=== PATIENT | male | born 1945 | race Caucasian/White ===

== ENCOUNTER 2022-06-06 10:15 | Emergency (ER) | payer OTHER, MEDICARE, SELFPAY ==
[2022-06-06 10:19] VITALS: BP 139/71; PULSE 43; TEMP 35.9; O2SAT 99; BMI 31.2
--- NOTE | 2022-06-06 10:38 | CRLHL7_ITS ---
For Patients: As a result of the Century Cures Act, medical imaging exams and procedure reports are released immediately into your electronic medical record. You may view this report before your referring provider. If you have questions, please contact your health care provider. Indication: Pain on lateral side of ankle Comparison: None available. Technique: AP, Lateral, and Oblique views right ankle were obtained Findings: There is no displaced fracture or dislocation. The ankle mortise is symmetrical. The talar dome is smooth and intact. Degenerative changes of the tibiotalar joint is appreciated with marginal osteophyte formation. There is moderate malleolar soft tissue swelling. Impression: Moderate malleolar soft tissue swelling and degenerative changes of the tibiotalar joint with acute osseous abnormality. Dictated by Parrish Flaherty MD @ 06/06/2022 11:40:16 AM (Electronically Signed)
[2022-06-06 11:16] VITALS: PULSE 64; O2SAT 97
--- NOTE | 2022-06-06 11:40 | ED_ITS ---
HPI - Extremity Injury (Lower) General Chief Complaint: Extremity Pain/Injury, Lower Stated Complaint: Right leg pain Time Seen by Provider: 06/06/22 10:31 History of Present Illness HPI Narrative: 76-year-old man presenting to the emergency department with complaint of right ankle pain. This began yesterday evening has continued through the morning. He has not tried any particular treatments. Does have a history of left knee pain and is anticipating replacement of his left knee soon as well as his right hip. His right hip is also acting up causing more discomfort. Describes it radiating pain down the upper leg a little bit and gestures to the groin area. Does use a cane in the right hand. Has not noticed any joint redness or swelling. Does not recall prior injury to his right ankle. Does have a history of DVT. Looks like is anticoagulated with apixaban. Does also have diclofenac gel but has not used it with regard to this pain. Rather distressing or degree of throbbing discomfort overnight in the inside of his right ankle. Later feels like he is going to need some better pain management to get him to his follow-up appointments at the [place]. he has evaluations pending for what he describes as skipped beats but also has been noted as bradycardia. He is asymptomatic with this. I see diagnoses of atrial bigeminy as well as bradycardia and record. Related Data Home Medications Medication Instructions Recorded Confirmed apixaban 5 mg tablet (Eliquis) 5 mg PO BID 01/03/22 01/03/22 hydrochlorothiazide 25 mg tablet 25 mg PO QAM 01/03/22 01/03/22 lisinopril 40 mg tablet 40 mg PO QDAY 01/03/22 01/03/22 Allergies Allergy/AdvReac Type Severity Reaction Status Date / Time No Known Allergies Allergy Verified 01/03/22 08:18 Review of Systems Status of ROS: Reports: 6 or more systems reviewed and unremarkable except as noted in History and below [facility] Medical History Atrial bigeminy Bradycardia Deep vein thrombosis (DVT) of right lower extremity History of DVT (deep vein thrombosis) Hypertension Infection due to severe acute respiratory syndrome coronavirus 2 (SARS-CoV-2) Pulmonary air embolism Short of breath on exertion Social History Smoking Status: Former smoker How often do you have a drink containing alcohol: never How often do you have six or more drinks on one occasion: Never AUDIT-C Alcohol total score: 0 Non-prescribed substance use: denies use Exam Narrative: Exam Narrative: Pleasant. A little hard of hearing. NAD. Well-perfused extremities are warm. Strong and equal dorsalis pedis pulses. Good strength. Flexion and extension o f the ankle on the right causes only a little discomfort inferior to the medial malleolus as he reports. Negative Homans. No swelling. Maybe mild erythema and some more prominent venous varicosities no medial aspect of the right ankle relative to the left. He is sore to palpation just inferior and slightly anterior to the medial malleolus. No bone percussive tenderness. No plantar tenderness. No laxity to anterior posterior or mediolateral stressors about the heel or ankle. Heart rate is little low around bradycardic and palpates same. Const: Vital Signs, click to edit/add: Vital Signs - 24 hr 06/06/22 10:19 06/06/22 11:16 Temperature 96.6 F L Pulse Rate [Pulse Oximeter] 43 L 64 Blood Pressure [Ri ght Upper Arm] 139/71 Pulse Oximetry 99 97 Oxygen Delivery Me thod Room Air Room Air Documenting provider has reviewed patient's vital signs: yes Course Vital Signs Vital signs: Initial Vital Signs Temperature 96.6 F L 06/06/22 10:19 Temperature Source Temporal Artery Scan 06/06/22 10:19 Pulse Rate 43 L 06/06/22 10:19 Blood Pressure 139/71 06/06/22 10:19 Blood Pressure Mean 93 06/06/22 10:19 Blood Pressure Position Sitting 06/06/22 10:19 Pulse Oximetry 99 06/06/22 10:19 Oxygen Delivery Method 06/06/22 10:19 Vital Signs Temperature 96.6 F L 06/06/22 10:19 Pulse Rate 43 L 06/06/22 10:19 Blood Pressure 139/71 06/06/22 10:19 Pulse Oximetry 99 06/06/22 10:19 Oxygen Delivery Method 06/06/22 10:19 Temperature 96.6 F L 06/06/22 10:19 Pulse Rate 64 06/06/22 11:16 Blood Pressure 139/71 06/06/22 10:19 Pulse Oximetry 97 06/06/22 11:16 Oxygen Delivery Method 06/06/22 11:16 MDM - Extremity Injury (Lower) MDM Narrative Medical decision making narrative: Will do an x-ray. There has been no fever and I do not see marked inflammatory changes nor I think further laboratory workup is warranted at this point. Furthermore this is brief duration. X-rays two view of the right ankle reviewed by me shows osteoarthritic changes. I do not see acute abnormality. Joint space looks to be fairly well maintained. Radiology over-read also noting soft tissue swelling. Did place some of his diclofenac gel over the medial malleolar aspect of the ankle. Medical Records Attestation: I reviewed the patient's medical records. Discharge Plan Discharge Clinical Impression: Ankle pain Patient Disposition: Home, Self-Care Condition: Stable Additional Instructions: I think it is still unclear as to what is causing your ankle pain. I do think that it might have been brought on by how you might be compensating for left knee pain. You do have some arthritis in the ankle. There are also varicose veins that might be a little inflamed. Since you are taking anticoagulation, regular dosing of ibuprofen or naproxen would not be a good idea. Here and there you could probably take up to 800 mg of ibuprofen 3 times a day or up to 500 mg of naproxen 2 times daily. Otherwise a longer-term and safer course of action would be to take up to 1000 mg of acetaminophen up to every 6 hours. If that is not helping, and especially for the the middle of the night throbbing pain, some Vida from [facility] might be helpful. Remember that there was 325 mg of acetaminophen in each tablet of this Vida. I would also encourage you to try your diclofenac gel first or maybe those Lidoderm patches cut down to fit as discussed. See how this goes over the next week and then re-evaluate. Has not been going on very long yet. I would in particular consider icing your ankle 2-3 times daily over the next few days. I like those screw top icing bags, fill with ice and then some water. Prescriptions: No Action hydrochlorothiazide 25 mg tablet 25 mg PO QAM Eliquis 5 mg tablet 5 mg PO BID lisinopril 40 mg tablet 40 mg PO QDAY Follow Up/Referrals: Provider,Not a Local [Primary Care Provider] - Stand Alone Forms: [facility] Info Instructions
== END 2022-06-06 11:57 | disposition home or self-care (01) ==
PROVIDERS: Emergency Provider Family Medicine
DX: M25.571 Pain in right ankle and joints of right foot (principal)
CPT/HCPCS: 73600; 99283

== ENCOUNTER 2023-09-28 10:01 | Emergency (ER) | payer OTHER, SELFPAY ==
--- NOTE | 2023-09-28 10:14 | ED.GENADULT ---
HPI - General Adult General Date Seen: 09/28/23 Chief complaint: Extremity Pain/Injury, Lower Stated complaint: L foot pain Time Seen by Provider: 09/28/23 10:13 History of Present Illness HPI narrative: 78 yo M with h/o DVT (on long-term anticoagulation with apixaban, recently consistent with taking his medication), HTN, CAD, carotid stenosis status post carotid endarterectomy, but no history of cancer, diabetes, or immunosuppression. He presents to the ER today with swelling, discomfort and erythema affecting his left foot. He does not have any recent injury or any known problems. It started about 3 or 4 days ago and has been getting gradually worse. He has noted that it now has also developed redness and swelling. He is a bit fatigued today and perhaps a bit achy but is not having any fever or chills. No swelling in his calf. No chest pain. He has no history of peripheral artery disease or diabetes or peripheral neuropathy. Related Data Home Medications Medication Instructions Recorded Confirmed apixaban 5 mg tablet (Eliquis) 5 mg PO BID 01/03/22 01/03/22 hydrochlorothiazide 25 mg tablet 25 mg PO QAM 01/03/22 01/03/22 lisinopril 40 mg tablet 40 mg PO QDAY 01/03/22 01/03/22 Previous Rx's Medication Instructions Recorded terbinafine HCl 1 % topical cream 1 applic topical BID #30 grams 09/28/23 Allergies Allergy/AdvReac Type Severity Reaction Status Date / Time No Known Allergies Allergy Verified 01/03/22 08:18 [facility] Medical History Atrial bigeminy Bradycardia Deep vein thrombosis (DVT) of right lower extremity History of DVT (deep vein thrombosis) Hypertension Infection due to severe acute respiratory syndrome coronavirus 2 (SARS-CoV-2) Pulmonary air embolism Short of breath on exertion Social History Smoking Status: Former smoker How often do you have a drink containing alcohol: never How often do you have six or more drinks on one occasion: Never AUDIT-C Alcohol total score: 0 Non-prescribed substance use: denies use Exam Narrative: Exam Narrative: Constitutional: Appears well-developed and well-nourished. Alert. Conversant. Non toxic. HENT: Head: Atraumatic. Nose: Nose normal. Mouth/Throat: Oral mucosa is clear and moist. no trismus. Eyes: Conjunctivae normal. EOM normal. Pupils equal, round, and reactive to light. No scleral icterus. Neck: Normal range of motion. Neck supple. No tracheal deviation present. Cardiovascular: Normal rate, regular rhythm. No gallop. No friction rub. No murmur heard. Symmetric PT artery pulses Pulmonary/Chest: Effort normal. No stridor. No respiratory distress. No wheezes. No rales. No rhonchi . No tenderness. Abdominal: Soft. No distension. No mass. No tenderness. No rebound. No guarding. Musculoskeletal: RUE: Normal range of motion. No tenderness. No deformity LUE: Normal range of motion. No tenderness. No deformity RLE: Normal range of motion. No edema. No tenderness. No deformity LLE: Normal range of motion in hip. Somewhat stiff in his knee and he has actually anticipating having a knee replacement in about 1 month by a surgeon at [place]. No calf edema. No palpable cord. There is erythema and subtle swelling affecting the forefoot, in particular adjacent to the 2nd-5th toes. There erythema spreads up the forefoot more on the lateral side medially about skilled nursing up the midfoot. There is very faint erythema extending proximally from there with a small faint tender all of ascending lymphangitis that extends to just proximal to the medial ankle.. No ankle or calf edema. There is maceration of the skin between the 3rd and 4th toes and the 4th and 5th toes which I think may either be from moisture or possibly a mild case of athlete's foot. Suspect this is the nidus for cellulitis. No palpable fluctuance. No crepitus or gas in the soft tissue. No deformity Neurological: Alert and oriented to person, place, and time. Normal strength. CN II-VII intact. No sensory deficit. GCS eye subscore is 4. GCS verbal subscore is 5. GCS motor subscore is 6. Normal coordination Skin: Skin is warm and dry. No rash noted. No pallor. Normal capillary refill. Psychiatric: Normal mood. Normal affect. Const: Vital Signs, click to edit/add: Vital Signs - 24 hr 09/28/23 10:21 Temperature 97.8 F Pulse Rate [Right Pulse Oximeter] 62 Respiratory Rate 18 Blood Pressure [Ri ght Upper Arm] 125/76 Pulse Oximetry 98 Oxygen Delivery Me thod Room Air Course Vital Signs Vital signs: Initial Vital Signs Temperature 97.8 F 09/28/23 10:21 Temperature Source Temporal Artery Scan 09/28/23 10:21 Pulse Rate 62 09/28/23 10:21 Respiratory Rate 18 09/28/23 10:21 Blood Pressure 125/76 09/28/23 10:21 Blood Pressure Mean 92 09/28/23 10:21 Blood Pressure Position Sitting 09/28/23 10:21 Pulse Oximetry 98 09/28/23 10:21 Oxygen Delivery Method Room Air 09/28/23 10:21 Vital Signs Temperature 97.8 F 09/28/23 10:21 Pulse Rate 62 09/28/23 10:21 Respiratory Rate 18 09/28/23 10:21 Blood Pressure 125/76 09/28/23 10:21 Pulse Oximetry 98 09/28/23 10:21 Oxygen Delivery Method Room Air 09/28/23 10:21 Temperature 97.8 F 09/28/23 10:21 Pulse Rate 62 09/28/23 10:21 Respiratory Rate 18 09/28/23 10:21 Blood Pressure 125/76 09/28/23 10:21 Pulse Oximetry 98 09/28/23 10:21 Oxygen Delivery Method Room Air 09/28/23 10:21 Medical Decision Making MDM Narrative Medical decision making narrative: This patient presents for evaluation of skin redness, swelling, discomfort affecting his left forefoot and extending onto his left mid foot with a small tender over ascending lymphangitis just up to the ankle. The history, physical exam is consistent with cellulitis. There do not appear at this time to be any complication of cellulitis including abscess, necrotizing fascitis, lymphangitis, lymphadenitis, osteomyelitis, sepsis, or shock. The patient is not immunosuppressed or diabetic. He has a history of DVT affecting his right leg, years ago but has been on apixaban. He does not have any swelling or edema of the ankle or calf or other parts of his legs to suggest DVT today. No history of trauma to raise concern for possible toe fracture or forefoot fracture. He does have signs of athlete's foot which probably created maceration between the toes and was the nidus for this infection. Supportive outpatient management is indicated with antibiotics. Will put him on Bactrim and Keflex. Also topical treatment for athlete's foot. He requested [facility] prescriptions. The patient is instructed to follow-up with primary care physician to ensure no progression and rapid resolution and given precautions to return if high fever, spread greater than 2cm outside of the marked area, worsening pain, vomiting or any other worsening. Questions answered and return precautions reviewed. Discharge Plan Discharge Clinical Impression: Cellulitis of foot Patient Disposition: Home, Self-Care Condition: Stable Instructions: Cellulitis (ED) Additional Instructions: As we discussed, please take the antibiotics and use the antifungal cream for her foot to treat athlete's foot. Monitor the infection carefully and if you are getting worse-such as spreading redness, worsening pain, increasing swelling, fever chills, worsening weakness, please come back to the ER or see her doctor right away to be rechecked. Prescriptions: New terbinafine HCl 1 % cream 1 applic topical BID Qty: 30 0RF No Action hydrochlorothiazide 25 mg tablet 25 mg PO QAM Eliquis 5 mg tablet 5 mg PO BID lisinopril 40 mg tablet 40 mg PO QDAY Follow Up/Referrals: Provider,Not a Local [Primary Care Provider] - Stand Alone Forms: [employer] Info Instructions
[2023-09-28 10:21] VITALS: BP 125/76; PULSE 62; RESP 18; TEMP 36.6; O2SAT 98
--- OUTSIDE RECORDS SUMMARY | 2023-09-28 10:50 | XMS_ITS | Continuity of Care Document ---
Author Name [facility] Organization [facility] Care Team Providers Care Primary Care Nurse Name Role Phone [facility] Unavailable Unavailable Problems Combined list of problems from Department of Defense and [facility] Affairs facilities. It does not include entries that were removed or entered in error. 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 [facility] Cataract nos Active Condition [facility] Constipation Active Condition [facility] Environmental Allergies (ICD-9-CM 477.9) Active Condition [facility] External thrombosed hemorrhoids (ICD-9-CM 455.4) Active Condition [facility] Gastroesophageal Reflux Disorder * (ICD-9-CM 530.81) Active Condition [facility] Gout * (ICD-9-CM 274.9) Active Condition [facility] Hiatal hernia * (ICD-9-CM 553.3) Active Condition [facility] History of carotid endarterectomy Active Condition Mar 13, 2023 Entered By: DESTINI JJ Comment: Rt CEA and bovine patch repair, 08/2022 [facility] Hyperlipidemia Active Condition [facility] Hypertension, Nos Active [facility] Knee pain Active Condition [facility] Long-term current use of anticoagulant Active Condition [facility] Obesity * (ICD-9-CM 278.00) Active Condition [facility] Obstructive Sleep Apnea (Adult) (Pediatric) (ICD-9-CM 327.23) Active Condition [facility] Obstructive sleep apnea syndrome Active Condition [facility] Osteoarthritis Active Condition Aug 072012 Entered By: VALERY BRITO Comment: S/P left total hip in 2005. 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 clerk [facility] Ventricular premature complex Active Condition [facility] Diagnosis: ICD-10-CM Z79.01 snf (current) use of anticoagulants Active Diagnosis ISAIAH Tam [facility] Diagnosis: ICD-10-CM M79.673 Pain in unspecified foot Active Diagnosis KATIA BAILEY [facility] Diagnosis: ICD-10-CM H90.3 Sensorineural hearing loss, bilateral Active Diagnosis [facility] Diagnosis: ICD-10-CM M25.569 Pain in unspecified knee Active Diagnosis KATAI BAILEY [facility] Diagnosis: ICD-10-CM H90.5 Unspecified sensorineural hearing loss Active Diagnosis [facility] Diagnosis: ICD-10-CM Z46.1 Encounter for fitting and adjustment of hearing aid Active Diagnosis [facility] Diagnosis: ICD-10-CM Z71.9 Counseling, unspecified Active Diagnosis [facility] Diagnosis: ICD-10-CM Z23 Encounter for immunization Active Diagnosis [facility] Diagnosis: ICD-10-CM Z98.890 Other specified postprocedural states Active Diagnosis [facility] Diagnosis: ICD-10-CM 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 [facility] Yonatan [facility] Diagnosis: ICD-10-CM Z13.6 Encounter for screening for cardiovascular disorders Active Diagnosis [facility] Diagnosis: ICD-10-CM R31.9 Hematuria, unspecified Active Diagnosis [facility] Diagnosis: ICD-10-CM I65.21 Occlusion and stenosis of right carotid artery Active Diagnosis [facility] Diagnosis: ICD-10-CM H93.13 Tinnitus, bilateral Active Diagnosis [facility] Diagnosis: ICD-10-CM R33.9 Retention of urine, unspecified Active Diagnosis NICOLÁS CARCAMO [facility] Diagnosis: ICD-10-CM Z71.89 Other specified counseling Active Diagnosis [facility] Diagnosis: ICD-10-CM R26.89 Other abnormalities of gait and mobility Active Diagnosis [facility] SEQUE[facility] Diagnosis: ICD-10-CM I10 Essential (primary) hypertension Active Diagnosis [facility] Diagnosis: ICD-10-CM Z48.89 Encounter for other specified surgical aftercare Active Diagnosis [facility] CAR[facility] Diagnosis: ICD-10-CM I65.29 Occlusion and stenosis of unspecified carotid artery Active Diagnosis [facility] oYnatan [facility] Admit Reason: R CAROTID ARTERY STENOSIS Active Diagnosis [facility] Diagnosis: ICD-10-CM H53.9 Unspecified visual disturbance Active Diagnosis [facility] Diagnosis: ICD-10-CM E86.0 Dehydration Active Diagnosis [facility] Diagnosis: ICD-10-CM 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 Medication Details Route Status Patient Instructions Prescription Expires Prescription Number Last Dispense Date Ordering Provider Order Date Order Qty Source ACETAMINOPH EN 500MG TAB TAKE TWO TABLETS BY MOUTH THREE TIMES A DAY NEEDED FOR PAIN FOR PAIN ORALLY 09/27/2022 [id number] PATRIC MAURICE 2022 100 [facility] APIXABAN 5MG TAB TAKE ONE TABLET BY MOUTH EVERY 12 HOURS TO TREAT AND/OR PREVENT BLOOD CLOTS ORALLY SUSPEND ED 05/25/2024 [id number] NO AZEVEDO 2023 180 [facility] APIXABAN 5MG TAB TAKE ONE TABLET BY MOUTH EVERY 12 HOURS TO TREAT AND/OR PREVENT BLOOD CLOTS ORALLY DISCONT INUED 09/03/2023 [id number] NO AZEVEDO 2022 180 [facility] APIXABAN 5MG TAB TAKE ONE TABLET BY MOUTH EVERY 12 HOURS TO PREVENT BLOOD CLOTS ORALLY DISCONT INUED 09/28/2022 [id number] ANITRA LU 2022 60 [facility] APIXABAN 5MG TAB TAKE ONE TABLET BY MOUTH EVERY 12 HOURS TO PREVENT BLOOD CLOTS ORALLY DISCONT INUED 02/21/2023 [id number] NITHYA CAIN 2021 180 [facility] ASPIRIN 81MG TAB,EC TAKE ONE TABLET BY MOUTH EVERY DAY TO PREVENT BLOOD CLOTS DO NOT CHEW ORALLY 08/29/2023 [id number] PATRIC MAURICE 2022 120 [facility] ATORVASTATI N CA 40MG TAB TAKE ONE TABLET BY MOUTH AT BEDTIME FOR CHOLESTE ROL ORALLY SUSPEND ED 06/04/2024 [id number] 4 APOLLO JJ 2023 90 [place] [facility] ATORVASTATI N CA 40MG TAB TAKE ONE TABLET BY MOUTH AT BEDTIME FOR CHOLESTE ROL ORALLY DISCONT INUED 08/21/2023 [id number] 3 JJ,ND NA 2022 90 [place] [facility] DICLOFENAC NA 1% GEL,TOP APPLY 4 GRAMS TOPICALL Y TWICE A DAY TO AFFECTED AREA FOR PAIN. *USE DOSE CARD IN BOX TO MEASURE DOSE. MAX 32 GRAMS PER DAY. TOPICA LLY ACTIVE 10/24/2023 [id number] CHETANER,BIGG REL 2022 200 [place] [facility] DOCUSATE NA 50MG/SENNOS IDES 8.6MG TAB TAKE 1 TABLET BY MOUTH TWICE A DAY NEEDED FOR CONSTIPA TION ORALLY SUSPEND ED 03/13/2024 [id number] [place] 2022 100 [place] [facility] DOCUSATE NA 50MG/SENNOS IDES 8.6MG TAB TAKE 1 TABLET BY MOUTH TWICE A DAY NEEDED FOR CONSTIPA TION ORALLY DISCONT INUED 12/31/2022 [id number] 3 [place] NA 2022 100 [place] [facility] DOCUSATE NA 50MG/SENNOS IDES 8.6MG TAB TAKE 1 TABLET BY MOUTH TWICE A DAY NEEDED FOR CONSTIPA TION ORALLY 01/30/2023 [id number] 3 [place] NA 2022 100 [place] [facility] DOCUSATE NA 50MG/SENNOS IDES 8.6MG TAB TAKE 1 TABLET BY MOUTH TWICE A DAY NEEDED FOR CONSTIPA TION ORALLY 10/18/2022 [id number] ANITRA LU 2022 100 [place] [facility] [facility] FINASTERIDE 5MG TAB TAKE ONE TABLET BY MOUTH EVERY DAY FOR PROSTATE ORALLY ACTIVE 12/05/2023 [id number] ALCIRA CROFT 2023 30 [place] [facility] FINASTERIDE 5MG TAB TAKE ONE TABLET BY MOUTH EVERY DAY FOR PROSTATE ORALLY DISCONT INUED 12/05/2023 [id number] ALCIRA CROFT 2022 30 [place] [facility] [facility] HYDROCHLORO THIAZIDE 12.5MG TAB TAKE ONE TABLET BY MOUTH EVERY DAY FOR BLOOD PRESSURE ORALLY SUSPEND ED 05/18/2024 [id number] 4 APOLLO JJ NA 2023 90 [place] [facility] HYDROCHLORO THIAZIDE 12.5MG TAB TAKE ONE TABLET BY MOUTH EVERY DAY FOR BLOOD PRESSURE ORALLY DISCONT INUED 08/14/2023 [id number] PARVIZ,APOLLO NA 2022 90 [place] [facility] LIDOCAINE 5% PATCH APPLY ONE PATCH FOR EACH KNEE TOPICALL Y EVERY DAY NEEDED FOR UP TO 12 HOURS FOR PAIN TOPICA LLY ACTIVE 07/17/2024 [id number] APOLLO JJ NA 2023 180 [place] [facility] LIDOCAINE 5% PATCH APPLY 1 PATCH TOPICALL Y EVERY DAY NEEDED FOR UP TO 12 HOURS FOR PAIN TOPICA LLY DISCONT INUED (EDIT) 07/15/2024 [id number] APOLLO JJ NA 2023 60 [place] [facility] LIDOCAINE 5% PATCH APPLY 1 PATCH TOPICALL Y EVERY DAY NEEDED FOR UP TO 12 HOURS FOR PAIN TOPICA LLY DISCONT INUED (EDIT) 08/05/2023 [id number] APOLLO JJ NA 2023 30 [place] [facility] LIDOCAINE 5% PATCH APPLY 1 PATCH TOPICALL Y EVERY DAY NEEDED FOR UP TO 12 HOURS FOR PAIN TOPICA LLY DISCONT INUED 07/09/2023 [id number] APOLLO JJ NA 2023 30 [place] [facility] LIDOCAINE 5% PATCH APPLY 1 PATCH TOPICALL Y EVERY DAY NEEDED FOR PAIN TOPICA LLY DISCONT INUED 06/03/2023 [id number] 3 APOLLO JJ NA 2022 30 [place] [facility] LIDOCAINE 5% PATCH APPLY 1 PATCH TOPICALL Y EVERY DAY NEEDED FOR PAIN TOPICA LLY DISCONT INUED 04/26/2023 [id number] 3 PARVIZ,APOLLO NA 2022 30 [place] [facility] LIDOCAINE 5% PATCH APPLY 1 PATCH TOPICALL Y EVERY DAY NEEDED FOR PAIN TOPICA LLY DISCONT INUED 03/05/2023 [id number] PARVIZ,APOLLO NA 2022 30 [place] [facility] LIDOCAINE 5% PATCH APPLY 1 PATCH TOPICALL Y EVERY DAY NEEDED FOR PAIN TOPICA LLY DISCONT INUED 01/29/2023 [id number] PARVIZ,HI NA 2022 30 [place] [facility] LIDOCAINE 5% PATCH APPLY 1 PATCH TOPICALL Y EVERY DAY NEEDED FOR PAIN TOPICA LLY DISCONT INUED 01/10/2023 [id number] 3 PARVIZ,APOLLO NA 2022 30 [place] [facility] LIDOCAINE 5% PATCH APPLY 1 PATCH TOPICALL Y EVERY DAY NEEDED FOR PAIN TOPICA LLY DISCONT INUED 12/04/2022 [id number] PARVIZ,APOLLO NA 2022 30 [place] [facility] LIDOCAINE 5% PATCH APPLY 1 PATCH TOPICALL Y EVERY DAY NEEDED FOR PAIN TOPICA LLY DISCONT INUED 10/30/2022 [id number] PARVIZ,APOLLO NA 2022 30 [place] [facility] LIDOCAINE 5% PATCH APPLY 1 PATCH TOPICALL Y EVERY DAY NEEDED FOR PAIN TOPICA LLY 09/27/2022 [id number] SYRIACPATRIC A 2022 30 [place] [facility] LISINOPRIL 40MG TAB TAKE ONE TABLET BY MOUTH EVERY DAY FOR HEART AND BLOOD PRESSURE ORALLY ACTIVE 12/12/2023 [id number] BIGG IRENE REL 2022 90 [place] [facility] LISINOPRIL 40MG TAB TAKE ONE TABLET BY MOUTH EVERY DAY FOR HEART AND BLOOD PRESSURE ORALLY DISCONT INUED 10/18/2022 [id number] BIGG IRENE 2021 90 [place] [facility] METOPROLOL SUCCINATE 50MG TAB,SA TAKE ONE-HALF TABLET BY MOUTH EVERY DAY ORALLY SUSPEND ED 12/11/2023 [id number] TASH DIA 2022 45 [place] [facility] METOPROLOL SUCCINATE 50MG TAB,SA TAKE ONE-HALF TABLET BY MOUTH EVERY DAY ORALLY DISCONT INUED 01/28/2023 [id number] TASH DIA 2021 45 [place] [facility] PSYLLIUM PWDR,ORAL TAKE 1 TABLESPO ONFUL BY MOUTH EVERY DAY FOR REGULAR BOWEL MOVEMENT S ORALLY ACTIVE 03/13/2024 [id number] APOLLO JJ 2022 1170 [place] [facility] [facility] TAMSULOSIN HCL 0.4MG CAP TAKE ONE CAPSULE BY MOUTH EVERY EVENING FOR PROSTATE ORALLY SUSPEND ED 04/27/2024 [id number] 4 APOLLO JJ 2022 90 [place] [facility] TAMSULOSIN HCL 0.4MG CAP TAKE ONE CAPSULE BY MOUTH EVERY EVENING FOR PROSTATE ORALLY DISCONT INUED 05/10/2023 [id number] 3 APOLLO JJ 2022 30 [place] [facility] TAMSULOSIN HCL 0.4MG CAP TAKE ONE CAPSULE BY MOUTH EVERY EVENING FOR PROSTATE ORALLY DISCONT INUED 04/09/2023 [id number] 3 APOLLO JJ 2022 30 [place] [facility] TAMSULOSIN HCL 0.4MG CAP TAKE ONE CAPSULE BY MOUTH EVERY EVENING FOR PROSTATE ORALLY DISCONT INUED 03/04/2023 [id number] 3 APOLLO JJ 2022 30 [place] [facility] TAMSULOSIN HCL 0.4MG CAP TAKE ONE CAPSULE BY MOUTH EVERY EVENING FOR PROSTATE ORALLY DISCONT INUED 02/25/2023 [id number] 3 APOLLO JJ 2022 30 [place] [facility] TAMSULOSIN HCL 0.4MG CAP TAKE ONE CAPSULE BY MOUTH EVERY EVENING FOR PROSTATE ORALLY DISCONT INUED 02/21/2023 [id number] 3 JJ,HI NA 2022 30 [facility] TAMSULOSIN HCL 0.4MG CAP TAKE ONE CAPSULE BY MOUTH EVERY EVENING FOR PROSTATE ORALLY DISCONT INUED 01/10/2023 [id number] 3 JJ,HI NA 2022 30 [facility] TAMSULOSIN HCL 0.4MG CAP TAKE ONE CAPSULE BY MOUTH EVERY EVENING FOR PROSTATE ORALLY DISCONT INUED 12/11/2022 [id number] 3 JJ,ND NA 2022 30 [facility] TAMSULOSIN HCL 0.4MG CAP TAKE ONE CAPSULE BY MOUTH EVERY EVENING FOR PROSTATE ORALLY DISCONT INUED 12/04/2022 [id number] 3 JJ,ND NA 2022 30 [facility] TAMSULOSIN HCL 0.4MG CAP TAKE ONE CAPSULE BY MOUTH EVERY EVENING FOR PROSTATE ORALLY DISCONT INUED 10/30/2022 [id number] 3 JJ,ND NA 2022 30 [facility] TAMSULOSIN HCL 0.4MG CAP TAKE ONE CAPSULE BY MOUTH EVERY EVENING FOR PROSTATE ORALLY 09/27/2022 [id number] 3 SYRIACPATRIC A 2022 30 [facility] VANICREAM APPLY THIN LAYER TOPICALL Y TWICE A DAY FOR DRY SKIN TOPICA LLY ACTIVE 03/13/2024 [id number] 3 JJ,HI NA 2022 454 [facility] Immunizations Combined list of available immunizations from the Department of Defense and Veterans Affairs facilities. Immunization Series Date Given Administered By Site Reaction Lot Number CVX Code Drug Customer Success Director Status Comments Source COVID-19 ([employer]), MRNA, LNP-S, PF, PAULINA-SUCROSE, 30 MCG/0.3 ML (AGES 12+ YEARS) 1 2022 MISTI SOLIMAN LEFT DELTO ID [id number] 309 complet ed [facility] INFLUENZA, HIGH-DOSE, QUADRIVALENT 2022 LEWIS CATES LEFT DELTO ID [id number] 197 complet ed [facility] COVID-19 ([facility]), MRNA, LNP-S, BIVALENT BOOSTER, PF, 30 MCG/0.3 ML DOSE 1 2022 IAN HIGGINS LEFT DELTO ID [id number] 300 complet ed [facility] INFLUENZA VACCINE, QUADRIVALENT, ADJUVANTED 2021 205 complet ed [facility] PNEUMOCOCCAL CONJUGATE PCV20, POLYSACCHARID E [id number] CONJUGATE, ADJUVANT, PF 2021 216 complet ed [facility] COVID-19 ([facility]), MRNA, LNP-S, PF, 30 MCG/0.3 ML DOSE 3 2020 208 complet ed PFR; [id number]; 1 [facility] INFLUENZA, INJECTABLE, QUADRIVALENT, PRESERVATIVE FREE 2020 150 complet ed [facility] COVID-19 ([employer]), MRNA, LNP-S, PF, 30 MCG/0.3 ML DOSE 2 2020 208 complet ed PFR; [id number]; 1 [facility] COVID-19 ([employer]), MRNA, LNP-S, PF, 30 MCG/0.3 ML DOSE 1 2020 208 complet ed PFR; [id number]; 1 [facility] TD (ADULT), 5 LF TETANUS TOXOID, PRESERVATIVE FREE, ADSORBED 2019 113 complet ed [facility] INFLUENZA, INJECTABLE, QUADRIVALENT, PRESERVATIVE FREE 2019 150 complet ed [facility] ZOSTER RECOMBINANT 2 2019 187 complet ed [facility] ZOSTER RECOMBINANT 1 2019 187 complet ed [facility] INFLUENZA, SEASONAL, INJECTABLE, PRESERVATIVE FREE 2018 140 complet ed [facility] INFLUENZA, SEASONAL, INJECTABLE, PRESERVATIVE FREE 2017 140 complet ed [facility] INFLUENZA, HIGH DOSE SEASONAL 2016 135 complet ed [facility] PNEUMOCOCCAL CONJUGATE PCV 13 2015 133 complet ed [employer] lot [id number] exp 06/25 [facility] INFLUENZA, HIGH DOSE SEASONAL 2015 135 complet ed [facility] INFLUENZA, HIGH DOSE SEASONAL 2014 135 complet ed [facility] PNEUMOCOCCAL POLYSACCHARID E [id number] 2014 33 complet ed [employer]; [id number]; 6 [facility] INFLUENZA, UNSPECIFIED FORMULATION 2013 88 complet ed [facility] INFLUENZA, UNSPECIFIED FORMULATION 2012 88 complet ed [facility] TDAP 2012 115 complet ed [id number] A [facility] INFLUENZA, UNSPECIFIED FORMULATION 2011 88 complet ed [facility] ZOSTER LIVE 2011 121 complet ed [employer] Lot#[id number] A Exp.Date- -06-28-12 [facility] INFLUENZA, UNSPECIFIED FORMULATION 2010 88 complet ed [facility] INFLUENZA, UNSPECIFIED FORMULATION 2009 88 complet ed [facility] INFLUENZA, UNSPECIFIED FORMULATION 2008 88 complet ed [facility] INFLUENZA, UNSPECIFIED FORMULATION 2008 88 complet ed [facility] PNEUMOCOCCAL, UNSPECIFIED FORMULATION 2007 109 complet ed [facility] INFLUENZA, UNSPECIFIED FORMULATION 2006 88 complet ed [facility] TD (ADULT), 2 LF TETANUS TOXOID, PRESERVATIVE FREE, ADSORBED 2005 09 complet ed [facility] INFLUENZA, UNSPECIFIED FORMULATION 2005 88 complet ed [facility] INFLUENZA, UNSPECIFIED FORMULATION 2004 88 complet ed [facility] TETANUS TOXOID, UNSPECIFIED FORMULATION 2004 NONE 112 complet ed [facility] TD(ADULT) UNSPECIFIED FORMULATION 2002 MARCO MORA 139 complet ed [facility] Results Combined list of recent chemistry, hematology and other laboratory results from Department of Defense and Veterans Affairs, ranging from 15 months to all on record, depending upon the facility. Order Name Results Value Reference Range Date Interpretation Specimen Comments Source BASIC METABOLI C PANEL+MG CREATININE [MASS/VOLU ME] IN SERUM OR PLASMA 1.2 0.7 - 1.2 07/10 Specimen Type: PLASMA No comment entered. Ordering Provider: DESTINI JJ Report Released Date/Time: Jun 13, 2022 01:54 PM Reporting Lab: [facility] [phone] Performing Lab: [facility] [phone] [place] [facility] BASIC METABOLI C PANEL+MG UREA NITROGEN [MASS/VOLU ME] IN SERUM OR PLASMA 23 8 - 26 07/10 Specimen Type: PLASMA No comment entered. Ordering Provider: DESTINI JJ Report Released Date/Time: Jun 13, 2022 01:54 PM Reporting Lab: [facility] [address] Performing Lab: [facility] [address] [place] [facility] BASIC METABOLI C PANEL+MG GLUCOSE [MASS/VOLU ME] IN SERUM OR PLASMA 106 70 - 100 07/10 H Specimen Type: PLASMA No comment entered. Ordering Provider: DESTINI JJ Report Released Date/Time: Jun 13, 2022 01:54 PM Reporting Lab: [facility] [address] Performing Lab: [facility] [address] [place] [facility] BASIC METABOLI C PANEL+MG SODIUM [MOLES/VOL UME] IN SERUM OR PLASMA 140 136 - 145 07/10 Specimen Type: PLASMA No comment entered. Ordering Provider: DESTINI JJ Report Released Date/Time: Jun 13, 2022 01:54 PM Reporting Lab: [facility] [address] Performing Lab: [facility] [address] [place] [facility] BASIC METABOLI C PANEL+MG POTASSIUM [MOLES/VOL UME] IN SERUM OR PLASMA 4.2 3.5 - 5.1 07/10 Specimen Type: PLASMA No comment entered. Ordering Provider: DESTINI JJ Report Released Date/Time: Jun 13, 2022 01:54 PM Reporting Lab: [facility] [address] Performing Lab: [facility] [address] [place] [facility] BASIC METABOLI C PANEL+MG CHLORIDE [MOLES/VOL UME] IN SERUM OR PLASMA 109 98 - 107 07/10 H Specimen Type: PLASMA No comment entered. Ordering Provider: DESTINI JJ Report Released Date/Time: Jun 13, 2022 01:54 PM Reporting Lab: [facility] [address] Performing Lab: [facility] [address] [place] [facility] BASIC METABOLI C PANEL+MG CARBON DIOXIDE, TOTAL [MOLES/VOL UME] IN SERUM OR PLASMA 23 22 - 29 07/10 Specimen Type: PLASMA No comment entered. Ordering Provider: DESTINI JJ Report Released Date/Time: Jun 13, 2022 01:54 PM Reporting Lab: [facility] [address] Performing Lab: [facility] [address] [place] [facility] BASIC METABOLI C PANEL+MG CALCIUM [MASS/VOLU ME] IN SERUM OR PLASMA 9.2 8.4 - 10.2 07/10 Specimen Type: PLASMA No comment entered. Ordering Provider: DESTINI JJ Report Released Date/Time: Jun 13, 2022 01:54 PM Reporting Lab: [facility] [address] Performing Lab: [facility] [address] [place] [facility] BASIC METABOLI C PANEL+MG MAGNESIUM [MASS/VOLU ME] IN SERUM OR PLASMA 2.1 1.6 - 2.6 07/10 Specimen Type: PLASMA No comment entered. Ordering Provider: DESTINI JJ Report Released Date/Time: Jun 13, 2022 01:54 PM Reporting Lab: [facility] [address] Performing Lab: [facility] [address] [place] [facility] BASIC METABOLI C PANEL+MG ANION GAP IN SERUM OR PLASMA 8 5 - 15 07/10 Specimen Type: PLASMA No comment entered. Ordering Provider: DESTINI JJ Report Released Date/Time: Jun 13, 2022 01:54 PM Reporting Lab: [facility] [address] Performing Lab: [facility] [address] [place] [facility] BASIC METABOLI C PANEL+MG GLOMERULAR FILTRATION RATE/1.73 SQ M.PREDICTE D [VOLUME RATE/AREA] IN SERUM, PLASMA OR BLOOD BY CREATININE -BASED FORMULA (CKD-EPI 2020) 62 60 07/10 Specimen Type: PLASMA No comment entered. Ordering Provider: DESTINI JJ Report Released Date/Time: Jun 13, 2022 01:54 PM Reporting Lab: [facility] [address] Performing Lab: [facility] [address] [place] [facility] AST/SGOT ASPARTATE AMINOTRANS FERASE [ENZYMATIC ACTIVITY/V OLUME] IN SERUM OR PLASMA 16 <34 - 34 04/22 Specimen Type: PLASMA No comment entered. Ordering Provider: KATHERYN AZEVEDO Report Released Date/Time: Mar 31, 2023 09:22 AM Reporting Lab: [facility] [address] Performing Lab: [facility] [address] [place] [facility] CREATINI NE(INCLU JOEY EGFR) CREATININE [MASS/VOLU ME] IN SERUM OR PLASMA 1.2 0.7 - 1.2 04/22 Specimen Type: PLASMA No comment entered. Ordering Provider: KATHERYN AZEVEDO Report Released Date/Time: Mar 31, 2023 09:22 AM Reporting Lab: [facility] [address] Performing Lab: [facility] [address] [place] [facility] CREATINI NE(INCLU JOEY EGFR) GLOMERULAR FILTRATION RATE/1.73 SQ M.PREDICTE D [VOLUME RATE/AREA] IN SERUM, PLASMA OR BLOOD BY CREATININE -BASED FORMULA (CKD-EPI 2020) 62 60 04/22 Specimen Type: PLASMA No comment entered. Ordering Provider: KATHERYN AZEVEDO Report Released Date/Time: Mar 31, 2023 09:22 AM Reporting Lab: [facility] [address] Performing Lab: [facility] [address] [place] [facility] ALT/SGPT ALANINE AMINOTRANS FERASE [ENZYMATIC ACTIVITY/V OLUME] IN SERUM OR PLASMA 20 <55 - 55 04/22 Specimen Type: PLASMA No comment entered. Ordering Provider: KATHERYN AZEVEDO Report Released Date/Time: Mar 31, 2023 09:22 AM Reporting Lab: [facility] [address] Performing Lab: [facility] [address] [place] [facility] CBC LEUKOCYTES [#/VOLUME] IN BLOOD BY AUTOMATED COUNT 6.53 4.0 - 11.0 04/22 Specimen Type: BLOOD No comment entered. Ordering Provider: KATHERYN AZEVEDO Report Released Date/Time: Mar 31, 2023 09:22 AM Reporting Lab: [facility] [id number] Performing Lab: [facility] [id number] [place] [facility] ERYTHROCYT ES [#/VOLUME] IN BLOOD BY AUTOMATED COUNT 4.84 4.6 - 6.2 04/22 Specimen Type: BLOOD No comment entered. Ordering Provider: KATHERYN AZEVEDO Report Released Date/Time: Mar 31, 2023 09:22 AM Reporting Lab: [facility] [id number] Performing Lab: [facility] [id number] [place] [facility] CBC HEMOGLOBIN [MASS/VOLU ME] IN BLOOD 15.3 13.5 - 17.9 04/22 Specimen Type: BLOOD No comment entered. Ordering Provider: KATHERYN AZEVEDO Report Released Date/Time: Mar 31, 2023 09:22 AM Reporting Lab: [facility] [id number] Performing Lab: [facility] [id number] [place] [facility] CBC HEMATOCRIT [VOLUME FRACTION] OF BLOOD BY AUTOMATED COUNT 46.0 41 - 54 04/22 Specimen Type: BLOOD No comment entered. Ordering Provider: KATHERYN AZEVEDO Report Released Date/Time: Mar 31, 2023 09:22 AM Reporting Lab: [facility] [address] Performing Lab: [facility] [address] [place] [facility] CBC MCV [ENTITIC VOLUME] BY AUTOMATED COUNT 95.0 80 - 100 04/22 Specimen Type: BLOOD No comment entered. Ordering Provider: KATHERYN AZEVEDO Report Released Date/Time: Mar 31, 2023 09:22 AM Reporting Lab: [facility] [address] Performing Lab: [facility] [address] [place] [facility] CBC MCH [ENTITIC MASS] BY AUTOMATED COUNT 31.6 27 - 33 04/22 Specimen Type: BLOOD No comment entered. Ordering Provider: KATHERYN AZEVEDO Report Released Date/Time: Mar 31, 2023 09:22 AM Reporting Lab: [facility] [address] Performing Lab: [facility] [address] [place] [facility] CBC MCHC [MASS/VOLU ME] BY AUTOMATED COUNT 33.3 32.0 - 37.5 04/22 Specimen Type: BLOOD No comment entered. Ordering Provider: KATHERYN AZEVEDO Report Released Date/Time: Mar 31, 2023 09:22 AM Reporting Lab: [facility] [address] Performing Lab: [facility] [address] [facility] CBC PLATELETS [#/VOLUME] IN BLOOD BY AUTOMATED COUNT 166 150 - 400 04/22 Specimen Type: BLOOD No comment entered. Ordering Provider: KATHERYN AZEVEDO Report Released Date/Time: Mar 31, 2023 09:22 AM Reporting Lab: [facility] [address] Performing Lab: [facility] [address] [place] [facility] CBC PLATELET MEAN VOLUME [ENTITIC VOLUME] IN BLOOD BY AUTOMATED COUNT 10.0 7.4 - 10.4 04/22 Specimen Type: BLOOD No comment entered. Ordering Provider: KATHERYN AZEVEDO Report Released Date/Time: Mar 31, 2023 09:22 AM Reporting Lab: [facility] [address] Performing Lab: [facility] [address] [place] [facility] CBC ERYTHROCYT E DISTRIBUTI ON WIDTH [RATIO] BY AUTOMATED COUNT 13.1 11.5 - 14.5 04/22 Specimen Type: BLOOD No comment entered. Ordering Provider: KATHERYN AZEVEDO Report Released Date/Time: Mar 31, 2023 09:22 AM Reporting Lab: [facility] [address] Performing Lab: [facility] [address] [facility] CBC PLATELETS RETICULATE D/100 PLATELETS IN BLOOD BY AUTOMATED COUNT 2.2 0 - 10 04/22 Specimen Type: BLOOD No comment entered. Ordering Provider: KATHERYN AZEVEDO Report Released Date/Time: Mar 31, 2023 09:22 AM Reporting Lab: [facility] [address] Performing Lab: [facility] [address] [facility] .OCCULT BLOOD(FI T) HEMOGLOBIN .GASTROINT ESTINAL.LO WER [PRESENCE] IN STOOL BY IMMUNOASSA Y Negative 01/26 Specimen Type: FECES No comment entered. Ordering Provider: LISA MARADIAGA Report Released Date/Time: Jan 26, 2023 08:24 AM Reporting Lab: [facility] [address] Performing Lab: [facility] [address] [facility] [address] [facility] CBC LEUKOCYTES [#/VOLUME] IN BLOOD BY AUTOMATED COUNT 5.91 4.0 - 11.0 09/05 Specimen Type: BLOOD No comment entered. Ordering Provider: KATHERYN AZEVEDO Report Released Date/Time: Sep 02, 2022 08:25 AM Reporting Lab: [facility] [address] Performing Lab: [facility] [address] [facility] CBC ERYTHROCYT ES [#/VOLUME] IN BLOOD BY AUTOMATED COUNT 4.55 4.6 - 6.2 09/05 L Specimen Type: BLOOD No comment entered. Ordering Provider: KATHERYN AZEVEDO Report Released Date/Time: Sep 02, 2022 08:25 AM Reporting Lab: [facility] [address] Performing Lab: [facility] [address] [facility] CBC HEMOGLOBIN [MASS/VOLU ME] IN BLOOD 13.9 13.5 - 17.9 09/05 Specimen Type: BLOOD No comment entered. Ordering Provider: KATHERYN AZEVEDO Report Released Date/Time: Sep 02, 2022 08:25 AM Reporting Lab: [facility] [address] Performing Lab: [facility] [address] [place] [facility] CBC HEMATOCRIT [VOLUME FRACTION] OF BLOOD BY AUTOMATED COUNT 42.1 41 - 54 09/05 Specimen Type: BLOOD No comment entered. Ordering Provider: KATHERYN AZEVEDO Report Released Date/Time: Sep 02, 2022 08:25 AM Reporting Lab: [facility] [address] Performing Lab: [facility] [address] [place] [facility] CBC MCV [ENTITIC VOLUME] BY AUTOMATED COUNT 92.5 80 - 100 09/05 Specimen Type: BLOOD No comment entered. Ordering Provider: KATHERYN AZEVEDO Report Released Date/Time: Sep 02, 2022 08:25 AM Reporting Lab: [facility] [address] Performing Lab: [facility] [address] [place] [facility] CBC MCH [ENTITIC MASS] BY AUTOMATED COUNT 30.5 27 - 33 09/05 Specimen Type: BLOOD No comment entered. Ordering Provider: KATHERYN AZEVEDO Report Released Date/Time: Sep 02, 2022 08:25 AM Reporting Lab: [facility] [address] Performing Lab: [facility] [address] [place] [facility] CBC MCHC [MASS/VOLU ME] BY AUTOMATED COUNT 33.0 32.0 - 37.5 09/05 Specimen Type: BLOOD No comment entered. Ordering Provider: KATHERYN AZEVEDO Report Released Date/Time: Sep 02, 2022 08:25 AM Reporting Lab: [facility] [address] Performing Lab: [facility] [address] [place] [facility] CBC PLATELETS [#/VOLUME] IN BLOOD BY AUTOMATED COUNT 256 150 - 400 09/05 Specimen Type: BLOOD No comment entered. Ordering Provider: KATHERYN AZEVEDO Report Released Date/Time: Sep 02, 2022 08:25 AM Reporting Lab: [facility] [address] Performing Lab: [facility] [address] [place] [facility] CBC PLATELET MEAN VOLUME [ENTITIC VOLUME] IN BLOOD BY AUTOMATED COUNT 9.2 7.4 - 10.4 09/05 Specimen Type: BLOOD No comment entered. Ordering Provider: KATHERYN AZEVEDO Report Released Date/Time: Sep 02, 2022 08:25 AM Reporting Lab: [facility] [address] Performing Lab: [facility] [address] [place] [facility] CBC ERYTHROCYT E DISTRIBUTI ON WIDTH [RATIO] BY AUTOMATED COUNT 13.2 11.5 - 14.5 09/05 Specimen Type: BLOOD No comment entered. Ordering Provider: KATHERYN AZEVEDO Report Released Date/Time: Sep 02, 2022 08:25 AM Reporting Lab: [facility] [address] Performing Lab: [facility] [address] [place] [facility] BASIC METABOLI C PANEL+MG CREATININE [MASS/VOLU ME] IN SERUM OR PLASMA 1.2 0.7 - 1.2 08/28 Specimen Type: PLASMA No comment entered. Ordering Provider: ANITRA MCCLAIN Report Released Date/Time: Aug 28, 2022 12:41 PM Reporting Lab: [facility] [address] Performing Lab: [facility] [address] [place] [facility] BASIC METABOLI C PANEL+MG UREA NITROGEN [MASS/VOLU ME] IN SERUM OR PLASMA 18 8 - 26 08/28 Specimen Type: PLASMA No comment entered. Ordering Provider: ANITRA MCCLAIN Report Released Date/Time: Aug 28, 2022 12:41 PM Reporting Lab: [facility] [address] Performing Lab: [facility] [address] [place] [facility] BASIC METABOLI C PANEL+MG GLUCOSE [MASS/VOLU ME] IN SERUM OR PLASMA 150 70 - 100 08/28 H Specimen Type: PLASMA No comment entered. Ordering Provider: ANITRA MCCLAIN Report Released Date/Time: Aug 28, 2022 12:41 PM Reporting Lab: [facility] [address] Performing Lab: [facility] [address] [place] [facility] BASIC METABOLI C PANEL+MG SODIUM [MOLES/VOL UME] IN SERUM OR PLASMA 137 136 - 145 08/28 Specimen Type: PLASMA No comment entered. Ordering Provider: ANITRA MCCLAIN Report Released Date/Time: Aug 28, 2022 12:41 PM Reporting Lab: [facility] [address] Performing Lab: [facility] [address] [place] [facility] BASIC METABOLI C PANEL+MG POTASSIUM [MOLES/VOL UME] IN SERUM OR PLASMA 4.2 3.5 - 5.1 08/28 Specimen Type: PLASMA No comment entered. Ordering Provider: ANITRA MCCLAIN Report Released Date/Time: Aug 28, 2022 12:41 PM Reporting Lab: [facility] [address] Performing Lab: [facility] [address] [place] [facility] BASIC METABOLI C PANEL+MG CHLORIDE [MOLES/VOL UME] IN SERUM OR PLASMA 107 98 - 107 08/28 Specimen Type: PLASMA No comment entered. Ordering Provider: ANITRA MCCLAIN Report Released Date/Time: Aug 28, 2022 12:41 PM Reporting Lab: [facility] [address] Performing Lab: [facility] [address] [place] [facility] BASIC METABOLI C PANEL+MG CARBON DIOXIDE, TOTAL [MOLES/VOL UME] IN SERUM OR PLASMA 22 - 29 08/28 Specimen Type: PLASMA No comment entered. Ordering Provider: ANITRA MCCLAIN Report Released Date/Time: Aug 28, 2022 12:41 PM Reporting Lab: [facility] [address] Performing Lab: [facility] [address] [place] [facility] BASIC METABOLI C PANEL+MG CALCIUM [MASS/VOLU ME] IN SERUM OR PLASMA 8.9 8.4 - 10.2 08/28 Specimen Type: PLASMA No comment entered. Ordering Provider: ANITRA MCCLAIN Report Released Date/Time: Aug 28, 2022 12:41 PM Reporting Lab: [facility] [address] Performing Lab: [facility] [address] [place] [facility] BASIC METABOLI C PANEL+MG MAGNESIUM [MASS/VOLU ME] IN SERUM OR PLASMA 1.9 1.6 - 2.6 08/28 Specimen Type: PLASMA No comment entered. Ordering Provider: ANITRA MCCLAIN Report Released Date/Time: Aug 28, 2022 12:41 PM Reporting Lab: [facility] [address] Performing Lab: [facility] [address] [place] [facility] BASIC METABOLI C PANEL+MG ANION GAP IN SERUM OR PLASMA 8 5 - 15 08/28 Specimen Type: PLASMA No comment entered. Ordering Provider: ANITRA MCCLAIN Report Released Date/Time: Aug 28, 2022 12:41 PM Reporting Lab: [facility] [address] Performing Lab: [facility] [address] [place] [facility] BASIC METABOLI C PANEL+MG GLOMERULAR FILTRATION RATE/1.73 SQ M.PREDICTE D [VOLUME RATE/AREA] IN SERUM, PLASMA OR BLOOD BY CREATININE -BASED FORMULA (CKD-EPI) 62 60 08/28 Specimen Type: PLASMA No comment entered. Ordering Provider: ANITRA MCCLAIN Report Released Date/Time: Aug 28, 2022 12:41 PM Reporting Lab: [facility] [address] Performing Lab: [facility] [address] [place] [facility] CBC & DIFF LEUKOCYTES [#/VOLUME] IN BLOOD BY AUTOMATED COUNT 5.92 4.0 - 11.0 08/28 Specimen Type: BLOOD Comment: Automated Differentia l Performed Ordering Provider: ANITRA MCCLAIN Report Released Date/Time: Aug 28, 2022 12:41 PM Reporting Lab: [facility] [address] Performing Lab: [facility] [address] [place] [facility] CBC & DIFF ERYTHROCYT ES [#/VOLUME] IN BLOOD BY AUTOMATED COUNT 4.14 4.6 - 6.2 08/28 L Specimen Type: BLOOD Comment: Automated Differentia l Performed Ordering Provider: ANITRA MCCLAIN Report Released Date/Time: Aug 28, 2022 12:41 PM Reporting Lab: [facility] [address] Performing Lab: [facility] [address] [place] [facility] CBC & DIFF HEMOGLOBIN [MASS/VOLU ME] IN BLOOD 12.6 13.5 - 17.9 08/28 L Specimen Type: BLOOD Comment: Automated Differentia l Performed Ordering Provider: ANITRA MCCLAIN Report Released Date/Time: Aug 28, 2022 12:41 PM Reporting Lab: [facility] [address] Performing Lab: [facility] [address] [place] [facility] CBC & DIFF HEMATOCRIT [VOLUME FRACTION] OF BLOOD BY AUTOMATED COUNT 38.5 41 - 54 08/28 L Specimen Type: BLOOD Comment: Automated Differentia l Performed Ordering Provider: ANITRA MCCLAIN Report Released Date/Time: Aug 28, 2022 12:41 PM Reporting Lab: [facility] [address] Performing Lab: [facility] [address] [place] [facility] CBC & DIFF MCV [ENTITIC VOLUME] BY AUTOMATED COUNT 93.0 80 - 100 08/28 Specimen Type: BLOOD Comment: Automated Differentia l Performed Ordering Provider: ANITRA MCCLAIN Report Released Date/Time: Aug 28, 2022 12:41 PM Reporting Lab: [facility] [address] Performing Lab: [facility] [address] [place] [facility] CBC & DIFF MCH [ENTITIC MASS] BY AUTOMATED COUNT 30.4 27 - 33 08/28 Specimen Type: BLOOD Comment: Automated Differentia l Performed Ordering Provider: ANITRA MCCLAIN Report Released Date/Time: Aug 28, 2022 12:41 PM Reporting Lab: [facility] [address] Performing Lab: [facility] [address] [place] [facility] CBC & DIFF MCHC [MASS/VOLU ME] BY AUTOMATED COUNT 32.7 32.0 - 37.5 08/28 Specimen Type: BLOOD Comment: Automated Differentia l Performed Ordering Provider: ANITRA MCCLAIN Report Released Date/Time: Aug 28, 2022 12:41 PM Reporting Lab: [facility] [address] Performing Lab: [facility] [address] [place] [facility] CBC & DIFF PLATELETS [#/VOLUME] IN BLOOD BY AUTOMATED COUNT 168 150 - 400 08/28 Specimen Type: BLOOD Comment: Automated Differentia l Performed Ordering Provider: AINTRA MCCLAIN Report Released Date/Time: Aug 28, 2022 12:41 PM Reporting Lab: [facility] [address] Performing Lab: [facility] [address] [place] [facility] CBC & DIFF PLATELET MEAN VOLUME [ENTITIC VOLUME] IN BLOOD BY AUTOMATED COUNT 9.6 7.4 - 10.4 08/28 Specimen Type: BLOOD Comment: Automated Differentia l Performed Ordering Provider: ANITRA MCCLAIN Report Released Date/Time: Aug 28, 2022 12:41 PM Reporting Lab: [facility] [address] Performing Lab: [facility] [address] [place] [facility] CBC & DIFF NEUTROPHIL S/100 LEUKOCYTES IN BLOOD BY MANUAL COUNT 66.2 08/28 Specimen Type: BLOOD Comment: Automated Differentia l Performed Ordering Provider: ANITRA MCCLAIN Report Released Date/Time: Aug 28, 2022 12:41 PM Reporting Lab: [facility] [address] Performing Lab: [facility] [address] [place] [facility] CBC & DIFF LYMPHOCYTE S/100 LEUKOCYTES IN BLOOD BY MANUAL COUNT 19.3 08/28 Specimen Type: BLOOD Comment: Automated Differentia l Performed Ordering Provider: ANITRA MCCLAIN Report Released Date/Time: Aug 28, 2022 12:41 PM Reporting Lab: [facility] [address] Performing Lab: [facility] [address] [place] [facility] CBC & DIFF MONOCYTES/ 100 LEUKOCYTES IN BLOOD BY AUTOMATED COUNT 9.6 08/28 Specimen Type: BLOOD Comment: Automated Differentia l Performed Ordering Provider: ANITRA MCCLAIN Report Released Date/Time: Aug 28, 2022 12:41 PM Reporting Lab: [facility] [address] Performing Lab: [facility] [address] [place] [facility] CBC & DIFF EOSINOPHIL S/100 LEUKOCYTES IN BLOOD BY AUTOMATED COUNT 3.4 08/28 Specimen Type: BLOOD Comment: Automated Differentia l Performed Ordering Provider: ANITRA MCCLAIN Report Released Date/Time: Aug 28, 2022 12:41 PM Reporting Lab: [facility] [address] Performing Lab: [facility] [address] [place] [facility] CBC & DIFF BASOPHILS/ 100 LEUKOCYTES IN BLOOD BY MANUAL COUNT 1.2 08/28 Specimen Type: BLOOD Comment: Automated Differentia l Performed Ordering Provider: ANITRA MCCLAIN Report Released Date/Time: Aug 28, 2022 12:41 PM Reporting Lab: [facility] [address] Performing Lab: [facility] [address] [place] [facility] CBC & DIFF ERYTHROCYT E DISTRIBUTI ON WIDTH [RATIO] BY AUTOMATED COUNT 13.0 11.5 - 14.5 08/28 Specimen Type: BLOOD Comment: Automated Differentia l Performed Ordering Provider: ANITRA MCCLAIN Report Released Date/Time: Aug 28, 2022 12:41 PM Reporting Lab: [facility] [address] Performing Lab: [facility] [address] [place] [facility] CBC & DIFF LYMPHOCYTE S [#/VOLUME] IN BLOOD BY AUTOMATED COUNT 1.14 1.0 - 4.0 08/28 Specimen Type: BLOOD Comment: Automated Differentia l Performed Ordering Provider: ANITRA MCCLAIN Report Released Date/Time: Aug 28, 2022 12:41 PM Reporting Lab: [facility] [address] Performing Lab: [facility] [address] [place] [facility] CBC & DIFF MONOCYTES [#/VOLUME] IN BLOOD BY AUTOMATED COUNT 0.57 0.1 - 1.0 08/28 Specimen Type: BLOOD Comment: Automated Differentia l Performed Ordering Provider: ANITRA MCCLAIN Report Released Date/Time: Aug 28, 2022 12:41 PM Reporting Lab: [facility] [address] Performing Lab: [facility] [address] [place] [facility] CBC & DIFF NEUTROPHIL S [#/VOLUME] IN BLOOD BY AUTOMATED COUNT 3.92 2.0 - 7.7 08/28 Specimen Type: BLOOD Comment: Automated Differentia l Performed Ordering Provider: ANITRA MCCLAIN Report Released Date/Time: Aug 28, 2022 12:41 PM Reporting Lab: [facility] [address] Performing Lab: [facility] [address] [place] [facility] CBC & DIFF EOSINOPHIL S [#/VOLUME] IN BLOOD BY AUTOMATED COUNT 0.20 0 - 0.5 08/28 Specimen Type: BLOOD Comment: Automated Differentia l Performed Ordering Provider: ANITRA MCCLAIN Report Released Date/Time: Aug 28, 2022 12:41 PM Reporting Lab: [facility] [address] Performing Lab: [facility] [address] [place] [facility] CBC & DIFF BASOPHILS [#/VOLUME] IN BLOOD BY AUTOMATED COUNT 0.07 0 - 0.2 08/28 Specimen Type: BLOOD Comment: Automated Differentia l Performed Ordering Provider: ANITRA MCCLAIN Report Released Date/Time: Aug 28, 2022 12:41 PM Reporting Lab: [facility] [address] Performing Lab: [facility] [address] [place] [facility] CBC & DIFF IG(META,MY LUISA,PRO) 0.3 08/28 Specimen Type: BLOOD Comment: Automated Differentia l Performed Ordering Provider: ANITRA MCCLAIN Report Released Date/Time: Aug 28, 2022 12:41 PM Reporting Lab: [facility] [address] Performing Lab: [facility] [address] [place] [facility] CBC & DIFF IMMATURE GRANULOCYT ES [PRESENCE] IN BLOOD BY AUTOMATED COUNT 0.02 0 - 0.1 08/28 Specimen Type: BLOOD Comment: Automated Differentia l Performed Ordering Provider: ANITRA MCCLAIN Report Released Date/Time: Aug 28, 2022 12:41 PM Reporting Lab: [facility] [address] Performing Lab: [facility] [address] [place] [facility] URINALYS IS COLOR OF URINE COLORLES S 08/28 Specimen Type: URINE No comment entered. Ordering Provider: ANITRA MCCLAIN Report Released Date/Time: Aug 28, 2022 12:41 PM Reporting Lab: [facility] [address] Performing Lab: [facility] [address] [place] [facility] URINALYS IS SPECIFIC GRAVITY OF URINE 1.004 1.003 - 1.035 08/28 Specimen Type: URINE No comment entered. Ordering Provider: ANITRA MCCLAIN Report Released Date/Time: Aug 28, 2022 12:41 PM Reporting Lab: [facility] [address] Performing Lab: [facility] [address] [facility] URINALYS IS BILIRUBIN. TOTAL [PRESENCE] IN URINE BY TEST STRIP NEGATIVE 08/28 Specimen Type: URINE No comment entered. Ordering Provider: ANITRA MCCLAIN Report Released Date/Time: Aug 28, 2022 12:41 PM Reporting Lab: [facility] [address] Performing Lab: [facility] [address] [place] [facility] URINALYS IS KETONES [MASS/VOLU ME] IN URINE BY TEST STRIP NEGATIVE 08/28 Specimen Type: URINE No comment entered. Ordering Provider: ANITRA MCCLAIN Report Released Date/Time: Aug 28, 2022 12:41 PM Reporting Lab: [facility] [address] Performing Lab: [facility] [address] [place] [facility] URINALYS IS GLUCOSE [MASS/VOLU ME] IN URINE BY TEST STRIP NEGATIVE <30 - 30 08/28 Specimen Type: URINE No comment entered. Ordering Provider: ANITRA MCCLAIN Report Released Date/Time: Aug 28, 2022 12:41 PM Reporting Lab: [facility] [address] Performing Lab: [facility] [address] [place] [facility] URINALYS IS PROTEIN [MASS/VOLU ME] IN URINE BY TEST STRIP 50 <20 - 20 08/28 Specimen Type: URINE No comment entered. Ordering Provider: ANITRA MCCLAIN Report Released Date/Time: Aug 28, 2022 12:41 PM Reporting Lab: [facility] [address] Performing Lab: [facility] [address] [place] [facility] URINALYS IS PH OF URINE BY TEST STRIP 6.0 5.0 - 8.0 08/28 Specimen Type: URINE No comment entered. Ordering Provider: ANITRA MCCLAIN Report Released Date/Time: Aug 28, 2022 12:41 PM Reporting Lab: [facility] [address] Performing Lab: [facility] [address] [place] [facility] URINALYS IS LEUKOCYTES [#/AREA] IN URINE SEDIMENT BY MICROSCOPY HIGH POWER FIELD 7 0 - 7 08/28 Specimen Type: URINE No comment entered. Ordering Provider: ANITRA MCCLAIN Report Released Date/Time: Aug 28, 2022 12:41 PM Reporting Lab: [facility] [address] Performing Lab: [facility] [address] [place] [facility] URINALYS IS BACTERIA [PRESENCE] IN URINE SEDIMENT BY LIGHT MICROSCOPY FEW 08/28 Specimen Type: URINE No comment entered. Ordering Provider: ANITRA MCCLAIN Report Released Date/Time: Aug 28, 2022 12:41 PM Reporting Lab: [facility] [address] Performing Lab: [facility] [address] [place] [facility] URINALYS IS ERYTHROCYT ES [#/AREA] IN URINE SEDIMENT BY MICROSCOPY HIGH POWER FIELD 10 0 - 3 08/28 H Specimen Type: URINE No comment entered. Ordering Provider: ANITRA MCCLAIN Report Released Date/Time: Aug 28, 2022 12:41 PM Reporting Lab: [facility] [address] Performing Lab: [facility] [address] [place] [facility] URINALYS IS APPEARANCE OF URINE TURBID 08/28 Specimen Type: URINE No comment entered. Ordering Provider: ANITRA MCCLAIN Report Released Date/Time: Aug 28, 2022 12:41 PM Reporting Lab: [facility] [address] Performing Lab: [facility] [address] [place] [facility] URINALYS IS EPITHELIAL CELLS.SQUA MOUS [#/AREA] IN URINE SEDIMENT BY MICROSCOPY HIGH POWER FIELD <1 08/28 Specimen Type: URINE No comment entered. Ordering Provider: ANITRA MCCLAIN Report Released Date/Time: Aug 28, 2022 12:41 PM Reporting Lab: [facility] [id number] Performing Lab: [facility] [id number] [place] [facility] URINALYS IS HEMOGLOBIN [PRESENCE] IN URINE BY TEST STRIP 3+ 08/28 Specimen Type: URINE No comment entered. Ordering Provider: ANITRA MCCLAIN Report Released Date/Time: Aug 28, 2022 12:41 PM Reporting Lab: [facility] [id number] Performing Lab: [facility] [id number] [place] [facility] URINALYS IS NITRITE [PRESENCE] IN URINE BY TEST STRIP NEGATIVE 08/28 Specimen Type: URINE No comment entered. Ordering Provider: ANITRA MCCLAIN Report Released Date/Time: Aug 28, 2022 12:41 PM Reporting Lab: [facility] [id number] Performing Lab: [facility] [phone] [place] [facility] URINALYS IS LEUKOCYTE ESTERASE [PRESENCE] IN URINE BY TEST STRIP 75 08/28 Specimen Type: URINE No comment entered. Ordering Provider: ANITRA MCCLAIN Report Released Date/Time: Aug 28, 2022 12:41 PM Reporting Lab: [facility] [id number] Performing Lab: [facility] [id number] [place] [facility] Vital Signs Combined list of inpatient and outpatient Vital Signs from Department of Defense and Veterans [facility], ranging from 12 months to all on record, depending upon the facility. Vital Sign Value Date Comments Source Encounters Combined list of: 1) Encounters from Department of Veterans Affairs facilities going back up to thelast 18 months. 2) Encounters from the Department of Defense facilities going back up to 280 months. Location Location Details Encounter Type Encounter Number Reason For Visit Attending Provider ADM Date DC Date Status Disposition Source [facility] Outpatient Encounter [id number] 03/31 [facility] [place] [facility] Outpatient Encounter [id number] 04/07 [facility] [place] [facility] Outpatient Encounter [id number] 04/09 [facility] [place] [facility] Outpatient Encounter [id number] Diagnos is: ICD-10- CM 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
Patricio DIA 04/11 [facility] [place] [facility] Outpatient Encounter [id number] 04/11 [facility] [place] [facility] Outpatient Encounter [id number] 04/29 [facility] [place] [facility] Outpatient Encounter [id number] 05/22 [facility] [place] [facility] Outpatient Encounter [id number] SA RA Belen HIGGINS 06/10 [facility] [place] [facility] Outpatient Encounter [id number] 06/13 [facility] ADM SARSCV2 BVL 30MCG/.3ML B [id number] [id number] Diagnos is: ICD-10- CM Z23 Encount er for immuniz ation<b r/> NO HIGGINS 06/13 [facility] OFFICE O/P EST HI 40-54 MIN [id number] [id number] Diagnos is: ICD-10- CM 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
JENNIFER MCKEON 06/13 [facility] Outpatient Encounter [id number] 06/18 [facility] Outpatient Encounter [id number] Diagnos is: ICD-10- CM 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
Patricio DIA 06/19 [facility] Outpatient Encounter [id number] Diagnos is: ICD-10- CM E86.0 Dehydra tion
JJ,HIN A 07/01 [facility] Outpatient Encounter [id number] 07/17 [facility] Outpatient Encounter [id number] 07/17 [facility] REMOVE IMPACTED EAR WAX UNI [id number] Diagnos is: ICD-10- CM H90.3 Sensori neural hearing loss, bilater al
NO GALVIN A 07/21 [facility] [place] [facility] Outpatient Encounter [id number] Diagnos is: ICD-10- CM H53.9 Unspeci fied visual disturb ance
MAL JJ A 08/05 [facility] [place] [facility] Outpatient Encounter [id number] 08/07 [place] [facility] [place] [facility] Outpatient Encounter [id number] VERONICA PACKERI 08/12 [facility] [place] [facility] Outpatient Encounter [id number] 08/12 [facility] [place] [facility] Outpatient Encounter [id number] 08/18 [facility] [place] [facility] Outpatient Encounter [id number] SYSTEM,CIS -ARK 08/19 [facility] [place] [facility] Outpatient Encounter [id number] SYSTEM,[facility] -ARK 08/20 [facility] [place] [facility] OFF/OP CONSLTJ NEW/EST HI 55 [id number] [id number] Diagnos is: ICD-10- CM I65.21 Occlusi on and stenosi s of right carotid artery< br/> ANITRA MCCLAIN 08/20 [facility] [place] [facility] Inpatient Encounter [id number] Admit Reason: R CAROTID ARTERY STENOSI S
Paty MONTANO 08/20 [facility] RECHANNELI NG OF ARTERY [id number] Admit Reason: R CAROTID ARTERY STENOSI S
PILI MAURICE 08/20 [facility] [place] [facility] Inpatient Encounter [id number] 08/20 [place] [place] [facility] Inpatient Encounter [id number] OANH DAVIES [facility] 08/20 [place] [facility] [place] [facility] Inpatient Encounter [id number] VAUGHN JOYA 08/20 [place] [facility] [place] [facility] Inpatient Encounter [id number] [facility] DAV[facility] 08/20 [place] [facility] [place] [facility] Inpatient Encounter [id number] Flores ISLAS 08/20 [place] [facility] [place] [facility] Inpatient Encounter [id number] [facility] 08/21 [place] [facility] [place] [facility] Inpatient Encounter [id number] NOEMI SALCEDO 08/21 [place] [facility] [place] [facility] Inpatient Encounter [id number] [facility] 08/21 [place] [facility] [place] [facility] Inpatient Encounter [id number] Paty MONTANO 08/21 [place] [facility] [place] [facility] Inpatient Encounter [id number] NOEMI SALCEDO 08/21 [place] [facility] [place] [facility] Inpatient Encounter [id number] 08/22 [place] [facility] [place] [facility] Inpatient Encounter [id number] [facility] 08/22 [place] [facility] [place] [facility] Inpatient Encounter [id number] TERRI DENNEY 08/22 [place] [facility] OFF[facility] O/P EST MOD 30-39 MIN [id number] Diagnos is: ICD-10- CM I65.29 Occlusi on and stenosi s of 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 carotid artery< br/> TRILLOS,LI DA JANETH 08/22 [place] [facility] [place] [facility] INSERTION CATHETER ARTERY [id number] [id number] Diagnos is: ICD-10- CM I65.21 Occlusi on and stenosi s of right carotid artery< br/> TRILLOS,LI DA JANETH 08/22 [place] [facility] [place] [facility] Inpatient Encounter [id number] Diagnos is: ICD-10- CM I65.21 Occlusi on and stenosi s of right carotid artery< br/> ORECCHIA,P AUL KHALIF 08/22 [place] [facility] [place] [facility] Inpatient Encounter [id number] AMERICA AWAD 08/22 [place] [facility] [place] [facility] Inpatient Encounter [id number] [id number] MEGAN GRIGSBY 08/22 [place] [facility] [place] [facility] Inpatient Encounter [id number] [id number] SYSTEM,CIS -ARK 08/22 [facility] [place] [facility] Inpatient Encounter [id number] SYSTEM,[facility] -ARK 08/22 [place] [facility] [place] [facility] Inpatient Encounter [id number] JOSTIN DWYER 08/22 [place] [facility] [place] [facility] Inpatient Encounter [id number] YANELI CARABALLO RAMONA A 08/22 [place] [place] [facility] Inpatient Encounter [id number] SYSTEM[facility] -[facility] 08/23 [place] [place] [facility] Inpatient Encounter [id number] TERRI DENNEY 08/23 [place] [facility] [place] [facility] POSTOP FOLLOW-UP VISIT [id number] Diagnos is: ICD-10- CM Z48.89 Encount er for other specifi ed surgica l afterca re
Dana EVANS II 08/23 [place] [facility] [place] [facility] Inpatient Encounter [id number] JORDI SANCHEZ 08/23 [facility] [place] [facility] Inpatient Encounter [id number] Alessandro MONTANO A 08/23 [facility] [place] [facility] Inpatient Encounter [id number] SYSTEM,CIS -ARK 08/24 [facility] [place] [facility] Inpatient Encounter [id number] BANDAR JURADO 08/24 [place] [facility] [place] [facility] Inpatient Encounter [id number] JORDI SANCHEZ 08/24 [facility] [place] [facility] Inpatient Encounter [id number] Alessandro MONTANO A 08/24 [facility] [place] [facility] Inpatient Encounter [id number] SYSTEM,CIS -ARK 08/25 [place] [facility] [place] [facility] Inpatient Encounter [id number] [id number] JHONATANBANDAR HELLER M 08/25 [place] [facility] [place] [facility] Inpatient Encounter [id number] [id number] JOSEPATRICIA Curry W 08/25 [place] [place] [facility] Inpatient Encounter [id number] LINO CHAVIRA KIMBERLY M 08/25 [place] [facility] [place] [facility] Inpatient Encounter [id number] 08/25 [place] [facility] [place] [facility] Inpatient Encounter [id number] 08/26 [place] [facility] [place] [facility] Inpatient Encounter [id number] SYSTEM,CIS -ARK 08/26 [place] [facility] [place] [facility] Inpatient Encounter [id number] SURINDER MOISE I 08/26 [place] [facility] [place] [facility] Inpatient Encounter [id number] KAYLIN DORADO 08/26 [place] [facility] [place] [facility] Inpatient Encounter [id number] MICHELLE BRENNER 08/26 [place] [facility] [place] [facility] Inpatient Encounter [id number] [id number] SYSTEM,CIS -ARK 08/27 [place] [facility] [place] [facility] Inpatient Encounter [id number] CURTIS MOREIRA 08/27 [place] [facility] [place] [facility] Inpatient Encounter [id number] KAYLIN DORADO L 08/27 [place] [facility] [place] [facility] Inpatient Encounter [id number] Diagnos is: ICD-10- CM I10 Essenti al (primar y) hyperte nsion<b r/> MAL JJ A 08/27 [facility] [place] [facility] Inpatient Encounter [id number] SYSTEM,CIS -ARK 08/28 [facility] [place] [facility] Inpatient Encounter [id number] VERENICE HU Y 08/28 [facility] [place] [facility] Inpatient Encounter [id number] 08/28 [facility] [place] [facility] Inpatient Encounter [id number] 08/28 [facility] [place] [facility] Inpatient Encounter [id number] 08/29 [place] [facility] [place] [facility] Inpatient Encounter [id number] SYSTEM,CIS -ARK 08/29 [facility] [place] [facility] Inpatient Encounter [id number] 08/29 [place] [facility] [place] [facility] Inpatient Encounter [id number] 08/29 [facility] [place] [facility] PT EVAL LOW COMPLEX 20 MIN [id number] [id number] Diagnos is: ICD-10- CM R26.89 Other abnorma lities of gait and mobilit y
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
PERLA AZEVEDO 09/02 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
TAWNY PARR 09/02 [facility] Outpatient Encounter [id number] 09/05 [facility] US URINE CAPACITY MEASURE [id number] [id number] Diagnos is: ICD-10- CM R33.9 Retenti on of urine, 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
JERAD SINGH 09/05 [facility] OFF/OP EST MAY X REQ PHY/QHP [id number] [id number] JERAD SINGH 09/05 [facility] Outpatient Encounter [id number] 09/22 [place] [facility] HEARING AID CHECK BOTH EARS [id number] [id number] Diagnos is: ICD-10- CM H93.13 Tinnitu s, bilater al
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
ABDIAS,TRAC Y L 10/09 [facility] [place] [facility] Outpatient Encounter [id number] Diagnos is: ICD-10- CM I65.21 Occlusi on and stenosi s of right carotid artery< br/> Paty MONTANO 11/04 [facility] Outpatient Encounter [id number] 11/06 [facility] [place] [facility] Outpatient Encounter [id number] [id number] 11/07 [facility] [place] [facility] Outpatient Encounter [id number] [id number] ALEXANDRAELEN NDA J 11/07 [facility] [place] [facility] Outpatient Encounter [id number] 12/02 [facility] OFFICE O/P EST MOD 30-39 MIN [id number] [id number] Diagnos is: ICD-10- CM R31.9 Hematur ia, 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
AAMIR HUYNH 12/04 [facility] [place] [facility] Outpatient Encounter [id number] [id number] 12/04 [facility] [place] [facility] Outpatient Encounter [id number] 12/04 [place] [facility] [place] [facility] Outpatient Encounter [id number] [id number] ELEN MORRIS 12/05 [facility] Outpatient Encounter [id number] KAREN BROWN 12/05 [facility] HEARING AID CHECK BOTH EARS [id number] [id number] Diagnos is: ICD-10- CM Z46.1 Encount er for fitting and adjustm ent of hearing aid<br/ > NO GALVIN 12/17 [facility] Outpatient Encounter [id number] KARLA HALE 12/23 [facility] Outpatient Encounter [id number] 12/23 [facility] ELECTROCAR DIOGRAM COMPLETE [id number] [id number] Diagnos is: ICD-10- CM Z13.6 Encount er for screeni ng for cardiov ascular disorde rs
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
Kaye VILLEGAS 01/01 [facility] OFFICE O/P EST MOD 30-39 MIN [id number] [id number] Diagnos is: ICD-10- CM 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
ENDY HERZOG 01/20 [facility] Out[facility] Encounter [id number] [id number] 01/26 [facility] [place] [facility] Outpatient Encounter [id number] [id number] 02/04 [facility] [place] [facility] Outpatient Encounter [id number] [id number] 03/13 [facility] OFFICE O/P EST MOD 30-39 MIN [id number] [id number] Diagnos is: ICD-10- CM Z98.890 Other specifi ed postpro cedural states< br/> MAL JJ 03/13 [facility] IMMUNIZATI ON ADMIN 33722-4.61 [id number] Diagnos is: ICD-10- CM Z23 Encount er for immuniz ation<b r/> JORDANA SOLIMAN 03/13 [facility] Outpatient Encounter [id number] [id number] 03/17 [facility] PRO PHONE CALL 5-10 MIN [id number] [id number] Diagnos is: ICD-10- CM 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
ENDY HERZOG R L 03/17 [facility] Outpatient Encounter [id number] [id number] 03/27 [facility] HEARING AID FITTING/CH ECKING [id number] [id number] Diagnos is: ICD-10- CM Z46.1 Encount er for fitting and adjustm ent of hearing aid<br/ > CAMILLE BACON 03/27 [facility] Outpatient Encounter [id number] [id number] 03/30 [facility] Outpatient Encounter [id number] [id number] 04/01 [facility] [place] [facility] Outpatient Encounter [id number] 04/09 [place] [facility] [place] [facility] Outpatient Encounter [id number] 05/06 [place] [facility] [place] [facility] HEARING AID REPAIR/MOD IFYING [id number] Diagnos is: ICD-10- CM H90.5 Unspeci fied sensori neural hearing loss
EMILEE SHEFFIELD 05/19 [facility] [place] [facility] Outpatient Encounter [id number] 05/29 [facility] [place] [facility] Outpatient Encounter [id number] 07/08 [facility] [place] [facility] OFFICE O/P EST MOD 30 MIN [id number] Diagnos is: ICD-10- CM M25.569 Pain in 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 knee
MAL JJ 07/10 [facility] [place] [facility] Outpatient Encounter [id number] [id number] ALEXANDRA,ELEN NDA J 07/15 [facility] [place] [facility] Outpatient Encounter [id number] 07/17 [facility] [place] [facility] Outpatient Encounter [id number] ALEXANDRAELEN NDA J 07/22 [facility] [place] [facility] Outpatient Encounter [id number] 07/24 [facility] [place] [facility] Outpatient [facility]counter [id number] 08/04 [facility] [place] [facility] OFF/OP EST MAY X REQ PHY/QHP [id number] [id number] Diagnos is: ICD-10- CM H90.3 Sensori neural hearing loss, bilater al
REBECCA RICK M 08/20 [facility] ORTHC/PROS TC MGMT SBSQ ENC [id number] Diagnos is: ICD-10- CM M79.673 Pain in 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 foot
MARGI DARLING 08/20 [facility] Outpatient Encounter [id number] 09/06 [facility] Outpatient Encounter [id number] 09/06 [facility] Outpatient Encounter [id number] 09/07 [facility] Outpatient Encounter [id number] 09/09 [facility] Outpatient Encounter [id number] ALEXANDRA,ELEN NDA J 09/13 [facility] Outpatient Encounter [id number] 09/15 [facility] MTMS BY PHARM EST 15 MIN [id number] Diagnos is: ICD-10- CM 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
KEVEN DANIELLE M 09/16 [facility] Outpatient Encounter [id number] 09/23 [facility] Procedures Combined list of: 1) Procedures from [facility] Veterans Affairs facilities going back up to thelast 18 months, not all [place] non-surgical procedures are included; 2) All procedures from the Department of Defense facilities. Procedure Procedure Type Code Date Perfomer Comments Sourc e Right CEA RECHANNELING OF ARTERY 96802 3 OSIEL MONTANO RT-RIGHT SIDE [facility] Social History Combined list of available smoking, tobacco, and other social history from Department of Defense and Veterans Affairs facilities. Social History Type Response Date Comment Sourc e Tobacco smoking status NHIS VA-TOBACCO FORMER USER 07/10/2023 KASSANDRA CHINCHILLA [facility] History of tobacco use VA-TOBACCO QUIT 1 5 YRS OR MORE 07/10/2023 [facility] History of tobacco use VA-TOBACCO QUIT 1 5 YRS OR MORE 06/13/2022 [facility] History of tobacco use VA-TOBACCO FORMER USER 04/29/2021 [facility] History of tobacco use VA-TOBACCO NEVER USED 05/23/2019 [facility] History of tobacco use VA-TOBACCO FORMER USER 04/01/2018 [facility] History of tobacco use FORMER TOBACCO US ER 7Y OR GREATER 06/16/2017 [facility] History of tobacco use FORMER TOBACCO US ER 7Y OR GREATER 05/12/2016 [facility] History of tobacco use FORMER TOBACCO US ER 7Y OR GREATER 05/24/2015 [facility] History of tobacco use 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 Additional future care activities may be listed in the Assessment and Plan section. Date/Time Care Activity Care Activity Detail Facili ty 12/04/2023 AMBULATORY - NONE AMBULATORY - NONE [facility]/22/2023 AMBULATORY - SURGERY AMBULATORY - SURGERY [facility] 01/21/2024 AMBULATORY - MEDICINE AMBULATORY - MEDICI NE [facility] 01/21/2024 AMBULATORY - MEDICINE AMBULATORY - MEDICI NE [facility] 01/21/2024 AMBULATORY - MEDICINE AMBULATORY - MEDICI NE [facility] 09/09/2023 Laboratory - Chemistry Order BAS IC METABOLIC PANEL+MG PLASMA [facility] 09/09/2023 Laboratory - Chemistry Order HEMOGLOBIN A 1C BLOOD [facility] 09/09/2023 Laboratory - Chemistry Order LIP ID PANEL,NON-FASTING PLASMA [facility] 09/11/2023 Consult Order COMMUNITY CARE-OPHTHALMOLOGY Cons Photoengraver Apprentice's Choice [facility] Advance Directives List of completed, amended, or rescinded Advance Directives on record at Department of [facility] Affairs facilities. An actual copy of the Directive is not included. Date Advance Directive Provider Source 04/29/2016 CLINICAL WARNING SANGEETA ALVARES [facility] 2014 CLINICAL WARNING ISAAC DARBY [facility] 04/01/2005 ADVANCE DIRECTIVE VALERIE MILLAN [facility]
--- OUTSIDE RECORDS SUMMARY | 2023-09-28 10:50 | XMS_ITS | Encounter Summary ---
Author Name Department of Vetera Affairs Organization Department of Vetera ns Affairs Address [address] [place] [address] Support Name Relationship Address Phone TONY CULLEN Next of Kin [address] [place] [address] TONY CULLEN Emergency Contact [address] [facility] [address] ELIZABETH CULLEN Next of Kin [place]SE [facility] [address] [place] Insurance Providers: All historical and current Section Date Range: From patient's date of to the date document was created. This section includes the names of all active insurance providers for the patient. Insurance Provider Type of Coverage Plan Name Start of Policy Coverage End of Policy Coverage Group Number Member ID Insurance Provider's Telephone Number Policy Hernández's Name Patient's Relationship to Policy Hernández [facility] (WNR) MEDICARE ADVANTAGE MCR ([facility]) Jun 08, 2019 [id number] [phone] SUBHASH,BE RNARD PATIENT [facility] (WNR) MEDICARE ADVANTAGE MCR ([facility]) Aug 06, 2013 RIVAAB [id number] SUBHASH,BE RNARD PATIENT Selected Encounter This section includes the information on record at ID for the Encounter. Date/Time Encounter Type Encounter Description Reason Pro vider Source IHE Encounter Template Text not used by [facility] Advance Directives: All historical and current Section Date Range: From patient's date of to the date document was created. This section includes ALL of a patient's completed or amended VA Advance and Rescinded Directives. The entries below indicate that a directive exists for the patient, but an actual copy is not included with this document. The data comes from all ID facilities. Date Advance Directives Provider Source Apr 29, 2016 CLINICAL WARNING SANGEETA ALVARES [facility] 2014 CLINICAL WARNING ISAAC DARBY [facility] Apr 01, 2005 ADVANCE DIRECTIVE VALERIE MILLAN [facility]
--- OUTSIDE RECORDS SUMMARY | 2023-09-28 10:50 | XMS_ITS | Encounter Summary ---
Author Name Department of Vetera Affairs Organization Department of Vetera Affairs Address [address] [place] [address] Support Name Relationship Address Phone TONY CULLEN Next of Kin [address] [place] [address] DEMIAN CULLENIN Emergency Contact [address] [place] [address] BLANK CULLENAN Next of Kin JOSE [facility] [address] [place] Insurance Providers: All historical and current Section [...] Patient's Relationship to Policy Hernández [facility] ([facility]) MEDICARE ADVANTAGE MCR ([facility]) Jun 08, 2019 [id number] [phone] SUBHASH,BE RNARD PATIENT [facility] ([facility]) MEDICARE ADVANTAGE MCR ([facility]) Aug 06, 2013 RIVAAB [id number] [phone] SUBHASH,BE RNARD PATIENT Selected Encounter This section includes the information on record at [place] for the Encounter. Date/Time Encounter Type Encounter Description Reason Provider Source Sep 27, 2022 03:30 PM HEARING AID CHECK BOTH EARS AUDIOLOGY ICD-10-CM H93.13 Tinnitus, bilateral SUZANNE MURO Encounter Template Text not used by [place] Assessments - Encounter Diagnoses This section includes the primary and secondary diagnoses documented for the Encounter. Date/Time Primary/Secondary Diagnosis Diagnosis Name Provider Source Sep 27, 2022 05:38 PM PRIMARY Tinnitus, bilateral SUZANNE MURO [facility] Sep 27, 2022 05:38 PM SECONDARY Encounter for fitting and adjustment of hearing aid SUZANNE MURO [facility] Sep 27, 2022 05:38 PM SECONDARY Sensorineural hearing loss, bilateral SUZANNE MURO [facility] Plan of Treatment: Future Appointments (+ 6 months) and Future Tests (+/- 45 days) The Plan of Treatment section includes future care activities for the patient from all [facility]. This section includes future appointments and future orders which are active, pending or scheduled. Future Appointments This section includes appointments that were scheduled to occur 6 months from the date of the Encounter, up to a maximum of 20 appointments. The data comes from all [facility]. Appointment Date/Time Appointment Type Appointme nt Facility Name Sep 29, 2022 09:10 AM [facility] Oct 01, 2022 11:00 AM AM[facility]UL[facility]ORY - NONE [facility] November 04, 2022 10:30 AM AMBULATORY - SURG[place] [facility] Dec 04, 2022 09:20 AM AMBULATORY - [place] [facility] Dec 04, 2022 12:00 PM AMBULATORY - SURGERY [place] [facility] Dec 17, 2022 12:30 PM AMBULATORY - [place] [facility] Jan 01, 2023 12:15 PM [facility] Jan 01, 2023 12:30 PM [facility] Jan 01, 2023 02:00 PM AMBULATORY - [place]IC[place] [facility] Jan 21, 2023 10:16 AM AMBULATORY - NONE [place] [facility] Mar 11, 2023 01:05 PM AMBULATORY - NONE [place] [facility] Mar 13, 2023 01:45 PM AM[facility]UL[facility]ORY - [facility]IC[place] [facility] [place] [place] [facility] Mar 27, 2023 03:00 PM AMBULATORY - SURGERY [facility] Active, Pending, and Scheduled Orders This section includes a listing of several types of active, pending, and scheduled orders, including clinic medications orders, diagnostic test orders, procedure orders and consult orders; where the start date of the order is 45 days before the date of the Encounter or 45 days after the date of theEncounter. The data comes from all [facility] treatment facilities. Test Date/Time Test Type Test Details Facility Name Aug 20, 2022 03:42 PM Laboratory - Chemistry Order COVID-19 AND FLU/RSV DIAG PANEL(CEPHEID) NASOPHARYNGEAL SWAB ONCE [facility] Aug 20, 2022 03:42 PM Laboratory - Blood Bank Order TYPE & SCREEN - LAB BLOOD [facility] Aug 22, 2022 05:00 AM Laboratory - Blood Bank Order TYPE & SCREEN - LAB BLOOD [facility] Lab Results: +/- 30 days of the encounter This section includes the Chemistry and Hematology Lab Results on record with [place] for the patient. Radiology Reports and Pathology Reports are provided separately, in subsequent sections. Lab Results This section contains the Chemistry/Hematology Results that were resulted 30 days before or 30 daysafter the date of the Encounter. Date/Time Source Result Type Result - Unit Interpretation Reference Range Comment Sep 05, 2022 09:15 AM [facility] CBC Specimen Type: BLOOD No comment entered. Ordering Provider: ANALY AZEVEDO Report Released Date/Time: Sep 02, 2022 08:25 AM Reporting Lab: [facility] [id number] Performing Lab: [facility] [id number] WBC 5.91 4.0-11.0 RBC 4.55 L 4.6-6.2 HGB 13.9 13.5-17.9 HCT 42.1 41-54 MCV 92.5 80-100 MCH 30.5 27-33 MCHC 33.0 32.0-37.5 PLT 256 150-400 MPV 9.2 7.4-10.4 RDW 13.2 11.5-14.5 Social History: Smoking Status (Most current) and Tobacco Use (All prior to encounter date) This section includes the most current, and the historical, smoking and tobacco- related health factors from the [place] facility where the Encounter took place. Current Smoking Status This section includes the most current smoking, or tobacco-related health factor, from the [place] facility where the Encounter took place. Date/Time Current Smoking Status Comment Deandre nowak Jun 13, 2022 01:15 PM VA-TOBACCO FORMER USER [facility] Tobacco Use History This section includes a history of the smoking, or tobacco-related health factors, that were collected on or before the date of the Encounter. The data comes from the [place] facility where the Encounter took place. Date/Time Smoking Status/Tobacco Use Comment F acility Jun 13, 2022 01:15 PM VA-TOBACCO QUIT 15 YRS OR MORE [facility] Apr 29, 2021 12:45 PM VA-TOBACCO FORMER USER [facility] Apr 29, 2021 12:45 PM VA-TOBACCO QUIT 15 YRS OR MORE [facility] May 23, 2019 01:02 PM VA-TOBACCO NEVER USED [facility] Apr 01, 2018 12:53 PM VA-TOBACCO FORMER USER [facility] Apr 01, 2018 12:53 PM VA-TOBACCO QUIT 15 YRS OR MORE [facility] Jun 16, 2017 08:20 AM FORMER TOBACCO USER 7Y OR GREATE R [facility] May 12, 2016 11:04 AM FORMER TOBACCO USER 7Y OR GREATE R [facility] May 24, 2015 01:56 PM FORMER TOBACCO USER 7Y OR GREATE R [facility] Aug 09, 2014 09:40 AM LIFETIME NON-TOBACCO USER [facility] October 25, 2013 09:46 AM FORMER TOBACCO USER 7Y OR GREATE R [facility] Mar 17, 2007 02:35 PM FORMER TOBACCO USER 7Y OR GREATE R [facility] Mar 04, 2006 11:27 AM FORMER TOBACCO USE >1Y [facility] Advance Directives: All historical and current Section Date Range: From patient's date of to the date document was created. This section includes ALL of a patient's completed or amended [place] Advance and Rescinded Directives. The entries below indicate that a directive exists for the patient, but an actual copy is not included with this document. The data comes from all [facility]. Date Advance Directives Provider Source Apr 29, 2016 CLINICAL WARNING SANGEETA ALVARES [facility] 2014 CLINICAL WARNING ISAAC DARBY [facility] Apr 01, 2005 ADVANCE DIRECTIVE VALERIE MILLAN [facility] Radiology Reports: +/- 30 days of the encounter Radiology Reports For cases when an order for radiology services may have been completed prior to the date of the Encounter, the report list includes the Radiology Reports that were completed up to 30 days before dateof the Encounter. For cases when an order for radiology services may have been completed after the date of the Encounter, the report list also includes the Radiology Reports that were completed up to30 days after date of the Encounter. The data comes from all [place] treatment facilities. Date/Time Radiology Report Provider Source Oct 01, 2022 10:33 AM US CAROTID (BILATE RAL) (P): SABRINA CULLEN [id number] -[id number] M Exm Date: OCT 01, 2022@10:33 Req Phys: DANIEL MAURICE Vanesa Loc: [facility] nCino PHONE (Req'g Img Loc: Ultrasound Imaging Service: Unknown (Case [id number] COMPLETE) US CAROTID BILATERAL (US Detailed) CPT:00046 Reason for Study: s/p R CEA Clinical History: Please note that this study requires a 45min apt. time. Henderson IS NOT under investigation for COVID-19 or is COVID-19 negative S/P R CEA Responsible provider name and phone number to notify for critical findings if other than user placing the order and pager listed below: User placing orders pager: [phone] [facility]ATININE 1.2 (08/28/22) Report Status: Verified Date Reported: OCT 01, 2022 Date Verified: OCT 01, 2022 Garnishment Specialist E-Sig:/ES/NEWTON MAYNARD MD Report: Bilateral Carotid Artery Duplex Ultrasound History: Reason for Study: s/p R CEA Comparison Study: 08/18/2022, angiogram dated 08/21/2022. Findings: Right side: Plaque: Mild plaque is present at the carotid bifurcation. The lumen of the internal carotid artery was adequately visualized. Proximal CCA: 105 / 22 cm/sec Distal CCA: 132 / 25 cm/sec Carotid bifurcation: 112 / 28 cm/sec External CA: 116 / 18 cm/sec Proximal ICA: 127 / 22 cm/sec Mid ICA: 100 / 25 cm/sec Distal ICA: 103 / 27 cm/sec Vertebral Artery: antegrade Innominate artery: 90 cm/sec Subclavian artery: 140 cm/sec ICA/CCA ratio: 0.96 Left side: Plaque: Mild plaque is present at the carotid bifurcation. The lumen of the internal carotid artery was adequately visualized. Proximal CCA: 98 / 20 cm/sec Distal CCA: 100 / 21 cm/sec Carotid bifurcation: 142 / 36 cm/sec External CA: 185 / 26 cm/sec Proximal ICA: 137 / 36 cm/sec Mid ICA: 92 / 27 cm/sec Distal ICA: 102 / 33 cm/sec Vertebral Artery: antegrade Subclavian artery: 110 cm/sec ICA/CCA ratio: 1.37 Impression: 1. Right: Doppler velocity criteria correlate with a less than 50% stenosis of the internal carotid artery. The endarterectomy site is patent. 2. Left: Doppler velocity criteria correlate with a less than 50% stenosis of the internal carotid artery. 3. Note is made of a diffusely irregular heart rate. THE REPORT OF THE PATIENT'S FINDINGS ENDS HERE. Please note that as March 28, [address] [facility] Non-invasive V[facility] Lab has adopted the carotid artery stenosis Duplex criteria endorsed by Intersocietal Accreditation Commission(IAC). The changes in criteria may explain differences in the degree of stenosis when compared with prior exams. Primary Interpreting Staff: NEWTON MAYNARD MD, RADIOLOGIST (Garnishment Specialist) /NEWTON GONZALEZ [facility] Pathology Reports: +/- 30 days of the encounter Pathology Reports For cases when an order for pathology services may have been completed prior to the date of the Encounter, the report list includes the Pathology Reports that were completed up to 30 days before dateof the Encounter. For cases when an order for pathology services may have been completed after the date of the Encounter, the report list also includes the Pathology Reports that were completed up to30 days after date of the Encounter. The data comes from all [place] treatment facilities. Date/Time Pathology Report Provider Source Aug 28, 2022 01:20 PM LR MICROBIOLOGY RE PORT: Reporting Lab: [facility] [CLIA# [id number]] [place] [address] Accession [UID]: [id number] [[id number]] Received: Aug 28, 2022@13:36 Collection sample: URINE Collection date: Aug 28, 2022 13:20 Provider: ANITRA MCCLAIN Comment on specimen: RECEIVED IN URINE PRESERVATIVE TUBE Test(s) ordered: CULTURE & SUSCEPTIBILITY...... completed: Aug 29, 2022 * BACTERIOLOGY FINAL REPORT => Aug 29, 2022 11:05 TECH CODE: [id number] CULTURE RESULTS: NO GROWTH 24 HOURS Bacteriology Remark(s): THIS REPORT IS FINAL =--=--=--=--=--=--=--=--=--=--=--=- -=--=--=--=--=--=--=--=--=--=--=--= --=--=-- Performing Laboratory: Bacteriology Report Performed By: [facility] [CLIA# [id number]] [place] [address] [facility] Encounter Notes: All associated encounter notes This section contains the clinical notes associated to the Encounter. Date/Time Encounter Note(s) Provider Source Sep 27, 2022 04:05 PM AUDIOLOGY NOTE: LOCAL TITLE: AUDIOLOGY CLINIC NOTE STANDARD TITLE: AUDIOLOGY NOTE DATE OF NOTE: SEP 27, 2022@16:05 ENTRY DATE: SEP 27, 2022@16:05:33 AUTHOR: SUZANNE MURO COSIGNER: URGENCY: STATUS: COMPLETED DIAGNOSIS: Encounter for Fitting and Adjustment of Hearing Aid, Sensorineural loss, Tinnitus REASON FOR VISIT: Therapeutic - hearing aid fitting, conformity evaluation (real-ear measuress), orientation and counseling using a standard curriculum. Appointment Length: 60 minute appointment OTOSCOPY: Free of excessive cerumen, normal anatomy bilaterally HISTORY: is an experienced hearing aid user. Recommended keep his old hearing aids as a backup/spare as needed. Hearing aids right/left; Fit: Sep Make: Phonak Model: L90-RL Kristin Ser#: [id number] Radiopharmacist: 2P cShells Short Push = VC Paired to iPhone Added a 2nd program for speech in loud noise, vetera was encouraged to only use the automatic program and VC. back-Up Aids: Phonak [id number] Kristin Wu In [facility] CONFORMITY EVALUATION (VERIFICATION OF HEARING AID FUNCTION): Real Ear Aided Response (REAR) was measured using the Aurical system. According to the NAL-NL2 fitting method, the patient's hearing aid(s) is meeting target for soft, average, and loud speech. Loudness intolerance was measured using a 90 dB MPO tone sweep and the patient was able to tolerate the output of the hearing device(s). The fit was found to be satisfactory. ACTION: Hearing aid(s) are a good physical fit. Hearing aid(s) were programmed to prescriptive targets, which were derived from the Veterans hearing loss. Veterans subjective impressions were considered while adjusting the hearing aid(s). The frequency response is set at 100% of target gain. Feedback test was completed and feedback manager of operations was activated. Volume control enabled Synchronized Veterans cell phone was paired to the hearing aid(s). A practice phone call was completed to verify functionality. Education and counseling was completed regarding streaming capabilities. was counseled on the following: -Full-time hearing aid use and acclimating to amplification -Realistic expectations for hearing aid use -Appropriate communication strategies -Battery insertion and removal -Location and operation of all controls -Proper care and maintenance -Protecting hearing in high noise levels -[employer] [facility] and Call Center contact information and services, including the trial period and Quick Clinic hours reported good sound quality and equal balance between ears after adjustments were made. Henderson reported a comfortable fit. Henderson demonstrated understanding of the new aid(s) and was able to insert the hearing aid(s) appropriately, as well as manipulate the volume control and battery door. Prognosis for success is good given the Henderson's response to the hearing aid(s). Hearing aid(s) were issued and batteries and supplies were mailed. CAN INSTALL THE SEDLineAK JENS ON HIS OWN, IF HE WISHES TO USE IT. PLAN: will return to clinic FOR A 1 HOUR FITTING AND CHECK UP OF THE EXTRA EMILEE THAT HAND WASHER WILL ORDER. Tech Note: Hold Emilee on alphabet shelf for next appt. /luis eduardo/ Suzanne Muro Staff Sustainability Engineer Signed: 09/27/2022 17:39 SUZANNE MURO [facility]
--- OUTSIDE RECORDS SUMMARY | 2023-09-28 10:51 | XMS_ITS | Encounter Summary ---
Author Name [employer] [facility] [employer] Organization [facility] Address [address] [place] [address] Support Name Relationship Address Phone TONY CULLEN Next of Kin [address] [place] [address] DEMIAN CULLENIN Emergency Contact [address] [place] [address] BLANK CULLENAN Next of Kin JOSE [facility] [address] [place] Insurance Providers: All historical and current Section [...] Patient's Relationship to Policy Hernández [facility] ([facility]) MEDICARE ADVANTAGE MCR ([facility]) Jun 08, 2019 [id number] SUBHASH,BE RNARD PATIENT [facility] ([facility]) MEDICARE ADVANTAGE MCR ([facility]) Aug 06, 2013 [id number] SUBHASH,BE RNARD PATIENT Selected Encounter This section includes the information on record at [place] for the Encounter. Date/Time Encounter Type Encounter Description Reason Provider Source Mar 27, 2023 03:00 PM HEARING AID FITTING/CHECKIN G AUDIOLOGY ICD-10-CM Z46.1 Encounter for fitting and adjustment of hearing aid KEMAR BACON K [facility] Encounter Template Text not used by [facility] Assessments - Encounter Diagnoses This section includes the primary and secondary diagnoses documented for the Encounter. Date/Time Primary/Secondary Diagnosis Diagnosis Name Provider Source Mar 27, 2023 03:57 PM PRIMARY Encounter for fitting and adjustment of hearing aid ELLEN IRVIN [facility] Mar 27, 2023 03:57 PM SECONDARY Impacted cerumen, bilateral RUHR,ODALIS A [facility] Mar 27, 2023 03:57 PM SECONDARY Sensorineural hearing loss, bilateral ELLEN IRVIN [facility] Mar 27, 2023 03:57 PM SECONDARY Tinnitus, bilateral ELLEN IRVIN [facility] Plan of Treatment: Future Appointments (+ 6 months) and Future Tests (+/- 45 days) The Plan of Treatment section includes future care activities for the patient from all [facility]. This section includes future appointments and future orders which are active, pending or scheduled. Future Appointments This section includes appointments that were scheduled to occur 6 months from the date of the Encounter, up to a maximum of 20 appointments. The data comes from all [place] treatment facilities. Appointment Date/Time Appointment Type Appointme nt Facility Name Apr 22, 2023 01:00 PM [facility] May 19, 2023 10:15 AM AMBULATORY - SURGERY [facility] May 29, 2023 09:45 [facility] Jul 10, 2023 12:45 PM AMBULATORY - NONE [facility] Jul 10, 2023 01:45 PM AMBULATORY - MEDICINE [facility] Aug 10, 2023 12:45 PM AMBULATORY - NONE [facility] Aug 21, 2023 12:30 PM AMBULATORY - SURGERY [facility] Aug 21, 2023 02:30 PM AMBULATORY - NONE [facility] Lab Results: +/- 30 days of the encounter This section includes the Chemistry and Hematology Lab Results on record with [place] for the patient. Radiology Reports and Pathology Reports are provided separately, in subsequent sections. Lab Results This section contains the Chemistry/Hematology Results that were resulted 30 days before or 30 daysafter the date of the Encounter. Date/Time Source Result Type Result - Unit Interpretation Reference Range Comment Apr 22, 2023 12:27 PM [facility] AST/SGOT Specimen Type: PLASMA No comment entered. Ordering Provider: GABI AZEVEDO Report Released Date/Time: Mar 31, 2023 09:22 AM Reporting Lab: [facility] [id number] Performing Lab: [facility] [id number] AST/SGOT 16 <34 Apr 22, 2023 12:27 PM [facility] CREATININE(INCLUDES EGFR) Specimen Type: PLASMA No comment entered. Ordering Provider: GABI AZEVEDO Report Released Date/Time: Mar 31, 2023 09:22 AM Reporting Lab: [facility] [id number] Performing Lab: [facility] [id number] CREATININE 1.2 0.7-1.2 .CREAT EGFR(CKD-EPI ) 62 >60 Apr 22, 2023 12:27 PM [facility] ALT/SGPT Specimen Type: PLASMA No comment entered. Ordering Provider: GABI AZEVEDO Report Released Date/Time: Mar 31, 2023 09:22 AM Reporting Lab: [facility] [id number] Performing Lab: [facility] [id number] ALT/SGPT 20 <55 Apr 22, 2023 12:27 PM [facility] CBC Specimen Type: BLOOD No comment entered. Ordering Provider: GABI AZEVEDO Report Released Date/Time: Mar 31, 2023 09:22 AM Reporting Lab: [facility] [id number] Performing Lab: [facility] [id number] WBC 6.53 4.0-11.0 RBC 4.84 4.6-6.2 HGB 15.3 13.5-17.9 HCT 46.0 41-54 MCV 95.0 80-100 MCH 31.6 27-33 MCHC 33.3 32.0-37.5 PLT 166 150-400 MPV 10.0 7.4-10.4 RDW 13.1 11.5-14.5 IPF 2.2 0-10 Social History: Smoking Status (Most current) and Tobacco Use (All prior to encounter date) This section includes the most current, and the historical, smoking and tobacco- related health factors from the [facility] where the Encounter took place. Current Smoking Status This section includes the most current smoking, or tobacco-related health factor, from the [place] facility where the Encounter took place. Date/Time Current Smoking Status Comment Deandre itsergio Jun 13, 2022 01:15 PM VA-TOBACCO FORMER USER [facility] Tobacco Use History This section includes a history of the smoking, or tobacco-related health factors, that were collected on or before the date of the Encounter. The data comes from the [place] facility where the Encounter took place. Date/Time Smoking Status/Tobacco Use Comment F acility Jun 13, 2022 01:15 PM VA-TOBACCO QUIT 15 YRS OR MORE [facility] Apr 29, 2021 12:45 PM VA-TOBACCO FORMER USER [facility] Apr 29, 2021 12:45 PM VA-TOBACCO QUIT 15 YRS OR MORE [facility] May 23, 2019 01:02 PM VA-TOBACCO NEVER USED [facility] Apr 01, 2018 12:53 PM VA-TOBACCO FORMER USER [facility] Apr 01, 2018 12:53 PM VA-TOBACCO QUIT 15 YRS OR MORE [facility] Jun 16, 2017 08:20 AM FORMER TOBACCO USER 7Y OR GREATE R [facility] May 12, 2016 11:04 AM FORMER TOBACCO USER 7Y OR GREATE R [facility] May 24, 2015 01:56 PM FORMER TOBACCO USER 7Y OR GREATE R [facility] Aug 09, 2014 09:40 AM LIFETIME NON-TOBACCO USER [facility] October 25, 2013 09:46 AM FORMER TOBACCO USER 7Y OR GREATE R [facility] Mar 17, 2007 02:35 PM FORMER TOBACCO USER 7Y OR GREATE R [facility] Mar 04, 2006 11:27 AM FORMER TOBACCO USE >1Y [facility] Advance Directives: All historical and current Section Date Range: From patient's date of to the date document was created. This section includes ALL of a patient's completed or amended [place] Advance and Rescinded Directives. The entries below indicate that a directive exists for the patient, but an actual copy is not included with this document. The data comes from all [facility]. Date Advance Directives Provider Source Apr 29, 2016 CLINICAL WARNING SANGEETA ALVARES [facility] 2014 CLINICAL WARNING ISAAC DARBY [facility] Apr 01, 2005 ADVANCE DIRECTIVE VALERIE MILLAN [facility] Encounter Notes: All associated encounter notes This section contains the clinical notes associated to the Encounter. Date/Time Encounter Note(s) Provider Source Mar 27, 2023 05:25 PM AUDIOLOGY NOTE: LOCAL TITLE: AUDIOLOGY CLINIC NOTE STANDARD TITLE: AUDIOLOGY NOTE DATE OF NOTE: MAR 27, 2023@17:25 ENTRY DATE: MAR 27, 2023@17:25:45 AUTHOR: CHUCKY IRVIN EXP COSIGNER: URGENCY: STATUS: COMPLETED AUDIOLOGY CLINIC NOTE Has ADDENDA DIAGNOSIS: Sensorineural Hearing Loss, Tinnitus Reason for visit: Encounter for fitting adjustment Otoscopy: Free of excessive cerumen, normal anatomy bilaterally. History: Patient seen for a hearing aid service/hearing aid check. Hearing Aids (right/left): SONOVA PHONAK AUDEO L90-RL KATHYA L [id number] SONOVA PHONAK AUDEO L90-RL KATHYA R [id number] The following hearing aid problem/s were presented: RIGHT HEARING AID - clean & check, Phonak ayse LEFT HEARING AID - clean & check, Phonak ayse Action: Hearing aids were cleaned and checked. Listening check revealed good sound quality Both aids functioning properly post clean & check The following parts were replaced: wax guards Clean and checked the hearing aids, both aids functioning properly Reviewed features and benefits of phonak ayse and how to utilize Supplies provided to patient today: ordered wax guards was counseled on the cleaning, care and use of hearing aids. Plan: Patient will schedule an appointment to return to clinic as needed. Patient is in agreement with this plan. /luis eduardo/ CHUCKY IRVIN [facility] [employer]WYER Signed: 03/27/2023 17:32 03/30/2023 ADDENDUM STATUS: COMPLETED I have reviewed the audiological note and concur with the findings, procedures, and recommendations for the . The health aviation maintenance technician provided services to the during the time of the entire appointment. /es/ CAMILLE BACON PHOTO PRINT SPECIALIST Signed: 03/30/2023 10:27 CHUCKY IRVIN [facility] Mar 27, 2023 02:34 PM AUDIOLOGY NOTE: LOCAL TITLE: AUDIOLOGY CLINIC NURSING NOTE STANDARD TITLE: AUDIOLOGY NOTE DATE OF NOTE: MAR 27, 2023@14:34 ENTRY DATE: MAR 27, 2023@14:34:17 AUTHOR: ODALIS ARMENTA EXP COSIGNER: URGENCY: STATUS: COMPLETED Reason for visit: WILSON check Effusion (drainage) in ear canals: No Recent Otalgia (pain) in ear canals? No Puritis in ear canals: No History of Ear Surgery: No Currently wears hearing aids: Yes Cerumen Removed: Yes AU soft amounts Patient tolerated procedure. Nurse Patient Education: Participant(s) can repeat instructions to Continue with current ear hygiene Refrain from using cotton swabs in ears Use Mineral oil therapy, Patient continues to use monthly PLAN: Follow up in: PRN (as needed) /luis eduardo/ ODALIS ARMENTA LPN LICENSED PRACTICAL NURSE Signed: 03/27/2023 15:56 ODALIS ARMENTA [facility]
--- OUTSIDE RECORDS SUMMARY | 2023-09-28 10:51 | XMS_ITS | Encounter Summary ---
Author Name [facility] of [facility]a Affairs Organization [facility] Address [address] [place] [address] Support Name Relationship Address Phone TONY CULLEN Next of Kin [address] [place] [address] SUBHASH, TONY Emergency Contact [address] [facility] [address] [place], [place] [phone] SUBHASH, ELIZABETH Next of Kin JOSE [facility] [address] [place] Insurance Providers: All historical and current Section [...] Patient's Relationship to Policy Hernández U-CARE OF [facility] ([facility]) MEDICARE ADVANTAGE [facility] ([facility]) Jun 08, 2019 [id number] [phone] SUBHASH,BE RNARD PATIENT U-CARE OF [facility] ([facility]) MEDICARE ADVANTAGE [facility] ([facility]) Aug 06, 2013 [id number] SUBHASH,BE RNARD PATIENT Selected Encounter This section includes the information on record at [place] for the Encounter. Date/Time Encounter Type Encounter Description Reason Provider Source Mar 13, 2023 01:45 PM OFFICE O/P EST MOD 30-39 MIN PRIMARY CARE/MEDICINE ICD-10-CM Z98.890 Other specified postprocedural states DESTINI JJ Encounter Template Text not used by [place] Assessments - Encounter Diagnoses This section includes the primary and secondary diagnoses documented for the Encounter. Date/Time Primary/Secondary Diagnosis Diagnosis Name Provider Source Mar 13, 2023 02:36 PM PRIMARY Other specified postprocedural states DESTINI JJ [facility] Mar 13, 2023 02:36 PM SECONDARY Encounter for immunization LEWIS SARMIENTO [facility] Mar 13, 2023 02:36 PM SECONDARY Other constipation JJ,DESTINI [facility] Mar 13, 2023 02:36 PM SECONDARY Retinal hemorrhage, unspecified eye JJ,[facility] Mar 13, 2023 02:36 PM SECONDARY Ventricular premature depolarization [facility] Plan of Treatment: Future Appointments (+ 6 months) and Future Tests (+/- 45 days) The Plan of Treatment section includes future care activities for the [facility] This section includes future appointments and future orders which are active, pending or scheduled. Future Appointments This section includes appointments that were scheduled to occur 6 months from the date of the Encounter, up to a maximum of 20 appointments. The data comes from all [place] treatment facilities. Appointment Date/Time Appointment Type Appointme nt Facility Name Mar 27, 2023 03:00 PM AMBULATORY - SURGERY [facility] Apr 22, 2023 01:00 PM AMBULATORY - NONE [facility] May 19, 2023 10:15 AM AMBULATORY - SURGERY [facility] May 29, 2023 09:45 AM AMBULATORY - NONE [facility] Jul 10, 2023 12:45 PM [facility] Jul 10, 2023 01:45 PM AMBULATORY - MEDICINE [place] [place] [facility] Aug 10, 2023 12:45 PM AMBULATORY - NONE [facility] Aug 21, 2023 12:30 PM AMBULATORY - SURGERY [facility] Aug 21, 2023 02:30 PM [facility] Vital Signs: All taken on the encounter date This section contains inpatient and outpatient Vital Signs collected on the date of the Encounter. Date/Time Temperature Pulse Blood Pressure Respiratory Rate SP02 Pain Height Weight Body Mass Index Source Mar 13, 2023 12:55 PM 97.2 F 55 /min 126/69 mm[Hg] 16 /min 96 % 5 72 in 235 lb 32 [facility] Immunizations: All administered on the encounter date This section contains immunizations associated to the Encounter. Immunization Series Date Issued Reaction Comments INFLUENZA, HIGH-DOSE, QUADRIVALENT Mar 13, 2023 Social History: Smoking Status (Most current) and Tobacco Use (All prior to encounter date) This section includes the most current, and the historical, smoking and tobacco- related health factors from the [place] facility where the Encounter took place. Current Smoking Status This section includes the most current smoking, or tobacco-related health factor, from the [place] facility where the Encounter took place. Date/Time Current Smoking Status Comment Facil ity Jun 13, 2022 01:15 PM VA-TOBACCO FORMER USER [facility] Tobacco Use History This section includes a history of the smoking, or tobacco-related health factors, that were collected on or before the date of the Encounter. The data comes from the [place] facility where the Encounter took place. Date/Time Smoking Status/Tobacco Use Comment F acility Jun 13, 2022 01:15 PM VA-TOBACCO QUIT 15 YRS OR MORE [facility] Apr 29, 2021 12:45 PM VA-TOBACCO FORMER USER [facility] Apr 29, 2021 12:45 PM VA-TOBACCO QUIT 15 YRS OR MORE [facility] May 23, 2019 01:02 PM VA-TOBACCO NEVER USED [facility] Apr 01, 2018 12:53 PM VA-TOBACCO FORMER USER [facility] Apr 01, 2018 12:53 PM VA-TOBACCO QUIT 15 YRS OR MORE [facility] Jun 16, 2017 08:20 AM FORMER TOBACCO USER 7Y OR GREATE R [facility] May 12, 2016 11:04 AM FORMER TOBACCO USER 7Y OR GREATE R [facility] May 24, 2015 01:56 PM FORMER TOBACCO USER 7Y OR GREATE R [facility] Aug 09, 2014 09:40 AM LIFETIME NON-TOBACCO USER [facility] October 25, 2013 09:46 AM FORMER TOBACCO USER 7Y OR GREATE R [facility] Mar 17, 2007 02:35 PM FORMER TOBACCO USER 7Y OR GREATE R [facility] Mar 04, 2006 11:27 AM FORMER TOBACCO USE >1Y [facility] Advance Directives: All historical and current Section Date Range: From patient's date of to the date document was created. This section includes ALL of a patient's completed or amended [place] Advance and Rescinded Directives. The entries below indicate that a directive exists for the patient, but an actual copy is not included with this document. The data comes from all [place] facilities. Date Advance Directives Provider Source Apr 29, 2016 CLINICAL WARNING SANGEETA ALVARES [facility] 2014 CLINICAL WARNING MEHNAZISAAC Yonatan MONTALVO LYNN [facility] Apr 01, 2005 ADVANCE DIRECTIVE VALERIE MILLAN [facility] Encounter Notes: All associated encounter notes This section contains the clinical notes associated to the Encounter. Date/Time Encounter Note(s) Provider Source Mar 16, 2023 11:31 PM ADDENDUM: LOCAL TITLE: Addendum STANDARD TITLE: ADDENDUM DATE OF NOTE: MAR 16, 2023@23:31:10 ENTRY DATE: MAR 16, 2023@23:31:11 AUTHOR: DESTINI JJ EXP COSIGNER: URGENCY: STATUS: COMPLETED plz call vet and ask him to resume baby aspirin daily as recommended by vascular surgery. thanks! /luis eduardo/ Destini Jj MD Physician Signed: 03/16/2023 23:31 Receipt Acknowledged By: 03/17/2023 14:58 /es/ GAIL HERZOG RN RN PACT Branch Examiner --- Original Document --- 03/13/23 MEDICINE CLINIC NOTE: Nurse's notes reviewed from today. 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 # constipaiton: give metamucil and cont prn colace/ senna. # BPH: planning to get HoLep soon. # recent Rt CEA treatment. he stopped aSA but is taking statin. will discuss this with vascular. # left knee OA: he is planning to get replacement done in spring. cc referral done [facility] in jun 2023 # Lt big toe has perhaps beginnings of ingrown toe nail but is not really symptomatic at this time. he will get back if it does become painful. # h/o Rt CEA / bovine patch repair in 08/2022. will check if vascular wants to continue ASA. # HTN: stable. 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 has been following with EP. # CKD: Cr wnl. # Obstructive sleep apnea-continue CPAP HM: - CRC screen: does annual FIT testing. we can stop now. - etoh: once a month - tobacco: quit 50 yrs ago. - lives alone RTC in 6m with labs. HPI/ROS: - concerns about painful left big toe nail. feels it is ingrown. - has stopped taking ASA himself, doesn't feel that he needs it. - wants [facility] cc renewal done for jun 2023, he wants to discuss Left knee replacement - wants laxative. - concern for left big toe nail, has a 'feeling' there. no pain. asking if toe nail problem. Active problems - Computerized Problem List is the source for the followin. Hypertension, Nos 2. Osteoarthritis - S/P left total hip in 2005. 3. Hiatal hernia * 4. Obesity * 5. Gastroesophageal Reflux Disorder * 6. External thrombosed hemorrhoids 7. BPH w/Urin Obs & LUTS 8. Obstructive Sleep Apnea (Adult) (Pediatric) 9. Environmental Allergies 10. Hyperlipidemia 11. Gout * 12. Cataract nos 13. Constipation 14. Knee pain 15. 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 Retinal hemorrhage - right eye, jun 2022, sees local commercial green building architect Allergies: Patient has answered NKA EXAM: Last Vital Signs: BP: 126/69 (03/13/2023 12:55) Heart Rate: 55 (03/13/2023 12:55) Respirations: 16 (03/13/2023 12:55)/min Temperature: 97.2 F [36.2 C] (03/13/2023 12:55) Pain: 5 (03/13/2023 12:55) BMI: 31.9 O2 Sat: 96% (03/13/2023 12:55) General Appearance: NAD Mental Status:alert Neck:supple Chest/T Spine: Cardiac:[id number] JVP: Lungs:clear b/l Abdomen:soft NT Extremities: toes look good, mild erythema over the medial edge of left big toe nail, not tender, not clearly ingrown. Edema (*)None ()1+ ()2+ ()3+ ()4+ Pulses ()DYNAMICS AX CONSULTANT ()1+ ()2+ ()3+ ()4+ Gait: in WC Data/Labs: ( * )Patient was informed of available lab, imaging, and other study results associated with today's visit. Medication Reconciliation: Education Evaluations *Was medication education provided for NEW medications or CHANGES to medications? (including medication name, dose, route, reason for use, and potential side effects). Yes. Education on what medications? New medication(s) Comment: metamucil, vanicream Education provided to the following: Patient Type of education provided: Written materials Assessment of patient understanding of education content. Demonstrates TERATOGENIC MED & CONTRACEPTION REVIEW (Optional)... MEDICATION RECONCILIATION Active and Recently Outpatient Medications (including Supplies): Issue Date Status Last Fill Active Outpatient Medications Refills Expiration 1) APIXABAN 5MG TAB Qty: 180 for 90 days ACTIVE Issu:09-02-22 Sig: TAKE ONE TABLET BY MOUTH EVERY 12 Refills: 1 Last:03-09-23 HOURS TO TREAT AND/OR PREVENT BLOOD Expr:09-03-23 CLOTS 2) ASPIRIN 81MG EC TAB Qty: 120 for 90 ACTIVE Issu:08-28-22 days Sig: TAKE ONE TABLET BY MOUTH Refills: 1 Last:02-15-23 EVERY DAY TO PREVENT BLOOD CLOTS DO Expr:08-29-23 NOT CHEW 3) ATORVASTATIN CALCIUM 40MG TAB Qty: 90 ACTIVE (S) Issu:08-20-22 for 90 days Sig: TAKE ONE TABLET BY Refills: 0 Last:05-16-23 MOUTH AT BEDTIME FOR CHOLESTEROL Expr:08-21-23 4) DEPEND UNDERWEAR,MAXIMUM,MEN LARGE Qty: ACTIVE Issu:12-04-22 68 for 30 days Sig: USE 1 BRIEF Refills: 11 Last:12-04-22 DIRECTED Expr:12-05-23 5) DICLOFENAC NA 1% TOP GEL Qty: 200 for ACTIVE Issu:10-23-22 25 days Sig: APPLY 4 GRAMS TOPICALLY Refills: 3 Last:10-27-22 TWICE A DAY TO AFFECTED AREA FOR PAIN. Expr:10-24-23 *USE DOSE CARD IN BOX TO MEASURE DOSE. MAX 32 GRAMS PER DAY. 6) FINASTERIDE 5MG TAB Qty: 30 for 30 days ACTIVE Issu:12-04-22 Sig: TAKE ONE TABLET BY MOUTH EVERY Refills: 7 Last:03-24-23 DAY FOR PROSTATE Expr:12-05-23 7) HYDROCHLOROTHIAZIDE 12.5MG TAB Qty: 90 ACTIVE Issu:08-13-22 for 90 days Sig: TAKE ONE TABLET BY Refills: 1 Last:03-09-23 MOUTH EVERY DAY FOR BLOOD PRESSURE Expr:08-14-23 8) LISINOPRIL 40MG TAB Qty: 90 for 90 days ACTIVE Issu:12-11-22 Sig: TAKE ONE TABLET BY MOUTH EVERY Refills: 2 Last:03-17-23 DAY FOR HEART AND BLOOD PRESSURE Expr:12-12-23 9) METOPROLOL SUCCINATE 50MG SA TAB Qty: ACTIVE (S) Issu:12-10-22 45 for 90 days Sig: TAKE ONE-HALF Refills: 2 Last:05-17-23 TABLET BY MOUTH EVERY DAY Expr:12-11-23 10) TAMSULOSIN HCL 0.4MG CAP Qty: 30 for 30 ACTIVE Issu:03-10-23 days Sig: TAKE ONE CAPSULE BY MOUTH Refills: 0 Last:03-23-23 EVERY EVENING FOR PROSTATE Expr:04-09-23 Issue Date Status Last Fill Pending Outpatient Medications Refills Expiration 1) DOCUSATE NA 50MG/SENNOSIDES 8.6MG TAB PENDING Qty: 100 Sig: TAKE 1 TABLET BY MOUTH Refills: 0 TWICE A DAY NEEDED 2) PSYLLIUM ORAL PWD Qty: 390 Sig: TAKE 1 PENDING TABLESPOONFUL BY MOUTH EVERY DAY Refills: 0 3) VANICREAM TOP CREAM Qty: 454 Sig: PENDING APPLY THIN LAYER TOPICALLY TWICE A DAY Refills: 0 Issue Date Status Last Fill Inactive Outpatient Medications Refills Expiration 1) APIXABAN 5MG TAB Qty: 180 for 90 days DISCONTINUED Issu:02-20-22 Sig: TAKE ONE TABLET BY MOUTH EVERY 12 Refills: 1 Last:08-29-22 HOURS TO PREVENT BLOOD CLOTS Expr:02-21-23 2) CARBOXYMETHYLCELLULOSE NA 0.5% OPH SOLN Issu:06-17-22 Qty: 15 for 30 days Sig: INSTILL 1 Refills: 1 Last:05-24-22 DROP IN BOTH EYES TWICE A DAY FOR DRY Expr:11-23-22 EYES 3) DICLOFENAC NA 1% TOP GEL Qty: 200 for DISCONTINUED Issu:03-31-22 25 days Sig: APPLY 4 GRAMS TOPICALLY Refills: 0 Last:06-06-22 TWICE A DAY TO AFFECTED AREA FOR PAIN. Expr:04-01-23 *USE DOSE CARD IN BOX TO MEASURE DOSE. MAX 32 GRAMS PER DAY. 4) DOCUSATE NA 50MG/SENNOSIDES 8.6MG TAB Issu:12-11-22 Qty: 100 for 50 days Sig: TAKE 1 Refills: 0 Last:12-22-22 TABLET BY MOUTH TWICE A DAY NEEDED Expr:01-30-23 FOR CONSTIPATION 5) DOCUSATE NA 50MG/SENNOSIDES 8.6MG TAB DISCONTINUED Issu:11-11-22 Qty: 100 for 50 days Sig: TAKE 1 Refills: 0 Last:11-12-22 TABLET BY MOUTH TWICE A DAY NEEDED Expr:12-31-22 FOR CONSTIPATION 6) HYDROCHLOROTHIAZIDE 25MG TAB Qty: 45 DISCONTINUED Issu:01-27-22 for 90 days Sig: TAKE ONE-HALF TABLET Refills: 2 Last:04-19-22 BY MOUTH EVERY DAY FOR BLOOD PRESSURE Expr:01-28-23 7) LIDOCAINE 5% PATCH Qty: 30 for 30 days Issu:02-03-23 Sig: APPLY 1 PATCH TOPICALLY EVERY DAY Refills: 0 Last:02-04-23 NEEDED FOR PAIN Expr:03-05-23 8) LIDOCAINE 5% PATCH Qty: 30 for 30 days DISCONTINUED Issu:12-30-22 Sig: APPLY 1 PATCH TOPICALLY EVERY DAY Refills: 0 Last:12-31-22 NEEDED FOR PAIN Expr:01-29-23 9) MAGNESIUM OXIDE 400MG TAB Qty: 120 for Issu:11-20-21 90 days Sig: TAKE ONE TABLET BY MOUTH Refills: 3 Last:11-21-21 EVERY MORNING Expr:11-21-22 10) METOPROLOL SUCCINATE 50MG SA TAB Qty: DISCONTINUED Issu:01-27-22 45 for 90 days Sig: TAKE ONE-HALF Refills: 0 Last:12-08-22 TABLET BY MOUTH EVERY DAY Expr:01-28-23 11) TAMSULOSIN HCL 0.4MG CAP Qty: 30 for 30 DISCONTINUED Issu:02-02-23 days Sig: TAKE ONE CAPSULE BY MOUTH Refills: 0 Last:03-03-23 EVERY EVENING FOR PROSTATE Expr:03-04-23 24 Total Medications Colonoscopy GAP Reminder: Recommendations are needed in the clinical reminder system following the patient's most recent colorectal cancer screening/surveillance test (Colonoscopy, Sigmoidoscopy or CT Colonography) Colorectal cancer screening/surveillance will be stopped. Reason: age > 75 COVID-19 Immunization: - co-sign vascular as vet opted to stop taking ASA himself and asking if it still needed? considering h/o CEA patch repair earlier this year. he takes apixiban chronically for h/o DVT. /luis eduardo/ Destini Jj MD Physician Signed: 03/13/2023 14:36 Receipt Acknowledged By: 03/14/2023 11:30 /luis eduardo/ OSIEL MONTANO MD STAFF VASCULAR SURGEON 03/14/2023 ADDENDUM STATUS: COMPLETED If the patient is not having any side effects or does not have any specific contraindications we generally continue aspirin, 81 mg enteric-coated daily. If there are contraindications then it can be discontinued. It is not uncommon for us(vascular) to continue enteric-coated baby aspirin along with apixaban as long as there are no problems associated with it. If there are problems or concerns can be discontinued. /luis eduardo/ OSIEL MONTANO MD STAFF VASCULAR SURGEON Signed: 03/14/2023 11:38 Receipt Acknowledged By: 03/16/2023 23:30 /luis eduardo/ Destini Jj MD Physician 03/17/2023 ADDENDUM STATUS: COMPLETED Shuttle Driver called and left detailed message on ID VM and asked Pt to resume his baby asprin daily per vascular and to call the CC with any questions. Shuttle Driver gave Pt the phone number to the call center. /luis eduardo/ GAIL HERZOG RN RN PACT Branch Examiner Signed: 03/17/2023 15:02 DESTINI JJ [facility] Mar 14, 2023 11:35 AM ADDENDUM: LOCAL TITLE: Addendum STANDARD TITLE: ADDENDUM DATE OF NOTE: MAR 14, 2023@11:35:58 ENTRY DATE: MAR 14, 2023@11:35:59 AUTHOR: OSIEL MONTANO EXP COSIGNER: URGENCY: STATUS: COMPLETED SUBJECT: Continuation of aspirin issue. If the patient is not having any side effects or does not have any specific contraindications we generally continue aspirin, 81 mg enteric-coated daily. If there are contraindications then it can be discontinued. It is not uncommon for us(vascular) to continue enteric-coated baby aspirin along with apixaban as long as there are no problems associated with it. If there are problems or concerns can be discontinued. /luis eduardo/ OSIEL MONTANO MD STAFF VASCULAR SURGEON Signed: 03/14/2023 11:38 Receipt Acknowledged By: 03/16/2023 23:30 /luis eduardo/ Destini Jj MD Physician --- Original Document --- 03/13/23 MEDICINE CLINIC NOTE: Nurse's notes reviewed from today. 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 # constipaiton: give metamucil and cont prn colace/ senna. # BPH: planning to get HoLep soon. # recent Rt CEA treatment. he stopped aSA but is taking statin. will discuss this with vascular. # left knee OA: he is planning to get replacement done in spring. cc referral done [facility] in jun 2023 # Lt big toe has perhaps beginnings of ingrown toe nail but is not really symptomatic at this time. he will get back if it does become painful. # h/o Rt CEA / bovine patch repair in 08/2022. will check if vascular wants to continue ASA. # HTN: stable. 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 has been following with EP. # CKD: Cr wnl. # Obstructive sleep apnea-continue CPAP HM: - CRC screen: does annual FIT testing. we can stop now. - etoh: once a month - tobacco: quit 50 yrs ago. - lives alone RTC in 6m with labs. HPI/ROS: - concerns about painful left big toe nail. feels it is ingrown. - has stopped taking ASA himself, doesn't feel that he needs it. - wants [facility] cc renewal done for jun 2023, he wants to discuss Left knee replacement - wants laxative. - concern for left big toe nail, has a 'feeling' there. no pain. asking if toe nail problem. Active problems - Computerized Problem List is the source for the followin. Hypertension, Nos 2. Osteoarthritis - S/P left total hip in 2005. 3. Hiatal hernia * 4. Obesity * 5. Gastroesophageal Reflux Disorder * 6. External thrombosed hemorrhoids 7. BPH w/Urin Obs & LUTS 8. Obstructive Sleep Apnea (Adult) (Pediatric) 9. Environmental Allergies 10. Hyperlipidemia 11. Gout * 12. Cataract nos 13. Constipation 14. Knee pain 15. 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 Retinal hemorrhage - right eye, jun 2022, sees local commercial green building architect Allergies: Patient has answered NKA EXAM: Last Vital Signs: BP: 126/69 (03/13/2023 12:55) Heart Rate: 55 (03/13/2023 12:55) Respirations: 16 (03/13/2023 12:55)/min Temperature: 97.2 F [36.2 C] (03/13/2023 12:55) Pain: 5 (03/13/2023 12:55) BMI: 31.9 O2 Sat: 96% (03/13/2023 12:55) General Appearance: NAD Mental Status:alert Neck:supple Chest/T Spine: Cardiac:[id number] JVP: Lungs:clear b/l Abdomen:soft NT Extremities: toes look good, mild erythema over the medial edge of left big toe nail, not tender, not clearly ingrown. Edema (*)None ()1+ ()2+ ()3+ ()4+ Pulses ()DYNAMICS AX CONSULTANT ()1+ ()2+ ()3+ ()4+ Gait: in WC Data/Labs: ( * )Patient was informed of available lab, imaging, and other study results associated with today's visit. Medication Reconciliation: Education Evaluations *Was medication education provided for NEW medications or CHANGES to medications? (including medication name, dose, route, reason for use, and potential side effects). Yes. Education on what medications? New medication(s) Comment: metamucil, vanicream Education provided to the following: Patient Type of education provided: Written materials Assessment of patient understanding of education content. Demonstrates TERATOGENIC MED & CONTRACEPTION REVIEW (Optional)... MEDICATION RECONCILIATION Active and Recently Outpatient Medications (including Supplies): Issue Date Status Last Fill Active Outpatient Medications Refills Expiration 1) APIXABAN 5MG TAB Qty: 180 for 90 days ACTIVE Issu:09-02-22 Sig: TAKE ONE TABLET BY MOUTH EVERY 12 Refills: 1 Last:03-09-23 HOURS TO TREAT AND/OR PREVENT BLOOD Expr:09-03-23 CLOTS 2) ASPIRIN 81MG EC TAB Qty: 120 for 90 ACTIVE Issu:08-28-22 days Sig: TAKE ONE TABLET BY MOUTH Refills: 1 Last:02-15-23 EVERY DAY TO PREVENT BLOOD CLOTS DO Expr:08-29-23 NOT CHEW 3) ATORVASTATIN CALCIUM 40MG TAB Qty: 90 ACTIVE (S) Issu:08-20-22 for 90 days Sig: TAKE ONE TABLET BY Refills: 0 Last:05-16-23 MOUTH AT BEDTIME FOR CHOLESTEROL Expr:08-21-23 4) DEPEND UNDERWEAR,MAXIMUM,MEN LARGE Qty: ACTIVE Issu:12-04-22 68 for 30 days Sig: USE 1 BRIEF Refills: 11 Last:12-04-22 DIRECTED Expr:12-05-23 5) DICLOFENAC NA 1% TOP GEL Qty: 200 for ACTIVE Issu:10-23-22 25 days Sig: APPLY 4 GRAMS TOPICALLY Refills: 3 Last:10-27-22 TWICE A DAY TO AFFECTED AREA FOR PAIN. Expr:10-24-23 *USE DOSE CARD IN BOX TO MEASURE DOSE. MAX 32 GRAMS PER DAY. 6) FINASTERIDE 5MG TAB Qty: 30 for 30 days ACTIVE Issu:12-04-22 Sig: TAKE ONE TABLET BY MOUTH EVERY Refills: 7 Last:03-24-23 DAY FOR PROSTATE Expr:12-05-23 7) HYDROCHLOROTHIAZIDE 12.5MG TAB Qty: 90 ACTIVE Issu:08-13-22 for 90 days Sig: TAKE ONE TABLET BY Refills: 1 Last:03-09-23 MOUTH EVERY DAY FOR BLOOD PRESSURE Expr:08-14-23 8) LISINOPRIL 40MG TAB Qty: 90 for 90 days ACTIVE Issu:12-11-22 Sig: TAKE ONE TABLET BY MOUTH EVERY Refills: 2 Last:03-17-23 DAY FOR HEART AND BLOOD PRESSURE Expr:12-12-23 9) METOPROLOL SUCCINATE 50MG SA TAB Qty: ACTIVE (S) Issu:12-10-22 45 for 90 days Sig: TAKE ONE-HALF Refills: 2 Last:05-17-23 TABLET BY MOUTH EVERY DAY Expr:12-11-23 10) TAMSULOSIN HCL 0.4MG CAP Qty: 30 for 30 ACTIVE Issu:03-10-23 days Sig: TAKE ONE CAPSULE BY MOUTH Refills: 0 Last:03-23-23 EVERY EVENING FOR PROSTATE Expr:04-09-23 Issue Date Status Last Fill Pending Outpatient Medications Refills Expiration 1) DOCUSATE NA 50MG/SENNOSIDES 8.6MG TAB PENDING Qty: 100 Sig: TAKE 1 TABLET BY MOUTH Refills: 0 TWICE A DAY NEEDED 2) PSYLLIUM ORAL PWD Qty: 390 Sig: TAKE 1 PENDING TABLESPOONFUL BY MOUTH EVERY DAY Refills: 0 3) VANICREAM TOP CREAM Qty: 454 Sig: PENDING APPLY THIN LAYER TOPICALLY TWICE A DAY Refills: 0 Issue Date Status Last Fill Inactive Outpatient Medications Refills Expiration 1) APIXABAN 5MG TAB Qty: 180 for 90 days DISCONTINUED Issu:02-20-22 Sig: TAKE ONE TABLET BY MOUTH EVERY 12 Refills: 1 Last:08-29-22 HOURS TO PREVENT BLOOD CLOTS Expr:02-21-23 2) CARBOXYMETHYLCELLULOSE NA 0.5% OPH SOLN Issu:11-22-21 Qty: 15 for 30 days Sig: INSTILL 1 Refills: 1 Last:05-24-22 DROP IN BOTH EYES TWICE A DAY FOR DRY Expr:11-23-22 EYES 3) DICLOFENAC NA 1% TOP GEL Qty: 200 for DISCONTINUED Issu:03-31-22 25 days Sig: APPLY 4 GRAMS TOPICALLY Refills: 0 Last:06-06-22 TWICE A DAY TO AFFECTED AREA FOR PAIN. Expr:04-01-23 *USE DOSE CARD IN BOX TO MEASURE DOSE. MAX 32 GRAMS PER DAY. 4) DOCUSATE NA 50MG/SENNOSIDES 8.6MG TAB Issu:12-11-22 Qty: 100 for 50 days Sig: TAKE 1 Refills: 0 Last:12-22-22 TABLET BY MOUTH TWICE A DAY NEEDED Expr:01-30-23 FOR CONSTIPATION 5) DOCUSATE NA 50MG/SENNOSIDES 8.6MG TAB DISCONTINUED Issu:11-11-22 Qty: 100 for 50 days Sig: TAKE 1 Refills: 0 Last:11-12-22 TABLET BY MOUTH TWICE A DAY NEEDED Expr:12-31-22 FOR CONSTIPATION 6) HYDROCHLOROTHIAZIDE 25MG TAB Qty: 45 DISCONTINUED Issu:01-27-22 for 90 days Sig: TAKE ONE-HALF TABLET Refills: 2 Last:04-19-22 BY MOUTH EVERY DAY FOR BLOOD PRESSURE Expr:01-28-23 7) LIDOCAINE 5% PATCH Qty: 30 for 30 days Issu:02-03-23 Sig: APPLY 1 PATCH TOPICALLY EVERY DAY Refills: 0 Last:02-04-23 NEEDED FOR PAIN Expr:03-05-23 8) LIDOCAINE 5% PATCH Qty: 30 for 30 days DISCONTINUED Issu:12-30-22 Sig: APPLY 1 PATCH TOPICALLY EVERY DAY Refills: 0 Last:12-31-22 NEEDED FOR PAIN Expr:01-29-23 9) MAGNESIUM OXIDE 400MG TAB Qty: 120 for Issu:11-20-21 90 days Sig: TAKE ONE TABLET BY MOUTH Refills: 3 Last:11-21-21 EVERY MORNING Expr:11-21-22 10) METOPROLOL SUCCINATE 50MG SA TAB Qty: DISCONTINUED Issu:01-27-22 45 for 90 days Sig: TAKE ONE-HALF Refills: 0 Last:12-08-22 TABLET BY MOUTH EVERY DAY Expr:01-28-23 11) TAMSULOSIN HCL 0.4MG CAP Qty: 30 for 30 DISCONTINUED Issu:02-02-23 days Sig: TAKE ONE CAPSULE BY MOUTH Refills: 0 Last:03-03-23 EVERY EVENING FOR PROSTATE Expr:03-04-23 24 Total Medications Colonoscopy GAP Reminder: Recommendations are needed in the clinical reminder system following the patient's most recent colorectal cancer screening/surveillance test (Colonoscopy, Sigmoidoscopy or CT Colonography) Colorectal cancer screening/surveillance will be stopped. Reason: age > 75 COVID-19 Immunization: - co-sign vascular as vet opted to stop taking ASA himself and asking if it still needed? considering h/o CEA patch repair earlier this year. he takes apixiban chronically for h/o DVT. /luis eduardo/ Destini Jj MD Physician Signed: 03/13/2023 14:36 Receipt Acknowledged By: 03/14/2023 11:30 /luis eduardo/ OSIEL MONTANO MD STAFF VASCULAR SURGEON OSIEL MONTANO [facility] Mar 13, 2023 01:01 PM INTERNAL MEDICINE OUTPATIENT NOTE: LOCAL TITLE: MEDICINE CLINIC NURSING NOTE STANDARD TITLE: INTERNAL MEDICINE OUTPATIENT NOTE DATE OF NOTE: MAR 13, 2023@13:01 ENTRY DATE: MAR 13, 2023@13:01:37 AUTHOR: LEWIS SARMIENTO EXP COSIGNER: URGENCY: STATUS: COMPLETED TYPE OF VISIT: Appointment Check In Type of appointment: In-person appointment REASON FOR VISIT: f/up ALLERGIES: Patient has answered NKA VITAL SIGNS: Blood Pressure: 126/69 (03/13/2023 12:55) Pulse: 55 (03/13/2023 12:55) Respiration: 16 (03/13/2023 12:55) Temperature: 97.2 F [36.2 C] (03/13/2023 12:55) Weight: 235 lb [106.59 kg] (03/13/2023 12:55) Height: 72 in [182.9 cm] (03/13/2023 12:55) BMI: 31.9 O2 Sat: 96% (03/13/2023 12:55) Pain: 5 (03/13/2023 12:55) PAIN SCREEN: Patient is having significant pain that they would like to talk to their provider about today. Old (Chronic) (began more than 6 months ago) Patient states their average pain this past week is 5 Patient states the average number on how the chronic pain affects their enjoyment of life the past week is 2 Patient states during the past week the average number on how the pain has interfered with their general activity is 2 MEDICATION Over the Counter/Herbal Medications: The patient denies taking any outside medications or herbals. Influenza Immunization: The patient was given the influenza VIS which lists the benefits and side effects of the vaccine and which reviews the risks of not receiving the flu vaccine. The VIS was reviewed with the patient and they were given an opportunity to ask questions. The patient was provided education on how to decrease the risk of influenza infection including social distancing and use of good hand hygiene. The patient denied any prior severe reaction to the flu vaccine or its components. The patient gave verbal consent to receive the vaccine. Influenza, High Dose, Quadrivalent (Fluzone - syringe) Administered: INFLUENZA, HIGH-DOSE, QUADRIVALENT Date Administered: Mar 13, 2023 13:02 Magistrate Judge: [employer] Lot: [id number] Exp Date: Dec 06, [address] [facility]: [phone] Admin Route/Site: INTRAMUSCULAR/LEFT DELTOID Dosage: 0.7mL Vaccine Information Statement(s): INFLUENZA(FLU) VACC(INACTIVATED OR RECOMBINANT)VIS Jan 11, 2021 (UZBEK) Order By: Policy Administered By: Lewis Sarmiento /luis eduardo/ LEWIS SARMIENTO LPN Signed: 03/13/2023 13:02 LEWIS SARMIENTO [facility] Mar 13, 2023 12:45 PM ADVANCE DIRECTIVE: LOCAL TITLE: AD NOTIFICATION AND SCREENING STANDARD TITLE: ADVANCE DIRECTIVE DATE OF NOTE: MAR 13, 2023@12:45 ENTRY DATE: MAR 13, 2023@12:45:06 AUTHOR: VERONICA KARIMI EXP COSIGNER: URGENCY: STATUS: COMPLETED ADVANCE DIRECTIVE NOTIFICATION: I was unable to give the patient written notification of the following rights because: Comment: declined ADVANCE DIRECTIVE SCREENING NOT PERFORMED: It was not possible to perform the advance directive screening because: not interested /luis eduardo/ VERONICA KARIMI AMSA Signed: 03/13/2023 12:45 VERONICA KARIMI [facility] Mar 13, 2023 08:57 AM INTERNAL MEDICINE NOTE: LOCAL TITLE: MEDICINE CLINIC NOTE STANDARD TITLE: INTERNAL MEDICINE NOTE DATE OF NOTE: MAR 13, 2023@08:57 ENTRY DATE: MAR 13, 2023@08:57:33 AUTHOR: DESTINI JJ EXP COSIGNER: URGENCY: STATUS: COMPLETED MEDICINE CLINIC NOTE Has ADDENDA Nurse's notes reviewed from today. 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 # constipaiton: give metamucil and cont prn colace/ senna. # BPH: planning to get HoLep soon. # recent Rt CEA treatment. he stopped aSA but is taking statin. will discuss this with vascular. # left knee OA: he is planning to get replacement done in spring. cc referral done [facility] in jun 2023 # Lt big toe has perhaps beginnings of ingrown toe nail but is not really symptomatic at this time. he will get back if it does become painful. # h/o Rt CEA / bovine patch repair in 08/2022. will check if vascular wants to continue ASA. # HTN: stable. 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 has been following with EP. # CKD: Cr wnl. # Obstructive sleep apnea-continue CPAP HM: - CRC screen: does annual FIT testing. we can stop now. - etoh: once a month - tobacco: quit 50 yrs ago. - lives alone RTC in 6m with labs. HPI/ROS: - concerns about painful left big toe nail. feels it is ingrown. - has stopped taking ASA himself, doesn't feel that he needs it. - wants [facility] cc renewal done for jun 2023, he wants to discuss Left knee replacement - wants laxative. - concern for left big toe nail, has a 'feeling' there. no pain. asking if toe nail problem. Active problems - Computerized Problem List is the source for the followin. Hypertension, Nos 2. Osteoarthritis - S/P left total hip in 2005. 3. Hiatal hernia * 4. Obesity * 5. Gastroesophageal Reflux Disorder * 6. External thrombosed hemorrhoids 7. BPH w/Urin Obs & LUTS 8. Obstructive Sleep Apnea (Adult) (Pediatric) 9. Environmental Allergies 10. Hyperlipidemia 11. Gout * 12. Cataract nos 13. Constipation 14. Knee pain 15. 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 Retinal hemorrhage - right eye, jun 2022, sees local commercial green building architect Allergies: Patient has answered NKA EXAM: Last Vital Signs: BP: 126/69 (03/13/2023 12:55) Heart Rate: 55 (03/13/2023 12:55) Respirations: 16 (03/13/2023 12:55)/min Temperature: 97.2 F [36.2 C] (03/13/2023 12:55) Pain: 5 (03/13/2023 12:55) BMI: 31.9 O2 Sat: 96% (03/13/2023 12:55) General Appearance: NAD Mental Status:alert Neck:supple Chest/T Spine: Cardiac:[id number] JVP: Lungs:clear b/l Abdomen:soft NT Extremities: toes look good, mild erythema over the medial edge of left big toe nail, not tender, not clearly ingrown. Edema (*)None ()1+ ()2+ ()3+ ()4+ Pulses ()DYNAMICS AX CONSULTANT ()1+ ()2+ ()3+ ()4+ Gait: in WC Data/Labs: ( * )Patient was informed of available lab, imaging, and other study results associated with today's visit. Medication Reconciliation: Education Evaluations *Was medication education provided for NEW medications or CHANGES to medications? (including medication name, dose, route, reason for use, and potential side effects). Yes. Education on what medications? New medication(s) Comment: metamucil, vanicream Education provided to the following: Patient Type of education provided: Written materials Assessment of patient understanding of education content. Demonstrates TERATOGENIC MED & CONTRACEPTION REVIEW (Optional)... MEDICATION RECONCILIATION Active and Recently Outpatient Medications (including Supplies): Issue Date Status Last Fill Active Outpatient Medications Refills Expiration 1) APIXABAN 5MG TAB Qty: 180 for 90 days ACTIVE Issu:09-02-22 Sig: TAKE ONE TABLET BY MOUTH EVERY 12 Refills: 1 Last:03-09-23 HOURS TO TREAT AND/OR PREVENT BLOOD Expr:09-03-23 CLOTS 2) ASPIRIN 81MG EC TAB Qty: 120 for 90 ACTIVE Issu:08-28-22 days Sig: TAKE ONE TABLET BY MOUTH Refills: 1 Last:02-15-23 EVERY DAY TO PREVENT BLOOD CLOTS DO Expr:08-29-23 NOT CHEW 3) ATORVASTATIN CALCIUM 40MG TAB Qty: 90 ACTIVE (S) Issu:08-20-22 for 90 days Sig: TAKE ONE TABLET BY Refills: 0 Last:05-16-23 MOUTH AT BEDTIME FOR CHOLESTEROL Expr:08-21-23 4) DEPEND UNDERWEAR,MAXIMUM,MEN LARGE Qty: ACTIVE Issu:12-04-22 68 for 30 days Sig: USE 1 BRIEF Refills: 11 Last:12-04-22 DIRECTED Expr:12-05-23 5) DICLOFENAC NA 1% TOP GEL Qty: 200 for ACTIVE Issu:10-23-22 25 days Sig: APPLY 4 GRAMS TOPICALLY Refills: 3 Last:10-27-22 TWICE A DAY TO AFFECTED AREA FOR PAIN. Expr:10-24-23 *USE DOSE CARD IN BOX TO MEASURE DOSE. MAX 32 GRAMS PER DAY. 6) FINASTERIDE 5MG TAB Qty: 30 for 30 days ACTIVE Issu:12-04-22 Sig: TAKE ONE TABLET BY MOUTH EVERY Refills: 7 Last:03-24-23 DAY FOR PROSTATE Expr:12-05-23 7) HYDROCHLOROTHIAZIDE 12.5MG TAB Qty: 90 ACTIVE Issu:08-13-22 for 90 days Sig: TAKE ONE TABLET BY Refills: 1 Last:03-09-23 MOUTH EVERY DAY FOR BLOOD PRESSURE Expr:08-14-23 8) LISINOPRIL 40MG TAB Qty: 90 for 90 days ACTIVE Issu:12-11-22 Sig: TAKE ONE TABLET BY MOUTH EVERY Refills: 2 Last:03-17-23 DAY FOR HEART AND BLOOD PRESSURE Expr:12-12-23 9) METOPROLOL SUCCINATE 50MG SA TAB Qty: ACTIVE (S) Issu:12-10-22 45 for 90 days Sig: TAKE ONE-HALF Refills: 2 Last:05-17-23 TABLET BY MOUTH EVERY DAY Expr:12-11-23 10) TAMSULOSIN HCL 0.4MG CAP Qty: 30 for 30 ACTIVE Issu:03-10-23 days Sig: TAKE ONE CAPSULE BY MOUTH Refills: 0 Last:03-23-23 EVERY EVENING FOR PROSTATE Expr:04-09-23 Issue Date Status Last Fill Pending Outpatient Medications Refills Expiration 1) DOCUSATE NA 50MG/SENNOSIDES 8.6MG TAB PENDING Qty: 100 Sig: TAKE 1 TABLET BY MOUTH Refills: 0 TWICE A DAY NEEDED 2) PSYLLIUM ORAL PWD Qty: 390 Sig: TAKE 1 PENDING TABLESPOONFUL BY MOUTH EVERY DAY Refills: 0 3) VANICREAM TOP CREAM Qty: 454 Sig: PENDING APPLY THIN LAYER TOPICALLY TWICE A DAY Refills: 0 Issue Date Status Last Fill Inactive Outpatient Medications Refills Expiration 1) APIXABAN 5MG TAB Qty: 180 for 90 days DISCONTINUED Issu:02-20-22 Sig: TAKE ONE TABLET BY MOUTH EVERY 12 Refills: 1 Last:08-29-22 HOURS TO PREVENT BLOOD CLOTS Expr:02-21-23 2) CARBOXYMETHYLCELLULOSE NA 0.5% OPH SOLN Issu:11-22-21 Qty: 15 for 30 days Sig: INSTILL 1 Refills: 1 Last:05-24-22 DROP IN BOTH EYES TWICE A DAY FOR DRY Expr:11-23-22 EYES 3) DICLOFENAC NA 1% TOP GEL Qty: 200 for DISCONTINUED Issu:03-31-22 25 days Sig: APPLY 4 GRAMS TOPICALLY Refills: 0 Last:06-06-22 TWICE A DAY TO AFFECTED AREA FOR PAIN. Expr:04-01-23 *USE DOSE CARD IN BOX TO MEASURE DOSE. MAX 32 GRAMS PER DAY. 4) DOCUSATE NA 50MG/SENNOSIDES 8.6MG TAB Issu:12-11-22 Qty: 100 for 50 days Sig: TAKE 1 Refills: 0 Last:12-22-22 TABLET BY MOUTH TWICE A DAY NEEDED Expr:01-30-23 FOR CONSTIPATION 5) DOCUSATE NA 50MG/SENNOSIDES 8.6MG TAB DISCONTINUED Issu:11-11-22 Qty: 100 for 50 days Sig: TAKE 1 Refills: 0 Last:11-12-22 TABLET BY MOUTH TWICE A DAY NEEDED Expr:12-31-22 FOR CONSTIPATION 6) HYDROCHLOROTHIAZIDE 25MG TAB Qty: 45 DISCONTINUED Issu:01-27-22 for 90 days Sig: TAKE ONE-HALF TABLET Refills: 2 Last:04-19-22 BY MOUTH EVERY DAY FOR BLOOD PRESSURE Expr:01-28-23 7) LIDOCAINE 5% PATCH Qty: 30 for 30 days Issu:02-03-23 Sig: APPLY 1 PATCH TOPICALLY EVERY DAY Refills: 0 Last:02-04-23 NEEDED FOR PAIN Expr:03-05-23 8) LIDOCAINE 5% PATCH Qty: 30 for 30 days DISCONTINUED Issu:12-30-22 Sig: APPLY 1 PATCH TOPICALLY EVERY DAY Refills: 0 Last:12-31-22 NEEDED FOR PAIN Expr:01-29-23 9) MAGNESIUM OXIDE 400MG TAB Qty: 120 for Issu:11-20-21 90 days Sig: TAKE ONE TABLET BY MOUTH Refills: 3 Last:11-21-21 EVERY MORNING Expr:11-21-22 10) METOPROLOL SUCCINATE 50MG SA TAB Qty: DISCONTINUED Issu:01-27-22 45 for 90 days Sig: TAKE ONE-HALF Refills: 0 Last:12-08-22 TABLET BY MOUTH EVERY DAY Expr:01-28-23 11) TAMSULOSIN HCL 0.4MG CAP Qty: 30 for 30 DISCONTINUED Issu:02-02-23 days Sig: TAKE ONE CAPSULE BY MOUTH Refills: 0 Last:03-03-23 EVERY EVENING FOR PROSTATE Expr:03-04-23 24 Total Medications Colonoscopy GAP Reminder: Recommendations are needed in the clinical reminder system following the patient's most recent colorectal cancer screening/surveillance test (Colonoscopy, Sigmoidoscopy or CT Colonography) Colorectal cancer screening/surveillance will be stopped. Reason: age > 75 COVID-19 Immunization: - co-sign vascular as vet opted to stop taking ASA himself and asking if it still needed? considering h/o CEA patch repair earlier this year. he takes apixiban chronically for h/o DVT. /luis eduardo/ Destini Jj MD Physician Signed: 03/13/2023 14:36 Receipt Acknowledged By: 03/14/2023 11:30 /luis eduardo/ OSIEL MONTANO MD STAFF VASCULAR SURGEON 03/14/2023 ADDENDUM STATUS: COMPLETED If the patient is not having any side effects or does not have any specific contraindications we generally continue aspirin, 81 mg enteric-coated daily. If there are contraindications then it can be discontinued. It is not uncommon for us(vascular) to continue enteric-coated baby aspirin along with apixaban as long as there are no problems associated with it. If there are problems or concerns can be discontinued. /luis eduardo/ OSIEL MONTANO MD STAFF VASCULAR SURGEON Signed: 03/14/2023 11:38 Receipt Acknowledged By: 03/16/2023 23:30 /luis eduardo/ Destini Jj MD Physician 03/16/2023 ADDENDUM STATUS: COMPLETED plz call vet and ask him to resume baby aspirin daily as recommended by vascular surgery. thanks! /tia Jj MD Physician Signed: 03/16/2023 23:31 Receipt Acknowledged By: 03/17/2023 14:58 /luis eduardo/ GAIL HERZOG RN RN PACT Branch Examiner 03/17/2023 ADDENDUM STATUS: COMPLETED Shuttle Driver called and left detailed message on ID VM and asked Pt to resume his baby asprin daily per vascular and to call the CC with any questions. Shuttle Driver gave Pt the phone number to the call center. /luis eduardo/ GAIL HERZOG RN RN PACT Branch Examiner Signed: 03/17/2023 15:02 DESTINI JJ [facility]
--- OUTSIDE RECORDS SUMMARY | 2023-09-28 10:51 | XMS_ITS | Encounter Summary ---
Author Name [facility] Organization [facility] of [facility] Address [address] [place] [address] Support Name Relationship Address Phone TONY CULLEN Next of Kin [address] [place] [address] DEMIAN CULLENIN Emergency Contact [address] [place] [address] BLANK CULLENAN Next of Kin JOSE [facility] [address] [place], [place] Insurance Providers: All historical and current Section [...] Patient's Relationship to Policy Hernández [facility] ([facility]) MEDICARE ADVANTAGE MCR ([facility]) Jun 08, 2019 [id number] SUBHASH,BE RNARD PATIENT [facility] ([facility]) MEDICARE ADVANTAGE MCR ([facility]) Aug 06, 2013 [id number] [phone] SUBHASH,BE RNARD PATIENT Selected Encounter This section includes the information on record at [place] for the Encounter. Date/Time Encounter Type Encounter Description Reason Provider Source Dec 17, 2022 12:30 PM HEARING AID CHECK BOTH EARS AUDIOLOGY ICD-10-CM Z46.1 Encounter for fitting and adjustment of hearing aid YIFAN GALVIN [facility] Encounter Template Text not used by [place] Assessments - Encounter Diagnoses This section includes the primary and secondary diagnoses documented for the Encounter. Date/Time Primary/Secondary Diagnosis Diagnosis Name Provider Source Dec 17, 2022 01:19 PM PRIMARY Encounter for fitting and adjustment of hearing aid IAN GALVIN [facility] Dec 17, 2022 01:19 PM SECONDARY Sensorineural hearing loss, bilateral IAN GALVIN [facility] Dec 17, 2022 01:19 PM SECONDARY Tinnitus, bilateral IAN GALVIN [facility] Plan of Treatment: Future Appointments (+ 6 months) and Future Tests (+/- 45 days) The Plan of Treatment section includes future care activities for the patient from all [place] [facility] This section includes future appointments and future orders which are active, pending or scheduled. Future Appointments This section includes appointments that were scheduled to occur 6 months from the date of the Encounter, up to a maximum of 20 appointments. The data comes from all [facility]. Appointment Date/Time Appointment Type Appointme nt Facility Name Jan 01, 2023 12:15 PM AMBULATORY - MEDICINE [facility] Jan 01, 2023 12:30 PM AMBULATORY - MEDICINE [facility] Jan 01, 2023 02:00 PM AMBULATORY - MEDICINE [facility] Jan 21, 2023 10:16 AM AMBULATORY - NONE [facility] Mar 11, 2023 01:05 PM AMBULATORY - NONE [facility] Mar 13, 2023 01:45 PM AMBULATORY - MEDICINE [facility] Mar 27, 2023 03:00 PM AMBULATORY - SURGERY [facility] Apr 22, 2023 01:00 PM AMBULATORY - NONE [facility] May 19, 2023 10:15 AM AMBULATORY - SURGERY [facility] May 29, 2023 09:45 AM AMBULATORY - NONE [facility] Active, Pending, and Scheduled Orders This section includes a listing of several types of active, pending, and scheduled orders, including clinic medications orders, diagnostic test orders, procedure orders and consult orders; where the start date of the order is 45 days before the date of the Encounter or 45 days after the date of theEncounter. The data comes from all [facility]. Test Date/Time Test Type Test Details Facility Name Dec 04, 2022 08:13 AM Laboratory - Chemi stry Order .CYTO PRINT CHART COPY-LABEL SPECIMEN OTHER WC ONCE [facility] Social History: Smoking Status (Most current) and Tobacco Use (All prior to encounter date) This section includes the most current, and the historical, smoking and tobacco- related health factors from the [place] facility where the Encounter took place. Current Smoking Status This section includes the most current smoking, or tobacco-related health factor, from the [facility] where the Encounter took place. Date/Time Current Smoking Status Comment Facil ity Jun 13, 2022 01:15 PM VA-TOBACCO QUIT 15 YRS OR MORE [facility] Tobacco Use History This section includes a history of the smoking, or tobacco-related health factors, that were collected on or before the date of the Encounter. The data comes from the [place] facility where the Encounter took place. Date/Time Smoking Status/Tobacco Use Comment F acility Jun 13, 2022 01:15 PM VA-TOBACCO QUIT 15 YRS OR MORE [facility] Apr 29, 2021 12:45 PM VA-TOBACCO FORMER USER [facility] Apr 29, 2021 12:45 PM VA-TOBACCO QUIT 15 YRS OR MORE [facility] May 23, 2019 01:02 PM VA-TOBACCO NEVER USED [facility] Apr 01, 2018 12:53 PM VA-TOBACCO FORMER USER [facility] Apr 01, 2018 12:53 PM VA-TOBACCO QUIT 15 YRS OR MORE [facility] Jun 16, 2017 08:20 AM FORMER TOBACCO USER 7Y OR GREATE R [facility] May 12, 2016 11:04 AM FORMER TOBACCO USER 7Y OR GREATE R [facility] May 24, 2015 01:56 PM FORMER TOBACCO USER 7Y OR GREATE R [facility] Aug 09, 2014 09:40 AM LIFETIME NON-TOBACCO USER [facility] October 25, 2013 09:46 AM FORMER TOBACCO USER 7Y OR GREATE R [facility] Mar 17, 2007 02:35 PM FORMER TOBACCO USER 7Y OR GREATE R [facility] Mar 04, 2006 11:27 AM FORMER TOBACCO USE >1Y [facility] Advance Directives: All historical and current Section Date Range: From patient's date of to the date document was created. This section includes ALL of a patient's completed or amended [place] Advance and Rescinded Directives. The entries below indicate that a directive exists for the patient, but an actual copy is not included with this document. The data comes from all [place] facilities. Date Advance Directives Provider Source Apr 29, 2016 CLINICAL WARNING SANGEETA ALVARES [facility] 2014 CLINICAL WARNING ISAAC DARBY Yonatan BAILEY [facility] Apr 01, 2005 ADVANCE DIRECTIVE VALERIE MILLAN [facility] Pathology Reports: +/- 30 days of [...] the Encounter. The data comes from all [place] treatment facilities. Date/Time Pathology Report Provider Source Dec 05, 2022 12:04 PM LR CYTOPATHOLOGY R EPORT: LOCAL TITLE: LR CYTOPATHOLOGY REPORT STANDARD TITLE: PATHOLOGY REPORT DATE OF NOTE: DEC 05, 2022@12:04:54 ENTRY DATE: DEC 05, 2022@12:04:54 AUTHOR: KAREN BROWN EXP COSIGNER: URGENCY: STATUS: COMPLETED $APHDR Reporting Lab: [facility] [CLIA# [id number]] [place] [address] - - - - - - - - - - - - - - - - - - - - - - - - - - - - - - - - - - - - - - - - MEDICAL RECORD CYTOPATHOLOGY - - - - - - - - - - - - - - - - - - - - - - - - - - - - - - - - - - - - - - - - PATHOLOGY REPORT Accession No. [id number] [id number] - - - - - - - - - - - - - - - - - - - - - - - - - - - - - - - - - - - - - - - - $TEXT Submitted by: SHANI VENEGAS Date obtained: Dec 04, 2022 14:39 - - - - - - - - - - - - - - - - - - - - - - - - - - - - - - - - - - - - - - - - Specimen (Received Dec 04, 2022 14:39): URINE-CYTOLOGY - - - - - - - - - - - - - - - - - - - - - - - - - - - - - - - - - - - - - - - - BRIEF CLINICAL HISTORY: BCA - - - - - - - - - - - - - - - - - - - - - - - - - - - - - - - - - - - - - - - - PREOPERATIVE DIAGNOSIS: - - - - - - - - - - - - - - - - - - - - - - - - - - - - - - - - - - - - - - - - OPERATIVE FINDINGS: - - - - - - - - - - - - - - - - - - - - - - - - - - - - - - - - - - - - - - - - POSTOPERATIVE DIAGNOSIS: Surgeon/physician: SHANI VENEGAS MD =-=-=-=-=-=-=-=-=-=-=-=-=-= -=-=-=-=-=-=-=-=-=-=-=-=-=- =-=-=-=-=-=-=-=-=-=-=-=-= - - - - - - - - - - - - - - - - - - - - - - - - - - - - - - - - - - - - - - - - PATHOLOGY REPORT Accession No. CY-[place] [id number] - - - - - - - - - - - - - - - - - - - - - - - - - - - - - - - - - - - - - - - - Screened by: NITHYA Childers [facility] Description: Voided urine; 80 mL cloudy yellow fluid received. One ThinPrep slide prepared. Microscopic: Microscopic examination performed. BB Diagnosis: Urine, cytology -- NEGATIVE FOR HIGH-GRADE UROTHELIAL CARCINOMA Acute inflammation /es/ KAREN BROWN MD STAFF PATHOLOGIST Signed Dec 05, 2022@12:04 Performing Laboratory: Cytology Report Performed By: [facility] [CLIA# [id number]] [place] [place] [address] $FTR - - - - - - - - - - - - - - - - - - - - - - - - - - - - - - - - - - - - - - - - (End of report) KAREN BROWN MD bcb Date Dec 05, 2022 - - - - - - - - - - - - - - - - - - - - - - - - - - - - - - - - - - - - - - - - SABRINA CULLEN STANDARD FORM 515 ID:[id number] SEX:M :[id number] AGE: 77 LOC:[id number] PCP: Lorenza Cameron /luis eduardo/ KAREN BROWN MD STAFF PATHOLOGIST Signed: 12/05/2022 12:04 KAREN BROWN [facility] Encounter Notes: All associated encounter notes This section contains the clinical notes associated to the Encounter. Date/Time Encounter Note(s) Provider Source Dec 17, 2022 07:33 AM AUDIOLOGY NOTE: LOCAL TITLE: AUDIOLOGY CLINIC NOTE STANDARD TITLE: AUDIOLOGY NOTE DATE OF NOTE: DEC 17, 2022@07:33 ENTRY DATE: DEC 17, 2022@07:34 AUTHOR: DORITA GALVIN COSIGNER: URGENCY: STATUS: COMPLETED AUDIOLOGY CLINIC NOTE Has ADDENDA DIAGNOSIS: Sensorineural Hearing Loss - bilateral Tinnitus - bilateral LOCATION OF VISIT (ROOM NUMBER): [phone] Reason for visit: Hearing aid service was unaccompanied. Personal Protective Equipment (PPE): PPE is no longer required by [place] protocol. Masks were not worn as neither provider nor had concerning symptoms, were high risk or requested that masks be worn. HISTORY: Patient seen for a hearing aid service/hearing aid check. He reports he's pleased with the hearing aids - they are set well, never too loud and he does well with the volume control. The hearing aids are otherwise comfortable and secure in the ears. Pt denies problems with the battery life. 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 [place] also would like a TV Streamer as his friend reports that works great for him. He would also like to have his aids connected to the Personal Style Finder ayse so he can more easily change the volume. 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 Normal anatomy bilaterally. HEARING AID CHECK: Hearing aids were cleaned and checked. Replaced: waxguards. The microphone screens and battery contacts were clear. The listening check was then good for both aids. Pt was pleased with the sound quality post cleaning. REPROGRAMMING: reports the aids are paired with his Android cell for phone calls which is working great. Successfully paired the hearing aids with pt's ayse. Reviewed the use of the ayse and indicated understanding. Discussed the use of the Speech in Loud Noise program (i.e. for the board meetings). Discussed the limitations inherent in bluetooth technology. Answered questions. The Bryce On In accessory was successfully paired to the hearing aids. [place] was educated and counseled on use and features of the device(s) as well as how to connect them. Demonstrated the Bryce extensively in the office to ensure both device functionality and understanding. Reviewed how can utilize the Bryce; reviewed how 's family can utilize the Bryce. Discussed several challenging listening environments (i.e. groups, restaurant, car, tv) and how can utilize the Bryce to maximize hearing aid performance. Suggested he also use this device during board meetings in the pointing mode. Discussed that he can also use the Bryce for TV streaming, and does not need a separate device for this. Answered questions. Pt was provided with the cotton picking machine operator support phone number should he have problems with the bluetooth connectivity, ayse and/or Bryce in the future. He also put this phone number into his cell. [facility] and procedures with the patient. Ordered more supplies in ROES for patient. Provided with a spare wine cellar stock clerk from our stock in the office. was counseled on the cleaning, care and use of hearing aids. Answered all questions. Plan: 1) Follow up as medically indicated or if a change in hearing is noted. 2) RTC for servicing of amplification as needed. DIANA IS IN AGREEMENT WITH THIS PLAN /luis eduardo/ Hunter DRISCOLL, [facility] RUBBER AND POUNDER Signed: 12/17/2022 13:19 03/24/2023 ADDENDUM STATUS: COMPLETED Spoke with on the phone to see if we could troubleshoot his hearing aid problems over the phone/via [facility] instead of his in-person appt scheduled for Thursday. stated he would like to be seen in-person, as he thinks his ears need to be cleaned, his aids need to be cleaned, and he would like his aids paired to his phone, if possible, for changing volume control. /es/ JOVI COOK Print Shop Chief Clerk Signed: 03/24/2023 11:25 DORITA GALVIN [facility]
--- OUTSIDE RECORDS SUMMARY | 2023-09-28 10:51 | XMS_ITS ---
Author Name [employer] [facility] [employer] [employer] Organization [facility] Address [address] [place] [address] Support Name Relationship Address Phone TONY CULLEN Next of Kin [address] [place] [address] SUBHASH, TONY Emergency Contact [address] [facility] [place], [place] [phone] SUBHASH, ELIZABETH Next of Kin JOSE [facility] [address] [place] Insurance Providers: All historical and current Section [...] Patient's Relationship to Policy Hernández [facility] ([facility] MEDICARE ADVANTAGE M[facility] ([facility] Jun 08, 2019 [id number] SUBHASH,BE RNARD PATIENT [facility] ([facility]) MEDICARE ADVANTAGE [facility] ([facility] Aug 06, 2013 [id number] SUBHASH,BE RNARD PATIENT Selected Encounter This section includes the information on record at [place] for the Encounter. Date/Time Encounter Type Encounter Description Reason Provider Source Jan 01, 2023 02:00 PM OFFICE O/P EST MOD 30-39 MIN CARDIOLOGY ICD-10-CM I49.3 Ventricular premature depolarization TASH DIA [place] Encounter Template Text not used by [place] Assessments - Encounter Diagnoses This section includes the primary and secondary diagnoses documented for the Encounter. Date/Time Primary/Secondary Diagnosis Diagnosis Name Provider Source Jan 01, 2023 10:21 PM PRIMARY Ventricular premature depolarization TASH DIA [facility] Plan of Treatment: Future Appointments (+ 6 months) and Future Tests (+/- 45 days) The Plan of Treatment section includes future care activities for the patient from [facility] [facility]. This section includes future appointments and future orders which are active, pending or scheduled. Future Appointments This section includes appointments that were scheduled to occur 6 months from the date of the Encounter, up to a maximum of 20 appointments. The data comes from all [facility]. Appointment Date/Time Appointment Type Appointme nt Facility Name Jan 21, 2023 10:16 AM AMBULATORY - NONE [facility] Mar 11, 2023 01:05 PM AMBULATORY - NONE [facility] Mar 13, 2023 01:45 PM AMBULATORY - MEDICINE [facility] Mar 27, 2023 03:00 PM AMBULATORY - SURGERY [facility] Apr 22, 2023 01:00 PM AMBULATORY - NONE [facility] May 19, 2023 10:15 AM AMBULATORY - SURGERY [facility] May 29, 2023 09:45 AM AMBULATORY - NONE [facility] Active, Pending, and Scheduled Orders This section includes a listing of several types of active, pending, and scheduled orders, including clinic medications orders, diagnostic test orders, procedure orders and consult orders; where the start date of the order is 45 days before the date of the Encounter or 45 days after the date of theEncounter. The data comes from all [facility]. Test Date/Time Test Type Test Details Facility Name Dec 04, 2022 08:13 AM Laboratory - Chemi stry Order .CYTO PRINT CHART COPY-LABEL SPECIMEN OTHER WC ONCE [facility] Lab Results: +/- 30 days of the encounter This section includes the Chemistry and Hematology Lab Results on record with [place] for the patient. Radiology Reports and Pathology Reports are provided separately, in subsequent sections. Lab Results This section contains the Chemistry/Hematology Results that were resulted 30 days before or 30 daysafter the date of the Encounter. Date/Time Source Result Type Result - Unit Interpretation Reference Range Comment Jan 26, 2023 08:24 AM [facility] .OCCULT BLOOD(FIT) Specimen Type: FECES No comment entered. Ordering Provider: IESHA MARADIAGA Report Released Date/Time: Jan 26, 2023 08:24 AM Reporting Lab: [facility] [address] [facility] [id number] Performing Lab: [facility] [address] [facility] [id number] .OCCULT BLOOD(FIT ) Negative Vital Signs: All taken on the encounter date This section contains inpatient and outpatient Vital Signs collected on the date of the Encounter. Date/Time Temperature Pulse Blood Pressure Respiratory Rate SP02 Pain Height Weight Body Mass Index Source Jan 01, 2023 01:29 PM 97.8 F 58 /min 116/66 mm[Hg] 16 /min 98 % 0 225.8 lb 31 [facility] Social History: Smoking Status (Most current) and Tobacco Use (All prior to encounter date) This section includes the most current, and the historical, smoking and tobacco- related health factors from the [place] facility where the Encounter took place. Current Smoking Status This section includes the most current smoking, or tobacco-related health factor, from the [place] facility where the Encounter took place. Date/Time Current Smoking Status Comment Deandre ity Jun 13, 2022 01:15 PM VA-TOBACCO FORMER USER [facility] Tobacco Use History This section includes a history of the smoking, or tobacco-related health factors, that were collected on or before the date of the Encounter. The data comes from the [place] facility where the Encounter took place. Date/Time Smoking Status/Tobacco Use Comment F [email or web address] Jun 13, 2022 01:15 PM VA-TOBACCO QUIT 15 YRS OR MORE [facility] Apr 29, 2021 12:45 PM VA-TOBACCO FORMER USER [facility] Apr 29, 2021 12:45 PM VA-TOBACCO QUIT 15 YRS OR MORE [facility] May 23, 2019 01:02 PM VA-TOBACCO NEVER USED [facility] Apr 01, 2018 12:53 PM VA-TOBACCO FORMER USER [facility] Apr 01, 2018 12:53 PM VA-TOBACCO QUIT 15 YRS OR MORE [facility] Jun 16, 2017 08:20 AM FORMER TOBACCO USER 7Y OR GREATE R [facility] May 12, 2016 11:04 AM FORMER TOBACCO USER 7Y OR GREATE R [facility] May 24, 2015 01:56 PM FORMER TOBACCO USER 7Y OR GREATE R [facility] Aug 09, 2014 09:40 AM LIFETIME NON-TOBACCO USER [facility] October 25, 2013 09:46 AM FORMER TOBACCO USER 7Y OR GREATE R [facility] Mar 17, 2007 02:35 PM FORMER TOBACCO USER 7Y OR GREATE R [facility] Mar 04, 2006 11:27 AM FORMER TOBACCO USE >1Y [facility] Advance Directives: All historical and current Section Date Range: From patient's date of to the date document was created. This section includes ALL of a patient's completed or amended [place] Advance and Rescinded Directives. The entries below indicate that a directive exists for the patient, but an actual copy is not included with this document. The data comes from all [place] facilities. Date Advance Directives Provider Source Apr 29, 2016 CLINICAL WARNING SANGEETA ALVARES [facility] 2014 CLINICAL WARNING ISAAC DARBY [facility] Apr 01, 2005 ADVANCE DIRECTIVE VALERIE MILLAN [facility] Pathology Reports: +/- 30 days of [...] the Encounter. The data comes from all [place] treatment facilities. Date/Time Pathology Report Provider Source Dec 05, 2022 12:04 PM LR CYTOPATHOLOGY R EPORT: LOCAL TITLE: LR CYTOPATHOLOGY REPORT STANDARD TITLE: PATHOLOGY REPORT DATE OF NOTE: DEC 05, 2022@12:04:54 ENTRY DATE: DEC 05, 2022@12:04:54 AUTHOR: KAREN BROWN EXP COSIGNER: URGENCY: STATUS: COMPLETED $APHDR Reporting Lab: [facility] [CLIA# [id number]] [place] [place] [address] - - - - - - - [...] - - - - Screened by: NITHYA SINGER Description: Voided urine; 80 mL cloudy yellow fluid received. One ThinPrep slide prepared. Microscopic: Microscopic examination performed. BB Diagnosis: Urine, cytology -- NEGATIVE FOR HIGH-GRADE UROTHELIAL CARCINOMA Acute inflammation /luis eduardo/ KAREN BROWN MD STAFF PATHOLOGIST Signed Dec 05, 2022@12:04 Performing Laboratory: Cytology Report Performed By: [facility] [CLIA# [id number]] [place] [address] $FTR - - - - - - [...] - - SABRINA CULLEN STANDARD FORM 515 ID:[id number] SEX:M :1945 AGE: 77 LOC:[id number] PCP: Lorenza Cameron /luis eduardo/ KAREN BROWN MD STAFF PATHOLOGIST Signed: 12/05/2022 12:04 KAREN BROWN [facility] Encounter Notes: All associated encounter notes This section contains the clinical notes associated to the Encounter. 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 Saw pt in consult clinic in December 2021 d/t bradycardia and bigeminal PVCs. He had COVID in September 2021 and had been having fatigue and shortness of breath but had been improving over the prior month. TTE at OSH EF was 60-65%, TTE the day of consult EF was 50-55%. A Zio monitor was placed to determine his PVC burden and revealed a 16% burden), he was started on metoprolol. He reported both typical and atypical chest pain so a stress test was ordered which was negative for ischemia, no WMA and an EF of 47%. Plan is for yearly f/u with TTE to ensure that he doesn't develop PVC induced CM. He was scheduled into [facility] clinic for yearly PVC f/u. He has multiple upcoming procedures, he is going to get his left knee replaced in September 2023 at [facility]. He had a Rt CEA in August 2022, he is awaiting having prostate appt with urology in 01/2023. He states that when he has been checking his BP, he is having less low HR on his monitor so he thinks he's having less PVCs. He's also lost 10-15 lbs. His BP is a little lower as well. He denies chest pain, pressure, heaviness, heart fluttering, racing, shortness of breath, HARPER, PND, orthopnea. He felt palpitations once when he sleeping, he thinks it was b/c his AC was too cold, he checked his pulse and it was regular. Occasionally lightheaded and dizzy if he gets up too quickly. The hot and humid weather really gets to him. His mom is 99 and will be 100 on 05/04. ROS: 12 point review of systems negative for acute issues except as noted in HPI. PMHx: PVCs - 16% avg burden w/range 7.7-24.6% (Zio 12/2021) HTN HLD GERD DONALD - compliant w/ CPAP Obesity gout Rt leg DVT/PE (2018 or 2019) - on apixaban Hiatal hernia BPH - w/LUTS Constipation External thrombosed hemorrhoids OA - s/p Lt BERT (2005) - knee pain Cataract PSHx: *Tobacco - former, quit 1973, 5 years, approx 1/2 ppd *ETOH - hardly at all, 1 ghada and water or glass of wine/ 3 times/month *Illicits - none *no unusual OTC supplements FHx: Mother - alive @ 99 yo, relatively healthy Father - @ 86 yo, Parkinsons 1 sister - 3 years younger, alive and healthy 1 brother - 8 years younger, alive and healthy No children PRIOR CARDIAC TESTING - 14 day TermSynco Event monitor (12/2021): INDICATION: PVCs HEART RATE (bpm) while in sinus rhythm Minimum: 49 Average: 67 Maximum: 107 PVC burden(%): 16% PAC burden(%): <1% INTERPRETATION: 1. Patient had a min HR of 49 bpm, max HR of 187 bpm, and avg HR of 68 bpm. Predominant underlying rhythm was sinus rhythm. Bundle Branch Block/IVCD was present. 2. 8 Ventricular tachycardia runs occurred - the run with the fastest interval lasting 4 beats with a max rate of 143 bpm, the longest lasting 15.8 secs with an avg rate of 104 bpm. 3. 22 SVT runs occurred - the run with the fastest interval lasting 15 beats with a max rate of 187 bpm, the longest lasting 13 beats with an avg rate of 110 bpm. 4. PVCs as described above, 16% avg burden w/range 7.7-24.6%. 5. 19 triggered events and 14 diary events - correlated with sinus rhythm, ventricular bigeminy and trigeminy. - TTE (01/01/23): Interpretation Summary A complete two-dimensional transthoracic echocardiogram (31471) was performed without contrast. 1. Technically reasonable study. 2. The left ventricular systolic function is low normal. The visually estimated LVEF is 50-55%. 3. The right ventricle is normal size. and systolic function is normal. 4. The left atrium is severely dilated. 5. There is trivial MR, mild TR and no AR. 6. Estimated RVSP is 28 + RAP mmHg (normal). 7. The inferior vena cava is normal in size, and collapses normally with respiration. 8. Compared to previous study from 12/12/2021, the LVEF is unchanged. - TTE (12/12/21): Interpretation Summary A complete two-dimensional transthoracic echocardiogram (53487) was performed without contrast. The visually estimated ejection fraction is 50-55%. There is mild aortic sclerosis without stenosis. The right ventricular systolic function is normal. Normal pulmonary artery systolic pressure. The inferior vena cava is normal in size, and collapses normally with respiration. There is no prior TTE for comparison. - TTE (11/14/21) @ OSH: Final impressions: 1. Normal LV size, not well visualized wall thickness, normal global systolic function with an estimated EF of 60-65%. 2. RV cavity size is normal, global systolic RV function is normal. - TTE (09/01/14): Summary: 1. Normal left ventricular size and systolic function with an estimated ejection fraction between 55-65% and no regional wall motion abnormalities. 2. Mild concentric left ventricular hypertrophy. 3. Normal right ventricular size and systolic function. 4. No significant valvular abnormalities. - MPI (06/13/22): Report: Regadenoson myocardial perfusion study History: Assess for ischemia, patient with PVCs and occasional chest pain. Dose: 0.4 mg of Regadenoson IV followed by 16.4 mCi Tc-99 m Sestamibi. 5.7 mCi Tc-99 m Sestamibi IV for the resting study. No adverse effects. No diagnostic EKG changes. SPECT images demonstrate no diagnostic abnormality. Impression: 1. No ischemia demonstrated. 2. Left ventricular ejection fraction is 47%. No focal wall motion abnormality. - EKGs (01/01/23): Sinus rhythm w/occ PVCs, incomplete RBBB @ 62 bpm (12/12/21): Sinus rhythm with occ PVCs and PACs, incomplete RBBB @ 71 bpm (11/20/21): Sinus rhythm with occ PVCs @ 73 bpm (04/05/19): Sinus bradycardia @ 56 bpm (05/24/18): Normal sinus rhythm @ 61 bpm Allergies: Patient has answered NKA Medications: Outpatient Medications Status 1) APIXABAN 5MG TAB TAKE ONE TABLET BY MOUTH EVERY 12 ACTIVE HOURS TO TREAT AND/OR PREVENT BLOOD CLOTS 2) ASPIRIN 81MG EC TAB TAKE ONE TABLET BY MOUTH EVERY ACTIVE (S) DAY TO PREVENT BLOOD CLOTS DO NOT CHEW 3) ATORVASTATIN CALCIUM 40MG TAB TAKE ONE TABLET BY ACTIVE (S) MOUTH AT BEDTIME FOR CHOLESTEROL 4) DICLOFENAC NA 1% TOP GEL APPLY 4 GRAMS TOPICALLY ACTIVE TWICE A DAY TO AFFECTED AREA FOR PAIN. *USE DOSE CARD IN BOX TO MEASURE DOSE. MAX 32 GRAMS PER DAY. 5) DOCUSATE NA 50MG/SENNOSIDES 8.6MG TAB TAKE 1 TABLET ACTIVE BY MOUTH TWICE A DAY NEEDED FOR CONSTIPATION 6) FINASTERIDE 5MG TAB TAKE ONE TABLET BY MOUTH EVERY ACTIVE DAY FOR PROSTATE 7) HYDROCHLOROTHIAZIDE 12.5MG TAB TAKE ONE TABLET BY ACTIVE MOUTH EVERY DAY FOR BLOOD PRESSURE 8) LIDOCAINE 5% PATCH APPLY 1 PATCH TOPICALLY EVERY DAY ACTIVE NEEDED FOR PAIN 9) LISINOPRIL 40MG TAB TAKE ONE TABLET BY MOUTH EVERY ACTIVE DAY FOR HEART AND BLOOD PRESSURE 10) METOPROLOL SUCCINATE 50MG SA TAB TAKE ONE-HALF TABLET ACTIVE (S) BY MOUTH EVERY DAY 11) TAMSULOSIN HCL 0.4MG CAP TAKE ONE CAPSULE BY MOUTH ACTIVE EVERY EVENING FOR PROSTATE Vitals: Temperature: 97.8 F [36.6 C] (01/01/2023 13:29) Blood Pressure: 116/66 (01/01/2023 13:29) Pulse: 58 (01/01/2023 13:29) Respiration: 16 (01/01/2023 13:29) Pain: 0 (01/01/2023 13:29) Pulse Oximetry: 98% (01/01/2023 13:29) Weight: 225.8 lb [102.42 kg] (01/01/2023 13:29) PE: GA: pleasant, well-appearing, anxious, older, male in NAD HEENT: NC/AT; PERRL; EOMI Neck: supple; NT; no JVD Pulm: CTAB CV: RRR; no m/r/g; Ext: no edema bilaterally Assessment/Plan: * PVCs/bradycardia - pt was referred to EP d/t bradycardia and bigeminal PVCs after COVID infection. He was symptomatic with fatigue and shortness of breath. Zio w/ a 16% avg burden w/range 7.7-24.6% on Zio 12/2021. - TTE at OSH EF was 60-65%, EF was 50-55% in December 2021, poss d/t inter-reader variabililty but also poss d/t PVCs. MPI 06/2022 was negative for ischemia, EF 47% and no WMA. - he was started on metoprolol succinate 25 mg QD and feels better on this - he thinks he is having less PVCs b/c his HR has been higher when he checks his BP. Offered to place another Zio to assess burden but he declined. EKG today SR w/occ PVCs @ 62 bpm. - will plan on yearly f/u w/TTE to ensure he doesn't develop PVC induced CM - we discussed ways to prevent PVCs including continued good BP control, avoiding stimulants and excessive ETOH use, continued compliance with CPAP. * f/u - yearly in [facility] clinic with EKG and echo prior /es/ TASH DIA, STANLEY, INSTALLMENT LOAN COLLECTOR Electrophysiology Nurse Practitioner Signed: 01/01/2023 22:21 TASH DIA [facility] Jan 01, 2023 01:30 PM INTERNAL MEDICINE OUTPATIENT NOTE: LOCAL TITLE: MEDICINE CLINIC NURSING NOTE STANDARD TITLE: INTERNAL MEDICINE OUTPATIENT NOTE DATE OF NOTE: JAN 01, 2023@13:30 ENTRY DATE: JAN 01, 2023@13:31:02 AUTHOR: JUAN TRUJILLO EXP COSIGNER: URGENCY: STATUS: COMPLETED TYPE OF VISIT: Appointment Check In Type of appointment: In-person appointment REASON FOR VISIT: scheduled visit ALLERGIES: Patient has answered NKA VITAL SIGNS: Blood Pressure: 116/66 (01/01/2023 13:29) Pulse: 58 (01/01/2023 13:29) Respiration: 16 (01/01/2023 13:29) Temperature: 97.8 F [36.6 C] (01/01/2023 13:29) Weight: 225.8 lb [102.42 kg] (01/01/2023 13:29) Height: Unavailable (06/13/2022 12:46) BMI: BMI not available without height O2 Sat: 98% (01/01/2023 13:29) Pain: 0 (01/01/2023 13:29) PAIN SCREEN: Patient is not having significant pain that they wish to discuss with their provider today. MEDICATION Active Outpatient Medications (including Supplies): APIXABAN 5MG TAB TAKE ONE TABLET BY MOUTH EVERY 12 HOURS ACTIVE TO TREAT AND/OR PREVENT BLOOD CLOTS ASPIRIN 81MG EC TAB TAKE ONE TABLET BY MOUTH EVERY DAY TO ACTIVE (S) PREVENT BLOOD CLOTS DO NOT CHEW ATORVASTATIN CALCIUM 40MG TAB TAKE ONE TABLET BY MOUTH AT ACTIVE (S) BEDTIME FOR CHOLESTEROL DEPEND UNDERWEAR,MAXIMUM,MEN LARGE USE 1 BRIEF ACTIVE DIRECTED DICLOFENAC NA 1% TOP GEL APPLY 4 GRAMS TOPICALLY TWICE A ACTIVE DAY TO AFFECTED AREA FOR PAIN. *USE DOSE CARD IN BOX TO MEASURE DOSE. MAX 32 GRAMS PER DAY. DOCUSATE NA 50MG/SENNOSIDES 8.6MG TAB TAKE 1 TABLET BY ACTIVE MOUTH TWICE A DAY NEEDED FOR CONSTIPATION FINASTERIDE 5MG TAB TAKE ONE TABLET BY MOUTH EVERY DAY FOR ACTIVE PROSTATE HYDROCHLOROTHIAZIDE 12.5MG TAB TAKE ONE TABLET BY MOUTH ACTIVE EVERY DAY FOR BLOOD PRESSURE LIDOCAINE 5% PATCH APPLY 1 PATCH TOPICALLY EVERY DAY ACTIVE NEEDED FOR PAIN LISINOPRIL 40MG TAB TAKE ONE TABLET BY MOUTH EVERY DAY FOR ACTIVE HEART AND BLOOD PRESSURE METOPROLOL SUCCINATE 50MG SA TAB TAKE ONE-HALF TABLET BY ACTIVE (S) MOUTH EVERY DAY TAMSULOSIN HCL 0.4MG CAP TAKE ONE CAPSULE BY MOUTH EVERY ACTIVE EVENING FOR PROSTATE /es/ JUAN Pinto. COLIN TRUJILLO LPN Signed: 01/01/2023 13:31 JUAN TRUJILLO [facility]
--- OUTSIDE RECORDS SUMMARY | 2023-09-28 10:51 | XMS_ITS | Encounter Summary ---
Author Name [facility] Organization [facility] Address [address] [place] [address] Support Name Relationship Address Phone SUBHASHTONY RICHARDSON Next of Kin [address] [place] [address] SUBHASH TONY Emergency Contact [address] [facility] [place], [place] [phone] ELIZABETH CULLEN Next of Kin JOSE [facility] [address] [place] Insurance Providers: All historical [...] Patient's Relationship to Policy Hernández [facility] ([facility]) MEDICARE ADVANTAGE [facility] ([facility]) Jun 08, 2019 [id number] [phone] SUBHASH,BE RNARD PATIENT [facility] (WNR) MEDICARE ADVANTAGE [facility] ([facility]) Aug 06, 2013 RIVAAB [id number] [phone] SUBHASH,BE RNARD PATIENT Selected Encounter This section includes the information on record at [place] for the Encounter. Date/Time Encounter Type Encounter Description Reason Provider Source Dec 04, 2022 12:00 PM OFFICE O/P EST MOD 30-39 MIN PATIENT CARE IN OR ICD-10-CM R31.9 Hematuria, unspecified AAMIR HUYNH Encounter Template Text not used by [place] Assessments - Encounter Diagnoses This section includes the primary and secondary diagnoses documented for the Encounter. Date/Time Primary/Secondary Diagnosis Diagnosis Name Provider Source Dec 05, 2022 07:44 AM PRIMARY Hematuria, unspecified AAMIR HUYNH [facility] Plan of Treatment: Future Appointments (+ 6 months) and Future Tests (+/- 45 days) The Plan of Treatment section includes future care activities for the patient from all [place] [facility] This section includes future appointments and future orders which are active, pending or scheduled. Future Appointments This section includes appointments that were scheduled to occur 6 months from the date of the Encounter, up to a maximum of 20 appointments. The data comes from all [facility]. Appointment Date/Time Appointment Type Appointme nt Facility Name Dec 17, 2022 12:30 PM AMBULATORY - SURGERY [facility] Jan 01, 2023 12:15 PM [facility] Jan 01, 2023 12:30 PM [facility] Jan 01, 2023 02:00 PM [facility] Jan 21, 2023 10:16 AM [facility] Mar 11, 2023 01:05 PM [facility] Mar 13, 2023 01:45 PM [facility] Mar 27, 2023 03:00 PM AMBULATORY - SURGERY [facility] Apr 22, 2023 01:00 PM [facility] May 19, 2023 10:15 AM AMBULATORY - SURGERY [facility] May 29, 2023 09:45 AM AMBULATORY - NONE [facility] Active, Pending, and Scheduled Orders This section includes a listing of several types of active, pending, and scheduled orders, including clinic medications orders, diagnostic test orders, procedure orders and consult orders; where the start date of the order is 45 days before the date of the Encounter or 45 days after the date of theEncounter. The data comes from all [facility]. Test Date/Time Test Type Test Details Facility Name Dec 04, 2022 08:13 AM Laboratory - Chemi stry Order .CYTO PRINT CHART COPY-LABEL SPECIMEN OTHER WC ONCE [facility] Vital Signs: All taken on the encounter date This section contains inpatient and outpatient Vital Signs collected on the date of the Encounter. Date/Time Temperature Pulse Blood Pressure Respiratory Rate SP02 Pain Height Weight Body Mass Index Source Dec 04, 2022 12:26 PM 96.1 F 63 /min 171/79 mm[Hg] 16 /min 99 % 0 [place] [facility] Social History: Smoking Status (Most current) and Tobacco Use (All prior to encounter date) This section includes the most current, and the historical, smoking and tobacco- related health factors from the [place] facility where the Encounter took place. Current Smoking Status This section includes the most current smoking, or tobacco-related health factor, from the [place] facility where the Encounter took place. Date/Time Current Smoking Status Comment Facil ity Jun 13, 2022 01:15 PM VA-TOBACCO FORMER USER [facility] Tobacco Use History This section includes a history of the smoking, or tobacco-related health factors, that were collected on or before the date of the Encounter. The data comes from the [place] facility where the Encounter took place. Date/Time Smoking Status/Tobacco Use Comment F acility Jun 13, 2022 01:15 PM VA-TOBACCO QUIT 15 YRS OR MORE [facility] Apr 29, 2021 12:45 PM VA-TOBACCO FORMER USER [facility] Apr 29, 2021 12:45 PM VA-TOBACCO QUIT 15 YRS OR MORE [facility] May 23, 2019 01:02 PM VA-TOBACCO NEVER USED [facility] Apr 01, 2018 12:53 PM VA-TOBACCO FORMER USER [facility] Apr 01, 2018 12:53 PM VA-TOBACCO QUIT 15 YRS OR MORE [facility] Jun 16, 2017 08:20 AM FORMER TOBACCO USER 7Y OR GREATE R [facility] May 12, 2016 11:04 AM FORMER TOBACCO USER 7Y OR GREATE R [facility] May 24, 2015 01:56 PM FORMER TOBACCO USER 7Y OR GREATE R [facility] Aug 09, 2014 09:40 AM LIFETIME NON-TOBACCO USER [facility] October 25, 2013 09:46 AM FORMER TOBACCO USER 7Y OR GREATE R [facility] Mar 17, 2007 02:35 PM FORMER TOBACCO USER 7Y OR GREATE R [facility] Mar 04, 2006 11:27 AM FORMER TOBACCO USE >1Y [facility] Advance Directives: All historical and current Section Date Range: From patient's date of to the date document was created. This section includes ALL of a patient's completed or amended [place] Advance and Rescinded Directives. The entries below indicate that a directive exists for the patient, but an actual copy is not included with this document. The data comes from all [place] facilities. Date Advance Directives Provider Source Apr 29, 2016 CLINICAL WARNING SANGEETA ALVARES [facility] 2014 CLINICAL WARNING MEHNAZISAAC Yonatan MONTALVO [facility] Apr 01, 2005 ADVANCE DIRECTIVE YANAVALERIE ISAIAH Tam [facility] Pathology Reports: +/- 30 days of the [...] the Encounter. The data comes from all [place] treatment facilities. Date/Time Pathology Report Provider Source Dec 05, 2022 12:04 PM LR CYTOPATHOLOGY R EPORT: LOCAL TITLE: LR CYTOPATHOLOGY REPORT STANDARD TITLE: PATHOLOGY REPORT DATE OF NOTE: DEC 05, 2022@12:04:54 ENTRY DATE: DEC 05, 2022@12:04:54 AUTHOR: KAREN BROWN EXP COSIGNER: URGENCY: STATUS: COMPLETED $APHDR Reporting Lab: [facility] [CLIA# [id number]] [place] [address] - - - - - - - [...] - - - - [facility] Description: Voided urine; 80 mL cloudy yellow fluid received. One ThinPrep slide prepared. Microscopic: Microscopic examination performed. BB Diagnosis: Urine, cytology -- NEGATIVE FOR HIGH-GRADE UROTHELIAL CARCINOMA Acute inflammation /es/ KAREN BROWN MD STAFF PATHOLOGIST Signed Dec 05, 2022@12:04 Performing Laboratory: Cytology Report Performed By: [facility] [CLIA# [id number]] [place] [address] $FTR - - - - - - - - - - - - - - - - - - - - - - - - - - - - - - - - - - - - - - - - (End of report) KAREN BROWN MD [facility] Date Dec 05, 2022 - - - - - - - - - - - - - - - - - - - - - - - - - - - - - - - - - - - - - - - - SABRINA CULLEN STANDARD FORM 515 ID:[id number] SEX:M :[id number] AGE: 77 LOC:[id number] PCP: Lorenza Cameron /luis eduardo/ KAREN BROWN MD STAFF PATHOLOGIST Signed: 12/05/2022 12:04 KAREN BROWN [facility] Encounter Notes: All associated encounter notes This section contains the clinical notes associated to the Encounter. Date/Time Encounter Note(s) Provider Source Dec 04, 2022 02:31 PM UROLOGY PROCEDURE NOTE: LOCAL TITLE: UROLOGY PROCEDURE STANDARD TITLE: UROLOGY PROCEDURE NOTE DATE OF NOTE: DEC 04, 2022@14:31 ENTRY DATE: DEC 03, 2022@14:20:39 AUTHOR: SHANI VENEGAS COSIGNER: URGENCY: STATUS: COMPLETED UROLOGY PROCEDURE Has ADDENDA PROCEDURE: Diagnostic Cystoscopy PRE-OP Dx: GH POST-OP Dx: Same + neg cysto (massive prostate) CLINICAL HX/INDICATIONS: 77 yo male w/ PMH of elevated PSA s/p negative TRUSP, htn, bibiana, bph who had episode of clot retention s/p R CEA in early August. Has since had successful TOV and presents today for cysto to complete hematuria workup. Reporting significant frequency, nocturia. No prev cytology. CTU Denies UTI sxs AC: Apixaban IMAGING: CTU 08/2022 Impression: 1. No suspicious filling defects identified within the opacified portions of the urinary tract. 2. Severe prostatomegaly, Lemus catheter and balloon seen within the urinary bladder. 3. Consider further evaluation of the bladder with cystoscopy if clinically indicated. ALLERGIES: Patient has answered NKA MEDS: Active Outpatient Medications (including Supplies): Active Outpatient Medications Status 1) APIXABAN 5MG TAB [...] TWICE A DAY NEEDED FOR CONSTIPATION 6) HYDROCHLOROTHIAZIDE 12.5MG TAB TAKE ONE TABLET BY ACTIVE (S) MOUTH EVERY DAY FOR BLOOD PRESSURE 7) LIDOCAINE 5% PATCH APPLY 1 PATCH TOPICALLY EVERY DAY ACTIVE NEEDED FOR PAIN 8) METOPROLOL SUCCINATE 50MG SA TAB TAKE ONE-HALF TABLET ACTIVE BY MOUTH EVERY DAY 9) TAMSULOSIN HCL 0.4MG CAP TAKE ONE CAPSULE BY MOUTH ACTIVE EVERY EVENING FOR PROSTATE Active problems - reviewed in CPRS Active problems - Computerized Problem List is [...] - right eye, jun 2022, 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 Procedure(s) to be performed was(were) discussed with patient and verified to be correct. Patient and/or family provided with appropriate education and patient and/or family acknowledged understanding. Written informed consent obtained from the patient, using the [place] approved form. Informed consent progress note containing risks, benefits and alternatives documented. Surgical Staff: MD Kylah Staff Participation: Present for entire case Anesthesia: Intra-urethral 2% lidocaine gel, 10cc Procedure Description: Patient Position: Supine Patient prepped and draped in usual sterile fashion. Instruments 16 Fr Flexible Cystoscope with 0 Degree Lens Cystoscopy Findings: Urethra: Within normal limits Prostate: Prostate with massive trilobar hypertrophy, at least 5cm long. Bladder: Within normal limits. Mild trabeculation. No tumors, stones, or diverticuli identified. Bilateral ureteral orifices orthotopic. Prominent intravesical lobe. Complications: No immediate complications. Post-op Plan: -negative cystoscopy for tumors or stones. he does have large prostate (~200g) and obstructive voiding symptoms. Discussed surgical intervention and will start on finasteride in meantime but do not feel confident this will signficantly help his symptoms. Likely needs holep vs robotic simple. Will place [facility] care to see if he can get holep closer to home. /luis eduardo/ SHANI VENEGAS MD RESIDENT Signed: 12/04/2022 14:39 Receipt Acknowledged By: 12/05/2022 07:44 /luis eduardo/ AAMIR HUYNH MD STAFF SURGEON 12/07/2022 ADDENDUM STATUS: COMPLETED Diagnosis: Urine, cytology -- NEGATIVE FOR HIGH-GRADE UROTHELIAL CARCINOMA Acute inflammation /luis eduardo/ SHANI VENEGAS MD RESIDENT Signed: 12/07/2022 07:43 SHANI VENEGAS [facility] Dec 04, 2022 01:46 PM SURGERY NURSING NOTE: LOCAL TITLE: SURGERY CENTER NURSING NOTE STANDARD TITLE: SURGERY NURSING NOTE DATE OF NOTE: DEC 04, 2022@13:46 ENTRY DATE: DEC 04, 2022@13:46:46 AUTHOR: MANOJ BOYKIN COSIGNER: URGENCY: STATUS: COMPLETED Surgery Center Nursing Note Non-Anesthesia Procedure (i.e. cystoscopy, TRUSP, local) Post Procedure: Vitals: Time returned to unit: 1315 Second set of Vitals: Vitals: Blood Pressure: 163/77 Heart Rate: 86 Respirations: 16 Temperature: 96.1 Pulse Oximetry: 99 Dressing: n/a Pain: denies Urology/Cysto: PVR (Post-Void Residual) completed: Amount: Not applicable Discharge Plan: Written instructions given: Post-procedure instructions given Procedure specific;doctors orders.No Understanding verbalized/demonstrated: Patient Yes Discharge criteria met: Yes Time of discharge:1335 Departure mode: Wheelchair /luis eduardo/ MANOJ BOYKIN RN RN Signed: 12/04/2022 13:47 MANOJ BOYKIN [facility] Dec 04, 2022 01:24 PM SURGERY NURSING NOTE: LOCAL TITLE: SURGERY CENTER NURSING NOTE STANDARD TITLE: SURGERY NURSING NOTE DATE OF NOTE: DEC 04, 2022@13:24 ENTRY DATE: DEC 04, 2022@13:24:09 AUTHOR: MANOJ BOYKIN EXP COSIGNER: URGENCY: STATUS: COMPLETED Surgery Center Nursing Note Non-Anesthesia Procedure (i.e. cystoscopy, TRUSP, local) Pre-Procedure: Date/time in: 1226 Patient Identification: verbal, ID band on, Allergies verified Participant(s) statement of procedure: cystoscopy The patient was asked if in the last 14 days they have had new onset of any COVID-19 symptoms. They report the following: No symptoms Within the past 14 days, the patient reports no exposure to someone with a febrile/respiratory illness or someone with a known or suspected case of COVID-19 (within 6 feet for > 15 minutes). Result: Screen is negative. Accompanied by self Arrival Mode: Wheelchair Gender Age:MALE Age: 77 Allergies: Patient has answered NKA VITAL SIGNS Blood Pressure: 171/79 (12/04/2022 12:26) Heart Rate: 63 (12/04/2022 12:26) Respiratory Rate: 16 (12/04/2022 12:26) Temperature: 96.1 F [35.6 C] (12/04/2022 12:26) O2 Sat:99% (12/04/2022 12:26) Pain: 0 (12/04/2022 12:26) Fingerstick Glucose: Height: Unavailable (06/13/2022 12:46) Weight: 232.7 lb [105.55 kg] (08/28/2022 06:58) Location of Personal Belongings: Valuables: Left in Room Preprocedure Checklist: Instructed Omega on plan of care and verbalizes understanding: Yes Consent signed within 60 days: Yes Correct surgical site or wrist band marked: Yes /luis eduardo/ MANOJ BOYKIN RN RN Signed: 12/04/2022 13:26 MANOJ BOYKIN [facility] Dec 04, 2022 01:10 PM SURGERY OUTPATIENT PROCEDURE NOTE: LOCAL TITLE: OUTPATIENT SURGERY MINOR PROCEDURE NOTE STANDARD TITLE: SURGERY OUTPATIENT PROCEDURE NOTE DATE OF NOTE: DEC 04, 2022@13:10 ENTRY DATE: DEC 04, 2022@13:11:53 AUTHOR: AUSTIN GANDARA EXP COSIGNER: URGENCY: STATUS: COMPLETED Outpatient Surgery Minor Procedure Nursing Note Procedure: cysto Allergies: Patient has answered NKA Time out taken (check those that apply): Yes Confirm patient identity: Yes Procedure to be performed: Yes Site of procedure: Yes Confirm patient position: Yes Marked site confirmed: Yes Patient ID band labeled with the procedure name by operating provider Checklist confirmed by: Austin Gandara RN NPO: No Flexible endoscope used intraoperatively: Yes Model: [id number] Scope 13 Serial number: [id number] Appliance Fixer: Riya Procedure begin time: 1316 Procedure end time: 1320 Pain Scale: 0 Transport back to Outpatient Surgery via wheelchair Baseline Vitals: Blood Pressure: 128/73 (08/29/2022 08:39) Pulse: 54 (08/29/2022 08:39) Respirations: 18 (08/29/2022 08:39) Temperature: 97.6 F [36.4 C] (08/29/2022 08:39) Pulse Oximetry: 95% (08/29/2022 08:39) /tia Gandara RN REGISTERED NURSE Signed: 12/04/2022 13:20 AUSTIN GANDARA [facility]
--- OUTSIDE RECORDS SUMMARY | 2023-09-28 10:52 | XMS_ITS | Encounter Summary ---
Author Name [facility] Organization [facility] Address [address] [place] [address] Support Name Relationship Address Phone TONY CULLEN Next of Kin [address] [place] [address] SUBHASH, TONY Emergency Contact [address] [facility] [place] [address] SUBHASH ELIZABETH Next of Kin [facility] [address] [place] Insurance Providers: All historical [...] Policy Hernández's Name Patient's Relationship to Policy Hernánedz [facility] (WN) MEDICARE ADVANTAGE MCR ([facility]) Jun 08, 2019 [id number] SUBHASH,BE RNARD PATIENT [facility] (WNR) MEDICARE ADVANTAGE MCR ([facility]) Aug 06, 2013 RIVAAB [id number] SUBHASH,BE RNARD PATIENT Selected Encounter This section includes the information on record at [place] for the Encounter. Date/Time Encounter Type Encounter Description Reason Pro vider Source Jul 08, 2023 04:06 PM Outpatient Encounter EVENT (HISTORICAL) IHE Encounter Template Text not used by [place] Plan of Treatment: Future Appointments (+ 6 months) and Future Tests (+/- 45 days) The Plan of Treatment section includes future care activities for the patient from all [facility] treatmentfacilities. This section includes future appointments and future orders which are active, pending or scheduled. Future Appointments This section includes appointments that were scheduled to occur 6 months from the date of the Encounter, up to a maximum of 20 appointments. The data comes from all [facility]. Appointment Date/Time Appointment Type Appointme nt Facility Name Jul 10, 2023 12:45 PM AMBULATORY - NONE [facility] Jul 10, 2023 01:45 PM AMBULATORY - MEDICINE [facility] Aug 10, 2023 12:45 PM AMBULATORY - NONE [facility] Aug 21, 2023 12:30 PM AMBULATORY - SURGERY [facility] Aug 21, 2023 02:30 PM AMBULATORY - NONE [facility] Dec 04, 2023 01:30 PM AMBULATORY - NONE [facility] Dec 22, 2023 12:30 PM AMBULATORY - SURGERY [facility] Active, Pending, and Scheduled Orders This section includes a listing of several types of active, pending, and scheduled orders, including clinic medications orders, diagnostic test orders, procedure orders and consult orders; where the start date of the order is 45 days before the date of the Encounter or 45 days after the date of theEncounter. The data comes from all [facility]. Test Date/Time Test Type Test Details Facility Name Aug 09, 2023 12:00 AM Imaging - General Radiology Order KNEE BILATERAL, 4V STANDING (P) [facility] Lab Results: +/- 30 days of the encounter This section includes the Chemistry and Hematology Lab Results on record with [place] for the patient. Radiology Reports and Pathology Reports are provided separately, in subsequent sections. Lab Results This section contains the Chemistry/Hematology Results that were resulted 30 days before or 30 daysafter the date of the Encounter. Date/Time Source Result Type Result - Unit Interpretation Reference Range Comment Jul 10, 2023 11:50 AM [facility] BASIC METABOLIC PANEL+MG Specimen Type: PLASMA No comment entered. Ordering Provider: DESTINI JJ Report Released Date/Time: Jun 13, 2022 01:54 PM Reporting Lab: [facility] [id number] Performing Lab: [facility] [id number] CREATININE 1.2 0.7-1.2 UREA NITROGEN 23 8-26 GLUCOSE 106 H 70-100 SODIUM 140 136-145 POTASSIUM 4.2 3.5-5.1 CHLORIDE 109 H 98-107 CO2 23 22-29 CALCIUM 9.2 8.4-10.2 MAGNESIUM 2.1 1.6-2.6 ANION GAP 8 5-15 .CREAT EGFR(CKD-EPI ) 62 >60 Social History: Smoking Status (Most current) and Tobacco Use (All prior to encounter date) This section includes the most current, and the historical, smoking and tobacco- related health factors from the [place] facility where the Encounter took place. Current Smoking Status This section includes the most current smoking, or tobacco-related health factor, from the [place] facility where the Encounter took place. Date/Time Current Smoking Status Comment Facil ity Jun 13, 2022 01:15 PM VA-TOBACCO FORMER USER [facility] Tobacco Use History This section includes a history of the smoking, or tobacco-related health factors, that were collected on or before the date of the Encounter. The data comes from the [place] facility where the Encounter took place. Date/Time Smoking Status/Tobacco Use Comment F acility Jun 13, 2022 01:15 PM VA-TOBACCO QUIT 15 YRS OR MORE [facility] Apr 29, 2021 12:45 PM VA-TOBACCO FORMER USER [facility] Apr 29, 2021 12:45 PM VA-TOBACCO QUIT 15 YRS OR MORE [facility] May 23, 2019 01:02 PM VA-TOBACCO NEVER USED [facility] Apr 01, 2018 12:53 PM VA-TOBACCO FORMER USER [facility] Apr 01, 2018 12:53 PM VA-TOBACCO QUIT 15 YRS OR MORE [facility] Jun 16, 2017 08:20 AM FORMER TOBACCO USER 7Y OR GREATE R [facility] May 12, 2016 11:04 AM FORMER TOBACCO USER 7Y OR GREATE R [facility] May 24, 2015 01:56 PM FORMER TOBACCO USER 7Y OR GREATE R [facility] Aug 09, 2014 09:40 AM LIFETIME NON-TOBACCO USER [facility] October 25, 2013 09:46 AM FORMER TOBACCO USER 7Y OR GREATE R [facility] Mar 17, 2007 02:35 PM FORMER TOBACCO USER 7Y OR GREATE R [facility] Mar 04, 2006 11:27 AM FORMER TOBACCO USE >1Y [facility] Advance Directives: All historical and current Section Date Range: From patient's date of to the date document was created. This section includes ALL of a patient's completed or amended [place] Advance and Rescinded Directives. The entries below indicate that a directive exists for the patient, but an actual copy is not included with this document. The data comes from all [place] facilities. Date Advance Directives Provider Source Apr 29, 2016 CLINICAL WARNING SANGEETA ALVARES [facility] 2014 CLINICAL WARNING ISAAC DARBY [facility] Apr 01, 2005 ADVANCE DIRECTIVE VALERIE MILLAN [facility]
--- OUTSIDE RECORDS SUMMARY | 2023-09-28 10:52 | XMS_ITS | Encounter Summary ---
Author Name [facility] Organization [facility] Address [address] [place] [address] Support Name Relationship Address Phone TONY CULLEN Next of Kin [address] [place] [address] SUBHASH, TONY Emergency Contact [address] [facility] [place], [place] [phone] ELIZABETH CULLEN Next of Kin [facility]SOE [facility] [address] [place] Insurance Providers: All historical and current Section [...] Relationship to Policy Hernández [facility] ([facility]) MEDICARE ADVANTAGE MCR ([facility]) Jun 08, 2019 [id number] SUBHASH,BE RNARD PATIENT [facility] ([facility]) MEDICARE ADVANTAGE MCR ([facility]) Aug 06, 2013 [id number] SUBHASH,BE RNARD PATIENT Selected Encounter This section includes the information on record at [place] for the Encounter. Date/Time Encounter Type Encounter Description Reason Provider Source Jul 10, 2023 01:45 PM OFFICE O/P EST MOD 30 MIN PRIMARY CARE/MEDICINE ICD-10-CM M25.569 Pain in unspecified knee DESTINI JJ Encounter Template Text not used by [place] Assessments - Encounter Diagnoses This section includes the primary and secondary diagnoses documented for the Encounter. Date/Time Primary/Secondary Diagnosis Diagnosis Name Provider Source Jul 10, 2023 02:23 PM PRIMARY Pain in unspecified knee JJ,[facility] Jul 10, 2023 02:23 PM SECONDARY Benign prostatic hyperplasia with lower urinary tract [facility] Jul 10, 2023 02:23 PM SECONDARY Retinal hemorrhage, unspecified eye JJ,[facility] Jul 10, 2023 02:23 PM SECONDARY Ventricular premature depolarization JJ,[facility] Plan of Treatment: Future Appointments (+ 6 months) and Future Tests (+/- 45 days) The Plan of Treatment section includes future care activities for the patient from [facility]. This section includes future appointments and future orders which are active, pending or scheduled. Future Appointments This section includes appointments that were scheduled to occur 6 months from the date of the Encounter, up to a maximum of 20 appointments. The data comes from all [facility]. Appointment Date/Time Appointment Type Appointme nt Facility Name Aug 10, 2023 12:45 PM AMBULATORY - NONE [facility] Aug 21, 2023 12:30 PM AMBULATORY - SURGERY [facility] Aug 21, 2023 02:30 PM AMBULATORY - NONE [facility] Dec 04, 2023 01:30 PM AMBULATORY NONE [facility] Dec 22, 2023 12:30 PM AMBULATORY - SURGERY [facility] Active, Pending, and Scheduled Orders This section includes a listing of several types of active, pending, and scheduled orders, including clinic medications orders, diagnostic test orders, procedure orders and consult orders; where the start date of the order is 45 days before the date of the Encounter or 45 days after the date of theEncounter. The data comes from all [facility]. Test Date/Time Test Type Test Details Facility Name Aug 09, 2023 12:00 AM Imaging - General Radiology Order KNEE BILATERAL, 4V STANDING (P) [facility] Lab Results: +/- 30 days of the encounter This section includes the Chemistry and Hematology Lab Results on record with [facility] for the patient. Radiology Reports and Pathology Reports are provided separately, in subsequent sections. Lab Results This section contains the Chemistry/Hematology Results that were resulted 30 days before or 30 daysafter the date of the Encounter. Date/Time Source Result Type Result - Unit Interpretation Reference Range Comment Jul 10, 2023 11:50 AM [facility] BASIC METABOLIC PANEL+MG Specimen Type: PLASMA No comment entered. Ordering Provider: DESTINI JJ Report Released Date/Time: Jun 13, 2022 01:54 PM Reporting Lab: [facility] [address] [facility] [id number] Performing Lab: [facility] [id number] CREATININE 1.2 0.7-1.2 UREA NITROGEN 23 8-26 GLUCOSE 106 H 70-100 SODIUM 140 136-145 POTASSIUM 4.2 3.5-5.1 CHLORIDE 109 H 98-107 CO2 23 22-29 CALCIUM 9.2 8.4-10.2 MAGNESIUM 2.1 1.6-2.6 ANION GAP 8 5-15 .CREAT EGFR(CKD-EPI ) 62 >60 Vital Signs: All taken on the encounter date This section contains inpatient and outpatient Vital Signs collected on the date of the Encounter. Date/Time Temperature Pulse Blood Pressure Respiratory Rate SP02 Pain Height Weight Body Mass Index Source Jul 10, 2023 12:45 PM 60 /min 123/71 mm[Hg] 14 /min 98 % 6 238 lb 32 [facility] Social History: Smoking Status (Most current) and Tobacco Use (All prior to encounter date) This section includes the most current, and the historical, smoking and tobacco- related health factors from the [place] facility where the Encounter took place. Current Smoking Status This section includes the most current smoking, or tobacco-related health factor, from the [place] facility where the Encounter took place. Date/Time Current Smoking Status Comment Deandre nowak Jul 10, 2023 01:45 PM VA-TOBACCO FORMER USER [facility] Tobacco Use History This section includes a history of the smoking, or tobacco-related health factors, that were collected on or before the date of the Encounter. The data comes from the [place] facility where the Encounter took place. Date/Time Smoking Status/Tobacco Use Comment F acility Jul 10, 2023 01:45 PM VA-TOBACCO QUIT 15 YRS OR MORE [facility] Jun 13, 2022 01:15 PM VA-TOBACCO FORMER USER [facility] Jun 13, 2022 01:15 PM VA-TOBACCO QUIT [...] ALL of a patient's completed or amended [place] Advance and Rescinded Directives. The entries below indicate that a directive exists for the patient, but an actual copy is not included with this document. The data comes from all [place] facilities. Date Advance Directives Provider Source Apr 29, 2016 CLINICAL WARNING [facility] 2014 CLINICAL WARNING [facility] Apr 01, 2005 ADVANCE DIRECTIVE VALERIE MILLAN [facility] Encounter Notes: All associated encounter notes This section contains the clinical notes associated to the Encounter. Date/Time Encounter Note(s) Provider Source Jul 11, 2023 11:38 PM LETTERS: LOCAL TITLE: FOLLOW UP RESULTS LETTER STANDARD TITLE: LETTERS DATE OF NOTE: JUL 11, 2023@23:38 ENTRY DATE: JUL 11, 2023@23:38:37 AUTHOR: DESTINI JJ EXP COSIGNER: URGENCY: STATUS: COMPLETED [facility] [address] [place] [address] Jul SABRINA ASH [address] [address] Dear : I am writing to inform you of the results of the tests you had done at the [facility]. The tests below were performed and are satisfactory unless otherwise noted. - Electrolytes including sodium and potassium SODIUM 140 (07/10/23) (normal is 137-144) POTASSIUM 4.2 (07/10/23) (normal is 3.5-5.0) CHLORIDE 109 H (07/10/23) (normal is 98-107) CO2 23 (07/10/23) (normal is 22-29) UREA NITROGEN 23 (07/10/23) (normal Male is 8-26) (normal Female is 8-20) CREATININE 1.2 (07/10/23) (normal Male is 0.7-1.2) (normal Female is 0.5-1.0) GLUCOSE 106 H (07/10/23) (normal is 70-100) CALCIUM 9.2 (07/10/23) (normal is 8.4-10.2) MAGNESIUM 2.1 (07/10/23) (normal is 1.6-2.6) EGFR (01/09) 01/14/21 @ 1442 54 L CREATININE EGFR (CKD-EPI) 07/10/23 @ 1150 62 (normal is >/=60) Comments: If you have any further questions or problems, please contact our nursing staff or me at the following number: [phone] ([facility]) Sincerely, Destini Jj MD Physician DESTINI JJ [facility] Jul 10, 2023 01:51 PM INTERNAL MEDICINE NOTE: LOCAL TITLE: MEDICINE CLINIC NOTE STANDARD TITLE: INTERNAL MEDICINE NOTE DATE OF NOTE: JUL 10, 2023@13:51 ENTRY DATE: JUL 10, 2023@13:51:57 AUTHOR: DESTINI JJ EXP COSIGNER: URGENCY: STATUS: COMPLETED Nurse's notes reviewed from today. 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 # left knee OA: waiting for knee replacement. cc ortho referral done again as requested by vet. # BPH: f/u cc urology referral done again. # h/o constipaiton: takes daily metamucil and prn colace/ senna. # h/o Rt CEA / bovine patch repair in 08/2022. cont ASA, statin. # HTN: stable. 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 has been following with EP. # CKD: Cr wnl. # Obstructive sleep apnea-continue CPAP HM: - etoh: once a month - tobacco: quit 50 yrs ago. - lives alone. brother lives nearby. HPI/ROS: - his 100 yr old mom last week. - wants to renew CC referral to ortho and urology as he was not able to f/u with them. - wants compression socks and new shoes. no other concerns. Active problems - Computerized Problem List is [...] - right eye, jun 2022, sees local skip loader 18. History of carotid endarterectomy - Rt CEA and bovine patch repair, 08/2022 Allergies: Patient has answered NKA EXAM: Last Vital Signs: BP: 123/71 (07/10/2023 12:45) Heart Rate: 60 (07/10/2023 12:45) Respirations: 14 (07/10/2023 12:45)/min Temperature: 97.2 F [36.2 C] (03/13/2023 12:55) Pain: 6 (07/10/2023 12:45) BMI: BMI not available without height O2 Sat: 98% (07/10/2023 12:45) General Appearance: NAD Mental Status:alert Neck: Chest/T Spine: Cardiac:s1s2 rrr JVP: Lungs:clear b/l Abdomen: soft NT Extremities: Edema ()None ()1+ ()2+ ()3+ ()4+ Pulses ()MOLDED CANDLES WICKER ()1+ ()2+ ()3+ ()4+ Gait: NL Data/Labs: GLUCOSE: 106 H UREA NITROGEN: 23 CREATININE: 1.2 SODIUM: 140 POTASSIUM: 4.2 CHLORIDE: 109 H CO2: 23 CALCIUM: 9.2 MAGNESIUM: 2.1 ANION GAP: 8 CREATININE EGFR (CKD-EPI): 62 ( * )Patient was informed of available lab, imaging, and other study results associated with today's visit. Medication Reconciliation: Education Evaluations *Was medication education provided for NEW medications or CHANGES to medications? (including medication name, dose, route, reason for use, and potential side effects). No new medications or medication changes during this encounter. TERATOGENIC MED & CONTRACEPTION REVIEW (Optional)... = MEDICATION RECONCILIATION = Active and Recently Outpatient Medications (including Supplies): Issue Date Status Last Fill Active Outpatient Medications Refills Expiration 1) APIXABAN 5MG TAB Qty: 180 for 90 days ACTIVE (S) Issu:05-25-23 Sig: TAKE ONE TABLET BY MOUTH EVERY 12 Refills: 3 Last:08-18-23 HOURS TO TREAT AND/OR PREVENT BLOOD Expr:05-25-24 CLOTS 2) ASPIRIN 81MG EC TAB Qty: 120 for 90 ACTIVE Issu:08-28-22 days Sig: TAKE ONE TABLET BY MOUTH Refills: 0 Last:06-24-23 EVERY DAY TO PREVENT BLOOD CLOTS DO Expr:08-29-23 NOT CHEW 3) ATORVASTATIN CALCIUM 40MG TAB Qty: 90 ACTIVE (S) Issu:06-04-23 for 90 days Sig: TAKE ONE TABLET BY Refills: 3 Last:08-14-23 MOUTH AT BEDTIME FOR CHOLESTEROL Expr:06-04-24 4) DEPEND UNDERWEAR,MAXIMUM,MEN LARGE Qty: ACTIVE Issu:12-04-22 [...] DOSE. MAX 32 GRAMS PER DAY. 6) DOCUSATE NA 50MG/SENNOSIDES 8.6MG TAB ACTIVE Issu:03-13-23 Qty: 100 for 90 days Sig: TAKE 1 Refills: 3 Last:03-17-23 TABLET BY MOUTH TWICE A DAY NEEDED Expr:03-13-24 FOR CONSTIPATION 7) FINASTERIDE 5MG TAB Qty: 30 for 30 days ACTIVE (S) Issu:12-04-22 Sig: TAKE ONE TABLET BY MOUTH EVERY Refills: 3 Last:07-23-23 DAY FOR PROSTATE Expr:12-05-23 8) HYDROCHLOROTHIAZIDE 12.5MG TAB Qty: 90 ACTIVE (S) Issu:05-18-23 for 90 days Sig: TAKE ONE TABLET BY Refills: 3 Last:08-16-23 MOUTH EVERY DAY FOR BLOOD PRESSURE Expr:05-18-24 9) LIDOCAINE 5% PATCH Qty: 30 for 30 days ACTIVE Issu:07-06-23 Sig: APPLY 1 PATCH TOPICALLY EVERY DAY Refills: 0 Last:07-07-23 NEEDED FOR UP TO 12 HOURS FOR PAIN Expr:08-05-23 10) LISINOPRIL 40MG TAB Qty: 90 for 90 days ACTIVE Issu:12-11-22 Sig: TAKE ONE TABLET BY MOUTH EVERY Refills: 1 Last:06-15-23 DAY FOR HEART AND BLOOD PRESSURE Expr:12-12-23 11) METOPROLOL SUCCINATE 50MG SA TAB Qty: ACTIVE (S) Issu:12-10-22 45 for 90 days Sig: TAKE ONE-HALF Refills: 1 Last:08-15-23 TABLET BY MOUTH EVERY DAY Expr:12-11-23 12) PSYLLIUM ORAL PWD Qty: 1170 for 90 days ACTIVE Issu:03-13-23 Sig: TAKE 1 TABLESPOONFUL BY MOUTH Refills: 3 Last:03-17-23 EVERY DAY FOR REGULAR BOWEL MOVEMENTS Expr:03-13-24 13) TAMSULOSIN HCL 0.4MG CAP Qty: 90 for 90 ACTIVE Issu:04-27-23 days Sig: TAKE ONE CAPSULE BY MOUTH Refills: 2 Last:07-22-23 EVERY EVENING FOR PROSTATE Expr:04-27-24 14) VANICREAM TOP CREAM Qty: 454 for 90 ACTIVE Issu:03-13-23 days Sig: APPLY THIN LAYER TOPICALLY Refills: 3 Last:03-17-23 TWICE A DAY FOR DRY SKIN Expr:03-13-24 Issue Date Status Last Fill Inactive Outpatient Medications Refills Expiration 1) APIXABAN 5MG TAB Qty: 180 for 90 days DISCONTINUED Issu:09-02-22 Sig: TAKE ONE TABLET BY MOUTH EVERY 12 Refills: 0 Last:05-28-23 HOURS TO TREAT AND/OR PREVENT BLOOD Expr:09-03-23 CLOTS 2) ATORVASTATIN CALCIUM 40MG TAB Qty: 90 DISCONTINUED Issu:08-20-22 for 90 days Sig: TAKE ONE TABLET BY Refills: 0 Last:05-16-23 MOUTH AT BEDTIME FOR CHOLESTEROL Expr:08-21-23 3) DICLOFENAC NA 1% TOP GEL Qty: 200 for DISCONTINUED Issu:03-31-22 25 days Sig: APPLY 4 GRAMS TOPICALLY Refills: 0 Last:06-06-22 TWICE A DAY TO AFFECTED AREA FOR PAIN. Expr:04-01-23 *USE DOSE CARD IN BOX TO MEASURE DOSE. MAX 32 GRAMS PER DAY. 4) FINASTERIDE 5MG TAB Qty: 30 for 30 days DISCONTINUED Issu:12-04-22 Sig: TAKE ONE TABLET BY MOUTH EVERY Refills: 4 Last:06-04-23 DAY FOR PROSTATE Expr:12-05-23 5) HYDROCHLOROTHIAZIDE 12.5MG TAB Qty: 90 DISCONTINUED Issu:08-13-22 for 90 days Sig: TAKE ONE TABLET BY Refills: 0 Last:05-28-23 MOUTH EVERY DAY FOR BLOOD PRESSURE Expr:08-14-23 6) LIDOCAINE 5% PATCH Qty: 30 for 30 days DISCONTINUED Issu:06-09-23 Sig: APPLY 1 PATCH TOPICALLY EVERY DAY Refills: 0 Last:06-10-23 NEEDED FOR UP TO 12 HOURS FOR PAIN Expr:07-09-23 7) LIDOCAINE 5% PATCH Qty: 30 for 30 days DISCONTINUED Issu:05-04-23 Sig: APPLY 1 PATCH TOPICALLY EVERY DAY Refills: 0 Last:05-05-23 NEEDED FOR PAIN Expr:06-03-23 8) TAMSULOSIN HCL 0.4MG CAP Qty: 30 for 30 DISCONTINUED Issu:04-10-23 days Sig: TAKE ONE CAPSULE BY MOUTH Refills: 0 Last:04-13-23 EVERY EVENING FOR PROSTATE Expr:05-10-23 22 Total Medications /es/ Destini Jj MD Physician Signed: 07/10/2023 14:23 DESTINI JJ [facility] Jul 10, 2023 12:47 PM INTERNAL MEDICINE OUTPATIENT NOTE: LOCAL TITLE: MEDICINE CLINIC NURSING NOTE STANDARD TITLE: INTERNAL MEDICINE OUTPATIENT NOTE DATE OF NOTE: JUL 10, 2023@12:47 ENTRY DATE: JUL 10, 2023@12:47:56 AUTHOR: FIDEL MOGNE COSIGNER: URGENCY: STATUS: COMPLETED TYPE OF VISIT: Appointment Check In Type of appointment: In-person appointment REASON FOR VISIT: Annual check up. ALLERGIES: Patient has answered NKA VITAL SIGNS: Blood Pressure: 123/71 (07/10/2023 12:45) Pulse: 60 (07/10/2023 12:45) Respiration: 14 (07/10/2023 12:45) Temperature: 97.2 F [36.2 C] (03/13/2023 12:55) Weight: 238 lb [107.95 kg] (07/10/2023 12:45) Height: Unavailable (07/10/2023 12:45) BMI: BMI not available without height O2 Sat: 98% (07/10/2023 12:45) Pain: 6 (07/10/2023 12:45) PAIN SCREEN: Patient is not having significant pain that they wish to discuss with their provider today. MEDICATION Over the Counter/Herbal Medications: The patient states that they take some outside medications and/or herbals. Depression Screening: Perform PHQ-2 A PHQ-2 screen was performed. The score was 0 which is a negative screen for depression. Over the past two weeks, how often have you been bothered by the following problems? 1. Little interest or pleasure in doing things Not at all 2. Feeling down, depressed, or hopeless Not at all Tobacco Use Screening: The patient is a former tobacco user. The patient quit fifteen or more years ago. Nursing Annual Screening: Fall History Screen During the past 12 months, have you had any falls? Patient does not report any falls in the past 12 months. MEDICATIONS: Patient is on one of the following medication classes: Antihypertensives, Antidepressants, Antipsychotics, Diuretics, or Controlled substance medication used for pain. Script Talk Screen Are you able to read your prescription bottles with your glasses, magnifiers or other aids? Yes or patient not taking any prescriptions. Skin Screen Patient reports any current pressure ulcers, a history of pressure ulcers, or a wound from a medical assistant ob gyn or Patient is bed-confined or a wheelchair-user or Patient requires assistance to transfer/change position No, Skin Screen is Negative Home Abuse/Violence Screen Is your home free of abuse and violence? Yes MOVE! Program Screen Body Mass Index (BMI)= BMI not available without height [place]: Collection DT Specimen Test Name Result Units Ref Range 01/23/2022 14:24 BLOOD HEMOGLOBIN A1C 5.3 % 4.0 - 6.0 [place] Hgb A1C: No data available [place] Hgb A1C: No data available Point of Care Hgb A1C: POC HGB A1C____ Outpatient Nutrition Screen Body Mass Index (BMI)= BMI not available without height [place]: Collection DT Specimen Test Name Result Units Ref Range 01/23/2022 14:24 BLOOD HEMOGLOBIN A1C 5.3 % 4.0 - 6.0 [place] Hgb A1C: No data available [place] Hgb A1C: No data available Point of Care Hgb A1C: POC HGB A1C____ Is patient's BMI less than 18.5? No Does patient have swallowing, coughing, or chewing problems affecting oral intake? No Has patient experienced unplanned weight loss or gain greater than 10 pounds over the last 2 months? No Is patient's Hgb A1C (Glycosylated Hemoglobin) greater than 9.5? No Is patient receiving Total Parenteral Nutrition (TPN) or Tube Feedings? No Patient Health Education Screen BARRIERS/SPECIAL NEEDS: Physical limitations Hearing limitations PREFERRED STYLE OF LEARNING: No preference stated Client Assistive Service (ALFREDITO) Screen Does the patient require assistance with outpatient visit? No Homelessness/Food Insecurity Screen: In the past 2 months, have you been living in stable housing that you own, rent, or stay in as part of a household? Yes - Living in stable housing. Are you worried or concerned that in the next 2 months you may NOT have stable housing that you own, rent, or stay in as part of a household? No - Not worried about housing near future [facility] [place] reports the following: Within the past 12 months, you worried whether your food would run out before you got money to buy more. Never true Within the past 12 months, the food you bought just didn't last and you didn't have money to get more. Never true Food Insecurity Resources /es/ FIDEL MONGE LPN STAFF SOD STRIPPER Signed: 07/10/2023 12:51 FIDEL MONGE [facility] Jul 10, 2023 08:09 AM INTERNAL MEDICINE NOTE: LOCAL TITLE: MEDICINE CLINIC NOTE STANDARD TITLE: INTERNAL MEDICINE NOTE DATE OF NOTE: JUL 10, 2023@08:09 ENTRY DATE: JUL 10, 2023@08:09:29 AUTHOR: DESTINI JJ EXP COSIGNER: URGENCY: STATUS: COMPLETED Nurse's notes reviewed from today. 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 # left knee OA: cc re-referral done for him to get left TKR. # h/o bph/ LUTS: CC urology re-consulted as he missed the previous scheduling window for both Uro and Ortho. # foot discomfort, wants a new pair of shoes and navy compression socks. prosthetics consulted. # constipaiton: cont daily metamucil and prn colace/ senna. # h/o Rt CEA / bovine patch repair in 08/2022. cont ASA, statin as per vascular. # HTN: stable. 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 has been following with EP. # CKD: Cr wnl. # Obstructive sleep apnea-continue CPAP HM: - etoh: once a month - tobacco: quit 50 yrs ago. - lives alone HPI/ROS: - he has his usual b/l knee pain, Lt >> Rt. - He was supposed to be scheduled with CC ortho for Lt knee replacement and with urology for BPH / LUTs but missed the window to schedule and he would like to get another cc consult for both. - wants new shoes as current ones are worn out. - also wants navy compression socks. Active problems - Computerized Problem List is [...] - right eye, jun 2022, sees local skip loader 18. History of carotid endarterectomy - Rt CEA and bovine patch repair, 08/2022 Allergies: Patient has answered NKA EXAM: Last Vital Signs: BP: 123/71 (07/10/2023 12:45) Heart Rate: 60 (07/10/2023 12:45) Respirations: 14 (07/10/2023 12:45)/min Temperature: 97.2 F [36.2 C] (03/13/2023 12:55) Pain: 6 (07/10/2023 12:45) BMI: BMI not available without height O2 Sat: 98% (07/10/2023 12:45) General Appearance: NAD Mental Status:alert Neck: Chest/T Spine: Cardiac:s1s2 rrr JVP: Lungs:clear b/l Abdomen:soft NT Extremities: Edema (*)None ()1+ ()2+ ()3+ ()4+ Pulses ()MOLDED CANDLES WICKER ()1+ ()2+ ()3+ ()4+ Gait: using a cane Data/Labs: pending Medication Reconciliation: Education Evaluations *Was medication education provided for NEW medications or CHANGES to medications? (including medication name, dose, route, reason for use, and potential side effects). No new medications or medication changes during this encounter. TERATOGENIC MED & CONTRACEPTION REVIEW (Optional)... = MEDICATION RECONCILIATION = Active and Recently Outpatient Medications (including Supplies): Issue Date Status Last Fill Active Outpatient Medications Refills Expiration 1) APIXABAN 5MG TAB Qty: 180 for 90 days ACTIVE (S) Issu:05-25-23 Sig: TAKE ONE TABLET BY MOUTH EVERY 12 Refills: 3 Last:08-18-23 HOURS TO TREAT AND/OR PREVENT BLOOD Expr:05-25-24 CLOTS 2) ASPIRIN 81MG EC TAB Qty: 120 for 90 ACTIVE Issu:08-28-22 days Sig: TAKE ONE TABLET BY MOUTH Refills: 0 Last:06-24-23 EVERY DAY TO PREVENT BLOOD CLOTS DO Expr:08-29-23 NOT CHEW 3) ATORVASTATIN CALCIUM 40MG TAB Qty: 90 ACTIVE (S) Issu:06-04-23 for 90 days Sig: TAKE ONE TABLET BY Refills: 3 Last:08-14-23 MOUTH AT BEDTIME FOR CHOLESTEROL Expr:06-04-24 4) DEPEND UNDERWEAR,MAXIMUM,MEN LARGE Qty: ACTIVE Issu:12-04-22 [...] DOSE. MAX 32 GRAMS PER DAY. 6) DOCUSATE NA 50MG/SENNOSIDES 8.6MG TAB ACTIVE Issu:03-13-23 Qty: 100 for 90 days Sig: TAKE 1 Refills: 3 Last:03-17-23 TABLET BY MOUTH TWICE A DAY NEEDED Expr:03-13-24 FOR CONSTIPATION 7) FINASTERIDE 5MG TAB Qty: 30 for 30 days ACTIVE Issu:12-04-22 Sig: TAKE ONE TABLET BY MOUTH EVERY Refills: 3 Last:07-23-23 DAY FOR PROSTATE Expr:12-05-23 8) HYDROCHLOROTHIAZIDE 12.5MG TAB Qty: 90 ACTIVE (S) Issu:05-18-23 for 90 days Sig: TAKE ONE TABLET BY Refills: 3 Last:08-16-23 MOUTH EVERY DAY FOR BLOOD PRESSURE Expr:05-18-24 9) LIDOCAINE 5% PATCH Qty: 30 for 30 days ACTIVE Issu:07-06-23 Sig: APPLY 1 PATCH TOPICALLY EVERY DAY Refills: 0 Last:07-07-23 NEEDED FOR UP TO 12 HOURS FOR PAIN Expr:08-05-23 10) LISINOPRIL 40MG TAB Qty: 90 for 90 days ACTIVE Issu:12-11-22 Sig: TAKE ONE TABLET BY MOUTH EVERY Refills: 1 Last:06-15-23 DAY FOR HEART AND BLOOD PRESSURE Expr:12-12-23 11) METOPROLOL SUCCINATE 50MG SA TAB Qty: ACTIVE (S) Issu:12-10-22 45 for 90 days Sig: TAKE ONE-HALF Refills: 1 Last:08-15-23 TABLET BY MOUTH EVERY DAY Expr:12-11-23 12) PSYLLIUM ORAL PWD Qty: 1170 for 90 days ACTIVE Issu:03-13-23 Sig: TAKE 1 TABLESPOONFUL BY MOUTH Refills: 3 Last:03-17-23 EVERY DAY FOR REGULAR BOWEL MOVEMENTS Expr:03-13-24 13) TAMSULOSIN HCL 0.4MG CAP Qty: 90 for 90 ACTIVE Issu:04-27-23 days Sig: TAKE ONE CAPSULE BY MOUTH Refills: 2 Last:07-22-23 EVERY EVENING FOR PROSTATE Expr:04-27-24 14) VANICREAM TOP CREAM Qty: 454 for 90 ACTIVE Issu:03-13-23 days Sig: APPLY THIN LAYER TOPICALLY Refills: 3 Last:03-17-23 TWICE A DAY FOR DRY SKIN Expr:03-13-24 Issue Date Status Last Fill Inactive Outpatient Medications Refills Expiration 1) APIXABAN 5MG TAB Qty: 180 for 90 days DISCONTINUED Issu:09-02-22 Sig: TAKE ONE TABLET BY MOUTH EVERY 12 Refills: 0 Last:05-28-23 HOURS TO TREAT AND/OR PREVENT BLOOD Expr:09-03-23 CLOTS 2) ATORVASTATIN CALCIUM 40MG TAB Qty: 90 DISCONTINUED Issu:08-20-22 for 90 days Sig: TAKE ONE TABLET BY Refills: 0 Last:05-16-23 MOUTH AT BEDTIME FOR CHOLESTEROL Expr:08-21-23 3) DICLOFENAC NA 1% TOP GEL Qty: 200 for DISCONTINUED Issu:03-31-22 25 days Sig: APPLY 4 GRAMS TOPICALLY Refills: 0 Last:06-06-22 TWICE A DAY TO AFFECTED AREA FOR PAIN. Expr:04-01-23 *USE DOSE CARD IN BOX TO MEASURE DOSE. MAX 32 GRAMS PER DAY. 4) FINASTERIDE 5MG TAB Qty: 30 for 30 days DISCONTINUED Issu:12-04-22 Sig: TAKE ONE TABLET BY MOUTH EVERY Refills: 4 Last:06-04-23 DAY FOR PROSTATE Expr:12-05-23 5) HYDROCHLOROTHIAZIDE 12.5MG TAB Qty: 90 DISCONTINUED Issu:08-13-22 for 90 days Sig: TAKE ONE TABLET BY Refills: 0 Last:05-28-23 MOUTH EVERY DAY FOR BLOOD PRESSURE Expr:08-14-23 6) LIDOCAINE 5% PATCH Qty: 30 for 30 days DISCONTINUED Issu:06-09-23 Sig: APPLY 1 PATCH TOPICALLY EVERY DAY Refills: 0 Last:06-10-23 NEEDED FOR UP TO 12 HOURS FOR PAIN Expr:07-09-23 7) LIDOCAINE 5% PATCH Qty: 30 for 30 days DISCONTINUED Issu:05-04-23 Sig: APPLY 1 PATCH TOPICALLY EVERY DAY Refills: 0 Last:05-05-23 NEEDED FOR PAIN Expr:06-03-23 8) TAMSULOSIN HCL 0.4MG CAP Qty: 30 for 30 DISCONTINUED Issu:04-10-23 days Sig: TAKE ONE CAPSULE BY MOUTH Refills: 0 Last:04-13-23 EVERY EVENING FOR PROSTATE Expr:05-10-23 22 Total Medications /es/ Destini Jj MD Physician Signed: 07/11/2023 23:38 DESTINI JJ [facility]
--- OUTSIDE RECORDS SUMMARY | 2023-09-28 10:53 | XMS_ITS | Encounter Summary ---
Author Name [facility] Organization [facility] Address [address] [place] [address] Support Name Relationship Address Phone TONY CULLEN Next of Kin [address] [place] [address] SUBHASH, TONY Emergency Contact [address] [facility] [place] [address] SUBHASH ELIZABETH Next of Kin JOSE [facility] [address] [place] Insurance Providers: All historical and current Section [...] Patient's Relationship to Policy Hernández [facility] ([facility] MEDICARE ADVANTAGE MCR ([facility] Jun 08, 2019 [id number] SUBHASH,BE RNARD PATIENT [facility] (WN) MEDICARE ADVANTAGE MCR ([facility] Aug 06, 2013 RIVAAB [id number] SUBHASH,BE RNARD PATIENT Selected Encounter This section includes the information on record at [place] for the Encounter. Date/Time Encounter Type Encounter Description Reason Provider Source Jul 15, 2023 09:14 AM Outpatient Encounter COMMUNITY CARE CONSULT KRISTEN MORRIS Encounter Template Text not used by VA Plan of Treatment: Future Appointments (+ 6 [...] 10, 2023 12:45 PM AMBULATORY - NONE [facility] Aug 21, 2023 12:30 PM AMBULATORY - SURGERY [facility] Aug 21, 2023 02:30 PM AMBULATORY - NONE [facility] Dec 04, 2023 01:30 PM AMBULATORY - NONE [facility] Dec 22, 2023 12:30 PM AMBULATORY - SURGERY [facility] Active, Pending, and Scheduled Orders This [...] Radiology Order KNEE BILATERAL, 4V STANDING (P) [facility] Lab Results: +/- 30 days of the encounter This section includes the Chemistry and Hematology Lab Results on record with [place] for the patient. Radiology Reports and Pathology Reports are provided separately, in subsequent sections. Lab Results This section contains the Chemistry/Hematology Results that were resulted 30 days before or 30 daysafter the date of the Encounter. Date/Time Source Result Type Result - Unit Interpretation Reference Range Comment Jul 10, 2023 11:[address] [facility] BASIC METABOLIC PANEL+MG Specimen Type: PLASMA No comment entered. Ordering Provider: DESTINI JJ Report Released Date/Time: Jun 13, 2022 01:54 PM Reporting Lab: [facility] [id number] Performing Lab: [facility] [id number] CREATININE 1.2 0.7-1.2 UREA NITROGEN 23 8-26 [...] and tobacco- related health factors from the [place] facility where the Encounter took place. Current Smoking Status This section includes the most current smoking, or tobacco-related health factor, from the [place] facility where the Encounter took place. Date/Time Current Smoking Status Comment Facil ity Jul 10, 2023 01:45 PM VA-TOBACCO FORMER USER [facility] Tobacco Use History This section includes a history of the smoking, or tobacco-related health factors, that were collected on or before the date of the Encounter. The data comes from the [place] facility where the Encounter took place. Date/Time Smoking Status/Tobacco Use Comment F acility Jul 10, 2023 01:45 PM VA-TOBACCO QUIT [address] [facility] Jun 13, 2022 01:15 PM VA-TOBACCO FORMER USER [facility] Jun 13, 2022 01:15 PM VA-TOBACCO QUIT [address] [facility] Apr 29, 2021 12:45 PM VA-TOBACCO FORMER USER [facility] Apr 29, 2021 12:45 PM VA-TOBACCO QUIT [address] [facility] May 23, 2019 01:02 PM VA-TOBACCO NEVER USED [facility] Apr 01, 2018 12:53 PM VA-TOBACCO FORMER USER [facility] Apr 01, 2018 12:53 PM VA-TOBACCO QUIT [address] [facility] Jun 16, 2017 08:20 AM FORMER TOBACCO USER 7Y OR GREATE R [facility] May 12, 2016 11:04 AM FORMER TOBACCO USER 7Y OR GREATE R [facility] May 24, 2015 01:56 PM FORMER TOBACCO USER 7Y OR GREATE R [facility] Aug 09, 2014 09:40 AM LIFETIME NON-TOBACCO USER [facility] October 25, 2013 09:46 AM FORMER TOBACCO USER 7Y OR GREATE R [facility] Mar 17, 2007 02:35 PM FORMER TOBACCO USER 7Y OR GREATE R [facility] Mar 04, 2006 11:27 AM FORMER TOBACCO USE >1Y [facility] Advance Directives: All historical and current Section Date Range: From patient's date of to the date document was created. This section includes ALL of a patient's completed or amended [place] Advance and Rescinded Directives. The entries below indicate that a directive exists for the patient, but an actual copy is not included with this document. The data comes from all [place] facilities. Date Advance Directives Provider Source Apr 29, 2016 CLIN[address] WARNING SANGEETA ALVARES [facility] 2014 CLINICAL WARNING ISAAC DARBY [facility] Apr 01, 2005 ADVANCE DIRECTIVE VALERIE MILLAN [facility] Encounter Notes: All associated encounter notes This section contains the clinical notes associated to the Encounter. Date/Time Encounter Note(s) Provider Source Jul 15, 2023 09:14 AM NONVA NOTE: LOCAL TITLE: COMMUNITY CARE-CARE COORDINATION PLAN NOTE STANDARD TITLE: NONVA NOTE DATE OF NOTE: JUL 15, 2023@09:14 ENTRY DATE: JUL 15, 2023@09:14:22 AUTHOR: KRISTEN MORRIS EXP COSIGNER: URGENCY: STATUS: COMPLETED Community Care Consult: UROLOGY Consult No: [id number] Chief Complaint: BPH follow up at [facility] Patient Admitted? No Level of Care Coordination Moderate Care Coordination was determined from: Chart Review Facility Community Care Office Contact Care Coordination Point of Contact: Kristen Morris RN Services: Basic Care Coordination Services Monitoring and coordination of Rehab/PT Services Direct communication to referring provider Care management, if appropriate Plan: to schedule and attend appt. Records will be reviewed by clinical staff and future needs/updated plan of care determined at that time. /luis eduardo/ RACHAEL Dietrich, RN RN Liquor Tester Signed: 07/15/2023 09:[address] [facility]
--- OUTSIDE RECORDS SUMMARY | 2023-09-28 10:54 | XMS_ITS | Encounter Summary ---
Author Name [facility] Organization [facility] Address [address] [place] [address] Support Name Relationship Address Phone TONY CULLEN Next of Kin [address] [place] [address] SUBHASH, TONY Emergency Contact [address] [place] [address] SUBHASH ELIZABETH Next of Kin JOSE [facility] [address] [place] Insurance Providers: All historical and current Section [...] Patient's Relationship to Policy Hernández [facility]ARE OF [facility] (WN) MEDICARE ADVANTAGE MCR ([facility]) Jun 08, 2019 [id number] [phone] SUBHASH,BE RNARD PATIENT [facility] OF [facility] (WN) MEDICARE ADVANTAGE MCR ([facility]) Aug 06, 2013 RIVAAB [id number] SUBHASH,BE RNARD PATIENT Selected Encounter This section includes the information on record at [place] for the Encounter. Date/Time Encounter Type Encounter Description Reason Pro vider Source Jul 24, 2023 04:26 PM Outpatient Encounter COMMUNITY CARE CONSULT IHE Encounter Template Text not used by [...] comes from all [facility]. Appointment Date/Time Appointment Type Appointme nt Facility Name Aug 10, 2023 12:45 PM [facility] Aug 21, 2023 12:30 PM AMBULATORY - SURGERY [facility] Aug 21, 2023 02:30 PM AMBUL[facility]ORY - NONE [facility] Dec 04, 2023 01:30 PM [facility]ONE [facility] Dec 22, 2023 12:30 PM AMBULATORY - SURGERY [facility] Jan 21, 2024 11:00 AM AMBULATORY - MEDICINE [facility] Jan 21, 2024 12:45 PM AMBULATORY - MEDICINE [facility] Jan 21, 2024 01:00 PM AMBULATORY - MEDICINE [facility] Active, Pending, and Scheduled Orders This section includes a listing of several types of active, pending, and scheduled orders, including clinic medications orders, diagnostic test orders, procedure orders and consult orders; where the start date of the order is 45 days before the date of the Encounter or 45 days after the date of theEncounter. The data comes from all [facility]. Test Date/Time Test Type Test Details Facility Name Aug 09, 2023 12:00 AM Imaging - General Radiology Order KNEE BILATERAL, 4V STANDING (P) [facility] Lab Results: +/- 30 days of the encounter This section includes the Chemistry and Hematology Lab Results on record with [place] for the patient. Radiology Reports and Pathology Reports are provided separately, in subsequent sections. Lab Results This section contains the Chemistry/Hematology Results that were resulted 30 days before or 30 daysafter the date of the Encounter. Date/Time Source Result Type Result - Unit Interpretation Reference Range Comment Jul 10, 2023 11:50 AM [facility] BASIC METABOLIC PANEL+MG Specimen Type: PLASMA No comment entered. Ordering Provider: DESTINI JJ Report Released Date/Time: Jun 13, 2022 01:54 PM Reporting Lab: [facility] [id number] Performing Lab: [facility] [id number] CREATININE 1.2 0.7-1.2 UREA NITROGEN 23 8-26 [...] and tobacco- related health factors from the [place] facility where the Encounter took place. Current Smoking Status This section includes the most current smoking, or tobacco-related health factor, from the [place] facility where the Encounter took place. Date/Time Current Smoking Status Comment Facil ity Jul 10, 2023 01:45 PM VA-TOBACCO FORMER USER [facility] Tobacco Use History This section includes a history of the smoking, or tobacco-related health factors, that were collected on or before the date of the Encounter. The data comes from the [place] facility where the Encounter took place. Date/Time Smoking Status/Tobacco Use Comment F acility Jul 10, 2023 01:45 PM VA-TOBACCO QUIT 15 YRS OR MORE [facility] Jun 13, 2022 01:15 PM VA-TOBACCO FORMER USER [facility] Jun 13, 2022 01:15 PM VA-TOBACCO QUIT 15 YRS OR MORE [facility] Apr 29, 2021 12:45 PM VA-TOBACCO FORMER USER [facility] Apr 29, 2021 12:45 PM VA-TOBACCO QUIT 15 YRS OR MORE [facility] May 23, 2019 01:02 PM VA-TOBACCO NEVER USED [facility] Apr 01, 2018 12:53 PM VA-TOBACCO FORMER USER [facility] Apr 01, 2018 12:53 PM VA-TOBACCO QUIT 15 YRS OR MORE [facility] Jun 16, 2017 08:20 AM FORMER TOBACCO USER 7Y OR GREATE R [facility] May 12, 2016 11:04 AM FORMER TOBACCO USER 7Y OR GREATE R [facility] May 24, 2015 01:56 PM FORMER TOBACCO USER 7Y OR GREATE R [facility] Aug 09, 2014 09:40 AM LIFETIME NON-TOBACCO USER [facility] October 25, 2013 09:46 AM FORMER TOBACCO USER 7Y OR GREATE R [facility] Mar 17, 2007 02:35 PM FORMER TOBACCO USER 7Y OR GREATE R [facility] Mar 04, 2006 11:27 AM FORMER TOBACCO USE >1Y [facility] Advance Directives: All historical and current Section Date Range: From patient's date of to the date document was created. This section includes ALL of a patient's completed or amended [place] Advance and Rescinded Directives. The entries below indicate that a directive exists for the patient, but an actual copy is not included with this document. The data comes from all [place] facilities. Date Advance Directives Provider Source Apr 29, 2016 CLINICAL WARNING SANGEETA ALVARES [facility] 2014 CLINICAL WARNING ISAAC DARBY [facility] Apr 01, 2005 ADVANCE DIRECTIVE VALERIE MILLAN [facility] Encounter Notes: All associated encounter notes This section contains the clinical notes associated to the Encounter. Date/Time Encounter Note(s) Provider Source Jul 24, 2023 04:26 PM NONVA NOTE: LOCAL TITLE: COMMUNITY CARE PRE-AUTH LETTER (AUTOPRINT) STANDARD TITLE: NONVA NOTE DATE OF NOTE: JUL 24, 2023@16:26 ENTRY DATE: JUL 24, 2023@16:27 AUTHOR: SHYAM OSWALD COSIGNER: URGENCY: STATUS: COMPLETED Jul SABRINA CULLEN [address] [place] [address] Dear SABRINA CULLEN, Your VA provider has referred you to a provider within the community for care. Your medical care for ORTHOPEDIC has been authorized with the community care provider listed below. DO NOT REPORT TO THE [place] MEDICAL VIRGILINA Provider info: Care has been approved for the following vendor: Office name, address, and phone number: [facility] [address] [place] [address] Please contact the identified provider to schedule your community appointment. If you need assistance with this appointment, please call your facility community care office [facility] Office of Community Care at [phone] during the hours of 8:30AM - 3:00PM. Please follow up with your local [facility] community care office once this is scheduled. This step is needed to ensure your referral duration is maximized and the [place] has accurate referral information for billing purposes. Authorization Number: [id number] Referral Issue Date: Jul Expiration Date: Jan (subject to change based on first appointment) If you are unable to schedule this appointment or the appointment is no longer needed, please contact the community provider above for notification/rescheduling and then call the [facility] Office of Community Care at [phone] during the hours of 8:30AM - 3:00PM. If you need additional care/services not mentioned above or your authorization has and additional care is needed, please contact your primary care provider for a new referral. To review all care/service(s) approved under your referral, please go to the following link: [employer] [email or web address]) Co-Payments: If you are required to pay a VA co-payment, you will be billed by the VA for each authorized visit that you attend. However, you are NOT REQUIRED to make co-payments to a community provider. Thank you for the opportunity to serve you. Sincerely, [place] Community Care (DEVON) /luis eduardo/ SHYAM OSWALD Advanced MSA Signed: 07/24/2023 16:30 SHYAM OSWALD [facility]
--- OUTSIDE RECORDS SUMMARY | 2023-09-28 10:54 | XMS_ITS | Encounter Summary ---
Author Name [facility] Organization Department of [facility] Address [address] [place] [address] Support Name Relationship Address Phone SUBHASHTONY RICHARDSON Next of Kin [address] [place] [address] SUBHASH, TONY Emergency Contact [address] [facility] [place] [address] SUBHASH ELIZABETH Next of Kin JOSE [facility] [address] Insurance Providers: All historical and current Section [...] Patient's Relationship to Policy Hernández [facility] (WN) MEDICARE ADVANTAGE MCR ([facility]) Jun 08, 2019 [id number] SUBHASH,BE RNARD PATIENT [facility] (WN) MEDICARE ADVANTAGE MCR ([facility]) Aug 06, 2013 RIVAAB [id number] SUBHASH,BE RNARD PATIENT Selected Encounter This section includes the information on record at [place] for the Encounter. Date/Time Encounter Type Encounter Description Reason Pro vider Source Jul 17, 2023 09:46 AM Outpatient Encounter COMMUNITY CARE CONSULT IHE Encounter [...] 20 appointments. The data comes from all [facility]. Appointment Date/Time Appointment Type Appointme nt Facility Name Aug 10, 2023 12:45 PM AMBULATORY - NONE [facility] Aug 21, 2023 12:30 PM AMBULATORY - SURGERY [facility] Aug 21, 2023 02:30 PM AMBULATORY - NONE [facility] Dec 04, 2023 01:30 PM AMBULATORY - NONE [facility] Dec 22, 2023 12:30 PM AMBULATORY - SURGERY [facility] Active, Pending, and Scheduled Orders This section includes a listing of several types of active, pending, and scheduled orders, including clinic medications orders, diagnostic test orders, procedure orders and consult orders; where the start date of the order is 45 days before the date of the Encounter or 45 days after the date of theEncounter. The data comes from all [facility]. Test Date/Time Test Type Test Details Facility Name Aug 09, 2023 12:00 AM Imaging - General Radiology Order KNEE BILATERAL, 4V STANDING (P) [facility] Lab Results: +/- 30 days of the encounter This section includes the Chemistry and Hematology Lab Results on record with [place] for the patient. Radiology Reports and Pathology Reports are provided separately, in subsequent sections. Lab Results This section contains the Chemistry/Hematology Results that were resulted 30 days before or 30 daysafter the date of the Encounter. Date/Time Source Result Type Result - Unit Interpretation Reference Range Comment Jul 10, 2023 11:50 AM [facility] BASIC METABOLIC PANEL+MG Specimen Type: PLASMA No comment entered. Ordering Provider: DESTINI JJ Report Released Date/Time: Jun 13, 2022 01:54 PM Reporting Lab: [facility] [id number] Performing Lab: [facility] [id number] CREATININE 1.2 0.7-1.2 UREA NITROGEN 23 8-26 [...] and tobacco- related health factors from the [place] facility where the Encounter took place. Current Smoking Status This section includes the most current smoking, or tobacco-related health factor, from the [place] facility where the Encounter took place. Date/Time Current Smoking Status Comment Facil ity Jul 10, 2023 01:45 PM VA-TOBACCO FORMER USER [facility] Tobacco Use History This section includes a history of the smoking, or tobacco-related health factors, that were collected on or before the date of the Encounter. The data comes from the [place] facility where the Encounter took place. Date/Time Smoking Status/Tobacco Use Comment F acility Jul 10, 2023 01:45 PM VA-TOBACCO QUIT 15 YRS OR MORE [facility] Jun 13, 2022 01:15 PM VA-TOBACCO FORMER USER [facility] Jun 13, 2022 01:15 PM VA-TOBACCO QUIT 15 YRS OR MORE [facility] Apr 29, 2021 12:45 PM VA-TOBACCO FORMER USER [facility] Apr 29, 2021 12:45 PM VA-TOBACCO QUIT 15 YRS OR MORE [facility] May 23, 2019 01:02 PM VA-TOBACCO NEVER USED [facility] Apr 01, 2018 12:53 PM VA-TOBACCO FORMER USER [facility] Apr 01, 2018 12:53 PM VA-TOBACCO QUIT 15 YRS OR MORE [facility] Jun 16, 2017 08:20 AM FORMER TOBACCO USER 7Y OR GREATE R [facility] May 12, 2016 11:04 AM FORMER TOBACCO USER 7Y OR GREATE R [facility] May 24, 2015 01:56 PM FORMER TOBACCO USER 7Y OR GREATE R [facility] Aug 09, 2014 09:40 AM LIFETIME NON-TOBACCO USER [facility] October 25, 2013 09:46 AM FORMER TOBACCO USER 7Y OR GREATE R [facility] Mar 17, 2007 02:35 PM FORMER TOBACCO USER 7Y OR GREATE R [facility] Mar 04, 2006 11:27 AM FORMER TOBACCO USE >1Y [facility] Advance Directives: All historical and current Section Date Range: From patient's date of to the date document was created. This section includes ALL of a patient's completed or amended [place] Advance and Rescinded Directives. The entries below indicate that a directive exists for the patient, but an actual copy is not included with this document. The data comes from all [place] facilities. Date Advance Directives Provider Source Apr 29, 2016 CLINICAL WARNING GIORGIOSANGEETA EAANIKARENÉE [facility] 2014 CLINICAL WARNING ISAAC DARBY [facility] Apr 01, 2005 ADVANCE DIRECTIVE VALERIE MILLANShannon Tam [facility] Encounter Notes: All associated encounter notes This section contains the clinical notes associated to the Encounter. Date/Time Encounter Note(s) Provider Source Jul 17, 2023 09:46 AM NONVA NOTE: LOCAL TITLE: COMMUNITY CARE PRE-AUTH LETTER (AUTOPRINT) STANDARD TITLE: NONVA NOTE DATE OF NOTE: JUL 17, 2023@09:46 ENTRY DATE: JUL 17, 2023@09:46:34 AUTHOR: VERA LOJA COSIGNER: URGENCY: STATUS: COMPLETED Jul SABRINA CULLEN [id number] [place] [address] Dear SABRINA CULLEN, Your VA provider has referred you to a provider within the community for care. Your medical care for UROLOGY has been authorized with the community care provider listed below. DO NOT REPORT TO THE [facility] Provider info: Care has been approved for the following vendor: Office name, address, and phone number: [facility] [address] [place] [address] PH: [phone] Please contact the identified provider to schedule your community appointment. If you need assistance with this appointment, please call your facility community care office [facility] Office of Community Care at [phone] during the hours of 8:30AM - 3:00PM. Please follow up with your local [facility] community care office once this is scheduled. This step is needed to ensure your referral duration is maximized and the [place] has accurate referral information for billing purposes. Authorization Number: [id number] Referral Issue Date: Jul Expiration Date: Jan (subject to change based on first appointment) If you are unable to schedule this appointment or the appointment is no longer needed, please contact the community provider above for notification/rescheduling and then call the [facility] Office of Community Care at [phone] during the hours of 8:30AM - 3:00PM. If you need additional care/services not mentioned above or your authorization has and additional care is needed, please contact your primary care provider for a new referral. To review all care/service(s) approved under your referral, please go to the following link: [employer]) Co-Payments: If you are required to pay a VA co-payment, you will be billed by the [place] for each authorized visit that you attend. However, you are NOT REQUIRED to make co-payments to a community provider. Thank you for the opportunity to serve you. Sincerely, [place] Community Care (VACC) /luis eduardo/ VERA ARCEO Signed: 07/17/2023 09:47 VERA LOJA [facility]
--- OUTSIDE RECORDS SUMMARY | 2023-09-28 10:54 | XMS_ITS | Encounter Summary ---
Author Name [facility] Organization [facility] Address [address] [place] [address] Support Name Relationship Address Phone TONY CULLEN Next of Kin [address] [place] [address] SUBHASH, TONY Emergency Contact [address] [facility] [place] [address] SUBHASH ELIZABETH Next of Kin JOSE [facility] [address] [place] Insurance Providers: [...] to Policy Hernández [facility] ([facility]) MEDICARE ADVANTAGE MCR ([facility]) Jun 08, 2019 [id number] [phone] SUBHASH,BE RNARD PATIENT [facility] ([facility]) MEDICARE ADVANTAGE MCR ([facility]) Aug 06, 2013 RIVAAB [id number] SUBHASH,BE RNARD PATIENT Selected Encounter This section includes the information on record at MD for the Encounter. Date/Time Encounter Type Encounter Description Reason Provider Source Jul 22, 2023 08:08 AM Outpatient Encounter COMMUNITY CARE CONSULT KRISTEN [...] 20 appointments. The data comes from all [facility]. Appointment Date/Time Appointment Type Appointme nt Facility Name Aug 10, 2023 12:45 PM AMBULATORY - NONE [facility] Aug 21, 2023 12:30 PM AMBULATORY - SURGERY [facility] Aug 21, 2023 02:30 PM AMBULATORY - NONE [facility] Dec 04, 2023 01:30 PM AMBULATORY - NONE [facility] Dec 22, 2023 12:30 PM AMBULATORY - SURGERY [facility] Active, Pending, and Scheduled Orders This section includes a listing of several types of active, pending, and scheduled orders, including clinic medications orders, diagnostic test orders, procedure orders and consult orders; where the start date of the order is 45 days before the date of the Encounter or 45 days after the date of theEncounter. The data comes from all [facility]. Test Date/Time Test Type Test Details Facility Name Aug 09, 2023 12:00 AM Imaging - General Radiology Order KNEE BILATERAL, 4V STANDING (P) [facility] Lab Results: +/- 30 days of the encounter This section includes the Chemistry and Hematology Lab Results on record with MD for the patient. Radiology Reports and Pathology Reports are provided separately, in subsequent sections. Lab Results This section contains the Chemistry/Hematology Results that were resulted 30 days before or 30 daysafter the date of the Encounter. Date/Time Source Result Type Result - Unit Interpretation Reference Range Comment Jul 10, 2023 11:50 AM [facility] BASIC METABOLIC PANEL+MG Specimen Type: PLASMA No comment entered. Ordering Provider: DESTINI JJ Report Released Date/Time: Jun 13, 2022 01:54 PM Reporting Lab: [facility] [id number] Performing Lab: [facility] [id number] CREATININE 1.2 0.7-1.2 UREA NITROGEN 23 8-26 [...] and tobacco- related health factors from the MD facility where the Encounter took place. Current Smoking Status This section includes the most current smoking, or tobacco-related health factor, from the MD facility where the Encounter took place. Date/Time Current Smoking Status Comment Facil ity Jul 10, 2023 01:45 PM VA-TOBACCO FORMER USER [facility] Tobacco Use History This section includes a history of the smoking, or tobacco-related health factors, that were collected on or before the date of the Encounter. The data comes from the MD facility where the Encounter took place. Date/Time Smoking Status/Tobacco Use Comment F acility Jul 10, 2023 01:45 PM VA-TOBACCO QUIT 15 YRS OR MORE [facility] Jun 13, 2022 01:15 PM VA-TOBACCO FORMER USER [facility] Jun 13, 2022 01:15 PM VA-TOBACCO QUIT 15 YRS OR MORE [facility] Apr 29, 2021 12:45 PM VA-TOBACCO FORMER USER [facility] Apr 29, 2021 12:45 PM VA-TOBACCO QUIT 15 YRS OR MORE [facility] May 23, 2019 01:02 PM VA-TOBACCO NEVER USED [facility] Apr 01, 2018 12:53 PM VA-TOBACCO FORMER USER [facility] Apr 01, 2018 12:53 PM VA-TOBACCO QUIT 15 YRS OR MORE [facility] Jun 16, 2017 08:20 AM FORMER TOBACCO USER 7Y OR GREATE R [facility] May 12, 2016 11:04 AM FORMER TOBACCO USER 7Y OR GREATE R [facility] May 24, 2015 01:56 PM FORMER TOBACCO USER 7Y OR GREATE R [facility] Aug 09, 2014 09:40 AM LIFETIME NON-TOBACCO USER [facility] October 25, 2013 09:46 AM FORMER TOBACCO USER 7Y OR GREATE R [facility] Mar 17, 2007 02:35 PM FORMER TOBACCO USER 7Y OR GREATE R [facility] Mar 04, 2006 11:27 AM FORMER TOBACCO USE >1Y [facility] Advance Directives: All historical and current Section Date Range: From patient's date of to the date document was created. This section includes ALL of a patient's completed or amended MD Advance and Rescinded Directives. The entries below indicate that a directive exists for the patient, but an actual copy is not included with this document. The data comes from all MD facilities. Date Advance Directives Provider Source Apr 29, 2016 CLINICAL WARNING SANGEETA ALVARES [facility] 2014 CLINICAL WARNING ISAAC DARBY [facility] Apr 01, 2005 ADVANCE DIRECTIVE VALERIE MILLAN [facility] Encounter Notes: All associated encounter notes This section contains the clinical notes associated to the Encounter. Date/Time Encounter Note(s) Provider Source Jul 22, 2023 08:08 AM NONVA NOTE: LOCAL TITLE: COMMUNITY CARE-CARE COORDINATION PLAN NOTE STANDARD TITLE: NONVA NOTE DATE OF NOTE: JUL 22, 2023@08:08 ENTRY DATE: JUL 22, 2023@08:08:33 AUTHOR: KRISTEN MORRIS EXP COSIGNER: URGENCY: STATUS: COMPLETED Community Care Consult: ORTHO SURG Consult No: [id number] Chief Complaint: Pain in left Knee Patient Admitted? No Level of Care Coordination [...] time. /luis eduardo/ RACHAEL Dietrich, RN RN Building Carpenter Signed: 07/22/2023 08:10 KRISTEN MORRIS [facility]
--- OUTSIDE RECORDS SUMMARY | 2023-09-28 10:55 | XMS_ITS | Encounter Summary ---
Author Name [facility] Address [address] [place] [address] Support Name Relationship Address Phone TONY CULLEN Next of Kin [address] [place], [place] [address] SUBHASH TONY Emergency Contact [address] [place], [place] [id number] ELIZABETH CULLEN Next of Kin [facility] [address] [place] Insurance Providers: All historical and current Section [...] Patient's Relationship to Policy Hernández [facility] ([facility]) MEDICARE ADVANTAGE MCR ([facility]) Jun 08, 2019 [id number] SUBHASH,BE RNARD PATIENT [facility] ([facility]) MEDICARE ADVANTAGE MCR ([facility]) Aug 06, 2013 RIVAAB [id number] SUBHASH,BE RNARD PATIENT Selected Encounter This section includes the information on record at [place] for the Encounter. Date/Time Encounter Type Encounter Description Reason Provider Source Aug 21, 2023 12:30 PM OFF/OP EST OCTOBER X REQ PHY/QHP AUDIOLOGY ICD-10-CM H90.3 Sensorineural hearing loss, bilateral [facility] RICK IHE Encounter Template Text not used by [facility] Assessments - Encounter Diagnoses This section includes the primary and secondary diagnoses documented for the Encounter. Date/Time Primary/Secondary Diagnosis Diagnosis Name Provider Source Aug 21, 2023 01:07 PM PRIMARY Sensorineural hearing loss, bilateral ODALIS ARMENTA [facility] Aug 21, 2023 01:07 PM SECONDARY Encntr for exam of ears and hearing w oth abnormal findings ODALIS ARMENTA [facility] Aug 21, 2023 01:07 PM SECONDARY Encounter for fitting and adjustment of hearing aid ODALIS ARMENTA [facility] Aug 21, 2023 01:07 PM SECONDARY Impacted cerumen, right ear LUCIEN ARMENTAI [place] [facility] Aug 21, 2023 01:07 PM SECONDARY Tinnitus, bilateral [facility] Destini [facility] Plan of Treatment: Future Appointments (+ 6 months) and Future Tests (+/- 45 days) The Plan of Treatment section includes future care activities for the patient from all [place] [facility]. This section includes future appointments and future orders which are active, pending or scheduled. Future Appointments This section includes appointments that were scheduled to occur 6 months from the date of the Encounter, up to a maximum of 20 appointments. The data comes from all [facility]. Appointment Date/Time Appointment Type Appointme nt Facility Name Dec 04, 2023 01:30 PM [facility] Dec 22, 2023 12:30 PM AMBULATORY - SURGERY [facility] Jan 21, 2024 11:00 AM AMBULATORY - MEDICINE [facility] Jan 21, 2024 12:45 PM AMBULATORY - MEDICINE [facility] Jan 21, 2024 01:00 PM AMBULATORY - MEDICINE [facility] Active, Pending, and Scheduled Orders This section includes a listing of several types of active, pending, and scheduled orders, including clinic medications orders, diagnostic test orders, procedure orders and consult orders; where the start date of the order is 45 days before the date of the Encounter or 45 days after the date of theEncounter. The data comes from all [facility]. Test Date/Time Test Type Test Details Facility Name Aug 09, 2023 12:00 AM Imaging - General Radiology Order KNEE BILATERAL, 4V STANDING (P) [facility] Sep 09, 2023 12:00 AM Laboratory - Chemi stry Order HEMOGLOBIN A1C BLOOD SP [facility] Sep 09, 2023 12:00 AM Laboratory - Chemi stry Order BASIC METABOLIC PANEL+MG PLASMA [facility] Sep 09, 2023 12:00 AM Laboratory - Chemi stry Order LIPID PANEL,NON-FASTING PLASMA [facility] Sep 11, 2023 10:36 AM Consult Order COMMUNITY CARE-OPHTHALMOLOGY Cons Variety Saw Operator's Choice [facility] Social History: Smoking Status (Most current) and Tobacco Use (All prior to encounter date) This section includes the most current, and the historical, smoking and tobacco- related health factors from the [facility] where the Encounter took place. Current Smoking Status This section includes the most current smoking, or tobacco-related health factor, from the [place] facility where the Encounter took place. Date/Time Current Smoking Status Comment Facil ity Jul 10, 2023 01:45 PM VA-TOBACCO FORMER USER [facility] Tobacco Use History This section includes a history of the smoking, or tobacco-related health factors, that were collected on or before the date of the Encounter. The data comes from the [place] facility where the Encounter took place. Date/Time Smoking Status/Tobacco Use Comment F acility Jul 10, 2023 01:45 PM VA-TOBACCO QUIT 15 YRS OR MORE [facility] Jun 13, 2022 01:15 PM VA-TOBACCO FORMER USER [facility] Jun 13, 2022 01:15 PM VA-TOBACCO QUIT 15 YRS OR MORE [facility] Apr 29, 2021 12:45 PM VA-TOBACCO FORMER USER [facility] Apr 29, 2021 12:45 PM VA-TOBACCO QUIT 15 YRS OR MORE [facility] May 23, 2019 01:02 PM VA-TOBACCO NEVER USED [facility] Apr 01, 2018 12:53 PM VA-TOBACCO FORMER USER [facility] Apr 01, 2018 12:53 PM VA-TOBACCO QUIT 15 YRS OR MORE [facility] Jun 16, 2017 08:20 AM FORMER TOBACCO USER 7Y OR GREATE R [facility] May 12, 2016 11:04 AM FORMER TOBACCO USER 7Y OR GREATE R [facility] May 24, 2015 01:56 PM FORMER TOBACCO USER 7Y OR GREATE R [facility] Aug 09, 2014 09:40 AM LIFETIME NON-TOBACCO USER [facility] October 25, 2013 09:46 AM FORMER TOBACCO USER 7Y OR GREATE R [facility] Mar 17, 2007 02:35 PM FORMER TOBACCO USER 7Y OR GREATE R [facility] Mar 04, 2006 11:27 AM FORMER TOBACCO USE >1Y [facility] Advance Directives: All historical and current Section Date Range: From patient's date of to the date document was created. This section includes ALL of a patient's completed or amended [place] Advance and Rescinded Directives. The entries below indicate that a directive exists for the patient, but an actual copy is not included with this document. The data comes from all [place] facilities. Date Advance Directives Provider Source Apr 29, 2016 CLINICAL WARNING SANGEETA ALVARES [facility] 2014 CLINICAL WARNING ISAAC DARBY KATIA BAILEY [facility] Apr 01, 2005 ADVANCE DIRECTIVE YANAVALERIE BOOKERCRISTHIAN Yonatan [facility] Encounter Notes: All associated encounter notes This section contains the clinical notes associated to the Encounter. Date/Time Encounter Note(s) Provider Source Aug 21, 2023 12:40 PM AUDIOLOGY NOTE: LOCAL TITLE: AUDIOLOGY CLINIC NOTE STANDARD TITLE: AUDIOLOGY NOTE DATE OF NOTE: AUG 21, 2023@12:40 ENTRY DATE: AUG 21, 2023@12:40:40 AUTHOR: CIARA RICK EXP COSIGNER: URGENCY: STATUS: COMPLETED DIAGNOSIS: Encounter for fitting and adjustment of hearing aids Sensorineural loss, bilateral Tinnitus, bilateral The is Service Connected for Hearing Loss / Tinnitus. REASON FOR VISIT: HEARING EVALUATION AND HEARING AID SERVICE DURATION OF VISIT: 60 MINUTES LOCATION OF APPOINTMENT: 2S, [place] [address] [place] was unaccompanied. HISTORY: The was last seen in this clinic on 05/19/2023. The is an experienced hearing aid user. [place] was seen in the clinic today for a comprehensive audiologic evaluation AND hearing aid service. arrived with complaint that he got a new phone and has not been able to get it connected to his hearing aids. PATIENT DENIED: -Vertigo/Dizziness/Imbalan ce -Otorrhea -Otalgia -Aural Fullness -Otosurgery -Recent significant changes to medical history since his last hearing exam: Head Trauma, Stroke, Heart Attack, Chemotherapy PROCEDURES: OTOSCOPY: Right Ear: Cerumen impaction Left Ear: Clear of excessive cerumen -- Cerumen Removed by Nurse. Normal anatomy post-removal. TYMPANOMETRY: RIGHT EAR: Type A Volume: Normal LEFT EAR: Type A Volume: Normal AUDIOMETRICS: Pure tone thresholds (air & bone conduction) and speech testing were completed bilaterally. Transducer: Insert phones Reliability: Good -- See Audiogram under TOOLS --> SPECIALTY CARE PSL --> AUDIOLOGY --> AUDIOGRAM DISPLAY or see TRI Database WORD RECOGNITION: Recorded, word list RIGHT EAR: 88% Level: *90 dB HL LEFT EAR: 84% Level: *90 dB HL SUMMARY: Today's audiogram showed hearing has slightly declined compared to the last evaluation. HEARING AIDS: 12/17/22 [place] [id number] N/A [address] 09/27/22 SON[place] PHONAK AUDEO L90-RL KATHYA [id number] R [address] 09/27/22 [place] PHONAK AUDEO L90-RL KATHYA [id number] L [address] *Backups: 12/25/21 [place] SELECT [id number] N/A [address] 09/03/21 [place] X [id number] L [address] Pending [place] [id number] N/A [address] 01/05/21 SONOVA PHONAK PILOTONE II [id number] N/A [address] 09/07/19 SON[place] PHONAK COMPILOT II [id number] N/A [address] 08/25/19 [place] PHONAK AUDEO [id number] KATHYA [id number] R [address] 08/25/19 S[place] PHONAK AUDEO [id number] KATHYA [id number] L [address] 11/22/15 PHONAK AUDEO V90-312 KATHYA [id number] R [address] 11/22/15 [place] [id number] N/A [address] 11/22/15 PHONAK AUDEO V90-312 KATHYA [id number] L [address] HEARING AID SERVICE: - Hearing aids cleaned/checked. - Changed wax guards and removed debris from microphone ports. - Hearing aids programmed to today's audiogram. Updated firmware, datalog showed average use was 15 hours/day. - Listening check revealed good sound quality. - Paired to 's phone PLAN: 1. [place] will follow up in audiology as needed. PATIENT IS IN AGREEMENT WITH THIS PLAN. /luis eduardo/ Godwin Badillo Chief, Audiology Signed: 08/21/2023 13:49 CIARA RICK [facility] Aug 21, 2023 12:30 PM AUDIOLOGY NOTE: LOCAL TITLE: AUDIOLOGY CLINIC NURSING NOTE STANDARD TITLE: AUDIOLOGY NOTE DATE OF NOTE: AUG 21, 2023@12:30 ENTRY DATE: AUG 21, 2023@13:22:18 AUTHOR: ODALIS ARMENTA EXP COSIGNER: URGENCY: STATUS: COMPLETED Reason for visit: Examination of hearing. Cerumen removal. Effusion (drainage) in ear canals: No Recent Otalgia (pain) in ear canals: No Pruritus (itching) in ear canals: No History of Ear Surgery: No History/Currently wears hearing aids: Yes WILSON's Right/Left Cerumen Removed: Yes AD soft impaction removed Patient tolerated procedure. Nurse Patient Education: Participant(s) can repeat instructions to Continue with current ear hygiene Refrain from using cotton swabs in ears Ear Care handout provided. PLAN: Follow up in: PRN (as needed) /tia ARMENTA LPN LICENSED PRACTICAL NURSE Signed: 08/21/2023 13:24 ODALIS ARMENTA [facility]
--- OUTSIDE RECORDS SUMMARY | 2023-09-28 10:55 | XMS_ITS | Encounter Summary ---
Author Name [facility] Organization Department of Vetera Affairs Address [address] [place] [address] Support Name Relationship Address Phone SUBHASHTONY RICHARDSON Next of Kin [address] [place] [address] SUBHASH TONY Emergency Contact [address] [facility] [facility] [place], [place] [phone] ELIZABETH CULLEN Next of Kin JOSE [facility] [address] [place] Insurance Providers: All historical and current Section [...] Patient's Relationship to Policy Hernández [facility] ([facility]) MEDICARE ADVANTAGE MCR ([facility]) Jun 08, 2019 [id number] SUBHASH,BE RNARD PATIENT [facility] (WNR) MEDICARE ADVANTAGE [facility] (WNR) Aug 06, 2013 RIVAAB [id number] SUBHASH,BE RNARD PATIENT Selected Encounter This section includes the information on record at [place] for the Encounter. Date/Time Encounter Type Encounter Description Reason Pro vider Source Aug 04, 2023 12:00 PM Outpatient Encounter ADMIN PAT ACTIVTIES (MASNONCT) IHE Encounter Template Text not used by [place] Plan of Treatment: Future Appointments (+ 6 months) and Future Tests (+/- 45 days) The Plan of Treatment section includes future care activities for the patient from all [place] [facility]. This section includes future appointments and future orders which are active, pending or scheduled. Future Appointments This section includes appointments that were scheduled to occur 6 months from the date of the Encounter, up to a maximum of 20 appointments. The data comes from all [facility]. Appointment Date/Time Appointment Type Appointme nt Facility Name Aug 10, 2023 12:45 PM AMBULATORY - NONE [facility] Aug 21, 2023 12:30 PM AMBULATORY - SURGERY [facility] Aug 21, 2023 02:30 PM AMBULATORY - NONE [facility] Dec 04, 2023 01:30 PM AMBULATORY - NONE [facility] Dec 22, 2023 12:30 PM AMBULATORY - SURGERY [facility] Jan 21, 2024 11:00 AM AMBULATORY - MEDICINE [facility] Jan 21, 2024 12:45 PM AMBULATORY - MEDICINE [facility] Jan 21, 2024 01:[address] [facility] Active, Pending, and Scheduled Orders This section includes a listing of several types of active, pending, and scheduled orders, including clinic medications orders, diagnostic test orders, procedure orders and consult orders; where the start date of the order is 45 days before the date of the Encounter or 45 days after the date of theEncounter. The data comes from all [facility]. Test Date/Time Test Type Test Details Facility Name Aug 09, 2023 12:00 AM Imaging - General Radiology Order KNEE BILATERAL, 4V STANDING (P) [facility] Sep 09, 2023 12:00 AM Laboratory - Chemi stry Order BASIC METABOLIC PANEL+MG PLASMA [facility] Sep 09, 2023 12:00 AM Laboratory - Chemi stry Order HEMOGLOBIN A1C BLOOD [facility] Sep 09, 2023 12:00 AM Laboratory - Chemi stry Order LIPID PANEL,NON-FASTING PLASMA [facility] Sep 11, 2023 10:36 AM Consult Order COMMUNITY CARE-OPHTHALMOLOGY Cons Is Support Analyst's Choice [facility] Lab Results: +/- 30 days of the encounter This section includes the Chemistry and Hematology Lab Results on record with [place] for the patient. Radiology Reports and Pathology Reports are provided separately, in subsequent sections. Lab Results This section contains the Chemistry/Hematology Results that were resulted 30 days before or 30 daysafter the date of the Encounter. Date/Time Source Result Type Result - Unit Interpretation Reference Range Comment Jul 10, 2023 11:50 AM [facility] BASIC METABOLIC PANEL+MG Specimen Type: PLASMA No comment entered. Ordering Provider: DESTINI JJ Report Released Date/Time: Jun 13, 2022 01:54 PM Reporting Lab: [facility] [id number] Performing Lab: [facility] [id number] CREATININE 1.2 0.7-1.2 UREA NITROGEN 23 8-26 [...] and tobacco- related health factors from the [place] facility where the Encounter took place. Current Smoking Status This section includes the most current smoking, or tobacco-related health factor, from the [place] facility where the Encounter took place. Date/Time Current Smoking Status Comment Deandre nowak Jul 10, 2023 01:45 PM VA-TOBACCO FORMER USER [facility] Tobacco Use History This section includes a history of the smoking, or tobacco-related health factors, that were collected on or before the date of the Encounter. The data comes from the [place] facility where the Encounter took place. Date/Time Smoking Status/Tobacco Use Comment F acility Jul 10, 2023 01:45 PM VA-TOBACCO QUIT 15 YRS OR MORE [facility] Jun 13, 2022 01:15 PM VA-TOBACCO FORMER USER [facility] Jun 13, 2022 01:15 PM VA-TOBACCO QUIT 15 YRS OR MORE [facility] Apr 29, 2021 12:45 PM VA-TOBACCO FORMER USER [facility] Apr 29, 2021 12:45 PM VA-TOBACCO QUIT 15 YRS OR MORE [facility] May 23, 2019 01:02 PM VA-TOBACCO NEVER USED [facility] Apr 01, 2018 12:53 PM VA-TOBACCO FORMER USER [facility] Apr 01, 2018 12:53 PM VA-TOBACCO QUIT 15 YRS OR MORE [facility] Jun 16, 2017 08:20 AM FORMER TOBACCO USER 7Y OR GREATE R [facility] May 12, 2016 11:04 AM FORMER TOBACCO USER 7Y OR GREATE R [facility] May 24, 2015 01:56 PM FORMER TOBACCO USER 7Y OR GREATE R [facility] Aug 09, 2014 09:40 AM LIFETIME NON-TOBACCO USER [facility] October 25, 2013 09:46 AM FORMER TOBACCO USER 7Y OR GREATE R [facility] Mar 17, 2007 02:35 PM FORMER TOBACCO USER 7Y OR GREATE R [facility] Mar 04, 2006 11:27 AM FORMER TOBACCO USE >1Y [facility] Advance Directives: All historical and current Section [...] Apr 29, 2016 CLINICAL WARNING SANGEETA ALVARES [facility] 2014 CLINICAL WARNING ISAAC DARBY [facility] Apr 01, 2005 ADVANCE DIRECTIVE VALERIE MILLAN [facility] Encounter Notes: All associated encounter notes This section contains the clinical notes associated to the Encounter. Date/Time Encounter Note(s) Provider Source Aug 04, 2023 12:00 PM NONVA CONSULT: LOCAL TITLE: COMMUNITY CARE CONSULT OPHTH DISEASE MANAGEMENT STANDARD TITLE: NONVA CONSULT DATE OF NOTE: AUG 04, 2023@12:00 ENTRY DATE: AUG 07, 2023@10:25:07 AUTHOR: MARCK GALLEGOS EXP COSIGNER: URGENCY: STATUS: COMPLETED VistA Imaging - Scanned Document SCANNED DOCUMENT SIGNATURE NOT REQUIRED Electronically Filed: 08/07/2023 by: MARCK GALLEGOS [employer] MARCK BURT [facility]
--- OUTSIDE RECORDS SUMMARY | 2023-09-28 10:56 | XMS_ITS | Encounter Summary ---
Author Name Department of Vetera Affairs Organization Department of Vetera ns Affairs Address [address] [place] [address] Support Name Relationship Address Phone TONY CULLEN Next of Kin [address] [place] [address] SUBHASH TONY Emergency Contact [address] [place], [place] [phone] SUBHASH, ELIZABETH Next of Kin [facility] [address] [place] Insurance Providers: All historical and current Section [...] Hernández [facility] ([facility]) MEDICARE ADVANTAGE MCR ([facility]) Jun 08, 2019 [id number] SUBHASH,BE RNARD PATIENT [facility] ([facility] MEDICARE ADVANTAGE MCR ([facility] Aug 06, 2013 RIVAAB [id number] [phone] SUBHASH,BE RNARD PATIENT Selected Encounter This section includes the information on record at [place] for the Encounter. Date/Time Encounter Type Encounter Description Reason Provider Source Aug 21, 2023 02:30 PM ORTHC/PROSTC MGMT SBSQ ENC PROSTHETICS/ORTHO TICS ICD-10-CM M79.673 Pain in unspecified foot PHONG,DEEJAY LES LA IHE Encounter Template Text not used by [place] Assessments - Encounter Diagnoses This section includes the primary and secondary diagnoses documented for the Encounter. Date/Time Primary/Secondary Diagnosis Diagnosis Name Provider Source Aug 21, 2023 03:13 PM PRIMARY Pain in unspecified foot DEEJAY DARLING [facility] Plan of Treatment: Future Appointments (+ 6 months) and Future Tests (+/- 45 days) The Plan of Treatment section includes future care activities for the patient from all [place] [facility]. This section includes future appointments and future orders which are active, pending or scheduled. Future Appointments This section includes appointments that were scheduled to occur 6 months from the date of the Encounter, up to a maximum of 20 appointments. The data comes from all [facility]. Appointment Date/Time Appointment Type Appointme nt Facility Name Dec 04, 2023 01:30 PM [facility] Dec 22, 2023 12:30 PM AMBULATORY - SURGERY [facility] Jan 21, 2024 11:00 AM AMBULATORY - [...] of theEncounter. The data comes from all [facility]. Test Date/Time Test Type Test Details Facility Name Aug 09, 2023 12:00 AM Imaging - General Radiology Order KNEE BILATERAL, 4V STANDING (P) [facility] Sep 09, 2023 12:00 AM Laboratory - Chemi stry Order BASIC METABOLIC PANEL+MG PLASMA [facility] Sep 09, 2023 12:00 AM Laboratory - Chemi stry Order HEMOGLOBIN A1C BLOOD [facility] Sep 09, 2023 12:00 AM Laboratory - Chemi stry Order LIPID PANEL,NON-FASTING PLASMA [facility] Sep 11, 2023 10:36 AM Consult Order COMMUNITY CARE-OPHTHALMOLOGY Cons Resident Engineer's Choice [facility] Social History: Smoking Status (Most current) and Tobacco Use (All prior to encounter date) This section includes the most current, and the historical, smoking and tobacco- related health factors from the [place] facility where the Encounter took place. Current Smoking Status This section includes the most current smoking, or tobacco-related health factor, from the [place] facility where the Encounter took place. Date/Time Current Smoking Status Comment Facil ity Jul 10, 2023 01:45 PM VA-TOBACCO FORMER USER [facility] Tobacco Use History This section includes a history of the smoking, or tobacco-related health factors, that were collected on or before the date of the Encounter. The data comes from the [place] facility where the Encounter took place. Date/Time Smoking Status/Tobacco Use Comment F acility Jul 10, 2023 01:45 PM VA-TOBACCO QUIT 15 YRS OR MORE [facility] Jun 13, 2022 01:15 PM VA-TOBACCO FORMER USER [facility] Jun 13, 2022 01:15 PM VA-TOBACCO QUIT 15 YRS OR MORE [facility] Apr 29, 2021 12:45 PM VA-TOBACCO FORMER USER [facility] Apr 29, 2021 12:45 PM VA-TOBACCO QUIT 15 YRS OR MORE [facility] May 23, 2019 01:02 PM VA-TOBACCO NEVER USED [facility] Apr 01, 2018 12:53 PM VA-TOBACCO FORMER USER [facility] Apr 01, 2018 12:53 PM VA-TOBACCO QUIT 15 YRS OR MORE [facility] Jun 16, 2017 08:20 AM FORMER TOBACCO USER 7Y OR GREATE R [facility] May 12, 2016 11:04 AM FORMER TOBACCO USER 7Y OR GREATE R [facility] May 24, 2015 01:56 PM FORMER TOBACCO USER 7Y OR GREATE R [facility] Aug 09, 2014 09:40 AM LIFETIME NON-TOBACCO USER [facility] October 25, 2013 09:46 AM FORMER TOBACCO USER 7Y OR GREATE R [facility] Mar 17, 2007 02:35 PM FORMER TOBACCO USER 7Y OR GREATE R [facility] Mar 04, 2006 11:27 AM FORMER TOBACCO USE >1Y [facility] Advance Directives: All historical and current Section Date Range: From patient's date of to the date document was created. This section includes ALL of a patient's completed or amended [place] Advance and Rescinded Directives. The entries below indicate that a directive exists for the patient, but an actual copy is not included with this document. The data comes from all [facility]. Date Advance Directives Provider Source Apr 29, 2016 CLINICAL WARNING SANGEETA ALVARES [facility] 2014 CLINICAL WARNING ISAAC DARBY [facility] Apr 01, 2005 ADVANCE DIRECTIVE VALERIE MILLAN [facility] Encounter Notes: All associated encounter notes This section contains the clinical notes associated to the Encounter. Date/Time Encounter Note(s) Provider Source Sep 21, 2023 11:51 AM ORTHOTICS PROSTHET ICS CONSULT: LOCAL TITLE: PROSTHETICS CONSULT STANDARD TITLE: ORTHOTICS PROSTHETICS CONSULT DATE OF NOTE: SEP 21, 2023@11:51 ENTRY DATE: SEP 21, 2023@11:52:06 AUTHOR: MARGI DARLING EXP COSIGNER: URGENCY: STATUS: COMPLETED Provisional Diagnosis: Pain in unspecified Foot(ICD-10-CM M79.673) Depth inlay shoe A extra depth shoe with a removable insert to accommodate foot orthotics. Available in low quarter or boot height with lace or velcro closure inserts to provide uniform plantar surface contact within appropriate footwear. Items MAILED TO PATIENT EDUCATION: Education was provided to patient during this encounter. Patient indicated readiness to learn about educational information re: the following topics: donning/doffing, wash/care instructions, how to report a concern. Additional education training is not indicated. Patient indicates readiness to learn, verbalizes understanding, agreement and satisfaction with the treatment plan. Patient denies further questions. Patient will be followed as needed. /luis eduardo/ MARGI DARLING HEALTH FACULTY RESEARCH ASSISTANT Signed: 09/21/2023 11:52 MARGI DARLING [facility] Aug 21, 2023 03:04 PM ORTHOTICS PROSTHET ICS CONSULT: LOCAL TITLE: PROSTHETICS CONSULT STANDARD TITLE: ORTHOTICS PROSTHETICS CONSULT DATE OF NOTE: AUG 21, 2023@15:04 ENTRY DATE: AUG 21, 2023@15:05:02 AUTHOR: MARGI DARLING EXP COSIGNER: URGENCY: STATUS: COMPLETED Provisional Diagnosis: Pain in unspecified Foot(ICD-10-CM M79.673) Custom functional foot orthotics: Supportive materials molded over a model of the patient's foot. The insert is modified to provide uniform plantar surface contact and support of the foot within appropriate footwear. Patient was seen in the prosthetics department for evaluation for custom functional foot orthotics. Patient has worn custom inserts in the past that have helped with foot pain. Pt. 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 Pt. was re-measured and felt even in a 1/2 in shoe lift on the LEFT heel. Patient's feet were evaluated. Patient's ROM is within normal limits and can be corrected to neutral alignment. Patient would benefit from custom functional foot orthotics in order to prevent traumatic collapse of the medial longitudinal arch and encourage plantigrade positioning of the foot. MAIL TO PATIENT Patient indicates readiness to learn, verbalizes understanding, agreement and satisfaction with the treatment plan. Patient denies further questions. Patient will be scheduled for fitting when fabrication is completed. Please create PO and send to Dr. Pham: [id number] X [address] Pham '[place]' SKU: [id number] X 4 2 Pair of prefab foot orthotics [facility] (in house [facility]) item #[id number] men's size 12.5 /es/ MARGI DARLING HEALTH FACULTY RESEARCH ASSISTANT Signed: 08/21/2023 15:13 MARGI DARLING [facility]
--- OUTSIDE RECORDS SUMMARY | 2023-09-28 10:57 | XMS_ITS | Encounter Summary ---
Author Name [facility] Organization [facility] Address [address] [place] [address] Support Name Relationship Address Phone TONY CULLEN Next of Kin [address] [place] [address] SUBHASH, TONY Emergency Contact [address] [facility] [place] [place] [address] SUBHASH ELIZABETH Next of Kin [facility] [address] [place] Insurance Providers: All historical and current Section [...] Patient's Relationship to Policy Hernández [facility] ([facility]) MEDICARE ADVANTAGE MCR ([facility]) Jun 08, 2019 [id number] SUBHASH,BE RNARD PATIENT U-[facility] OF [facility] (WNR) MEDICARE ADVANTAGE MCR ([facility]) Aug 06, 2013 RIVAAB [id number] SUBHASH,BE RNARD PATIENT Selected Encounter This section includes the information on record at [place] for the Encounter. Date/Time Encounter Type Encounter Description Reason Pro vider Source Sep 07, 2023 12:28 PM Outpatient Encounter EVENT (HISTORICAL) IHE Encounter Template Text not used by [place] Plan of Treatment: Future Appointments (+ 6 [...] 04, 2023 01:30 PM AMBULATORY - NONE [facility] Dec 22, 2023 12:30 PM AMBULATORY - SURGERY [facility]LA [facility] Jan 21, 2024 11:00 AM AMBULATORY - MEDICINE [facility] Jan 21, 2024 12:45 PM AMBULATORY - MEDICINE [facility] Jan 21, 2024 01:00 PM AMBULATORY MEDICINE [facility] Active, Pending, [...] [facility] [address]. Test Date/Time Test Type Test Details Facility Name Aug 09, 2023 12:00 AM Imaging - General Radiology Order KNEE BILATERAL, 4V STANDING (P) [facility] Sep 09, 2023 12:00 AM Laboratory - Chemi stry Order HEMOGLOBIN A1C BLOOD [facility] Sep 09, 2023 12:00 AM Laboratory - Chemi stry Order LIPID PANEL,NON-FASTING PLASMA [facility] Sep 09, 2023 12:00 AM Laboratory - Chemi stry Order BASIC METABOLIC PANEL+MG PLASMA [facility] Sep 11, 2023 10:36 AM Consult Order COMMUNITY CARE-OPHTHALMOLOGY Cons Industrial Commercial Groundskeeper's Choice [facility] Social History: Smoking Status (Most current) and Tobacco Use (All prior to encounter date) This section includes the most current, and the historical, smoking and tobacco- related health factors from the [place] facility where the Encounter took place. Current Smoking Status This section includes the most current smoking, or tobacco-related health factor, from the [place] facility where the Encounter took place. Date/Time Current Smoking Status Comment Facil ity Jul 10, 2023 01:45 PM VA-TOBACCO FORMER USER [facility] Tobacco Use History This section includes a history of the smoking, or tobacco-related health factors, that were collected on or before the date of the Encounter. The data comes from the [place] facility where the Encounter took place. Date/Time Smoking Status/Tobacco Use Comment F acility Jul 10, 2023 01:45 PM VA-TOBACCO QUIT 15 YRS OR MORE [facility] Jun 13, 2022 01:15 PM VA-TOBACCO FORMER USER [facility] Jun 13, 2022 01:15 PM VA-TOBACCO QUIT 15 YRS OR MORE [facility] Apr 29, 2021 12:45 PM VA-TOBACCO FORMER USER [facility] Apr 29, 2021 12:45 PM VA-TOBACCO QUIT 15 YRS OR MORE [facility] May 23, 2019 01:02 PM VA-TOBACCO NEVER USED [facility] Apr 01, 2018 12:53 PM VA-TOBACCO FORMER USER [facility] Apr 01, 2018 12:53 PM VA-TOBACCO QUIT 15 YRS OR MORE [facility] Jun 16, 2017 08:20 AM FORMER TOBACCO USER 7Y OR GREATE R [facility] May 12, 2016 11:04 AM FORMER TOBACCO USER 7Y OR GREATE R [facility] May 24, 2015 01:56 PM FORMER TOBACCO USER 7Y OR GREATE R [facility] Aug 09, 2014 09:40 AM LIFETIME NON-TOBACCO USER [facility] October 25, 2013 09:46 AM FORMER TOBACCO USER 7Y OR GREATE R [facility] Mar 17, 2007 02:35 PM FORMER TOBACCO USER 7Y OR GREATE R [facility] Mar 04, 2006 11:27 AM FORMER TOBACCO USE >1Y [facility] Advance Directives: All historical and current Section Date Range: From patient's date of to the date document was created. This section includes ALL of a patient's completed or amended [place] Advance and Rescinded Directives. The entries below indicate that a directive exists for the patient, but an actual copy is not included with this document. The data comes from all [facility]. Date Advance Directives Provider Source Apr 29, 2016 CLINICAL WARNING SANGEETA ALVARES [facility] 2014 CLINICAL WARNING ISAAC DARBY [facility] Apr 01, 2005 ADVANCE DIRECTIVE VALERIE MILLAN [facility]
--- OUTSIDE RECORDS SUMMARY | 2023-09-28 10:57 | XMS_ITS | Encounter Summary ---
Author Name [facility] Organization [facility] Address [address] [place] [address] Support Name Relationship Address Phone TONY CULLEN Next of Kin [address] [place] [address] SUBHASH, TONY Emergency Contact [address] [facility] [place] [address] SUBHASH ELIZABETH Next [facility] [address] [place] Insurance Providers: All historical [...] Relationship to Policy Hernández [facility] (WN) MEDICARE ADVANTAGE MCR ([facility]) Jun 08, 2019 [id number] SUBHASH,BE RNARD PATIENT [facility] (WNR) MEDICARE ADVANTAGE MCR ([facility]) Aug 06, 2013 RIVAAB [id number] [phone] SUBHASH,BE RNARD PATIENT Selected Encounter This section includes the information on record at [place] for the Encounter. Date/Time Encounter Type Encounter Description Reason Pro vider Source Sep 07, 2023 12:31 PM Outpatient Encounter EVENT (HISTORICAL) IHE Encounter Template Text not used by [place] Plan of Treatment: Future Appointments (+ 6 [...] 01:30 PM AMBULATORY - NONE [facility] Dec 22, 2023 12:30 PM AMBULATORY - SURGERY [facility] Jan 21, 2024 11:00 AM AMBULATORY - MEDICINE [facility] Jan 21, 2024 12:45 PM AMBULATORY - MEDICINE [facility] Jan 21, 2024 01:00 PM AMBULATORY MEDICINE [facility] Active, Pending, and Scheduled Orders [...] Radiology Order KNEE BILATERAL, 4V STANDING (P) [facility] Sep 09, 2023 12:00 AM Laboratory - Chemi stry Order HEMOGLOBIN A1C BLOOD [facility] Sep 09, 2023 12:00 AM Laboratory - Chemi stry Order BASIC METABOLIC PANEL+MG PLASMA [facility] Sep 09, 2023 12:00 AM Laboratory - Chemi stry Order LIPID PANEL,NON-FASTING PLASMA [facility] Sep 11, 2023 10:36 AM Consult Order COMMUNITY CARE-OPHTHALMOLOGY Cons Executive Sales Assistant's Choice [facility] Social History: Smoking Status (Most current) and Tobacco Use (All prior to encounter date) This section includes the most current, and the historical, smoking and tobacco- related health factors from the [place] facility where the Encounter took place. Current Smoking Status This section includes the most current smoking, or tobacco-related health factor, from the [place] facility where the Encounter took place. Date/Time Current Smoking Status Comment Facil ity Jul 10, 2023 01:45 PM VA-TOBACCO FORMER USER [facility] Tobacco Use History This section includes a history of the smoking, or tobacco-related health factors, that were collected on or before the date of the Encounter. The data comes from the [place] facility where the Encounter took place. Date/Time Smoking Status/Tobacco Use Comment F acility Jul 10, 2023 01:45 PM VA-TOBACCO QUIT 15 YRS OR MORE [facility] Jun 13, 2022 01:15 PM VA-TOBACCO FORMER USER [facility] Jun 13, 2022 01:15 PM VA-TOBACCO QUIT 15 YRS OR MORE [facility] Apr 29, 2021 12:45 PM VA-TOBACCO FORMER USER [facility] Apr 29, 2021 12:45 PM VA-TOBACCO QUIT 15 YRS OR MORE [facility] May 23, 2019 01:02 PM VA-TOBACCO NEVER USED [facility] Apr 01, 2018 12:53 PM VA-TOBACCO FORMER USER [facility] Apr 01, 2018 12:53 PM VA-TOBACCO QUIT 15 YRS OR MORE [facility] Jun 16, 2017 08:20 AM FORMER TOBACCO USER 7Y OR GREATE R [facility] May 12, 2016 11:04 AM FORMER TOBACCO USER 7Y OR GREATE R [facility] May 24, 2015 01:56 PM FORMER TOBACCO USER 7Y OR GREATE R [facility] Aug 09, 2014 09:40 AM LIFETIME NON-TOBACCO USER [facility] October 25, 2013 09:46 AM FORMER TOBACCO USER 7Y OR GREATE R [facility] Mar 17, 2007 02:35 PM FORMER TOBACCO USER 7Y OR GREATE R [facility] Mar 04, 2006 11:27 AM FORMER TOBACCO USE >1Y [facility] Advance Directives: All historical and current Section Date Range: From patient's date of to the date document was created. This section includes ALL of a patient's completed or amended [place] Advance and Rescinded Directives. The entries below indicate that a directive exists for the patient, but an actual copy is not included with this document. The data comes from all [facility]. Date Advance Directives Provider Source Apr 29, 2016 CLINICAL WARNING SANGEETA ALVARES [facility] 2014 CLINICAL WARNING ISAAC DARBY [facility] Apr 01, 2005 ADVANCE DIRECTIVE VALERIE MILLAN [facility]
--- OUTSIDE RECORDS SUMMARY | 2023-09-28 10:57 | XMS_ITS | Encounter Summary ---
Author Name [facility] Organization [facility] of [facility] Address [address] [place] [address] Support Name Relationship Address Phone TONY CULLEN Next of Kin [address] [place] [address] DEMIAN CULLENIN Emergency Contact [address] [address] SUBHASHBLANKAN Next of Kin JOSE [place] [facility] [address] [place] Insurance Providers: All historical and current Section [...] Patient's Relationship to Policy Hernández [facility] (WN) MEDICARE ADVANTAGE MCR ([facility]) Jun 08, 2019 [id number] SUBHASH,BE RNARD PATIENT [facility] (WNR) MEDICARE ADVANTAGE MCR ([facility]) Aug 06, 2013 RIVAAB [id number] [phone] SUBHASH,BE RNARD PATIENT Selected Encounter This section includes the information on record at [place] for the Encounter. Date/Time Encounter Type Encounter Description Reason Pro vider Source Sep 08, 2023 03:14 PM Outpatient Encounter TELEPHONE TRIAGE IHE Encounter Template Text not used by [place] Plan of Treatment: Future Appointments (+ 6 months) and Future Tests (+/- 45 days) The Plan of Treatment section includes future care activities for the patient from all [place] treatmentfacilities. This section includes future appointments and future orders which are active, pending or scheduled. Future Appointments This section includes appointments that were scheduled to occur 6 months from the date of the Encounter, up to a maximum of 20 appointments. The data comes from all [facility]. Appointment Date/Time Appointment Type Appointme nt Facility Name Dec 04, 2023 01:30 PM AMBULATORY - NONE [facility] Dec 22, 2023 12:30 PM AMBULATORY - SURGERY [facility] Jan 21, 2024 11:00 AM AMBULATORY - MEDICINE [facility] Jan 21, 2024 12:45 PM AMBULATORY - MEDICINE [facility] Jan 21, 2024 01:00 PM AMBULATORY MEDICINE [facility] Active, Pending, and Scheduled Orders This section includes a listing of several types of active, pending, and scheduled orders, including clinic medications orders, diagnostic test orders, procedure orders and consult orders; where the start date of the order is 45 days before the date of the Encounter or 45 days after the date of theEncounter. The data comes from all [facility]. Test Date/Time Test Type Test Details Facility Name Aug 09, 2023 12:00 AM Imaging - General Radiology Order KNEE BILATERAL, 4V STANDING (P) [facility] Sep 09, 2023 12:00 AM Laboratory - Chemi stry Order BASIC METABOLIC PANEL+MG PLASMA [facility] Sep 09, 2023 12:00 AM Laboratory - Chemi stry Order HEMOGLOBIN A1C BLOOD [facility] Sep 09, 2023 12:00 AM Laboratory - Chemi stry Order LIPID PANEL,NON-FASTING PLASMA [facility] Sep 11, 2023 10:36 AM Consult Order COMMUNITY CARE-OPHTHALMOLOGY Cons Senior Web Services Developer's Choice [facility] Social History: Smoking Status (Most current) and Tobacco Use (All prior to encounter date) This section includes the most current, and the historical, smoking and tobacco- related health factors from the [place] facility where the Encounter took place. Current Smoking Status This section includes the most current smoking, or tobacco-related health factor, from the [place] facility where the Encounter took place. Date/Time Current Smoking Status Comment Deandre nowak Jul 10, 2023 01:45 PM VA-TOBACCO FORMER USER [facility] Tobacco Use History This section includes a history of the smoking, or tobacco-related health factors, that were collected on or before the date of the Encounter. The data comes from the [place] facility where the Encounter took place. Date/Time Smoking Status/Tobacco Use Comment F acility Jul 10, 2023 01:45 PM VA-TOBACCO QUIT 15 YRS OR MORE [facility] Jun 13, 2022 01:15 PM VA-TOBACCO FORMER USER [facility] Jun 13, 2022 01:15 PM VA-TOBACCO QUIT 15 YRS OR MORE [facility] Apr 29, 2021 12:45 PM VA-TOBACCO FORMER USER [facility] Apr 29, 2021 12:45 PM VA-TOBACCO QUIT 15 YRS OR MORE [facility] May 23, 2019 01:02 PM VA-TOBACCO NEVER USED [facility] Apr 01, 2018 12:53 PM VA-TOBACCO FORMER USER [facility] Apr 01, 2018 12:53 PM VA-TOBACCO QUIT 15 YRS OR MORE [facility] Jun 16, 2017 08:20 AM FORMER TOBACCO USER 7Y OR GREATE R [facility] May 12, 2016 11:04 AM FORMER TOBACCO USER 7Y OR GREATE R [facility] May 24, 2015 01:56 PM FORMER TOBACCO USER 7Y OR GREATE R [facility] Aug 09, 2014 09:40 AM LIFETIME NON-TOBACCO USER [facility] October 25, 2013 09:46 AM FORMER TOBACCO USER 7Y OR GREATE R [facility] Mar 17, 2007 02:35 PM FORMER TOBACCO USER 7Y OR GREATE R [facility] Mar 04, 2006 11:27 AM FORMER TOBACCO USE >1Y [facility] Advance Directives: All historical and current Section Date Range: From patient's date of to the date document was created. This section includes ALL of a patient's completed or amended [place] Advance and Rescinded Directives. The entries below indicate that a directive exists for the patient, but an actual copy is not included with this document. The data comes from all [place] facilities. Date Advance Directives Provider Source Apr 29, 2016 CLINICAL WARNING SANGEETA ALVARES [facility] 2014 CLINICAL WARNING ISAAC DARBY [facility] Apr 01, 2005 ADVANCE DIRECTIVE VALERIE MILLAN [facility] Encounter Notes: All associated encounter notes This section contains the clinical notes associated to the Encounter. Date/Time Encounter Note(s) Provider Source Sep 08, 2023 09:31 PM ADDENDUM: LOCAL TITLE: Addendum STANDARD TITLE: ADDENDUM DATE OF NOTE: SEP 08, 2023@21:31:14 ENTRY DATE: SEP 08, 2023@21:31:15 AUTHOR: ARMOND GONZALES COSIGNER: URGENCY: STATUS: COMPLETED pt appeasrs to be an active patient in our eye clinic, though has not been seen for this issue, presumably. Defer to our eye clinic to eval, triage and cic as indicated. /luis eduardo/ Omkar Gonzales MD STAFF PHYSICIAN Signed: 09/08/2023 21:32 Receipt Acknowledged By: 09/09/2023 10:33 /es/ KALIE WAGNER VSN23 [facility] 09/09/2023 09:24 /luis eduardo/ GAMAL RICK REGISTERED NURSE 09/11/2023 10:36 /es/ Jennifer Kimball MD Ophthalmologist --- Original Document --- 09/08/23 CCC: SCHEDULING ADMINISTRATION: Primary Care Call Center Primary Care Provider Call. Other: [place] calls requesting consult for community care Ophthalmology at [facility]. He states they want to continue to follow his eye infection and want a complete work up of his eyes. Declined coat agent for eye infection. This note was created by a V23 [facility] Call Center [facility]. Please do not alert this telegraphic typewriter operator by adding as a signer for future communications. Alerts are not monitored by this user, please reach out to [facility] Leadership instead if indicated. Phone number verified as correct. /es/ KALIE WAGNER VSN23 [facility] Signed: 09/08/2023 15:22 Receipt Acknowledged By: 09/08/2023 15:24 /tia RICK REGISTERED NURSE for GAIL HERZOG 09/08/2023 ADDENDUM STATUS: COMPLETED FYI PCP-please place CC ophthalmology consult if appropriate. /luis eduardo/ GAMAL RICK REGISTERED NURSE Signed: 09/08/2023 15:23 Receipt Acknowledged By: 09/08/2023 21:27 /es/ T. Lionel Gonzales MD STAFF PHYSICIAN for DESTINI DUBONAN 09/09/2023 ADDENDUM STATUS: COMPLETED Previous [facility] Opthal consult reviewed (#[id number]), approved to recieved all eye care through [facility] through 03/10/24. Called [facility] staff to confirm vet is able to receive requested care w/o additional consult. [facility] confirmed that as long as the authorization is active, vet is able to receive care r/t eye infection/complete work up of eyes. Notified vet, verbalized understanding. Vet will keep appointment scheduled with [facility] as scheduled. /tia RICK REGISTERED NURSE Signed: 09/09/2023 10:11 ARMOND GONZALES [facility] Sep 08, 2023 03:23 PM ADDENDUM: LOCAL TITLE: Addendum STANDARD TITLE: ADDENDUM DATE OF NOTE: SEP 08, 2023@15:23:22 ENTRY DATE: SEP 08, 2023@15:23:23 AUTHOR: GAMAL RICK EXP COSIGNER: URGENCY: STATUS: COMPLETED FYI PCP-please place CC ophthalmology consult if appropriate. /tia IRCK REGISTERED NURSE Signed: 09/08/2023 15:23 Receipt Acknowledged By: 09/08/2023 21:27 /es/ T. Lionel Gonzales MD STAFF PHYSICIAN for DESTINI JJ --- Original Document --- 09/08/23 CCC: SCHEDULING ADMINISTRATION: Primary Care Call Center Primary Care Provider Call. Other: calls requesting consult for community care Ophthalmology at [facility]. He states they want to continue to follow his eye infection and want a complete work up of his eyes. Declined coat agent for eye infection. This note was created by a 3 [facility] Call Center [facility]. Please do not alert this telegraphic typewriter operator by adding as a signer for future communications. Alerts are not monitored by this user, please reach out to [facility] Leadership instead if indicated. Phone number verified as correct. /es/ KALIE WAGNER VSN23 [facility] Signed: 09/08/2023 15:22 Receipt Acknowledged By: 09/08/2023 15:24 /luis eduardo/ GAMAL RICK REGISTERED NURSE for GAIL L GAMAL MAKI [facility] Sep 08, 2023 03:19 PM ADMINISTRATIVE NOT E: LOCAL TITLE: CCC: SCHEDULING ADMINISTRATION STANDARD TITLE: ADMINISTRATIVE NOTE DATE OF NOTE: SEP 08, 2023@15:19 ENTRY DATE: SEP 08, 2023@15:19:28 AUTHOR: KALIE WAGNER EXP COSIGNER: URGENCY: STATUS: COMPLETED CCC: SCHEDULING ADMINISTRATION Has ADDENDA Primary Care Call Center Primary Care Provider Call. Other: calls requesting consult for community care Ophthalmology at [facility]. He states they want to continue to follow his eye infection and want a complete work up of his eyes. Declined coat agent for eye infection. This note was created by a V23 [facility] Call Center [facility]. Please do not alert this telegraphic typewriter operator by adding as a signer for future communications. Alerts are not monitored by this user, please reach out to [facility] Leadership instead if indicated. Phone number verified as correct. /es/ KALIE WAGNER VSN23 [facility] MSA Signed: 09/08/2023 15:22 Receipt Acknowledged By: 09/08/2023 15:24 /luis eduardo/ GAMAL RICK REGISTERED NURSE for GAIL HERZOG 09/08/2023 ADDENDUM STATUS: COMPLETED FYI PCP-please place CC ophthalmology consult if appropriate. /luis eduardo/ GAMAL RICK REGISTERED NURSE Signed: 09/08/2023 15:23 Receipt Acknowledged By: 09/08/2023 21:27 /luis eduardo/ Omkar Gonzales MD STAFF PHYSICIAN for DESTINI DUBONAN 09/08/2023 ADDENDUM STATUS: COMPLETED pt appeasrs to be an active patient in our eye clinic, though has not been seen for this issue, presumably. Defer to our eye clinic to eval, triage and cic as indicated. /es/ T. Lionel Gonzales MD STAFF PHYSICIAN Signed: 09/08/2023 21:32 Receipt Acknowledged By: * AWAITING SIGNATURE * KALIE WAGNER 09/09/2023 09:24 /luis eduardo/ GAMAL RICK REGISTERED NURSE * AWAITING SIGNATURE * SANIAKayeJENNIFER 09/09/2023 ADDENDUM STATUS: COMPLETED Previous [facility] Opthal consult reviewed (#[id number]), approved to recieved all eye care through [facility] through 03/10/24. Called [facility] staff to confirm vet is able to receive requested care w/o additional consult. [facility] confirmed that as long as the authorization is active, vet is able to receive care r/t eye infection/complete work up of eyes. Notified vet, verbalized understanding. Vet will keep appointment scheduled with [facility] as scheduled. /luis eduardo/ GAMAL RICK REGISTERED NURSE Signed: 09/09/2023 10:11 KALIE WAGNER [facility]
--- OUTSIDE RECORDS SUMMARY | 2023-09-28 10:57 | XMS_ITS | Encounter Summary ---
Author Name [facility] Organization Department of Vetera Affairs Address [address] [place] [address] Support Name Relationship Address Phone TONY CULLEN Next of Kin [address] [place] [address] SUBHASH, TONY Emergency Contact [address] [facility] [place] [address] SUBHASH ELIZABETH Next of Kin JOSE [facility] [address] [place] Insurance Providers: All historical and current Section [...] Patient's Relationship to Policy Hernández [facility] (WN) MEDICARE ADVANTAGE MCR ([facility]) Jun 08, 2019 [id number] SUBHASH,BE RNARD PATIENT [facility] (WNR) MEDICARE ADVANTAGE MCR ([facility]) Aug 06, 2013 RIVAAB [id number] SUBHASH,BE RNARD PATIENT Selected Encounter This section includes the information on record at [place] for the Encounter. Date/Time Encounter Type Encounter Description Reason Pro vider Source Sep 10, 2023 08:34 AM Outpatient Encounter COMMUNITY CARE CONSULT IHE [...] 20 appointments. The data comes from all [facility]. Appointment Date/Time Appointment Type Appointme nt Facility Name Dec 04, 2023 01:30 PM AMBULATORY - NONE [facility] Dec 22, 2023 12:30 PM AMBULATORY - SURGERY [facility] Jan 21, 2024 11:00 AM AMBULATORY - MEDICINE [facility] Jan 21, 2024 12:45 PM AMBULATORY - MEDICINE [facility] Jan 21, 2024 01:00 PM AMBULATORY MEDICINE [facility] Active, Pending, and [...] of theEncounter. The data comes from all [facility]. Test Date/Time Test Type Test Details Facility Name Aug 09, 2023 12:00 AM Imaging - General Radiology Order KNEE BILATERAL, 4V STANDING (P) [facility] Sep 09, 2023 12:00 AM Laboratory - Chemi stry Order BASIC METABOLIC PANEL+MG PLASMA [facility] Sep 09, 2023 12:00 AM Laboratory - Chemi stry Order HEMOGLOBIN A1C BLOOD [facility] Sep 09, 2023 12:00 AM Laboratory - Chemi stry Order LIPID PANEL,NON-FASTING PLASMA [facility] Sep 11, 2023 10:36 AM Consult Order COMMUNITY CARE-OPHTHALMOLOGY Cons Preparation Center Coordinator's Choice [facility] Social History: [...] this document. The data comes from all [place] facilities. Date Advance Directives Provider Source Apr 29, 2016 CLINICAL WARNING SANGEETA ALVARES [facility] 2014 CLINICAL WARNING ISAAC DARBY [facility] Apr 01, 2005 ADVANCE DIRECTIVE VALERIE MILLAN [facility] Encounter Notes: All associated encounter notes This section contains the clinical notes associated to the Encounter. 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 stated that he wants to put on hold the urology referral until after he has his knee surgery. stated that he is schedule for knee surgery on 10/20/2023, and then about three months of rehab, and that he will want schedule with urology sometime in Feb. or Mar. /luis eduardo/ JOSE E HERNÁNDEZ AMSA Signed: 09/10/2023 08:35 Receipt Acknowledged By: 09/10/2023 08:47 /luis eduardo/ GAMAL RICK REGISTERED NURSE for JOSE E ALFARO [facility]
--- OUTSIDE RECORDS SUMMARY | 2023-09-28 10:58 | XMS_ITS | Encounter Summary ---
Author Name [facility] Organization [facility] Address [address] [place] [address] Support Name Relationship Address Phone TONY CULLEN Next of Kin [address] [place] [address] SUBHASH, TONY Emergency Contact [address] [facility] [address] SUBHASH ELIZABETH Next of Kin JOSE [facility] [address] [place] Insurance Providers: All historical and current Section [...] Relationship to Policy Hernández [facility] ([facility]) MEDICARE ADVANTAGE MCR ([facility]) Jun 08, 2019 [id number] SUBHASH,BE RNARD PATIENT [facility] (WN) MEDICARE ADVANTAGE MCR ([facility]) Aug 06, 2013 RIVAAB [id number] SUBHASH,BE RNARD PATIENT Selected Encounter This section includes the information on record at [place] for the Encounter. Date/Time Encounter Type Encounter Description Reason Provider Source Sep 14, 2023 09:12 AM Outpatient Encounter COMMUNITY CARE CONSULT KRISTEN [...] 20 appointments. The data comes from all [facility]. Appointment Date/Time Appointment Type Appointme nt Facility Name Dec 04, 2023 01:30 PM AMBULATORY - NONE KATIA BAILEY [facility] Dec 22, 2023 12:30 PM AMBULATORY - SURGERY BOOKER DE LA CRUZ [facility] Jan 21, 2024 11:00 AM AMBULATORY - MEDICINE [facility] Jan 21, 2024 12:45 PM AMBULATORY - MEDICINE [facility] Jan 21, 2024 01:00 PM AMBULATORY MEDICINE [facility] Active, Pending, and Scheduled Orders This section includes a listing of several types of active, pending, and scheduled orders, including clinic medications orders, diagnostic test orders, procedure orders and consult orders; where the start date of the order is 45 days before the date of the Encounter or 45 days after the date of theEncounter. The data comes from all [facility]. Test Date/Time Test Type Test Details Facility Name Aug 09, 2023 12:00 AM Imaging - General Radiology Order KNEE BILATERAL, 4V STANDING (P) [facility] Sep 09, 2023 12:00 AM Laboratory - Chemi stry Order HEMOGLOBIN A1C BLOOD [facility] Sep 09, 2023 12:00 AM Laboratory - Chemi stry Order BASIC METABOLIC PANEL+MG PLASMA [facility] Sep 09, 2023 12:00 AM Laboratory - Chemi stry Order LIPID PANEL,NON-FASTING PLASMA [facility] Sep 11, 2023 10:36 AM Consult Order COMMUNITY CARE-OPHTHALMOLOGY Cons Sail Maker's Choice [facility] Social History: Smoking Status (Most current) and Tobacco Use (All prior to encounter date) This section includes the most current, and the historical, smoking and tobacco- related health factors from the [place] facility where the Encounter took place. Current Smoking Status This section includes the most current smoking, or tobacco-related health factor, from the [place] facility where the Encounter took place. Date/Time Current Smoking Status Comment Facil ity Jul 10, 2023 01:45 PM VA-TOBACCO FORMER USER [facility] Tobacco Use History This section includes a history of the smoking, or tobacco-related health factors, that were collected on or before the date of the Encounter. The data comes from the [place] facility where the Encounter took place. Date/Time Smoking Status/Tobacco Use Comment F acility Jul 10, 2023 01:45 PM VA-TOBACCO QUIT 15 YRS OR MORE [facility] Jun 13, 2022 01:15 PM VA-TOBACCO FORMER USER [facility] Jun 13, 2022 01:15 PM VA-TOBACCO QUIT 15 YRS OR MORE [facility] Apr 29, 2021 12:45 PM VA-TOBACCO FORMER USER [facility] Apr 29, 2021 12:45 PM VA-TOBACCO QUIT 15 YRS OR MORE [facility] May 23, 2019 01:02 PM VA-TOBACCO NEVER USED [facility] Apr 01, 2018 12:53 PM VA-TOBACCO FORMER USER [facility] Apr 01, 2018 12:53 PM VA-TOBACCO QUIT 15 YRS OR MORE [facility] Jun 16, 2017 08:20 AM FORMER TOBACCO USER 7Y OR GREATE R [facility] May 12, 2016 11:04 AM FORMER TOBACCO USER 7Y OR GREATE R [facility] May 24, 2015 01:56 PM FORMER TOBACCO USER 7Y OR GREATE R [facility] Aug 09, 2014 09:40 AM LIFETIME NON-TOBACCO USER [facility] October 25, 2013 09:46 AM FORMER TOBACCO USER 7Y OR GREATE R [facility] Mar 17, 2007 02:35 PM FORMER TOBACCO USER 7Y OR GREATE R [facility] Mar 04, 2006 11:27 AM FORMER TOBACCO USE >1Y [facility] Advance Directives: All historical and current Section Date Range: From patient's date of to the date document was created. This section includes ALL of a patient's completed or amended [place] Advance and Rescinded Directives. The entries below indicate that a directive exists for the patient, but an actual copy is not included with this document. The data comes from all [facility]. Date Advance Directives Provider Source Apr 29, 2016 CLINICAL WARNING SANGEETA ALVARES [facility] 2014 CLINICAL WARNING ISAAC DARBY [facility] Apr 01, 2005 ADVANCE DIRECTIVE VALERIE MILLAN [facility] Encounter Notes: All associated encounter notes This section contains the clinical notes associated to the Encounter. Date/Time Encounter Note(s) Provider Source Sep 14, 2023 09:12 AM NONVA NOTE: LOCAL TITLE: COMMUNITY CARE-CARE COORDINATION PLAN NOTE STANDARD TITLE: NONVA NOTE DATE OF NOTE: SEP 14, 2023@09:12 ENTRY DATE: SEP 14, 2023@09:12:58 AUTHOR: KRISTEN MORRIS EXP COSIGNER: URGENCY: STATUS: COMPLETED Community Care Consult: OPHTHALMOLOGY Consult No: [id number] Chief Complaint: Diabetes Patient Admitted? No Level of Care Coordination [...] care determined at that time. /luis eduardo/ Kristen Morris MSN, RN RN Judicial Clerk Signed: 09/14/2023 09:14 KRISTEN MORRIS [facility]
--- OUTSIDE RECORDS SUMMARY | 2023-09-28 10:58 | XMS_ITS | Encounter Summary ---
Author Name [facility] Organization [facility] Address [address] [place] [address] Support Name Relationship Address Phone TONY CULLEN Next of Kin [address] [place] [address] DEMIAN CULLENIN Emergency Contact [address] [place] [address] SUBHASHBLANKAN Next of Kin JOSE [place] [facility] [address] [place] Insurance Providers: All historical and current Section [...] Patient's Relationship to Policy Hernández [facility] (WN) MEDICARE ADVANTAGE MCR ([facility]) Jun 08, 2019 [id number] SUBHASH,BE RNARD PATIENT [facility] ([facility]) MEDICARE ADVANTAGE MCR ([facility]) Aug 06, 2013 RIVAAB [id number] [phone] SUBHASH,BE RNARD PATIENT Selected Encounter This section includes the information on record at [place] for the Encounter. Date/Time Encounter Type Encounter Description Reason Pro vider Source Sep 16, 2023 02:46 PM Outpatient Encounter TELEPHONE TRIAGE IHE Encounter Template Text not used by [place] Plan of Treatment: Future Appointments (+ 6 [...] appointments. The data comes from all [facility]. Appointment Date/Time Appointment Type Appointme nt Facility Name Dec 04, 2023 01:30 PM AMBULATORY - NONE [facility]OOKER[facility]O LYNN [facility] Dec 22, 2023 12:30 PM AMBULATORY - SURGERY BOOKER MARRLIS [facility] Jan 21, 2024 11:00 AM AMBULATORY - MEDICINE [facility] Jan 21, 2024 12:45 PM AMBULATORY - MEDICINE [facility] Jan 21, 2024 01:[address] [facility] Active, Pending, and Scheduled Orders This section includes a listing of several types of active, pending, and scheduled orders, including clinic medications orders, diagnostic test orders, procedure orders and consult orders; where the start date of the order is 45 days before the date of the Encounter or 45 days after the date of theEncounter. The data comes from all [facility]. Test Date/Time Test Type Test Details Facility Name Aug 09, 2023 12:00 AM Imaging - General Radiology Order KNEE BILATERAL, 4V STANDING (P) [facility] Sep 09, 2023 12:00 AM Laboratory - Chemi stry Order BASIC METABOLIC PANEL+MG PLASMA [facility] Sep 09, 2023 12:00 AM Laboratory - Chemi stry Order HEMOGLOBIN A1C BLOOD [facility] Sep 09, 2023 12:00 AM Laboratory - Chemi stry Order LIPID PANEL,NON-FASTING PLASMA [facility] Sep 11, 2023 10:36 AM Consult Order COMMUNITY CARE-OPHTHALMOLOGY Cons Electrical Maintenance Technician's Choice [facility] Social History: Smoking Status (Most current) and Tobacco Use (All prior to encounter date) This section includes the most current, and the historical, smoking and tobacco- related health factors from the [place] facility where the Encounter took place. Current Smoking Status This section includes the most current smoking, or tobacco-related health factor, from the [place] facility where the Encounter took place. Date/Time Current Smoking Status Comment Deandre nowak Jul 10, 2023 01:45 PM VA-TOBACCO FORMER USER [facility] Tobacco Use History This section includes a history of the smoking, or tobacco-related health factors, that were collected on or before the date of the Encounter. The data comes from the [place] facility where the Encounter took place. Date/Time Smoking Status/Tobacco Use Comment F acility Jul 10, 2023 01:45 PM VA-TOBACCO QUIT 15 YRS OR MORE [facility] Jun 13, 2022 01:15 PM VA-TOBACCO FORMER USER [facility] Jun 13, 2022 01:15 PM VA-TOBACCO QUIT 15 YRS OR MORE [facility] Apr 29, 2021 12:45 PM VA-TOBACCO FORMER USER [facility] Apr 29, 2021 12:45 PM VA-TOBACCO QUIT 15 YRS OR MORE [facility] May 23, 2019 01:02 PM VA-TOBACCO NEVER USED [facility] Apr 01, 2018 12:53 PM VA-TOBACCO FORMER USER [facility] Apr 01, 2018 12:53 PM VA-TOBACCO QUIT 15 YRS OR MORE [facility] Jun 16, 2017 08:20 AM FORMER TOBACCO USER 7Y OR GREATE R [facility] May 12, 2016 11:04 AM FORMER TOBACCO USER 7Y OR GREATE R [facility] May 24, 2015 01:56 PM FORMER TOBACCO USER 7Y OR GREATE R [facility] Aug 09, 2014 09:40 AM LIFETIME NON-TOBACCO USER [facility] October 25, 2013 09:46 AM FORMER TOBACCO USER 7Y OR GREATE R [facility] Mar 17, 2007 02:35 PM FORMER TOBACCO USER 7Y OR GREATE R [facility] Mar 04, 2006 11:27 AM FORMER TOBACCO USE >1Y [facility] Advance Directives: All historical and current Section Date Range: From patient's date of to the date document was created. This section includes ALL of a patient's completed or amended [place] Advance and Rescinded Directives. The entries below indicate that a directive exists for the patient, but an actual copy is not included with this document. The data comes from all [facility]. Date Advance Directives Provider Source Apr 29, 2016 CLINICAL WARNING SANGEETA ALVARES [facility] 2014 CLINICAL WARNING ISAAC DARBY [facility] Apr 01, 2005 ADVANCE DIRECTIVE VALERIE MILLAN [facility] Encounter Notes: All associated encounter notes This section contains the clinical notes associated to the Encounter. Date/Time Encounter Note(s) Provider Source Sep 16, 2023 02:46 PM ADMINISTRATIVE NOT E: LOCAL TITLE: CCC: SCHEDULING ADMINISTRATION STANDARD TITLE: ADMINISTRATIVE NOTE DATE OF NOTE: SEP 16, 2023@14:46 ENTRY DATE: SEP 16, 2023@14:46:55 AUTHOR: GUILLE LORENZ EXP COSIGNER: URGENCY: STATUS: COMPLETED [facility]: SCHEDULING ADMINISTRATION Has ADDENDA Primary Care Call Center Primary Care Provider Call. This note was created by a V23 [facility] Call Center ADIS/JEMAL. Please do not alert this contract technical writer by adding as a signer for future communications. Alerts are not monitored by this user, please reach out to [facility] Leadership instead if indicated. Phone number verified as correct. Dahinda is requesting a call in reference to his upcoming knee surgery to see when should he stop taking the blood thinner prior to his appointment. /luis eduardo/ Ronda SIEGELN23 [facility] MSA Signed: 09/16/2023 14:51 Receipt Acknowledged By: 09/16/2023 15:46 /tia RICK REGISTERED NURSE for GAIL L ROSENDA 09/16/2023 ADDENDUM STATUS: COMPLETED Slubber Hand called and spoke to Paola with anticoag clinic and made anticoag staff aware of upcoming TKA scheduled for 10/12 at [facility]. Paola endorses that she would relay information to triage pharmacist and will call vet directly once concrete directions for stopping prescribed eliquis for surgery are determined. /luis eduardo/ GAMAL RICK REGISTERED NURSE Signed: 09/16/2023 15:46 GUILLE LORENZ [facility]
--- OUTSIDE RECORDS SUMMARY | 2023-09-28 10:59 | XMS_ITS | Encounter Summary ---
Author Name [facility] Organization Department of Veter[facility] Affairs Address [address] [place] [address] Support Name Relationship Address Phone TONY CULLEN Next of Kin [address] [place] [address] DEMIAN CULLENIN Emergency Contact [address] [facility] [place] [address] SUBHASH, ELIZABETH Next of Kin JOSE [facility] [address] [place], [place] Insurance Providers: All historical and current [...] Patient's Relationship to Policy Hernández [facility] ([facility]) MEDICARE ADVANTAGE MCR ([facility]) Jun 08, 2019 [id number] SUBHASH,BE RNARD PATIENT [facility] ([facility]) MEDICARE ADVANTAGE MCR ([facility]) Aug 06, 2013 RIVAAB [id number] SUBHASH,BE RNARD PATIENT Selected Encounter This section includes the information on record at [place] for the Encounter. Date/Time Encounter Type Encounter Description Reason Provider Source Sep 17, 2023 08:41 AM MTMS BY PHARM EST 15 MIN TELEPHONE/ANCILL BEN ICD-10-CM Z79.01 [facility] (current) use of anticoagulants Liseth HOPKINS Encounter Template Text not used by [place] Assessments - Encounter Diagnoses This section includes the primary and secondary diagnoses documented for the Encounter. Date/Time Primary/Secondary Diagnosis Diagnosis Name Provider Source Sep 17, 2023 08:41 AM PRIMARY meterman (current) use of anticoagulants Liseth HOPKINS [facility] Sep 17, 2023 08:41 AM SECONDARY Personal history of other venous thrombosis and embolism Liseth HOPKINS [facility] Plan of Treatment: Future Appointments (+ 6 months) and Future Tests (+/- 45 days) The Plan of Treatment section includes future care activities for the patient [facility]. This section includes future appointments and future orders which are active, pending or scheduled. Future Appointments This section includes appointments that were scheduled to occur 6 months from the date of the Encounter, up to a maximum of 20 appointments. The data comes from all [facility]. Appointment Date/Time Appointment Type Appointme nt Facility Name Dec 04, 2023 01:30 PM [facility] Dec 22, 2023 12:30 PM AMBULATORY - SURGERY [facility] Jan 21, 2024 11:00 AM AMBULATORY - MEDICINE [facility] Jan 21, 2024 12:45 PM AMBULATORY - MEDICINE [facility] Jan 21, 2024 01:00 PM AMBULATORY MEDICINE [facility] Active, Pending, and Scheduled Orders This section includes a listing of several types of active, pending, and scheduled orders, including clinic medications orders, diagnostic test orders, procedure orders and consult orders; where the start date of the order is 45 days before the date of the Encounter or 45 days after the date of theEncounter. The data comes from all [facility]. Test Date/Time Test Type Test Details Facility Name Aug 09, 2023 12:00 AM Imaging - General Radiology Order KNEE BILATERAL, 4V STANDING (P) [facility] Sep 09, 2023 12:00 AM Laboratory - Chemi stry Order BASIC METABOLIC PANEL+MG PLASMA [facility] Sep 09, 2023 12:00 AM Laboratory - Chemi stry Order HEMOGLOBIN A1C BLOOD [facility] Sep 09, 2023 12:00 AM Laboratory - Chemi stry Order LIPID PANEL,NON-FASTING PLASMA [facility] Sep 11, 2023 10:36 AM Consult Order COMMUNITY CARE-OPHTHALMOLOGY Cons Gold And Silver Assayer's Choice [facility] Social History: Smoking Status (Most current) and Tobacco Use (All prior to encounter date) This section includes the most current, and the historical, smoking and tobacco- related health factors from the [place] facility where the Encounter took place. Current Smoking Status This section includes the most current smoking, or tobacco-related health factor, from the [place] facility where the Encounter took place. Date/Time Current Smoking Status Comment Facil ity Jul 10, 2023 01:45 PM VA-TOBACCO FORMER USER [facility] Tobacco Use History This section includes a history of the smoking, or tobacco-related health factors, that were collected on or before the date of the Encounter. The data comes from the [place] facility where the Encounter took place. Date/Time Smoking Status/Tobacco Use Comment F acility Jul 10, 2023 01:45 PM VA-TOBACCO QUIT 15 YRS OR MORE [facility] Jun 13, 2022 01:15 PM VA-TOBACCO FORMER USER [facility] Jun 13, 2022 01:15 PM VA-TOBACCO QUIT 15 YRS OR MORE [facility] Apr 29, 2021 12:45 PM VA-TOBACCO FORMER USER [facility] Apr 29, 2021 12:45 PM VA-TOBACCO QUIT 15 YRS OR MORE [facility] May 23, 2019 01:02 PM VA-TOBACCO NEVER USED [facility] Apr 01, 2018 12:53 PM VA-TOBACCO FORMER USER [facility] Apr 01, 2018 12:53 PM VA-TOBACCO QUIT 15 YRS OR MORE [facility] Jun 16, 2017 08:20 AM FORMER TOBACCO USER 7Y OR GREATE R [facility] May 12, 2016 11:04 AM FORMER TOBACCO USER 7Y OR GREATE R [facility] May 24, 2015 01:56 PM FORMER TOBACCO USER 7Y OR GREATE R [facility] Aug 09, 2014 09:40 AM LIFETIME NON-TOBACCO USER [facility] October 25, 2013 09:46 AM FORMER TOBACCO USER 7Y OR GREATE R [facility] Mar 17, 2007 02:35 PM FORMER TOBACCO USER 7Y OR GREATE R [facility] Mar 04, 2006 11:27 AM FORMER TOBACCO USE >1Y [facility] Advance Directives: All historical and current Section Date Range: From patient's date of to the date document was created. This section includes ALL of a patient's completed or amended [place] Advance and Rescinded Directives. The entries below indicate that a directive exists for the patient, but an actual copy is not included with this document. The data comes from all [place] facilities. Date Advance Directives Provider Source Apr 29, 2016 CLINICAL WARNING SANGEETA ALVARES [facility] 2014 CLINICAL WARNING ISAAC DARBY [facility] Apr 01, 2005 ADVANCE DIRECTIVE VALERIE MILLAN [facility] Encounter Notes: All associated encounter notes This section contains the clinical notes associated to the Encounter. 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 Procedure: Left TKA locally Date: 10/20/2023 Surgical bleed risk: special precautions Thromboembolic/Bleed Risk: see above Dashboard flags: none LABS ---- Age: 78 Weight: 238 lb [107.95 kg] (07/10/2023 12:45) Height: Unavailable (07/10/2023 12:45) CREATININE 1.2 PLASMA (07/10/23 11:50) 1.2 PLASMA (04/22/23 12:27) Cockcroft & Gault CrCl=74.97 (Wt: 07/10/2023 12:45) (Actual Body Weight) Collection DT Spec WBC HGB HCT PLT MCV 04/22/2023 12:27 BLOOD 6.53 15.3 46.0 166 95.0 Collection DT Specimen Test Name Result Units Ref Range 08/21/2022 05:30 PLASMA BILIRUBIN, TOTAL 1.0 mg/dL 0.2 - 1.2 04/22/2023 12:27 PLASMA AST/SGOT 16 U/L Ref: <=34 04/22/2023 12:27 PLASMA ALT/SGPT 20 U/L Ref: <=55 08/21/2022 05:30 PLASMA DIR. BILIRUBIN 0.3 mg/dL Ref: <=0.5 A/P: ---- No enoxaparin bridging warranted with DOACs. If this procedure is rescheduled and new instructions are needed OR changes in health (ie: clotting complications, stroke) occur between now and the time of the procedure, anticoagulation clinic should be contacted. If procedure is rescheduled, these recommendations can be applied to new procedure date ONLY IF there are no changes to renal function or health (new thromboembolic event/CVA, recent clotting complications) since consult completion. A new consult should be submitted for reschedules if recent thromboembolic event/CVA occurred or there are renal function changes. DOAC should not be held if procedure is cancelled. - Do not take for 3 days before procedure, the day of procedure OR the day after the procedure. The last dose taken preoperatively is 4 days before the procedure. NO APIXABAN 10/16-10/21/23 - Post-operative resumption of DOAC is up to surgeon and anesthesia team. If there are no major bleeding complications, typically resume DOAC at usual dose 48-72 hours after high bleed risk surgeries. If neuraxial anesthesia is NOT used, resume DOAC based on surgical bleed risk unless otherwise instructed by surgeon. Longer interruptions may possibly increase clotting risks. RESTART 10/21-10/22 -Educated pt on plan. Pt stated surgery may be rescheduled, reviewed holding apixaban for 3 days prior to procedure and restarting 48-72 hrs after procedure. Time: 21 min Patient education of treatment plan: Patient indicates readiness to learn, verbalizes understanding, agreement and satisfaction with the treatment plan. Denies further questions. /luis eduardo/ KEVEN HOPKINS PHARMD CLINCAL LICENSED WEIGHER Signed: 09/17/2023 08:58 KEVEN HOPKINS [facility]
--- OUTSIDE RECORDS SUMMARY | 2023-09-28 10:59 | XMS_ITS | Encounter Summary ---
Author Name [facility] Organization Department of Vetera Affairs Address [address] [place] [address] Support Name Relationship Address Phone TONY CULLEN Next of Kin [address] [place] [address] SUBHASH, TONY Emergency Contact [address] [facility] [place] [address] SUBHASH ELIZABETH Next of Kin JOSE [facility] [address] Insurance Providers: All historical [...] Patient's Relationship to Policy Hernández [facility] (WN) MEDICARE ADVANTAGE MCR ([facility] Jun 08, 2019 [id number] SUBHASH,BE RNARD PATIENT [facility] (WNR) MEDICARE ADVANTAGE MCR ([facility]) Aug 06, 2013 [id number] [phone] SUBHASH,BE RNARD PATIENT Selected Encounter This section includes the information on record at [place] for the Encounter. Date/Time Encounter Type Encounter Description Reason Pro vider Source Sep 24, 2023 11:04 AM Outpatient Encounter COMMUNITY CARE CONSULT IHE [...] 20 appointments. The data comes from all [facility]. Appointment Date/Time Appointment Type Appointme nt Facility Name Dec 04, 2023 01:30 PM AMBULATORY - NONE [facility] Dec 22, 2023 12:30 PM AMBULATORY - SURGERY [facility] Jan 21, 2024 11:00 AM AMBULATORY [...] of theEncounter. The data comes from all [facility]. Test Date/Time Test Type Test Details Facility Name Sep 09, 2023 12:00 AM Laboratory - Chemi stry Order BASIC METABOLIC PANEL+MG PLASMA [facility] Sep 09, 2023 12:00 AM Laboratory - Chemi stry Order HEMOGLOBIN A1C BLOOD [facility] Sep 09, 2023 12:00 AM Laboratory - Chemi stry Order LIPID PANEL,NON-FASTING PLASMA [facility] Sep 11, 2023 10:36 AM Consult Order COMMUNITY CARE-OPHTHALMOLOGY Cons Merchandising Intern's Choice [facility] Social History: Smoking Status (Most current) and Tobacco Use (All prior to encounter date) This section includes the most current, and the historical, smoking and tobacco- related health factors from the [place] facility where the Encounter took place. Current Smoking Status This section includes the most current smoking, or tobacco-related health factor, from the [place] facility where the Encounter took place. Date/Time Current Smoking Status Comment Facil ity Jul 10, 2023 01:45 PM VA-TOBACCO FORMER USER [facility] Tobacco Use History This section includes a history of the smoking, or tobacco-related health factors, that were collected on or before the date of the Encounter. The data comes from the [place] facility where the Encounter took place. Date/Time Smoking Status/Tobacco Use Comment F acility Jul 10, 2023 01:45 PM VA-TOBACCO QUIT 15 YRS OR MORE [facility] Jun 13, 2022 01:15 PM VA-TOBACCO FORMER USER [facility] Jun 13, 2022 01:15 PM VA-TOBACCO QUIT 15 YRS OR MORE [facility] Apr 29, 2021 12:45 PM VA-TOBACCO FORMER USER [facility] Apr 29, 2021 12:45 PM VA-TOBACCO QUIT 15 YRS OR MORE [facility] May 23, 2019 01:02 PM VA-TOBACCO NEVER USED [facility] Apr 01, 2018 12:53 PM VA-TOBACCO FORMER USER [facility] Apr 01, 2018 12:53 PM VA-TOBACCO QUIT 15 YRS OR MORE [facility] Jun 16, 2017 08:20 AM FORMER TOBACCO USER 7Y OR GREATE R [facility] May 12, 2016 11:04 AM FORMER TOBACCO USER 7Y OR GREATE R [facility] May 24, 2015 01:56 PM FORMER TOBACCO USER 7Y OR GREATE R [facility] Aug 09, 2014 09:40 AM LIFETIME NON-TOBACCO USER [facility] October 25, 2013 09:46 AM FORMER TOBACCO USER 7Y OR GREATE R [facility] Mar 17, 2007 02:35 PM FORMER TOBACCO USER 7Y OR GREATE R [facility] Mar 04, 2006 11:27 AM FORMER TOBACCO USE >1Y [facility] Advance Directives: All historical and current Section Date Range: From patient's date of to the date document was created. This section includes ALL of a patient's completed or amended [place] Advance and Rescinded Directives. The entries below indicate that a directive exists for the patient, but an actual copy is not included with this document. The data comes from all [place] facilities. Date Advance Directives Provider Source Apr 29, 2016 CLINICAL WARNING SANGEETA ALVARES [facility] 2014 CLINICAL WARNING ISAAC DARBY [facility] Apr 01, 2005 ADVANCE DIRECTIVE VALERIE MILLAN [facility] Encounter Notes: All associated encounter notes This section contains the clinical notes associated to the Encounter. Date/Time Encounter Note(s) Provider Source Sep 24, 2023 11:04 AM NONVA NOTE: LOCAL TITLE: [facility] PRE-AUTH LETTER (AUTOPRINT) STANDARD TITLE: NONVA NOTE DATE OF NOTE: SEP 24, 2023@11:04 ENTRY DATE: SEP 24, 2023@11:04:15 AUTHOR: LIVAN BUITRAGO COSIGNER: URGENCY: STATUS: COMPLETED Sep SABRINA VILLATOROGISELLE CULLEN [id number] [address] Dear SABRINA CULLEN, Your VA provider has referred you to a provider within the community for care. Your medical care for OPHTHALMOLOGY has been authorized with the community care provider listed below. DO NOT REPORT TO THE [facility] Provider info: Care has been approved for the following vendor: Office name, address, and phone number: [facility] [address] [address] PH: [phone] Please contact the identified provider to schedule your community appointment. If you need assistance with this appointment, please call your facility community care office [facility] Office of Community Care at [phone] during the hours of 8:30AM - 3:00PM. Please follow up with your local [facility] community care office once this is scheduled. This step is needed to ensure your referral duration is maximized and the [place] has accurate referral information for billing purposes. Authorization Number: [id number] Referral Issue Date: 2023-09-14 Expiration Date: 2024-09-13 (subject to change based on first appointment) If you are unable to schedule this appointment or the appointment is no longer needed, please contact the community provider above for notification/rescheduling and then call the [facility] Office of Community Care at [phone] during the hours of 8:30AM - 3:00PM. If you need additional care/services not mentioned above or your authorization has and additional care is needed, please contact your primary care provider for a new referral. To review all care/service(s) approved under your referral, please go to the following link: [facility]([employer]) Co-Payments: If you are required to pay a VA co-payment, you will be billed by the VA for each authorized visit that you attend. However, you are NOT REQUIRED to make co-payments to a community provider. Thank you for the opportunity to serve you. Sincerely, [facility] ([facility]) /luis eduardo/ LIVAN BUITRAGO ADVANCED TALENT ASSOCIATE Signed: 09/24/2023 11:05 LIVAN BUITRAGO [facility]
--- OUTSIDE RECORDS SUMMARY | 2023-09-28 11:00 | XMS_ITS | Clinical Summary ---
Author Name Unknown Organization [facility] Address [address] [place] [address] Care Team Providers Care Chemistry Quality Control Analyst Name Role Phone Elsewhere, Pcp Primary Care Provider Unavailabl e Source Comments Patient records contain information from all sites at [facility]. For routine questions regarding patient records, call [phone] during business hours, M-F 8:00 AM - 5:00 PM Central Time. Record requests for emergency care only can be directed to [phone] at any time.[facility] Allergies No known active allergies Medications Medication Sig Dispensed Refills Start Date End Date Status lisinopriL (PRINIVIL,ZESTRIL) 40 mg tablet TAKE ONE TABLET BY MOUTH EVERY DAY FOR HEART AND BLOOD PRESSURE 12/07/2009 Active apixaban (ELIQUIS) 5 mg tablet TAKE ONE TABLET BY MOUTH EVERY 12 HOURS TO PREVENT BLOOD CLOTS 02/26/2020 Active carboxymethylcellul ose (REFRESH PLUS) 0.5 % ophthalmic solution INSTILL 1 DROP IN BOTH EYES TWICE A DAY FOR DRY EYES 02/03/2020 Active hydroCHLOROthiazide (HYDRODIURIL) 25 mg tablet 1/2 tab 03/02/2020 Active omeprazole (PriLOSEC) [address] capsule TAKE ONE CAPSULE BY MOUTH TWICE A DAY ON AN EMPTY STOMACH, AT LEAST 30 MINUTES PRIOR TO A MEAL 04/29/2021 Active traMADoL (ULTRAM) 50 mg tablet Take 1 tablet by mouth every 8 (eight) hours as needed. 09/02/2021 Active methocarbamoL (ROBAXIN) 750 mg tablet TAKE ONE TABLET BY MOUTH THREE TIMES A DAY FOR BACK/HIP PAIN 08/15/2021 Active diclofenac sodium (VOLTAREN) 1 % gel APPLY 4 GRAMS TOPICALLY TWICE A DAY TO AFFECTED AREA FOR PAIN. *USE DOSE CARD IN BOX TO MEASURE DOSE. MAX 32 GRAMS PER DAY. 08/29/[address] tablet 81 mg. 08/28/2022 Active atorvastatin (LIPITOR) 40 mg tablet Take 1 tablet by mouth at bedtime. 08/20/2022 Active sennosides-docusate sodium (SENOKOT-S) 8.6-50 mg per tablet TAKE 1 TABLET BY MOUTH TWICE A DAY NEEDED FOR CONSTIPATION 11/11/2022 Active tamsulosin (FLOMAX) 0.4 mg 24 hr capsule 0.4 mg. 11/11/2022 Active finasteride (PROSCAR) 5 mg tablet Take 5 mg by mouth daily. Active metoprolol succinate (TOPROL-XL) 50 mg 24 hr tablet Take 50 mg by mouth daily. Do not crush or chew. 1/2 tab Active lidocaine (LIDODERM) 5 % adhesive patch,medicated APPLY 1 PATCH TOPICALLY EVERY DAY NEEDED FOR UP TO 12 HOURS FOR PAIN 06/09/2023 Active Active Problems Problem Noted Date Diagnosed Date Benign Prostatic Hyperplasia Hypertrophy With Ob struction 02/05/2023 Hypertension 12/07/2009 Overview: HTN [Hypertension] Encounters Date Type Department Care Team Description 09/11/2023 2:29 PM CDT - 09/11/2023 11:59 PM CDT Hospital Encounter Department of Radiology in [address] [phone] Juventino Downey M.D. Primary Osteoarthritis Hip Right Discharge Disposition: Home or Self Care 09/10/2023 Orders Only Department of Orthopedic Surgery in [address] [phone] Juventino Downey M.D. Primary Osteoarthritis Hip Right (Primary Dx) 09/10/2023 Clinical Communication Department of Orthopedic Surgery in [address] [phone] Juventino Downey M.D. Order Request 08/10/2023 1:00 PM [employer] COMBAT[employer] CREWMAN Office Visit Department of Orthopedic Surgery in [address] [place] [address] Juventino Downey M.D. Primary Osteoarthritis Knee Left (Primary Dx); Primary Osteoarthritis Knee Right; Primary Osteoarthritis Hip Right 08/10/2023 11:56 AM [employer] CREWMAN - 08/10/2023 11:59 PM [employer] Hospital Encounter Department of Radiology in [place], [place] [address] [address] Juventino Downey M.D. Primary Osteoarthritis Knee Left Discharge Disposition: Home or Self Care 08/10/2023 Clinical Communication Department of Orthopedic Surgery in [place], [place] [address] [address] Juventino Downey M.D. SURGERY DATE from Last 3 Months Immunizations Name Administration Dates Next Due HZV (ZOSTAVAX) 10/10/2011 Influenza (IM) Preservative Free 03/01/2019,03/09 Influenza, Unspecified 04/06/2014,2012,03/29/2012,2010,02/26/2010,03/09/2009,06/16/2008,1 ,03/25/2006,03/31/2005 PCV13 05/12/2016 PPSV23(Discontinued) 10/09/2014 Pneumococcal, Unspecified 08/06/2007 RZV (SHINGRIX) 03/13/2020,12/21/2019 SARS-COV-2 (COVID-19) - PFIZ ER (Discontinued)(12 years or older) 03/08/2021,08/03/2020,07/13/2020 Td (Adult), adsorbed 05/28/2006 Td Preservative Free (TENIVA C, DECAVAC) 03/26/2020,05/28/2006 Td, (Adult) Unspecified 06/17/2002 Tdap 12/15/2012 Tetanus Toxoid, Unspecified 08/02/2004 influenza high dose (65 year s or older) (PF) 03/31/2017,03/25/2016,03/05/2015 influenza vaccine quad (FLUZONE/FLUARIX) (6 months and older)(PF) 03/08/2021,03/13/2020 Family History Medical History Relation Name Comments Parkinsons disease Father Glaucoma Mother Hypertension Mother Relation Name Status Comments Father Mother Social History Tobacco Use Types Packs/Day Years Used Date Smoking Tobacco: Former Smokeless Tobacco: Never Tobacco Cessation:Counseling Given: Not Answered PHQ-2 Answer Date Recorded PHQ-2 Score 0 01/16/2021 Nutrition Answer Date Recorded Nutrition: EVOO Fat Source Unknown 09/26 Nutrition: Servings of Fruits/Vegetables per Day Not on file 09/26/2020 Dental Answer Date Recorded Dental: Regular Dentist Unknown 09/27/19 Sex and Gender Information Value Date Recorded Sex Assigned at Not on file Gender Identity Not on file Sexual Orientation Not on file Last Filed Vital Signs Vital Sign Reading Time Taken Comments Blood Pressure 123/72 09/11/2023 3:12 PM CDT Pulse 55 09/11/2023 2:39 PM CDT Temperature 36.3 ??C (97.3 ??F) 09/11/2023 2:39 PM CD T Respiratory Rate 16 01/16/2021 1:20 PM CDT Oxygen Saturation 98% 09/11/2023 3:12 PM CDT Inhaled Oxygen Concentration - - Weight 105 kg (230 lb 11.2 oz) 01/16/2021 1:20 P M CDT Height 181.3 cm (5' 11.38) 04/27/2014 2:[address] Body Mass Index 31.84 04/27/2014 2:13 PM [employer] Plan of Treatment Upcoming Encounters Date Type Department Care Team (Late st Contact Info) Description 09/30/2023 3:00 PM CDT Comprehensive Visit Department of Orthopedic Surgery in [place], [place] [address] [place] [phone] Juventino Downey M.D. [address] [place] [phone] 10/20/2023 1:30 PM CDT Appointment Department of Radiology in [place], [place] [address], [place] [address] Juventino Downey M.D. [address] [place] [phone] 10/20/2023 2:30 PM CDT Office Visit Department of Family Medicine, [facility], in [place], [place] [address] [address] Janette Be M.D. [address] [phone] 11/18/2023 1:30 PM CDT Office Visit Department of Orthopedic Surgery in [place], [place] [address] [phone] Brendan Porter P.A.-C. [address] [phone] 12/14/2023 10:30 AM CDT Appointment Department of Radiology in [place], [place] [address] [address] Juventino Downey M.D. [address] [phone] 12/14/2023 11:15 AM CDT Office Visit Department of Orthopedic Surgery in [place], [place] [address] [address] Juventino Downey M.D. [address] [phone] Health Maintenance Due Date Last Done Comments Creatinine Level (Kidney Fun ction Test) 08/13/2021 08/13/2020, 10/12/2013 Potassium Level 08/13/2021 08/13/2020, 10/12/2013 Sodium Level 08/13/2021 08/13/2020, 10/12/2013 Depression Screening (Annual PHQ-2) 06/08/2023 Fall Risk Screen (Annual) 06/08/2023 COVID-19 Vaccine (2022-2 4 season) 2023 03/13/2023, 06/13/2022, 03/08/2021, Additional history exists Office Visit for Blood Press ure Check / Re-check 09/10/2024 09/11/2023 DTaP,Tdap,and Td Vaccines (3 - Td or Tdap) 03/26/2030 03/26/2020, 12/15/2012, 05/28/2006, Additional history exists Pneumococcal vaccine (65+ years) Completed 05/12/2016, 10/09/2014, 08/06/2007 Zoster Vaccines Completed 03/13/2020, 12/06, 10/10/2011 Influenza Vaccine Completed 03/13/2023, , 03/08/2021, Additional history exists Procedures Procedure Name Priority Date/Time Associated Diagnosis Comments [place] MAJOR JOINT ASPIRATION AND OR INJECTION RIGHT RAD - Routine (most inpatients and all outpatients) 09/11/2023 3:18 PM CDT Primary Osteoarthritis Hip Right DX KNEE LEFT 4+ VIEWS RAD - Routine (most inpatients and all outpatients) 08/10/2023 12:19 PM [employer]WMAN Primary Osteoarthritis Knee Left EXTI BASIC METABOLIC PANEL, S/P Routine 08/13/2020 4:50 AM SPECIAL [employer] COMBATANT CREWMAN from Last 3 Months or Most Recently Relevant to Health Maintenance Results * FL Major Joint Aspiration And Or Injection Right (09/11/2023 3:18 PM CDT) Anatomical Region Laterality Modality Joint, Musculoskeletal RST L OS, Musculoskeletal ARZ LOS, Procedure FLA LOS, Muskuloskeletal FLA LOS Right Digita l Radiography Impressions 09/11/2023 3:59 PM CDT Successful fluoroscopic-guided therapeutic injection of the right hip joint. Narrative 09/11/2023 3:59 PM CDT EXAM: FL MAJOR JOINT ASPIRATION AND OR INJECTION RIGHT PROCEDURE: Sterile; 1% lidocaine for local anesthesia. Location: RIGHT Needle size: 22G Instilled in Joint: Intra-articular positioning was verified with injection of a small volume iodinated contrast. Following this, a mixture of sterile 4mL 0.5% Ropivacaine and 1 mL (6mg) of Betamethasone was instilled into the joint space. Other: Preprocedure pain 6/10. Postprocedure pain 2/10. Complications: None PREPROCEDURE: Patient seen, evaluated, and history reviewed. Discussed risks, benefits, alternatives for procedure, and obtained informed consent. ??Patient understands information and questions answered. Immediately prior to starting the procedure, in the presence of the assisting personnel, procedural pause was conducted to verify correct patient identity and verification of procedure to be performed, and as applicable, correct side and site, correct patient position, availability of implants, special equipment, or special requirements, and all image and specimen identification data. The roles and responsibilities of care team members, residents, and fellows were discussed. The medication list was reviewed and there are no changes to current medications. Patient Education provided by a care executive officer special warfare team. Ready to learn, no apparent learning barriers were identified. Post-procedure care explained; patient expressed understanding of the content. Procedure Note Marvin Nixon M.D. - 09/11/2023 EXAM: FL MAJOR JOINT ASPIRATION AND OR INJECTION RIGHT PROCEDURE: Sterile; 1% lidocaine for local anesthesia. Location: RIGHT Needle size: 22G Instilled in Joint: Intra-articular positioning was verified withinjection of a small volume iodinated contrast. Following this, a mixture of sterile 4mL 0.5% Ropivacaine and 1 mL (6mg)of Betamethasone was instilled into the joint space. Other: Preprocedure pain 6/10. Postprocedure pain 2/10. Complications: None PREPROCEDURE: Patient seen, evaluated, and history reviewed. Discussedrisks, benefits, alternatives for procedure, and obtained informedconsent. Patient understands information and questions answered.Immediately prior to starting the procedure, in the presence of the assisting personnel, procedural pause was conducted toverify correct patient identity and verification of procedure to beperformed, and as applicable, correct side and site, correct patientposition, availability of implants, special equipment, or special requirements, and all image and specimenidentification data. The roles and responsibilities of care team members,residents, and fellows were discussed. The medication list was reviewedand there are no changes to current medications. Patient Education provided by a care executive officer special warfare team. Ready tristinn, no apparent learning barriers were identified. Post-procedure careexplained; patient expressed understanding of the content. IMPRESSION: Successful fluoroscopic-guided therapeutic injection of the right hipjoint. Juventino SIMPSONG FLUOROSCOPY P ROCEDURES * DX Knee Left 4+ Views (08/10/2023 12:19 PM [employer] COMB[employer] CREWMAN) Anatomical Region Laterality Modality Lower Extremity, Knee, Muscu loskeletal RST LOS, Musculoskeletal ARZ LOS, Muskuloskeletal FLA LOS Left Digit al Radiography Impressions 08/10/2023 12:57 PM [employer] CREWMAN Severe tricompartmental osteoarthritic most prominent of the left medial compartment. Narrative 08/10/2023 12:57 PM [employer] COMB[employer] CREWMAN EXAM: DX KNEE LEFT 4+ VIEWS COMPARISON: Radiograph 12/22/2022 FINDINGS: No appreciable fracture. Tricompartmental osteoarthrosis most prominent in the medial compartments bilaterally with prominent [id number] articulation of the left knee with prominent osteophytic spurring. Moderate joint effusion. Prominent degenerative joint space narrowing of the right patella with mild lateral subluxation. Procedure Note Monty Hightower M.D. - 08/10/2023 EXAM: DX KNEE LEFT 4+ VIEWS COMPARISON: Radiograph 12/22/2022 FINDINGS: No appreciable fracture. Tricompartmental osteoarthrosis mostprominent in the medial compartments bilaterally with xdzvptzzaxlxg-[id number]-[id number] articulation of the left knee with prominent osteophyticspurring. Moderate joint effusion. Prominent degenerative joint space narrowing of the right patella with mild lateralsubluxation. IMPRESSION: Severe tricompartmental osteoarthritic most prominent of the left medialcompartment. Juventino DUNN [facility] IM [facility]ING PROCEDURES from Last 3 Months or Most Recently Relevant to Health Maintenance Care Teams Chemistry Quality Control Analyst Relationship Specialty Start Date End Date Elsewhere, Pcp PCP - General 09/29/21
--- OUTSIDE RECORDS SUMMARY | 2023-09-28 11:00 | XMS_ITS | Encounter Summary ---
Author Name Unknown Organization [facility] Address [address] [place] [address] Care Team Providers Care Bread Oven Operator Name Role Phone Elsewhere, Pcp Primary Care Provider Unavailabl e Reason for Referral * Outpatient (Routine) - Closed Specialty Diagnoses / Procedures Referred By Xuan mcmahan Referred To Contact Diagnoses Primary Osteoarthritis Knee Left Procedures DX Knee Left 4+ Views Juventino Downey M.D. [address] [place] [address] [facility] Region Referral ID Status Reason Start Date Expiration Date Visits Re quested Visits Authorized [id number] Closed 08/07/2023 08/06/2024 1 1 US CLERK Reason for Visit * Outpatient (Routine) - Closed Specialty Diagnoses / Procedures Referred By Xuan mcmahan Referred To Contact Diagnoses Primary Osteoarthritis Knee Left Procedures DX Knee Left 4+ Views Juventino Downey M.D. [address], [place] [address] [facility] Region Referral ID Status Reason Start Date Expiration Date Visits Re quested Visits Authorized [id number] Closed 08/07/2023 08/06/2024 1 1 Encounter Details Date Type Department Care Team (Latest Contact Info) Description 08/10/2023 11:56 AM CENSUS CLERK - 08/10/2023 11:59 PM CENSUS CLERK Hospital Encounter Department of Radiology in [place], [place] [address], [place] [address] Juventino Downey M.D. [address] [place] [address] Primary Osteoarthritis Knee Left Discharge Disposition: Home or Self Care Social History Tobacco Use Types Packs/Day Years Used Date Smoking Tobacco: Former Smokeless Tobacco: Never PHQ-2 Answer Date Recorded PHQ-2 Score 0 01/16/2021 Nutrition Answer Date Recorded Nutrition: EVOO Fat Source Unknown 09/26 Nutrition: Servings of Fruits/Vegetables per Day Not on file 09/26/2020 Dental Answer Date Recorded Dental: Regular Dentist Unknown 09/27/19 Sex and Gender Information Value Date Recorded Sex Assigned at Not on file Gender Identity Not on file Sexual Orientation Not on file documented as of this encounter Medications at Time of Discharge Medication Sig Dispensed Refills Start Date End Date apixaban (ELIQUIS) 5 mg tablet TAKE ONE TABLET BY MOUTH EVERY 12 HOURS TO PREVENT BLOOD CLOTS 02/26/[address] tablet 81 mg. 08/28/2022 atorvastatin (LIPITOR) 40 mg tablet Take 1 tablet by mouth at bedtime. 08/20/2022 carboxymethylcellulose (REFRESH PLUS) 0.5 % ophthalmic solution INSTILL 1 DROP IN BOTH EYES TWICE A DAY FOR DRY EYES 02/03/2020 diclofenac sodium (VOLTAREN) 1 % gel APPLY 4 GRAMS TOPICALLY TWICE A DAY TO AFFECTED AREA FOR PAIN. *USE DOSE CARD IN BOX TO MEASURE DOSE. MAX 32 GRAMS PER DAY. 08/29/2021 finasteride (PROSCAR) 5 mg tablet Take 5 mg by mouth daily. hydroCHLOROthiazide (HYDRODIURIL) 25 mg tablet 1/2 tab 03/02/2020 lidocaine (LIDODERM) 5 % adhesive patch,medicated APPLY 1 PATCH TOPICALLY EVERY DAY NEEDED FOR UP TO 12 HOURS FOR PAIN 06/09/2023 lisinopriL (PRINIVIL,ZESTRIL) 40 mg tablet TAKE ONE TABLET BY MOUTH EVERY DAY FOR HEART AND BLOOD PRESSURE 12/07/2009 methocarbamoL (ROBAXIN) 750 mg tablet TAKE ONE TABLET BY MOUTH THREE TIMES A DAY FOR BACK/HIP PAIN 08/15/2021 metoprolol succinate (TOPROL-XL) 50 mg 24 hr tablet Take 50 mg by mouth daily. Do not crush or chew. 1/2 tab omeprazole (PriLOSEC) [address] capsule TAKE ONE CAPSULE BY MOUTH TWICE A DAY ON AN EMPTY STOMACH, AT LEAST 30 MINUTES PRIOR TO A MEAL 04/29/2021 sennosides-docusate sodium (SENOKOT-S) 8.6-50 mg per tablet TAKE 1 TABLET BY MOUTH TWICE A DAY NEEDED FOR CONSTIPATION 11/11/2022 tamsulosin (FLOMAX) 0.4 mg 24 hr capsule 0.4 mg. 11/11/2022 traMADoL (ULTRAM) 50 mg tablet Take 1 tablet by mouth every 8 (eight) hours as needed. 09/02/2021 documented as of this encounter Plan of Treatment Upcoming Encounters Date Type Department Care Team (Late st Contact Info) Description 09/30/2023 3:00 PM CDT Comprehensive Visit Department of Orthopedic Surgery in [place], [place] [address] [place] [phone] Juventino Downey M.D. [address] [address] 10/20/2023 1:30 PM CDT Appointment Department of Radiology in [place], [place] [address] [address] Juventino Downey M.D. [address] [address] 10/20/2023 2:30 PM CDT Office Visit Department of Family Medicine, [facility], in [place], [place] [address] [address] Janette Be M.D. [address] [address] 11/18/2023 1:30 PM CDT Office Visit Department of Orthopedic Surgery in [place], [place] [address] [place] [address] Brendan Porter P.A.-C. [address] [address] 12/14/2023 10:30 AM CDT Appointment Department of Radiology in [place], [place] [address] [address] Juventino Downey M.D. [address] [address] 12/14/2023 11:15 AM CDT Office Visit Department of Orthopedic Surgery in [place], [place] [address] [address] Juventino Downey M.D. [address] [address] documented as of this encounter Procedures Procedure Name Priority Date/Time Associated Diagnosis Comments DX KNEE LEFT 4+ VIEWS RAD - Routine (most inpatients and all outpatients) 08/10/2023 12:19 PM CENSUS CLERK Primary Osteoarthritis Knee Left documented in this encounter Results * DX Knee Left 4+ Views (08/10/2023 12:19 PM CENSUS CLERK) Anatomical Region Laterality Modality Lower Extremity, Knee, Muscu loskeletal RST LOS, Musculoskeletal ARZ LOS, Muskuloskeletal FLA LOS Left Digit al Radiography Impressions 08/10/2023 12:57 PM CENSUS CLERK Severe tricompartmental osteoarthritic most prominent of the left medial compartment. Narrative 08/10/2023 12:57 PM CENSUS CLERK EXAM: DX KNEE LEFT 4+ VIEWS COMPARISON: Radiograph 12/22/2022 FINDINGS: No appreciable fracture. Tricompartmental osteoarthrosis most prominent in the medial compartments bilaterally with prominent ddcw-ju-imuo articulation of the left knee with prominent osteophytic spurring. Moderate joint effusion. Prominent degenerative joint space narrowing of the right patella with mild lateral subluxation. Procedure Note Monty Hightower M.D. - 08/10/2023 EXAM: DX KNEE LEFT 4+ VIEWS COMPARISON: Radiograph 12/22/2022 FINDINGS: No appreciable fracture. Tricompartmental osteoarthrosis mostprominent in the medial compartments bilaterally with kluyzivrmnyzl-bn-sevc articulation of the left knee with prominent osteophyticspurring. Moderate joint effusion. Prominent degenerative joint space narrowing of the right patella with mild lateralsubluxation. IMPRESSION: Severe tricompartmental osteoarthritic most prominent of the left medialcompartment. Juventino Downey M.D. IMG DIAGNOSTIC IM AGING PROCEDURES documented in this encounter Visit Diagnoses Diagnosis Primary Osteoarthritis Knee Left documented in this encounter Additional Health Concerns Assessment Noted Time PHQ-9 Depression Total Score: 0 04/27/20 14 2:21 PM CENSUS CLERK documented as of this encounter Care Teams Bread Oven Operator Relationship Specialty Start Date End Date Elsewhere, Pcp PCP - General 09/29/21 documented as of this encounter
--- OUTSIDE RECORDS SUMMARY | 2023-09-28 11:00 | XMS_ITS | Encounter Summary ---
Author Name Unknown Organization [facility] Address [address] [place] [address] Care Team Providers Care Exchange Teller Name Role Phone Elsewhere, Pcp Primary Care Provider Unavailabl e Reason for Referral * Outpatient (Routine) - Closed Specialty Diagnoses / Procedures Referred By Contac t Referred To Contact Diagnoses Primary Osteoarthritis Hip Right Procedures FL Major Joint Aspiration And Or Injection Right TX ARTHCS ASP/INJ MJR JT WO US TX FLUORO GUIDE NDL PLC Juventino Downey M.D. [address], [place] [address] [facility] Region Referral ID Status Reason Start Date Expiration Date Visits Re quested Visits Authorized [id number] Closed 09/10/2023 09/09/2024 1 1 Reason for Visit * Outpatient (Routine) - Closed Specialty Diagnoses / Procedures Referred By Contac t Referred To Contact Diagnoses Primary Osteoarthritis Hip Right Procedures FL Major Joint Aspiration And Or Injection Right TX ARTHCS ASP/INJ MJR JT WO US TX FLUORO GUIDE NDL PLC Juventino Downey M.D. [address] [place] [address] [facility] Region Referral ID Status Reason Start Date Expiration Date Visits Re quested Visits Authorized [id number] Closed 09/10/2023 09/09/2024 1 1 Encounter Details Date Type Department Care Team (Latest Contact Info) Description 09/11/2023 2:29 PM CDT - 09/11/2023 11:59 PM CDT Hospital Encounter Department of Radiology in [place], [place] [address] [place] [address] Juventino Downey M.D. [address] [place] [address] Primary Osteoarthritis Hip Right Discharge Disposition: Home or Self Care Social [...] on file documented as of this encounter Last Filed Vital Signs Vital Sign Reading Time Taken Comments Blood Pressure 123/72 09/11/2023 3:12 PM CDT Pulse 55 09/11/2023 2:39 PM CDT Temperature 36.3 ??C (97.3 ??F) 09/11/2023 2:39 PM CD T Respiratory Rate - - Oxygen Saturation 98% 09/11/2023 3:12 PM CDT Inhaled Oxygen Concentration - - Weight - - Height - - Body Mass Index - - documented in this encounter Medications at Time of Discharge [...] needed. 09/02/2021 documented as of this encounter Nursing Notes * Nikki Perez RAlexN. - 09/11/2023 3:00 PM CDT Patient denies diabetes, active infections, takes Eliquis and ASA daily. Patient tolerated procedure without complication and site(s) were well coagulated with adhesive band aids applied. Patient was able to ambulate independently per baseline and was discharged ambulatory. documented in this encounter Plan of Treatment Upcoming Encounters Date Type Department Care Team (Late st Contact Info) Description 09/30/2023 3:00 PM CDT Comprehensive Visit Department of Orthopedic Surgery in [place], [place] [address] [place] [address] Juventino Downey M.D. [address] [place] [phone] 10/20/2023 1:30 PM CDT Appointment Department of Radiology in [place], [place] [address] [place] [address], [place] [address] Juventino Downey M.D. [address] [place] [address] 10/20/2023 2:30 PM CDT Office Visit Department of Family Medicine, [facility], in [place], [place] [address] [place] [address] Janette Be M.D. [address] [address] 11/18/2023 1:30 PM CDT Office Visit Department of Orthopedic Surgery in [place], [place] [address] [place] [address] Brendan Porter, Kristine [address] [address] 12/14/2023 10:30 AM CDT Appointment Department of Radiology in [place], [place] [address] [place] [address], [place] [address] Juventino Downey M.D. [address] [place] [address] 12/14/2023 11:15 AM CDT Office Visit Department of Orthopedic Surgery in [place], [place] [address] [place] [phone] Juventino Downey M.D. [address] [phone] documented as of this encounter Procedures Procedure Name Priority Date/Time Associated Diagnosis Comments FL MAJOR JOINT ASPIRATION AND OR INJECTION RIGHT RAD - Routine (most inpatients and all outpatients) 09/11/2023 3:18 PM CDT Primary Osteoarthritis Hip Right documented in this encounter Results * FL Major Joint Aspiration And [...] medications. Patient Education provided by a care water team leader. Ready to learn, no apparent learning barriers [...] medications. Patient Education provided by a care water team leader. [place] gannon, no apparent learning barriers were identified. Post-procedure careexplained; patient expressed understanding of the content. IMPRESSION: Successful fluoroscopic-guided therapeutic injection of the right hipjoint. Juventino Downey M.D. IMG FLUOROSCOPY P ROCEDURES documented in this encounter Visit Diagnoses Diagnosis Primary Osteoarthritis Hip Right documented in this encounter Administered Medications Inactive Administered Medications - up to 3 most recent administrations Medication Order MAR Action Action Date Dose Rate Site betamethasone acetate & sodium phosphate injection 6 mg (CELESTONE SOLUSPAN) 6 mg, intra-articular, Once, On Thu09/11/23 at 1515, For 1 dose, Protect from light. Given 09/11/2023 3:13 PM CDT 6 mg iohexoL 300 mg iodine/mL solution 1 mL (OMNIPAQUE) 1 mL, intra-articular, Once in imaging, contrast, Starting on Thu09/11/23 at 1456, For 1 dose Given 09/11/2023 3:13 PM CDT 1 mL lidocaine 10 mg/mL (1 %) injection 2.5 mL (XYLOCAINE) 2.5 mL, intra-articular, Once, On Thu09/11/23 at 1515, For 1 dose Given 09/11/2023 3:13 PM CDT 2.5 mL ROPivacaine (PF) 5 mg/mL (0.5 %) injection 20 mg (NAROPIN) 20 mg (4 mL), intra-articular, Once, On Thu09/11/23 at 1515, For 1 dose Given 09/11/2023 3:13 PM CDT 20 mg sodium bicarbonate injection 0.25 mEq 0.25 mEq (0.25 mL), intra-articular, Once, On Thu09/11/23 at 1515, For 1 dose Given 09/11/2023 3:13 PM CDT 0.25 mEq documented in this encounter Additional Health Concerns Assessment Noted Time PHQ-9 Depression Total Score: 0 04/27/20 14 2:21 PM FLAMER SEALER documented as of this encounter Care Teams Exchange Teller Relationship Specialty Start Date End Date Elsewhere, Pcp PCP - General 09/29/21 documented as of this encounter
--- OUTSIDE RECORDS SUMMARY | 2023-09-28 11:00 | XMS_ITS | Encounter Summary ---
Author Name Unknown Organization [facility] Address [address] [place] [address] Care Team Providers Care Pool Table Operator Name Role Phone Elsewhere, Pcp Primary Care Provider Unavailabl e Reason for Referral * Outpatient (Routine) - Closed Specialty Diagnoses / Procedures Referred By Contac t Referred To Contact Diagnoses Primary Osteoarthritis Hip Right Procedures FL Major Joint Aspiration And Or Injection Right MA ARTHCS ASP/INJ MJR JT WO US MA FLUORO GUIDE NDL PLC Juventino Downey M.D. [address] [place] [address] [facility] Region Referral ID Status Reason Start Date Expiration Date Visits Re quested Visits Authorized [id number] Closed 09/10/2023 09/09/2024 1 1 Encounter Details Date Type Department Care Team (Late st Contact Info) Description 09/10/2023 Orders Only Department of Orthopedic Surgery in [place], [place] [address] [place] [address] Juventino Downey M.D. [address] [place] [address] Primary Osteoarthritis Hip Right (Primary Dx) Social History Tobacco Use Types Packs/Day Years [...] on file documented as of this encounter Plan of Treatment Upcoming Encounters Date Type Department Care Team (Late st Contact Info) Description 09/30/2023 3:00 PM CDT Comprehensive Visit Department of Orthopedic Surgery in [place], [place] [address] [address] Juventino Downey M.D. [address] [address] 10/20/2023 1:30 PM CDT Appointment Department of Radiology in [place], [place] [address] [address] Juventino Downey M.D. [address] [address] 10/20/2023 2:30 PM CDT Office Visit Department of Family Medicine, [facility], in [place], [place] [address] [address] Janette Be M.D. [address] [address] 11/18/2023 1:30 PM CDT Office Visit Department of Orthopedic Surgery in [place], [place] [address] [address] Brendan Porter, PAlexAAlex-[place] [address] [address] 12/14/2023 10:30 AM CDT Appointment Department of Radiology in [place], [place] [address] [place] [address] Juventino Downey M.D. [address], [place] [address] 12/14/2023 11:15 AM CDT Office Visit Department of Orthopedic Surgery in [place], [place] [address] [place] [address] Juventino Downey M.D. [address] [place] [address] documented as of this encounter Results * FL Major Joint [...] medications. Patient Education provided by a care long line teamster. Ready to learn, no apparent learning barriers [...] medications. Patient Education provided by a care long line teamster. Ready tolearn, no apparent learning barriers were identified. Post-procedure careexplained; patient expressed understanding of the content. IMPRESSION: Successful fluoroscopic-guided therapeutic injection of the right hipjoint. Juventino Downey M.D. IMRizwan FLUOROSCOPY P ROCEDURES documented in this encounter Visit Diagnoses Diagnosis Primary Osteoarthritis Hip Right- Primary Primary Osteoarthritis Hip Right documented in this encounter Additional Health Concerns Assessment Noted Time PHQ-9 Depression Total Score: 0 04/27/20 14 2:21 PM CRISIS INTERVENTION COUNSELOR documented as of this encounter Care Teams Pool Table Operator Relationship Specialty Start Date End Date Elsewhere, Pcp PCP - General 09/29/21 documented as of this encounter
--- OUTSIDE RECORDS SUMMARY | 2023-09-28 11:00 | XMS_ITS | Clinical Summary ---
Author Name Unknown Organization [facility] Address [place], [place] [address] Care Team Providers Care Associate Product Manager Name Role Phone Sai Kuo MD Primary Care Provider [phone] Allergies No known active allergies Medications Medication Sig Dispensed Refills Start Date End Date Status ATENOLOL ORAL Take 50 mg by mouth once daily. Active LISINOPRIL ORAL Take 40 mg by mouth once daily in the evening. Active RANITIDINE HCL ORAL Take 150 mg by mouth 2 times daily. Active OMEPRAZOLE (PRILOSEC ORAL) Take by mouth. Active Active Problems Problem Noted Date Diagnosed Date Allergic rhinitis 12/22/2020 Cataract 12/22/2020 Constipation 12/22/2020 Diaphragmatic hernia 12/22/2020 Gastroesophageal reflux disease 12/22/2020 Gout 12/22/2020 Hypertrophy of prostate with urinary obstruction and other lower urinary tract symptoms (LUTS) 12/22/2020 Obesity 12/22/2020 Obstructive sleep apnea syndrome 12/22/2020 Osteoarthritis 12/22/2020 Overview: Aug 30, 2012 Entered By: VALERY BRITO Comment: S/P left total hip in 2005. Other and unspecified hyperlipidemia 12/22/2020 Thrombosed external hemorrhoids 12/22/2020 Hypertension 12/07/2009 Overview: HTN [Hypertension] Social History Tobacco Use Types Packs/Day Years Used Date Smoking Tobacco: Former Cigarettes 0.8 4 Alcohol Use Standard Drinks/Week Comments Not Asked 0 (1 standard drink = 0.6 oz pur e alcohol) Sex and Gender Information Value Date Recorded Sex Assigned at Not on file Gender Identity Not on file Sexual Orientation Not on file Obstetrics History Last Filed Vital Signs Vital Sign Reading Time Taken Comments Blood Pressure 116/57 12/22/2020 9:48 AM CDT Pulse 56 12/22/2020 9:48 AM CDT Temperature 36.6 ??C (97.9 ??F) 12/22/2020 9:34 AM CD T Respiratory Rate 20 12/22/2020 9:34 AM CDT Oxygen Saturation 97% 12/22/2020 9:48 AM CDT Inhaled Oxygen Concentration - - Weight 102.5 kg (226 lb) 12/22/2020 9:34 AM CDT Height 182.9 cm (6') 12/22/2020 9:34 AM CDT Body Mass Index 30.65 12/22/2020 9:34 AM CDT Plan of Treatment Upcoming Encounters Date Type Department Care Team (Latest Contact Info) Description 10/20/2023 1:30 PM CDT Appointment [facility] Medical Imaging [address] [place] [address] 11/04/2023 7:30 AM CDT Hospital Encounter [address] [address] Juventino Downey MD [address] [address] 11/04/2023 7:30 AM CDT - 11/04/2023 9:09 AM CDT Surgery [address] [address] Juventino Downey MD [address] [address] ARTHROPLASTY KNEE ROBOTIC ASSISTED-LEFT Scheduled Procedures Name Priority Associated Diagnoses Date/Ti me ARTHROPLASTY KNEE ROBOTIC ASSISTED 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
--- OUTSIDE RECORDS SUMMARY | 2023-09-28 11:00 | XMS_ITS ---
Author Name Unknown Organization [facility] Address [address] [place] [address] Care Team Providers Care Church Official Name Role Phone Unavailable Unavailable Unavailable Surgery Details Not on file Complications Check Surgery Details section. Procedure Estimated Blood Loss Check Surgery Details section. Procedure Findings Check Surgery Details section. Procedure Specimens Taken Check Surgery Details section.
--- OUTSIDE RECORDS SUMMARY | 2023-09-28 11:00 | XMS_ITS | Encounter Summary ---
Author Name Unknown Organization [facility] Address [address] [place] [address] Care Team Providers Care Leather Finisher Name Role Phone Elsewhere, Pcp Primary Care Provider Unavailabl e Reason for Visit * Reason Onset Date Comments SURGERY DATE 08/10/2023 Encounter Details Date Type Department Care Team (Late Contact Info) Description 08/10/2023 Clinical Communication Department of Orthopedic Surgery in [place], [place] [address] [place] [address] Juventino Downey M.D. [address], [place] [address] SURGERY DATE Social History Tobacco Use Types Packs/Day Years [...] Encounters Date Type Department Care Team (Late Contact Info) Description 09/30/2023 3:00 PM CDT Comprehensive Visit Department of Orthopedic Surgery in [place], [place] [address], [place] [phone] Juventino Downey M.D. [address], [place] [address] 10/20/2023 1:30 PM CDT Appointment Department of Radiology in [place], [place] [address] [place] [address], [place] [address] Juventino Downey M.D. [address] [place] [address] 10/20/2023 2:30 PM CDT Office Visit Department of Family Medicine, [facility], in [place], [place] [address] [address] Janette Be M.D. [address] [address] 11/18/2023 1:30 PM CDT Office Visit Department of Orthopedic Surgery in [place], [place] [address] [place] [address] Brendan Porter, Vel-[place] [address] [address] 12/14/2023 10:30 AM CDT Appointment Department of Radiology in [place], [place] [address] [place] [phone] Juventino Downey M.D. [address] [place] [address] 12/14/2023 11:15 AM CDT Office Visit Department of Orthopedic Surgery in [place], [place] [address] [place] [phone] Juventino Downey M.D. [address] [phone] documented as of this encounter Visit Diagnoses Not on filedocumented in this encounter Additional Health Concerns Assessment Noted Time PHQ-9 Depression Total Score: 0 04/27/20 14 2:21 PM CLAY TEMPERER documented as of this encounter Care Teams Leather Finisher Relationship Specialty Start Date End Date Elsewhere, Pcp PCP - General 09/29/21 documented as of this encounter
--- OUTSIDE RECORDS SUMMARY | 2023-09-28 11:00 | XMS_ITS | Referral Summary ---
Author Name Unknown Organization [facility] Address [address] [place] [address] Care Team Providers Care Blacksmith Hammer Operator Name Role Phone Elsewhere, Pcp Primary Care Provider Unavailabl e Source Comments Patient records contain information from all sites at [facility]. For routine questions regarding patient records, call [phone] during business hours, M-F 8:00 AM - 5:00 PM Central Time. Record requests for emergency care only can be directed to [phone] at any time.[facility] Encounters Date Type Department Care Team Description 09/11/2023 2:29 PM CDT - 09/11/2023 11:59 PM CDT Hospital Encounter Department of Radiology in [place], [place] [address] [place] [phone] Juventino Downey M.D. Primary Osteoarthritis Hip Right Discharge Disposition: Home or Self Care 09/10/2023 Orders Only Department of Orthopedic Surgery in [place], [place] [address] [place] [phone] Juventino Downey M.D. Primary Osteoarthritis Hip Right (Primary Dx) 09/10/2023 Clinical Communication Department of Orthopedic Surgery in [place], [place] [address] [place] [phone] Juventino Downey M.D. Order Request 08/10/2023 Clinical Communication Department of Orthopedic Surgery in [place], [place] [address] [place] [phone] Juventino Downey M.D. SURGERY DATE 08/10/2023 11:56 AM TAR ROOFER - 08/10/2023 11:59 PM TAR ROOFER Hospital Encounter Department of Radiology in [place], [place] [address] [place] [phone] Juventino Downey M.D. Primary Osteoarthritis Knee Left Discharge Disposition: Home or Self Care 08/10/2023 1:00 PM TAR ROOFER Office Visit Department of Orthopedic Surgery in [place], [place] [address] [place] [phone] Juventino Downey M.D. Primary Osteoarthritis Knee Left (Primary Dx); Primary Osteoarthritis Knee Right; Primary Osteoarthritis Hip Right from Last 3 Months Allergies No known active allergies Medications Medication [...] struction 02/05/2023 Hypertension 12/07/2009 Overview: HTN [Hypertension] Immunizations Name Administration Dates Next Due HZV [...] quad (FLUZONE/FLUARIX) (6 months and older)(PF) 03/08/2021,03/13/2020 Social History Tobacco Use Types Packs/Day Years [...] Body Mass Index 31.84 04/27/2014 2:13 PM TAR ROOFER Plan of Treatment Upcoming Encounters Date Type Department Care Team (Late st Contact Info) Description 09/30/2023 3:00 PM CDT Comprehensive Visit Department of Orthopedic Surgery in [place], [place] [address], [place] [address] Juventino Downey M.D. [address], [place] [phone] 10/20/2023 1:30 PM CDT Appointment Department of Radiology in [place], [place] [address] [place] [phone] Juventino Downey M.D. [address], [place] [address] 10/20/2023 2:30 PM CDT Office Visit Department of Family Medicine, [facility], in [place], [place] [address] [phone] Janette Be M.D. [address] [phone] 11/18/2023 1:30 PM CDT Office Visit Department of Orthopedic Surgery in [place], [place] [address] [phone] Brendan Porter P.A.-C. [address] [phone] 12/14/2023 10:30 AM CDT Appointment Department of Radiology in [place], [place] [address] [place] [address] Juventino Downey M.D. [address] [phone] 12/14/2023 11:15 AM CDT Office Visit Department of Orthopedic Surgery in [place], [place] [address] [phone] Juventino Downey M.D. [address] [phone] Procedures Procedure Name Priority Date/Time Associated Diagnosis Comments FL MAJOR JOINT ASPIRATION AND OR INJECTION RIGHT RAD - Routine (most inpatients and all outpatients) 09/11/2023 3:18 PM CDT Primary Osteoarthritis Hip Right DX KNEE LEFT 4+ VIEWS RAD - Routine (most inpatients and all outpatients) 08/10/2023 12:19 PM TAR ROOFER Primary Osteoarthritis Knee Left EXTI BASIC METABOLIC PANEL, S/P Routine 08/13/2020 4:50 AM TAR ROOFER from Last 3 Months or Most Recently [...] medications. Patient Education provided by a care wallpaper remover steam. Ready to learn, no apparent learning barriers [...] medications. Patient Education provided by a care wallpaper remover steam. [place] gannon, no apparent learning barriers were identified. Post-procedure careexplained; patient expressed understanding of the content. IMPRESSION: Successful fluoroscopic-guided therapeutic injection of the right hipjoint. Juventino Downey M.D. IMG FLUOROSCOPY P ROCEDURES * DX Knee Left 4+ Views (08/10/2023 12:19 PM TAR ROOFER) Anatomical Region Laterality Modality Lower Extremity, Knee, Muscu loskeletal RST LOS, Musculoskeletal ARZ LOS, Muskuloskeletal FLA LOS Left Digit al Radiography Impressions 08/10/2023 12:57 PM TAR ROOFER Severe tricompartmental osteoarthritic most prominent of the left medial compartment. Narrative 08/10/2023 12:57 PM TAR ROOFER EXAM: DX KNEE LEFT 4+ VIEWS COMPARISON: Radiograph 12/22/2022 FINDINGS: No appreciable fracture. Tricompartmental osteoarthrosis most prominent in the medial compartments bilaterally with prominent npxj-fx-vneg articulation of the left knee with prominent osteophytic spurring. Moderate joint effusion. Prominent degenerative joint space narrowing of the right patella with mild lateral subluxation. Procedure Note Monty Hightower M.D. - 08/10/2023 EXAM: DX KNEE LEFT 4+ VIEWS COMPARISON: Radiograph 12/22/2022 FINDINGS: No appreciable fracture. Tricompartmental osteoarthrosis mostprominent in the medial compartments bilaterally with jwwftfqfydgnv-am-hpvl articulation of the left knee with prominent osteophyticspurring. Moderate joint effusion. Prominent degenerative joint space narrowing of the right patella with mild lateralsubluxation. IMPRESSION: Severe tricompartmental osteoarthritic most prominent of the left medialcompartment. Juventino Downey M.D. IMG DIAGNOSTIC IM AGING PROCEDURES from Last 3 Months or Most Recently Relevant to Health Maintenance Care Teams Blacksmith Hammer Operator Relationship Specialty Start Date End Date Elsewhere, Pcp PCP - General 09/29/21
--- OUTSIDE RECORDS SUMMARY | 2023-09-28 11:00 | XMS_ITS | Encounter Summary ---
Author Name Unknown Organization [facility] Address [address] [place] [address] Care Team Providers Care Applications Processor Name Role Phone Elsewhere, Pcp Primary Care Provider Unavailabl e Reason for Visit * Reason Onset Date Comments Order Request 09/10/2023 Encounter Details Date Type Department Care Team (Late Contact Info) Description 09/10/2023 Clinical Communication Department of Orthopedic Surgery in [place], [place] [address] [place] [address] Juventino Downey M.D. [address], [place] [address] Order Request Social History Tobacco Use Types Packs/Day Years [...] Comprehensive Visit Department of Orthopedic Surgery in [place], [place] [address], [place] [phone] Juventino Downey M.D. [address], [place] [address] 10/20/2023 1:30 PM CDT Appointment Department of Radiology in [place], [place] [address] [place] [address], [place] [phone] Juventino Downey M.D. [address] [place] [phone] 10/20/2023 2:30 PM CDT Office Visit Department of Family Medicine, [facility], in [place], [place] [address] [phone] Janette Be M.D. [address] [phone] 11/18/2023 1:30 PM CDT Office Visit Department of Orthopedic Surgery in [place], [place] [address] [place] [phone] Brendan Porter, Vel-Israel [address] [phone] 12/14/2023 10:30 AM CDT Appointment Department of Radiology in [place], [place] [address] [place] [phone] Juventino Downey M.D. [address] [place] [phone] 12/14/2023 11:15 AM CDT Office Visit Department of Orthopedic Surgery in [place], [place] [address] [place] [phone] Juventino Downey M.D. [address] [phone] documented as of this encounter Visit Diagnoses Not on filedocumented in this encounter Additional Health Concerns Assessment Noted Time PHQ-9 Depression Total Score: 0 04/27/20 14 2:21 PM DELIVERY ANALYST documented as of this encounter Care Teams Applications Processor Relationship Specialty Start Date End Date Elsewhere, Pcp PCP - General 09/29/21 documented as of this encounter
--- OUTSIDE RECORDS SUMMARY | 2023-09-28 11:01 | XMS_ITS | Encounter Summary ---
Author Name Unknown Organization [facility] Address [address] [place] [address] Care Team Providers Care Senior Insight Manager Name Role Phone Elsewhere, Pcp Primary Care Provider Unavailabl e Reason for Visit * Reason Onset Date Comments Return Call Request 06/03/2023 Encounter Details Date Type Department Care Team (Latest Contact Info) Description 06/03/2023 Clinical Communication Department of Orthopedic Surgery in [place], [place] [address] [place] [address] Juventino Downey M.D. [address] [place] [address] Return Call Request Social History Tobacco Use Types Packs/Day [...] Upcoming Encounters Date Type Department Care Team ( Contact Info) Description 09/30/2023 3:00 PM CDT Comprehensive Visit Department of Orthopedic Surgery in [place], [place] [address] [place] [address] Juventino Downey M.D. [address] [place] [address] 10/20/2023 1:30 PM CDT Appointment Department of Radiology in [place], [place] [address] [place] [address] Juventino Downey M.D. [address], [place] [address] 10/20/2023 2:30 PM CDT Office Visit Department of Family Medicine, [facility], in [place], [place] [address] [address] Janette Be M.D. [address] [place] [phone] 11/18/2023 1:30 PM CDT Office Visit Department of Orthopedic Surgery in [place], [place] [address] [address] Brendan Porter, PEber-Israel [address] [place] [phone] 12/14/2023 10:30 AM CDT Appointment Department of Radiology in [place], [place] [address] [address] Juventino Downey M.D. [address] [place] [phone] 12/14/2023 11:15 AM CDT Office Visit Department of Orthopedic Surgery in [place], [place] [address] [address] Juventino Downey M.D. 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
--- OUTSIDE RECORDS SUMMARY | 2023-09-28 11:01 | XMS_ITS | Encounter Summary ---
Author Name Unknown Organization [facility] Address [address] [place] [address] Care Team Providers Care Teacher Lip Reading Name Role Phone Elsewhere, Pcp Primary Care Provider Unavailabl e Reason for Referral * Outpatient (Routine) - Authorized Specialty Diagnoses / Procedures Referred By Xuan t Referred To Contact Diagnoses Primary Osteoarthritis Knee Left Procedures DX Knee Left Standing 3 Views Juvenitno Downey M.D. [address] [phone] [facility] Region Referral ID Status Reason Start Date Expiration Date V isits Requested Visits Authorized [id number] Authorized 08/10/2023 08/09/2024 1 1 CTOR NEW PRODUCT * MRI/CAT/PET Scan (Routine) - Authorized Specialty Diagnoses / Procedures Referred By Contac t Referred To Contact Radiology Diagnoses Primary Osteoarthritis Knee Left Procedures CT Knee Left without IV Contrast [place] CT LWR EXT WO CNTRST Juventino Downey M.D. [address] [place] [address] [facility] Region Referral ID Status Reason Start Date Expiration Date V isits Requested Visits Authorized [id number] Authorized 08/10/2023 08/09/2024 1 1 CTOR NEW PRODUCT * Outpatient (Routine) - Authorized Specialty Diagnoses / Procedures Referred By Contac t Referred To Contact Family Medicine Diagnoses Primary Osteoarthritis Knee Left Juventino Downey M.D. [address] [place] [address] [facility] Region Referral ID Status Reason Start Date Expiration Date V isits Requested Visits Authorized [id number] Authorized 08/10/2023 02/08/2025 1 1 CTOR NEW PRODUCT * Outpatient (Routine) - Authorized Specialty Diagnoses / Procedures Referred By Contac t Referred To Contact Orthopedic Surgery Juventino Downey M.D. [address], [place] [address] [facility] Region Referral ID Status Reason Start Date Expiration Date V isits Requested Visits Authorized [id number] Authorized 08/10/2023 02/08/2025 1 1 CTOR NEW PRODUCT * Outpatient (Routine) - Authorized Specialty Diagnoses / Procedures Referred By Contac t Referred To Contact Orthopedic Surgery Juventino Downey M.D. [address], [place] [address] Yani Riley P.A.-C., P.A. [address] [place] [address] Referral ID Status Reason Start Date Expiration Date V isits Requested Visits Authorized [id number] Authorized 08/10/2023 02/08/2025 1 1 CTOR NEW PRODUCT * Outpatient (Routine) - Authorized Specialty Diagnoses / Procedures Referred By Contac t Referred To Contact Orthopedic Surgery Juventino Downey M.D. [address], [place] [address] [facility] Region Referral ID Status Reason Start Date Expiration Date V isits Requested Visits Authorized [id number] Authorized 08/10/2023 02/08/2025 1 1 CTOR NEW PRODUCT * Outpatient (Routine) - Closed Specialty Diagnoses / Procedures Referred By Xuan mcmahan Referred To Contact Diagnoses Primary Osteoarthritis Knee Left Procedures DX Knee Left 4+ Views Juventino Downey M.D. [address] [place] [phone] [facility] Region Referral ID Status Reason Start Date Expiration Date Visits Re quested Visits Authorized [id number] Closed 08/07/2023 08/06/2024 1 1 CTOR NEW PRODUCT Reason for Visit * Reason Comments Pre-op Exam Arthroplasty * Appointment Request (Routine) - Closed Specialty Diagnoses / Procedures Referred By Xuan mcmahan Referred To Contact Orthopedic Surgery Diagnoses Discuss Left and Right TKA, and right hip, and would like xrays. Procedures ORS EST Lorenza Cameron M.B.BAlexS. [address] [place] [address] Juventino Downey M.D. [address] [place] [phone] Referral ID Status Reason Start Date Expiration Date Visits Re quested Visits Authorized [id number] Closed 08/10/2023 02/06/2024 1 1 Encounter Details Date Type Department Care Team (Latest Contact Info) Description 08/10/2023 1:00 PM DIRECTOR NEW PRODUCT Office Visit Department of Orthopedic Surgery in [place], [place] [address] [place] [phone] Juventino Downey M.D. [address] [place] [phone] Primary Osteoarthritis Knee Left (Primary Dx); Primary Osteoarthritis Knee Right; Primary Osteoarthritis Hip Right Social History Tobacco Use Types Packs/Day Years [...] on file documented as of this encounter Patient Instructions * Patient Instructions* Jaida Bloom L.P.N. - 08/10/2023 1:00 PM DIRECTOR NEW PRODUCT Patient to be scheduled for left total knee arthroplasty with Dr. Downey. [facility] Knee Replacement Patient Education booklet was given and reviewed with patient verbalizing understanding of information. [facility] Medical Necessity form was completed and given to Surgery Coordinator. Booklet given and reviewed on Treating Constipation Caused by Pain Medications with patient verbalizing understanding of information. Application for Disability Parking Certificate was completed and given to patient. Reviewed pre-op dental care and post-op dental prophylactic antibiotic guidelines with patient with patient verbalizing understanding of guidelines. Patient was given DIMAS wipes and Howto Cleanse Your Skin Before Surgery brochure with patient verbalizing understanding of usage. Reviewed how to care for incision post-operatively with handouts given on Aquacel dressing. Patient is onEliquis for previous history of blood clot in right leg. Patient is followed at [place] for [facility]. Information was given and reviewed on Pre-operative teaching class at [facility]. Patient will call [facility] to confirm the pre-operative session they will attend. Patient does live alone andplans on going to a rehabilitation facility after surgery. CTOR NEW PRODUCT documented in this encounter Progress Notes * Juventino Downey M.D. - 08/10/2023 1:00 PM CST HPI: David is a pleasant 77-year-old gentleman who comes in today for known severe osteoarthritis of bilateral knees and his right hip. He has undergone multiple cortisone injections in all 3 joints. Hehas undergone hyaluronic acid injections in both knees. He has done NSAIDs and therapy for all 3 joints. His left knee in particular is really slowing it down. He arrives today in a wheelchair. He marianela ids all weight-bearing activity. He is finally ready to schedule a left knee replacement. PHYSICAL EXAM: He is a healthy-appearing gentleman in no acute distress. Examination of bilateral knees reveals benign skin. He is neurovascular intact and ligamentously stable. He does have significant tenderness over both medial and lateral joint lines bilaterally. Range of motion of his left knee is 0-105 degre es. Examination of his right hip reveals benign skin. Hip range of motion is limited in quite painful. IMAGING: X-rays taken today are independently reviewed. He has severe tricompartmental osteoarthritis of theright knee with complete collapse of medial joint space. He has significant subchondral sclerosis and osteophyte formation. ASSESSMENT AND PLAN: David is a pleasant 77-year-old gentleman with severe bilateral knee osteoarthritis and severe right hip osteoarthritis. He has failed exhaustive conservative management including NSAIDs, therapy, and multiple injections for all 3 joints. He would like to proceed with a left knee replacement. Risks, benefits, and alternatives to left robotically assisted total knee arthroplasty were explained. He did express understanding of this and agreed with the decision proceed with surgery. He will do this as an inpatient and will need a group home stay afterwards as [place] CTOR NEW PRODUCT documented in this encounter Plan of Treatment Upcoming Encounters Date Type Department Care Team (Late st Contact Info) Description 09/30/2023 3:00 PM CDT Comprehensive Visit Department of Orthopedic Surgery in [place], [place] [address] [place] [phone] Juventino Downey M.D. [address] [place] [phone] 10/20/2023 1:30 PM CDT Appointment Department of Radiology in [place], [place] [address] [place] [phone] Juventino Downey M.D. [address] [phone] 10/20/2023 2:30 PM CDT Office Visit Department of Family Medicine, [facility], in [place], [place] [address] [phone] Janette Be M.D. [address] [phone] 11/18/2023 1:30 PM CDT Office Visit Department of Orthopedic Surgery in [place], [place] [address] [phone] Brendan Porter P.A.-C. [address] [phone] 12/14/2023 10:30 AM CDT Appointment Department of Radiology in [place], [place] [address] [phone] Juventino Downey M.D. [address] [phone] 12/14/2023 11:15 AM CDT Office Visit Department of Orthopedic Surgery in [place], [place] [address] [phone] Juventino Downye M.D. [address] [phone] Scheduled Orders Name Type Priority Associated Diagnoses Orde r Schedule CT Knee Left without IV Contrast Imaging RAD - Routine (most inpatients and all outpatients) Primary Osteoarthritis Knee Left Expected: 08/10/2023 (Approximate), Expires: 11/09/2024 DX Knee Left Standing 3 Views Imaging RAD - Routine (most inpatients and all outpatients) Primary Osteoarthritis Knee Left Expected: 11/23/2023 (Approximate), Expires: 08/09/2024 Scheduled Referrals Name Type Priority Associated Diagnoses Orde r Schedule Orthopedic Surgery Post Op (clinic) Outpatient Referral Routine Expected: 08/24/2023, Expires: 11/09/2024 Orthopedic Surgery Post Op (clinic) Outpatient Referral Routine Expected: 01/27/2024, Expires: 02/10/2024 Orthopedic Surgery Post Op (clinic) Outpatient Referral Routine Expected: 11/24/2023, Expires: 02/10/2024 Primary Care - [facility] consult (clinic) Outpatient Referral Routine Primary Osteoarthritis Knee Left Expected: 08/11/2023 (Approximate), Expires: 11/09/2024 documented as of this encounter Results * DX Knee Left 4+ Views (08/10/2023 12:19 PM DIRECTOR NEW PRODUCT) Anatomical Region Laterality Modality Lower Extremity, Knee, Muscu loskeletal RST LOS, Musculoskeletal ARZ LOS, Muskuloskeletal FLA LOS Left Digit al Radiography Impressions 08/10/2023 12:57 PM DIRECTOR NEW PRODUCT Severe tricompartmental osteoarthritic most prominent of the left medial compartment. Narrative 08/10/2023 12:57 PM DIRECTOR NEW PRODUCT EXAM: DX KNEE LEFT 4+ VIEWS COMPARISON: Radiograph 12/22/2022 FINDINGS: No appreciable fracture. Tricompartmental osteoarthrosis most prominent in the medial compartments bilaterally with prominent fejp-dn-dmor articulation of the left knee with prominent osteophytic spurring. Moderate joint effusion. Prominent degenerative joint space narrowing of the right patella with mild lateral subluxation. Procedure Note Monty Hightower M.D. - 08/10/2023 EXAM: DX KNEE LEFT 4+ VIEWS COMPARISON: Radiograph 12/22/2022 FINDINGS: No appreciable fracture. Tricompartmental osteoarthrosis mostprominent in the medial compartments bilaterally with ldksnfwciaejd-rl-njhd articulation of the left knee with prominent osteophyticspurring. Moderate joint effusion. Prominent degenerative joint space narrowing of the right patella with mild lateralsubluxation. IMPRESSION: Severe tricompartmental osteoarthritic most prominent of the left medialcompartment. Juventino Downey M.D. IMG DIAGNOSTIC IM AGING PROCEDURES documented in this encounter Visit Diagnoses Diagnosis Primary Osteoarthritis Knee Left- Primary Primary Osteoarthritis Knee Right Primary Osteoarthritis Hip Right Primary Osteoarthritis Knee Left documented in this encounter Additional Health Concerns Assessment Noted Time PHQ-9 Depression Total Score: 0 04/27/20 14 2:21 PM DIRECTOR NEW PRODUCT documented as of this encounter Care Teams Teacher Lip Reading Relationship Specialty Start Date End Date Elsewhere, Pcp PCP - General 09/29/21 documented as of this encounter
--- OUTSIDE RECORDS SUMMARY | 2023-09-28 11:01 | XMS_ITS | Encounter Summary ---
Author Name Unknown Organization [facility] Address [address] [place] [address] Care Team Providers Care Concrete Grinder Operator Name Role Phone Elsewhere, Pcp Primary Care Provider Unavailabl e Reason for Visit * Reason Onset Date Comments After Visit Question 06/26/2023 Euflexxa in jection follow up Encounter Details Date Type Department Care Team (Latest Contact Info) Description 06/26/2023 Clinical Communication Department of Orthopedic Surgery in [place], [place] [address] [phone] Juventino Downey M.D. [address], [place] [phone] After Visit Question (Euflexxa injection follow up) Social History Tobacco Use Types Packs/Day Years [...] on file documented as of this encounter Miscellaneous Notes * Telephone Encounter - Jaida Bloom L.P.NAlex - 06/26/2023 10:59 AM CST S: Euflexxa injection follow up B: Seen on 06/12/[address] Downey. Given third Bilateral knee euflexxa injections. Patient states pain is now 2-4/10 with no adverse reactions to injection. Pain is with weight bearing. No pain withsitting. Feels the gel helped very little. Plans on having left knee replaced in October. [facility] bit. A: Courtesy call- minimal improvement in pain. R: FYI message forwarded to provider. Patient is scheduled to see Dr. Downey the end of Julyto discuss left TKA which he would like done in October. R ARBITRATOR documented in this encounter Plan of Treatment Upcoming Encounters Date Type Department Care Team (Late st Contact Info) Description 09/30/2023 3:00 PM CDT Comprehensive Visit Department of Orthopedic Surgery in [place], [place] [address] [place] [phone] Juventino Downey M.D. [address] [phone] 10/20/2023 1:30 PM CDT Appointment Department of Radiology in [place], [place] [address] [phone] Juventino Downey M.D. [address] [phone] 10/20/2023 2:30 PM CDT Office Visit Department of Family Medicine, [facility], in [place], [place] [address] [phone] Janette Be M.D. [address] [place] [phone] 11/18/2023 1:30 PM CDT Office Visit Department of Orthopedic Surgery in [place], [place] [address] [phone] Brendan Porter P.A.-C. [address], [place] [phone] 12/14/2023 10:30 AM CDT Appointment Department of Radiology in [place], [place] [address], [place] [phone] Juventino Downey M.D. [address], [place] [phone] 12/14/2023 11:15 AM CDT Office Visit Department of Orthopedic Surgery in [place], [place] [address], [place] [phone] Juventino Downey M.D. 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
== END 2023-09-28 10:58 | disposition home or self-care (01) ==
PROVIDERS: Emergency Provider Emergency Medicine
DX: L03.116 Cellulitis of left lower limb (principal)
CPT/HCPCS: 99282; 99283

== ENCOUNTER 2023-10-17 13:55 | Emergency (ER) | payer OTHER, SELFPAY ==
[2023-10-17 14:06] VITALS: BP 119/75; PULSE 68; RESP 16; TEMP 37.5; O2SAT 98; BMI 31.9
--- NOTE | 2023-10-17 14:38 | XR_ITS ---
Patient: SABRINA CULLEN Facility:?[facility] Patient ID:?[id number] Site Patient ID:?[id number] Site :?[id number] Study:?XRay-Chest -10/17/2023 3:02:38 PM Ordering Physician:Leoncio Mendes Final Report: INDICATION: Cough. TECHNIQUE: Chest 2 views. COMPARISON: None. FINDINGS: Cardiovascular and mediastinum: Cardiomediastinal silhouette is within normal limits Lungs and pleural spaces: Mild basilar linear opacities likely atelectasis. No sign of pleural effusion. No pneumothorax. Bones and soft tissues: No significant findings. IMPRESSION: No acute or significant findings. Dictated by Sade Davies MD @ 10/17/2023 3:14:01 PM Signed by:?Sade Davies MD @10/17/2023 3:14:01 PM (Electronic Signature)
--- NOTE | 2023-10-17 14:40 | ED_ITS ---
HPI - General Adult General Chief complaint: Cough Stated complaint: cough, fatigue Time Seen by Provider: 10/17/23 13:59 History of Present Illness HPI narrative: This 78-year-old male comes in reporting 2 or 3 days of upper respiratory symptoms that began with sore throat and now includes productive cough. He does not report any fever or shortness of breath. He does have some fatigue accompanying these symptoms. He arrives here with normal vital signs. Related Data Home Medications Medication Instructions Recorded Confirmed apixaban 5 mg tablet (Eliquis) 5 mg PO BID 01/03/22 10/17/23 hydrochlorothiazide 25 mg tablet 25 mg PO QAM 01/03/22 10/17/23 lisinopril 40 mg tablet 40 mg PO QDAY 01/03/22 10/17/23 aspirin 81 mg tablet,delayed 81 mg PO DAILY 10/17/23 10/17/23 release (Adult Low Dose Aspirin) atorvastatin .ROUTE 10/17/23 tamsulosin 0.4 mg capsule (Flomax) 0.4 mg PO DAILY 10/17/23 10/17/23 Previous Rx's Medication Instructions Recorded terbinafine HCl 1 % topical cream 1 applic topical BID #30 grams 09/28/23 pantoprazole 20 mg tablet,delayed 20 mg PO DAILY #20 tabs 10/17/23 release (Protonix) tramadol 50 mg tablet 50 mg PO Q6H PRN pain #20 tabs 10/17/23 Allergies Allergy/AdvReac Type Severity Reaction Status Date / Time No Known Allergies Allergy Verified 10/17/23 14:12 Review of Systems Status of ROS: Reports: 10 or more systems reviewed and unremarkable except as noted in History and below Narrative: Constitutional: No fevers, no weight gain or loss. Eyes: No discharge. No vision changes. HENT: No congestion, no ear pain. Cardiovascular: No chest pain, no palpitations. Respiratory: No shortness of breath, no wheezes. He reports a productive cough. Gastrointestinal: No abdominal pain, no vomiting, no diarrhea. Genitourinary: No dysuria, no hematuria. Musculoskeletal: Normal range of motion. Skin: No rashes, no pruritis. Neurological: No dizziness, weakness, sensory change, speech change. Endo/Heme/Allergies: No bruising or bleeding. No polydipsia. Pysch: no suicidality, no anxiety, no insomnia. All other systems reviewed and are negative. [facility] Medical History Atrial bigeminy Bradycardia Deep vein thrombosis (DVT) of right lower extremity History of DVT (deep vein thrombosis) Hypertension Infection due to severe acute respiratory syndrome coronavirus 2 (SARS-CoV-2) Pulmonary air embolism Short of breath on exertion Social History Smoking Status: Former smoker Do you use any of these nicotine containing products: None Second hand tobacco smoke exposure: No How often do you have a drink containing alcohol: never How often do you have six or more drinks on one occasion: Never AUDIT-C Alcohol total score: 0 Non-prescribed substance use: denies use service: Yes Exam Narrative: Exam Narrative: Constitutional: Well-developed, well-nourished, no acute distress. HEENT: Normocephalic, atraumatic. Neck: Normal range of motion. Nontender. Supple. Heart: Regular. No murmurs. Normal rate. Intact distal pulses. Lungs: Clear to auscultation. No chest discomfort. No wheezes, rhonchi, or rales. Abdomen: Normal bowel sounds. Nontender. No rebound tenderness. Genitalia: Deferred. Back: No midline tenderness. Normal range of motion. Extremities: Normal range of motion. No injury. Skin: Intact. No rash. Warm. No erythema or pallor. Neurologic: No altered sensation. No weakness. Alert and oriented. Psychiatric: No suicidality. No anxiety or depression. No insomnia. Nursing notes and vitals signs are reviewed. Const: Vital Signs, click to edit/add: Vital Signs - 24 hr 10/17/23 14:06 Temperature 99.5 F Pulse Rate [Pulse Oximeter] 68 Respiratory Rate 16 Blood Pressure [Ri ght Upper Arm] 119/75 Pulse Oximetry 98 Oxygen Delivery Me thod Room Air Course Vital Signs Vital signs: Initial Vital Signs Temperature 99.5 F 10/17/23 14:06 Temperature Source Temporal Artery Scan 10/17/23 14:06 Pulse Rate 68 10/17/23 14:06 Respiratory Rate 16 10/17/23 14:06 Blood Pressure 119/75 10/17/23 14:06 Blood Pressure Mean 89 10/17/23 14:06 Blood Pressure Position Sitting 10/17/23 14:06 Pulse Oximetry 98 10/17/23 14:06 Oxygen Delivery Method Room Air 10/17/23 14:06 Vital Signs Temperature 99.5 F 10/17/23 14:06 Pulse Rate 68 10/17/23 14:06 Respiratory Rate 16 10/17/23 14:06 Blood Pressure 119/75 10/17/23 14:06 Pulse Oximetry 98 10/17/23 14:06 Oxygen Delivery Method Room Air 10/17/23 14:06 Temperature 99.5 F 10/17/23 14:06 Pulse Rate 68 10/17/23 14:06 Respiratory Rate 16 10/17/23 14:06 Blood Pressure 119/75 10/17/23 14:06 Pulse Oximetry 98 10/17/23 14:06 Oxygen Delivery Method Room Air 10/17/23 14:06 Medications Administered Medications: Discontinued Medications Generic Name Dose Route Start Last Admin Trade Name Rubénq PRN Reason Stop Dose Admin Dexamethasone 10 mg 10/17/23 14:37 10/17/23 14:47 Dexamethasone 10 Mg/Ml Inj PO 10/17/23 14:38 10 mg ONCE ONE Administration Medical Decision Making MDM Narrative Medical decision making narrative: This patient comes in with upper respiratory symptoms as described above. A chest x-ray is obtained and returns with no acute cardiopulmonary findings. Additionally a nasal swab is negative for viral infections tested. The patient did receive an oral dose of dexamethasone. He does have normal vital signs. I did prescribe tramadol and Protonix for symptomatic relief. He does report reflux symptoms. Lab Data Labs: Lab Results 10/17/23 Range/Units 14:40 SARS-CoV-2 (PCR) Negative SARS-CoV-2 (Negative) Influenza Type A (PCR) Negative PCR FLU A (Negative) Influenza Type B (PCR) Negative PCR FLU B (Negative) RSV (PCR) Negative PCR RSV (Negative) Imaging Data Chest x-ray: Radiologist's impression: No acute or significant findings. Discharge Plan Discharge Clinical Impression: Acute upper respiratory infection Patient Disposition: Home, Self-Care Condition: Stable Additional Instructions: Take medication as prescribed. Use [id number] medicines also as needed and directed. For allergy symptoms use Betty, Claritin, or Zyrtec as needed and directed. Follow up with MD or return if worsening. Prescriptions: New tramadol 50 mg tablet 50 mg PO Q6H PRN (Reason: pain) Qty: 20 0RF pantoprazole [Protonix] 20 mg tablet,delayed release (DR/EC) 20 mg PO DAILY Qty: 20 2RF No Action hydrochlorothiazide 25 mg tablet 25 mg PO QAM Eliquis 5 mg tablet 5 mg PO BID lisinopril 40 mg tablet 40 mg PO QDAY atorvastatin .ROUTE tamsulosin [Flomax] 0.4 mg capsule 0.4 mg PO DAILY aspirin [Adult Low Dose Aspirin] 81 mg tablet,delayed release (DR/EC) 81 mg PO DAILY terbinafine HCl 1 % cream 1 applic topical BID Qty: 30 0RF Follow Up/Referrals: Provider,Not a Local [Primary Care Provider] - Stand Alone Forms: [email or web address] Info Instructions
[2023-10-17] MEDS: dexAMETHasone 10 MG/ML inj PO (14:47)
--- OUTSIDE RECORDS SUMMARY | 2023-10-17 14:51 | XMS_ITS | Continuity of Care Document ---
Author Name [facility] Organization [facility] Care Team Providers Care Senior Ui Ux Designer Name Role Phone [facility] Unavailable Unavailable Problems Combined list of problems from Department of Defense and [facility] Affairs facilities. It does not include entries that were removed or entered in error. 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 [facility] Cataract nos Active Condition [facility] Constipation Active Condition [facility] Environmental Allergies (ICD-9-CM 477.9) Active Condition [facility] External thrombosed hemorrhoids (ICD-9-CM 455.4) Active Condition [facility] Gastroesophageal Reflux Disorder * (ICD-9-CM 530.81) Active Condition [facility] Gout * (ICD-9-CM 274.9) Active Condition [facility] Hiatal hernia * (ICD-9-CM 553.3) Active Condition [facility] History of carotid endarterectomy Active Condition Mar 13, 2023 Entered By: DESTINI JJ Comment: Rt CEA and bovine patch repair, 08/2022 [facility] Hyperlipidemia Active Condition [facility] Hypertension, Nos [facility] Knee pain Active Condition [facility] Long-term current use of anticoagulant Active Condition [facility] Obesity * (ICD-9-CM 278.00) Active Condition [facility] Obstructive Sleep Apnea (Adult) (Pediatric) (ICD-9-CM 327.23) Active Condition [facility] Obstructive sleep apnea syndrome Active Condition [facility] Osteoarthritis Active Condition Aug 072012 Entered By: VALERY BRITO Comment: S/P left total hip in 2005. [facility] Retinal hemorrhage Active Condition 2022 Entered By: DESTINI JJ Comment: right eye, jun 2022, sees local bridge inspector [facility] Ventricular premature complex Active Condition [facility] Diagnosis: ICD-10-CM Z79.01 long-term (current) use of anticoagulants Active Diagnosis ISAIAH Tam [facility] Diagnosis: ICD-10-CM M79.673 Pain in unspecified foot Active Diagnosis KATIA BAILEY [facility] Diagnosis: ICD-10-CM H90.3 Sensorineural hearing loss, bilateral Active Diagnosis [facility] Diagnosis: ICD-10-CM M25.569 Pain in unspecified knee Active Diagnosis KATIA BAILEY [facility] Diagnosis: ICD-10-CM H90.5 Unspecified sensorineural hearing loss Active Diagnosis [facility] Diagnosis: ICD-10-CM Z46.1 Encounter for fitting and adjustment of hearing aid Active Diagnosis [facility] Diagnosis: ICD-10-CM Z71.9 Counseling, unspecified Active Diagnosis [facility] Diagnosis: ICD-10-CM Z23 Encounter for immunization Active Diagnosis [facility] Diagnosis: ICD-10-CM Z98.890 Other specified postprocedural states Active Diagnosis [facility] Diagnosis: ICD-10-CM 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 [facility] Yonatan [facility] Diagnosis: ICD-10-CM Z13.6 Encounter for screening for cardiovascular disorders Active Diagnosis [facility] Diagnosis: ICD-10-CM R31.9 Hematuria, unspecified Active Diagnosis [facility] Diagnosis: ICD-10-CM I65.21 Occlusion and stenosis of right carotid artery Active Diagnosis [facility] Diagnosis: ICD-10-CM H93.13 Tinnitus, bilateral Active Diagnosis [facility] Diagnosis: ICD-10-CM R33.9 Retention of urine, unspecified Active Diagnosis NICOLÁS CARCAMO [facility] Diagnosis: ICD-10-CM Z71.89 Other specified counseling Active Diagnosis [facility] Diagnosis: ICD-10-CM R26.89 Other abnormalities of gait and mobility Active Diagnosis [facility] Diagnosis: ICD-10-CM I10 Essential (primary) hypertension Active Diagnosis [facility] Diagnosis: ICD-10-CM Z48.89 Encounter for other specified surgical aftercare Active Diagnosis [facility] Diagnosis: ICD-10-CM I65.29 Occlusion and stenosis of unspecified carotid artery Active Diagnosis [facility] Yonatan [facility] Admit Reason: R CAROTID ARTERY STENOSIS Active Diagnosis [facility] Diagnosis: ICD-10-CM H53.9 Unspecified visual disturbance Active Diagnosis [facility] Diagnosis: ICD-10-CM E86.0 Dehydration Active Diagnosis [facility] Diagnosis: ICD-10-CM 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 [facility] Medications Combined list of outpatient medications from [...] NEEDED FOR PAIN FOR PAIN ORALLY 09/27/2022 [id number] PATRIC MAURICE 2022 100 [facility] APIXABAN 5MG TAB TAKE ONE TABLET BY MOUTH EVERY 12 HOURS TO TREAT AND/OR PREVENT BLOOD CLOTS ORALLY SUSPEND ED 05/25/2024 [id number] NO AZEVEDO 2023 180 [facility] APIXABAN 5MG TAB TAKE ONE TABLET BY MOUTH EVERY 12 HOURS TO TREAT AND/OR PREVENT BLOOD CLOTS ORALLY DISCONT INUED 09/03/2023 [id number] NO AZEVEDO 2022 180 [facility] APIXABAN 5MG TAB TAKE ONE TABLET BY MOUTH EVERY 12 HOURS TO PREVENT BLOOD CLOTS ORALLY DISCONT INUED 09/28/2022 [id number] 3 ANITRA LU 2022 60 [facility] APIXABAN 5MG TAB TAKE ONE TABLET BY MOUTH EVERY 12 HOURS TO PREVENT BLOOD CLOTS ORALLY DISCONT INUED 02/21/2023 [id number] 3 NITHYA CAIN 2021 180 [facility] ASPIRIN 81MG TAB,EC TAKE ONE TABLET BY MOUTH EVERY DAY TO PREVENT BLOOD CLOTS DO NOT CHEW ORALLY 08/29/2023 [id number] 4 PATRIC MAURICE 2022 120 [facility] ATORVASTATI N CA 40MG TAB TAKE ONE TABLET BY MOUTH AT BEDTIME FOR CHOLESTE ROL ORALLY SUSPEND ED 06/04/2024 [id number] 4 APOLLO JJ 2023 90 [place] [facility] [facility] ATORVASTATI N CA 40MG TAB TAKE ONE TABLET BY MOUTH AT BEDTIME FOR CHOLESTE ROL ORALLY DISCONT INUED 08/21/2023 [id number] 3 JJMISSION, HI NA 2022 90 [facility] DICLOFENAC NA 1% GEL,TOP APPLY 4 GRAMS TOPICALL Y TWICE A DAY TO AFFECTED AREA FOR PAIN. *USE DOSE CARD IN BOX TO MEASURE DOSE. MAX 32 GRAMS PER DAY. TOPICA LLY ACTIVE 10/24/2023 [id number] GUTER,BIGG REL 2022 200 [facility] DOCUSATE NA 50MG/SENNOS IDES 8.6MG TAB TAKE 1 TABLET BY MOUTH TWICE A DAY NEEDED FOR CONSTIPA TION ORALLY ACTIVE 03/13/2024 [id number] JJMISSION, HI NA 2022 100 [facility] DOCUSATE NA 50MG/SENNOS IDES 8.6MG TAB TAKE 1 TABLET BY MOUTH TWICE A DAY NEEDED FOR CONSTIPA TION ORALLY DISCONT INUED 12/31/2022 [id number] 3 JJMISSION, HI NA 2022 100 [facility] DOCUSATE NA 50MG/SENNOS IDES 8.6MG TAB TAKE 1 TABLET BY MOUTH TWICE A DAY NEEDED FOR CONSTIPA TION ORALLY 01/30/2023 [id number] 3 [place], [place] NA 2022 100 [facility] DOCUSATE NA 50MG/SENNOS IDES 8.6MG TAB TAKE 1 TABLET BY MOUTH TWICE A DAY NEEDED FOR CONSTIPA TION ORALLY 10/18/2022 [id number] 3 ANITRA LU 2022 100 [facility] FINASTERIDE 5MG TAB TAKE ONE TABLET BY MOUTH EVERY DAY FOR PROSTATE ORALLY ACTIVE 12/05/2023 [id number] ALCIRA CROFT 2023 30 [facility] FINASTERIDE 5MG TAB TAKE ONE TABLET BY MOUTH EVERY DAY FOR PROSTATE ORALLY DISCONT INUED 12/05/2023 [id number] ALCIRA CROFT 2022 30 [facility] HYDROCHLORO THIAZIDE 12.5MG TAB TAKE ONE TABLET BY MOUTH EVERY DAY FOR BLOOD PRESSURE ORALLY SUSPEND ED 05/18/2024 [id number] 4 PARVIZ,APOLLO NA 2023 90 [facility] HYDROCHLORO THIAZIDE 12.5MG TAB TAKE ONE TABLET BY MOUTH EVERY DAY FOR BLOOD PRESSURE ORALLY DISCONT INUED 08/14/2023 [id number] 3 PARVIZ,HI NA 2022 90 [facility] LIDOCAINE 5% PATCH APPLY ONE PATCH FOR EACH KNEE TOPICALL Y EVERY DAY NEEDED FOR UP TO 12 HOURS FOR PAIN TOPICA LLY ACTIVE 07/17/2024 [id number] 4 APOLLO JJ NA 2023 180 [facility] LIDOCAINE 5% PATCH APPLY 1 PATCH TOPICALL Y EVERY DAY NEEDED FOR UP TO 12 HOURS FOR PAIN TOPICA LLY DISCONT INUED (EDIT) 07/15/2024 [id number] APOLLO JJ NA 2023 60 [facility] LIDOCAINE 5% PATCH APPLY 1 PATCH TOPICALL Y EVERY DAY NEEDED FOR UP TO 12 HOURS FOR PAIN TOPICA LLY DISCONT INUED (EDIT) 08/05/2023 [id number] 4 APOLLO JJ NA 2023 30 [facility] LIDOCAINE 5% PATCH APPLY 1 PATCH TOPICALL Y EVERY DAY NEEDED FOR UP TO 12 HOURS FOR PAIN TOPICA LLY DISCONT INUED 07/09/2023 [id number] APOLLO JJ NA 2023 30 [facility] LIDOCAINE 5% PATCH APPLY 1 PATCH TOPICALL Y EVERY DAY NEEDED FOR PAIN TOPICA LLY DISCONT INUED 06/03/2023 [id number] APOLLO JJ NA 2022 30 [facility] LIDOCAINE 5% PATCH APPLY 1 PATCH TOPICALL Y EVERY DAY NEEDED FOR PAIN TOPICA LLY DISCONT INUED 04/26/2023 [id number] 3 PARVIZ,HI NA 2022 30 [facility] LIDOCAINE 5% PATCH APPLY 1 PATCH TOPICALL Y EVERY DAY NEEDED FOR PAIN TOPICA LLY DISCONT INUED 03/05/2023 [id number] PARVIZ,HI NA 2022 30 [facility] LIDOCAINE 5% PATCH APPLY 1 PATCH TOPICALL Y EVERY DAY NEEDED FOR PAIN TOPICA LLY DISCONT INUED 01/29/2023 [id number] 3 PARVIZ,HI NA 2022 30 [facility] LIDOCAINE 5% PATCH APPLY 1 PATCH TOPICALL Y EVERY DAY NEEDED FOR PAIN TOPICA LLY DISCONT INUED 01/10/2023 [id number] PARVIZ,APOLLO NA 2022 30 [facility] LIDOCAINE 5% PATCH APPLY 1 PATCH TOPICALL Y EVERY DAY NEEDED FOR PAIN TOPICA LLY DISCONT INUED 12/04/2022 [id number] PARVIZ,HI NA 2022 30 [facility] LIDOCAINE 5% PATCH APPLY 1 PATCH TOPICALL Y EVERY DAY NEEDED FOR PAIN TOPICA LLY DISCONT INUED 10/30/2022 [id number] PARVIZ,HI NA 2022 30 [facility] LIDOCAINE 5% PATCH APPLY 1 PATCH TOPICALL Y EVERY DAY NEEDED FOR PAIN TOPICA LLY 09/27/2022 [id number] PATRIC MAURICE A 2022 30 [facility] LISINOPRIL 40MG TAB TAKE ONE TABLET BY MOUTH EVERY DAY FOR HEART AND BLOOD PRESSURE ORALLY ACTIVE 12/12/2023 [id number] BIGG IRENE REL 2022 90 [facility] LISINOPRIL 40MG TAB TAKE ONE TABLET BY MOUTH EVERY DAY FOR HEART AND BLOOD PRESSURE ORALLY DISCONT INUED 10/18/2022 [id number] BIGG IRENE 2021 90 [facility] METOPROLOL SUCCINATE 50MG TAB,SA TAKE ONE-HALF TABLET BY MOUTH EVERY DAY ORALLY SUSPEND ED 12/11/2023 [id number] TASH DIA 2022 45 [facility] METOPROLOL SUCCINATE 50MG TAB,SA TAKE ONE-HALF TABLET BY MOUTH EVERY DAY ORALLY DISCONT INUED 01/28/2023 [id number] TASH DIA 2021 45 [facility] PSYLLIUM PWDR,ORAL TAKE 1 TABLESPO ONFUL BY MOUTH EVERY DAY FOR REGULAR BOWEL MOVEMENT S ORALLY ACTIVE 03/13/2024 [id number] 3 APOLLO JJ 2022 1170 [facility] TAMSULOSIN HCL 0.4MG CAP TAKE ONE CAPSULE BY MOUTH EVERY EVENING FOR PROSTATE ORALLY ACTIVE 04/27/2024 [id number] 4 APOLLO JJ 2022 90 [facility] TAMSULOSIN HCL 0.4MG CAP TAKE ONE CAPSULE BY MOUTH EVERY EVENING FOR PROSTATE ORALLY DISCONT INUED 05/10/2023 [id number] 3 APOLLO JJ 2022 30 [facility] TAMSULOSIN HCL 0.4MG CAP TAKE ONE CAPSULE BY MOUTH EVERY EVENING FOR PROSTATE ORALLY DISCONT INUED 04/09/2023 [id number] 3 APOLLO JJ 2022 30 [facility] TAMSULOSIN HCL 0.4MG CAP TAKE ONE CAPSULE BY MOUTH EVERY EVENING FOR PROSTATE ORALLY DISCONT INUED 03/04/2023 [id number] APOLLO JJ 2022 30 [facility] TAMSULOSIN HCL 0.4MG CAP TAKE ONE CAPSULE BY MOUTH EVERY EVENING FOR PROSTATE ORALLY DISCONT INUED 02/25/2023 [id number] 3 APOLLO JJ 2022 30 [facility] TAMSULOSIN HCL 0.4MG CAP TAKE ONE CAPSULE BY MOUTH EVERY EVENING FOR PROSTATE ORALLY DISCONT INUED 02/21/2023 [id number] 3 JJ,HI NA 2022 30 [facility] TAMSULOSIN HCL 0.4MG CAP TAKE ONE CAPSULE BY MOUTH EVERY EVENING FOR PROSTATE ORALLY DISCONT INUED 01/10/2023 [id number] 3 JJ,HI NA 2022 30 [facility] TAMSULOSIN HCL 0.4MG CAP TAKE ONE CAPSULE BY MOUTH EVERY EVENING FOR PROSTATE ORALLY DISCONT INUED 12/11/2022 [id number] 3 JJ,NC NA 2022 30 [facility] TAMSULOSIN HCL 0.4MG CAP TAKE ONE CAPSULE BY MOUTH EVERY EVENING FOR PROSTATE ORALLY DISCONT INUED 12/04/2022 [id number] 3 JJ,NC NA 2022 30 [facility] TAMSULOSIN HCL 0.4MG CAP TAKE ONE CAPSULE BY MOUTH EVERY EVENING FOR PROSTATE ORALLY DISCONT INUED 10/30/2022 [id number] 3 JJ,NC NA 2022 30 [facility] TAMSULOSIN HCL 0.4MG CAP TAKE ONE CAPSULE BY MOUTH EVERY EVENING FOR PROSTATE ORALLY 09/27/2022 [id number] PATRIC MAURICE A 2022 30 [facility] VANICREAM APPLY THIN LAYER TOPICALL Y TWICE A DAY FOR DRY SKIN TOPICA LLY ACTIVE 03/13/2024 [id number] 3 JJ,NC NA 2022 454 [facility] Immunizations Combined list of available immunizations from the Department of Defense and Veterans Affairs facilities. Immunization Series Date Given Administered By Site Reaction Lot Number CVX Code Drug Cycling Instructor Status Comments Source COVID-19 ([facility]), MRNA, LNP-S, PF, PAULINA-SUCROSE, 30 MCG/0.3 ML (AGES 12+ YEARS) 1 2022 MISTI SOLIMAN LEFT DELTO ID [id number] 309 complet ed [facility] INFLUENZA, HIGH-DOSE, QUADRIVALENT 2022 LEWIS CATES LEFT DELTO ID [id number] 197 complet ed [facility] COVID-19 ([facility]), MRNA, LNP-S, BIVALENT BOOSTER, PF, 30 MCG/0.3 ML DOSE 1 2022 IAN HIGGINS ROBYNKaye LAO LEFT DELTO ID [id number] 300 complet ed [facility] INFLUENZA VACCINE, QUADRIVALENT, ADJUVANTED 2021 205 complet ed [facility] PNEUMOCOCCAL CONJUGATE PCV20, POLYSACCHARID E [id number] CONJUGATE, ADJUVANT, PF 2021 216 complet ed [facility] COVID-19 ([facility]), MRNA, LNP-S, PF, 30 MCG/0.3 ML DOSE 3 2020 208 complet ed PFR; [id number]; 1 [facility] INFLUENZA, INJECTABLE, QUADRIVALENT, PRESERVATIVE FREE 2020 150 complet ed [facility] COVID-19 ([facility]), MRNA, LNP-S, PF, 30 MCG/0.3 ML DOSE 2 2020 208 complet ed PFR; [id number]; 1 [facility] COVID-19 ([facility]), MRNA, LNP-S, PF, 30 MCG/0.3 ML DOSE 1 2020 208 complet ed PFR; [id number]; 1 [facility] TD (ADULT), 5 LF TETANUS TOXOID, PRESERVATIVE FREE, ADSORBED 2019 113 complet ed [facility] INFLUENZA, INJECTABLE, QUADRIVALENT, PRESERVATIVE FREE 2019 150 complet ed [facility] ZOSTER RECOMBINANT 2 2019 187 complet ed [facility] ZOSTER RECOMBINANT 1 2019 187 complet ed [facility] INFLUENZA, SEASONAL, INJECTABLE, PRESERVATIVE FREE 2018 140 complet ed [facility] INFLUENZA, SEASONAL, INJECTABLE, PRESERVATIVE FREE 2017 140 complet ed [facility] INFLUENZA, HIGH DOSE SEASONAL 2016 135 complet ed [facility] PNEUMOCOCCAL CONJUGATE PCV 13 2015 133 complet ed [facility] lot [id number] exp 06/25 [facility] INFLUENZA, HIGH DOSE SEASONAL 2015 135 complet ed [facility] INFLUENZA, HIGH DOSE SEASONAL 2014 135 complet ed [facility] PNEUMOCOCCAL POLYSACCHARID E [id number] 2014 33 complet ed [employer]; [id number]; 6 [facility] INFLUENZA, UNSPECIFIED FORMULATION 2013 88 complet ed [facility] INFLUENZA, UNSPECIFIED FORMULATION 2012 88 complet ed [facility] TDAP 2012 115 complet ed [id number] A [facility] INFLUENZA, UNSPECIFIED FORMULATION 2011 88 complet ed [facility] ZOSTER LIVE 2011 121 complet ed [employer] Lot#[id number] A Exp.Date- -06-28-12 [facility] INFLUENZA, UNSPECIFIED FORMULATION 2010 88 complet ed [facility] INFLUENZA, UNSPECIFIED FORMULATION 2009 88 complet ed [facility] INFLUENZA, UNSPECIFIED FORMULATION 2008 88 complet ed [facility] INFLUENZA, UNSPECIFIED FORMULATION 2008 88 complet ed [facility] PNEUMOCOCCAL, UNSPECIFIED FORMULATION 2007 109 complet ed [facility] INFLUENZA, UNSPECIFIED FORMULATION 2006 88 complet ed [facility] TD (ADULT), 2 LF TETANUS TOXOID, PRESERVATIVE FREE, ADSORBED 2005 09 complet ed [facility] INFLUENZA, UNSPECIFIED FORMULATION 2005 88 complet ed [facility] INFLUENZA, UNSPECIFIED FORMULATION 2004 88 complet ed [facility] TETANUS TOXOID, UNSPECIFIED FORMULATION 2004 NONE 112 complet ed [facility] TD(ADULT) UNSPECIFIED FORMULATION 2002 MARCO MORA 139 complet ed [facility] Results Combined list of recent chemistry, hematology [...] Jun 13, 2022 01:54 PM Reporting Lab: [facility] [address] Performing Lab: [facility] [address] [place] [facility] BASIC METABOLI C PANEL+MG UREA NITROGEN [MASS/VOLU ME] IN SERUM OR PLASMA 23 8 - 26 07/10 Specimen Type: PLASMA No comment entered. Ordering Provider: DESTINI JJ Report Released Date/Time: Jun 13, 2022 01:54 PM Reporting Lab: [facility] [address] Performing Lab: [facility] [address] [place] [facility] BASIC METABOLI C PANEL+MG GLUCOSE [MASS/VOLU ME] IN SERUM OR PLASMA 106 70 - 100 07/10 H Specimen Type: PLASMA No comment entered. Ordering Provider: DESTINI JJ Report Released Date/Time: Jun 13, 2022 01:54 PM Reporting Lab: [facility] [address] Performing Lab: [facility] [address] [place] [facility] BASIC METABOLI C PANEL+MG SODIUM [MOLES/VOL UME] IN SERUM OR PLASMA 140 136 - 145 07/10 Specimen Type: PLASMA No comment entered. Ordering Provider: DESTINI JJ Report Released Date/Time: Jun 13, 2022 01:54 PM Reporting Lab: [facility] [address] Performing Lab: [facility] [address] [place] [facility] BASIC METABOLI C PANEL+MG POTASSIUM [MOLES/VOL UME] IN SERUM OR PLASMA 4.2 3.5 - 5.1 07/10 Specimen Type: PLASMA No comment entered. Ordering Provider: DESTINI JJ Report Released Date/Time: Jun 13, 2022 01:54 PM Reporting Lab: [facility] [address] Performing Lab: [facility] [address] [place] [facility] BASIC METABOLI C PANEL+MG CHLORIDE [MOLES/VOL UME] IN SERUM OR PLASMA 109 98 - 107 07/10 H Specimen Type: PLASMA No comment entered. Ordering Provider: DESTINI JJ Report Released Date/Time: Jun 13, 2022 01:54 PM Reporting Lab: [facility] [address] Performing Lab: [facility] [address] [place] [facility] BASIC METABOLI C PANEL+MG CARBON DIOXIDE, TOTAL [MOLES/VOL UME] IN SERUM OR PLASMA 23 22 - 29 07/10 Specimen Type: PLASMA No comment entered. Ordering Provider: DESTINI JJ Report Released Date/Time: Jun 13, 2022 01:54 PM Reporting Lab: [facility] [address] Performing Lab: [facility] [address] [place] [facility] BASIC METABOLI C PANEL+MG CALCIUM [MASS/VOLU ME] IN SERUM OR PLASMA 9.2 8.4 - 10.2 07/10 Specimen Type: PLASMA No comment entered. Ordering Provider: DESTINI JJ Report Released Date/Time: Jun 13, 2022 01:54 PM Reporting Lab: [facility] [address] Performing Lab: [facility] [address] [place] [facility] BASIC METABOLI C PANEL+MG MAGNESIUM [MASS/VOLU ME] IN SERUM OR PLASMA 2.1 1.6 - 2.6 07/10 Specimen Type: PLASMA No comment entered. Ordering Provider: DESTINI JJ Report Released Date/Time: Jun 13, 2022 01:54 PM Reporting Lab: [facility] [address] Performing Lab: [facility] [address] [place] [facility] BASIC METABOLI C PANEL+MG ANION GAP IN SERUM OR PLASMA 8 5 - 15 07/10 Specimen Type: PLASMA No comment entered. Ordering Provider: DESTINI JJ Report Released Date/Time: Jun 13, 2022 01:54 PM Reporting Lab: [facility] [address] Performing Lab: [facility] [address] [place] [facility] BASIC METABOLI C PANEL+MG GLOMERULAR FILTRATION RATE/1.73 SQ M.PREDICTE D [VOLUME RATE/AREA] IN SERUM, PLASMA OR BLOOD BY CREATININE -BASED FORMULA (CKD-EPI 2020) 62 60 07/10 Specimen Type: PLASMA No comment entered. Ordering Provider: DESTINI JJ Report Released Date/Time: Jun 13, 2022 01:54 PM Reporting Lab: [facility] [address] Performing Lab: [facility] [address] [place] [facility] AST/SGOT ASPARTATE AMINOTRANS FERASE [ENZYMATIC ACTIVITY/V OLUME] IN SERUM OR PLASMA 16 <34 - 34 04/22 Specimen Type: PLASMA No comment entered. Ordering Provider: KATHERYN AZEVEDO Report Released Date/Time: Mar 31, 2023 09:22 AM Reporting Lab: [facility] [address] Performing Lab: [facility] [address] [place] [facility] CREATINI NE(INCLU JOEY EGFR) CREATININE [MASS/VOLU ME] IN SERUM OR PLASMA 1.2 0.7 - 1.2 04/22 Specimen Type: PLASMA No comment entered. Ordering Provider: KATHERYN AZEVEDO Report Released Date/Time: Mar 31, 2023 09:22 AM Reporting Lab: [facility] [address] Performing Lab: [facility] [address] [place] [facility] CREATINI NE(INCLU JOEY EGFR) GLOMERULAR FILTRATION RATE/1.73 SQ M.PREDICTE D [VOLUME RATE/AREA] IN SERUM, PLASMA OR BLOOD BY CREATININE -BASED FORMULA (CKD-EPI 2020) 62 60 04/22 Specimen Type: PLASMA No comment entered. Ordering Provider: KATHERYN AZEVEDO Report Released Date/Time: Mar 31, 2023 09:22 AM Reporting Lab: [facility] [address] Performing Lab: [facility] [address] [place] [facility] ALT/SGPT ALANINE AMINOTRANS FERASE [ENZYMATIC ACTIVITY/V OLUME] IN SERUM OR PLASMA 20 <55 - 55 04/22 Specimen Type: PLASMA No comment entered. Ordering Provider: KATHERYN AZEVEDO Report Released Date/Time: Mar 31, 2023 09:22 AM Reporting Lab: [facility] [address] Performing Lab: [facility] [address] [place] [facility] CBC LEUKOCYTES [#/VOLUME] IN BLOOD BY AUTOMATED COUNT 6.53 4.0 - 11.0 04/22 Specimen Type: BLOOD No comment entered. Ordering Provider: KATHERYN AZEVEDO Report Released Date/Time: Mar 31, 2023 09:22 AM Reporting Lab: [facility] [address] Performing Lab: [facility] [address] [place] [facility] CBC ERYTHROCYT ES [#/VOLUME] IN BLOOD BY AUTOMATED COUNT 4.84 4.6 - 6.2 04/22 Specimen Type: BLOOD No comment entered. Ordering Provider: KATHERYN AZEVEDO Report Released Date/Time: Mar 31, 2023 09:22 AM Reporting Lab: [facility] [address] Performing Lab: [facility] [address] [place] [facility] CBC HEMOGLOBIN [MASS/VOLU ME] IN BLOOD 15.3 13.5 - 17.9 04/22 Specimen Type: BLOOD No comment entered. Ordering Provider: KATHERYN AZEVEDO Report Released Date/Time: Mar 31, 2023 09:22 AM Reporting Lab: [facility] [id number] Performing Lab: [facility] [id number] [place] [facility] CBC HEMATOCRIT [VOLUME FRACTION] OF BLOOD BY AUTOMATED COUNT 46.0 41 - 54 04/22 Specimen Type: BLOOD No comment entered. Ordering Provider: KATHERYN AZEVEDO Report Released Date/Time: Mar 31, 2023 09:22 AM Reporting Lab: [facility] [phone] Performing Lab: [facility] [phone] [place] [facility] CBC MCV [ENTITIC VOLUME] BY AUTOMATED COUNT 95.0 80 - 100 04/22 Specimen Type: BLOOD No comment entered. Ordering Provider: KATHERYN AZEVEDO Report Released Date/Time: Mar 31, 2023 09:22 AM Reporting Lab: [facility] [id number] Performing Lab: [facility] [phone] [place] [facility] CBC MCH [ENTITIC MASS] BY AUTOMATED COUNT 31.6 27 - 33 04/22 Specimen Type: BLOOD No comment entered. Ordering Provider: KATHERYN AZEVEDO Report Released Date/Time: Mar 31, 2023 09:22 AM Reporting Lab: [facility] [address] Performing Lab: [facility] [address] [place] [facility] CBC MCHC [MASS/VOLU ME] BY AUTOMATED COUNT 33.3 32.0 - 37.5 04/22 Specimen Type: BLOOD No comment entered. Ordering Provider: KATHERYN AZEVEDO Report Released Date/Time: Mar 31, 2023 09:22 AM Reporting Lab: [facility] [address] Performing Lab: [facility] [address] [place] [facility] CBC PLATELETS [#/VOLUME] IN BLOOD BY AUTOMATED COUNT 166 150 - 400 04/22 Specimen Type: BLOOD No comment entered. Ordering Provider: KATHERYN AZEVEDO Report Released Date/Time: Mar 31, 2023 09:22 AM Reporting Lab: [facility] [address] Performing Lab: [facility] [address] [place] [facility] CBC PLATELET MEAN VOLUME [ENTITIC VOLUME] IN BLOOD BY AUTOMATED COUNT 10.0 7.4 - 10.4 04/22 Specimen Type: BLOOD No comment entered. Ordering Provider: KATHERYN AZEVEDO Report Released Date/Time: Mar 31, 2023 09:22 AM Reporting Lab: [facility] [address] Performing Lab: [facility] [address] [place] [facility] CBC ERYTHROCYT E DISTRIBUTI ON WIDTH [RATIO] BY AUTOMATED COUNT 13.1 11.5 - 14.5 04/22 Specimen Type: BLOOD No comment entered. Ordering Provider: KATHERYN AZEVEDO Report Released Date/Time: Mar 31, 2023 09:22 AM Reporting Lab: [facility] [address] Performing Lab: [address] [place] [facility] CBC PLATELETS RETICULATE D/100 PLATELETS IN BLOOD BY AUTOMATED COUNT 2.2 0 - 10 04/22 Specimen Type: BLOOD No comment entered. Ordering Provider: KATHERYN AZEVEDO Report Released Date/Time: Mar 31, 2023 09:22 AM Reporting Lab: [facility] [address] Performing Lab: [facility] [address] [place] [facility] .OCCULT BLOOD(FI T) HEMOGLOBIN .GASTROINT ESTINAL.LO WER [PRESENCE] IN STOOL BY IMMUNOASSA Y Negative 01/26 Specimen Type: FECES No comment entered. Ordering Provider: LISA MARADIAGA Report Released Date/Time: Jan 26, 2023 08:24 AM Reporting Lab: [facility] [address] Performing Lab: [facility] [address] [facility] CBC LEUKOCYTES [#/VOLUME] IN BLOOD BY AUTOMATED COUNT 5.91 4.0 - 11.0 09/05 Specimen Type: BLOOD No comment entered. Ordering Provider: KATHERYN AZEVEDO Report Released Date/Time: Sep 02, 2022 08:25 AM Reporting Lab: [facility] [address] Performing Lab: [facility] [address] [facility] CBC ERYTHROCYT ES [#/VOLUME] IN BLOOD BY AUTOMATED COUNT 4.55 4.6 - 6.2 09/05 L Specimen Type: BLOOD No comment entered. Ordering Provider: KATHERYN AZEVEDO Report Released Date/Time: Sep 02, 2022 08:25 AM Reporting Lab: [facility] [address] Performing Lab: [facility] [address] [facility] CBC HEMOGLOBIN [MASS/VOLU ME] IN BLOOD 13.9 13.5 - 17.9 09/05 Specimen Type: BLOOD No comment entered. Ordering Provider: KATHERYN AZEVEDO Report Released Date/Time: Sep 02, 2022 08:25 AM Reporting Lab: [facility] [address] Performing Lab: [facility] [address] [place] [facility] CBC HEMATOCRIT [VOLUME FRACTION] OF BLOOD BY AUTOMATED COUNT 42.1 41 - 54 09/05 Specimen Type: BLOOD No comment entered. Ordering Provider: KATHERYN AZEVEDO Report Released Date/Time: Sep 02, 2022 08:25 AM Reporting Lab: [facility] [address] Performing Lab: [facility] [address] [place] [facility] CBC MCV [ENTITIC VOLUME] BY AUTOMATED COUNT 92.5 80 - 100 09/05 Specimen Type: BLOOD No comment entered. Ordering Provider: KATHERYN AZEVEDO Report Released Date/Time: Sep 02, 2022 08:25 AM Reporting Lab: [facility] [address] Performing Lab: [facility] [address] [place] [facility] CBC MCH [ENTITIC MASS] BY AUTOMATED COUNT 30.5 27 - 33 09/05 Specimen Type: BLOOD No comment entered. Ordering Provider: KATHERYN AZEVEDO Report Released Date/Time: Sep 02, 2022 08:25 AM Reporting Lab: [facility] [address] Performing Lab: [facility] [address] [place] [facility] CBC MCHC [MASS/VOLU ME] BY AUTOMATED COUNT 33.0 32.0 - 37.5 09/05 Specimen Type: BLOOD No comment entered. Ordering Provider: KATHERYN AZEVEDO Report Released Date/Time: Sep 02, 2022 08:25 AM Reporting Lab: [facility] [address] Performing Lab: [facility] [address] [place] [facility] CBC PLATELETS [#/VOLUME] IN BLOOD BY AUTOMATED COUNT 256 150 - 400 09/05 Specimen Type: BLOOD No comment entered. Ordering Provider: KATHERYN AZEVEDO Report Released Date/Time: Sep 02, 2022 08:25 AM Reporting Lab: [facility] [address] Performing Lab: [facility] [address] [place] [facility] CBC PLATELET MEAN VOLUME [ENTITIC VOLUME] IN BLOOD BY AUTOMATED COUNT 9.2 7.4 - 10.4 09/05 Specimen Type: BLOOD No comment entered. Ordering Provider: KATHERYN AZEVEDO Report Released Date/Time: Sep 02, 2022 08:25 AM Reporting Lab: [facility] [address] Performing Lab: [facility] [address] [place] [facility] CBC ERYTHROCYT E DISTRIBUTI ON WIDTH [RATIO] BY AUTOMATED COUNT 13.2 11.5 - 14.5 09/05 Specimen Type: BLOOD No comment entered. Ordering Provider: KATHERYN AZEVEDO Report Released Date/Time: Sep 02, 2022 08:25 AM Reporting Lab: [facility] [address] Performing Lab: [facility] [address] [place] [facility] BASIC METABOLI C PANEL+MG CREATININE [MASS/VOLU ME] IN SERUM OR PLASMA 1.2 0.7 - 1.2 08/28 Specimen Type: PLASMA No comment entered. Ordering Provider: ANITRA MCCLAIN Report Released Date/Time: Aug 28, 2022 12:41 PM Reporting Lab: [facility] [address] Performing Lab: [facility] [address] [place] [facility] BASIC METABOLI C PANEL+MG UREA NITROGEN [MASS/VOLU ME] IN SERUM OR PLASMA 18 8 - 26 08/28 Specimen Type: PLASMA No comment entered. Ordering Provider: ANITRA MCCLAIN Report Released Date/Time: Aug 28, 2022 12:41 PM Reporting Lab: [facility] [address] Performing Lab: [facility] [address] [place] [facility] BASIC METABOLI C PANEL+MG GLUCOSE [MASS/VOLU ME] IN SERUM OR PLASMA 150 70 - 100 08/28 H Specimen Type: PLASMA No comment entered. Ordering Provider: ANITRA MCCLAIN Report Released Date/Time: Aug 28, 2022 12:41 PM Reporting Lab: [facility] [address] Performing Lab: [facility] [address] [place] [facility] BASIC METABOLI C PANEL+MG SODIUM [MOLES/VOL UME] IN SERUM OR PLASMA 137 136 - 145 08/28 Specimen Type: PLASMA No comment entered. Ordering Provider: ANITRA MCCLAIN Report Released Date/Time: Aug 28, 2022 12:41 PM Reporting Lab: [facility] [address] Performing Lab: [facility] [address] [place] [facility] BASIC METABOLI C PANEL+MG POTASSIUM [MOLES/VOL UME] IN SERUM OR PLASMA 4.2 3.5 - 5.1 08/28 Specimen Type: PLASMA No comment entered. Ordering Provider: ANITRA MCCLAIN Report Released Date/Time: Aug 28, 2022 12:41 PM Reporting Lab: [facility] [address] Performing Lab: [facility] [address] [place] [facility] BASIC METABOLI C PANEL+MG CHLORIDE [MOLES/VOL UME] IN SERUM OR PLASMA 107 98 - 107 08/28 Specimen Type: PLASMA No comment entered. Ordering Provider: ANITRA MCCLAIN Report Released Date/Time: Aug 28, 2022 12:41 PM Reporting Lab: [facility] [address] Performing Lab: [facility] [address] [place] [facility] BASIC METABOLI C PANEL+MG CARBON DIOXIDE, TOTAL [MOLES/VOL UME] IN SERUM OR PLASMA - 29 08/28 Specimen Type: PLASMA No comment entered. Ordering Provider: ANITRA MCCLAIN Report Released Date/Time: Aug 28, 2022 12:41 PM Reporting Lab: [facility] [address] Performing Lab: [facility] [address] [place] [facility] BASIC METABOLI C PANEL+MG CALCIUM [MASS/VOLU ME] IN SERUM OR PLASMA 8.9 8.4 - 10.2 08/28 Specimen Type: PLASMA No comment entered. Ordering Provider: ANITRA MCCLAIN Report Released Date/Time: Aug 28, 2022 12:41 PM Reporting Lab: [facility] [address] Performing Lab: [facility] [address] [place] [facility] BASIC METABOLI C PANEL+MG MAGNESIUM [MASS/VOLU ME] IN SERUM OR PLASMA 1.9 1.6 - 2.6 08/28 Specimen Type: PLASMA No comment entered. Ordering Provider: ANITRA MCCLAIN Report Released Date/Time: Aug 28, 2022 12:41 PM Reporting Lab: [facility] [address] Performing Lab: [facility] [address] [place] [facility] BASIC METABOLI C PANEL+MG ANION GAP IN SERUM OR PLASMA 8 5 - 15 08/28 Specimen Type: PLASMA No comment entered. Ordering Provider: ANITRA MCCLAIN Report Released Date/Time: Aug 28, 2022 12:41 PM Reporting Lab: [facility] [address] Performing Lab: [facility] [address] [place] [facility] BASIC METABOLI C PANEL+MG GLOMERULAR FILTRATION RATE/1.73 SQ M.PREDICTE D [VOLUME RATE/AREA] IN SERUM, PLASMA OR BLOOD BY CREATININE -BASED FORMULA (CKD-EPI) 62 60 08/28 Specimen Type: PLASMA No comment entered. Ordering Provider: ANITRA MCCLAIN Report Released Date/Time: Aug 28, 2022 12:41 PM Reporting Lab: [facility] [address] Performing Lab: [facility] [address] [place] [facility] CBC & DIFF LEUKOCYTES [#/VOLUME] IN BLOOD BY AUTOMATED COUNT 5.92 4.0 - 11.0 08/28 Specimen Type: BLOOD Comment: Automated Differentia l Performed Ordering Provider: ANITRA MCCLAIN Report Released Date/Time: Aug 28, 2022 12:41 PM Reporting Lab: [facility] [address] Performing Lab: [facility] [address] [place] [facility] CBC & DIFF ERYTHROCYT ES [#/VOLUME] IN BLOOD BY AUTOMATED COUNT 4.14 4.6 - 6.2 08/28 L Specimen Type: BLOOD Comment: Automated Differentia l Performed Ordering Provider: ANITRA MCCLAIN Report Released Date/Time: Aug 28, 2022 12:41 PM Reporting Lab: [facility] [address] Performing Lab: [facility] [address] [place] [facility] CBC & DIFF HEMOGLOBIN [MASS/VOLU ME] IN BLOOD 12.6 13.5 - 17.9 08/28 L Specimen Type: BLOOD Comment: Automated Differentia l Performed Ordering Provider: ANITRA MCCLAIN Report Released Date/Time: Aug 28, 2022 12:41 PM Reporting Lab: [facility] [address] Performing Lab: [facility] [address] [place] [facility] CBC & DIFF HEMATOCRIT [VOLUME FRACTION] OF BLOOD BY AUTOMATED COUNT 38.5 41 - 54 08/28 L Specimen Type: BLOOD Comment: Automated Differentia l Performed Ordering Provider: ANITRA MCCLAIN Report Released Date/Time: Aug 28, 2022 12:41 PM Reporting Lab: [facility] [address] Performing Lab: [facility] [address] [place] [facility] CBC & DIFF MCV [ENTITIC VOLUME] BY AUTOMATED COUNT 93.0 80 - 100 08/28 Specimen Type: BLOOD Comment: Automated Differentia l Performed Ordering Provider: ANITRA MCCLAIN Report Released Date/Time: Aug 28, 2022 12:41 PM Reporting Lab: [facility] [address] Performing Lab: [facility] [address] [place] [facility] CBC & DIFF MCH [ENTITIC MASS] BY AUTOMATED COUNT 30.4 27 - 33 08/28 Specimen Type: BLOOD Comment: Automated Differentia l Performed Ordering Provider: ANITRA MCCLAIN Report Released Date/Time: Aug 28, 2022 12:41 PM Reporting Lab: [facility] [address] Performing Lab: [facility] [address] [place] [facility] CBC & DIFF MCHC [MASS/VOLU ME] BY AUTOMATED COUNT 32.7 32.0 - 37.5 08/28 Specimen Type: BLOOD Comment: Automated Differentia l Performed Ordering Provider: ANITRA MCCLAIN Report Released Date/Time: Aug 28, 2022 12:41 PM Reporting Lab: [facility] [address] Performing Lab: [facility] [address] [place] [facility] CBC & DIFF PLATELETS [#/VOLUME] IN BLOOD BY AUTOMATED COUNT 168 150 - 400 08/28 Specimen Type: BLOOD Comment: Automated Differentia l Performed Ordering Provider: ANITRA MCCLAIN Report Released Date/Time: Aug 28, 2022 12:41 PM Reporting Lab: [facility] [address] Performing Lab: [facility] [address] [place] [facility] CBC & DIFF PLATELET MEAN VOLUME [ENTITIC VOLUME] IN BLOOD BY AUTOMATED COUNT 9.6 7.4 - 10.4 08/28 Specimen Type: BLOOD Comment: Automated Differentia l Performed Ordering Provider: ANITRA MCCLAIN Report Released Date/Time: Aug 28, 2022 12:41 PM Reporting Lab: [facility] [address] Performing Lab: [facility] [address] [place] [facility] CBC & DIFF NEUTROPHIL S/100 LEUKOCYTES IN BLOOD BY MANUAL COUNT 66.2 08/28 Specimen Type: BLOOD Comment: Automated Differentia l Performed Ordering Provider: ANITRA MCCLAIN Report Released Date/Time: Aug 28, 2022 12:41 PM Reporting Lab: [facility] [address] Performing Lab: [facility] [address] [place] [facility] CBC & DIFF LYMPHOCYTE S/100 LEUKOCYTES IN BLOOD BY MANUAL COUNT 19.3 08/28 Specimen Type: BLOOD Comment: Automated Differentia l Performed Ordering Provider: ANITRA MCCLAIN Report Released Date/Time: Aug 28, 2022 12:41 PM Reporting Lab: [facility] [address] Performing Lab: [facility] [address] [place] [facility] CBC & DIFF MONOCYTES/ 100 LEUKOCYTES IN BLOOD BY AUTOMATED COUNT 9.6 08/28 Specimen Type: BLOOD Comment: Automated Differentia l Performed Ordering Provider: ANITRA MCCLAIN Report Released Date/Time: Aug 28, 2022 12:41 PM Reporting Lab: [facility] [address] Performing Lab: [facility] [address] [place] [facility] CBC & DIFF EOSINOPHIL S/100 LEUKOCYTES IN BLOOD BY AUTOMATED COUNT 3.4 08/28 Specimen Type: BLOOD Comment: Automated Differentia l Performed Ordering Provider: ANITRA MCCLAIN Report Released Date/Time: Aug 28, 2022 12:41 PM Reporting Lab: [facility] [address] Performing Lab: [facility] [address] [place] [facility] CBC & DIFF BASOPHILS/ 100 LEUKOCYTES IN BLOOD BY MANUAL COUNT 1.2 08/28 Specimen Type: BLOOD Comment: Automated Differentia l Performed Ordering Provider: ANITRA MCCLAIN Report Released Date/Time: Aug 28, 2022 12:41 PM Reporting Lab: [facility] [address] Performing Lab: [facility] [address] [place] [facility] CBC & DIFF ERYTHROCYT E DISTRIBUTI ON WIDTH [RATIO] BY AUTOMATED COUNT 13.0 11.5 - 14.5 08/28 Specimen Type: BLOOD Comment: Automated Differentia l Performed Ordering Provider: ANITRA MCCLAIN Report Released Date/Time: Aug 28, 2022 12:41 PM Reporting Lab: [facility] [address] Performing Lab: [facility] [address] [place] [facility] CBC & DIFF LYMPHOCYTE S [#/VOLUME] IN BLOOD BY AUTOMATED COUNT 1.14 1.0 - 4.0 08/28 Specimen Type: BLOOD Comment: Automated Differentia l Performed Ordering Provider: ANITRA MCCLAIN Report Released Date/Time: Aug 28, 2022 12:41 PM Reporting Lab: [facility] [address] Performing Lab: [facility] [address] [place] [facility] CBC & DIFF MONOCYTES [#/VOLUME] IN BLOOD BY AUTOMATED COUNT 0.57 0.1 - 1.0 08/28 Specimen Type: BLOOD Comment: Automated Differentia l Performed Ordering Provider: ANITRA MCCLAIN Report Released Date/Time: Aug 28, 2022 12:41 PM Reporting Lab: [facility] [address] Performing Lab: [facility] [address] [place] [facility] CBC & DIFF NEUTROPHIL S [#/VOLUME] IN BLOOD BY AUTOMATED COUNT 3.92 2.0 - 7.7 08/28 Specimen Type: BLOOD Comment: Automated Differentia l Performed Ordering Provider: ANITRA MCCLAIN Report Released Date/Time: Aug 28, 2022 12:41 PM Reporting Lab: [facility] [address] Performing Lab: [facility] [address] [place] [facility] CBC & DIFF EOSINOPHIL S [#/VOLUME] IN BLOOD BY AUTOMATED COUNT 0.20 0 - 0.5 08/28 Specimen Type: BLOOD Comment: Automated Differentia l Performed Ordering Provider: ANITRA MCCLAIN Report Released Date/Time: Aug 28, 2022 12:41 PM Reporting Lab: [facility] [address] Performing Lab: [facility] [address] [place] [facility] CBC & DIFF BASOPHILS [#/VOLUME] IN BLOOD BY AUTOMATED COUNT 0.07 0 - 0.2 08/28 Specimen Type: BLOOD Comment: Automated Differentia l Performed Ordering Provider: ANITRA MCCLAIN Report Released Date/Time: Aug 28, 2022 12:41 PM Reporting Lab: [facility] [address] Performing Lab: [facility] [address] [place] [facility] CBC & DIFF IG(META,MY LUISA,PRO) 0.3 08/28 Specimen Type: BLOOD Comment: Automated Differentia l Performed Ordering Provider: ANITRA MCCLAIN Report Released Date/Time: Aug 28, 2022 12:41 PM Reporting Lab: [facility] [address] Performing Lab: [facility] [address] [place] [facility] CBC & DIFF IMMATURE GRANULOCYT ES [PRESENCE] IN BLOOD BY AUTOMATED COUNT 0.02 0 - 0.1 08/28 Specimen Type: BLOOD Comment: Automated Differentia l Performed Ordering Provider: ANITRA MCCLAIN Report Released Date/Time: Aug 28, 2022 12:41 PM Reporting Lab: [facility] [address] Performing Lab: [facility] [address] [place] [facility] URINALYS IS COLOR OF URINE COLORLES S 08/28 Specimen Type: URINE No comment entered. Ordering Provider: ANITRA MCCLAIN Report Released Date/Time: Aug 28, 2022 12:41 PM Reporting Lab: [facility] [address] Performing Lab: [facility] [address] [facility] URINALYS IS SPECIFIC GRAVITY OF URINE 1.004 1.003 - 1.035 08/28 Specimen Type: URINE No comment entered. Ordering Provider: ANTIRA MCCLAIN Report Released Date/Time: Aug 28, 2022 12:41 PM Reporting Lab: [facility] [address] Performing Lab: [facility] [address] [facility] URINALYS IS BILIRUBIN. TOTAL [PRESENCE] IN URINE BY TEST STRIP NEGATIVE 08/28 Specimen Type: URINE No comment entered. Ordering Provider: ANITRA MCCLAIN Report Released Date/Time: Aug 28, 2022 12:41 PM Reporting Lab: [facility] [address] Performing Lab: [facility] [address] [facility] URINALYS IS KETONES [MASS/VOLU ME] IN URINE BY TEST STRIP NEGATIVE 08/28 Specimen Type: URINE No comment entered. Ordering Provider: ANITRA MCCLAIN Report Released Date/Time: Aug 28, 2022 12:41 PM Reporting Lab: [facility] [address] Performing Lab: [facility] [address] [place] [facility] URINALYS IS GLUCOSE [MASS/VOLU ME] IN URINE BY TEST STRIP NEGATIVE 08/28 Specimen Type: URINE No comment entered. Ordering Provider: ANITRA MCCLAIN Report Released Date/Time: Aug 28, 2022 12:41 PM Reporting Lab: [facility] [address] Performing Lab: [facility] [address] [place] [facility] URINALYS IS PROTEIN [MASS/VOLU ME] IN URINE BY TEST STRIP 50 08/28 Specimen Type: URINE No comment entered. Ordering Provider: ANITRA MCCLAIN Report Released Date/Time: Aug 28, 2022 12:41 PM Reporting Lab: [facility] [address] Performing Lab: [facility] [address] [place] [facility] URINALYS IS PH OF URINE BY TEST STRIP 6.0 5.0 - 8.0 08/28 Specimen Type: URINE No comment entered. Ordering Provider: ANITRA MCCLAIN Report Released Date/Time: Aug 28, 2022 12:41 PM Reporting Lab: [facility] [address] Performing Lab: [facility] [address] [place] [facility] URINALYS IS LEUKOCYTES [#/AREA] IN URINE SEDIMENT BY MICROSCOPY HIGH POWER FIELD 7 0 - 7 08/28 Specimen Type: URINE No comment entered. Ordering Provider: ANITRA MCCLAIN Report Released Date/Time: Aug 28, 2022 12:41 PM Reporting Lab: [facility] [address] Performing Lab: [facility] [address] [place] [facility] URINALYS IS BACTERIA [PRESENCE] IN URINE SEDIMENT BY LIGHT MICROSCOPY FEW 08/28 Specimen Type: URINE No comment entered. Ordering Provider: ANITRA MCCLAIN Report Released Date/Time: Aug 28, 2022 12:41 PM Reporting Lab: [facility] [address] Performing Lab: [facility] [address] [place] [facility] URINALYS IS ERYTHROCYT ES [#/AREA] IN URINE SEDIMENT BY MICROSCOPY HIGH POWER FIELD 10 0 - 3 08/28 H Specimen Type: URINE No comment entered. Ordering Provider: ANITRA MCCLAIN Report Released Date/Time: Aug 28, 2022 12:41 PM Reporting Lab: [facility] [address] Performing Lab: [facility] [address] [place] [facility] URINALYS IS APPEARANCE OF URINE TURBID 08/28 Specimen Type: URINE No comment entered. Ordering Provider: ANITRA MCCLAIN Report Released Date/Time: Aug 28, 2022 12:41 PM Reporting Lab: [facility] [address] Performing Lab: [facility] [address] [place] [facility] URINALYS IS EPITHELIAL CELLS.SQUA MOUS [#/AREA] IN URINE SEDIMENT BY MICROSCOPY HIGH POWER FIELD <1 08/28 Specimen Type: URINE No comment entered. Ordering Provider: ANITRA MCCLAIN Report Released Date/Time: Aug 28, 2022 12:41 PM Reporting Lab: [facility] [address] Performing Lab: [facility] [address] [place] [facility] URINALYS IS HEMOGLOBIN [PRESENCE] IN URINE BY TEST STRIP 3+ 08/28 Specimen Type: URINE No comment entered. Ordering Provider: ANITRA MCCLAIN Report Released Date/Time: Aug 28, 2022 12:41 PM Reporting Lab: [facility] [address] Performing Lab: [facility] [address] [place] [facility] URINALYS IS NITRITE [PRESENCE] IN URINE BY TEST STRIP NEGATIVE 08/28 Specimen Type: URINE No comment entered. Ordering Provider: ANITRA MCCLAIN Report Released Date/Time: Aug 28, 2022 12:41 PM Reporting Lab: [facility] [address] Performing Lab: [facility] [address] [place] [facility] URINALYS IS LEUKOCYTE ESTERASE [PRESENCE] IN URINE BY TEST STRIP 75 08/28 Specimen Type: URINE No comment entered. Ordering Provider: ANITRA MCCLAIN Report Released Date/Time: Aug 28, 2022 12:41 PM Reporting Lab: [facility] [address] Performing Lab: [facility] [address] [facility] Vital Signs Combined list of inpatient and outpatient Vital Signs from Department of [facility] and [facility], ranging from 12 months to all on record, depending upon the facility. Vital Sign Value Date Comments Source Encounters Combined list of: 1) Encounters from Department of [facility] facilities going back up to thelast 18 months. 2) Encounters from the Department of [facility] facilities going back up to 280 months. Location Location Details Encounter Type Encounter Number Reason For Visit Attending Provider ADM Date DC Date Status Disposition Source [facility] Outpatient Encounter [id number] 04/29 [facility] Outpatient Encounter [id number] 05/22 [facility] Outpatient Encounter [id number] SA RA Belen HIGGINS 06/10 [facility] Outpatient Encounter [id number] 06/13 [facility] ADM SARSCV2 BVL 30MCG/.3ML B [id number] Diagnos is: ICD-10- CM Z23 Encount er for immuniz ation<b r/> NO HIGGINS 06/13 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
MAL JJ 06/13 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
JENNIFER MCKEON 06/13 [facility] Outpatient Encounter [id number] 06/18 [facility] Outpatient Encounter [id number] Diagnos is: ICD-10- CM 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
Patricio DIA 06/19 [facility] Outpatient Encounter [id number] Diagnos is: ICD-10- CM E86.0 Dehydra tion
MAL JJ A 07/01 [facility] Outpatient Encounter [id number] 07/17 [facility] Outpatient Encounter [id number] 07/17 [facility] REMOVE IMPACTED EAR WAX UNI [id number] [id number] Diagnos is: ICD-10- CM H90.3 Sensori neural hearing loss, bilater al
NO GALVIN A 07/21 [facility] Outpatient Encounter [id number] Diagnos is: ICD-10- CM H53.9 Unspeci fied visual disturb ance
MAL JJ A 08/05 [facility] Outpatient Encounter [id number] 08/07 [facility] Outpatient Encounter [id number] AMERICA PACKER 08/12 [facility] Outpatient Encounter [id number] 08/12 [facility] Outpatient Encounter [id number] 08/18 [place] [facility] [place] [facility] Outpatient Encounter [id number] SYSTEM,CIS -ARK 08/19 [place] [facility] [facility] [place] [facility] Outpatient Encounter [id number] SYSTEM,CIS -ARK 08/20 [place] [facility] [place] [facility] OFF/OP CONSLTJ NEW/EST HI 55 [id number] [id number] Diagnos is: ICD-10- CM I65.21 Occlusi on and stenosi s of right carotid artery< br/> ANITRA MCCLAIN 08/20 [facility] [place] [facility] Inpatient Encounter [id number] Admit Reason: R CAROTID ARTERY STENOSI S
Paty MONTANO 08/20 [facility] RECHANNELI NG OF ARTERY [id number] [id number] Admit Reason: R CAROTID ARTERY STENOSI S
PILI MAURICE 08/20 [facility] [place] [facility] Inpatient Encounter [id number] 08/20 [facility] [place] [facility] Inpatient Encounter [id number] [id number] OANH DAVIES [place] 08/20 [place] [facility] [place] [facility] Inpatient Encounter [id number] [id number] VAUGHN JOYA 08/20 [place] [facility] [place] [facility] Inpatient Encounter [id number] [id number] OANH DAVIES [place] 08/20 [place] [facility] [place] [facility] Inpatient Encounter [id number] [id number] Flores ISLAS 08/20 [facility] [place] [facility] Inpatient Encounter [id number] [id number] SYSTEM,CIS -ARK 08/21 [place] [facility] [place] [facility] Inpatient Encounter [id number] [id number] [facility] [place] [facility] [place] [facility] Inpatient Encounter [id number] [id number] OANH DAVIES 08/21 [place] [facility] [place] [facility] Inpatient Encounter [id number] [id number] Paty MONTANO 08/21 [facility] [place] [facility] Inpatient Encounter [id number] [id number] TERENCENOEMI 08/21 [facility] [place] [facility] Inpatient Encounter [id number] [id number] 08/22 [facility] [place] [facility] Inpatient Encounter [id number] [id number] SYSTEM,CIS -ARK 08/22 [facility] [place] [facility] Inpatient Encounter [id number] [id number] TERRI DENNEY 08/22 [facility] OFFICE O/P EST MOD 30-39 MIN [id number] [id number] Diagnos is: ICD-10- CM I65.29 Occlusi on and stenosi s of 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 carotid artery< br/> LINO ADKINS 08/22 [facility] [place] [facility] INSERTION CATHETER ARTERY [id number] [id number] Diagnos is: ICD-10- CM I65.21 Occlusi on and stenosi s of right carotid artery< br/> TRILINO HERZOG 08/22 [facility] [place] [facility] Inpatient Encounter [id number] Diagnos is: ICD-10- CM I65.21 Occlusi on and stenosi s of right carotid artery< br/> ADRYPaty GeorgesO 08/22 [facility] [place] [facility] Inpatient Encounter [id number] [id number] AMERICA AWAD 08/22 [facility] Inpatient Encounter [id number] [id number] MEGAN GRIGSBY 08/22 [facility] Inpatient Encounter [id number] [id number] SYSTEM,CIS -ARK 08/22 [place] [place] [facility] Inpatient Encounter [id number] [id number] SYSTEM,CIS -ARK 08/22 [facility] Inpatient Encounter [id number] [id number] JOSTIN DWYER 08/22 [facility] [place] [facility] Inpatient Encounter [id number] [id number] YANELI CARABALLO 08/22 [facility] Inpatient Encounter [id number] [id number] SYSTEM,CIS -ARK 08/23 [facility] [place] [facility] Inpatient Encounter [id number] [id number] TERRI DENNEY 08/23 [facility] POSTOP FOLLOW-UP VISIT [id number] [id number] Diagnos is: ICD-10- CM Z48.89 Encount er for other specifi ed surgica l afterca re
Dana EVANS II 08/23 [place] [facility] [place] [facility] Inpatient Encounter [id number] [id number] JORDI SANCHEZ H 08/23 [place] [facility] [place] [facility] Inpatient Encounter [id number] [id number] Alessandro MONTANO TIEN A 08/23 [place] [facility] [place] [facility] Inpatient Encounter [id number] [id number] SYSTEM,CIS -ARK 08/24 [place] [facility] [place] [facility] Inpatient Encounter [id number] [id number] BANDAR JURADO M 08/24 [place] [facility] [place] [facility] Inpatient Encounter [id number] [id number] JORDI SANCHEZ H 08/24 [place] [facility] [place] [facility] Inpatient Encounter [id number] [id number] Alessandro MONTANO TIEN A 08/24 [place] [facility] [place] [facility] Inpatient Encounter [id number] [id number] SYSTEM,CIS -ARK 08/25 [place] [facility] [place] [facility] Inpatient Encounter [id number] [id number] BANDAR JURADO M 08/25 [place] [facility] [place] [facility] Inpatient Encounter [id number] [id number] PATRICIA BLUM W 08/25 [place] [facility] [place] [facility] Inpatient Encounter [id number] [id number] LINO CHAVIRA 08/25 [place] [facility] [place] [facility] Inpatient Encounter [id number] [id number] 08/25 [place] [facility] [place] [facility] Inpatient Encounter [id number] [id number] 08/26 [place] [facility] [place] [facility] Inpatient Encounter [id number] [id number] SYSTEM,CIS -ARK 08/26 [place] [facility] [place] [facility] Inpatient Encounter [id number] [id number] EDWARDVANDASURINDER MAIRA Shannon 08/26 [place] [facility] [place] [facility] Inpatient Encounter [id number] [id number] KAYLIN DORADO L 08/26 [place] [facility] [place] [facility] Inpatient Encounter [id number] [id number] MICHELLE BRENNER Y 08/26 [place] [facility] [place] [facility] Inpatient Encounter [id number] [id number] SYSTEM,CIS -ARK 08/27 [facility] [place] [facility] Inpatient Encounter [id number] [id number] CURTIS MOREIRA A 08/27 [facility] [place] [facility] Inpatient Encounter [id number] KAYLIN DORADO L 08/27 [place] [facility] [place] [facility] Inpatient Encounter [id number] [id number] Diagnos is: ICD-10- CM I10 Essenti al (primar y) hyperte nsion<b r/> MAL JJ A 08/27 [place] [facility] [place] [facility] Inpatient Encounter [id number] [id number] SYSTEM,CIS -ARK 08/28 [place] [facility] [place] [facility] Inpatient Encounter [id number] [id number] VERENICE HU Y 08/28 [place] [facility] [place] [facility] Inpatient Encounter [id number] 08/28 [place] [facility] [place] [facility] Inpatient Encounter [id number] [id number] 08/28 [place] [facility] [place] [facility] Inpatient Encounter [id number] [id number] 08/29 [place] [facility] [place] [facility] Inpatient Encounter [id number] [id number] SYSTEM,CIS -ARK 08/29 [place] [facility] [facility] [place] [facility] Inpatient Encounter [id number] 08/29 [place] [facility] [place] [facility] Inpatient Encounter [id number] [id number] 08/29 [place] [facility] PT EVAL LOW COMPLEX 20 MIN [id number] [id number] Diagnos is: ICD-10- CM R26.89 Other abnorma lities of gait and mobilit y
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
PERLA AZEVEDO 09/02 [facility] PRO PHONE CALL 5-10 MIN [id number] [id number] Diagnos is: ICD-10- CM Z71.9 Porter Sample Case ing, 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
TAWNY PARR 09/02 [facility] Outpatient Encounter [id number] [id number] 09/05 [facility] US URINE CAPACITY MEASURE [id number] [id number] Diagnos is: ICD-10- CM R33.9 Retenti on of urine, 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
JERAD SINGH 09/05 [facility] OFF/OP EST OCTOBER X REQ PHY/QHP [id number] [id number] JERAD SINGH 09/05 [facility] Outpatient Encounter [id number] 09/22 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
RAHUL VILLAFANA 09/27 [facility] Outpatient Encounter [id number] [id number] 09/29 [facility] PRO PHONE CALL 11-20 MIN [id number] [id number] Diagnos is: ICD-10- CM Z71.9 Porter Sample Case ing, 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
MARIA E CALERO 10/09 [facility] Outpatient Encounter [id number] Diagnos is: ICD-10- CM I65.21 Occlusi on and stenosi s of right carotid artery< br/> DUSTYP ADELSO CUADRA 11/04 [facility] Outpatient Encounter [id number] [id number] 11/06 [place] [facility] [place] [facility] Outpatient Encounter [id number] [id number] 11/07 [place] [facility] [place] [facility] Outpatient Encounter [id number] [id number] ELEN MORRIS 11/07 [place] [facility] [place] [facility] Outpatient Encounter [id number] [id number] 12/02 [facility] [place] [facility] OFFICE O/P EST MOD 30-39 MIN [id number] [id number] Diagnos is: ICD-10- CM R31.9 Hematur ia, 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
AAMIR HUYNH 12/04 [facility] [place] [facility] Outpatient [facility]counter [id number] [id number] 12/04 [facility] [place] [facility] Outpatient Encounter [id number] [id number] 12/04 [facility] [place] [facility] Outpatient Encounter [id number] [id number] ELEN MORRIS 12/05 [facility] [place] [facility] Outpatient Encounter [id number] [id number] KAREN BROWN 12/05 [facility] [place] [facility] HEARING AID CHECK BOTH EARS [id number] [id number] Diagnos is: ICD-10- CM Z46.1 Encount er for fitting and adjustm ent of hearing aid<br/ > ON GALVIN 12/17 [facility] [place] [facility] Outpatient Encounter [id number] [id number] KARLA HALE 12/23 [facility] [place] [facility] Outpatient Encounter [id number] [id number] 12/23 [facility] [place] [facility] ELECTROCAR DIOGRAM COMPLETE [id number] [id number] Diagnos is: ICD-10- CM Z13.6 Encount er for screeni ng for cardiov ascular disorde rs
Liseth IYER 01/01 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
Kaye VILLEGAS 01/01 [facility] OFFICE O/P EST MOD 30-39 MIN [id number] [id number] Diagnos is: ICD-10- CM 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
Patricio DIA 01/01 [facility] Outpatient Encounter [id number] 01/19 [facility] Outpatient Encounter [id number] [id number] Diagnos is: ICD-10- CM Z71.9 Porter Sample Case ing, 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
ENDY HERZOG 01/20 [facility] Outpatient Encounter [id number] [id number] 01/26 [facility] Outpatient Encounter [id number] [id number] 02/04 [facility] [place] [facility] Outpatient Encounter [id number] [id number] 03/13 [facility] [place] [facility] OFFICE O/P EST MOD 30-39 MIN [id number] [id number] Diagnos is: ICD-10- CM Z98.890 Other specifi ed postpro cedural states< br/> MAL JJ 03/13 [facility] IMMUNIZATI ON ADMIN [id number] [id number] Diagnos is: ICD-10- CM Z23 Encount er for immuniz ation<b r/> KAMWOODJORDANA JAZMIN MADRID 03/13 [facility] [place] [facility] Outpatient Encounter [id number] [id number] 03/17 [facility] [place] [facility] HC PRO PHONE CALL 5-10 MIN [id number] [id number] Diagnos is: ICD-10- CM Z71.9 Porter Sample Case ing, 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
ENDY HERZOG 03/17 [facility] [place] [facility] Outpatient Encounter [id number] [id number] 03/27 [facility] HEARING AID FITTING/CH ECKING 35359-6.61 [id number] Diagnos is: ICD-10- CM Z46.1 Encount er for fitting and adjustm ent of hearing aid<br/ > CAMILLE BACON 03/27 [facility] Outpatient Encounter [id number] [id number] 03/30 [facility] [place] [facility] Outpatient Encounter [id number] [id number] 04/01 [facility] [place] [facility] Outpatient Encounter [id number] [id number] 04/09 [facility] [place] [facility] Outpatient Encounter [id number] [id number] 05/06 [facility] HEARING AID REPAIR/MOD IFYING 99700-5.61 [id number] Diagnos is: ICD-10- CM H90.5 Unspeci fied sensori neural hearing loss
EMILEE SHEFFIELD 05/19 [facility] [place] [facility] Outpatient Encounter [id number] [id number] 05/29 [facility] [place] [facility] Outpatient Encounter [id number] [id number] 07/08 [facility] OFFICE O/P EST MOD 30 MIN 39538-5.61 [id number] Diagnos is: ICD-10- CM M25.569 Pain in 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 knee
APOLLO JJAlessandro Georges 07/10 [place] [facility] [place] [facility] Outpatient Encounter [id number] [id number] ALEXANDRA,ELEN NDA J 07/15 [place] [facility] [place] [facility] Outpatient Encounter [id number] [id number] 07/17 [place] [facility] [place] [facility] Outpatient Encounter [id number] [id number] ALEXANDRA,ELEN NDA J 07/22 [facility] [place] [facility] Outpatient Encounter [id number] [id number] 07/24 [place] [facility] [place] [facility] Outpatient [facility]counter [id number] [id number] 08/04 [facility] [place] [facility] OFF/OP EST MAY X REQ PHY/QHP 87690-7.61 [id number] Diagnos is: ICD-10- CM H90.3 Sensori neural hearing loss, bilater al
REBECCA RICK IDGET M 08/20 [facility] [place] [facility] ORTHC/PROS TC MGMT SBSQ ENC [id number] Diagnos is: ICD-10- CM M79.673 Pain in 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 foot
MARGI DARLING 08/20 [facility] [place] [facility] Outpatient Encounter [id number] 09/06 [facility] [place] [facility] Outpatient Encounter [id number] 09/06 [facility] [place] [facility] Outpatient Encounter [id number] 09/07 [facility] [place] [facility] Outpatient Encounter [id number] 09/09 [facility] [place] [facility] Outpatient Encounter [id number] ALEXANDRA,BRE BRADLYDestini Afshin 09/13 [facility] [place] [facility] Outpatient Encounter [id number] 09/15 [facility] [place] [facility] MTMS BY PHARM EST 15 MIN [id number] Diagnos is: ICD-10- CM Z79.01 long-term (curren t) use of anticoa gulants
KEVEN DANIELLE 09/16 [facility] [place] [facility] Outpatient Encounter [id number] 09/22 [facility] [place] [facility] Outpatient Encounter [id number] 09/23 [facility] [place] [facility] Outpatient Encounter [id number] Millie RAI 09/27 [facility] Procedures Combined list of: 1) Procedures from Department of Veterans Affairs facilities going back up to thelast 18 months, not all [place] non-surgical procedures are included; 2) All procedures from the Department of Defense facilities. Procedure Procedure Type Code Date Perfomer Comments Sourc e Right CEA RECHANNELING OF ARTERY 77796 3 OSIEL MONTANO RT-RIGHT SIDE [facility] Social History Combined list of available smoking, tobacco, and other social history from Department of Defense and Veterans Affairs facilities. Social History Type Response Date Comment Sourc e Tobacco smoking status NHIS [facility] FORMER USER 07/10/2023 [facility] of [facility] 5 Y[facility] OR MORE 07/10/2023 [facility] History of tobacco use [place] FORMER US[place] 06/13/2022 [facility] History of tobacco use [place]-TOBACCO FORMER USER 04/29/2021 [facility] History of tobacco use [place]-TO[place]ACCO NEVER USED 05/23/2019 [facility] History of tobacco use [place]-TOBACCO FORMER USER 04/01/2018 [facility] History of tobacco use FORMER TOBACCO US ER 7Y OR GREATER 06/16/2017 [facility] History of tobacco use FORMER TOBACCO US ER 7Y OR GREATER 05/12/2016 [facility] History of tobacco use FORMER TOBACCO US ER 7Y OR GREATER 05/24/2015 [facility] History of tobacco use 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 Additional future care activities may be listed in the Assessment and Plan section. Date/Time Care Activity Care Activity Detail Facili ty 12/04/2023 AMBULATORY - NONE AMBULATORY - NONE [facility] 12/22/2023 AMBULATORY - SURGERY AMBULATORY - SURGERY [facility] 01/21/2024 AMBULATORY - MEDICINE AMBULATORY - MEDICI [facility] 01/21/2024 AMBULATORY - MEDICINE AMBULATORY - MEDICI [facility] 01/21/2024 AMBULATORY - MEDICINE AMBULATORY - MEDICI NE [facility] 03/22/2024 AMBULATORY - NONE AMBULATORY - NONE [facility] 09/09/2023 Laboratory - Chemistry Order HEMOGLOBIN A 1C BLOOD [facility] 09/09/2023 Laboratory - Chemistry Order LIP ID PANEL,NON-FASTING PLASMA [facility] 09/09/2023 Laboratory - Chemistry Order BAS IC METABOLIC PANEL+MG PLASMA [facility] 09/11/2023 Consult Order COMMUNITY CARE-OPHTHALMOLOGY Cons Production Finisher's Choice [facility] Advance Directives List of completed, amended, or rescinded Advance Directives on record at [facility] facilities. An actual copy of the Directive is not included. Date Advance Directive Provider Source 04/29/2016 CLINICAL WARNING SANGEETA ALVARES [facility] 2014 CLINICAL WARNING ISAAC DARBY [facility] 04/01/2005 ADVANCE DIRECTIVE VALERIE MILLAN [facility]
--- OUTSIDE RECORDS SUMMARY | 2023-10-17 14:52 | XMS_ITS | Encounter Summary ---
Author Name [facility] Organization Department of Vetera ns Affairs Address [address] [place] [address] Support Name Relationship Address Phone TONY CULLEN Next of Kin [address] [place] [address] DEMIAN CULLENIN Emergency Contact [address] [place] [address] SUBHASH, ELIZABETH Next of Kin JOSE [facility] [address] [place] Insurance Providers: All historical and current Section [...] to Policy Hernández [facility] ([facility]) MEDICARE ADVANTAGE [facility] ([facility]) Jun 08, 2019 [id number] SUBHASH,BE RNARD PATIENT [facility] ([facility]) MEDICARE ADVANTAGE M[facility] ([facility]) Aug 06, 2013 [id number] [id number] SUBHASH,BE RNARD PATIENT Selected Encounter This section includes the information on record at [place] for the Encounter. Date/Time Encounter Type Encounter Description Reason Pro vider Source Sep 23, 2023 12:00 PM Outpatient Encounter OPHTHALMOLOGY IHE Encounter Template Text not used by [place] Plan of Treatment: Future Appointments (+ 6 [...] 20 appointments. The data comes from all [facility] Appointment Date/Time Appointment Type Appointme nt Facility Name Sep 28, 2023 11:53 AM AMBULATORY - NONE [place] [facility] Dec 04, 2023 01:30 PM AMBULATORY - NONE [place] [facility] [facility] Dec 22, 2023 12:30 PM AMBUL[place]ORY - [place] [facility] Jan 21, 2024 11:00 AM [facility] Jan 21, 2024 12:45 PM AMBULATORY - MEDICINE [facility] Jan 21, 2024 01:00 PM AMBULATORY - MEDICINE [facility] Mar 22, 2024 02:10 PM AMBULATORY - NONE [facility] Active, Pending, and Scheduled Orders This section includes a listing of several types of active, pending, and scheduled orders, including clinic medications orders, diagnostic test orders, procedure orders and consult orders; where the start date of the order is 45 days before the date of the Encounter or 45 days after the date of theEncounter. The data comes from all [facility]. Test Date/Time Test Type Test Details Facility Name Sep 09, 2023 12:00 AM Laboratory - Chemi stry Order HEMOGLOBIN A1C BLOOD [facility] Sep 09, 2023 12:00 AM Laboratory - Chemi stry Order LIPID PANEL,NON-FASTING PLASMA [facility] Sep 09, 2023 12:00 AM Laboratory - Chemi stry Order BASIC METABOLIC PANEL+MG PLASMA [facility] Sep 11, 2023 10:36 AM Consult Order COMMUNITY CARE-OPHTHALMOLOGY Cons Director Of Instrumental Music's Choice [facility] Social History: Smoking Status (Most [...] place. Date/Time Current Smoking Status Comment Facil itsergio Jul 10, 2023 01:45 PM VA-TOBACCO FORMER USER [facility] Tobacco Use History This section includes a history of the smoking, or tobacco-related health factors, that were collected on or before the date of the Encounter. The data comes from the [place] facility where the Encounter took place. Date/Time Smoking Status/Tobacco Use Comment F acility Jul 10, 2023 01:45 PM VA-TOBACCO QUIT 15 YRS OR MORE [facility] Jun 13, 2022 01:15 PM VA-TOBACCO FORMER USER [facility] Jun 13, 2022 01:15 PM VA-TOBACCO QUIT 15 YRS OR MORE [facility] Apr 29, 2021 12:45 PM VA-TOBACCO FORMER USER [facility] Apr 29, 2021 12:45 PM VA-TOBACCO QUIT 15 YRS OR MORE [facility] May 23, 2019 01:02 PM VA-TOBACCO NEVER USED [facility] Apr 01, 2018 12:53 PM VA-TOBACCO FORMER USER [facility] Apr 01, 2018 12:53 PM VA-TOBACCO QUIT 15 YRS OR MORE [facility] Jun 16, 2017 08:20 AM FORMER TOBACCO USER 7Y OR GREATE R [facility] May 12, 2016 11:04 AM FORMER TOBACCO USER 7Y OR GREATE R [facility] May 24, 2015 01:56 PM FORMER TOBACCO USER 7Y OR GREATE R [facility] Aug 09, 2014 09:40 AM LIFETIME NON-TOBACCO USER [facility] October 25, 2013 09:46 AM FORMER TOBACCO USER 7Y OR GREATE R [facility] Mar 17, 2007 02:35 PM FORMER TOBACCO USER 7Y OR GREATE R [facility] Mar 04, 2006 11:27 AM FORMER TOBACCO USE >1Y [facility] Advance Directives: All historical and current Section Date Range: From patient's date of to the date document was created. This section includes ALL of a patient's completed or amended [place] Advance and Rescinded Directives. The entries below indicate that a directive exists for the patient, but an actual copy is not included with this document. The data comes from all [facility]. Date Advance Directives Provider Source Apr 29, 2016 CLINICAL WARNING SANGEETA ALVARES [facility] 2014 CLINICAL WARNING ISAAC DARBY [facility] Apr 01, 2005 ADVANCE DIRECTIVE VALERIE MILLAN [facility] Encounter Notes: All associated encounter notes This section contains the clinical notes associated to the Encounter. Date/Time Encounter Note(s) Provider Source Sep 23, 2023 12:00 PM NONVA CONSULT: LOCAL TITLE: COMMUNITY CARE CONSULT OPHTH DISEASE MANAGEMENT STANDARD TITLE: NONVA CONSULT DATE OF NOTE: SEP 23, 2023@12:00 ENTRY DATE: SEP 30, 2023@11:10:43 AUTHOR: [place] EXP COSIGNER: URGENCY: STATUS: COMPLETED VistA Imaging - Scanned Document This record contains glasses Rx and recommendations for eye drops. SCANNED DOCUMENT SIGNATURE NOT REQUIRED Electronically Filed: 09/30/2023 by: [place] LPN LICENSE PRACTICAL NURSE Receipt Acknowledged By: 09/30/2023 11:22 /es/ NELLA SORIA APRN, PHOTOGRAPHY COORDINATOR FAMILY NURSE PRACTITIONER [place] [facility]
--- OUTSIDE RECORDS SUMMARY | 2023-10-17 14:52 | XMS_ITS | Encounter Summary ---
Author Name [facility] Organization Department of Vetera Affairs Address [address] [place] [address] Support Name Relationship Address Phone TONY CULLEN Next of Kin [address] [place] [address] SUBHASH TONY Emergency Contact [address] [facility] [place], [place] [phone] SUBHASH, ELIZABETH Next of Kin JOSE [facility] [address] [place] Insurance Providers: All historical and current Section [...] Patient's Relationship to Policy Hernández [facility] ([facility]) MEDICARE [facility] ([facility]) Jun 08, 2019 [id number] SUBHASH,BE RNARD PATIENT [facility] ([facility]) MEDICARE ADVANTAGE [facility] ([facility]) Aug 06, 2013 RIVAAB [id number] SUBHASH,BE RNARD PATIENT Selected Encounter This section includes the information on record at [place] for the Encounter. Date/Time Encounter Type Encounter Description Reason Provider Source Sep 28, 2023 11:53 AM Outpatient Encounter ADMIN PAT ACTIVTIES (MASNONCT) ANGELINE RAI Encounter Template Text not used by [place] Plan of Treatment: Future Appointments (+ 6 months) and Future Tests (+/- 45 days) The Plan of Treatment section includes future care activities for the patient from [facility] [place] [facility] This section includes future appointments and future orders which are active, pending or scheduled. Future Appointments This section includes appointments that were scheduled to occur 6 months from the date of the Encounter, up to a maximum of 20 appointments. The data comes from all [facility]. Appointment Date/Time Appointment Type Appointme nt Facility Name Dec 04, 2023 01:30 PM [facility] Dec 22, 2023 12:30 PM AMBULATORY - [place] [facility] Jan 21, 2024 11:00 AM AMBULATORY - MEDICINE [facility] Jan 21, 2024 12:45 PM AMBULATORY - MEDICINE [facility] Jan 21, 2024 01:00 PM AMBULATORY - MEDICINE [facility] Mar 22, 2024 02:10 PM AMBULATORY - NONE [facility] Active, Pending, and Scheduled Orders This section includes a listing of several types of active, pending, and scheduled orders, including clinic medications orders, diagnostic test orders, procedure orders and consult orders; where the start date of the order is 45 days before the date of the Encounter or 45 days after the date of theEncounter. The data comes from all [facility]. Test Date/Time Test Type Test Details Facility Name Sep 09, 2023 12:00 AM Laboratory - Chemi stry Order HEMOGLOBIN A1C BLOOD [facility] Sep 09, 2023 12:00 AM Laboratory - Chemi stry Order LIPID PANEL,NON-FASTING PLASMA [facility] Sep 09, 2023 12:00 AM Laboratory - Chemi stry Order BASIC METABOLIC PANEL+MG PLASMA [facility] Sep 11, 2023 10:36 AM Consult Order COMMUNITY CARE-OPHTHALMOLOGY Cons Line Cleaner's Choice [facility] Social History: Smoking Status (Most current) [...] 10, 2023 01:45 PM VA-TOBACCO FORMER USER [facility] Tobacco Use History This section includes a history of the smoking, or tobacco-related health factors, that were collected on or before the date of the Encounter. The data comes from the [place] facility where the Encounter took place. Date/Time Smoking Status/Tobacco Use Comment F acility Jul 10, 2023 01:45 PM VA-TOBACCO QUIT 15 YRS OR MORE [facility] Jun 13, 2022 01:15 PM VA-TOBACCO FORMER USER [facility] Jun 13, 2022 01:15 PM VA-TOBACCO QUIT 15 YRS OR MORE [facility] Apr 29, 2021 12:45 PM VA-TOBACCO FORMER USER [facility] Apr 29, 2021 12:45 PM VA-TOBACCO QUIT 15 YRS OR MORE [facility] May 23, 2019 01:02 PM VA-TOBACCO NEVER USED [facility] Apr 01, 2018 12:53 PM VA-TOBACCO FORMER USER [facility] Apr 01, 2018 12:53 PM VA-TOBACCO QUIT 15 YRS OR MORE [facility] Jun 16, 2017 08:20 AM FORMER TOBACCO USER 7Y OR GREATE R [facility] May 12, 2016 11:04 AM FORMER TOBACCO USER 7Y OR GREATE R [facility] May 24, 2015 01:56 PM FORMER TOBACCO USER 7Y OR GREATE R [facility] Aug 09, 2014 09:40 AM LIFETIME NON-TOBACCO USER [facility] October 25, 2013 09:46 AM FORMER TOBACCO USER 7Y OR GREATE R [facility] Mar 17, 2007 02:35 PM FORMER TOBACCO USER 7Y OR GREATE R [facility] Mar 04, 2006 11:27 AM FORMER TOBACCO USE >1Y [facility] Advance Directives: All historical and current [...] Encounter. Date/Time Encounter Note(s) Provider Source Sep 29, 2023 02:20 PM ADDENDUM: LOCAL TITLE: Addendum STANDARD TITLE: ADDENDUM DATE OF NOTE: SEP 29, 2023@14:20:32 ENTRY DATE: SEP 29, 2023@14:20:33 AUTHOR: ALBERTO THOMSON COSIGNER: URGENCY: STATUS: COMPLETED was seen in a Community ED. Records uploaded to chart. Please review and follow up as appropriate /luis eduardo/ ALBERTO THOMSON ADVANCED MSA Signed: 09/29/2023 14:20 Receipt Acknowledged By: 09/29/2023 15:03 /es/ Samira Loya MD STAFF PHYSICIAN for DESTINI JJ 09/29/2023 15:12 /es/ DAI BILL, MAGNETO ELECTRICIAN NURSE for GAIL HERZOG === --- Original Document --- 09/28/23 [facility] SELF PRESENTING CARE COORD PLAN NOTE: Emergency Notification Intake Date Presenting to the Facility: Sep Method of Contact: Notified from [employer] worklist Notification ID: [id number] [facility] Referral #: [facility] Name: Hospital: [facility] Address: City: [place] State: [place] Zip Code: Phone : Community Facility Point of Contact: Name: Phone: Chief complaint: SORE/INFECTED RIGHT FOOT Primary Diagnosis: Disposition Unknown at time of intake note entry /luis eduardo/ CAR[facility]OS ENRIQUE [facility] Signed: 09/28/2023 11:55 Receipt Acknowledged By: 09/29/2023 08:33 /es/ Angeline Rai MATTRESS PACKER jig maker Dry Cleaning Attendant 09/29/2023 ADDENDUM STATUS: COMPLETED Records requested and will be uploaded via Dianxini when received. /luis eduardo/ DAI VINCENT .GeronimoAdvanced Consulting Psychologist Signed: 09/29/2023 10:40 Receipt Acknowledged By: 09/29/2023 11:01 /luis eduardo/ DAI BILL, MAGNETO ELECTRICIAN NURSE for GAIL HERZOG 09/28/2023 ADDENDUM STATUS: COMPLETED VistA Imaging Scanned Document - Addendum. ED record 09.28.23 [facility] SCANNED DOCUMENT SIGNATURE NOT REQUIRED Electronically Filed: 09/29/2023 by: ALBERTO THOMSON ADVANCED MSA ALBERTO THOMSON [facility] Sep 29, 2023 10:40 AM ADDENDUM: LOCAL TITLE: Addendum STANDARD TITLE: ADDENDUM DATE OF NOTE: SEP 29, 2023@10:40:11 ENTRY DATE: SEP 29, 2023@10:40:12 AUTHOR: DAI VINCENT EXP COSIGNER: URGENCY: STATUS: COMPLETED Records requested and will be uploaded via [employer] when received. /luis eduardo/ DAI VINCENT ...Advanced Consulting Psychologist Signed: 09/29/2023 10:40 Receipt Acknowledged By: 09/29/2023 11:01 /luis eduardo/ DAI BILL MAGNETO ELECTRICIAN NURSE for GAIL HERZOG === --- Original Document --- 09/28/23 [facility] SELF PRESENTING CARE COORD PLAN NOTE: Emergency Notification Intake Date Presenting to the Facility: Sep Method of Contact: Notified from [facility] worklist Notification ID: [id number] [facility] Referral #: [facility] Name: Hospital: [facility] Address: City: [place] State: [place] Zip Code: Phone : [facility] Point of Contact: Name: Phone: Chief complaint: SORE/INFECTED RIGHT FOOT Primary Diagnosis: Disposition Unknown at time of intake note entry /es/ [facility] ENRIQUE [facility] Signed: 09/28/2023 11:55 Receipt Acknowledged By: 09/29/2023 08:33 /luis eduardo/ Angeline Rai MATTRESS PACKER jig maker Dry Cleaning Attendant DAI VINCENT [facility] Sep 28, 2023 11:54 AM NONVA NOTE: LOCAL TITLE: COMMUNITY CARE-[facility] SELF PRESENTING CARE COORD PLAN STANDARD TITLE: NONVA NOTE DATE OF NOTE: SEP 28, 2023@11:54 ENTRY DATE: SEP 28, 2023@11:54:40 AUTHOR: CARLOS ENRIQUE YEUNG EXP COSIGNER: URGENCY: STATUS: COMPLETED [facility] SELF PRESENTING CARE COORD PLAN NOTE Has ADDENDA Emergency Notification Intake Date Presenting to the Facility: Sep Method of Contact: Notified from [facility] worklist Notification ID: [id number] Referral #: [facility] Name: Hospital: [facility] Address: City: [place] State: [place] Zip Code: Phone : [facility] Point of Contact: Name: Phone: Chief complaint: SORE/INFECTED RIGHT FOOT Primary Diagnosis: Disposition Unknown at time of intake note entry /luis eduardo/ [facility] ENRIQUE [facility] Signed: 09/28/2023 11:55 Receipt Acknowledged By: 09/29/2023 08:33 /luis eduardo/ Angeline Rai, MATTRESS PACKER jig maker Dry Cleaning Attendant 09/29/2023 ADDENDUM STATUS: COMPLETED Records requested and will be uploaded via Dianxini when received. /luis eduardo/ DAI Tam [facility] ...Advanced Consulting Psychologist Signed: 09/29/2023 10:40 Receipt Acknowledged By: 09/29/2023 11:01 /luis eduardo/ DAI BILL, MAGNETO ELECTRICIAN NURSE for GAIL HERZOG 09/28/2023 ADDENDUM STATUS: COMPLETED VistA Imaging Scanned Document - Addendum. ED record 09.28.23 [facility] SCANNED DOCUMENT SIGNATURE NOT REQUIRED Electronically Filed: 09/29/2023 by: ALBERTO LR MSA 09/29/2023 ADDENDUM STATUS: COMPLETED [place] was seen in a Community ED. Records uploaded to chart. Please review and follow up as appropriate /luis eduardo/ ALBERTO LR MSA Signed: 09/29/2023 14:20 Receipt Acknowledged By: * AWAITING SIGNATURE * DESTINI JJ * AWAITING SIGNATURE * GAIL HERZOG COREY N [facility]
--- OUTSIDE RECORDS SUMMARY | 2023-10-17 14:52 | XMS_ITS | Clinical Summary ---
Author Name Unknown Organization [facility] Address [address] [place] [address] Care Team Providers Care Ice Guard Tester Name Role Phone Elsewhere, Pcp Primary Care Provider Unavailabl e Source Comments Patient records contain information from all sites at [facility]. For routine questions regarding patient records, call [phone] during business hours, M-F 8:00 AM - 5:00 PM Central Time. Record requests for emergency care only can be directed to [phone] at any time.[facility] Allergies No known active allergies Medications Medication [...] CDT Hospital Encounter Department of Radiology in [address] [address] Juventino Downey M.D. Primary Osteoarthritis Hip Right Discharge Disposition: Home or Self Care 09/10/2023 Orders Only Department of Orthopedic Surgery in [address] [address] Juventino Doweny M.D. Primary Osteoarthritis Hip Right (Primary Dx) 09/10/2023 Clinical Communication Department of Orthopedic Surgery in [address] [address] Juventino Downey M.D. Order Request 08/10/2023 1:00 PM RESEARCH COMPUTING SPECIALIST Office Visit Department of Orthopedic Surgery in [address] [place] [address] Juventino Downey M.D. Primary Osteoarthritis Knee Left (Primary Dx); Primary Osteoarthritis Knee Right; Primary Osteoarthritis Hip Right 08/10/2023 11:56 AM RESEARCH COMPUTING SPECIALIST - 08/10/2023 11:59 PM RESEARCH COMPUTING SPECIALIST Hospital Encounter Department of Radiology in [place], [place] [address] [address] Juventino Downey M.D. Primary Osteoarthritis Knee Left Discharge Disposition: Home or Self Care 08/10/2023 Clinical Communication Department of Orthopedic Surgery in [place], [place] [address] [address] Juventino Downey M.D. SURGERY DATE from Last 3 Months Immunizations Name Administration Dates Next Due HZV (ZOSTAVAX) 10/10/2011 Influenza (IM) Preservative Free 03/01/2019,03/09 Influenza, Unspecified 04/06/2014,2012,03/29/2012,2010,02/26/2010,03/09/2009,06/16/2008,1 ,03/25/2006,03/31/2005 PCV13 05/12/2016 PPSV23 10/09/2014 Pneumococcal, Unspecified 08/06/2007 RZV (SHINGRIX) 03/13/2020,12/21/2019 [...] Body Mass Index 31.84 04/27/2014 2:13 PM RESEARCH COMPUTING SPECIALIST Plan of Treatment Upcoming Encounters Date Type Department Care Team (Late st Contact Info) Description 10/20/2023 1:30 PM CDT Appointment Department of Radiology in [place], [place] [address] [place] [phone] Juventino Downey M.D. [address], [place] [address] Discharge Disposition: Home or Self Care 10/20/2023 2:30 PM CDT Office Visit Department of Family Medicine, [facility], in [place], [place] [address], [place] [address] Janette Be M.D. [address] [phone] 11/18/2023 1:30 PM CDT Office Visit Department of Orthopedic Surgery in [place], [place] [address] [place] [address] Brendan Porter P.A.-C. [address] [phone] 12/14/2023 10:30 AM CDT Appointment Department of Radiology in [place], [place] [address] [place] [address] Juventino Downey M.D. [address] [phone] 12/14/2023 11:15 AM CDT Office Visit Department of Orthopedic Surgery in [place], [place] [address] [address] Juventino Downey M.D. [address] [address] Health Maintenance Due Date Last Done Comments Creatinine Level (Kidney Fun ction Test) 08/13/2021 08/13/2020, 10/12/2013 Potassium Level 08/13/2021 08/13/2020, 10/12/2013 Sodium Level 08/13/2021 08/13/2020, 10/12/2013 Depression Screening (Annual PHQ-2) 06/08/2023 Fall Risk Screen (Annual) 06/08/2023 COVID-19 Vaccine (2022-07 4 season) 2023 03/13/2023, 06/13/2022, 03/08/2021, Additional [...] inpatients and all outpatients) 08/10/2023 12:19 PM RESEARCH COMPUTING SPECIALIST Primary Osteoarthritis Knee Left EXTI BASIC METABOLIC PANEL, S/P Routine 08/13/2020 4:50 AM RESEARCH COMPUTING SPECIALIST from Last 3 Months or Most Recently [...] medications. Patient Education provided by a care restaurant hourly team member. Ready to learn, no apparent learning barriers [...] medications. Patient Education provided by a care restaurant hourly team member. Ready tolearn, no apparent learning barriers were identified. Post-procedure careexplained; patient expressed understanding of the content. IMPRESSION: Successful fluoroscopic-guided therapeutic injection of the right hipjoint. Juventino Downey M.D. IMG FLUOROSCOPY P ROCEDURES * DX Knee Left 4+ Views (08/10/2023 12:19 PM RESEARCH COMPUTING SPECIALIST) Anatomical Region Laterality Modality Lower Extremity, Knee, Muscu loskeletal RST LOS, Musculoskeletal ARZ LOS, Muskuloskeletal FLA LOS Left Digit al Radiography Impressions 08/10/2023 12:57 PM RESEARCH COMPUTING SPECIALIST Severe tricompartmental osteoarthritic most prominent of the left medial compartment. Narrative 08/10/2023 12:57 PM RESEARCH COMPUTING SPECIALIST EXAM: DX KNEE LEFT 4+ VIEWS COMPARISON: Radiograph 12/22/2022 FINDINGS: No appreciable fracture. Tricompartmental osteoarthrosis most prominent in the medial compartments bilaterally with prominent hwjm-kc-[id number] articulation of the left knee with prominent osteophytic spurring. Moderate joint effusion. Prominent degenerative joint space narrowing of the right patella with mild lateral subluxation. Procedure Note Monty Hightower M.D. - 08/10/2023 EXAM: DX KNEE LEFT 4+ VIEWS COMPARISON: Radiograph 12/22/2022 FINDINGS: No appreciable fracture. Tricompartmental osteoarthrosis mostprominent in the medial compartments bilaterally with vdqgobckfxpwm-[id number] articulation of the left knee with prominent osteophyticspurring. Moderate joint effusion. Prominent degenerative joint space narrowing of the right patella with mild lateralsubluxation. IMPRESSION: Severe tricompartmental osteoarthritic most prominent of the left medialcompartment. Juventino SIMPSONG DIAGNOSTIC IM AGING PROCEDURES from Last 3 Months or Most Recently Relevant to Health Maintenance Care Teams Ice Guard Tester Relationship Specialty Start Date End Date Elsewhere, Pcp PCP - General 09/29/21
--- OUTSIDE RECORDS SUMMARY | 2023-10-17 14:52 | XMS_ITS ---
Author Name Unknown Organization [facility] Address [address] [place] [address] Care Team Providers Care Principal Planner Name Role Phone Unavailable Unavailable Unavailable Surgery Details Not on file Complications Check Surgery Details section. Procedure Estimated Blood Loss Check Surgery Details section. Procedure Findings Check Surgery Details section. Procedure Specimens Taken Check Surgery Details section.
--- OUTSIDE RECORDS SUMMARY | 2023-10-17 14:52 | XMS_ITS | Clinical Summary ---
Author Name Unknown Organization [facility] Address [place], [place] [address] Care Team Providers Care Broadcast Chief Engineer Name Role Phone Sai Kuo MD Primary Care Provider [phone] Allergies No known active allergies Medications Medication [...] Info) Description 10/20/2023 1:30 PM CDT Appointment [facility] Medical Imaging [address] [place] [phone] 11/04/2023 7:30 AM CDT Hospital Encounter [facility] [address] [place] [address] Juventino Downey MD [address] [phone] 11/04/2023 7:30 AM CDT - 11/04/2023 9:09 AM CDT Surgery [place] [address] [place] [phone] Juventino Downey MD [address] [phone] ARTHROPLASTY KNEE ROBOTIC ASSISTED-LEFT Scheduled Procedures Name [...] vaccine series Completed 03/13/2023, 06/13 Care Teams Broadcast Chief Engineer Relationship Specialty Start Date [place] [address] PCP - General Family Practice 08/13/20
--- OUTSIDE RECORDS SUMMARY | 2023-10-17 14:52 | XMS_ITS | Referral Summary ---
Author Name Unknown Organization [facility] Address [address] [place] [address] Care Team Providers Care Auto Parts Professional Name Role Phone Elsewhere, Pcp Primary Care Provider Unavailabl e Source Comments Patient records contain information from all sites at [facility]. For routine questions regarding patient records, call [phone] during business hours, M-F 8:00 AM - 5:00 PM Central Time. Record requests for emergency care only can be directed to [phone] at any time.[facility] Encounters Date Type Department Care Team Description 09/11/2023 2:29 PM CDT - 09/11/2023 11:59 PM CDT Hospital Encounter Department of Radiology in [place], [place] [address] [place] [place] [phone] Juventino Downey M.D. Primary Osteoarthritis Hip Right Discharge Disposition: Home or Self Care 09/10/2023 Orders Only Department of Orthopedic Surgery in [place], [place] [address] [place] [place] [phone] Juventino Downey M.D. Primary Osteoarthritis Hip Right (Primary Dx) 09/10/2023 Clinical Communication Department of Orthopedic Surgery in [place], [place] [address] [place] [place] [phone] Juventino Downey M.D. Order Request 08/10/2023 Clinical Communication Department of Orthopedic Surgery in [place], [place] [address] [place] [phone] Juventino Downey M.D. SURGERY DATE 08/10/2023 11:56 AM MACHINE OPERATOR PACKAGING - 08/10/2023 11:59 PM MACHINE OPERATOR PACKAGING Hospital Encounter Department of Radiology in [place], [place] [address] [place] [phone] Juventino Downey M.D. Primary Osteoarthritis Knee Left Discharge Disposition: Home or Self Care 08/10/2023 1:00 PM MACHINE OPERATOR PACKAGING Office Visit Department of Orthopedic Surgery in [place], [place] [address] [place] [phone] Juventino Downey M.D. Primary Osteoarthritis Knee Left [...] Body Mass Index 31.84 04/27/2014 2:13 PM MACHINE OPERATOR PACKAGING Plan of Treatment Upcoming Encounters Date Type Department Care Team (Late st Contact Info) Description 10/20/2023 1:30 PM CDT Appointment Department of Radiology in [place], [place] [address] [place] [phone] Juventino Downey M.D. [address] [place] [phone] Discharge Disposition: Home or Self Care 10/20/2023 2:30 PM CDT Office Visit Department of Family Medicine, [facility], in [place], [place] [address] [place] [phone] Janette Be M.D. [address] [place] [phone] 11/18/2023 1:30 PM CDT Office Visit Department of Orthopedic Surgery in [place], [place] [address] [place] [phone] Brendan Porter P.A.-C. [address] [phone] 12/14/2023 10:30 AM CDT Appointment Department of Radiology in [place], [place] [address] [place] [phone] Juventino Downey M.D. [address] [phone] 12/14/2023 11:15 AM CDT Office Visit Department of Orthopedic Surgery in [place], [place] [address] [phone] Juventino Downey M.D. [address] [phone] Procedures Procedure Name Priority Date/Time Associated Diagnosis Comments FL MAJOR JOINT ASPIRATION AND OR INJECTION RIGHT RAD - Routine (most inpatients and all outpatients) 09/11/2023 3:18 PM CDT Primary Osteoarthritis Hip Right DX KNEE LEFT 4+ VIEWS RAD - Routine (most inpatients and all outpatients) 08/10/2023 12:19 PM MACHINE OPERATOR PACKAGING Primary Osteoarthritis Knee Left EXTI BASIC METABOLIC PANEL, S/P Routine 08/13/2020 4:50 AM MACHINE OPERATOR PACKAGING from Last 3 Months or Most Recently [...] medications. Patient Education provided by a care steam shovel runner. Ready to learn, no apparent learning barriers [...] medications. Patient Education provided by a care steam shovel runner. Ready tolearn, no apparent learning barriers were identified. Post-procedure careexplained; patient expressed understanding of the content. IMPRESSION: Successful fluoroscopic-guided therapeutic injection of the right hipjoint. Juventino Downey M.D. IMG FLUOROSCOPY P ROCEDURES * DX Knee Left 4+ Views (08/10/2023 12:19 PM MACHINE OPERATOR PACKAGING) Anatomical Region Laterality Modality Lower Extremity, Knee, Muscu loskeletal RST LOS, Musculoskeletal ARZ LOS, Muskuloskeletal FLA LOS Left Digit al Radiography Impressions 08/10/2023 12:57 PM MACHINE OPERATOR PACKAGING Severe tricompartmental osteoarthritic most prominent of the left medial compartment. Narrative 08/10/2023 12:57 PM MACHINE OPERATOR PACKAGING EXAM: DX KNEE LEFT 4+ VIEWS COMPARISON: Radiograph 12/22/2022 FINDINGS: No appreciable fracture. Tricompartmental osteoarthrosis most prominent in the medial compartments bilaterally with prominent kaww-ez-wwnb articulation of the left knee with prominent osteophytic spurring. Moderate joint effusion. Prominent degenerative joint space narrowing of the right patella with mild lateral subluxation. Procedure Note Monty Hightower M.D. - 08/10/2023 EXAM: DX KNEE LEFT 4+ VIEWS COMPARISON: Radiograph 12/22/2022 FINDINGS: No appreciable fracture. Tricompartmental osteoarthrosis mostprominent in the medial compartments bilaterally with robqkhrzuzloo-va-pxij articulation of the left knee with prominent osteophyticspurring. Moderate joint effusion. Prominent degenerative joint space narrowing of the right patella with mild lateralsubluxation. IMPRESSION: Severe tricompartmental osteoarthritic most prominent of the left medialcompartment. Juventino DUNN DIAGNOSTIC IM AGING PROCEDURES from Last 3 Months or Most Recently Relevant to Health Maintenance Care Teams Auto Parts Professional Relationship Specialty Start Date End Date Elsewhere, Pcp PCP - General 09/29/21
--- OUTSIDE RECORDS SUMMARY | 2023-10-17 14:53 | XMS_ITS | Encounter Summary ---
Author Name Unknown Organization [facility] Address [address] [place] [address] Care Team Providers Care Production Administrator Name Role Phone Elsewhere, Pcp Primary Care Provider Unavailabl e Reason for Referral * Outpatient (Routine) - Closed Specialty Diagnoses / Procedures Referred By Contac t Referred To Contact Diagnoses Primary Osteoarthritis Hip Right Procedures FL Major Joint Aspiration And Or Injection Right GA ARTHCS ASP/INJ MJR JT WO US GA FLUORO GUIDE NDL PLC Juventino Downey M.D. [address] [place] [phone] [facility] Region Referral ID Status Reason Start Date Expiration Date Visits Re quested Visits Authorized [id number] Closed 09/10/2023 09/09/2024 1 1 Reason for Visit * Outpatient (Routine) - Closed Specialty Diagnoses / Procedures Referred By Contac t Referred To Contact Diagnoses Primary Osteoarthritis Hip Right Procedures FL Major Joint Aspiration And Or Injection Right GA ARTHCS ASP/INJ MJR JT WO US [place] FLUORO GUIDE NDL PLC Juventino Downey M.D. [address] [place] [phone] [facility] Region Referral ID Status Reason Start Date Expiration Date Visits Re quested Visits Authorized [id number] Closed 09/10/2023 09/09/2024 1 1 Encounter Details Date Type Department Care Team (Latest Contact Info) Description 09/11/2023 2:29 PM CDT - 09/11/2023 11:59 PM CDT Hospital Encounter Department of Radiology in [place], [place] [address] [place] [phone] Juventino Downey M.D. [address] [place] [phone] Primary Osteoarthritis Hip Right Discharge [...] PM CDT Appointment Department of Radiology in [place], [place] [address] [place] [phone] Juventino Downey M.D. [address] [phone] Discharge Disposition: Home or Self Care 10/20/2023 2:30 PM CDT Office Visit Department of Family Medicine, [facility], in [place], [place] [address] [phone] Janette Be M.D. [address] [phone] 11/18/2023 1:30 PM CDT Office Visit Department of Orthopedic Surgery in [place], [place] [address] [phone] Brendan Porter P.A.-C. [address] [phone] 12/14/2023 10:30 AM CDT Appointment Department of Radiology in [place], [place] [address] [phone] Juventino Downey M.D. [address] [phone] 12/14/2023 11:15 AM CDT Office Visit Department of Orthopedic Surgery in [place], [place] [address] [phone] Juventino Downey M.D. [address] [phone] documented as of this encounter Procedures Procedure [...] medications. Patient Education provided by a care logistics team lead. Ready to learn, no apparent learning barriers [...] medications. Patient Education provided by a care logistics team lead. Ready tolearn, no apparent learning barriers were identified. Post-procedure careexplained; patient expressed understanding of the content. IMPRESSION: Successful fluoroscopic-guided therapeutic injection of the right hipjoint. Juventino DUNN FLUOROSCOPY P ROCEDURES documented in this encounter [...] Total Score: 0 04/27/20 14 2:21 PM MANAGER NURSING HOME documented as of this encounter Care Teams Production Administrator Relationship Specialty Start Date End Date Elsewhere, Pcp PCP - General 09/29/21 documented as of this encounter
--- OUTSIDE RECORDS SUMMARY | 2023-10-17 14:53 | XMS_ITS | Encounter Summary ---
Author Name Unknown Organization [facility] Address [address] [place] [address] Care Team Providers Care Permastone Applicator Name Role Phone Elsewhere, Pcp Primary Care Provider Unavailabl e Reason for Referral * Outpatient (Routine) - Closed Specialty Diagnoses / Procedures Referred By Xuan mcmahan Referred To Contact Diagnoses Primary Osteoarthritis Knee Left Procedures DX Knee Left 4+ Views Juventino Downey M.D. [address] [place] [phone] [facility] Region Referral ID Status Reason Start Date Expiration Date Visits Re quested Visits Authorized [id number] Closed 08/07/2023 08/06/2024 1 1 ON TEACHER Reason for Visit * Outpatient (Routine) - Closed Specialty Diagnoses / Procedures Referred By Xuan mcmahan Referred To Contact Diagnoses Primary Osteoarthritis Knee Left Procedures DX Knee Left 4+ Views Juventino Downey M.D. [address], [place] [phone] [facility] Region Referral ID Status Reason Start Date Expiration Date Visits Re quested Visits Authorized [id number] Closed 08/07/2023 08/06/2024 1 1 Encounter Details Date Type Department Care Team (Latest Contact Info) Description 08/10/2023 11:56 AM VISION TEACHER - 08/10/2023 11:59 PM VISION TEACHER Hospital Encounter Department of Radiology in [place], [place] [address], [place] [phone] Juventino Downey M.D. [address] [place] [phone] Primary Osteoarthritis Knee Left Discharge [...] PM CDT Appointment Department of Radiology in [place], [place] [address] [phone] Juventino Downey M.D. [address] [phone] Discharge Disposition: Home or Self Care 10/20/2023 2:30 PM CDT Office Visit Department of Family Medicine, [facility], in [place], [place] [address] [phone] Janette Be M.D. [address] [phone] 11/18/2023 1:30 PM CDT Office Visit Department of Orthopedic Surgery in [place], [place] [address] [phone] Brendan Porter, PAlexAAlex-Shay. [address] [phone] 12/14/2023 10:30 AM CDT Appointment Department of Radiology in [place], [place] [address] [place] [phone] Juventino Downey M.D. [address], [place] [address] 12/14/2023 11:15 AM CDT Office Visit Department of Orthopedic Surgery in [place], [place] [address] [place] [address] Juventino Downey M.D. [address] [place] [phone] documented as of this encounter Procedures Procedure Name Priority Date/Time Associated Diagnosis Comments DX KNEE LEFT 4+ VIEWS RAD - Routine (most inpatients and all outpatients) 08/10/2023 12:19 PM VISION TEACHER Primary Osteoarthritis Knee Left documented in this encounter Results * DX Knee Left 4+ Views (08/10/2023 12:19 PM VISION TEACHER) Anatomical Region Laterality Modality Lower Extremity, Knee, Muscu loskeletal RST LOS, Musculoskeletal ARZ LOS, Muskuloskeletal FLA LOS Left Digit al Radiography Impressions 08/10/2023 12:57 PM VISION TEACHER Severe tricompartmental osteoarthritic most prominent of the left medial compartment. Narrative 08/10/2023 12:57 PM VISION TEACHER EXAM: DX KNEE LEFT 4+ VIEWS COMPARISON: Radiograph 12/22/2022 FINDINGS: No appreciable fracture. Tricompartmental osteoarthrosis most prominent in the medial compartments bilaterally with prominent bloe-tz-wbtd articulation of the left knee with prominent osteophytic spurring. Moderate joint effusion. Prominent degenerative joint space narrowing of the right patella with mild lateral subluxation. Procedure Note Monty Hightower M.D. - 08/10/2023 EXAM: DX KNEE LEFT 4+ VIEWS COMPARISON: Radiograph 12/22/2022 FINDINGS: No appreciable fracture. Tricompartmental osteoarthrosis mostprominent in the medial compartments bilaterally with ovzesnrdlptea-od-dalu articulation of the left knee with prominent [...] Total Score: 0 04/27/20 14 2:21 PM VISION TEACHER documented as of this encounter Care Teams Permastone Applicator Relationship Specialty Start Date End Date Elsewhere, Pcp PCP - General 09/29/21 documented as of this encounter
--- OUTSIDE RECORDS SUMMARY | 2023-10-17 14:53 | XMS_ITS | Encounter Summary ---
Author Name Unknown Organization [facility] Address [address] [place] [address] Care Team Providers Care Title One Kindergarten Teacher Name Role Phone Elsewhere, Pcp Primary Care Provider Unavailabl e Reason for Visit * Reason Onset Date Comments Order Request 09/10/2023 Encounter Details Date Type Department Care Team (Late Contact Info) Description 09/10/2023 Clinical Communication Department of Orthopedic Surgery in [place], [place] [address] [place] [phone] Juventino Downey M.D. [address], [place] [phone] Order Request Social History Tobacco [...] Department Care Team (Late Contact Info) Description 10/20/2023 1:30 PM CDT Appointment Department of Radiology in [place], [place] [address], [place] [address] Juventino Downey M.D. [address], [place] [phone] Discharge Disposition: Home or Self Care 10/20/2023 2:30 PM CDT Office Visit Department of Family Medicine, [facility], in [place], [place] [address] [phone] Janette Be M.D. [address] [phone] 11/18/2023 1:30 PM CDT Office Visit Department of Orthopedic Surgery in [place], [place] [address] [place] [phone] Brendan Porter P.A.-C. [address] [phone] 12/14/2023 10:30 AM CDT Appointment Department of Radiology in [place], [place] [address] [place] [phone] Juventino Downey M.D. [address] [phone] 12/14/2023 11:15 AM CDT Office Visit Department of Orthopedic Surgery in [place], [place] [address] [phone] Juventino Downey M.D. [address] [phone] documented as of this encounter Visit Diagnoses Not on filedocumented in this encounter Additional Health Concerns Assessment Noted Time PHQ-9 Depression Total Score: 0 04/27/20 14 2:21 PM RN VASCULAR documented as of this encounter Care Teams Title One Kindergarten Teacher Relationship Specialty Start Date End Date Elsewhere, Pcp PCP - General 09/29/21 documented as of this encounter
--- OUTSIDE RECORDS SUMMARY | 2023-10-17 14:53 | XMS_ITS | Encounter Summary ---
Author Name Unknown Organization [facility] Address [address] [place] [address] Care Team Providers Care Bank Consultant Name Role Phone Elsewhere, Pcp Primary Care Provider Unavailabl e Reason for Referral * Outpatient (Routine) - Closed Specialty Diagnoses / Procedures Referred By Contac t Referred To Contact Diagnoses Primary Osteoarthritis Hip Right Procedures FL Major Joint Aspiration And Or Injection Right [place] ARTHCS ASP/INJ MJR JT WO US [place] FLUORO GUIDE NDL PLC Juventino Downey M.D. [address] [place] [phone] [facility] Region Referral ID Status Reason Start Date Expiration Date Visits Re quested Visits Authorized [id number] Closed 09/10/2023 09/09/2024 1 1 Encounter Details Date Type Department Care Team (Late st Contact Info) Description 09/10/2023 Orders Only Department of Orthopedic Surgery in [place], [place] [address] [place] [phone] Juventino Downey M.D. [address] [place] [phone] Primary Osteoarthritis Hip Right (Primary [...] PM CDT Appointment Department of Radiology in [place], [place] [address] [phone] Juventino Downey M.D. [address] [phone] Discharge Disposition: Home or Self Care 10/20/2023 2:30 PM CDT Office Visit Department of Family Medicine, [facility], in [place], [place] [address] [phone] Janette Be M.D. [address] [phone] 11/18/2023 1:30 PM CDT Office Visit Department of Orthopedic Surgery in [place], [place] [address] [phone] Brendan Porter, PAlexAAlex-[place] [address] [phone] 12/14/2023 10:30 AM CDT Appointment Department of Radiology in [place], [place] [address] [phone] Juventino Downey M.D. [address] [phone] 12/14/2023 11:15 AM CDT Office Visit Department of Orthopedic Surgery in [place], [place] [address] [place] [phone] Juventino Downey M.D. [address] [place] [phone] documented as of this encounter Results * [...] Patient Education provided by a care steam station supervisor. Ready to learn, no apparent learning barriers [...] Patient Education provided by a care steam station supervisor. Ready tolearn, no apparent learning barriers were [...] Total Score: 0 04/27/20 14 2:21 PM TRACK PATROL documented as of this encounter Care Teams Bank Consultant Relationship Specialty Start Date End Date Elsewhere, Pcp PCP - General 09/29/21 documented as of this encounter
--- OUTSIDE RECORDS SUMMARY | 2023-10-17 14:53 | XMS_ITS | Encounter Summary ---
Author Name Unknown Organization [facility] Address [address] [place] [address] Care Team Providers Care Communication Center Operator Name Role Phone Elsewhere, Pcp Primary Care Provider Unavailabl e Reason for Referral * Outpatient (Routine) - Authorized Specialty Diagnoses / Procedures Referred By Xuan t Referred To Contact Diagnoses Primary Osteoarthritis Knee Left Procedures DX Knee Left Standing 3 Views Juventino Downey M.D. [address] [phone] [facility] Region Referral ID Status Reason Start Date Expiration Date V isits Requested Visits Authorized [id number] Authorized 08/10/2023 08/09/2024 1 1 [employer] SAL[employer]ANT * MRI/CAT/PET Scan (Routine) - Authorized Specialty Diagnoses / Procedures Referred By Contac t Referred To Contact Radiology Diagnoses Primary Osteoarthritis Knee Left Procedures CT Knee Left without IV Contrast DE CT LWR EXT WO CNTRST Juventino Downey M.D. [address] [place] [address] [facility] Region Referral ID Status Reason Start Date Expiration Date V isits Requested Visits Authorized [id number] Authorized 08/10/2023 08/09/2024 1 1 [employer] SAL[employer] CONSULTANT * Outpatient (Routine) - Authorized Specialty Diagnoses / Procedures Referred By Contac t Referred To Contact Family Medicine Diagnoses Primary Osteoarthritis Knee Left Juventino Downey M.D. [address] [place] [address] [facility] Region Referral ID Status Reason Start Date Expiration Date V isits Requested Visits Authorized [id number] Authorized 08/10/2023 02/08/2025 1 1 [employer] SAL[employer] CONSULTANT * Outpatient (Routine) - Authorized Specialty Diagnoses / Procedures Referred By Contac t Referred To Contact Orthopedic Surgery Juventino Downey M.D. [address] [address] [facility] Region Referral ID Status Reason Start Date Expiration Date V isits Requested Visits Authorized [id number] Authorized 08/10/2023 02/08/2025 1 1 [employer] SALES CONSULTANT * Outpatient (Routine) - Authorized Specialty Diagnoses / Procedures Referred By Contac t Referred To Contact Orthopedic Surgery Juventino Downey M.D. [address] [address] Yani Riley P.A.-C., P.A. [address] [place] [address] Referral ID Status Reason Start Date Expiration Date V isits Requested Visits Authorized [id number] Authorized 08/10/2023 02/08/2025 1 1 [employer] SALES CONSULTANT * Outpatient (Routine) - Authorized Specialty Diagnoses / Procedures Referred By Contac t Referred To Contact Orthopedic Surgery Juventino Downey M.D. [address] [address] [facility] Region Referral ID Status Reason Start Date Expiration Date V isits Requested Visits Authorized [id number] Authorized 08/10/2023 02/08/2025 1 1 [employer] SALES CONSULTANT * Outpatient (Routine) - Closed Specialty Diagnoses / Procedures Referred By Xuan mcmahan Referred To Contact Diagnoses Primary Osteoarthritis Knee Left Procedures DX Knee Left 4+ Views Juventino Donwey M.D. [address] [place] [phone] [facility] Region Referral ID Status Reason Start Date Expiration Date Visits Re quested Visits Authorized [id number] Closed 08/07/2023 08/06/2024 1 1 [employer] SAL[employer] CONSULTANT Reason for Visit * Reason Comments Pre-op Exam Arthroplasty * Appointment Request (Routine) - Closed Specialty Diagnoses / Procedures Referred By Xuan mcmahan Referred To Contact Orthopedic Surgery Diagnoses Discuss Left and Right TKA, and right hip, and would like xrays. Procedures ORS EST Lorenza Cameron M.B.BAlexS. [address] [place] [address] Juventino Downey M.D. [address] [place] [phone] Referral ID Status Reason Start Date Expiration Date Visits Re quested Visits Authorized [id number] Closed 08/10/2023 02/06/2024 1 1 Encounter Details Date Type Department Care Team (Latest Contact Info) Description 08/10/2023 1:00 PM [employer] SAL[employer] CONSULTANT Office Visit Department of Orthopedic Surgery in [place], [place] [address] [place] [phone] Juventino Downey M.D. [address] [place] [phone] Primary Osteoarthritis Knee Left (Primary Dx); [...] Jaida Bloom L.P.N. - 08/10/2023 1:00 PM [employer] SAL[employer] CONSULTANT Patient to be scheduled for left total knee arthroplasty with Dr. Downey. [facility] Knee Replacement Patient Education booklet was given and reviewed with patient verbalizing understanding of information. [facility] Medical Necessity form was completed and given [...] in right leg. [facility]. Information was given and reviewed on Pre-operative teaching class at [facility]. Patient will call [facility] to confirm the pre-operative session they will attend. Patient does live alone andplans on going to a rehabilitation facility after surgery. Y [employer] SALES CONSULTANT documented in this encounter Progress Notes * [...] as an inpatient and will need a residential stay afterwards as [place] Y PLAN SALES CONSULTANT documented in this encounter Plan of Treatment Upcoming Encounters Date Type Department Care Team (Late st Contact Info) Description 10/20/2023 1:30 PM CDT Appointment Department of Radiology in [place], [place] [address] [place] [phone] Juventino Downey M.D. [address] [place] [address] Discharge Disposition: Home or Self Care 10/20/2023 2:30 PM CDT Office Visit Department of Family Medicine, [facility], in [place], [place] [address], [place] [address] Janette Be M.D. [address] [phone] 11/18/2023 1:30 PM CDT Office Visit Department of Orthopedic Surgery in [place], [place] [address] [phone] Brendan Porter P.A.-[place] [address] [phone] 12/14/2023 10:30 AM CDT Appointment Department of Radiology in [place], [place] [address] [address] Juventino Downey M.D. [address] [phone] 12/14/2023 11:15 AM CDT Office Visit Department of Orthopedic Surgery in [place], [place] [address] [address] Juventino Downey M.D. [address] [phone] Scheduled Orders Name Type Priority Associated Diagnoses [...] Knee Left 4+ Views (08/10/2023 12:19 PM [employer] SAL[employer] CONSULTANT) Anatomical Region Laterality Modality Lower Extremity, Knee, Muscu loskeletal RST LOS, Musculoskeletal ARZ LOS, Muskuloskeletal FLA LOS Left Digit al Radiography Impressions 08/10/2023 12:57 PM [employer]Y [employer] SALES CONSULTANT Severe tricompartmental osteoarthritic most prominent of the left medial compartment. Narrative 08/10/2023 12:57 PM [employer]Y PL[employer] SALES CONSULTANT EXAM: DX KNEE LEFT 4+ VIEWS COMPARISON: Radiograph 12/22/2022 FINDINGS: No appreciable fracture. Tricompartmental osteoarthrosis most prominent in the medial compartments bilaterally with prominent xiiz-pi-ltdc articulation of the left knee with prominent osteophytic spurring. Moderate joint effusion. Prominent degenerative joint space narrowing of the right patella with mild lateral subluxation. Procedure Note Monty Hightower M.D. - 08/10/2023 EXAM: DX KNEE LEFT 4+ VIEWS COMPARISON: Radiograph 12/22/2022 FINDINGS: No appreciable fracture. Tricompartmental osteoarthrosis mostprominent in the medial compartments bilaterally with sszwntgcdhxos-ri-zqsf articulation of the left knee with prominent [...] Total Score: 0 04/27/20 14 2:21 PM [employer]Y PL[employer] SALES CONSULTANT documented as of this encounter Care Teams Communication Center Operator Relationship Specialty Start Date End Date Elsewhere, Pcp PCP - General 09/29/21 documented as of this encounter
--- OUTSIDE RECORDS SUMMARY | 2023-10-17 14:53 | XMS_ITS | Encounter Summary ---
Author Name Unknown Organization [facility] Address [address] [place] [address] Care Team Providers Care Captain/Check Airman Name Role Phone Elsewhere, Pcp Primary Care Provider Unavailabl e Reason for Visit * Reason Onset Date Comments SURGERY DATE 08/10/2023 Encounter Details Date Type Department Care Team (Late Contact Info) Description 08/10/2023 Clinical Communication Department of Orthopedic Surgery in [place], [place] [address] [place] [phone] Juventino Downey M.D. [address] [address] SURGERY DATE Social History Tobacco [...] PM CDT Appointment Department of Radiology in [place], [place] [address], [place] [address] Juventino Downey M.D. [address] [phone] Discharge Disposition: Home or Self Care 10/20/2023 2:30 PM CDT Office Visit Department of Family Medicine, [facility], in [place], [place] [address] [address] Janette Be M.D. [address] [phone] 11/18/2023 1:30 PM CDT Office Visit Department of Orthopedic Surgery in [place], [place] [address] [place] [phone] Brendan Porter P.A.-C. [address] [phone] 12/14/2023 10:30 AM CDT Appointment Department of Radiology in [place], [place] [address] [place] [phone] Juventino Downey M.D. [address] [phone] 12/14/2023 11:15 AM CDT Office Visit Department of Orthopedic Surgery in [place], [place] [address] [phone] Juventino Downey M.D. [address] [phone] documented as of this encounter Visit Diagnoses Not on filedocumented in this encounter Additional Health Concerns Assessment Noted Time PHQ-9 Depression Total Score: 0 04/27/20 14 2:21 PM [employer] documented as of this encounter Care Teams Captain/Check Airman Relationship Specialty Start Date End Date Elsewhere, Pcp PCP - General 09/29/21 documented as of this encounter
[2023-10-17 15:25] LABS: PCR FLU A Negative PCR FLU A (Negative); PCR FLU B Negative PCR FLU B (Negative); PCR RSV Negative PCR RSV (Negative); SARS PCR* Negative SARS-CoV-2 (Negative)
== END 2023-10-17 16:36 | disposition home or self-care (01) ==
PROVIDERS: Emergency Provider Emergency Medicine Emergency Medical Services
DX: J06.9 Acute upper respiratory infection, unspecified (principal)
CPT/HCPCS: 71046; 87631; 99283; 99284; J1100

== ENCOUNTER 2023-11-12 12:06 | Emergency (ER) | payer OTHER, MEDICARE, SELFPAY ==
[2023-11-12 12:16] VITALS: BP 143/81; PULSE 71; RESP 18; TEMP 36.3; O2SAT 97; BMI 31.9
--- OUTSIDE RECORDS SUMMARY | 2023-11-12 12:52 | XMS_ITS | Continuity of Care Document ---
Author Name [facility] Organization [facility] Care Team Providers Care Nerve Specialist Name Role Phone [facility] Unavailable Unavailable Problems Combined list of problems from Department of Defense and [facility] Affairs facilities. It does not include entries that were removed or entered in error. 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 [facility] Cataract nos Active Condition [facility] Constipation Active Condition [facility] Environmental Allergies (ICD-9-CM 477.9) Active Condition [facility] External thrombosed hemorrhoids (ICD-9-CM 455.4) Active Condition [facility] Gastroesophageal Reflux Disorder * (ICD-9-CM 530.81) Active Condition [facility] Gout * (ICD-9-CM 274.9) Active Condition [facility] Hiatal hernia * (ICD-9-CM 553.3) Active Condition [facility] History of carotid endarterectomy Active Condition Mar 13, 2023 Entered By: DESTINI JJ Comment: Rt CEA and bovine patch repair, 08/2022 [facility] Hyperlipidemia Active Condition [facility] Hypertension, Nos Active [facility] Knee pain Active Condition [facility] Long-term current use of anticoagulant Active Condition [facility] Obesity * (ICD-9-CM 278.00) Active Condition [facility] Obstructive Sleep Apnea (Adult) (Pediatric) (ICD-9-CM 327.23) Active Condition [facility] Obstructive sleep apnea syndrome Active Condition [facility] Osteoarthritis Active Condition Aug 072012 Entered By: VALERY BRITO Comment: S/P left total hip in 2005. 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 local loading inspector [facility] Ventricular premature complex Active Condition [facility] Diagnosis: ICD-10-CM Z79.01 nursing home (current) use of anticoagulants Active Diagnosis ISAIAH Tam [facility] Diagnosis: ICD-10-CM M79.673 Pain in unspecified foot Active Diagnosis KATIA BAILEY [facility] Diagnosis: ICD-10-CM H90.3 Sensorineural hearing loss, bilateral Active Diagnosis [facility] Diagnosis: ICD-10-CM M25.569 Pain in unspecified knee Active Diagnosis KATIA BAILEY [facility] Diagnosis: ICD-10-CM H90.5 Unspecified sensorineural hearing loss Active Diagnosis [facility] Diagnosis: ICD-10-CM Z46.1 Encounter for fitting and adjustment of hearing aid Active Diagnosis [facility] Diagnosis: ICD-10-CM Z71.9 Counseling, unspecified Active Diagnosis [facility] Diagnosis: ICD-10-CM Z23 Encounter for immunization Active Diagnosis [facility] Diagnosis: ICD-10-CM Z98.890 Other specified postprocedural states Active Diagnosis [facility] Diagnosis: ICD-10-CM 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 [facility] Yonatan [facility] Diagnosis: ICD-10-CM Z13.6 Encounter for screening for cardiovascular disorders Active Diagnosis [facility] Diagnosis: ICD-10-CM R31.9 Hematuria, unspecified Active Diagnosis [facility] Diagnosis: ICD-10-CM I65.21 Occlusion and stenosis of right carotid artery Active [facility] Diagnosis: ICD-10-CM H93.13 Tinnitus, bilateral Active Diagnosis [facility] Diagnosis: ICD-10-CM R33.9 Retention of urine, unspecified Active Diagnosis NICOLÁS CARCAMO [facility] Diagnosis: ICD-10-CM Z71.89 Other specified counseling Active Diagnosis [facility] Diagnosis: ICD-10-CM R26.89 Other abnormalities of gait and mobility Active Diagnosis [facility] SEQUEIRA [facility] Diagnosis: ICD-10-CM I10 Essential (primary) hypertension Active Diagnosis [facility] Diagnosis: ICD-10-CM Z48.89 Encounter for other specified surgical aftercare Active Diagnosis [facility] CAR[facility]O [facility] Diagnosis: ICD-10-CM I65.29 Occlusion and stenosis of unspecified carotid artery Active Diagnosis [facility] Yonatan [facility] Admit Reason: R CAROTID ARTERY STENOSIS Active Diagnosis [facility] Diagnosis: ICD-10-CM H53.9 Unspecified visual disturbance Active Diagnosis [facility] Diagnosis: ICD-10-CM E86.0 Dehydration Active Diagnosis [facility] Diagnosis: ICD-10-CM 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 [facility] Medications Combined list of outpatient medications [...] A DAY NEEDED FOR PAIN FOR PAIN ORAL 09/27/2022 [id number] PATRIC MAURICE 2022 100 [facility] APIXABAN 5MG TAB TAKE ONE TABLET BY MOUTH EVERY 12 HOURS TO TREAT AND/OR PREVENT BLOOD CLOTS ORAL ACTIVE 05/25/2024 [id number] 4 NO AZEVEDO 2023 180 [facility] APIXABAN 5MG TAB TAKE ONE TABLET BY MOUTH EVERY 12 HOURS TO TREAT AND/OR PREVENT BLOOD CLOTS ORAL DISCONT INUED 09/03/2023 [id number] 3 NO AZEVEDO 2022 180 [facility] APIXABAN 5MG TAB TAKE ONE TABLET BY MOUTH EVERY 12 HOURS TO PREVENT BLOOD CLOTS ORAL DISCONT INUED 09/28/2022 [id number] ANITRA LU 2022 60 [facility] APIXABAN 5MG TAB TAKE ONE TABLET BY MOUTH EVERY 12 HOURS TO PREVENT BLOOD CLOTS ORAL DISCONT INUED 02/21/2023 [id number] 3 NITHYA CAIN 2021 180 [facility] ASPIRIN 81MG TAB,EC TAKE ONE TABLET BY MOUTH EVERY DAY TO PREVENT BLOOD CLOTS DO NOT CHEW ORAL ACTIVE 11/10/2024 [id number] APOLLO JJ 2023 120 [facility] ASPIRIN 81MG TAB,EC TAKE ONE TABLET BY MOUTH EVERY DAY TO PREVENT BLOOD CLOTS DO NOT CHEW ORAL 08/29/2023 [id number] PATRIC MAURICE 2022 120 [place] [facility] ATORVASTATI N CA 40MG TAB TAKE ONE TABLET BY MOUTH AT BEDTIME FOR CHOLESTE ROL ORAL SUSPEND ED 06/04/2024 [id number] 4 JJ,IN NA 2023 90 [place] [facility] ATORVASTATI N CA 40MG TAB TAKE ONE TABLET BY MOUTH AT BEDTIME FOR CHOLESTE ROL ORAL DISCONT INUED 08/21/2023 [id number] JJ,IN NA 2022 90 [facility] DICLOFENAC NA 1% GEL,TOP APPLY 4 GRAMS TOPICALL Y TWICE A DAY TO AFFECTED AREA FOR PAIN. *USE DOSE CARD IN BOX TO MEASURE DOSE. MAX 32 GRAMS PER DAY. TOPICA L 10/24/2023 [id number] SUSU IRENEO REL 2022 200 [facility] DOCUSATE NA 50MG/SENNOS IDES 8.6MG TAB TAKE 1 TABLET BY MOUTH TWICE A DAY NEEDED FOR CONSTIPA TION ORAL ACTIVE 03/13/2024 [id number] 4 JJ,IN NA 2022 100 [facility] [place] [facility] DOCUSATE NA 50MG/SENNOS IDES 8.6MG TAB TAKE 1 TABLET BY MOUTH TWICE A DAY NEEDED FOR CONSTIPA TION ORAL DISCONT INUED 12/31/2022 [id number] PARVIZ,IN NA 2022 100 [place] [facility] DOCUSATE NA 50MG/SENNOS IDES 8.6MG TAB TAKE 1 TABLET BY MOUTH TWICE A DAY NEEDED FOR CONSTIPA TION ORAL 01/30/2023 [id number] 3 PARVIZ,IN NA 2022 100 [facility] [place] [facility] DOCUSATE NA 50MG/SENNOS IDES 8.6MG TAB TAKE 1 TABLET BY MOUTH TWICE A DAY NEEDED FOR CONSTIPA TION ORAL 10/18/2022 [id number] 3 ANITRA LU 2022 100 [facility] FINASTERIDE 5MG TAB TAKE ONE TABLET BY MOUTH EVERY DAY FOR PROSTATE ORAL ACTIVE 12/05/2023 [id number] 4 ALCIRA CROFTINE M 2023 30 [place] [facility] FINASTERIDE 5MG TAB TAKE ONE TABLET BY MOUTH EVERY DAY FOR PROSTATE ORAL DISCONT INUED 12/05/2023 [id number] ALCIRA CROFT THRINE M 2022 30 [place] [facility] HYDROCHLORO THIAZIDE 12.5MG TAB TAKE ONE TABLET BY MOUTH EVERY DAY FOR BLOOD PRESSURE ORAL ACTIVE 05/18/2024 [id number] 4 JJ,HI NA 2023 90 [place] [facility] HYDROCHLORO THIAZIDE 12.5MG TAB TAKE ONE TABLET BY MOUTH EVERY DAY FOR BLOOD PRESSURE ORAL DISCONT INUED 08/14/2023 [id number] PARVIZ,HI NA 2022 90 [place] [facility] LIDOCAINE 5% PATCH APPLY ONE PATCH FOR EACH KNEE TOPICALL Y EVERY DAY NEEDED FOR UP TO 12 HOURS FOR PAIN TOPICA L SUSPEND ED 07/17/2024 [id number] PARVIZ,HI NA 2023 180 [place] [facility] LIDOCAINE 5% PATCH APPLY 1 PATCH TOPICALL Y EVERY DAY NEEDED FOR UP TO 12 HOURS FOR PAIN TOPICA L DISCONT INUED (EDIT) 07/15/2024 [id number] 4 PARVIZ,HI NA 2023 60 [place] [facility] LIDOCAINE 5% PATCH APPLY 1 PATCH TOPICALL Y EVERY DAY NEEDED FOR UP TO 12 HOURS FOR PAIN TOPICA L DISCONT INUED (EDIT) 08/05/2023 [id number] 4 JJ,HI NA 2023 30 [place] [facility] LIDOCAINE 5% PATCH APPLY 1 PATCH TOPICALL Y EVERY DAY NEEDED FOR UP TO 12 HOURS FOR PAIN TOPICA L DISCONT INUED 07/09/2023 [id number] 4 PARVIZ,HI NA 2023 30 [place] [facility] LIDOCAINE 5% PATCH APPLY 1 PATCH TOPICALL Y EVERY DAY NEEDED FOR PAIN TOPICA L DISCONT INUED 06/03/2023 [id number] 3 JJ,HI NA 2022 30 [place] [facility] LIDOCAINE 5% PATCH APPLY 1 PATCH TOPICALL Y EVERY DAY NEEDED FOR PAIN TOPICA L DISCONT INUED 04/26/2023 [id number] 3 JJ,HI NA 2022 30 [place] [facility] LIDOCAINE 5% PATCH APPLY 1 PATCH TOPICALL Y EVERY DAY NEEDED FOR PAIN TOPICA L DISCONT INUED 03/05/2023 [id number] 3 JJ,HI NA 2022 30 [place] [facility] LIDOCAINE 5% PATCH APPLY 1 PATCH TOPICALL Y EVERY DAY NEEDED FOR PAIN TOPICA L DISCONT INUED 01/29/2023 [id number] 3 JJ,HI NA 2022 30 [place] [facility] LIDOCAINE 5% PATCH APPLY 1 PATCH TOPICALL Y EVERY DAY NEEDED FOR PAIN TOPICA L DISCONT INUED 01/10/2023 [id number] 3 JJ,HI NA 2022 30 [place] [facility] LIDOCAINE 5% PATCH APPLY 1 PATCH TOPICALL Y EVERY DAY NEEDED FOR PAIN TOPICA L DISCONT INUED 12/04/2022 [id number] 3 JJ,HI NA 2022 30 [place] [facility] LIDOCAINE 5% PATCH APPLY 1 PATCH TOPICALL Y EVERY DAY NEEDED FOR PAIN TOPICA L DISCONT INUED 10/30/2022 [id number] 3 JJ,HI NA 2022 30 [place] [facility] LIDOCAINE 5% PATCH APPLY 1 PATCH TOPICALL Y EVERY DAY NEEDED FOR PAIN TOPICA L 09/27/2022 [id number] PATRIC MAURICE 2022 30 [place] [facility] LISINOPRIL 40MG TAB TAKE ONE TABLET BY MOUTH EVERY DAY FOR HEART AND BLOOD PRESSURE ORAL ACTIVE 11/10/2024 [id number] 4 JJ,HI NA 2023 90 [place] [facility] LISINOPRIL 40MG TAB TAKE ONE TABLET BY MOUTH EVERY DAY FOR HEART AND BLOOD PRESSURE ORAL DISCONT INUED 12/12/2023 [id number] 4 MARIA VICTORIABGIG REL 2022 90 [place] [facility] LISINOPRIL 40MG TAB TAKE ONE TABLET BY MOUTH EVERY DAY FOR HEART AND BLOOD PRESSURE ORAL DISCONT INUED 10/18/2022 [id number] CHETANANDREBIGG REL 2021 90 [place] [facility] LORATADINE 10MG TAB TAKE ONE TABLET BY MOUTH EVERY DAY NEEDED FOR ALLERGIE S ORAL ACTIVE 10/20/2024 [id number] APOLLO JJ NA 2023 90 [place] [facility] METOPROLOL SUCCINATE 50MG TAB,SA TAKE ONE-HALF TABLET BY MOUTH EVERY DAY ORAL ACTIVE 12/11/2023 [id number] 4 TASH IDA 2022 45 [place] [facility] METOPROLOL SUCCINATE 50MG TAB,SA TAKE ONE-HALF TABLET BY MOUTH EVERY DAY ORAL DISCONT INUED 01/28/2023 [id number] TASH DIA 2021 45 [place] [facility] PSYLLIUM PWDR,ORAL TAKE 1 TABLESPO ONFUL BY MOUTH EVERY DAY FOR REGULAR BOWEL MOVEMENT S ORAL ACTIVE 03/13/2024 [id number] APOLLO JJ NA 2022 1170 [place] [facility] TAMSULOSIN HCL 0.4MG CAP TAKE ONE CAPSULE BY MOUTH EVERY EVENING FOR PROSTATE ORAL SUSPEND ED 04/27/2024 [id number] 4 APOLLO JJ NA 2022 90 [place] [facility] TAMSULOSIN HCL 0.4MG CAP TAKE ONE CAPSULE BY MOUTH EVERY EVENING FOR PROSTATE ORAL DISCONT INUED 05/10/2023 [id number] 3 APOLLO JJ NA 2022 30 [place] [facility] TAMSULOSIN HCL 0.4MG CAP TAKE ONE CAPSULE BY MOUTH EVERY EVENING FOR PROSTATE ORAL DISCONT INUED 04/09/2023 [id number] 3 JJ,IN NA 2022 30 [place] [facility] TAMSULOSIN HCL 0.4MG CAP TAKE ONE CAPSULE BY MOUTH EVERY EVENING FOR PROSTATE ORAL DISCONT INUED 03/04/2023 [id number] 3 JJ,IN NA 2022 30 [place] [facility] TAMSULOSIN HCL 0.4MG CAP TAKE ONE CAPSULE BY MOUTH EVERY EVENING FOR PROSTATE ORAL DISCONT INUED 02/25/2023 [id number] 3 JJ,IN NA 2022 30 [place] [facility] TAMSULOSIN HCL 0.4MG CAP TAKE ONE CAPSULE BY MOUTH EVERY EVENING FOR PROSTATE ORAL DISCONT INUED 02/21/2023 [id number] 3 JJ,IN NA 2022 30 [place] [facility] TAMSULOSIN HCL 0.4MG CAP TAKE ONE CAPSULE BY MOUTH EVERY EVENING FOR PROSTATE ORAL DISCONT INUED 01/10/[id number] [facility],IN NA 2022 30 [place] [facility] TAMSULOSIN HCL 0.4MG CAP TAKE ONE CAPSULE BY MOUTH EVERY EVENING FOR PROSTATE ORAL DISCONT INUED 12/11/[id number] [facility],IN NA 2022 30 [place] [facility] TAMSULOSIN HCL 0.4MG CAP TAKE ONE CAPSULE BY MOUTH EVERY EVENING FOR PROSTATE ORAL DISCONT INUED 12/04/[id number] [facility],IN NA 2022 30 [place] [facility] TAMSULOSIN HCL 0.4MG CAP TAKE ONE CAPSULE BY MOUTH EVERY EVENING FOR PROSTATE ORAL DISCONT INUED 10/30/2022 [id number] 3 JJ,IN NA 2022 30 [place] [facility] TAMSULOSIN HCL 0.4MG CAP TAKE ONE CAPSULE BY MOUTH EVERY EVENING FOR PROSTATE ORAL 09/27/2022 [id number] PATRIC MAURICE 2022 30 [place] [facility] VANICREAM APPLY THIN LAYER TOPICALL Y TWICE A DAY FOR DRY SKIN TOPICA L ACTIVE 03/13/2024 [id number] 3 JJ,HI NA 2022 454 [facility] Immunizations Combined list of available immunizations from the Department of Defense and Veterans Affairs facilities. Immunization Series Date Given Administered By Site Reaction Lot Number CVX Code Drug Recreation Establishment Manager Status Comments Source COVID-19 ([employer]), MRNA, LNP-S, PF, PAULINA-SUCROSE, 30 MCG/0.3 ML (AGES 12+ YEARS) 1 2022 MISTI SOLIMAN LEFT DELTO ID [id number] 309 complet ed [facility] INFLUENZA, HIGH-DOSE, QUADRIVALENT 2022 LEWIS CATES LEFT DELTO ID [id number] A 197 complet ed [facility] COVID-19 ([employer]), MRNA, LNP-S, BIVALENT BOOSTER, PF, 30 MCG/0.3 ML DOSE 1 2022 IAN HIGGINSA LEFT DELTO ID [id number] 300 complet ed [facility] INFLUENZA VACCINE, QUADRIVALENT, ADJUVANTED 2021 205 complet ed [facility] PNEUMOCOCCAL CONJUGATE PCV20, POLYSACCHARID E [id number] CONJUGATE, ADJUVANT, PF 2021 216 complet ed [facility] COVID-19 ([employer]), MRNA, LNP-S, PF, 30 MCG/0.3 ML DOSE 3 2020 208 complet ed PFR; [id number]; 1 [facility] INFLUENZA, INJECTABLE, QUADRIVALENT, PRESERVATIVE FREE 2020 150 complet ed [facility] COVID-19 ([employer]), MRNA, LNP-S, PF, 30 MCG/0.3 ML DOSE 2 2020 208 complet ed PFR; [id number]; 1 [facility] COVID-19 ([employer]), MRNA, LNP-S, PF, 30 MCG/0.3 ML DOSE 1 2020 208 complet ed PFR; [id number]; 1 [facility] TD (ADULT), 5 LF TETANUS TOXOID, PRESERVATIVE FREE, ADSORBED 2019 113 complet ed [facility] INFLUENZA, INJECTABLE, QUADRIVALENT, PRESERVATIVE FREE 2019 150 complet ed [facility] ZOSTER RECOMBINANT 2 2019 187 complet ed [facility] ZOSTER RECOMBINANT 1 2019 187 complet ed [facility] INFLUENZA, SEASONAL, INJECTABLE, PRESERVATIVE FREE 2018 140 complet ed [facility] INFLUENZA, SEASONAL, INJECTABLE, PRESERVATIVE FREE 2017 140 complet ed [facility] INFLUENZA, HIGH DOSE SEASONAL 2016 135 complet ed [facility] PNEUMOCOCCAL CONJUGATE PCV 13 2015 133 complet ed [place] lot [id number] exp 06/25 [facility] INFLUENZA, HIGH DOSE SEASONAL 2015 135 complet ed [facility] INFLUENZA, HIGH DOSE SEASONAL 2014 135 complet ed [facility] PNEUMOCOCCAL POLYSACCHARID E [id number] 2014 33 complet ed [employer]; [id number]; 6 [facility] INFLUENZA, UNSPECIFIED FORMULATION 2013 88 complet ed [facility] INFLUENZA, UNSPECIFIED FORMULATION 2012 88 complet ed [facility] TDAP 2012 115 complet ed [id number] [facility] INFLUENZA, UNSPECIFIED FORMULATION 2011 88 complet ed [facility] ZOSTER LIVE 2011 121 complet ed [employer] Lot#[id number] A Exp.Date- -06-28-12 [facility] INFLUENZA, UNSPECIFIED FORMULATION 2010 88 complet ed [facility] INFLUENZA, UNSPECIFIED FORMULATION 2009 88 complet ed [facility] INFLUENZA, UNSPECIFIED FORMULATION 2008 88 complet ed [facility] INFLUENZA, UNSPECIFIED FORMULATION 2008 88 complet ed [facility] PNEUMOCOCCAL, UNSPECIFIED FORMULATION 2007 109 complet ed [facility] INFLUENZA, UNSPECIFIED FORMULATION 2006 88 complet ed [facility] TD (ADULT), 2 LF TETANUS TOXOID, PRESERVATIVE FREE, ADSORBED 2005 09 complet ed [facility] INFLUENZA, UNSPECIFIED FORMULATION 2005 88 complet ed [facility] INFLUENZA, UNSPECIFIED FORMULATION 2004 88 complet ed [facility] TETANUS TOXOID, UNSPECIFIED FORMULATION 2004 NONE 112 complet ed [facility] TD(ADULT) UNSPECIFIED FORMULATION 2002 MARCO MORA 139 complet [facility] Results Combined list of recent chemistry, hematology and other laboratory results from Department of Defense and Veterans Affairs, ranging from 15 months to all on record, depending upon the facility. Order Name Results Value Reference Range Date Interpretation Specimen Comments Source BASIC METABOLI C PANEL+MG CREATININE [MASS/VOLU ME] IN SERUM OR PLASMA 1.2 mg/dL 0.7 - 1.2 07/10 Specimen Type: PLASMA No comment entered. Ordering Provider: DESTINI JJ Report Released Date/Time: Jun 13, 2022 01:54 PM Reporting Lab: [facility] [phone] Performing Lab: [facility] [address] [place] [facility] BASIC METABOLI C PANEL+MG UREA NITROGEN [MASS/VOLU ME] IN SERUM OR PLASMA 23 mg/dL 8 - 26 07/10 Specimen Type: PLASMA No comment entered. Ordering Provider: DESTINI JJ Report Released Date/Time: Jun 13, 2022 01:54 PM Reporting Lab: [facility] [address] Performing Lab: [facility] [address] [place] [facility] BASIC METABOLI C PANEL+MG GLUCOSE [MASS/VOLU ME] IN SERUM OR PLASMA 106 mg/dL 70 - 100 07/10 H Specimen Type: PLASMA No comment entered. Ordering Provider: DESTINI JJ Report Released Date/Time: Jun 13, 2022 01:54 PM Reporting Lab: [facility] [address] Performing Lab: [facility] [address] [place] [facility] BASIC METABOLI C PANEL+MG SODIUM [MOLES/VOL UME] IN SERUM OR PLASMA 140 mmol/L 136 - 145 07/10 Specimen Type: PLASMA No comment entered. Ordering Provider: DESTINI JJ Report Released Date/Time: Jun 13, 2022 01:54 PM Reporting Lab: [facility] [address] Performing Lab: [facility] [address] [place] [facility] BASIC METABOLI C PANEL+MG POTASSIUM [MOLES/VOL UME] IN SERUM OR PLASMA 4.2 mmol/L 3.5 - 5.1 07/10 Specimen Type: PLASMA No comment entered. Ordering Provider: DESTINI JJ Report Released Date/Time: Jun 13, 2022 01:54 PM Reporting Lab: [facility] [address] Performing Lab: [facility] [address] [place] [facility] BASIC METABOLI C PANEL+MG CHLORIDE [MOLES/VOL UME] IN SERUM OR PLASMA 109 mmol/L 98 - 107 07/10 H Specimen Type: PLASMA No comment entered. Ordering Provider: DESTINI JJ Report Released Date/Time: Jun 13, 2022 01:54 PM Reporting Lab: [facility] [address] Performing Lab: [facility] [address] [place] [facility] BASIC METABOLI C PANEL+MG CARBON DIOXIDE, TOTAL [MOLES/VOL UME] IN SERUM OR PLASMA 23 mmol/L 22 - 29 07/10 Specimen Type: PLASMA No comment entered. Ordering Provider: DESTINI JJ Report Released Date/Time: Jun 13, 2022 01:54 PM Reporting Lab: [facility] [address] Performing Lab: [facility] [address] [place] [facility] BASIC METABOLI C PANEL+MG CALCIUM [MASS/VOLU ME] IN SERUM OR PLASMA 9.2 mg/dL 8.4 - 10.2 07/10 Specimen Type: PLASMA No comment entered. Ordering Provider: DESTINI JJ Report Released Date/Time: Jun 13, 2022 01:54 PM Reporting Lab: [facility] [address] Performing Lab: [facility] [address] [place] [facility] BASIC METABOLI C PANEL+MG MAGNESIUM [MASS/VOLU ME] IN SERUM OR PLASMA 2.1 mg/dL 1.6 - 2.6 07/10 Specimen Type: PLASMA No comment entered. Ordering Provider: DESTINI JJ Report Released Date/Time: Jun 13, 2022 01:54 PM Reporting Lab: [facility] [address] Performing Lab: [facility] [address] [place] [facility] BASIC METABOLI C PANEL+MG ANION GAP IN SERUM OR PLASMA 8 mmol/L 5 - 15 07/10 Specimen Type: PLASMA No comment entered. Ordering Provider: DESTINI JJ Report Released Date/Time: Jun 13, 2022 01:54 PM Reporting Lab: [facility] [address] Performing Lab: [place] [phone] [place] [facility] BASIC METABOLI C PANEL+MG GLOMERULAR FILTRATION RATE/1.73 SQ M.PREDICTE D [VOLUME RATE/AREA] IN SERUM, PLASMA OR BLOOD BY CREATININE -BASED FORMULA (CKD-EPI 2020) 62 60 07/10 Specimen Type: PLASMA No comment entered. Ordering Provider: DESTINI JJ Report Released Date/Time: Jun 13, 2022 01:54 PM Reporting Lab: [facility] [address] Performing Lab: [facility] [address] [place] [facility] CREATINI NE(INCLU JOEY EGFR) CREATININE [MASS/VOLU ME] IN SERUM OR PLASMA 1.2 mg/dL 0.7 - 1.2 04/22 Specimen Type: PLASMA No comment entered. Ordering Provider: KATHERYN AZEVEDO Report Released Date/Time: Mar 31, 2023 09:22 AM Reporting Lab: [facility] [address] Performing Lab: [facility] [address] [place] [facility] CREATINI NE(INCLU JOEY EGFR) GLOMERULAR FILTRATION RATE/1.73 SQ M.PREDICTE D [VOLUME RATE/AREA] IN SERUM, PLASMA OR BLOOD BY CREATININE -BASED FORMULA (CKD-EPI 2020) 62 60 04/22 Specimen Type: PLASMA No comment entered. Ordering Provider: KATHERYN AZEVEDO Report Released Date/Time: Mar 31, 2023 09:22 AM Reporting Lab: [facility] [address] Performing Lab: [facility] [address] [place] [facility] ALT/SGPT ALANINE AMINOTRANS FERASE [ENZYMATIC ACTIVITY/V OLUME] IN SERUM OR PLASMA 20 U/L <55 - 55 04/22 Specimen Type: PLASMA No comment entered. Ordering Provider: KATHERYN AZEVEDO Report Released Date/Time: Mar 31, 2023 09:22 AM Reporting Lab: [facility] [address] Performing Lab: [facility] [address] [place] [facility] AST/SGOT ASPARTATE AMINOTRANS FERASE [ENZYMATIC ACTIVITY/V OLUME] IN SERUM OR PLASMA 16 U/L <34 - 34 04/22 Specimen Type: PLASMA No comment entered. Ordering Provider: KATHERYN AZEVEDO Report Released Date/Time: Mar 31, 2023 09:22 AM Reporting Lab: [facility] [id number] Performing Lab: [facility] [id number] [place] [facility] CBC LEUKOCYTES [#/VOLUME] IN BLOOD BY AUTOMATED COUNT 6.53 10*3/uL 4.0 - 11.0 04/22 Specimen Type: BLOOD No comment entered. Ordering Provider: KATHERYN AZEVEDO Report Released Date/Time: Mar 31, 2023 09:22 AM Reporting Lab: [facility] [id number] Performing Lab: [facility] [id number] [place] [facility] CBC ERYTHROCYT ES [#/VOLUME] IN BLOOD BY AUTOMATED COUNT 4.84 10*6/uL 4.6 - 6.2 04/22 Specimen Type: BLOOD No comment entered. Ordering Provider: KATHERYN AZEVEDO Report Released Date/Time: Mar 31, 2023 09:22 AM Reporting Lab: [facility] [address] Performing Lab: [facility] [address] [place] [facility] CBC HEMOGLOBIN [MASS/VOLU ME] IN BLOOD 15.3 g/dL 13.5 - 17.9 04/22 Specimen Type: BLOOD No comment entered. Ordering Provider: KATHERYN AZEVEDO Report Released Date/Time: Mar 31, 2023 09:22 AM Reporting Lab: [facility] [address] Performing Lab: [facility] [address] [place] [facility] CBC HEMATOCRIT [VOLUME FRACTION] OF BLOOD BY AUTOMATED COUNT 46.0 41 - 54 04/22 Specimen Type: BLOOD No comment entered. Ordering Provider: KATHERYN AZEVEDO Report Released Date/Time: Mar 31, 2023 09:22 AM Reporting Lab: [facility] [address] Performing Lab: [facility] [address] [place] [facility] CBC MCV [ENTITIC VOLUME] BY AUTOMATED COUNT 95.0 fL 80 - 100 04/22 Specimen Type: BLOOD No comment entered. Ordering Provider: KATHERYN AZEVEDO Report Released Date/Time: Mar 31, 2023 09:22 AM Reporting Lab: [facility] [address] Performing Lab: [facility] [address] [place] [facility] CBC MCH [ENTITIC MASS] BY AUTOMATED COUNT 31.6 pg 27 - 33 04/22 Specimen Type: BLOOD No comment entered. Ordering Provider: KATHERYN AZEVEDO Report Released Date/Time: Mar 31, 2023 09:22 AM Reporting Lab: [facility] [address] Performing Lab: [facility] [address] [place] [facility] CBC MCHC [MASS/VOLU ME] BY AUTOMATED COUNT 33.3 g/dL 32.0 - 37.5 04/22 Specimen Type: BLOOD No comment entered. Ordering Provider: KATHERYN AZEVEDO Report Released Date/Time: Mar 31, 2023 09:22 AM Reporting Lab: [facility] [address] Performing Lab: [facility] [address] [place] [facility] CBC PLATELETS [#/VOLUME] IN BLOOD BY AUTOMATED COUNT 166 10*3/uL 150 - 400 04/22 Specimen Type: BLOOD No comment entered. Ordering Provider: KATHERYN AZEVEDO Report Released Date/Time: Mar 31, 2023 09:22 AM Reporting Lab: [facility] [address] Performing Lab: [facility] [address] [place] [employer] IS [facility] CBC PLATELET MEAN VOLUME [ENTITIC VOLUME] IN BLOOD BY AUTOMATED COUNT 10.0 fL 7.4 - 10.4 04/22 Specimen Type: BLOOD No comment entered. Ordering Provider: KATHERYN AZEVEDO Report Released Date/Time: Mar 31, 2023 09:22 AM Reporting Lab: [facility] [address] Performing Lab: [facility] [address] [facility] CBC ERYTHROCYT E DISTRIBUTI ON WIDTH [RATIO] BY AUTOMATED COUNT 13.1 11.5 - 14.5 04/22 Specimen Type: BLOOD No comment entered. Ordering Provider: KATHERYN AZEVEDO Report Released Date/Time: Mar 31, 2023 09:22 AM Reporting Lab: [facility] [address] Performing Lab: [facility] [address] [facility] CBC PLATELETS RETICULATE D/100 PLATELETS IN BLOOD BY AUTOMATED COUNT 2.2 0 - 10 04/22 Specimen Type: BLOOD No comment entered. Ordering Provider: KATHERYN AZEVEDO Report Released Date/Time: Mar 31, 2023 09:22 AM Reporting Lab: [facility] [address] Performing Lab: [facility] [address] [facility] .OCCULT BLOOD(FI T) HEMOGLOBIN .GASTROINT ESTINAL.LO WER [PRESENCE] IN STOOL BY IMMUNOASSA Y Negative 01/26 Specimen Type: FECES No comment entered. Ordering Provider: LISA MARADIAGA Report Released Date/Time: Jan 26, 2023 08:24 AM Reporting Lab: [facility] [address] Performing Lab: [facility] [address] [facility] [address] [facility] CBC LEUKOCYTES [#/VOLUME] IN BLOOD BY AUTOMATED COUNT 5.91 10*3/uL 4.0 - 11.0 09/05 Specimen Type: BLOOD No comment entered. Ordering Provider: KATHERYN AZEVEDO Report Released Date/Time: Sep 02, 2022 08:25 AM Reporting Lab: [facility] [address] Performing Lab: [facility] [address] [place] [facility] CBC ERYTHROCYT ES [#/VOLUME] IN BLOOD BY AUTOMATED COUNT 4.55 10*6/uL 4.6 - 6.2 09/05 L Specimen Type: BLOOD No comment entered. Ordering Provider: KATHERYN AZEVEDO Report Released Date/Time: Sep 02, 2022 08:25 AM Reporting Lab: [facility] [address] Performing Lab: [facility] [address] [place] [facility] CBC HEMOGLOBIN [MASS/VOLU ME] IN BLOOD 13.9 g/dL 13.5 - 17.9 09/05 Specimen Type: BLOOD No comment entered. Ordering Provider: KATHERYN AZEVEDO Report Released Date/Time: Sep 02, 2022 08:25 AM Reporting Lab: [facility] [address] Performing Lab: [facility] [address] [place] [facility] CBC HEMATOCRIT [VOLUME FRACTION] OF BLOOD BY AUTOMATED COUNT 42.1 41 - 54 09/05 Specimen Type: BLOOD No comment entered. Ordering Provider: KATHERYN AZEVEDO Report Released Date/Time: Sep 02, 2022 08:25 AM Reporting Lab: [facility] [address] Performing Lab: [facility] [address] [place] [facility] CBC MCV [ENTITIC VOLUME] BY AUTOMATED COUNT 92.5 fL 80 - 100 09/05 Specimen Type: BLOOD No comment entered. Ordering Provider: KATHERYN AZEVEDO Report Released Date/Time: Sep 02, 2022 08:25 AM Reporting Lab: [facility] [address] Performing Lab: [facility] [address] [place] [facility] CBC MCH [ENTITIC MASS] BY AUTOMATED COUNT 30.5 pg 27 - 33 09/05 Specimen Type: BLOOD No comment entered. Ordering Provider: KATHERYN AZEVEDO Report Released Date/Time: Sep 02, 2022 08:25 AM Reporting Lab: [facility] [address] Performing Lab: [facility] [address] [place] [facility] CBC MCHC [MASS/VOLU ME] BY AUTOMATED COUNT 33.0 g/dL 32.0 - 37.5 09/05 Specimen Type: BLOOD No comment entered. Ordering Provider: KATHERYN AZEVEDO Report Released Date/Time: Sep 02, 2022 08:25 AM Reporting Lab: [facility] [address] Performing Lab: [facility] [address] [place] [facility] CBC PLATELETS [#/VOLUME] IN BLOOD BY AUTOMATED COUNT 256 10*3/uL 150 - 400 09/05 Specimen Type: BLOOD No comment entered. Ordering Provider: KATHERYN AZEVEDO Report Released Date/Time: Sep 02, 2022 08:25 AM Reporting Lab: [facility] [address] Performing Lab: [facility] [address] [place] [facility] CBC PLATELET MEAN VOLUME [ENTITIC VOLUME] IN BLOOD BY AUTOMATED COUNT 9.2 fL 7.4 - 10.4 09/05 Specimen Type: BLOOD No comment entered. Ordering Provider: KATHERYN AZEVEDO Report Released Date/Time: Sep 02, 2022 08:25 AM Reporting Lab: [facility] [address] Performing Lab: [facility] [address] [place] [facility] CBC ERYTHROCYT E DISTRIBUTI ON WIDTH [RATIO] BY AUTOMATED COUNT 13.2 11.5 - 14.5 09/05 Specimen Type: BLOOD No comment entered. Ordering Provider: KATHERYN AZEVEDO Report Released Date/Time: Sep 02, 2022 08:25 AM Reporting Lab: [facility] [address] Performing Lab: [facility] [address] [place] [facility] BASIC METABOLI C PANEL+MG CREATININE [MASS/VOLU ME] IN SERUM OR PLASMA 1.2 mg/dL 0.7 - 1.2 08/28 Specimen Type: PLASMA No comment entered. Ordering Provider: ANITRA MCCLAIN Report Released Date/Time: Aug 28, 2022 12:41 PM Reporting Lab: [facility] [address] Performing Lab: [facility] [address] [place] [facility] BASIC METABOLI C PANEL+MG UREA NITROGEN [MASS/VOLU ME] IN SERUM OR PLASMA 18 mg/dL 8 - 26 08/28 Specimen Type: PLASMA No comment entered. Ordering Provider: ANITRA MCCLAIN Report Released Date/Time: Aug 28, 2022 12:41 PM Reporting Lab: [facility] [address] Performing Lab: [facility] [address] [place] [facility] BASIC METABOLI C PANEL+MG GLUCOSE [MASS/VOLU ME] IN SERUM OR PLASMA 150 mg/dL 70 - 100 08/28 H Specimen Type: PLASMA No comment entered. Ordering Provider: ANITRA MCCLAIN Report Released Date/Time: Aug 28, 2022 12:41 PM Reporting Lab: [facility] [address] Performing Lab: [facility] [address] [place] [facility] BASIC METABOLI C PANEL+MG SODIUM [MOLES/VOL UME] IN SERUM OR PLASMA 137 mmol/L 136 - 145 08/28 Specimen Type: PLASMA No comment entered. Ordering Provider: ANITRA MCCLAIN Report Released Date/Time: Aug 28, 2022 12:41 PM Reporting Lab: [facility] [address] Performing Lab: [facility] [address] [place] [facility] BASIC METABOLI C PANEL+MG POTASSIUM [MOLES/VOL UME] IN SERUM OR PLASMA 4.2 mmol/L 3.5 - 5.1 08/28 Specimen Type: PLASMA No comment entered. Ordering Provider: ANITRA MCCLAIN Report Released Date/Time: Aug 28, 2022 12:41 PM Reporting Lab: [facility] [address] Performing Lab: [facility] [address] [place] [facility] BASIC METABOLI C PANEL+MG CHLORIDE [MOLES/VOL UME] IN SERUM OR PLASMA 107 mmol/L 98 - 107 08/28 Specimen Type: PLASMA No comment entered. Ordering Provider: ANITRA MCCLAIN Report Released Date/Time: Aug 28, 2022 12:41 PM Reporting Lab: [facility] [address] Performing Lab: [facility] [address] [place] [facility] BASIC METABOLI C PANEL+MG CARBON DIOXIDE, TOTAL [MOLES/VOL UME] IN SERUM OR PLASMA 22 mmol/L 22 - 29 08/28 Specimen Type: PLASMA No comment entered. Ordering Provider: ANITRA MCCLAIN Report Released Date/Time: Aug 28, 2022 12:41 PM Reporting Lab: [facility] [address] Performing Lab: [facility] [address] [place] [facility] BASIC METABOLI C PANEL+MG CALCIUM [MASS/VOLU ME] IN SERUM OR PLASMA 8.9 mg/dL 8.4 - 10.2 08/28 Specimen Type: PLASMA No comment entered. Ordering Provider: ANITRA MCCLAIN Report Released Date/Time: Aug 28, 2022 12:41 PM Reporting Lab: [facility] [address] Performing Lab: [facility] [address] [place] [facility] BASIC METABOLI C PANEL+MG MAGNESIUM [MASS/VOLU ME] IN SERUM OR PLASMA 1.9 mg/dL 1.6 - 2.6 08/28 Specimen Type: PLASMA No comment entered. Ordering Provider: ANITRA MCCLAIN Report Released Date/Time: Aug 28, 2022 12:41 PM Reporting Lab: [facility] [address] Performing Lab: [facility] [address] [place] [facility] BASIC METABOLI C PANEL+MG ANION GAP IN SERUM OR PLASMA 8 mmol/L 5 - 15 08/28 Specimen Type: PLASMA No comment entered. Ordering Provider: ANITRA MCCLAIN Report Released Date/Time: Aug 28, 2022 12:41 PM Reporting Lab: [facility] [address] Performing Lab: [facility] [address] [place] [facility] BASIC METABOLI C PANEL+MG GLOMERULAR FILTRATION RATE/1.73 SQ M.PREDICTE D [VOLUME RATE/AREA] IN SERUM, PLASMA OR BLOOD BY CREATININE -BASED FORMULA (CKD-EPI) 62 60 08/28 Specimen Type: PLASMA No comment entered. Ordering Provider: ANITRA MCCLAIN Report Released Date/Time: Aug 28, 2022 12:41 PM Reporting Lab: [facility] [address] Performing Lab: [facility] [address] [place] [facility] CBC & DIFF LEUKOCYTES [#/VOLUME] IN BLOOD BY AUTOMATED COUNT 5.92 10*3/uL 4.0 - 11.0 08/28 Specimen Type: BLOOD Comment: Automated Differentia l Performed Ordering Provider: ANITRA MCCLAIN Report Released Date/Time: Aug 28, 2022 12:41 PM Reporting Lab: [facility] [address] Performing Lab: [facility] [address] [place] [facility] CBC & DIFF ERYTHROCYT ES [#/VOLUME] IN BLOOD BY AUTOMATED COUNT 4.14 10*6/uL 4.6 - 6.2 08/28 L Specimen Type: BLOOD Comment: Automated Differentia l Performed Ordering Provider: ANITRA MCCLAIN Report Released Date/Time: Aug 28, 2022 12:41 PM Reporting Lab: [facility] [address] Performing Lab: [facility] [address] [place] [facility] CBC & DIFF HEMOGLOBIN [MASS/VOLU ME] IN BLOOD 12.6 g/dL 13.5 - 17.9 08/28 L Specimen Type: BLOOD Comment: Automated Differentia l Performed Ordering Provider: ANITRA MCCLAIN Report Released Date/Time: Aug 28, 2022 12:41 PM Reporting Lab: [facility] [address] Performing Lab: [facility] [address] [place] [facility] CBC & DIFF HEMATOCRIT [VOLUME FRACTION] OF BLOOD BY AUTOMATED COUNT 38.5 41 - 54 08/28 L Specimen Type: BLOOD Comment: Automated Differentia l Performed Ordering Provider: ANITRA MCCLAIN Report Released Date/Time: Aug 28, 2022 12:41 PM Reporting Lab: [facility] [address] Performing Lab: [facility] [address] [place] [facility] CBC & DIFF MCV [ENTITIC VOLUME] BY AUTOMATED COUNT 93.0 fL 80 - 100 08/28 Specimen Type: BLOOD Comment: Automated Differentia l Performed Ordering Provider: ANITRA MCCLAIN Report Released Date/Time: Aug 28, 2022 12:41 PM Reporting Lab: [facility] [address] Performing Lab: [facility] [address] [place] [facility] CBC & DIFF MCH [ENTITIC MASS] BY AUTOMATED COUNT 30.4 pg 27 - 33 08/28 Specimen Type: BLOOD Comment: Automated Differentia l Performed Ordering Provider: ANITRA MCCLAIN Report Released Date/Time: Aug 28, 2022 12:41 PM Reporting Lab: [facility] [address] Performing Lab: [facility] [address] [place] [facility] CBC & DIFF MCHC [MASS/VOLU ME] BY AUTOMATED COUNT 32.7 g/dL 32.0 - 37.5 08/28 Specimen Type: BLOOD Comment: Automated Differentia l Performed Ordering Provider: ANITRA MCCLAIN Report Released Date/Time: Aug 28, 2022 12:41 PM Reporting Lab: [facility] [address] Performing Lab: [facility] [address] [place] [facility] CBC & DIFF PLATELETS [#/VOLUME] IN BLOOD BY AUTOMATED COUNT 168 10*3/uL 150 - 400 08/28 Specimen Type: BLOOD Comment: Automated Differentia l Performed Ordering Provider: ANITRA MCCLAIN Report Released Date/Time: Aug 28, 2022 12:41 PM Reporting Lab: [facility] [address] Performing Lab: [facility] [address] [place] [facility] CBC & DIFF PLATELET MEAN VOLUME [ENTITIC VOLUME] IN BLOOD BY AUTOMATED COUNT 9.6 fL 7.4 - 10.4 08/28 Specimen Type: BLOOD Comment: Automated Differentia l Performed Ordering Provider: ANITRA MCCLAIN Report Released Date/Time: Aug 28, 2022 12:41 PM Reporting Lab: [facility] [address] Performing Lab: [facility] [address] [place] [facility] CBC & DIFF NEUTROPHIL S/100 LEUKOCYTES IN BLOOD BY MANUAL COUNT 66.2 08/28 Specimen Type: BLOOD Comment: Automated Differentia l Performed Ordering Provider: ANITRA MCCLAIN Report Released Date/Time: Aug 28, 2022 12:41 PM Reporting Lab: [facility] [address] Performing Lab: [facility] [address] [place] [facility] CBC & DIFF LYMPHOCYTE S/100 LEUKOCYTES IN BLOOD BY MANUAL COUNT 19.3 08/28 Specimen Type: BLOOD Comment: Automated Differentia l Performed Ordering Provider: ANITRA MCCLAIN Report Released Date/Time: Aug 28, 2022 12:41 PM Reporting Lab: [facility] [address] Performing Lab: [facility] [address] [place] [facility] CBC & DIFF MONOCYTES/ 100 LEUKOCYTES IN BLOOD BY AUTOMATED COUNT 9.6 08/28 Specimen Type: BLOOD Comment: Automated Differentia l Performed Ordering Provider: ANITRA MCCLAIN Report Released Date/Time: Aug 28, 2022 12:41 PM Reporting Lab: [facility] [address] Performing Lab: [facility] [address] [place] [facility] CBC & DIFF EOSINOPHIL S/100 LEUKOCYTES IN BLOOD BY AUTOMATED COUNT 3.4 08/28 Specimen Type: BLOOD Comment: Automated Differentia l Performed Ordering Provider: ANITRA MCCLAIN Report Released Date/Time: Aug 28, 2022 12:41 PM Reporting Lab: [facility] [address] Performing Lab: [facility] [address] [place] [facility] CBC & DIFF BASOPHILS/ 100 LEUKOCYTES IN BLOOD BY MANUAL COUNT 1.2 08/28 Specimen Type: BLOOD Comment: Automated Differentia l Performed Ordering Provider: ANITRA MCCLAIN Report Released Date/Time: Aug 28, 2022 12:41 PM Reporting Lab: [facility] [address] Performing Lab: [facility] [address] [place] [facility] CBC & DIFF ERYTHROCYT E DISTRIBUTI ON WIDTH [RATIO] BY AUTOMATED COUNT 13.0 11.5 - 14.5 08/28 Specimen Type: BLOOD Comment: Automated Differentia l Performed Ordering Provider: ANITRA MCCLAIN Report Released Date/Time: Aug 28, 2022 12:41 PM Reporting Lab: [facility] [address] Performing Lab: [facility] [address] [place] [facility] CBC & DIFF LYMPHOCYTE S [#/VOLUME] IN BLOOD BY AUTOMATED COUNT 1.14 10*3/uL 1.0 - 4.0 08/28 Specimen Type: BLOOD Comment: Automated Differentia l Performed Ordering Provider: ANITRA MCCLAIN Report Released Date/Time: Aug 28, 2022 12:41 PM Reporting Lab: [facility] [address] Performing Lab: [facility] [address] [place] [facility] CBC & DIFF MONOCYTES [#/VOLUME] IN BLOOD BY AUTOMATED COUNT 0.57 10*3/uL 0.1 - 1.0 08/28 Specimen Type: BLOOD Comment: Automated Differentia l Performed Ordering Provider: ANITRA MCCLAIN Report Released Date/Time: Aug 28, 2022 12:41 PM Reporting Lab: [facility] [address] Performing Lab: [facility] [address] [place] [facility] CBC & DIFF NEUTROPHIL S [#/VOLUME] IN BLOOD BY AUTOMATED COUNT 3.92 10*3/uL 2.0 - 7.7 08/28 Specimen Type: BLOOD Comment: Automated Differentia l Performed Ordering Provider: ANITRA MCCLAIN Report Released Date/Time: Aug 28, 2022 12:41 PM Reporting Lab: [facility] [address] Performing Lab: [facility] [address] [place] [facility] CBC & DIFF EOSINOPHIL S [#/VOLUME] IN BLOOD BY AUTOMATED COUNT 0.20 10*3/uL 0 - 0.5 08/28 Specimen Type: BLOOD Comment: Automated Differentia l Performed Ordering Provider: ANITRA MCCLAIN Report Released Date/Time: Aug 28, 2022 12:41 PM Reporting Lab: [facility] [address] Performing Lab: [facility] [address] [place] [facility] CBC & DIFF BASOPHILS [#/VOLUME] IN BLOOD BY AUTOMATED COUNT 0.07 10*3/uL 0 - 0.2 08/28 Specimen Type: BLOOD Comment: Automated Differentia l Performed Ordering Provider: ANITRA MCCLAIN Report Released Date/Time: Aug 28, 2022 12:41 PM Reporting Lab: [facility] [address] Performing Lab: [facility] [address] [place] [facility] CBC & DIFF IG(META,MY LUISA,PRO) 0.3 08/28 Specimen Type: BLOOD Comment: Automated Differentia l Performed Ordering Provider: ANITRA MCCLAIN Report Released Date/Time: Aug 28, 2022 12:41 PM Reporting Lab: [facility] [address] Performing Lab: [facility] [address] [place] [facility] CBC & DIFF IMMATURE GRANULOCYT ES [PRESENCE] IN BLOOD BY AUTOMATED COUNT 0.02 10*3/uL 0 - 0.1 08/28 Specimen Type: BLOOD Comment: Automated Differentia l Performed Ordering Provider: ANITRA MCCLAIN Report Released Date/Time: Aug 28, 2022 12:41 PM Reporting Lab: [facility] [address] Performing Lab: [facility] [address] [place] [facility] URINALYS IS COLOR OF URINE COLORLES S 08/28 Specimen Type: URINE No comment entered. Ordering Provider: ANITRA MCCLAIN Report Released Date/Time: Aug 28, 2022 12:41 PM Reporting Lab: [facility] [address] Performing Lab: [place] [phone] [place] [facility] URINALYS IS SPECIFIC GRAVITY OF URINE 1.004 1.003 - 1.035 08/28 Specimen Type: URINE No comment entered. Ordering Provider: ANITRA MCCLAIN Report Released Date/Time: Aug 28, 2022 12:41 PM Reporting Lab: [facility] [address] Performing Lab: [facility] [address] [place] [facility] URINALYS IS BILIRUBIN. TOTAL [PRESENCE] IN URINE BY TEST STRIP NEGATIVE 08/28 Specimen Type: URINE No comment entered. Ordering Provider: ANITRA MCCLAIN Report Released Date/Time: Aug 28, 2022 12:41 PM Reporting Lab: [facility] [address] Performing Lab: [facility] [address] [place] [facility] URINALYS IS KETONES [MASS/VOLU ME] IN URINE BY TEST STRIP NEGATIVE 08/28 Specimen Type: URINE No comment entered. Ordering Provider: ANITRA MCCLAIN Report Released Date/Time: Aug 28, 2022 12:41 PM Reporting Lab: [facility] [phone] Performing Lab: [facility] [phone] [place] [facility] URINALYS IS GLUCOSE [MASS/VOLU ME] IN URINE BY TEST STRIP NEGATIVE mg/dL <30 - 30 08/28 Specimen Type: URINE No comment entered. Ordering Provider: ANITRA MCCLAIN Report Released Date/Time: Aug 28, 2022 12:41 PM Reporting Lab: [facility] [phone] Performing Lab: [facility] [phone] [place] [facility] URINALYS IS PROTEIN [MASS/VOLU ME] IN URINE BY TEST STRIP 50 mg/dL <20 - 20 08/28 Specimen Type: URINE No comment entered. Ordering Provider: ANITRA MCCLAIN Report Released Date/Time: Aug 28, 2022 12:41 PM Reporting Lab: [facility] [phone] Performing Lab: [facility] [address] [place] [facility] URINALYS IS PH OF URINE BY TEST STRIP 6.0 5.0 - 8.0 08/28 Specimen Type: URINE No comment entered. Ordering Provider: ANITRA MCCLAIN Report Released Date/Time: Aug 28, 2022 12:41 PM Reporting Lab: [facility] [phone] Performing Lab: [facility] [phone] [place] [facility] URINALYS IS LEUKOCYTES [#/AREA] IN URINE SEDIMENT BY MICROSCOPY HIGH POWER FIELD 7 /[HPF] 0 - 7 08/28 Specimen Type: URINE No comment entered. Ordering Provider: ANITRA MCCLAIN Report Released Date/Time: Aug 28, 2022 12:41 PM Reporting Lab: [facility] [phone] Performing Lab: [facility] [phone] [place] [facility] HEALTHCARE URINALYS IS BACTERIA [PRESENCE] IN URINE SEDIMENT BY LIGHT MICROSCOPY FEW 08/28 Specimen Type: URINE No comment entered. Ordering Provider: ANITRA MCCLAIN Report Released Date/Time: Aug 28, 2022 12:41 PM Reporting Lab: [facility] [address] Performing Lab: [facility] [address] [place] [facility] URINALYS IS ERYTHROCYT ES [#/AREA] IN URINE SEDIMENT BY MICROSCOPY HIGH POWER FIELD 10 /[HPF] 0 - 3 08/28 H Specimen Type: URINE No comment entered. Ordering Provider: ANITRA MCCLAIN Report Released Date/Time: Aug 28, 2022 12:41 PM Reporting Lab: [facility] [address] Performing Lab: [facility] [address] [place] [facility] URINALYS IS APPEARANCE OF URINE TURBID 08/28 Specimen Type: URINE No comment entered. Ordering Provider: ANITRA MCCLAIN Report Released Date/Time: Aug 28, 2022 12:41 PM Reporting Lab: [facility] [address] Performing Lab: [facility] [address] [place] [facility] URINALYS IS EPITHELIAL CELLS.SQUA MOUS [#/AREA] IN URINE SEDIMENT BY MICROSCOPY HIGH POWER FIELD <1/[HPF] 08/28 Specimen Type: URINE No comment entered. Ordering Provider: ANITRA MCCLAIN Report Released Date/Time: Aug 28, 2022 12:41 PM Reporting Lab: [facility] [address] Performing Lab: [facility] [address] [place] [facility] URINALYS IS HEMOGLOBIN [PRESENCE] IN URINE BY TEST STRIP 3+ 08/28 Specimen Type: URINE No comment entered. Ordering Provider: ANITRA MCCLAIN Report Released Date/Time: Aug 28, 2022 12:41 PM Reporting Lab: [facility] [address] Performing Lab: [facility] [address] [place] [facility] URINALYS IS NITRITE [PRESENCE] IN URINE BY TEST STRIP NEGATIVE 08/28 Specimen Type: URINE No comment entered. Ordering Provider: ANITRA MCCLAIN Report Released Date/Time: Aug 28, 2022 12:41 PM Reporting Lab: [facility] [address] Performing Lab: [facility] [address] [place] [facility] URINALYS IS LEUKOCYTE ESTERASE [PRESENCE] IN URINE BY TEST STRIP 75 08/28 Specimen Type: URINE No comment entered. Ordering Provider: ANTIRA MCCLAIN Report Released Date/Time: Aug 28, 2022 12:41 PM Reporting Lab: [facility] [address] Performing Lab: [facility] [address] [facility] Vital Signs Combined list of inpatient and outpatient Vital Signs from Department of Defense and Veterans Affairs, ranging from 12 months to all on record, depending upon the facility. Vital Sign Value Date Comments Source Encounters Combined list of: 1) Encounters from Department of Veterans Affairs facilities [facility] 2) Encounters from the Department of Defense facilities going back up to 280 months. Location Location Details Encounter Type Encounter Number Reason For Visit Attending Provider ADM Date DC Date Status Disposition Source [facility] Outpatient Encounter [id number] 05/22 [facility] Outpatient Encounter [id number] SA RA Belen HIGGINS 06/10 [facility] Outpatient Encounter [id number] 06/13 [facility] ADM SARSCV2 BVL 30MCG/.3ML B [id number] Diagnos is: ICD-10- CM Z23 Encount er for immuniz ation<b r/> NO HIGGINS 06/13 [facility] OFFICE O/P EST HI 40-54 MIN [id number] Diagnos is: ICD-10- CM 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
JENNIFER MCKEON 06/13 [facility] Outpatient Encounter [id number] 06/18 [facility] Outpatient Encounter [id number] Diagnos is: ICD-10- CM 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
Patricio DIA 06/19 [facility] Outpatient Encounter [id number] Diagnos is: ICD-10- CM E86.0 Dehydra tion
MAL JJ A 07/01 [place] [facility] [place] [facility] Outpatient Encounter [id number] 07/17 [place] [facility] [place] [facility] Outpatient Encounter [id number] 07/17 [place] [facility] [place] [facility] REMOVE IMPACTED EAR WAX UNI [id number] Diagnos is: ICD-10- CM H90.3 Sensori neural hearing loss, bilater al
NO GALVIN A 07/21 [facility] [place] [facility] Outpatient Encounter [id number] Diagnos is: ICD-10- CM H53.9 Unspeci fied visual disturb ance
MAL JJ A 08/05 [place] [facility] [place] [facility] Outpatient Encounter [id number] 08/07 [facility] [place] [facility] Outpatient Encounter [id number] AMERICA PACKER 08/12 [place] [facility] [place] [facility] Outpatient Encounter [id number] 08/12 [facility] [place] [facility] Outpatient Encounter [id number] 08/18 [facility] [place] [facility] Outpatient Encounter [id number] SYSTEM,CIS -ARK 08/19 [facility] [place] [facility] Outpatient Encounter [id number] SYSTEM,CIS -ARK 08/20 [facility] [place] [facility] OFF/OP CONSLTJ NEW/EST HI 55 [id number] Diagnos is: ICD-10- CM I65.21 Occlusi on and stenosi s of right carotid artery< br/> ANITRA MCCLAIN 08/20 [facility] [place] [facility] Inpatient Encounter [id number] Admit Reason: R CAROTID ARTERY STENOSI S
DUSTY,Paty AUL KHALIF 08/20 [facility] [place] [facility] RECHANNELI NG OF ARTERY [id number] Admit Reason: R CAROTID ARTERY STENOSI S
PILI MAURICE A 08/20 [facility] [place] [facility] Inpatient Encounter [id number] 08/20 [facility] [place] [facility] Inpatient Encounter [id number] OANH DAVIES MER 08/20 [facility] [place] [facility] Inpatient Encounter [id number] VAUGHN JOYA 08/20 [facility] [place] [facility] Inpatient Encounter [id number] OANH DAVIES MER 08/20 [facility] [place] [facility] Inpatient Encounter [id number] Flores ISLAS 08/20 [facility] [place] [facility] Inpatient Encounter [id number] ROSA MARIA DEVLIN -SANKET 08/21 [facility] [place] [facility] Inpatient Encounter [id number] NOEMI SALCEDO 08/21 [facility] [place] [facility] Inpatient Encounter [id number] OANH DAVIES MER 08/21 [facility] [place] [facility] Inpatient Encounter [id number] Paty MONTANO AUL KHALIF 08/21 [facility] [place] [facility] Inpatient Encounter [id number] TERENCERODERICK DayROBIN 08/21 [facility] [place] [facility] Inpatient Encounter [id number] 08/22 [place] [facility] [place] [facility] Inpatient Encounter [id number] CLAUS,CIS -ARK 08/22 [facility] [place] [facility] Inpatient Encounter [id number] TERRI DENNEY 08/22 [facility] [place] [facility] OFFICE O/P EST MOD 30-39 MIN [id number] Diagnos is: ICD-10- CM I65.29 Occlusi on and stenosi s of 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 carotid artery< br/> TRILLOS,LI DA JANETH 08/22 [facility] [place] [facility] INSERTION CATHETER ARTERY [id number] Diagnos is: ICD-10- CM I65.21 Occlusi on and stenosi s of right carotid artery< br/> TRILLOS,LI DA JANETH 08/22 [facility] [place] [facility] Inpatient Encounter [id number] Diagnos is: ICD-10- CM I65.21 Occlusi on and stenosi s of right carotid artery< br/> ORECCHIA,P AUL KHALIF 08/22 [facility] [place] [facility] Inpatient Encounter [id number] AMERICA AWAD 08/22 [facility] [place] [facility] Inpatient Encounter [id number] MEGAN GRIGSBY 08/22 [facility] [place] [facility] Inpatient Encounter [id number] SYSTEM,CIS -ARK 08/22 [facility] [place] [facility] Inpatient Encounter [id number] SYSTEM,CIS -ARK 08/22 [place] [facility] [place] [facility] Inpatient Encounter [id number] JOSTIN DWYER 08/22 [facility] [place] [facility] Inpatient Encounter [id number] YANELI CARABALLO 08/22 [facility] [place] [facility] Inpatient Encounter [id number] SYSTEM,CIS -ARK 08/23 [facility] [place] [facility] Inpatient Encounter [id number] TERRI DENNEY 08/23 [facility] [place] [facility] POSTOP FOLLOW-UP VISIT [id number] Diagnos is: ICD-10- CM Z48.89 Encount er for other specifi ed surgica l afterca re
Dana EVANS II 08/23 [facility] [place] [facility] Inpatient Encounter [id number] JORDI SANCHEZ 08/23 [facility] [place] [facility] Inpatient Encounter [id number] Alessandro MONTANO 08/23 [facility] [place] [facility] Inpatient Encounter [id number] SYSTEM,CIS -ARK 08/24 [facility] [place] [facility] Inpatient Encounter [id number] BANDAR JURADO 08/24 [place] [facility] [place] [facility] Inpatient Encounter [id number] DANIEL JORDI H 08/24 [place] [facility] [place] [facility] Inpatient Encounter [id number] NICOLETTEDanaAlessandro A 08/24 [place] [facility] [place] [facility] Inpatient Encounter [id number] SYSTEM,CIS -ARK 08/25 [place] [facility] [place] [facility] Inpatient Encounter [id number] RHIANNONBANDAR JOSE M 08/25 [place] [facility] [place] [facility] Inpatient Encounter [id number] PATRICIA BLUM 08/25 [place] [facility] [place] [facility] Inpatient Encounter [id number] LINO CHAVIRA M 08/25 [place] [facility] [place] [facility] Inpatient Encounter [id number] 08/25 [place] [facility] [place] [facility] Inpatient Encounter [id number] 08/26 [place] [facility] [place] [facility] Inpatient Encounter [id number] SYSTEM,CIS -ARK 08/26 [place] [facility] [place] [facility] Inpatient Encounter [id number] SURINDER MOISE I 08/26 [place] [facility] [place] [facility] Inpatient Encounter [id number] KAYLIN DORADO 08/26 [place] [facility] [place] [facility] Inpatient Encounter [id number] MICHELLE BRENNER Y 08/26 [place] [facility] [place] [facility] Inpatient Encounter [id number] SYSTEM,CIS -ARK 08/27 [place] [facility] [place] [facility] Inpatient Encounter [id number] CURTIS MOREIRA A 08/27 [place] [facility] [place] [facility] Inpatient Encounter [id number] KAYLIN DORADO MARIANELA L 08/27 [place] [facility] [place] [facility] Inpatient Encounter [id number] Diagnos is: ICD-10- CM I10 Essenti al (primar y) hyperte nsion<b r/> MAL JJ A 08/27 [place] [facility] [place] [facility] Inpatient Encounter [id number] SYSTEM,CIS -ARK 08/28 [place] [facility] [place] [facility] Inpatient Encounter [id number] VERENICE HU Y 08/28 [place] [facility] [place] [facility] Inpatient Encounter [id number] 08/28 [place] [facility] [place] [facility] Inpatient Encounter [id number] 08/28 [place] [facility] [place] [facility] Inpatient Encounter [id number] 08/29 [place] [facility] [place] [facility] Inpatient Encounter [id number] SYSTEM,CIS -ARK 08/29 [place] [facility] [place] [facility] Inpatient Encounter [id number] 08/29 [place] [facility] [place] [facility] Inpatient Encounter [id number] 08/29 [place] [facility] PT EVAL LOW COMPLEX 20 MIN [id number] Diagnos is: ICD-10- CM R26.89 Other abnorma lities of gait and mobilit y
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
TAWNY PARR 09/02 [facility] Outpatient Encounter [id number] 09/05 [facility] US URINE CAPACITY MEASURE [id number] Diagnos is: ICD-10- CM R33.9 Retenti on of urine, 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
JERAD SINGH 09/05 [facility] [place] [facility] OFF/OP EST MAY X REQ PHY/QHP [id number] JERAD SINGH 09/05 [facility] [place] [facility] Outpatient Encounter [id number] 09/22 [facility] [place] [facility] HEARING AID CHECK BOTH EARS [id number] Diagnos is: ICD-10- CM H93.13 Tinnitu s, bilater al
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
NORRI,TRAC Y L 10/09 [facility] [place] [facility] Outpatient Encounter [id number] Diagnos is: ICD-10- CM I65.21 Occlusi on and stenosi s of right carotid artery< br/> Paty MONTANO 11/04 [facility] [place] [facility] Outpatient Encounter [id number] 11/06 [facility] [place] [facility] Outpatient Encounter [id number] 11/07 [facility] [place] [facility] Outpatient Encounter [id number] ELEN MORRIS 11/07 [facility] [place] [facility] Outpatient Encounter [id number] 12/02 [facility] OFFICE O/P EST MOD 30-39 MIN [id number] [id number] Diagnos is: ICD-10- CM R31.9 Hematur ia, 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
AAMIR HUYNH 12/04 [facility] Outpatient Encounter [id number] 12/04 [facility] Outpatient [facility]counter [id number] 12/04 [facility] Outpatient Encounter [id number] ELEN MORRIS 12/05 [facility] Outpatient Encounter [id number] KAREN BROWN 12/05 [facility] HEARING AID CHECK BOTH EARS [id number] Diagnos is: ICD-10- CM Z46.1 Encount er for fitting and adjustm ent of hearing aid<br/ > NO GALVIN 12/17 [facility] Outpatient Encounter [id number] KARLA HALE 12/23 [facility] Outpatient Encounter [id number] 12/23 [facility] ELECTROCAR DIOGRAM COMPLETE [id number] Diagnos is: ICD-10- CM Z13.6 Encount er for screeni ng for cardiov ascular disorde rs
Liseth IYER 01/01 [facility] TTE W/DOPPLER COMPLETE [id number] Diagnos is: ICD-10- CM 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
Kaye VILLEGAS 01/01 [facility] OFFICE O/P EST MOD 30-39 MIN [id number] Diagnos is: ICD-10- CM 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
ENDY HERZOG R Millie 01/20 [facility] Outpatient Encounter [id number] 01/26 [facility] Outpatient Encounter [id number] 02/04 [facility] Outpatient Encounter [id number] 03/13 [facility] OFFICE O/P EST MOD 30-39 MIN [id number] Diagnos is: ICD-10- CM Z98.890 Other specifi ed postpro cedural states< br/> MAL JJ 03/13 [facility] [place]UNIZATI [place] ADMIN [id number] Diagnos is: ICD-10- CM Z23 Encount er for immuniz ation<b r/> JORDANA SOLIMAN 03/13 [facility] Outpatient Encounter [id number] 03/17 [facility] HC PRO PHONE CALL 5-10 MIN [id number] Diagnos is: ICD-10- CM Z71.9 Recreation Establishment Manager ing, 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
ENDY HERZOG 03/17 [facility] Outpatient Encounter [id number] 03/27 [facility] HEARING AID FITTING/CH ECKING [id number] Diagnos is: ICD-10- CM Z46.1 Encount er for fitting and adjustm ent of hearing aid<br/ > VIRGINIARizwanCAMILLE Curry 03/27 [facility] [place] [facility] Outpatient Encounter [id number] 03/30 [facility] [place] [facility] Outpatient Encounter [id number] 04/01 [facility] [place] [facility] Outpatient Encounter [id number] 04/09 [facility] [place] [facility] Outpatient Encounter [id number] 05/06 [facility] [place] [facility] HEARING AID REPAIR/MOD IFYING [id number] Diagnos is: ICD-10- CM H90.5 Unspeci fied sensori neural hearing loss
EMILEE SHEFFIELD 05/19 [facility] [place] [facility] Outpatient Encounter [id number] 05/29 [facility] [place] [facility] Outpatient Encounter [id number] 07/08 [facility] [place] [facility] OFFICE O/P EST MOD 30 MIN [id number] Diagnos is: ICD-10- CM M25.569 Pain in 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 knee
MAL JJ 07/10 [facility] [place] [facility] Outpatient Encounter [id number] ELEN MORRIS 07/15 [facility] [place] [facility] Outpatient Encounter [id number] 07/17 [facility] [place] [facility] Outpatient Encounter [id number] ELEN MORRIS NDA J 07/22 [facility] [place] [facility] Outpatient Encounter [id number] 07/24 [place] [facility] [place] [facility] Outpatient Encounter [id number] 08/04 [facility] [place] [facility] OFF/OP EST MAY X REQ PHY/QHP [id number] Diagnos is: ICD-10- CM H90.3 Sensori neural hearing loss, bilater al
REBECCA RICK MARIMAR M 08/20 [facility] [place] [facility] [employer] [facility] ORTHC/PROS TC MGMT SBSQ ENC [id number] Diagnos is: ICD-10- CM M79.673 Pain in 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 foot
MARGI DARLING 08/20 [facility] [place] [facility] Outpatient Encounter [id number] 09/06 [facility] [place] [facility] Outpatient Encounter [id number] 09/06 [facility] [place] [facility] Outpatient Encounter [id number] 09/07 [facility] [place] [facility] Outpatient Encounter [id number] 09/09 [facility] [place] [facility] Outpatient Encounter [id number] ALEXANDRAELEN SORIANO NDA J 09/13 [facility] [place] [facility] Outpatient Encounter [id number] 09/15 [facility] [place] [facility] [employer] [facility] MTMS BY PHARM EST 15 MIN [id number] Diagnos is: ICD-10- CM Z79.01 nursing home (curren t) use of anticoa gulants
KEVEN DANIELLE 09/16 [facility] [place] [facility] Outpatient Encounter [id number] 09/22 [place] [facility] [place] [facility] Outpatient Encounter [id number] 09/23 [place] [facility] [place] [facility] Outpatient Encounter [id number] Millie RAI 09/27 [place] [facility] [place] [facility] Outpatient Encounter [id number] Millie RAI M 10/17 [place] [facility] [place] [facility] Outpatient Encounter [id number] 10/18 [place] [facility] [place] [facility] Outpatient Encounter [id number] MADISON JAVIER M 10/18 [place] [facility] Procedures Combined list of: 1) Procedures from Department of Veterans Affairs facilities going back up to thelast 18 months, not all [place] non-surgical procedures are included; 2) All procedures from the Department of Defense facilities. Procedure Procedure Type Code Date Perfomer Comments Sourc e Right CEA RECHANNELING OF ARTERY 03819 3 OSIEL MONTANO RT-RIGHT SIDE [facility] Social History Combined list of available smoking, tobacco, and other social history from Department of Defense and Veterans Affairs facilities. Social History Type Response Date Comment Sourc e Tobacco smoking status NHIS VA-TOBACCO FORMER USER 07/10/2023 [facility] History of tobacco use IA-TOBACCO QUIT 1 5 YRS OR MORE 07/10/2023 [facility] History of tobacco use IA-TOBACCO FORMER USER 06/13/2022 [facility] History of tobacco use IA-TOBACCO QUIT 1 5 YRS OR MORE 04/29/2021 [facility] History of tobacco use IA-TOBACCO NEVER USED 05/23/2019 [facility] History of tobacco use VA-TOBACCO FORMER USER 04/01/2018 [facility] History of tobacco use FORMER TOBACCO US ER 7Y OR GREATER 06/16/2017 [facility] History of tobacco use FORMER TOBACCO US ER 7Y OR GREATER 05/12/2016 [facility] History of tobacco use FORMER TOBACCO US ER 7Y OR GREATER 05/24/2015 [facility] History of tobacco use 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 Additional future care activities may be listed in the Assessment and Plan section. Date/Time Care Activity Care Activity Detail Facili ty 12/22/2023 AMBULATORY - SURGERY AMBULATORY - SURGERY [facility] 01/06/2024 AMBULATORY - NONE AMBULATORY - NONE [facility] 01/21/2024 AMBULATORY - MEDICINE AMBULATORY - MEDICI NE [facility] 01/21/2024 AMBULATORY - MEDICINE AMBULATORY - MEDICI NE [facility] 01/21/2024 AMBULATORY - MEDICINE AMBULATORY - MEDICI NE [facility] 03/22/2024 AMBULATORY - NONE AMBULATORY - NONE [facility] Advance Directives List of completed, amended, or rescinded Advance Directives on record at [facility] facilities. An actual copy of the Directive is not included. Date Advance Directive Provider Source 04/29/2016 CLINICAL WARNING SANGEETA ALVARES [facility] 2014 CLINICAL WARNING ISAAC DABRY [facility] 04/01/2005 ADVANCE DIRECTIVE VALERIE MILLAN [facility]
--- OUTSIDE RECORDS SUMMARY | 2023-11-12 12:53 | XMS_ITS | Encounter Summary ---
Author Name [facility] Organization [facility] Address [address] [place] [address] Care Team Providers Care Maxillofacial Prosthetics Dentist Name Role Phone CAMERONDESTINI MONTAÑO Primary Care Provider Unavailabl e Insurance Providers: All historical and current Section [...] Patient's Relationship to Policy Hernández [facility] (WNR) MEDICARE ADVANTAGE [facility] (WN) Jun 08, 2019 [id number] SUBHASH,BE RNARD PATIENT [facility] (WNR) MEDICARE ADVANTAGE [facility] (WN) Aug 06, 2013 [id number] SUBHASH,BE RNARD PATIENT Selected Encounter This section includes the information on record at [place] for the Encounter. Date/Time Encounter Type Encounter Description Reason Provider Source October 18, 2023 05:59 PM Outpatient Encounter ADMIN PAT ACTIVTIES (MASNONCT) CARLOS RAI Encounter Template Text not used by [place] Plan of Treatment: Future Appointments (+ 6 months) and Future Tests (+/- 45 days) The Plan of Treatment section includes future care activities for the patient from [facility] This section includes future appointments and future orders which are active, pending or scheduled. Future Appointments This section includes appointments that were scheduled to occur 6 months from the date of the Encounter, up to a maximum of 20 appointments. The data comes from all [facility]. Appointment Date/Time Appointment Type Appointme nt Facility Name Dec 22, 2023 12:30 PM AMBULATORY - [place] [facility] Jan 06, 2024 01:00 PM [facility] Jan 21, 2024 11:00 AM AMBULATORY - MEDICINE [facility] Jan 21, 2024 12:45 PM AMBULATORY - MEDICINE [facility] Jan 21, 2024 01:00 PM AMBULATORY - MEDICINE [facility] Mar 22, 2024 02:10 PM AMBULATORY - NONE [facility] Active, Pending, and Scheduled Orders This [...] comes from all [facility]. Test Date/Time Test Type Test Details Facility Name Sep 09, 2023 12:00 AM Laboratory - Chemi stry Order BASIC METABOLIC PANEL+MG PLASMA [facility] Sep 09, 2023 12:00 AM Laboratory - Chemi stry Order HEMOGLOBIN A1C BLOOD [facility] Sep 09, 2023 12:00 AM Laboratory - Chemi stry Order LIPID PANEL,NON-FASTING PLASMA [facility] Sep 11, 2023 10:36 AM Consult Order COMMUNITY CARE-OPHTHALMOLOGY Cons [facility] Choice [facility] Social History: Smoking Status (Most current) and Tobacco Use (All prior to encounter date) This section includes the most current, and the historical, smoking and tobacco- related health factors from the [place] facility where the Encounter took place. Current Smoking Status This section includes the most current smoking, or tobacco-related health factor, from the [place] facility where the Encounter took place. Date/Time Current Smoking Status Comment Facil itsergio Jul 10, 2023 01:45 PM VA-TOBACCO FORMER USER [facility] Tobacco Use History This section includes a history of the smoking, or tobacco-related health factors, that were collected on or before the date of the Encounter. The data comes from the [place] facility where the Encounter took place. Date/Time Smoking Status/Tobacco Use Comment F acility Jul 10, 2023 01:45 PM VA-TOBACCO QUIT 15 YRS OR MORE [facility] Jun 13, 2022 01:15 PM VA-TOBACCO FORMER USER [facility] Jun 13, 2022 01:15 PM VA-TOBACCO QUIT 15 YRS OR MORE [facility] Apr 29, 2021 12:45 PM VA-TOBACCO FORMER USER [facility] Apr 29, 2021 12:45 PM VA-TOBACCO QUIT 15 YRS OR MORE [facility] May 23, 2019 01:02 PM VA-TOBACCO NEVER USED [facility] Apr 01, 2018 12:53 PM VA-TOBACCO FORMER USER [facility] Apr 01, 2018 12:53 PM VA-TOBACCO QUIT 15 YRS OR MORE [facility] Jun 16, 2017 08:20 AM FORMER TOBACCO USER 7Y OR GREATE R [facility] May 12, 2016 11:04 AM FORMER TOBACCO USER 7Y OR GREATE R [facility] May 24, 2015 01:56 PM FORMER TOBACCO USER 7Y OR GREATE R [facility] Aug 09, 2014 09:40 AM LIFETIME NON-TOBACCO USER [facility] October 25, 2013 09:46 AM FORMER TOBACCO USER 7Y OR GREATE R [facility] Mar 17, 2007 02:35 PM FORMER TOBACCO USER 7Y OR GREATE R [facility] Mar 04, 2006 11:27 AM FORMER TOBACCO USE >1Y [facility] Advance Directives: All historical and current Section Date Range: From patient's date of to the date document was created. This section includes ALL of a patient's completed or amended [place] Advance and Rescinded Directives. The entries below indicate that a directive exists for the patient, but an actual copy is not included with this document. The data comes from all [facility]. Date Advance Directives Provider Source Apr 29, 2016 CLINICAL WARNING SANGEETA ALVARES [facility] 2014 CLINICAL WARNING ISAAC DARBY [facility] Apr 01, 2005 ADVANCE DIRECTIVE VALERIE MILLAN [facility] Encounter Notes: All associated encounter notes This section contains the clinical notes associated to the Encounter. Date/Time Encounter Note(s) Provider Source October 20, 2023 01:41 PM ADDENDUM: LOCAL TITLE: Addendum STANDARD TITLE: ADDENDUM DATE OF NOTE: OCTOBER 20, 2023@13:41:32 ENTRY DATE: OCTOBER 20, 2023@13:41:33 AUTHOR: FLORES GRANT COSIGNER: URGENCY: STATUS: COMPLETED was seen in a Community ED. Records uploaded to chart. Please review and follow up as appropriate. /luis eduardo/ ADIS DUENAS ADVANCED PLAY THERAPIST Signed: 10/20/2023 13:41 Receipt Acknowledged By: 10/20/2023 15:46 /es/ Destini Cameron MD Physician 10/20/2023 13:44 /es/ ANTONELLA ALCANTAR RN REGISTERED NURSE for GAIL HERZOG === --- Original Document --- 10/17/23 [facility] SELF PRESENTING CARE COORD PLAN NOTE: Emergency Notification Intake Date Presenting to the Facility: October Method of Contact: Notified from [employer] worklist Notification ID: [id number] [facility] Referral #: [facility] Name: Hospital: [facility] Address: [address] City: [place]: [place] Zip Code: Phone : Community Facility Point of Contact: Name: Phone: Chief complaint: SORE THROAT,COUGH,SPITTING UP PHELGM,TOOK BUNCH OF TESTS Primary Diagnosis: Disposition Unknown at time of intake note entry Notify - Submit for 1725/1728 /luis eduardo/ HALEY MORRIS SUPERVISORY FORESTER ON DUTY Signed: 10/18/2023 18:03 Receipt Acknowledged By: 10/19/2023 09:56 /luis eduardo/ Shani Coffey MA, PHN, RN-BC driveway sealer Client Account Representative for CARLOS RAI 10/19/2023 ADDENDUM STATUS: COMPLETED Forwarding per social split to the surrogate [facility] RN for continuity of care. /luis eduardo/ Shani Coffey MA, PHN, RN-BC driveway sealer Client Account Representative Signed: 10/19/2023 09:55 Receipt Acknowledged By: 10/19/2023 15:31 /tia SEARS [facility] Care outcome analyst 10/19/2023 ADDENDUM STATUS: COMPLETED I sent a fax to the [facility] noted above, requesting records - ED note, and if applicable the H&P/DC summary for the 10/17/23 visit. Alerting the PACT RN for awareness. The PACT will again be notified once records are obtained. /tia SEARS [facility] Care outcome analyst Signed: 10/19/2023 15:32 Receipt Acknowledged By: 10/19/2023 15:36 /luis eduardo/ VANDANA GONZALEZ REGISTERED NURSE for GAIL HERZOG 10/17/2023 ADDENDUM STATUS: COMPLETED VistA Imaging Scanned Document - Addendum. ED 10-17-2023 [facility] SCANNED DOCUMENT SIGNATURE NOT REQUIRED Electronically Filed: 10/20/2023 by: ADIS DUENAS ADVANCED PLAY THERAPIST FLORES GRANT [facility] October 19, 2023 03:32 PM ADDENDUM: LOCAL TITLE: Addendum STANDARD TITLE: ADDENDUM DATE OF NOTE: OCTOBER 19, 2023@15:32:32 ENTRY DATE: OCTOBER 19, 2023@15:32:33 AUTHOR: ROM SEARS EXP COSIGNER: URGENCY: STATUS: COMPLETED I sent a fax to the [facility] noted above, requesting records - ED note, and if applicable the H&P/DC summary for the 10/17/23 visit. Alerting the PACT RN for awareness. The PACT will again be notified once records are obtained. /tia SEARS [facility] Care outcome analyst Signed: 10/19/2023 15:32 Receipt Acknowledged By: 10/19/2023 15:36 /tia GONZALEZ REGISTERED NURSE for GAIL HERZOG === --- Original Document --- 10/17/23 [facility] SELF PRESENTING CARE COORD PLAN NOTE: Emergency Notification Intake Date Presenting to the Facility: October Method of Contact: Notified from ECR worklist Notification ID: [id number] [facility] Referral #: [facility] Name: Hospital: [facility] Address: [address] City: [place]: [place] Zip Code: Phone : [facility] Facility Point of Contact: Name: Phone: Chief complaint: SORE THROAT,COUGH,SPITTING UP PHELGM,TOOK BUNCH OF TESTS Primary Diagnosis: Disposition Unknown at time of intake note entry Notify - Submit for /luis eduardo/ HALEY MORRIS SUPERVISORY FORESTER ON DUTY Signed: 10/18/2023 18:03 Receipt Acknowledged By: 10/19/2023 09:56 /luis eduardo/ Shani Coffey MA, PHN, RN-BC driveway sealer Client Account Representative for CARLOS RAI 10/19/2023 ADDENDUM STATUS: COMPLETED Forwarding per social split to the surrogate [facility] RN for continuity of care. /luis eduardo/ Shani Coffey MA, PHN, RN-BC driveway sealer Client Account Representative Signed: 10/19/2023 09:55 Receipt Acknowledged By: 10/19/2023 15:31 /tia SEARS Community Care outcome analyst ROM SEARS [facility] October 19, 2023 09:55 AM ADDENDUM: LOCAL TITLE: Addendum STANDARD TITLE: ADDENDUM DATE OF NOTE: OCTOBER 19, 2023@09:55:25 ENTRY DATE: OCTOBER 19, 2023@09:55:27 AUTHOR: SHANI COFFEY EXP COSIGNER: URGENCY: STATUS: COMPLETED Forwarding per social split to the surrogate [facility] RN for continuity of care. /tia Coffey MA PHN, RN-BC driveway sealer Client Account Representative Signed: 10/19/2023 09:55 Receipt Acknowledged By: 10/19/2023 15:31 /tia SEARS Community Care outcome analyst === --- Original Document --- 10/17/23 [facility] SELF PRESENTING CARE COORD PLAN NOTE: Emergency Notification Intake Date Presenting to the Facility: October Method of Contact: Notified from [employer] worklist Notification ID: [id number] [facility] Referral #: [facility] Name: Hospital: [facility] Address: [address]: [facility]: [place] Zip Code: Phone : [facility] Point of Contact: Name: Phone: Chief complaint: SORE THROAT,COUGH,SPITTING UP PHELGM,TOOK BUNCH OF TESTS Primary Diagnosis: Disposition Unknown at time of intake note entry Notify - Submit for /tia MORRIS SUPERVISORY FORESTER ON DUTY Signed: 10/18/2023 18:03 Receipt Acknowledged By: 10/19/2023 09:56 /luis eduardo/ Shani Coffey MA, PHN, RN-BC driveway sealer Client Account Representative for CARLOS RAI 10/19/2023 ADDENDUM STATUS: UNSIGNED You may not VIEW this UNSIGNED Addendum. SHANI COFFEY [facility] October 17, 2023 10:00 AM NONVA NOTE: LOCAL TITLE: [facility] SELF PRESENTING CARE COORD PLAN STANDARD TITLE: NONVA NOTE DATE OF NOTE: OCTOBER 17, 2023@10:00 ENTRY DATE: OCTOBER 18, 2023@18:00:24 AUTHOR: HALEY MORRIS EXP COSIGNER: URGENCY: STATUS: COMPLETED [facility] SELF PRESENTING CARE COORD PLAN NOTE Has ADDENDA Emergency Notification Intake Date Presenting to the Facility: October Method of Contact: Notified from [employer] worklist Notification ID: [id number] [facility] Referral #: [facility] Name: Hospital: [facility] Address: [address]: [place]: [place] Zip Code: Phone : [facility] Point of Contact: Name: Phone: Chief complaint: SORE THROAT,COUGH,SPITTING UP PHELGM,TOOK BUNCH OF TESTS Primary Diagnosis: Disposition Unknown at time of intake note entry Notify - Submit for tia MORRIS SUPERVISORY FORESTER ON DUTY Signed: 10/18/2023 18:03 Receipt Acknowledged By: 10/19/2023 09:56 /es/ Shani Coffey MA, PHN, RN-BC driveway sealer Client Account Representative for CARLOS RAI 10/19/2023 ADDENDUM STATUS: COMPLETED Forwarding per social split to the surrogate [facility] RN for continuity of care. /es/ Shani Coffey MA, PHN, RN-BC driveway sealer Client Account Representative Signed: 10/19/2023 09:55 Receipt Acknowledged By: 10/19/2023 15:31 /es/ ROM SEARS [facility] Care outcome analyst 10/19/2023 ADDENDUM STATUS: COMPLETED I sent a fax to the [facility] noted above, requesting records - ED note, and if applicable the H&P/DC summary for the 10/17/23 visit. Alerting the PACT RN for awareness. The PACT will again be notified once records are obtained. /luis eduardo/ ROM SEARS [facility] Care outcome analyst Signed: 10/19/2023 15:32 Receipt Acknowledged By: 10/19/2023 15:36 /es/ VANDANA GONZALEZ REGISTERED NURSE for GAIL HERZOG 10/17/2023 ADDENDUM STATUS: COMPLETED VistA Imaging Scanned Document - Addendum. ED 10-17-2023 [facility] SCANNED DOCUMENT SIGNATURE NOT REQUIRED Electronically Filed: 10/20/2023 by: ADIS DUENAS ADVANCED PLAY THERAPIST 10/20/2023 ADDENDUM STATUS: COMPLETED was seen in a [facility] ED. Records uploaded to chart. Please review and follow up as appropriate. /luis eduardo/ ADIS DUENAS ADVANCED PLAY THERAPIST Signed: 10/20/2023 13:41 Receipt Acknowledged By: * AWAITING SIGNATURE * DESTINI CAMERON 10/20/2023 13:44 /es/ ANTONELLA ALCANTAR,RN REGISTERED NURSE for HALEY AGUILAR [facility]
--- OUTSIDE RECORDS SUMMARY | 2023-11-12 12:54 | XMS_ITS | Encounter Summary ---
Author Name Department of Vetera Affairs Organization [facility] of Veter[facility] Affairs Address [address] [place] [address] Care Team Providers Care Pneumatic Tube Fitter Name Role Phone DESTIIN JJ Primary Care Provider Unavailabl e Insurance Providers: [...] Patient's Relationship to Policy Hernández [facility] OF [facility] (WNR) MEDICARE [facility] (WN) Jun 08, 2019 [id number] SUBHASH,BE RNARD PATIENT [facility] OF [facility] (WNR) MEDICARE ADVANTAGE [facility] (WN) Aug 06, 2013 RIVAAB [id number] SUBHASH,BE RNARD PATIENT Selected Encounter This section includes the information on record at [place] for the Encounter. Date/Time Encounter Type Encounter Description Reason Provider Source October 19, 2023 04:01 PM Outpatient Encounter TELEPHONE TRIAGE MADISON JAVIER Encounter Template Text not used by [place] Plan of Treatment: Future Appointments (+ 6 months) and Future Tests (+/- 45 days) The Plan of Treatment section includes future care activities for the patient from all [place] [facility] [facility]. This section includes future appointments and future orders which are active, pending or scheduled. Future Appointments This section includes appointments that were scheduled to occur 6 months from the date of the Encounter, up to a maximum of 20 appointments. The data comes from all [facility]. Appointment Date/Time Appointment Type Appointme nt Facility Name Dec 22, 2023 12:30 PM AMBULATORY - SURGERY [facility] Jan 06, 2024 01:00 PM AMBUL[facility]ORY - NONE [facility] Jan 21, 2024 11:00 AM AMBULATORY - MEDICINE [facility] Jan 21, 2024 12:45 PM AMBULATORY - MEDICINE [facility] Jan 21, 2024 01:00 PM AMBULATORY - MEDICINE [facility] Mar 22, 2024 02:10 PM AMBULATORY - NONE [facility] Active, Pending, and Scheduled Orders This section includes a listing of several types of active, pending, and scheduled orders, including clinic medications orders, diagnostic test orders, procedure orders and consult orders; where the start date of the order is 45 days before the date of the Encounter or 45 days after the date of theEncounter. The data comes from all [facility]. Test Date/Time Test Type Test Details Facility Name Sep 09, 2023 12:00 AM Laboratory - Chemi stry Order HEMOGLOBIN A1C BLOOD [facility] Sep 09, 2023 12:00 AM Laboratory - Chemi stry Order LIPID PANEL,NON-FASTING PLASMA [facility] Sep 09, 2023 12:00 AM Laboratory - Chemi stry Order BASIC METABOLIC PANEL+MG PLASMA [facility] Sep 11, 2023 10:36 AM Consult Order COMMUNITY CARE-OPHTHALMOLOGY Cons Customer Service Security Officer's Choice [facility] Social History: Smoking Status (Most current) and Tobacco Use (All prior to encounter date) This section includes the most current, and the historical, smoking and tobacco- related health factors from the [place] facility where the Encounter took place. Current Smoking Status This section includes the most current smoking, or tobacco-related health factor, from the [place] facility where the Encounter took place. Date/Time Current Smoking Status Comment Facil ity Jul 10, 2023 01:45 PM VA-TOBACCO FORMER USER [facility] Tobacco Use History This section includes a history of the smoking, or tobacco-related health factors, that were collected on or before the date of the Encounter. The data comes from the [place] facility where the Encounter took place. Date/Time Smoking Status/Tobacco Use Comment F acility Jul 10, 2023 01:45 PM VA-TOBACCO QUIT 15 YRS OR MORE [facility] Jun 13, 2022 01:15 PM VA-TOBACCO FORMER USER [facility] Jun 13, 2022 01:15 PM VA-TOBACCO QUIT 15 YRS OR MORE [facility] Apr 29, 2021 12:45 PM VA-TOBACCO FORMER USER [facility] Apr 29, 2021 12:45 PM VA-TOBACCO QUIT 15 YRS OR MORE [facility] May 23, 2019 01:02 PM VA-TOBACCO NEVER USED [facility] Apr 01, 2018 12:53 PM VA-TOBACCO FORMER USER [facility] Apr 01, 2018 12:53 PM VA-TOBACCO QUIT 15 YRS OR MORE [facility] Jun 16, 2017 08:20 AM FORMER TOBACCO USER 7Y OR GREATE R [facility] May 12, 2016 11:04 AM FORMER TOBACCO USER 7Y OR GREATE R [facility] May 24, 2015 01:56 PM FORMER TOBACCO USER 7Y OR GREATE R [facility] Aug 09, 2014 09:40 AM LIFETIME NON-TOBACCO USER [facility] October 25, 2013 09:46 AM FORMER TOBACCO USER 7Y OR GREATE R [facility] Mar 17, 2007 02:35 PM FORMER TOBACCO USER 7Y OR GREATE R [facility] Mar 04, 2006 11:27 AM FORMER TOBACCO USE >1Y [facility] Advance Directives: All historical and current Section Date Range: From patient's date of to the date document was created. This section includes ALL of a patient's completed or amended [place] Advance and Rescinded Directives. The entries below indicate that a directive exists for the patient, but an actual copy is not included with this document. The data comes from all [facility]. Date Advance Directives Provider Source Apr 29, 2016 CLINICAL WARNING SANGEETA ALVARES [facility] 2014 CLINICAL WARNING ISAAC DARBY [facility] Apr 01, 2005 ADVANCE DIRECTIVE VALERIE MILLAN [facility] Encounter Notes: All associated encounter notes This section contains the clinical notes associated to the Encounter. Date/Time Encounter Note(s) Provider Source October 19, 2023 04:01 PM PHARMACY NOTE: LOCAL TITLE: CCC: PHARMACY I STANDARD TITLE: PHARMACY NOTE DATE OF NOTE: OCTOBER 19, 2023@16:01 ENTRY DATE: OCTOBER 19, 2023@16:01:40 AUTHOR: MADISON JAVIER EXP COSIGNER: URGENCY: STATUS: COMPLETED General request: Who is contacting the [facility]: [place]/patient Best contact number: Request: is requesting a new prescription written for the following medication: [place] is requesting a new prescription for loratadine. Please review. Please review and follow up with with any questions. Thank you. Call back #: Alerts are not monitored regularly by this user due to incoming calls through [facility] ([facility]) Contact Center. Please follow up with local outpatient pharmacy for any immediate or urgent needs. /luis eduardo/ MADISON JAVIER V23 [facility] CASING WRINGER OPERATOR Signed: 10/19/2023 16:02 Receipt Acknowledged By: 10/20/2023 07:54 /luis eduardo/ Destini Jj MD Physician MADISON JAVIER [facility]
--- OUTSIDE RECORDS SUMMARY | 2023-11-12 12:54 | XMS_ITS | Encounter Summary ---
Author Name Department of Vetera Affairs Organization Department of Vetera ns Affairs Address [address] [place] [address] Care Team Providers Care Asphalt Tamper Name Role Phone DESTINI JJ Primary Care Provider Unavailabl e Insurance [...] Patient's Relationship to Policy Hernández [facility] (WNR) MEDICARE ADVANTAGE [facility] (WN) Jun 08, 2019 [id number] SUBHASH,BE RNARD PATIENT [facility] OF [facility] (WNR) MEDICARE [facility] (WN) Aug 06, 2013 RIVAAB [id number] SUBHASH,BE RNARD PATIENT Selected Encounter This section includes the information on record at [place] for the Encounter. Date/Time Encounter Type Encounter Description Reason Pro vider Source October 19, 2023 01:58 PM Outpatient Encounter TELEPHONE TRIAGE IHE Encounter Template Text not used by [place] Plan of Treatment: Future Appointments (+ 6 months) and Future Tests (+/- 45 days) The Plan of Treatment section includes future care activities for the patient from all [place] [facility]. This section includes future appointments and future orders which are active, pending or scheduled. Future Appointments This section includes appointments that were scheduled to occur 6 months from the date of the Encounter, up to a maximum of 20 appointments. The data comes from all [facility]. Appointment Date/Time Appointment Type Appointme nt Facility Name Dec 22, 2023 12:30 PM AMBULATORY - SURGERY [place] [facility] Jan 06, 2024 01:00 PM [facility] Jan 21, 2024 11:00 AM AMBULATORY - MEDICINE [facility] Jan 21, 2024 12:45 PM AMBULATORY - MEDICINE [facility] Jan 21, 2024 01:00 PM AMBULATORY - MEDICINE [facility] Mar 22, 2024 02:10 PM AMBULATORY - NONE [facility] Active, Pending, and Scheduled Orders This section includes a listing of several types of active, pending, and scheduled orders, including clinic medications orders, diagnostic test orders, procedure orders and consult orders; where the start date of the order is 45 days before the date of the Encounter or 45 days after the date of theEncounter. The data comes from all [facility]. Test Date/Time Test Type Test Details Facility Name Sep 09, 2023 12:00 AM Laboratory - Chemi stry Order BASIC METABOLIC PANEL+MG PLASMA [facility] Sep 09, 2023 12:00 AM Laboratory - Chemi stry Order LIPID PANEL,NON-FASTING PLASMA [facility] Sep 09, 2023 12:00 AM Laboratory - Chemi stry Order HEMOGLOBIN A1C BLOOD [facility] Sep 11, 2023 10:36 AM Consult Order COMMUNITY CARE-OPHTHALMOLOGY Cons Water Systems Engineer's Choice [facility] Social History: Smoking Status (Most [...] ity Jul 10, 2023 01:45 PM VA-TOBACCO QUIT 15 YRS OR MORE [facility] Tobacco Use History This section includes a history of the smoking, or tobacco-related health factors, that were collected on or before the date of the Encounter. The data comes from the [place] facility where the Encounter took place. Date/Time Smoking Status/Tobacco Use Comment F acility Jul 10, 2023 01:45 PM VA-TOBACCO QUIT 15 YRS OR MORE [facility] Jun 13, 2022 01:15 PM VA-TOBACCO FORMER USER [facility] Jun 13, 2022 01:15 PM VA-TOBACCO QUIT 15 YRS OR MORE [facility] Apr 29, 2021 12:45 PM VA-TOBACCO FORMER USER [facility] Apr 29, 2021 12:45 PM VA-TOBACCO QUIT 15 YRS OR MORE [facility] May 23, 2019 01:02 PM VA-TOBACCO NEVER USED [facility] Apr 01, 2018 12:53 PM VA-TOBACCO FORMER USER [facility] Apr 01, 2018 12:53 PM VA-TOBACCO QUIT 15 YRS OR MORE [facility] Jun 16, 2017 08:20 AM FORMER TOBACCO USER 7Y OR GREATE R [facility] May 12, 2016 11:04 AM FORMER TOBACCO USER 7Y OR GREATE R [facility] May 24, 2015 01:56 PM FORMER TOBACCO USER 7Y OR GREATE R [facility] Aug 09, 2014 09:40 AM LIFETIME NON-TOBACCO USER [facility] October 25, 2013 09:46 AM FORMER TOBACCO USER 7Y OR GREATE R [facility] Mar 17, 2007 02:35 PM FORMER TOBACCO USER 7Y OR GREATE R [facility] Mar 04, 2006 11:27 AM FORMER TOBACCO USE >1Y [facility] Advance Directives: All historical and current Section Date Range: From patient's date of to the date document was created. This section includes ALL of a patient's completed or amended [place] Advance and Rescinded Directives. The entries below indicate that a directive exists for the patient, but an actual copy is not included with this document. The data comes from all [facility]. Date Advance Directives Provider Source Apr 29, 2016 CLINICAL WARNING SANGEETA ALVARES [facility] 2014 CLINICAL WARNING ISAAC DARBY [facility] Apr 01, 2005 ADVANCE DIRECTIVE VALERIE MILLAN [facility] Encounter Notes: All associated encounter notes This section contains the clinical notes associated to the Encounter. Date/Time Encounter Note(s) Provider Source October 19, 2023 04:03 PM ADDENDUM: LOCAL TITLE: Addendum STANDARD TITLE: ADDENDUM DATE OF NOTE: OCTOBER 19, 2023@16:03:30 ENTRY DATE: OCTOBER 19, 2023@16:03:32 AUTHOR: MADISON JAVIER COSIGNER: URGENCY: STATUS: COMPLETED called voiding his request for cetirizine. He is now requesting loratadine. /es/ MADISON JAVIER V23 [facility] NEWSPAPER PHOTOJOURNALIST Signed: 10/19/2023 16:04 Receipt Acknowledged By: 10/20/2023 07:32 /luis eduardo/ Destini Jj MD Physician --- Original Document --- 10/19/23 [facility] MEDICATION RENEWAL REQUEST: Medication renewal(s) requested by patient for: Non-controlled substance(s): SABRINA CULLEN is requesting a renewal of the following prescription(s): [place] is in need of this please review and renew if appropriate CETIRIZINE HCL 10MG TAB [id number] 30 05/08/2019 05/07/2018 11/18/2018 10 ANNI IRENE .927 TAKE ONE TABLET BY MOUTH EVERY MORNING If clinically appropriate, please renew. Meds to be MAILED This note was created by a 0 [facility] employee. Replies to this message are not monitored. Please do not reply back to the author of this message. If not renewing a medication, please have your clinic contact patient with reason. Thank you. Active and Recently Outpatient Medications (excluding Supplies): Active Outpatient Medications Status 1) APIXABAN 5MG TAB TAKE ONE TABLET BY MOUTH EVERY 12 ACTIVE HOURS TO TREAT AND/OR PREVENT BLOOD CLOTS 2) ATORVASTATIN CALCIUM 40MG TAB TAKE ONE TABLET BY ACTIVE MOUTH AT BEDTIME FOR CHOLESTEROL 3) DICLOFENAC NA 1% TOP GEL APPLY 4 GRAMS TOPICALLY ACTIVE TWICE A DAY TO AFFECTED AREA FOR PAIN. *USE DOSE CARD IN BOX TO MEASURE DOSE. MAX 32 GRAMS PER DAY. 4) DOCUSATE NA 50MG/SENNOSIDES 8.6MG TAB TAKE 1 TABLET ACTIVE BY MOUTH TWICE A DAY NEEDED FOR CONSTIPATION 5) FINASTERIDE 5MG TAB TAKE ONE TABLET BY MOUTH EVERY ACTIVE DAY FOR PROSTATE 6) HYDROCHLOROTHIAZIDE 12.5MG TAB TAKE ONE TABLET BY ACTIVE MOUTH EVERY DAY FOR BLOOD PRESSURE 7) LIDOCAINE 5% PATCH APPLY ONE PATCH FOR EACH KNEE ACTIVE TOPICALLY EVERY DAY NEEDED FOR UP TO 12 HOURS FOR PAIN 8) LISINOPRIL 40MG TAB TAKE ONE TABLET BY MOUTH EVERY ACTIVE DAY FOR HEART AND BLOOD PRESSURE 9) METOPROLOL SUCCINATE 50MG SA TAB TAKE ONE-HALF TABLET ACTIVE (S) BY MOUTH EVERY DAY 10) PSYLLIUM ORAL PWD TAKE 1 TABLESPOONFUL BY MOUTH EVERY ACTIVE DAY FOR REGULAR BOWEL MOVEMENTS 11) TAMSULOSIN HCL 0.4MG CAP TAKE ONE CAPSULE BY MOUTH ACTIVE EVERY EVENING FOR PROSTATE 12) VANICREAM TOP CREAM APPLY THIN LAYER TOPICALLY TWICE ACTIVE A DAY FOR DRY SKIN Future appointments: 12/04/2023 13:30 [facility] ULTRASOUND AM 12/22/2023 12:30 [facility] VASC ORECCHIA PHONE 01/21/2024 11:00 [facility] ECHO SPECIALTY 3J 01/21/2024 12:45 [facility] 79 EKG 01/21/2024 13:00 [facility] CARDIAC EP DREKONJA N 03/22/2024 14:[address] [facility]-OPHTHALMOLOGY /luis eduardo/ IVET OCONNOR 10 PCC Cook Manager Signed: 10/19/2023 13:59 Receipt Acknowledged By: * AWAITING SIGNATURE * DESTINI JJ DANA M [facility] October 19, 2023 01:58 PM PHARMACY NOTE: LOCAL TITLE: PHARMACY CALL CENTER MEDICATION RENEWAL REQUEST STANDARD TITLE: PHARMACY NOTE DATE OF NOTE: OCTOBER 19, 2023@13:58 ENTRY DATE: OCTOBER 19, 2023@13:58:44 AUTHOR: IVET CANSECO JR EXP COSIGNER: URGENCY: STATUS: COMPLETED PHARMACY CALL CENTER MEDICATION RENEWAL REQUEST Has ADDENDA Medication renewal(s) requested by patient for: Non-controlled substance(s): SABRINA CULLEN is requesting a renewal of the following prescription(s): [place] is in need of this please review and renew if appropriate CETIRIZINE HCL 10MG TAB [id number] 30 05/08/2019 05/07/2018 11/18/2018 10 ANNI IRENE .Macario TAKE ONE TABLET BY MOUTH EVERY MORNING If clinically appropriate, please renew. Meds to be MAILED This note was created by a [employer] [facility] employee. Replies to this message are not monitored. Please do not reply back to the author of this message. If not renewing a medication, please have your clinic contact patient with reason. Thank you. Active and Recently Outpatient Medications (excluding Supplies): Active Outpatient Medications Status 1) APIXABAN 5MG TAB TAKE ONE TABLET BY MOUTH EVERY 12 ACTIVE HOURS TO TREAT AND/OR PREVENT BLOOD CLOTS 2) ATORVASTATIN CALCIUM 40MG TAB TAKE ONE TABLET BY ACTIVE MOUTH AT BEDTIME FOR CHOLESTEROL 3) DICLOFENAC NA 1% TOP GEL APPLY 4 GRAMS TOPICALLY ACTIVE TWICE A DAY TO AFFECTED AREA FOR PAIN. *USE DOSE CARD IN BOX TO MEASURE DOSE. MAX 32 GRAMS PER DAY. 4) DOCUSATE NA 50MG/SENNOSIDES 8.6MG TAB TAKE 1 TABLET ACTIVE BY MOUTH TWICE A DAY NEEDED FOR CONSTIPATION 5) FINASTERIDE 5MG TAB TAKE ONE TABLET BY MOUTH EVERY ACTIVE DAY FOR PROSTATE 6) HYDROCHLOROTHIAZIDE 12.5MG TAB TAKE ONE TABLET BY ACTIVE MOUTH EVERY DAY FOR BLOOD PRESSURE 7) LIDOCAINE 5% PATCH APPLY ONE PATCH FOR EACH KNEE ACTIVE TOPICALLY EVERY DAY NEEDED FOR UP TO 12 HOURS FOR PAIN 8) LISINOPRIL 40MG TAB TAKE ONE TABLET BY MOUTH EVERY ACTIVE DAY FOR HEART AND BLOOD PRESSURE 9) METOPROLOL SUCCINATE 50MG SA TAB TAKE ONE-HALF TABLET ACTIVE (S) BY MOUTH EVERY DAY 10) PSYLLIUM ORAL PWD TAKE 1 TABLESPOONFUL BY MOUTH EVERY ACTIVE DAY FOR REGULAR BOWEL MOVEMENTS 11) TAMSULOSIN HCL 0.4MG CAP TAKE ONE CAPSULE BY MOUTH ACTIVE EVERY EVENING FOR PROSTATE 12) VANICREAM TOP CREAM APPLY THIN LAYER TOPICALLY TWICE ACTIVE A DAY FOR DRY SKIN Future appointments: 12/04/2023 13:30 [facility] ULTRASOUND AM 12/22/2023 12:30 [facility] VASC ORECCHIA PHONE 01/21/2024 11:00 [facility] ECHO SPECIALTY 3J 01/21/2024 12:45 MSP 79 EKG 01/21/2024 13:00 [facility]SP CARDIAC EP DREKONJA N 03/22/2024 14:[address] [facility]-OPHTHALMOLOGY /es/ IVET CANSECO JR VISN 10 PCC Cook Manager Signed: 10/19/2023 13:59 Receipt Acknowledged By: 10/20/2023 09:02 /luis eduardo/ Destini Jj MD Physician 10/19/2023 ADDENDUM STATUS: COMPLETED called voiding his request for cetirizine. He is now requesting loratadine. /luis eduardo/ MADISON JAVIER V23 [facility] NEWSPAPER PHOTOJOURNALIST Signed: 10/19/2023 16:04 Receipt Acknowledged By: 10/20/2023 07:32 /luis eduardo/ Destini Jj MD Physician IVET CANSECO JR [facility]
[2023-11-12 12:55] VITALS: BP 143/81; PULSE 71; RESP 18; TEMP 36.3
--- OUTSIDE RECORDS SUMMARY | 2023-11-12 12:55 | XMS_ITS | Encounter Summary ---
Author Organization [facility] Address [address] [place] [address] Care Team Providers Care Solutions Developer Name Role Phone Elsewhere, Pcp Primary Care Provider Unavailabl e Reason for Visit * Reason Onset Date Comments Order Request 09/10/2023 Encounter Details Date Type Department Care Team (Late Contact Info) Description 09/10/2023 Clinical Communication Department of Orthopedic Surgery in [place], [place] [address] [phone] Juventino Downey M.D. [address] [phone] Order Request Social History Tobacco Use Types [...] Department Care Team (Late Contact Info) Description 11/20/2023 1:30 PM CDT Appointment Department of Radiology in [place], [place] [address] [phone] Juventino Downey M.D. [address] [phone] 11/20/2023 2:30 PM CDT Office Visit Department of Family Medicine, [facility], in [place], [place] [address] [place] [phone] Yaa Montoya APRN C.N.P., D.N.P. [address] [phone] 12/16/2023 1:45 PM CDT Office Visit Department of Orthopedic Surgery in [place], [place] [address] [place] [phone] Brendan Porter P.A.-C. [address] [phone] 01/11/2024 1:00 PM CDT Appointment Department of Radiology in [place], [place] [address] [place] [phone] Juventino Downey M.D. [address] [phone] 01/11/2024 1:45 PM CDT Office Visit Department of Orthopedic Surgery in [place], [place] [address] [phone] Juventino Downey M.D. [address] [phone] documented as of this encounter Visit Diagnoses Not on filedocumented in this encounter Additional Health Concerns Assessment Noted Time PHQ-9 Depression Total Score: 0 04/27/20 14 2:21 PM ENVIRONMENTAL ENGINEERING INTERN documented as of this encounter Care Teams Solutions Developer Relationship Specialty Start Date End Date Elsewhere, Pcp PCP - General 09/29/21 documented as of this encounter
--- OUTSIDE RECORDS SUMMARY | 2023-11-12 12:55 | XMS_ITS | Encounter Summary ---
Author Organization [facility] Address [address] [place] [address] Care Team Providers Care Regular Senior Care Provider Name Role Phone Elsewhere, Pcp Primary Care Provider Unavailabl e Reason for Referral * Outpatient (Routine) - Closed Specialty Diagnoses / Procedures Referred By Xuan mcmahan Referred To Contact Diagnoses Primary Osteoarthritis Knee Left Procedures DX Knee Left 4+ Views Juventino Downey M.D. [address], [place] [address] [facility] Region Referral ID Status Reason Start Date Expiration Date Visits Re quested Visits Authorized [id number] Closed 08/07/2023 08/06/2024 1 1 RT BLIND Reason for Visit * Outpatient (Routine) - Closed Specialty Diagnoses / Procedures Referred By Xuan mcmahan Referred To Contact Diagnoses Primary Osteoarthritis Knee Left Procedures DX Knee Left 4+ Views Juventino Downey M.D. [address] [place] [address] [facility] Region Referral ID Status Reason Start Date Expiration Date Visits Re quested Visits Authorized [id number] Closed 08/07/2023 08/06/2024 1 1 Encounter Details Date Type Department Care Team (Latest Contact Info) Description 08/10/2023 11:56 AM ESCORT BLIND - 08/10/2023 11:59 PM ESCORT BLIND Hospital Encounter Department of Radiology in [place], [place] [address], [place] [address] Juventino Downey M.D. [address] [place] [phone] Primary Osteoarthritis Knee Left Discharge Disposition: Home [...] Care Team (Late st Contact Info) Description 11/20/2023 1:30 PM CDT Appointment Department of Radiology in [place], [place] [address] [address] Juventino Downey M.D. [address] [address] 11/20/2023 2:30 PM CDT Office Visit Department of Family Medicine, [facility], in [place], [place] [address] [address] Yaa Montoya APRN, C.N.P., D.N.P. [address] [address] 12/16/2023 1:45 PM CDT Office Visit Department of Orthopedic Surgery in [place], [place] [address] [address] Brendan Porter PAlexAAlex-C. [address] [address] 01/11/2024 1:00 PM CDT Appointment Department of Radiology in [place], [place] [address] [place] [address] Juventino Downey M.D. [address], [place] [address] 01/11/2024 1:45 PM CDT Office Visit Department of Orthopedic Surgery in [place], [place] [address] [place] [address] Juventino Downey M.D. [address] [place] [address] documented as of this encounter Procedures Procedure Name Priority Date/Time Associated Diagnosis Comments DX KNEE LEFT 4+ VIEWS RAD - Routine (most inpatients and all outpatients) 08/10/2023 12:19 PM ESCORT BLIND Primary Osteoarthritis Knee Left documented in this encounter Results * DX Knee Left 4+ Views (08/10/2023 12:19 PM ESCORT BLIND) Anatomical Region Laterality Modality Lower Extremity, Knee, Muscu loskeletal RST LOS, Musculoskeletal ARZ LOS, Muskuloskeletal FLA LOS Left Digit al Radiography Impressions 08/10/2023 12:57 PM ESCORT BLIND Severe tricompartmental osteoarthritic most prominent of the left medial compartment. Narrative 08/10/2023 12:57 PM ESCORT BLIND EXAM: DX KNEE LEFT 4+ VIEWS COMPARISON: Radiograph 12/22/2022 FINDINGS: No appreciable fracture. Tricompartmental osteoarthrosis most prominent in the medial compartments bilaterally with prominent siaa-xy-uqwz articulation of the left knee with prominent osteophytic spurring. Moderate joint effusion. Prominent degenerative joint space narrowing of the right patella with mild lateral subluxation. Procedure Note Monty Hightower M.D. - 08/10/2023 EXAM: DX KNEE LEFT 4+ VIEWS COMPARISON: Radiograph 12/22/2022 FINDINGS: No appreciable fracture. Tricompartmental osteoarthrosis mostprominent in the medial compartments bilaterally with pomvabltrzjyt-js-dotg articulation of the left knee with prominent [...] Total Score: 0 04/27/20 14 2:21 PM ESCORT BLIND documented as of this encounter Care Teams Regular Senior Care Provider Relationship Specialty Start Date End Date Elsewhere, Pcp PCP - General 09/29/21 documented as of this encounter
--- OUTSIDE RECORDS SUMMARY | 2023-11-12 12:55 | XMS_ITS | Encounter Summary ---
Author Organization [facility] Address [address] [place] [address] Care Team Providers Care Assistant Director Name Role Phone Elsewhere, Pcp Primary Care Provider Unavailabl e Reason for Referral * Outpatient (Routine) - Authorized Specialty Diagnoses / Procedures Referred By Keyshawnac t Referred To Contact Diagnoses Primary Osteoarthritis Knee Left Procedures DX Knee Left Standing 3 Views Juventino Downey M.D. [address] [address] [facility] Region Referral ID Status Reason Start Date Expiration Date V isits Requested Visits Authorized [id number] Authorized 08/10/2023 08/09/2024 1 1 ENT RECORDS SPECIALIST * MRI/CAT/PET Scan (Routine) - Authorized Specialty Diagnoses / Procedures Referred By Contac t Referred To Contact Radiology Diagnoses Primary Osteoarthritis Knee Left Procedures CT Knee Left without IV Contrast AR CT LWR EXT WO CNTRST Juventino Downey M.D. [address] [place] [address] [facility] Region Referral ID Status Reason Start Date Expiration Date V isits Requested Visits Authorized [id number] Authorized 08/10/2023 08/09/2024 1 1 ENT RECORDS SPECIALIST * Outpatient (Routine) - Authorized Specialty Diagnoses / Procedures Referred By Contac t Referred To Contact Family Medicine Diagnoses Primary Osteoarthritis Knee Left Juventino Downey M.D. [address] [address] [facility] Region Referral ID Status Reason Start Date Expiration Date V isits Requested Visits Authorized [id number] Authorized 08/10/2023 02/08/2025 1 1 ENT RECORDS SPECIALIST * Outpatient (Routine) - Authorized Specialty Diagnoses / Procedures Referred By Contac t Referred To Contact Orthopedic Surgery Juventino Downey M.D. [address] [place] [phone] [facility] Region Referral ID Status Reason Start Date Expiration Date V isits Requested Visits Authorized [id number] Authorized 08/10/2023 02/08/2025 1 1 ENT RECORDS SPECIALIST * Outpatient (Routine) - Authorized Specialty Diagnoses / Procedures Referred By Contac t Referred To Contact Orthopedic Surgery Juventino Downey M.D. [address] [place] [phone] Yani Riley P.A.-C., P.A. [address], [place] [address] Referral ID Status Reason Start Date Expiration Date V isits Requested Visits Authorized [id number] Authorized 08/10/2023 02/08/2025 1 1 ENT RECORDS SPECIALIST * Outpatient (Routine) - Authorized Specialty Diagnoses / Procedures Referred By Contac t Referred To Contact Orthopedic Surgery Juventino Downey M.D. [address], [place] [address] [facility] Region Referral ID Status Reason Start Date Expiration Date V isits Requested Visits Authorized [id number] Authorized 08/10/2023 02/08/2025 1 1 ENT RECORDS SPECIALIST * Outpatient (Routine) - Closed Specialty Diagnoses / Procedures Referred By Xuan mcmahan Referred To Contact Diagnoses Primary Osteoarthritis Knee Left Procedures DX Knee Left 4+ Views Juventino Downey M.D. [address] [address] [facility] Region Referral ID Status Reason Start Date Expiration Date Visits Re quested Visits Authorized [id number] Closed 08/07/2023 08/06/2024 1 1 ENT RECORDS SPECIALIST Reason for Visit * Reason Comments Pre-op Exam Arthroplasty * Appointment Request (Routine) - Closed Specialty Diagnoses / Procedures Referred By Xuan mcmahan Referred To Contact Orthopedic Surgery Diagnoses Discuss Left and Right TKA, and right hip, and would like xrays. Procedures ORS EST Lorenza Cameron M.B.BAlexS. [address] [place] [address] Juventino Downey M.D. [address] [place] [address] Referral ID Status Reason Start Date Expiration Date Visits Re quested Visits Authorized [id number] Closed 08/10/2023 02/06/2024 1 1 Encounter Details Date Type Department Care Team (Latest Contact Info) Description 08/10/2023 1:00 PM STUDENT RECORDS SPECIALIST Office Visit Department of Orthopedic Surgery in [place], [place] [address] [place] [address] Juventino Downey M.D. [address] [place] [phone] Primary Osteoarthritis Knee Left (Primary Dx); [...] Jaida Bloom L.P.N. - 08/10/2023 1:00 PM STUDENT RECORDS SPECIALIST Patient to be scheduled for left total knee arthroplasty with Dr. Downey. [facility] Knee Replacement Patient Education booklet was given and reviewed with patient verbalizing understanding of information. [facility] Medical Necessity form was completed and given [...] in right leg. Patient is followed at [place] for [facility]. Information was given and reviewed on Pre-operative teaching class at [facility]. Patient will call [facility] to confirm the pre-operative session they will attend. Patient does live alone andplans on going to a rehabilitation facility after surgery. ENT RECORDS SPECIALIST documented in this encounter Progress Notes * [...] as an inpatient and will need a custodial stay afterwards as [place] ENT RECORDS SPECIALIST documented in this encounter Plan of Treatment Upcoming Encounters Date Type Department Care Team (Late st Contact Info) Description 11/20/2023 1:30 PM CDT Appointment Department of Radiology in [place], [place] [address], [place] [phone] Juventino Downey M.D. [address] [place] [phone] 11/20/2023 2:30 PM CDT Office Visit Department of Family Medicine, [facility], in [place], [place] [address] [place] [address] Yaa Montoya APRN, C.N.P., D.N.P. [address] [phone] 12/16/2023 1:45 PM CDT Office Visit Department of Orthopedic Surgery in [place], [place] [address] [address] Brendan Porter P.A.-C. [address] [phone] 01/11/2024 1:00 PM CDT Appointment Department of Radiology in [place], [place] [address] [address] Juventino Downey M.D. [address] [address] 01/11/2024 1:45 PM CDT Office Visit Department of Orthopedic Surgery in [place], [place] [address] [address] Juventino Downey M.D. [address] [phone] Scheduled Orders Name Type Priority Associated Diagnoses [...] Post Op (clinic) Outpatient Referral Routine Expected: 02/24/2024, Expires: 03/02/2024 Orthopedic Surgery Post Op (clinic) Outpatient Referral Routine Expected: 11/24/2023, Expires: 02/10/2024 Primary Care - [facility] consult (clinic) Outpatient Referral Routine Primary Osteoarthritis Knee Left Expected: 08/11/2023 (Approximate), Expires: 11/09/2024 documented as of this encounter Results * DX Knee Left 4+ Views (08/10/2023 12:19 PM STUDENT RECORDS SPECIALIST) Anatomical Region Laterality Modality Lower Extremity, Knee, Muscu loskeletal RST LOS, Musculoskeletal ARZ LOS, Muskuloskeletal FLA LOS Left Digit al Radiography Impressions 08/10/2023 12:57 PM STUDENT RECORDS SPECIALIST Severe tricompartmental osteoarthritic most prominent of the left medial compartment. Narrative 08/10/2023 12:57 PM STUDENT RECORDS SPECIALIST EXAM: DX KNEE LEFT 4+ VIEWS COMPARISON: Radiograph 12/22/2022 FINDINGS: No appreciable fracture. Tricompartmental osteoarthrosis most prominent in the medial compartments bilaterally with prominent wvfo-tc-qwqm articulation of the left knee with prominent osteophytic spurring. Moderate joint effusion. Prominent degenerative joint space narrowing of the right patella with mild lateral subluxation. Procedure Note Monty Hightower M.D. - 08/10/2023 EXAM: DX KNEE LEFT 4+ VIEWS COMPARISON: Radiograph 12/22/2022 FINDINGS: No appreciable fracture. Tricompartmental osteoarthrosis mostprominent in the medial compartments bilaterally with qsrxiumfyiynd-sz-exzr articulation of the left knee with prominent osteophyticspurring. Moderate joint effusion. Prominent degenerative joint space narrowing of the right patella with mild lateralsubluxation. IMPRESSION: Severe tricompartmental osteoarthritic most prominent of the left medialcompartment. 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
--- OUTSIDE RECORDS SUMMARY | 2023-11-12 12:55 | XMS_ITS | Referral Summary ---
Author Organization [facility] Address [address] [place] [address] Care Team Providers Care Supervisor [employer]crete [employer] Name Role Phone Elsewhere, Pcp Primary Care Provider Unavailabl e Source Comments Patient records contain information from all sites at [facility]. For routine questions regarding patient records, call [phone] during business hours, M-F 8:00 AM - 5:00 PM Central Time. Record requests for emergency care only can be directed to [phone] at any time.[facility] Encounters Date Type Department Care Team Description 11/03/2023 Clinical Communication Department of Orthopedic Surgery in [place], [place] [address] [place] [phone] Juventino Downey M.D. Appt Request 09/11/2023 2:29 PM CDT - 09/11/2023 11:59 PM CDT Hospital Encounter Department of Radiology in [place], [place] [address] [place] [phone] Juventino Downey M.D. Primary Osteoarthritis Hip Right Discharge Disposition: Home or Self Care 09/10/2023 Orders Only Department of Orthopedic Surgery in [place], [place] [address] [place] [phone] Juventino Downey M.D. Primary Osteoarthritis Hip Right (Primary Dx) 09/10/2023 Clinical Communication Department of Orthopedic Surgery in [place], [place] [address] [place] [phone] Perkinson, Juventino G, M.D. Order Request from Last 3 Months Allergies No known [...] Body Mass Index 31.84 04/27/2014 2:13 PM FINAL INSTALLER INSPECTOR Plan of Treatment Upcoming Encounters Date Type Department Care Team (Late st Contact Info) Description 11/20/2023 1:30 PM CDT Appointment Department of Radiology in [place], [place] [address] [phone] Juventnio Downey M.D. [address] [phone] 11/20/2023 2:30 PM CDT Office Visit Department of Family Medicine, [facility], in [place], [place] [address] [address] Yaa Montoya APRN, C.N.P., D.N.P. [address] [phone] 12/16/2023 1:45 PM CDT Office Visit Department of Orthopedic Surgery in [place], [place] [address] [address] Brendan Porter P.A.-C. [address] [phone] 01/11/2024 1:00 PM CDT Appointment Department of Radiology in [place], [place] [address], [place] [phone] Juventino Downey M.D. [address] [phone] 01/11/2024 1:45 PM CDT Office Visit Department of Orthopedic Surgery in [place], [place] [address] [place] [phone] Juventino Downey M.D. [address] [place] [phone] Procedures Procedure Name Priority Date/Time Associated Diagnosis Comments FL MAJOR JOINT ASPIRATION AND OR INJECTION RIGHT RAD - Routine (most inpatients and all outpatients) 09/11/2023 3:18 PM CDT Primary Osteoarthritis Hip Right EXTI BASIC METABOLIC PANEL, S/P Routine 08/13/2020 4:50 AM FINAL INSTALLER INSPECTOR from Last 3 Months or Most Recently [...] medications. Patient Education provided by a care retail team leader. Ready to learn, no apparent [...] medications. Patient Education provided by a care retail team leader. Ready tolearn, no apparent learning barriers were identified. Post-procedure careexplained; patient expressed understanding of the content. IMPRESSION: Successful fluoroscopic-guided therapeutic injection of the right hipjoint. Juventino SIMPSONG FLUOROSCOPY P ROCEDURES from Last 3 Months or Most Recently Relevant to Health Maintenance Care Teams Supervisor Concrete Pipe Plant Relationship Specialty Start Date End Date Elsewhere, Pcp PCP - General 09/29/21
--- OUTSIDE RECORDS SUMMARY | 2023-11-12 12:55 | XMS_ITS | Encounter Summary ---
Author Organization [facility] Address [address] [place] [address] Care Team Providers Care Public Health Informatician Name Role Phone Elsewhere, Pcp Primary Care Provider Unavailabl e Reason for Referral * Outpatient (Routine) - Closed Specialty Diagnoses / Procedures Referred By Keyshawnac t Referred To Contact Diagnoses Primary Osteoarthritis Hip Right Procedures FL Major Joint Aspiration And Or Injection Right LA ARTHCS ASP/INJ MJR JT WO US LA FLUORO GUIDE NDL PLC Juventino Downey M.D. [address] [address] [facility] Region Referral ID Status Reason Start Date Expiration Date Visits Re quested Visits Authorized [id number] Closed 09/10/2023 09/09/2024 1 1 Reason for Visit * Outpatient (Routine) - Closed Specialty Diagnoses / Procedures Referred By Contac t Referred To Contact Diagnoses Primary Osteoarthritis Hip Right Procedures FL Major Joint Aspiration And Or Injection Right LA ARTHCS ASP/INJ MJR JT WO US LA FLUORO GUIDE NDL PLC Juventino Downey M.D. [address], [place] [address] [facility] Region Referral ID Status Reason Start Date Expiration Date Visits Re quested Visits Authorized [id number] Closed 09/10/2023 09/09/2024 1 1 Encounter Details Date Type Department Care Team (Latest Contact Info) Description 09/11/2023 2:29 PM CDT - 09/11/2023 11:59 PM CDT Hospital Encounter Department of Radiology in [place], [place] [address] [place] [address] Juventino Downey M.D. [address] [place] [address] Primary Osteoarthritis Hip Right Discharge [...] PM CDT Appointment Department of Radiology in [place], [place] [address] [place] [address] Juventino Downey M.D. [address] [address] 11/20/2023 2:30 PM CDT Office Visit Department of Family Medicine, [facility], in [place], [place] [address] [address] Yaa Montoya APRN C.N.P., D.N.P. [address] [address] 12/16/2023 1:45 PM CDT Office Visit Department of Orthopedic Surgery in [place], [place] [address] [place] [phone] Brendan Porter P.A.-C. [address] [phone] 01/11/2024 1:00 PM CDT Appointment Department of Radiology in [place], [place] [address] [place] [phone] Juventino Downey M.D. [address] [phone] 01/11/2024 1:45 PM CDT Office Visit Department of Orthopedic Surgery in [place], [place] [address] [address] Juventino Downey M.D. [address] [phone] documented as of this encounter Procedures Procedure [...] medications. Patient Education provided by a care stationary steam engineer. Ready to learn, no apparent learning barriers [...] medications. Patient Education provided by a care stationary steam engineer. Ready tolearn, no apparent learning barriers were [...] Total Score: 0 04/27/20 14 2:21 PM CHILD CARE WORKER documented as of this encounter Care Teams Public Health Informatician Relationship Specialty Start Date End Date Elsewhere, Pcp PCP - General 09/29/21 documented as of this encounter
--- OUTSIDE RECORDS SUMMARY | 2023-11-12 12:55 | XMS_ITS | Encounter Summary ---
Author Organization [facility] Address [address] [place] [address] Care Team Providers Care Marketing Strategy Analyst Name Role Phone Elsewhere, Pcp Primary Care Provider Unavailabl e Reason for Visit * Reason Onset Date Comments Appt Request 11/03/2023 Encounter Details Date Type Department Care Team (Late st Contact Info) Description 11/03/2023 Clinical Communication Department of Orthopedic Surgery in [place], [place] [address] [phone] Juventino Downey M.D. [address] [phone] Appt Request Social History Tobacco Use Types Packs/Day [...] encounter Miscellaneous Notes * Telephone Encounter - Savana Musa R.N. - 11/03/2023 3:55 PM CDT Called patient and discussed timing for a right hip joint injection with fluoroscopy. Informed patient the last right hip joint injection was on 09/11/23 and these can be repeated every [address] Downey may request patient to wait a few weeks after the left total knee replacement to have this injection. Patient verbalized understanding this information. documented in this encounter Plan of Treatment Upcoming Encounters Date Type Department Care Team (Late st Contact Info) Description 11/20/2023 1:30 PM CDT Appointment Department of Radiology in [place], [place] [address] [place] [phone] Juventino Downey M.D. [address] [phone] 11/20/2023 2:30 PM CDT Office Visit Department of Family Medicine, [facility], in [place], [place] [address] [address] Yaa Montoya, MERRITT, C.N.P., D.N.P. [address] [phone] 12/16/2023 1:45 PM CDT Office Visit Department of Orthopedic Surgery in [place], [place] [address] [address] Brendan Porter, PAlexAAlex-[place] [address] [phone] 01/11/2024 1:00 PM CDT Appointment Department of Radiology in [place], [place] [address] [phone] Juventino Downey M.D. [address] [phone] 01/11/2024 1:45 PM CDT Office Visit Department of Orthopedic Surgery in [place], [place] [address] [place] [address] Juventino Downey M.D. [address] [place] [address] documented as of this encounter Visit Diagnoses Not on filedocumented in this encounter Additional Health Concerns Assessment Noted Time PHQ-9 Depression Total Score: 0 04/27/20 14 2:21 PM SUPERVISOR SHIPPING documented as of this encounter Care Teams Marketing Strategy Analyst Relationship Specialty Start Date End Date Elsewhere, Pcp PCP - General 09/29/21 documented as of this encounter
--- OUTSIDE RECORDS SUMMARY | 2023-11-12 12:55 | XMS_ITS | Clinical Summary ---
Author Organization [facility] Address [place], [place] [address] Care Team Providers Care Cost Specialist Name Role Phone Sai Kuo MD Primary Care Provider [phone] Allergies No known active allergies Medications Medication [...] Department Care Team (Latest Contact Info) Description 11/20/2023 1:30 PM CDT Appointment [facility] [address] [place] [phone] 12/03/2023 11:22 AM CDT Hospital Encounter [facility] [address] [place] [address] Juventino Downey MD [address] [address] 12/03/2023 11:22 AM CDT - 12/03/2023 12:57 PM CDT Surgery [place] [phone] [place] [address] Juventino Downey MD [address] [address] ARTHROPLASTY KNEE ROBOTIC ASSISTED-LEFT Scheduled Procedures Name Priority Associated Diagnoses Date/Ti me ARTHROPLASTY KNEE ROBOTIC ASSISTED 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
--- OUTSIDE RECORDS SUMMARY | 2023-11-12 12:55 | XMS_ITS | Clinical Summary ---
Author Organization [facility] Address [address] [place] [address] Care Team Providers Care Direct Marketing Specialist Name Role Phone Elsewhere, Pcp Primary Care Provider Unavailabl e Source Comments Patient records contain information from all sites at [facility]. For routine questions regarding patient records, call [phone] during business hours, M-F 8:00 AM - 5:00 PM Central Time. Record requests for emergency care only can be directed to [phone] at any time.[facility] Allergies No known active allergies Medications [...] Clinical Communication Department of Orthopedic Surgery in [address] [phone] Juventino Downey M.D. Appt Request 09/11/2023 2:29 PM CDT - 09/11/2023 11:59 PM CDT Hospital Encounter Department of Radiology in [address] [phone] Juventino Downey M.D. Primary Osteoarthritis Hip Right Discharge Disposition: Home or Self Care 09/10/2023 Orders Only Department of Orthopedic Surgery in [address] [phone] Juventino Downey M.D. Primary Osteoarthritis Hip Right (Primary Dx) 09/10/2023 Clinical Communication Department of Orthopedic Surgery in [address] [phone] Juventino Downey M.D. Order Request from Last 3 Months Immunizations Name Administration [...] Body Mass Index 31.84 04/27/2014 2:13 PM WEBSPHERE MESSAGE BROKER DEVELOPER Plan of Treatment Upcoming Encounters Date Type Department Care Team (Late st Contact Info) Description 11/20/2023 1:30 PM CDT Appointment Department of Radiology in [place], [place] [address] [phone] Juventino Downey M.D. [address] [phone] 11/20/2023 2:30 PM CDT Office Visit Department of Family Medicine, [facility], in [place], [place] [address] [phone] Yaa Montoya APRN, C.N.P., D.N.P. [address] [phone] 12/16/2023 1:45 PM CDT Office Visit Department of Orthopedic Surgery in [place], [place] [address] [phone] Brendan Porter P.A.-C. [address] [phone] 01/11/2024 1:00 PM CDT Appointment Department of Radiology in [place], [place] [address] [place] [address] Juventino Downey M.D. [address] [place] [address] 01/11/2024 1:45 PM CDT Office Visit Department of Orthopedic Surgery in [place], [place] [address] [place] [address] Juventino Downey M.D. [address] [place] [address] Health Maintenance Due Date Last Done Comments [...] METABOLIC PANEL, S/P Routine 08/13/2020 4:50 AM WEBSPHERE MESSAGE BROKER DEVELOPER from Last 3 Months or Most Recently [...] Patient Education provided by a care steam cleaning machine operator. Ready to learn, no apparent learning barriers [...] Patient Education provided by a care steam cleaning machine operator. Ready tolearn, no apparent learning barriers were identified. Post-procedure careexplained; patient expressed understanding of the content. IMPRESSION: Successful fluoroscopic-guided therapeutic injection of the right hipjoint. Juventino Downey M.D. IMG FLUOROSCOPY P ROCEDURES from Last 3 Months or Most Recently Relevant to Health Maintenance Care Teams Direct Marketing Specialist Relationship Specialty Start Date End Date Elsewhere, Pcp PCP - General 09/29/21
--- OUTSIDE RECORDS SUMMARY | 2023-11-12 12:55 | XMS_ITS ---
Author Organization [facility] Address [address] [place] [address] Care Team Providers Care Relations Specialist Name Role Phone Unavailable Unavailable Unavailable Surgery Details Not on file Complications Check Surgery Details section. Procedure Estimated Blood Loss Check Surgery Details section. Procedure Findings Check Surgery Details section. Procedure Specimens Taken Check Surgery Details section.
--- OUTSIDE RECORDS SUMMARY | 2023-11-12 12:55 | XMS_ITS | Encounter Summary ---
Author Organization [facility] Address [address] [place] [address] Care Team Providers Care Sulfur Chloride Operator Name Role Phone Elsewhere, Pcp Primary Care Provider Unavailabl e Reason for Visit * Reason Onset Date Comments SURGERY DATE 08/10/2023 Encounter Details Date Type Department Care Team (Late Contact Info) Description 08/10/2023 Clinical Communication Department of Orthopedic Surgery in [place], [place] [address] [phone] Juventino Downey M.D. [address] [phone] SURGERY DATE Social History Tobacco Use Types [...] PM CDT Appointment Department of Radiology in [place], [place] [address] [phone] Juventino Downey M.D. [address] [phone] 11/20/2023 2:30 PM CDT Office Visit Department of Family Medicine, [facility], in [place], [place] [address] [place] [phone] Yaa Montoya APRN C.N.P., D.N.P. [address] [phone] 12/16/2023 1:45 PM CDT Office Visit Department of Orthopedic Surgery in [place], [place] [address] [place] [phone] Brendan Porter P.A.-C. [address] [phone] 01/11/2024 1:00 PM CDT Appointment Department of Radiology in [place], [place] [address] [place] [phone] Juventino Downey M.D. [address] [phone] 01/11/2024 1:45 PM CDT Office Visit Department of Orthopedic Surgery in [place], [place] [address] [phone] Juventino Downey M.D. [address] [phone] documented as of this encounter Visit Diagnoses Not on filedocumented in this encounter Additional Health Concerns Assessment Noted Time PHQ-9 Depression Total Score: 0 04/27/20 14 2:21 PM MIGRATION AGENT documented as of this encounter Care Teams Sulfur Chloride Operator Relationship Specialty Start Date End Date Elsewhere, Pcp PCP - General 09/29/21 documented as of this encounter
--- OUTSIDE RECORDS SUMMARY | 2023-11-12 12:55 | XMS_ITS | Encounter Summary ---
Author Organization [facility] Address [address] [place] [address] Care Team Providers Care Lease Attendant Name Role Phone Elsewhere, Pcp Primary Care Provider Unavailabl e Reason for Referral * Outpatient (Routine) - Closed Specialty Diagnoses / Procedures Referred By Xuan t Referred To Contact Diagnoses Primary Osteoarthritis Hip Right Procedures FL Major Joint Aspiration And Or Injection Right VA ARTHCS ASP/INJ MJR JT WO US VA FLUORO GUIDE [facility] Juventino Downey M.D. [address] [place] [phone] [facility] Region Referral ID Status Reason Start Date Expiration Date Visits Re quested Visits Authorized [id number] Closed 09/10/2023 09/09/2024 1 1 Encounter Details Date Type Department Care Team (Late st Contact Info) Description 09/10/2023 Orders Only Department of Orthopedic Surgery in [place], [place] [address] [place] [phone] Juventino Downey M.D. [address] [place] [phone] Primary Osteoarthritis Hip Right (Primary [...] PM CDT Appointment Department of Radiology in [place], [place] [address] [phone] Juventino Downey M.D. [address] [phone] 11/20/2023 2:30 PM CDT Office Visit Department of Family Medicine, [facility], in [place], [place] [address] [phone] Yaa Montoya, MERRITT, C.N.P., D.N.P. [address] [phone] 12/16/2023 1:45 PM CDT Office Visit Department of Orthopedic Surgery in [place], [place] [address] [phone] Brendan Porter, PAlexAAlex-[place] [address] [phone] 01/11/2024 1:00 PM CDT Appointment Department of Radiology in [place], [place] [address] [phone] Juventino Downey M.D. [address] [phone] 01/11/2024 1:45 PM CDT Office Visit Department of Orthopedic Surgery in [place], [place] [address] [place] [address] Juventino Downey M.D. [address] [place] [phone] documented as of this encounter Results * [...] medications. Patient Education provided by a care steamfitter. Ready to learn, no apparent learning barriers [...] medications. Patient Education provided by a care steamfitter. Ready tolearn, no apparent learning barriers were [...] Total Score: 0 04/27/20 14 2:21 PM PEDIATRIC CLINICAL DIETICIAN documented as of this encounter Care Teams Lease Attendant Relationship Specialty Start Date End Date Elsewhere, Pcp PCP - General 09/29/21 documented as of this encounter
--- NOTE | 2023-11-12 14:50 | ED_ITS ---
HPI - General Adult General Date Seen: 11/12/23 Chief complaint: Skin/Abscess/Foreign Body Stated complaint: LT foot skin infection, pain Time Seen by Provider: 11/12/23 12:16 Source: patient, RN notes reviewed and old records reviewed Mode of arrival: ambulatory Limitations: no limitations History of Present Illness HPI narrative: Patient is an 78-year-old who was seen here few weeks ago with a cellulitis on his left foot. Treated with Bactrim and Keflex. He comes in today because he says a few days ago his foot was sore again, and he feels like maybe it was little bit red although it is better now. He is scheduled for knee replacement in a couple of weeks, so he want to make sure that it was not getting reinfected. He did have athlete's foot diagnosed at the same time and he has been using an antifungal. He has not had fevers or chills or other systemic complaints. He has not had pain or swelling in the calf or thigh, no erythema currently. He also requests a refill the pantoprazole that was prescribed when he saw Dr. Mendes here recently, he says that has really helped his reflux. Related Data Home Medications ?Medication ?Instructions ?Recorded ?Confirmed apixaban 5 mg tablet (Eliquis) 5 mg PO BID 01/03/22 10/17/23 hydrochlorothiazide 25 mg tablet 25 mg PO QAM 01/03/22 10/17/23 lisinopril 40 mg tablet 40 mg PO QDAY 01/03/22 10/17/23 aspirin 81 mg tablet,delayed 81 mg PO DAILY 10/17/23 10/17/23 release (Adult Low Dose Aspirin) atorvastatin .ROUTE 10/17/23 tamsulosin 0.4 mg capsule (Flomax) 0.4 mg PO DAILY 10/17/23 10/17/23 Previous Rx's ?Medication ?Instructions ?Recorded terbinafine HCl 1 % topical cream 1 applic topical BID #30 grams 09/28/23 pantoprazole 20 mg tablet,delayed 20 mg PO DAILY #20 tabs 10/17/23 release (Protonix) tramadol 50 mg tablet 50 mg PO Q6H PRN pain #20 tabs 10/17/23 cephalexin 500 mg capsule 500 mg PO QID #28 caps 11/12/23 pantoprazole 20 mg tablet,delayed 20 mg PO DAILY #30 tabs 11/12/23 release Allergies Allergy/AdvReac Type Severity Reaction Status Date / Time No Known Allergies Allergy Verified 10/17/23 14:12 Review of Systems Status of ROS: Reports: 10 or more systems reviewed and unremarkable except as noted in History and below [facility] Medical History History of DVT (deep vein thrombosis) ?Z86.718 - Personal history of other venous thrombosis and embolism (ICD-10) Short of breath on exertion ?R06.02 - Shortness of breath (ICD-10) Pulmonary air embolism ?T79.0XXA - Air embolism (traumatic), initial encounter (ICD-10) Infection due to severe acute respiratory syndrome coronavirus 2 (SARS-CoV-2) ?U07.1 - COVID-19 (ICD-10) Hypertension ?I10 - Essential (primary) hypertension (ICD-10) Deep vein thrombosis (DVT) of right lower extremity ?I82.401 - Acute embolism and thrombosis of unspecified deep veins of right lower extremity (ICD-10) Bradycardia ?R00.1 - Bradycardia, unspecified (ICD-10) Atrial bigeminy ?I49.8 - Other specified cardiac arrhythmias (ICD-10) Social History Smoking Status: Former smoker Do you use any of these nicotine containing products: None Second hand tobacco smoke exposure: No How often do you have a drink containing alcohol: never How often do you have six or more drinks on one occasion: Never AUDIT-C Alcohol total score: 0 Non-prescribed substance use: denies use service: Yes Exam Narrative: Exam Narrative: Vital signs reviewed In general, alert, well-appearing elderly male. Extremities: Bilateral lower extremities are normal in appearance. He has a lidocaine patch on his left knee, there is no surrounding erythema or effusion. The left foot is normal, he does have just a little bit of fungal skin changes but no significant breaks in the skin. No erythema. Trace edema, no tenderness, warmth, deformity. Calf and upper leg are normal in appearance. Const: Vital Signs, click to edit/add: Vital Signs - 24 hr 11/12/23 12:16 11/12/23 12:55 Temperature 97.3 F L 97.3 F L Pulse Rate [Left P ulse Oximeter] 71 71 Respiratory Rate 18 18 Blood Pressure [Le ft Upper Arm] 143/81 H 143/81 H Pulse Oximetry 97 Oxygen Delivery Me thod Room Air Documenting provider has reviewed patient's vital signs: yes Course Course ED Course: Reviewed with him that at this time his foot looks pretty normal to me. I do not see any evidence of cellulitis. I can certainly understand his concern given his upcoming surgery. I refilled his pantoprazole, I did give him a prescription for Keflex, and told him that if he feels like he is developing redness or pain over the next few days he could certainly start that. If symptoms worsen despite treatment he should be seen again or if he has new symptoms such as fever, chills etcetera. Otherwise, if the foot remains as is I would recommend against treatment.. He is comfortable that plan. Continue antifungal. Vital Signs Vital signs: Initial Vital Signs Temperature 97.3 F L 11/12/23 12:16 Temperature Source Temporal Artery Scan 11/12/23 12:16 Pulse Rate 71 11/12/23 12:16 Pulse Rhythm Regular 11/12/23 12:16 Pulse Strength 3+ Normal 11/12/23 12:16 Respiratory Rate 18 11/12/23 12:16 Blood Pressure 143/81 H 11/12/23 12:16 Blood Pressure Mean 101 11/12/23 12:16 Blood Pressure Position Sitting 11/12/23 12:16 Pulse Oximetry 97 11/12/23 12:16 Oxygen Delivery Method Room Air 11/12/23 12:16 Vital Signs Temperature 97.3 F L 11/12/23 12:16 Pulse Rate 71 11/12/23 12:16 Respiratory Rate 18 11/12/23 12:16 Blood Pressure 143/81 H 11/12/23 12:16 Pulse Oximetry 97 11/12/23 12:16 Oxygen Delivery Method Room Air 11/12/23 12:16 Temperature 97.3 F L 11/12/23 12:55 Pulse Rate 71 11/12/23 12:55 Respiratory Rate 18 11/12/23 12:55 Blood Pressure 143/81 H 11/12/23 12:55 Pulse Oximetry 97 11/12/23 12:16 Oxygen Delivery Method Room Air 11/12/23 12:16 Discharge Plan Discharge Clinical Impression: Pain of foot Patient Disposition: Home, Self-Care Condition: Stable Additional Instructions: Continue your pantoprazole. I sent this to the pharmacy for you. Regarding your foot, today it looks normal. If you feel that it is getting more red or painful, I am sending a prescription for an antibiotic to the pharmacy for you. I would not start this today as I do not see any sign of infection today. If you feel it is getting worse, you can start that medication. If you continue to have redness and pain and it does not respond to that treatment you should be seen again. If you have more diffuse swelling in the leg, calf or thigh pain, fevers, chills, vomiting, you should be seen here again. Prescriptions: New pantoprazole 20 mg tablet,delayed release (DR/EC) 20 mg PO DAILY Qty: 30 2RF cephalexin 500 mg capsule 500 mg PO QID Qty: 28 0RF No Action hydrochlorothiazide 25 mg tablet 25 mg PO QAM Eliquis 5 mg tablet 5 mg PO BID lisinopril 40 mg tablet 40 mg PO QDAY atorvastatin .ROUTE tamsulosin [Flomax] 0.4 mg capsule 0.4 mg PO DAILY aspirin [Adult Low Dose Aspirin] 81 mg tablet,delayed release (DR/EC) 81 mg PO DAILY tramadol 50 mg tablet 50 mg PO Q6H PRN (Reason: pain) Qty: 20 0RF pantoprazole [Protonix] 20 mg tablet,delayed release (DR/EC) 20 mg PO DAILY Qty: 20 2RF terbinafine HCl 1 % cream 1 applic topical BID Qty: 30 0RF Follow Up/Referrals: Provider,Not a Local [Primary Care Provider] - Stand Alone Forms: [employer] Info Instructions
== END 2023-11-12 12:58 | disposition home or self-care (01) ==
PROVIDERS: Emergency Provider Emergency Medicine
DX: M79.672 Pain in left foot (principal)
CPT/HCPCS: 99283; 99284

== ENCOUNTER 2024-09-05 14:22 | Emergency (ER) | payer OTHER, MEDICARE, SELFPAY ==
--- OUTSIDE RECORDS SUMMARY | 2024-09-05 14:24 | XMS_ITS | Encounter Summary ---
Author Organization [facility] Address [address] [place] [address] Care Team Providers Care Community Living Coach Name Role Phone Elsewhere, Pcp Primary Care Provider Unavailabl e Reason for Visit * Reason Onset Date Comments Communication 08/09/2024 ORS Encounter Details Date Type Department Care Team (Latest Contact Info) Description 08/09/2024 Clinical Communication Department of Orthopedic Surgery in [place], [place] [address] [phone] Juventino Downey M.D. [address] [phone] Communication (ORS) Social History Tobacco Use Types Packs/Day Years Used Date Smoking Tobacco: Former Smokeless Tobacco: Never PHQ-2 Answer Date Recorded PHQ-2 Score 0 12/23/2023 Dental Answer Date Recorded Dental: Regular Dentist Unknown 09/27/19 21 Sex and Gender Information Value Date Recorded Sex Assigned at Not on file Legal Sex Male 3:38 AM CEMENT CONVEYOR OPERATOR Gender Identity Not on file Sexual Orientation Not on file documented as of this encounter Miscellaneous Notes * Telephone Encounter - Savana Musa R.N. - 08/10/2024 2:01 PM CEMENT CONVEYOR OPERATOR Called patient and informed him the disability parking application has been completed. Patient is requesting this to be mailed to the address on file. NT CONVEYOR OPERATOR * Telephone Encounter - Yani Riley P.A.-C., P.A. - 08/10/2024 1:37 PM CST Handicap parking sticker signed NT CONVEYOR OPERATOR documented in this encounter Plan of Treatment Not on file documented as of this encounter Visit Diagnoses Not on filedocumented in this encounter Additional Health Concerns Assessment Noted Time PHQ-9 Depression Total Score: 0 04/27/20 14 2:21 PM CEMENT CONVEYOR OPERATOR documented as of this encounter Care Teams Community Living Coach Relationship Specialty Start Date End Date Elsewhere, Pcp PCP - General Internal Medicine 01/28/24 documented as of this encounter
--- OUTSIDE RECORDS SUMMARY | 2024-09-05 14:25 | XMS_ITS | Clinical Summary ---
Author Organization [employer] [facility] Address [facility] [place] [address] Care Team Providers Care Materials Planner/Production Planner Name Role Phone Destini Cameron Primary Care Provider [phone] Allergies No known active allergies Medications apixaban (ELIQUIS) 5 mg tablet Take 5 mg by mouth two times daily. 05/25/20 23 Active atorvastatin (LIPITOR) 40 mg tablet Take 40 mg by mouth at bedtime. 08/21/19 23 Active finasteride (PROSCAR) 5 mg tablet Take 5 mg by mouth once daily in the morning. 07/03/19 24 Active hydroCHLOROthiazid e 12.5 mg tablet Take 1 Tablet by mouth once daily. 05/18/20 23 Active metoprolol succinate (TOPROL XL) 50 mg sustained-release tablet Take 0.5 Tablets by mouth once daily. 12/11/19 23 Active tamsulosin (FLOMAX) 0.4 mg capsule Take 0.4 mg by mouth once daily in the evening. 11/12/19 23 Active lidocaine 5 % topical patch Apply 1-3 Patches on dry, clean, hairless skin once daily if needed for Pain. APPLY ONE PATCH TO EACH KNEE AND TO SHOULDER TOPICALLY EVERY DAY NEEDED FOR UP TO 12 HOURS FOR PAIN Active lisinopriL (PRINIVIL; ZESTRIL) 40 mg tablet Take 40 mg by mouth once daily in the evening. Active pantoprazole (PROTONIX) 20 mg tablet Take 20 mg by mouth once daily if needed for GI Upset. Active terbinafine (LAMISIL) 1 % cream Apply 1 Application topically to affected area(s) 2 times daily if needed. Active polyethylene glycol 400 (BLINK TEARS OPHT) Place 1-2 Drops into both eyes each time if needed. Active aspirin (ECOTRIN) 81 mg enteric coated tablet Take 81 mg by mouth once daily in the evening. Active sennosides-docusat e (SENOKOT S) (8.6-50 mg) tabletIndications: Primary localized osteoarthritis of left knee Take 1 Tablet by mouth two times daily. 40 Tablet 01/04/20 24 Active acetaminophen (TYLENOL EXTRA STRGTH) 500 mg tabletIndications: Primary localized osteoarthritis of left knee Take 2 Tablets (1,000 mg) by mouth every 6 hours. Max acetaminophen dose: 4000mg in 24 hrs. 200 Tablet 01/04/20 24 Active oxyCODONE (ROXICODONE) 5 mg immediate release tabletIndications: Primary localized osteoarthritis of left knee Take 1 Tablet (5 mg) by mouth every 6 hours if needed for Pain (For moderate to severe pain and anticipation of activity. Hold if sedated.). 10 Tablet 01/04/20 24 Active Active Problems Problem Noted Date Diagnosed Date Primary localized osteoarthritis of left knee Allergic rhinitis 12/22/2020 Cataract 12/22/2020 Constipation 12/22/2020 Diaphragmatic hernia 12/22/2020 Gastroesophageal reflux disease 12/22/2020 Gout 12/22/2020 Hypertrophy of prostate with urinary obstruction and other lower urinary tract symptoms (LUTS) 12/22/2020 Obesity 12/22/2020 Obstructive sleep apnea syndrome 12/22/2020 Osteoarthritis 12/22/2020 Overview (12/22/2020): Aug 30, 2012 Entered By: VALERY BRITO Comment: S/P left total hip in 2005. Other and unspecified hyperlipidemia 12/22/2020 Thrombosed external hemorrhoids 12/22/2020 Hypertension 12/07/2009 Overview (12/22/2020): HTN [Hypertension] Encounters Date Type Department Care Team Description 08/03/2024 11:37 AM RAYMOND MILL OPERATOR - 08/03/2024 11:59 PM RAYMOND MILL OPERATOR Hospital Encounter [facility] [address] [place] [address] Destini Cameron MBBS Encounter for other specified special examinations 08/03/2024 Travel 08/02/2024 Telephone [facility] [address] [place] [address] [employer] from Last 3 Months Social History Tobacco Use Types Packs/Day Years Used Date Smoking Tobacco: Former Cigarettes 0.8 4 Tobacco Cessation:Counseling Given: Not Answered Alcohol Use Standard Drinks/Week Comments Not Asked 0 (1 standard drink = 0.6 oz pur e alcohol) wine occasionally Social Connections Answer Date Recorded Do you often feel lonely or isolated from those around you? 0 12/31/2023 Financial Resource Strain Answer Date R ecorded Difficulty of Paying Living Expenses 3 12/31/2023 Difficulty of Paying Living Expenses Not on file 12/31/2023 Food Insecurity Answer Date Recorded Do you worry your food will run out before you are able to buy more? 1 12/31/2023 Transportation Needs Answer Date Record ed Does lack of transportation keep you from medica l appointments? 1 12/31/2023 Does lack of transportation keep you from work, meetings or getting things that you need? 1 12/31/2023 Housing Stability Answer Date Recorded What is your housing situation today? 1 12/31/2023 Interpersonal Safety Answer Date Record ed Are you being hit, kicked, p ushed or yelled at (see row info)? No 12/31/2023 Interpersonal Safety Abuse 12 - 18 Not on file 12/31/2023 Interpersonal Safety Ambulatory Vulnerability No t on file 12/31/2023 Utilities Answer Date Recorded Do you have trouble paying f or utilities (for example, heat, electricity, water, phone)? 1 12/31/2023 Sex and Gender Information Value Date Recorded Sex Assigned at Not on file Legal Sex Male 7:01 AM RAYMOND MILL OPERATOR Gender Identity Not on file Sexual Orientation Not on file Obstetrics History Last Filed Vital Signs Vital Sign Reading Time Taken Comments Blood Pressure 138/60 01/04/2024 8:15 AM CDT Pulse 75 01/04/2024 8:03 AM CDT Temperature 36.9 C (98.4 F) 01/04/2024 8:03 AM CDT Respiratory Rate 18 01/04/2024 8:03 AM CDT Oxygen Saturation 96% 01/04/2024 8:03 AM CDT Inhaled Oxygen Concentration - - Weight 107.5 kg (237 lb 1.6 oz) 12/31/2023 7:05 AM CDT Height 182.9 cm (6' 0.01) 12/04/2023 7:29 AM CD T Body Mass Index 32.15 12/04/2023 7:29 AM CDT Plan of Treatment Health Maintenance Due Date Last Done Comments Tdap 08/31/1954 Depression screening for age 12+ 1955 BMI (ht and wt on same day) for age 18+ 08/31/1961 Tetanus booster 1963 Pneumococcal series for age 50+ (1 of 1 - PCV) 08/31/1993 Zoster (shingles) series for age 50+ (1 of 2) 08/31/1993 RSV vaccine for adults or pr egnancy (1 - 1-dose 75+ series) 08/31/2018 Influenza Vaccine (#1) 2024 COVID-19 vaccine series ( season) 2024 03/15/2024, 03/13/2023, 06/13/2022 Medical Devices Implanted Type Area Academic Department Chair Device Identifier Shelf Expiration Date Model / Serial / Lot Insert Tib Sz 6 10mm Knee X3 Condylar Stabilizing Triathlon - [id number] Implanted:Qty: 1 on 12/31/2023 by Juventino Downey MD at [facility] Left: Knee [employer] 05/05/2028 [id number]-G-[id number] / / [id number] Fem Lt 5 Triathlon Beaded W/Pa - [id number] Implanted:Qty: 1 on 12/31/2023 by Juventino Downey MD at [facility] Left: Knee [employer] 05/09/2028 [id number] / / [id number] Baseplate Tib Univ Sz 6 Triathlon Keeled Ingrowth Pors Tritan - [id number] Implanted:Qty: 1 on 12/31/2023 by Juventino Downey MD at [facility] Left: Knee [employer] 08/15/2028 [id number] / / [id number] Patella [id number] Triathlon Tritanium Symmetrical Metal Backed - [id number] Implanted:Qty: 1 on 12/31/2023 by Juventino Downey MD at [facility] Left: Knee Time [employer] 04/27/2028 [id number] / / [id number] Explanted Type Area Academic Department Chair Device Identifier Shelf Expiration Date Model / Serial / Lot Pin Bone Fix [id number] - [id number] Explanted:Qty: 1 on 12/31/2023 by Juventino Downey MD at [facility] Left: Knee Swank 08/12/2028 [id number] / / [id number] Pin Bone Fix [id number] Strl - [id number] Explanted:Qty: 1 on 12/31/2023 by Juventino Downey MD at [facility] Left: Knee [employer]ank 08/19/2028 [id number] / / [id number] Procedures Procedure Name Priority Date/Time Associated Diagnosis Comments NM CARDIAC MPI STRESS TEST Routine 08/03/2024 2:10 PM RAYMOND MILL OPERATOR Encounter for other specified special examinations SCAN-STRESS TEST 08/03/2024 12:0 0 AM RAYMOND MILL OPERATOR from Last 3 Months Results * NM CARDIAC MPI STRESS TEST (08/03/2024 2:10 PM RAYMOND MILL OPERATOR) Anatomical Region Laterality Modality HEART Nuclear Medicine , Other 08/03/2024 12:0 6 PM RAYMOND MILL OPERATOR Narrative 08/03/2024 4:30 PM RAYMOND MILL OPERATOR Toll -free: [phone] [facility] MYOCARDIAL PERFUSION IMAGING REPORT REST/STRESS SINGLE ISOTOPE GATED SPECT IMAGING Patient Name: SABRINA VELEZ Gender: M Height: 72 in Weight: 237 lb Study Date: 08/03/2024 12:06:44 PM BSA: 2.29 m : 1945 78 years BMI: 32.14 kg/m Ord. Prov.: DESTINI CAMERON Monitoring Prov.: Liz Owen Performing Site [facility] Cardiac Risk Factors: Hypertension and hypercholesterolemia. Other Symptomatology: DONALD. Cardiac History: Abnormal ECG. Beta karina/calcium channel karina/nitrate taken today: Yes. Caffeine/methylxanthine taken within 12 hrs: No. Chest pain/discomfort at baseline: No. IMPRESSION 1. Myocardial perfusion was normal. 2. Adequate pharmacologic stress test with regadenoson. 3. The pharmacologic stress ECG was negative for ischemia. 4. Left ventricular cavity size was mildly enlarged (resting EDV 158 ml). 5. Overall left ventricular systolic function was normal without wall motion abnormalities. The post stress LVEF was calculated to be 60 %. 6. There were no prior studies available for comparison. STRESS MPI PROCEDURE The patient was studied utilizing a same day rest/stress protocol. Myocardial perfusion imaging was performed at rest, 20 minutes following the intravenous injection of 10.8 mCi of 99mTc sestamibi. 30 seconds after the 15 second IV regadenoson injection, the patient was injected via IV with 36.0 mCi of 99mTc sestamibi. Gated post-stress tomographic imaging , horizontal long and vertical long axis views and tomographic slices were generated. - Pharmacologic stress testing was performed with an IV regadenoson dose of 0.4 mg. - No low level exercise was performed. - Resting heart rate was 61 bpm, peak heart rate was 75 bpm. - Resting blood pressure was 148 mmHg/75 mmHg; peak blood pressure was 148 mmHg/75 mmHg. - Patient did not develop significant symptoms. FINDINGS Baseline ECG - The baseline ECG was normal with sinus rhythm and normal conduction. - There were no repolarization abnormalities. - There was no atrial or ventricular ectopy. Stress ECG - The pharmacologic stress ECG was negative for ischemia. - There were no stress induced arrhythmias. - Repolarization was normal. Imaging - The overall quality of the study was excellent with mild soft tissue attenuation on rest and stress studies. Computerized motion correction was not applied. - SPECT perfusion images were normal without evidence of ischemia or infarction. - Computer processed gated imaging revealed mildly enlarged left ventricular size with a calculated LVEF of 60 %. (Lab normals: LVEF >50%, LV Size <150 ml). - There was normal post-stress myocardial thickening and wall motion. - No right ventricular abnormalities were identified. - There was no evidence of abnormal lung or extracardiac activity. - Risk/extent of ischemia per ACC Noninvasive Risk Stratification Guideline: LOW RISK. This study was interpreted and electronically signed by Mainor Sanchez MD on 08/03/2024 4:30:15 PM. Final Procedure Note Mainor Sanchez MD - 08/03/2024 Toll -free: [phone] [facility] MYOCARDIAL PERFUSION IMAGING REPORT REST/STRESS SINGLE ISOTOPE GATED SPECT IMAGING Patient Name: SABRINA VELEZ Gender: Ronda Height: 72 in Weight: 237 lb Study Date: 08/03/2024 12:06:44 PM BSA: 2.29 m : 1945 78 years BMI: 32.14 kg/m Ord. Prov.: DESTINI CAMERON Monitoring Prov.: Liz Owen Performing Site [facility] Cardiac Risk Factors: Hypertension and hypercholesterolemia. Other Symptomatology: DONALD. Cardiac History: Abnormal ECG. Beta karina/calcium channel karina/nitrate taken today: Yes. Caffeine/methylxanthine taken within 12 hrs: No. Chest pain/discomfort at baseline: No. IMPRESSION 1. Myocardial perfusion was normal. 2. Adequate pharmacologic stress test with regadenoson. 3. The pharmacologic stress ECG was negative for ischemia. 4. Left ventricular cavity size was mildly enlarged (resting EDV 158ml). 5. Overall left ventricular systolic function was normal without wallmotion abnormalities. The post stress LVEF was calculated to be 60 %. 6. There were no prior studies available for comparison. STRESS MPI PROCEDURE The patient was studied utilizing a same day rest/stress protocol.Myocardial perfusion imaging was performed at rest, 20 minutes followingthe intravenous injection of 10.8 mCi of 99mTc sestamibi. 30 seconds afterthe 15 second IV regadenoson injection, the patient was injected via IVwith 36.0 mCi of 99mTc sestamibi. Gated post-stress tomographic imaging ,horizontal long and vertical long axis views and tomographic slices weregenerated. - Pharmacologic stress testing was performed with an IV regadenoson doseof 0.4 mg. - No low level exercise was performed. - Resting heart rate was 61 bpm, peak heart rate was 75 bpm. - Resting blood pressure was 148 mmHg/75 mmHg; peak blood pressure feb486 mmHg/75 mmHg. - Patient did not develop significant symptoms. FINDINGS Baseline ECG - The baseline ECG was normal with sinus rhythm and normal conduction. - There were no repolarization abnormalities. - There was no atrial or ventricular ectopy. Stress ECG - The pharmacologic stress ECG was negative for ischemia. - There were no stress induced arrhythmias. - Repolarization was normal. Imaging - The overall quality of the study was excellent with mild soft tissue attenuation on rest and stress studies. Computerized motion correction wasnot applied. - SPECT perfusion images were normal without evidence of ischemia orinfarction. - Computer processed gated imaging revealed mildly enlarged leftventricular size with a calculated LVEF of 60 %. (Lab normals: LVEF >50%, LV Size <150ml). - There was normal post-stress myocardial thickening and wall motion. - No right ventricular abnormalities were identified. - There was no evidence of abnormal lung or extracardiac activity. - Risk/extent of ischemia per ACC Noninvasive Risk StratificationGuideline: LOW RISK. This study was interpreted and electronically signed by Alissa Mcdonald 08/03/2024 4:30:15 PM. Final Destini FAROOQ [place] Final Result * SCAN-STRESS TEST (08/03/2024 12:00 AM RAYMOND MILL OPERATOR) Anatomical Region Laterality Modality Nuclear Medicine , Other Narrative 08/03/2024 12:00 AM RAYMOND MILL OPERATOR Ordered by an unspecified provider. Other Clinical Staff OTHER Final Resul t from Last 3 Months Insurance [facility] MEDICARE ADVANTAGE MR [facility] MEDICARE ADVANTAGE MR [facility] MEDICARE PART A HB ONLY Advance Directives * Full Code (Latest Code Status on File) Date Activated Date Inactivated Comments 12/31/2023 6:04 AM 01/04/2024 12:59 PM Question Answer Comments Code Status Discussion: Not Discussed Care Teams Materials Planner/Production Planner Relationship Specialty Start Date End Date [place] [address] PCP - General Internal Medicine 12/11/23
--- OUTSIDE RECORDS SUMMARY | 2024-09-05 14:25 | XMS_ITS | Clinical Summary ---
Author Organization [facility] Address [address] [place] [address] Care Team Providers Care Water Inspector Name Role Phone Elsewhere, Pcp Primary Care Provider Unavailabl e Source Comments Patient records contain information from all sites at [facility]. For routine questions regarding patient records, call [phone] during business hours, M-F 8:00 AM - 5:00 PM Central Time. Record requests for emergency care only can be directed to [phone] at any time.[facility] Allergies No known active allergies Medications erythromycin (ROMYCIN) 5 mg/gram (0.5 %) ophthalmic ointment Apply 1 cm to both eyes at bedtime. 4 Active oxyCODONE (Oxy IR) 5 mg immediate release capsule Take 5 mg by mouth every 6 (six) hours as needed for pain. Active acetaminophen (TylenoL) 500 mg tablet Take 2 tablets (1,000 mg total) by mouth every 6 (six) hours. 180 tablet 4 Active apixaban (Eliquis) 5 mg tablet Take 1 tablet (5 mg total) by mouth 2 (two) times a day. 60 tablet 4 Active aspirin [address] tablet Take 1 tablet (81 mg total) by mouth daily. 30 tablet 4 Active atorvastatin (Lipitor) 40 mg tablet Take 1 tablet (40 mg total) by mouth at bedtime. 30 tablet 4 Active diclofenac sodium (Voltaren) 1 % gel Apply 2 g topically 4 (four) times a day. Apply to affected area. 100 g 4 Active hydroCHLOROthia zide (HydroDiuril) 25 mg tablet Take 0.5 tablets (12.5 mg total) by mouth daily. 15 tablet 4 Active lisinopriL 40 mg tablet Take 1 tablet (40 mg total) by mouth daily. 30 tablet 4 Active metoprolol succinate (Toprol XL) 25 mg 24 hr tablet Take 1 tablet (25 mg total) by mouth daily. Do not crush or chew. 30 tablet 4 Active terbinafine (LamISIL) 1 % cream Apply 1 Application topically 2 (two) times a day as needed (rash). Apply to toes. 30 g 4 Active Active Problems Problem Noted Date Diagnosed Date Other Retention Of Urine 01/17/2024 Overview (01/17/2024): Hospital course after knee arthroplasty complicated by urine retention. Magana catheter was placed. He has had similar difficulties with other surgeries. Assessment & Plan (01/26/2024 3:51 PM CDT): No concerns Assessment & Plan (01/17/2024 7:18 PM CDT): Urology follow-up as scheduled. Prior to that, will discontinue catheter, check postvoid residuals, and straight cath PRN. Hypertensive Chronic Kidney Disease With Stage 1 Through Stage 4 Chronic Kidney Disease, Or Unspecified Chronic Kidney Disease 01/07/2024 Assessment & Plan (01/26/2024 3:50 PM CDT): Blood pressure normotensive ranging from 112-129 systolic and 63-71 diastolic. Continue care plan. Chronic Kidney Disease (CKD) , Stage 3a Glomerular Filtration Rate (GFR) 45 To 59 01/07/2024 Overview (01/26/2024): Lab Results Component Value Date CREATININE 1.17 01/13/2024 Assessment & Plan (01/07/2024 9:28 AM CDT): Most recent GFR 50. Arthroplasty Total Knee Replacement Status Post Left 01/06/2024 Overview (01/06/2024): He had robotic left total knee arthroplasty on 12/31/[address] Downey at [facility]. He is on aspirin and apixaban for blood clot prevention post op. Assessment & Plan (01/26/2024 3:46 PM CDT): Patient endorsed overall feeling good with pain well controlled. He continues aspirin and apixaban for blood loss prophylaxis. Last seen by Orthopedics on 01/15/24 and will be seen for follow-up with orthopedics on 02/15/2024. Assessment & Plan (01/17/2024 7:16 PM CDT): Pain is well controlled with acetaminophen and occasional oxycodone. He is working with and progressing in therapies. Assessment & Plan (01/06/2024 5:44 PM CDT): He is a short term resident at [facility] for therapy. Pain controlled. Dressing clean dry and intact. Constipation Slow Transit 01/06/2024 Overview (01/06/2024): He is complaining of constipation Assessment & Plan (01/26/2024 3:48 PM CDT): Denied constipation. Continue bowel regimen. Assessment & Plan (01/06/2024 5:56 PM CDT): MiraLAX and senna s given Other Specified Hearing Loss Bilateral Endarterectomy Carotid Status Post 12/23/2023 Overview (12/23/2023): Mar 13, 2023 Entered By: DESTINI JJ Comment: Rt CEA and bovine patch repair, 08/2022 Assessment & Plan (01/06/2024 5:57 PM CDT): On apixaban and aspirin. Hemorrhage Retinal Right 12/23/2023 Overview (12/23/2023): Aug 07, 2022 Entered By: DESTINI JJ Comment: right eye, jun 2022, sees local agricultural engineering technician Hyperlipidemia 12/23/2023 Overview (01/06/2024): On atorvastatin Assessment & Plan (01/26/2024 3:49 PM CDT): Continue care plan. 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 Continue tamsulosin and finasteride Assessment & Plan (01/06/2024 5:51 PM CDT): He has a magana catheter draining clear yellow urine. He has urinary retention. He will see urology Osteoarthritis 12/22/2020 Overview (12/23/2023): Aug 30, 2012 Entered By: VALERY BRITO Comment: S/P left total hip in 2005. Aug 30, 2012 Entered By: VALERY BRITO Comment: S/P left total hip in 2005. Assessment & Plan (01/26/2024 3:51 PM CDT): Pain well controlled with current pain regimen. Apnea Sleep Obstructive 04/27/2014 Overview (12/23/2023): treated with CPAP autotitration between 8 and 20 cm of water. Resolved Problems Problem Noted Date Diagnosed Date Resolved Date Occlusion And Stenosis Right Carotid Artery 12/23/2023 12/23/2023 Benign Prostatic Hyperplasia Hypertrophy With Obstruction 12/23/2023 12/23/2023 Hypertension Essential Primary 12/23/2023 01/07/2024 Overview (01/06/2024): Managed on HCTZ, lisinopril, metoprolol and aspirin Assessment & Plan (01/06/2024 5:48 PM CDT): He is normotensive on current plan Hypertension 12/07/2009 01/07/2024 Overview (10/28/2016): HTN [Hypertension] Encounters Date Type Department Care Team Description 08/09/2024 Clinical Communication Department of Orthopedic Surgery in [place], [place] [address], [place] [address] Juventino Downey M.D. Communication (ORS) from Last 3 Months Immunizations Immunization Administration Dates Next Due HZV (ZOSTAVAX) 10/10/2011 Influenza high dose QV(65 ye ars or older) (PF) 03/13/2023 Influenza, Quadrivalent, Adj uvanted, Preservative Free 03/25/2022 Influenza, Unspecified 04/06/2014,2012,03/29/2012,2010,02/26/2010,03/09/2009,06/16/2008,1 ,03/25/2006,03/31/2005 PCV13 05/12/2016 PPSV23 10/09/2014 Pneumococcal Conjugate(PCV), Unspecified 01/23/2022 Pneumococcal, Unspecified 08/06/2007 RZV (SHINGRIX) 03/13/2020,12/21/2019 SARS-COV-2 (COVID-19) - PFIZ ER (Discontinued)(12 years or older) 03/08/2021,08/03/2020,07/13/2020 Td (Adult), adsorbed 05/28/2006 Td Preservative Free (TENIVA C, DECAVAC) 03/26/2020,05/28/2006 Td, (Adult) Unspecified 06/17/2002 Tdap 12/15/2012 Tetanus Toxoid, Unspecified 08/02/2004 influenza trivalent high dos e (HD)(PF) 03/31/2017,03/25/2016,03/05/2015 influenza trivalent vaccine (6 months and older)(PF) 03/01/2019,04/01/2018 influenza vaccine quad (FLUZONE/FLUARIX) (6 months and [...] on file Legal Sex Male 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 Gender Identity Not on file Sexual Orientation Not on file Last Filed Vital Signs Vital Sign Reading Time Taken Comments Blood Pressure 117/58 05/31/2024 10:45 AM CIVIL PREPAREDNESS TRAINING OFFICER Pulse 67 05/31/2024 10:45 AM CIVIL PREPAREDNESS TRAINING OFFICER Temperature 36.6 C (97.9 F) 05/31/2024 10:30 AM CIVIL PREPAREDNESS TRAINING OFFICER Respiratory Rate 18 01/26/2024 8:10 AM CDT Oxygen Saturation 97% 05/31/2024 10:45 AM CIVIL PREPAREDNESS TRAINING OFFICER Inhaled Oxygen Concentration - - Weight 111 kg (244 lb 6.4 oz) 01/26/2024 8:10 AM CDT Height 183 cm (6' 0.05) 12/23/2023 12:42 PM CDT Body Mass Index 33.1 12/23/2023 12:42 PM CDT Plan of Treatment Health Maintenance Due Date Last Done Comments RSV vaccine - (32-36 weeks) or 60+ years (1 - 1-dose 75+ series) 08/31/2018 Depression Screening (Annual PHQ-2) 06/08/2024 Fall Risk Screen (Annual) 06/08/2024 COVID-19 Vaccine ( season) 2024 03/15/2024, 03/13/2023, 06/13/2022, Additional history exists Creatinine Level (Kidney Function Test) 01/12/2025 01/13/2024, 11/20/2023, 08/13/2020, Additional history exists Potassium Level 01/12/2025 01/13/2024, 11/06, 08/13/2020, Additional history exists Sodium Level 01/12/2025 01/13/2024, 11/06, 08/13/2020, Additional history exists Office Visit for Blood Pressure Check / Re-check 05/31/2025 05/31/2024 DTaP,Tdap,and Td Vaccines (3 - Td or Tdap) 03/26/2030 03/26/2020, 12/15/2012, 05/28/2006, Additional history exists Zoster Vaccines Completed 03/13/2020, 12/06, 10/10/2011 Pneumococcal vaccine (50+ years) Completed 01/23/2022, 05/12/2016, 10/09/2014, Additional history exists Influenza Vaccine Completed 03/15/2024, , 03/25/2022, Additional history exists IPV Vaccines Aged Out No longer eligi ble based on patient's age to complete this topic Medical Devices Implanted Type Area Supervisor Cell Operation Device Identifier Shelf Expiration Date Model / Serial / Lot Hip Implant Hip Implant Left: Hip Description:Around 2008 thro [facility] Knee Implant-2023 Implanted: by Juventino Downey M.D. (Quantity not on file) Knee Implant Left: Knee Osmar TRIATHLON / / Procedures Procedure Name Priority Date/Time Associated Diagnosis Comments BASIC METABOLIC PANEL, S/P Routine 11/20/2023 2:33 PM CDT Hypertension Essential Primary from Last 3 Months or Most Recently Relevant to Health Maintenance Results * (ABNORMAL) Basic Metabolic Panel (11/20/2023 2:33 PM CDT) Potassium, P 4.3 3.6 - 5.2 mmol/L 11/20/2023 3:00 PM CDT [facility] Sodium, P 139 135 - 145 mmol/L 11/20/2023 3:00 PM CDT [facility] Chloride, P 105 98 - 107 mmol/L 11/20/2023 3:00 PM CDT [facility] Bicarbonate, P 26 22 - 29 mmol/L 11/20/2023 3:01 PM CDT [facility] Anion Gap, P 8 7 - 15 11/20/2023 3:00 PM CDT [facility] BUN (Blood Urea Nitrogen), P 28(H) 8 - 24 mg/dL 11/20/2023 3:01 PM CDT [facility] Creatinine 1.42(H) 0.74 - 1.35 mg/dL 11/20/2023 3:01 PM CDT [facility] Estimated GFR (eGFR) 50(L) >=60 mL/min/BSA 11/20/2023 3:01 PM CDT OW[facility] Comment: Estimated GFR calculated using the 2020 CKD_EPI creatinine equation. Calcium, Total, P 9.2 8.8 - 10.2 mg/dL 11/20/2023 3:01 PM CDT [facility] Glucose, P CANCELED mg/dL 11/20/2023 2:37 PM CDT OW[facility] Comment: Duplicate test request. Result canceled by the ancillary. Blood (Blood, Venous) 11/20/2023 2:33 PM CDT 11/20/2023 2:34 PM CDT [facility] Millie Montoya APRN, C.N.P., D.N.P. LAB BLOO D ADD-ON Final Result [facility] [address] [place] [address], [facility] in [place] [address] [place] [address] from Last 3 Months or Most Recently Relevant to Health Maintenance Insurance [facility] Advance Directives For more information, please contact: [phone] * Full Code (Latest Code Status on File) Date Activated Date Inactivated Comments 01/05/2024 5:19 PM Question Answer Comments Full Code: Discussed Care Teams Water Inspector Relationship Specialty Start Date End Date Elsewhere, Pcp PCP - General Internal Medicine 01/28/24
[2024-09-05 15:01] VITALS: BP 88/57; PULSE 77; RESP 18; TEMP 36.4; O2SAT 96; BMI 32.5
--- NOTE | 2024-09-05 16:00 | CRLHL7_ITS ---
For Patients: As a result of the Century Cures Act, medical imaging exams and procedure reports are released immediately into your electronic medical record. You may view this report before your referring provider. If you have questions, please contact your health care provider. INDICATION: ABD PAIN, DISTENTION, DIARRHEA, TIRED. TECHNIQUE: CT abdomen and pelvis acquired with 100 cc Isovue 370 IV contrast. COMPARISON: None. FINDINGS: Lower chest: Unremarkable. Liver: Unremarkable. Gallbladder and bile ducts: Unremarkable. No stones or inflammation. No biliary dilatation. Pancreas: Unremarkable. No mass or inflammation. Spleen: Unremarkable. Normal in size. No masses. Adrenal glands: Unremarkable. No nodules. Kidneys: Redemonstrated left renal cyst. No suspicious masses, stones, or hydronephrosis. GI tract: There is dilatation of the small bowel to 6.7 cm without a discrete focal caliber transition point. There is also relatively small volume fluid extends throughout the large intestine into the rectosigmoid colon, compatible with the reported diarrhea state. Normal appendix. Vasculature: Abdominal aorta is normal in caliber. Mesenteric arteries are patent. Lymph nodes: No lymphadenopathy. Peritoneum/Abdominal Wall: Moderate bilateral fat containing inguinal hernias. No sign of mass or infiltration. No free air or significant free fluid. Pelvis: Prostatomegaly. Bones: Redemonstrated left total hip arthroplasty. Severe right hip joint arthrosis, worsened relative to prior IMPRESSION: Findings compatible with enterocolitis. There is moderate dilatation of the small bowel to 6.7 cm without a discrete bowel caliber transition point, likely reflecting an ileus secondary to infection or inflammation. Please note that all CT scans at this facility use dose modulation, iterative reconstruction, and/or weight-based dosing when appropriate to reduce radiation dose to as low as reasonably achievable. Dictated by Germán Olsen MD @ 09/05/2024 5:55:55 PM (Electronically Signed)
--- NOTE | 2024-09-05 16:26 | ED.GENADULT ---
HPI - General Adult General Date Seen: 09/05/24 Chief complaint: Abdominal Pain Stated complaint: Stomach pain, diarrhea, shortness of breath Time Seen by Provider: 09/05/24 15:55 History of Present Illness HPI narrative: Patient is an 79-year-old man who presents from home with abdominal pain and diarrhea. He says he was awaken from sleep at around 2:00 a.m. last night with severe diffuse abdominal pain followed by a nonbloody diarrhea which he says he has had every hour so since then. He is feeling fatigued and weak, he mentions shortness of breath to the nurse but he says it is not really that he short of breath he is just very tired. He has had nausea but no vomiting. He denies fevers. Denies prior abdominal surgeries. No recent antibiotics. Related Data Home Medications ?Medication ?Instructions ?Recorded ?Confirmed apixaban 5 mg tablet (Eliquis) 5 mg PO BID 01/03/22 09/05/24 hydrochlorothiazide 25 mg tablet 12.5 mg PO QAM 01/03/22 09/05/24 lisinopril 40 mg tablet 40 mg PO QDAY 01/03/22 09/05/24 aspirin 81 mg tablet,delayed 81 mg PO DAILY 10/17/23 09/05/24 release (Adult Low Dose Aspirin) atorvastatin .Route 10/17/23 tamsulosin 0.4 mg capsule (Flomax) 0.4 mg PO DAILY 10/17/23 10/17/23 Previous Rx's ?Medication ?Instructions ?Recorded terbinafine HCl 1 % topical cream 1 applic topical BID #30 grams 09/28/23 pantoprazole 20 mg tablet,delayed 20 mg PO DAILY #20 tabs 10/17/23 release (Protonix) tramadol 50 mg tablet 50 mg PO Q6H PRN pain #20 tabs 10/17/23 cephalexin 500 mg capsule 500 mg PO QID #28 caps 11/12/23 pantoprazole 20 mg tablet,delayed 20 mg PO DAILY #30 tabs 11/12/23 release Allergies Allergy/AdvReac Type Severity Reaction Status Date / Time No Known Allergies Allergy Verified 09/05/24 17:19 Review of Systems Status of ROS: Reports: 10 or more systems reviewed and unremarkable except as noted in History and below [facility] Medical History History of DVT (deep vein thrombosis) ?Z86.718 - Personal history of other venous thrombosis and embolism (ICD-10) Short of breath on exertion ?R06.02 - Shortness of breath (ICD-10) Pulmonary air embolism ?T79.0XXA - Air embolism (traumatic), initial encounter (ICD-10) Infection due to severe acute respiratory syndrome coronavirus 2 (SARS-CoV-2) ?U07.1 - COVID-19 (ICD-10) Hypertension ?I10 - Essential (primary) hypertension (ICD-10) Deep vein thrombosis (DVT) of right lower extremity ?I82.401 - Acute embolism and thrombosis of unspecified deep veins of right lower extremity (ICD-10) Bradycardia ?R00.1 - Bradycardia, unspecified (ICD-10) Atrial bigeminy ?I49.8 - Other specified cardiac arrhythmias (ICD-10) Social History Smoking Status: Former smoker Do you use any of these nicotine containing products: None Second hand tobacco smoke exposure: No How often do you have a drink containing alcohol: never How often do you have six or more drinks on one occasion: Never AUDIT-C Alcohol total score: 0 Non-prescribed substance use: denies use service: Yes Exam Narrative: Exam Narrative: Vital signs reviewed In general, alert, nontoxic Head: Normocephalic, atraumatic. Eyes: Sclera clear. Pupils equal and reactive. ENT: Mucous membranes moist. Neck: Supple without adenopathy. Heart: Regular rate and rhythm without murmur. Lungs: Clear. No increased work of breathing, crackles or wheezes. Abdomen: Abdomen is distended but soft, really nontender to palpation. No rebound rigidity or guarding. Extremities: Well perfused, pulses intact. No significant edema. Neurologic: Alert, conversant. Speech fluent, face symmetric. Moves all extremities equally. Skin: Warm, dry well perfused. Affect: Normal. Const: Vital Signs, click to edit/add: Vital Signs - 24 hr 09/05/24 15:01 09/05/24 17:26 Temperature 97.6 F Pulse Rate [Pulse Oximeter] 77 72 Respiratory Rate 18 18 Blood Pressure [Ri ght Upper Arm] 88/57 L 163/92 H Pulse Oximetry 96 99 Oxygen Delivery Me thod Room Air Room Air Course Course ED Course: Patient presents with abdominal pain and diarrhea, symptoms may be viral, rule out other causes such as colitis, C diff, obstruction, diverticulitis, Will give some fluids here and see if blood pressure responds. He is not febrile nor tachycardic, currently no triggers for sepsis. His IV blew a couple of times but he did get 600 mL of saline in. Blood pressure is improved to 160 3/92. Heart rate remains normal. Remains afebrile. Labs are all reviewed and are normal including lactate, CRP, metabolic panel, CBC. An EKG done here shows a sinus rhythm, occasional PVCs. No acute ST segment changes, unremarkable indices. CT scan by my review showed dilated fluid-filled loops of small bowel, but he does have air in the rectum. Radiology read this as an ileus related to nonspecific enteritis. Does not suggest bowel obstruction. His drinking liquids without difficulty here. Past a lot of gas and he feels significantly better now. Feels comfortable going home. Reviewed all of his results with him, reviewed that if he is feeling worse, having more significant pain, fevers, vomiting or other worsening he should come back. Otherwise, would anticipate this will improve over 7-10 days. If not follow-up with primary care. C diff is negative. Stool culture is pending. Vital Signs Vital signs: Initial Vital Signs Temperature 97.6 F 09/05/24 15:01 Temperature Source Temporal Artery Scan 09/05/24 15:01 Pulse Rate 77 09/05/24 15:01 Respiratory Rate 18 09/05/24 15:01 Blood Pressure 88/57 L 09/05/24 15:01 Blood Pressure Mean 67 L 09/05/24 15:01 Pulse Oximetry 96 09/05/24 15:01 Oxygen Delivery Method Room Air 09/05/24 15:01 Vital Signs Temperature 97.6 F 09/05/24 15:01 Pulse Rate 77 09/05/24 15:01 Respiratory Rate 18 09/05/24 15:01 Blood Pressure 88/57 L 09/05/24 15:01 Pulse Oximetry 96 09/05/24 15:01 Oxygen Delivery Method Room Air 09/05/24 15:01 Temperature 97.6 F 09/05/24 15:01 Pulse Rate 72 09/05/24 17:26 Respiratory Rate 18 09/05/24 17:26 Blood Pressure 163/92 H 09/05/24 17:26 Pulse Oximetry 99 09/05/24 17:26 Oxygen Delivery Method Room Air 09/05/24 17:26 Medications Administered Medications: Discontinued Medications Generic Name Dose Route Start Last Admin Trade Name Rubénq PRN Reason Stop Dose Admin Sodium Chloride 1,000 mls @ 1,000 mls/hr 09/05/24 16:00 09/05/24 17:46 0.9 % Sodium Chloride 1000 Ml IV 09/05/24 16:59 Infused .Q1H PRANAV Infusion Morphine Sulfate 4 mg 09/05/24 15:59 09/05/24 17:46 Morphine 4 Mg/Ml Inj IVP 09/05/24 16:00 Not Given ONCE ONE Ondansetron HCl 4 mg 09/05/24 15:59 09/05/24 16:31 Ondansetron 2 Mg/Ml Inj IVP 09/05/24 16:00 4 mg ONCE ONE Administration Medical Decision Making Lab Data Lab results reviewed: Yes I reviewed the patient's lab results Labs: Lab Results 09/05/24 09/05/24 Range/Units 16:05 16:16 WBC 10.58 (4.50-11.00) K/uL RBC 5.19 (4.30-5.90) m/uL Hgb 15.6 (13.5-17.5) gm/dL Hct 48.6 (37.0-53.0) % MCV 94 (80-100) fL MCH 30 (26-34) pg MCHC 32 (32-36) gm/dL RDW Coeff of Ashley 13.8 (11.5-15.5) % Plt Count 220 (140-440) K/uL Neut % (Auto) 85.1 H (42.0-72.0) % Lymph % (Auto) 10.0 L (20-44) % [place] % (Auto) 4.4 (0.0-11.0) % Eos % (Auto) 0.1 (0.0-7.0) % Baso % (Auto) 0.3 (0.0-3.0) % Neut # (Auto) 9.00 H (1.7-7.0) K/uL Lymph # (Auto) 1.10 (0.90-2.90) K/uL [place] # (Auto) 0.50 (0.00-0.90) K/UL Eos # (Auto) 0.01 (0.00-0.50) K/uL Baso # (Auto) 0.03 (0.00-0.30) K/uL Abs Immat Gran (auto) 0.01 (0.00-0.30) K/uL Imm/Tot Granulo (auto) 0.1 % Sodium 142 (135-149) mmol/L Potassium 4.0 (3.6-5.1) mmol/L Chloride 103 (96-114) mmol/L Carbon Dioxide 27 (20-32) mmol/L Anion Gap 12 (7-15) mEq/L BUN 25 (7-30) mg/dL Creatinine 1.2 (0.5-1.5) mg/dL Estimated Creat Clear 52.99 Estimated GFR 61 ml/min Glucose 156 H (60-115) mg/dL Calcium 10.1 (8.4-10.6) mg/dL Magnesium 2.0 (1.5-2.6) mg/dL Total Bilirubin 0.9 (0.1-1.5) mg/dL AST 41 H (12-35) U/L ALT 34 (4-50) U/L Alkaline Phosphatase 123 (40-150) U/L C-Reactive Protein 0.5 (0.5-1.0) mg/dL Total Protein 8.0 (6.0-8.3) g/dL Albumin 4.8 (3.3-5.0) g/dL Stl C. diff Tox B Gene Negative (Negative) Stl C. diff [id number] PRESUMPTIVE NEGATIVE (Negative) Imaging Data CT scan - abdomen: Attestation: I have reviewed the pertinent imaging results. Radiologist's impression: Patient: David Velez MR#: [id number] : 1945 Acct:[id number] Loc: ED Service Date: 09/05/[address]: Ordering Physician: Sandra Chen M.D. Date of Service: 09/05/24 Procedure(s): CT abdomen pelvis w con Accession Number(s): [id number] cc: Block,Sandra H M.D.; Provider,Not a Local~ For Patients: As a result of the Cures Act, medical imaging exams and procedure reports are released immediately into your electronic medical record. You may view this report before your referring provider. If you have questions, please contact your health care provider. INDICATION: ABD PAIN, DISTENTION, DIARRHEA, TIRED. TECHNIQUE: CT abdomen and pelvis acquired with 100 cc Isovue 370 IV contrast. COMPARISON: None. FINDINGS: Lower chest: Unremarkable. Liver: Unremarkable. Gallbladder and bile ducts: Unremarkable. No stones or inflammation. No biliary dilatation. Pancreas: Unremarkable. No mass or inflammation. Spleen: Unremarkable. Normal in size. No masses. Adrenal glands: Unremarkable. No nodules. Kidneys: Redemonstrated left renal cyst. No suspicious masses, stones, or hydronephrosis. GI tract: There is dilatation of the small bowel to 6.7 cm without a discrete focal caliber transition point. There is also relatively small volume fluid extends throughout the large intestine into the rectosigmoid colon, compatible with the reported diarrhea state. Normal appendix. Vasculature: Abdominal aorta is normal in caliber. Mesenteric arteries are patent. Lymph nodes: No lymphadenopathy. Peritoneum/Abdominal Wall: Moderate bilateral fat containing inguinal hernias. No sign of mass or infiltration. No free air or significant free fluid. Pelvis: Prostatomegaly. Bones: Redemonstrated left total hip arthroplasty. Severe right hip joint arthrosis, worsened relative to prior IMPRESSION: Findings compatible with enterocolitis. There is moderate dilatation of the small bowel to 6.7 cm without a discrete bowel caliber transition point, likely reflecting an ileus secondary to infection or inflammation. Please note that all CT scans at this facility use dose modulation, iterative reconstruction, and/or weight-based dosing when appropriate to reduce radiation dose to as low as reasonably achievable. Dictated by Germán Olsen MD @ 09/05/2024 5:55:55 PM Discharge Plan Discharge Clinical Impression: Enteritis Patient Disposition: Home, Self-Care Condition: Improved Instructions: Acute Diarrhea (ED) Additional Instructions: Keep your diet bland over the next few days. Your test today are all reassuring, but if you are feeling worse, develop fevers, more significant abdominal pain, bloody stools, or inability to maintain hydration, return to the ER at any time. Follow-up with your primary doctor if not gradually improving over the next 7-10 days. Prescriptions: No Action hydrochlorothiazide 25 mg tablet 12.5 mg PO QAM Eliquis 5 mg tablet 5 mg PO BID lisinopril 40 mg tablet 40 mg PO QDAY atorvastatin .Route tamsulosin [Flomax] 0.4 mg capsule 0.4 mg PO DAILY aspirin [Adult Low Dose Aspirin] 81 mg tablet,delayed release (DR/EC) 81 mg PO DAILY tramadol 50 mg tablet 50 mg PO Q6H PRN (Reason: pain) Qty: 20 0RF pantoprazole [Protonix] 20 mg tablet,delayed release (DR/EC) 20 mg PO DAILY Qty: 20 2RF terbinafine HCl 1 % cream 1 applic topical BID Qty: 30 0RF pantoprazole 20 mg tablet,delayed release (DR/EC) 20 mg PO DAILY Qty: 30 2RF cephalexin 500 mg capsule 500 mg PO QID Qty: 28 0RF Follow Up/Referrals: Provider,Not a Local [Primary Care Provider] - Stand Alone Forms: [facility] Info Instructions
[2024-09-05] MEDS: 0.9 % SODIUM CHLORIDE 1000 ml 1,000 ML IV (16:29)
[2024-09-05 16:31] LABS: Basophils Absolute Auto 0.03 K/uL (0.00-0.30); Basophils Percent Auto 0.3 % (0.0-3.0); Eosinophils Absolute Auto 0.01 K/uL (0.00-0.50); Eosinophils Percent Auto 0.1 % (0.0-7.0); Hematocrit 48.6 % (37.0-53.0); Hemoglobin* 15.6 gm/dL (13.5-17.5); Immature Granulocytes Abs Auto 0.01 K/uL (0.00-0.30); Immature Granulocytes Pct Auto 0.1 %; Mean Corpuscular HGB Conc 32 gm/dL (32-36); Mean Corpuscular Hemoglobin 30 pg (26-34); Mean Corpuscular Volume 94 fL (80-100); Monocytes Percent Auto 4.4 % (0.0-11.0); Neutrophils Percent Auto 85.1 % (42.0-72.0); Platelet Count* 220 K/uL (140-440); RDW Coefficient of Variation % 13.8 % (11.5-15.5); Red Blood Count 5.19 m/uL (4.30-5.90); White Blood Count* 10.58 K/uL (4.50-11.00)
[2024-09-05] MEDS: ONDANSETRON 2 MG/ML inj 4 MG IVP (16:31)
[2024-09-05 16:32] LABS: Lactate Sepsis w/Reflex* 3.3 mmol/L (0.5-1.9)
--- OUTSIDE RECORDS SUMMARY | 2024-09-05 16:32 | XMS_ITS | Clinical Summary ---
Author Organization [facility] Address [address] [place] [address] Care Team Providers Care Line Director Name Role Phone Elsewhere, Pcp Primary Care Provider Unavailabl e Source Comments Patient records contain information from all sites at [facility]. For routine questions regarding patient records, call [phone] during business hours, M-F 8:00 AM - 5:00 PM Central Time. Record requests for emergency care only can be directed to [phone] at any time.[facility] Allergies No known active allergies Medications erythromycin [...] arthroplasty on 12/31/[address] Downey at [facility]. He is on aspirin and apixaban for [...] He is a short term resident at [facility] for therapy. Pain controlled. Dressing clean dry [...] Comment: right eye, jun 2022, sees local technical director Hyperlipidemia 12/23/2023 Overview (01/06/2024): On atorvastatin Assessment & Plan (01/26/2024 3:49 PM CDT): Continue care plan. 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 Gender Identity Not on file Sexual Orientation Not on file Last Filed Vital Signs Vital Sign Reading Time Taken Comments Blood Pressure 117/58 05/31/2024 10:45 AM SCRAP COLLECTOR Pulse 67 05/31/2024 10:45 AM SCRAP COLLECTOR Temperature 36.6 C (97.9 F) 05/31/2024 10:30 AM SCRAP COLLECTOR Respiratory Rate 18 01/26/2024 8:10 AM CDT Oxygen Saturation 97% 05/31/2024 10:45 AM SCRAP COLLECTOR Inhaled Oxygen Concentration - - Weight 111 [...] this topic Medical Devices Implanted Type Area Wireless Sales Associate Device Identifier Shelf Expiration Date Model / Serial / Lot Hip Implant Hip Implant Left: Hip Description:Around 2008 thro [facility] Knee Implant-2023 Implanted: by Juventino Downey M.D. [...] 2:33 PM CDT 11/20/2023 2:34 PM CDT [facility] Millie Montoya APRN, C.N.P., D.N.P. LAB BLOO D ADD-ON Final Result [facility] [address] [place] [address], [facility] [place] [address] [place] [address] from Last 3 Months or Most Recently Relevant to Health Maintenance Insurance [facility] Advance Directives For more information, please contact: [phone] * Full Code (Latest Code Status on File) Date Activated Date Inactivated Comments 01/05/2024 5:19 PM Question Answer Comments Full Code: Discussed Care Teams Line Director Relationship Specialty Start Date End Date Elsewhere, Pcp PCP - General Internal Medicine 01/28/24
--- OUTSIDE RECORDS SUMMARY | 2024-09-05 16:32 | XMS_ITS | Encounter Summary ---
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 Date/Time Encounter Type Encounter Description Reason Provider Source Sep 02, 2024 09:30 AM ORAL HYGIENE INSTRUCTION DENTAL ICD-10-CM K02.62 Dental caries on smooth surface penetrating into dentin Afshin LORENZO Encounter Template Text not used by [facility] Assessments - Encounter Diagnoses This section includes the primary and secondary diagnoses documented for the Encounter. Date/Time Primary/Secondary Diagnosis Diagnosis Name Provider Source Sep 02, 2024 10:05 AM PRIMARY Dental caries on smooth surface penetrating into dentin MAURADENNISE EUCEDAAMANDA Blevins [facility] Plan of Treatment: Future Appointments (+ 6 months) and Future Tests (+/- 45 days) The Plan of Treatment section includes future care activities for the patient [facility]. This section includes future appointments and future orders which are active, pending or scheduled. Future Appointments This section includes appointments that were scheduled to occur 6 months from the date of the Encounter, up to a maximum of 20 appointments. The data comes from all [facility] facilities. Appointment Date/Time Appointment Type Appointme nt Facility Name Sep 16, 2024 10:45 AM AMBULATORY - MEDICINE [facility] Active, Pending, and Scheduled Orders This section includes a listing of several types of active, pending, and scheduled orders, including clinic medications orders, diagnostic test orders, procedure orders and consult orders; where the start date of the order is 45 days before the date of the Encounter or 45 days after the date of theEncounter. The data comes from all [facility]. Test Date/Time Test Type Test Details Facility Name Aug 16, 2024 12:00 AM Laboratory - Blood Bank Order TYPE & SCREEN - LAB BLOOD SP [facility] 2024 02:16 PM Consult Order SOCIAL WOR K (MEDICINE/PRIMARY CARE) OUTPT Cons Clinical Program Consultant's Choice [facility] Lab Results: +/- 30 days of the encounter This section includes the Chemistry and Hematology Lab Results on record with [place] for the patient. Radiology Reports and Pathology Reports are provided separately, in subsequent sections. Lab Results This section contains the Chemistry/Hematology Results that were resulted 30 days before or 30 daysafter the date of the Encounter. Date/Time Source Result Type Result - Unit Interpretation Reference Range Comment Aug 16, 2024 02:53 PM [facility] PROTHROMBIN TIME/INR Specimen Type: PLASMA No comment entered. Ordering Provider: Shay LOZA Report Released Date/Time: Aug 16, 2024 02:08 PM Reporting Lab: [facility] [phone] Performing Lab: [facility] [phone] .INR 1.5 H 0.8-1.1 .PT 17.8 s H 9.4-12.5 Aug 16, 2024 02:53 PM [facility] ALBUMIN Specimen Type: PLASMA No comment entered. Ordering Provider: Shay LOZA Report Released Date/Time: Aug 16, 2024 02:08 PM Reporting Lab: [facility] [phone] Performing Lab: [facility] [phone] ALBUMIN 4.2 g/dL 3.5-5.0 Aug 16, 2024 02:53 PM [facility] HEMOGLOBIN A1C Specimen Type: BLOOD Comment: Values obtained from A1C measurements can vary. For typical A1C assays, a reported value of 7.0 could actually be between 6.7 and 7.3 if measured by a reference method. A reported value of 9.0 could actually be between 8.7 and 9.3. Ref: http://www.ngs p.org/CAPdata. asp Ordering Provider: Shay LOZA Report Released Date/Time: Aug 16, 2024 02:08 PM Reporting Lab: [facility] [phone] Performing Lab: [facility] [phone] HEMOGLOBIN A1C 5.5 4.0-6.0 Aug 16, 2024 02:53 PM [facility] BASIC METABOLIC PANEL+MG Specimen Type: PLASMA No comment entered. Ordering Provider: Shay LOZA Report Released Date/Time: Aug 16, 2024 02:08 PM Reporting Lab: [facility] [phone] Performing Lab: [facility] [phone] CREATININE 1.4 mg/dL H 0.7-1.2 UREA NITROGEN 41 mg/dL H 8-26 GLUCOSE 101 mg/dL H 70-100 SODIUM 143 mmol/L 136-145 POTASSIUM 4.6 mmol/L 3.5-5.1 CHLORIDE 112 mmol/L H 98-107 CO2 24 mmol/L 22-29 CALCIUM 9.6 mg/dL 8.4-10.2 MAGNESIUM 2.3 mg/dL 1.6-2.6 ANION GAP 7 mmol/L 5-15 .CREAT EGFR(CKD-EPI) 51 L >60 Aug 16, 2024 02:53 PM [facility] CBC & DIFF Specimen Type: BLOOD Comment: Automated Differential Performed Ordering Provider: Shay LOZARED O Report Released Date/Time: Aug 16, 2024 02:08 PM Reporting Lab: [facility] [phone] Performing Lab: [facility] [phone] WBC 5.7 4.0-11.0 RBC 4.91 4.60-6.20 HGB 14.6 g/dL 13.5-17.9 HCT 45.9 41.0-54.0 MCV 93.5 fL 80.0-100.0 MCH 29.7 pg 27.0-33.0 MCHC 31.8 g/dL L 32.0-37.5 PLT 195 150-400 MPV 9.1 fL 9.1-13.0 NEUT 56.9 40.0-80.0 LYMPHS 26.1 15.0-45.0 MONO 10.8 2.0-12.0 EOSINO 4.4 0.0-6.0 BASO 1.6 0.0-2.0 RDW 14.0 11.5-14.5 ABS LYMPH 1.5 1.0-4.0 ABS MONO 0.6 0.1-1.0 ABS NEUT 3.3 2.0-7.7 ABS EOS 0.3 0.0-0.5 ABS BASO 0.1 0.0-0.2 IG(META,MYELO ,PRO) 0.2 ABS IMMATURE GRAN 0.0 0.0-0.1 Vital Signs: All taken on the encounter date This section contains inpatient and outpatient Vital Signs collected on the date of the Encounter. Date/Time Temperature Pulse Blood Pressure Respiratory Rate SP02 Pain Height Weight Body Mass Index Source Sep 02, 2024 09:47 AM 97.5 61 157/88 BOOKERDONALD SEQUEIRA [facility] Social History: Smoking Status (Most current) and Tobacco Use (All prior to encounter date) This section includes the most current, and the historical, smoking and tobacco- related health factors from the [place] facility where the Encounter took place. Current Smoking Status This section includes the most current smoking, or tobacco-related health factor, from the [place] facility where the Encounter took place. Date/Time Current Smoking Status Ann nowak Jul 01, 2024 01:45 PM VA-TOBACCO USE FORMER CIGARETTES [facility] Tobacco Use History This section includes a history of the smoking, or tobacco-related health factors, that were collected on or before the date of the Encounter. The data comes from the [place] facility where the Encounter took place. Date/Time Smoking Status/Tobacco Use Comment F acility Jul 01, 2024 01:45 PM VA-TOBACCO USE FORMER CIGARETTES [facility] Jul 10, 2023 01:45 PM VA-TOBACCO FORMER USER [facility] Jul 10, 2023 01:45 PM VA-TOBACCO QUIT [...] ALL of a patient's completed or amended [place] Advance and Rescinded Directives. The entries below indicate that a directive exists for the patient, but an actual copy is not included with this document. The data comes from all [place] facilities. Date Advance Directives Provider Source Apr 29, 2016 CLINICAL WARNING SANGEETA ALVARES [facility] 2014 CLINICAL WARNING ISAAC DARBY [facility] Apr 01, 2005 ADVANCE DIRECTIVE VALERIE MILLAN [facility] Radiology Reports: +/- 30 days of the [...] the Encounter. The data comes from all [place] treatment facilities. Date/Time Radiology Report Provider Source Aug 16, 2024 02:24 PM HIP RIGHT 2 VIEWS W/PELVIS: SABRINA CULLEN [id number] -1945 M Exm Date: AUG 16, 2024@14:24 Req Phys: ARELIS LOZA Pat Loc: [facility] (Req'g Loc Img Loc: MAIN X-RAY Service: [place] [address] (Case [id number] COMPLETE) HIP RIGHT 2 VIEWS W/PELVIS (RAD Detailed) CPT:48112 Reason for Study: RIGHT hip DJD. Need MARKR BALL ON HE AP. PUT AT THE LEVEL OF GRE Clinical History: RIGHT hip DJD. Need MARKR BALL ON HE AP. PUT AT THE LEVEL OF GREATER TROCHANTER FOR TEMPLATING FOR SURGERY My pager number on record is: [phone]. I confirm that the pager number/cell phone number above is correct for reporting critical results. Trainees only: Enter your staff provider's info here: LAST CREATININE 1.2 (07/01/24) Report Status: Verified Date Reported: AUG 16, 2024 Date Verified: AUG 16, 2024 Card Grinder E-Sig:/ES/WILLOW MURPHY MD Report: EXAMINATION: HIP RIGHT 2 VIEWS W/PELVIS 08/16/2024 2:24 PM INDICATION: Right hip DJD. Need marker ball on the AP view at the level of the greater trochanter. Templating for surgery. COMPARISON: Plain Films Right Hip 04/25/2024. Impression: Advanced degenerative changes and narrowing of the right hip joint. Associated subchondral cystic changes. Previous left BERT. Visualized components are well seated. SI joints and bony pelvis are unremarkable. Degenerative changes lower lumbar spine. Findings similar to 04/25/2024. Report Sign Date/Time: 08/16/2024 2:59 PM Primary Interpreting Staff: WILLOW MURPHY MD, RADIOLOGIST (Card Grinder) /RTS WILLOW MURPHY [facility] Encounter Notes: All associated encounter notes This section contains the clinical notes associated to the Encounter. Date/Time Encounter Note(s) Provider Source Sep 02, 2024 10:05 AM DENTISTRY CONSULT: LOCAL TITLE: DENTAL IMAGING CONSULT STANDARD TITLE: DENTISTRY CONSULT DATE OF NOTE: SEP 02, 2024@10:05 ENTRY DATE: SEP 02, 2024@10:05:23 AUTHOR: MARYAN LORENZO EXP COSIGNER: URGENCY: STATUS: COMPLETED Dental images were exposed, interpreted, and results were discussed with patient. /luis eduardo/ MARYAN LORENZO DDS STAFF DENTIST Signed: 09/02/2024 10:05 MARYAN LORENZO [facility] Sep 02, 2024 10:03 AM DENTISTRY CONSULT: LOCAL TITLE: DENTAL CONSULT STANDARD TITLE: DENTISTRY CONSULT DATE OF NOTE: SEP 02, 2024@10:03 ENTRY DATE: SEP 02, 2024@10:05:15 AUTHOR: MARYAN LORENZO EXP COSIGNER: URGENCY: STATUS: COMPLETED Patient Name: SABRINA CULLEN, : 1945, Age: 79 Visit: S: Sep 02, 2024@09:30 [facility]. Primary PCE Diagnosis: K02.62 (DENTAL CARIES ON SMOOTH SURFACE PENETRATING INTO DENTIN). Dental Category: 20-OPC, Special Provision. Treatment Status: Active. Completed Care: (D9310) DENTAL CONSULTATION. DX: K02.62 Dental Caries on Smooth Surface Penetrating into Dentin (D0330) DENTAL PANORAMIC IMAGE. DX: K02.62 Dental Caries on Smooth Surface Penetrating into Dentin (D0220) INTRAORAL PERIAPICAL FIRST. Tooth: 7. DX: K02.62 Dental Caries on Smooth Surface Penetrating into Dentin (D1330) ORAL HYGIENE INSTRUCTION. DX: K02.62 Dental Caries on Smooth Surface Penetrating into Dentin Presentation/Chief Complaint: Patient presents for dental consultation None History of Present Illness (HPI): 79 y/o male presents for a dental consult prior to a hip replacement. Sees a dentist in the private sector. 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) Environmental Allergies (ICD-9-CM 477.9) Hyperlipidemia (ICD-9-CM 272.4) Gout (ICD-9-CM 274.9) Cataract nos (ICD-9-CM 366.9) Constipation ([facility] [id number]) Knee pain ([facility] [id number]) Obstructive sleep apnea syndrome ([facility] [id number]) Ventricular premature complex ([facility] [id number]) Retinal hemorrhage ([facility] [id number]) History of carotid endarterectomy ([facility] [id number]) Long-term current use of anticoagulant ([facility] [id number]) History of left total knee replacement ([facility] [id number]) Active Medications: ---- Outpatient Medication ---- CAPSAICIN 0.025% CREAM - (ACTIVE) ATORVASTATIN CALCIUM 40MG TAB - (ACTIVE) FINASTERIDE 5MG TAB - (ACTIVE) APIXABAN 5MG TAB - (ACTIVE) METOPROLOL SUCCINATE 25MG SA TAB - (ACTIVE) ASPIRIN 81MG EC TAB - (ACTIVE) LISINOPRIL 40MG TAB - (ACTIVE) LORATADINE 10MG TAB - (ACTIVE) HYDROCHLOROTHIAZIDE 12.5MG TAB - (ACTIVE/SUSP) TAMSULOSIN HCL 0.4MG CAP - (ACTIVE/SUSP) Active Allergies: No Known Allergies Radiographic Findings: Radiographs reviewed, findings noted below: OPG: Panoramic film reveals a normal maxilla and mandible without evidence of dental periapical lucencys, sinus cloudiness, bony cysts, radiopacities or fractures. The temporomandibular joint shows no evidence of degenerative changes or pathology. Condylar morphology appears within normal limits. Caries noted on #2 and 20. PA #7: endo treated. PDL uniform. LD intact. Assessment/Plan: Caries noted on #2 and 20. Advise SDF application today to slow progression. [place] verbally consented after discussion of risks/benefits. Applied. Rinsed and suctioned. Advise he follow up with his dentist in the private sector for an examination. No urgent dental needs or acute dental infections noted on examination. No contraindications for planned procedure(s). Patient cleared from a dental perspective for planned surgery/procedure. No treatment required at this time Disposition: No follow up appointment indicated - - - - - - - - - - - - - - - - - - - - - - - - - - - - - - /luis eduardo/ MARYAN LORENZO DDS STAFF DENTIST Signed: 09/02/2024 10:05 MARYAN LORENZO [facility]
--- OUTSIDE RECORDS SUMMARY | 2024-09-05 16:32 | XMS_ITS | Encounter Summary ---
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 Date/Time Encounter Type Encounter Description Reason Provider Source Apr 25, 2024 02:30 PM OFF/OP CNSLTJ NEW/EST LOW 30 ORTHO/JOINT SURG ICD-10-CM Z96.652 Presence of left artificial knee joint JORDI BLANCA Encounter Template Text not used by [facility] Assessments - Encounter Diagnoses This section includes the primary and secondary diagnoses documented for the Encounter. Date/Time Primary/Secondary Diagnosis Diagnosis Name Provider Source Apr 25, 2024 03:26 PM PRIMARY Presence of left artificial knee joint JORDI BLANCA [facility] Apr 25, 2024 03:26 PM SECONDARY Unilateral primary osteoarthritis, right hip JORDI BLANCA [facility] Apr 25, 2024 03:26 PM SECONDARY Unilateral primary osteoarthritis, right knee JORDI BLANCA [facility] Plan of Treatment: Future Appointments (+ 6 months) and Future Tests (+/- 45 days) The Plan of Treatment section includes future care activities for the patient [facility] [place] [facility] This section includes future appointments and future orders which are active, pending or scheduled. Future Appointments This section includes appointments that were scheduled to occur 6 months from the date of the Encounter, up to a maximum of 20 appointments. The data comes from all [place] treatment facilities. Appointment Date/Time Appointment Type Appointme nt Facility Name May 23, 2024 02:00 PM AMBULATORY - MEDICINE [facility] Jun 02, 2024 12:30 PM AMBULATORY - SURGERY [facility] Jun 07, 2024 05:00 PM AMBULATORY - NONE [facility] Jul 01, 2024 12:45 PM [facility] Jul 01, 2024 01:45 PM [facility] Jul 28, 2024 11:00 AM AMBULATORY - SURGERY [facility] Aug 03, 2024 01:00 PM AMBULATORY - NONE [facility] Aug 16, 2024 01:30 PM AMBUL[facility]ORY - SUR[facility]ERY [facility] Aug 16, 2024 02:30 PM AMBULATORY - NONE [facility] Aug 16, 2024 03:45 PM AMBULATORY - NONE [facility] Sep 02, 2024 09:30 AM AMBULATORY - SURGERY [facility] Sep 16, 2024 10:45 AM [facility] Social History: Smoking Status (Most current) and Tobacco Use (All prior to encounter date) This section includes the most current, and the historical, smoking and tobacco- related health factors from the [place] facility where the Encounter took place. Current Smoking Status This section includes the most current smoking, or tobacco-related health factor, from the [place] facility where the Encounter took place. Date/Time Current Smoking Status [place] Jul 10, 2023 01:45 PM VA-TOBACCO FORMER USER [facility] Tobacco Use History This section includes a history of the smoking, or tobacco-related health factors, that were collected on or before the date of the Encounter. The data comes from the [place] facility where the Encounter took place. Date/Time Smoking Status/Tobacco Use Comment F acility Jul 10, 2023 01:45 PM VA-TOBACCO QUIT 15 YRS OR MORE [facility] Jun 13, 2022 01:15 PM VA-TOBACCO FORMER USER [facility] Jun 13, 2022 01:15 PM VA-TOBACCO QUIT 15 YRS OR MORE [facility] Apr 29, 2021 12:45 PM VA-TOBACCO FORMER USER [facility] Apr 29, 2021 12:45 PM VA-TOBACCO QUIT 15 YRS OR MORE [facility] May 23, 2019 01:02 PM VA-TOBACCO NEVER USED [facility] Apr 01, 2018 12:53 PM VA-TOBACCO FORMER USER [facility] Apr 01, 2018 12:53 PM VA-TOBACCO QUIT 15 YRS OR MORE [facility] Jun 16, 2017 08:20 AM FORMER TOBACCO USER 7Y OR GREATE R [facility] May 12, 2016 11:04 AM FORMER TOBACCO USER 7Y OR GREATE R [facility] May 24, 2015 01:56 PM FORMER TOBACCO USER 7Y OR GREATE R [facility] Aug 09, 2014 09:40 AM LIFETIME NON-TOBACCO USER [facility] October 25, 2013 09:46 AM FORMER TOBACCO USER 7Y OR GREATE R [facility] Mar 17, 2007 02:35 PM FORMER TOBACCO USER 7Y OR GREATE R [facility] Mar 04, 2006 11:27 AM FORMER TOBACCO USE >1Y [facility] Advance Directives: All historical and current Section Date Range: From patient's date of to the date document was created. This section includes ALL of a patient's completed or amended [place] Advance and Rescinded Directives. The entries below indicate that a directive exists for the patient, but an actual copy is not included with this document. The data comes from all [place] facilities. Date Advance Directives Provider Source Apr 29, 2016 CLINICAL WARNING SANGEETA ALVARES [facility] 2014 CLINICAL WARNING ISAAC DARBY [facility] Apr 01, 2005 ADVANCE DIRECTIVE VALERIE MILLAN [facility] Radiology Reports: +/- 30 days of the [...] the Encounter. The data comes from all [place] treatment facilities. Date/Time Radiology Report Provider Source Apr 25, 2024 02:45 PM HIP RIGHT 2 VIEWS W/PELVIS: SABRINA CULLEN [id number] -1945 M Exm Date: APR 25, 2024@14:45 Req Phys: JORDI BLANCA Loc: [facility] ORTHO SANIA NARWHAL CONSULT ( Img Loc: MAIN X-RAY Service: [place] [address] (Case [id number] COMPLETE) HIP RIGHT 2 VIEWS W/PELVIS (RAD Detailed) CPT:18475 Reason for Study: right hip pain Clinical History: [place] IS NOT under investigation for COVID-19 or is COVID-19 negative right hip pain Responsible provider name and phone number to notify for critical findings if other than user placing the order and pager listed below: User placing orders pager: [phone] ortho LAST CREATININE 1.2 (07/10/23) Report Status: Verified Date Reported: APR 25, 2024 Date Verified: APR 25, 2024 Technology Analyst E-Sig:/ES/BLAKE MIXON MD Report: HIP RIGHT 2 VIEWS W/PELVIS 04/25/2024 2:45 PM History: right hip pain Comparison: CT 08/24/2022, x-ray 03/08/2021 Impression: Advanced degenerative osteoarthritis in the right hip with progression from comparison studies, including severe loss of joint space with uonk-pl-hofn articulation, subchondral cystic change in the femoral head and acetabulum and osteophytic spurring. Left total hip arthroplasty, unchanged on the AP view of the pelvis. Degenerative changes in the sacroiliac joints. Vascular calcifications. Primary Interpreting Staff: BLAKE MIXON MD, STAFF RADIOLOGIST (Technology Analyst) /NRBLAKE BROOKS [facility] Apr 25, 2024 11:28 AM KNEE LEFT 4 VIEWS: SABRINA CULLEN [id number] -1945 M Exm Date: APR 25, 2024@11:28 Req Phys: SAMANTHA LUGO Pat Loc: [facility] ORTHO 2WK NURSE PROCEDURE Img Loc: MAIN X-RAY Service: [place] [address] (Case [id number] COMPLETE) KNEE LEFT 4 VIEWS (RAD Detailed) CPT:30754 Reason for Study: Bilat knee DJD Clinical History: IS NOT under investigation for COVID-19 or is COVID-19 negative Bilat knee DJD Responsible provider name and phone number to notify for critical findings if other than user placing the order and pager listed below: User placing orders pager: [phone] Ortho [id number] LAST CREATININE 1.2 (07/10/23) Report Status: Verified Date Reported: APR 25, 2024 Date Verified: APR 25, 2024 Technology Analyst E-Sig:/ES/TIANNA JARQUIN DO Report: EXAMINATION: KNEE LEFT 4 VIEWS, KNEE RIGHT 4 VIEWS 04/25/2024 11:28 AM INDICATION: Bilat knee DJD COMPARISON: 09/02/2021 Impression: Left knee: Interval left total knee arthroplasty. Hardware appears intact and in appropriate alignment. No acute fracture or dislocation. No significant suprapatellar joint effusion. There is atherosclerotic calcification. Right knee: No acute fracture or dislocation. Increased narrowing of the medial compartment. Mild bony ridging in the medial lateral compartments. Increased severe narrowing of the lateral aspect of the patellofemoral compartment with kpvg-jf-xkbr articulation and associated subchondral sclerosis. There is also a degree of lateral translation of the patella. Patellar enthesophyte formation again noted. No sizable suprapatellar joint effusion. There is amorphous calcific density in the suprapatellar recess, similar to prior. There is a degree of infrapatellar/patellar tendon soft tissue thickening, similar to prior. Primary Interpreting Staff: TIANNA JARQUIN DO, RADIOLOGIST (Technology Analyst) /DDS TIANNA JARQUIN [facility] Apr 25, 2024 11:28 AM KNEE RIGHT 4 VIEWS : SABRINA CULLEN [id number] -1945 M Exm Date: APR 25, 2024@11:28 Req Phys: SAMANTHA LUGO Pat Loc: [facility] ORTHO 2WK NURSE PROCEDURE Img Loc: MAIN X-RAY Service: [place] [address] (Case [id number] COMPLETE) KNEE RIGHT 4 VIEWS (RAD Detailed) CPT:41014 Reason for Study: Bilat knee DJD Clinical History: IS NOT under investigation for COVID-19 or is COVID-19 negative Bilat knee DJD Responsible provider name and phone number to notify for critical findings if other than user placing the order and pager listed below: User placing orders pager: [phone] Ortho [id number] LAST CREATININE 1.2 (07/10/23) Report Status: Verified Date Reported: APR 25, 2024 Date Verified: APR 25, 2024 Technology Analyst E-Sig:/ES/TIANNA JARQUIN DO Report: EXAMINATION: KNEE LEFT 4 VIEWS, KNEE RIGHT 4 VIEWS 04/25/2024 11:28 AM INDICATION: Bilat knee DJD COMPARISON: 09/02/2021 Impression: Left knee: Interval left total knee arthroplasty. Hardware appears intact and in appropriate alignment. No acute fracture or dislocation. No significant suprapatellar joint effusion. There is atherosclerotic calcification. Right knee: No acute fracture or dislocation. Increased narrowing of the medial compartment. Mild bony ridging in the medial lateral compartments. Increased severe narrowing of the lateral aspect of the patellofemoral compartment with oigq-at-gfzf articulation and associated subchondral sclerosis. There is also a degree of lateral translation of the patella. Patellar enthesophyte formation again noted. No sizable suprapatellar joint effusion. There is amorphous calcific density in the suprapatellar recess, similar to prior. There is a degree of infrapatellar/patellar tendon soft tissue thickening, similar to prior. Primary Interpreting Staff: TIANNA JARQUIN DO, RADIOLOGIST (Technology Analyst) /TIANNA ROSSI [facility] Encounter Notes: All associated encounter notes This section contains the clinical notes associated to the Encounter. Date/Time Encounter Note(s) Provider Source Apr 25, 2024 02:40 PM ORTHOPEDIC SURGERY CONSULT: LOCAL TITLE: ORTHOPEDIC CONSULT STANDARD TITLE: ORTHOPEDIC SURGERY CONSULT DATE OF NOTE: APR 25, 2024@14:40 ENTRY DATE: APR 25, 2024@14:40:53 AUTHOR: DELMY WICK COSIGNER: JORDI BLANCA URGENCY: STATUS: COMPLETED ORTHOPEDIC CONSULT Has ADDENDA Chief Complaint(s): left knee pain HPI: Patient is a very pleasant 78-year-old male presenting to the clinic for a follow-up on left knee pain. He had a left total knee arthroplasty in December 2023. He states he has been making good progree in physical therapy, expressing that he can fully extend and flex his leg and has minimal pain. He has not noticed any swelling or skin changes near the incision site. No concerns today regarding the left knee. He does, however, have concerns with continuing pain in his right hip and knee. The pain has been ongoing for a few years. The pain is on and off day-to-day but can become very sharp, minimizing the distance that he can walk. He is able to climb stairs slowly but has difficulty walking on uneven surfaces. The pain in both joints wakes him up at night. He states the right hip is usually more painful that the right knee. The hip pain is localized to the groin area, and the knee is predominantly painful in the anterior aspect. No numbness or tingling in either joints. Since having his left knee replaced he has been using a cane for stability. He received an image-guided cortisone injection into his hip joint in 2023 which relieved most of his pain. A couple years ago he recieved a cortisone injection in his right knee which alleviated much of the pain. He also had a hylan injection in the knee but does not feel like it helped. He currently wears a brace on the right knee, and is interested in another cortisone injection today for further pain relief. Past medical history/Active Problems: Active Problems: Active problems - Computerized Problem List is [...] - right eye, jun 2022, sees local metal model maker 18. History of carotid endarterectomy - Rt CEA and bovine patch repair, 08/2022 19. Long-term current use of anticoagulant Allergies: Patient has answered NKA Active Outpatient Medications (including Supplies): Active Outpatient Medications Status 1) APIXABAN 5MG TAB TAKE ONE TABLET BY MOUTH EVERY 12 ACTIVE (S) HOURS TO TREAT AND/OR PREVENT BLOOD CLOTS 2) ASPIRIN 81MG EC TAB TAKE ONE TABLET BY MOUTH EVERY ACTIVE DAY TO PREVENT BLOOD CLOTS DO NOT CHEW 3) ATORVASTATIN CALCIUM 40MG TAB TAKE ONE TABLET BY ACTIVE (S) MOUTH AT BEDTIME FOR CHOLESTEROL 4) DOCUSATE NA 50MG/SENNOSIDES 8.6MG TAB TAKE 1 TABLET ACTIVE BY MOUTH TWICE A DAY NEEDED FOR CONSTIPATION 5) FINASTERIDE 5MG TAB TAKE ONE TABLET BY MOUTH EVERY ACTIVE (S) DAY FOR PROSTATE 6) HYDROCHLOROTHIAZIDE 12.5MG TAB TAKE ONE TABLET BY ACTIVE (S) MOUTH EVERY DAY FOR BLOOD PRESSURE 7) LIDOCAINE 5% PATCH APPLY ONE PATCH FOR EACH KNEE ACTIVE TOPICALLY EVERY DAY NEEDED FOR UP TO 12 HOURS FOR PAIN 8) LISINOPRIL 40MG TAB TAKE ONE TABLET BY MOUTH EVERY ACTIVE DAY FOR HEART AND BLOOD PRESSURE 9) LORATADINE 10MG TAB TAKE ONE TABLET BY MOUTH EVERY ACTIVE DAY NEEDED FOR ALLERGIES 10) METOPROLOL SUCCINATE 25MG SA TAB TAKE ONE TABLET BY ACTIVE (S) MOUTH EVERY DAY 11) TAMSULOSIN HCL 0.4MG CAP TAKE ONE CAPSULE BY MOUTH ACTIVE (S) EVERY EVENING FOR PROSTATE Social Habits (describe): Living situation - lives alone. PHYSICAL EXAM: No significant swelling or erythema at the site of the incision of the left knee. No pain with palpation. 15 degrees of extension and 120 degrees of flexion. No swelling or erythema of the right knee. No pain to palpation. Full extension and 120 degrees flexion. No pain with resisted extension or flexion. Stable with varus and valgus stress. Anterior and posterior drawer negative. Negative straight leg raise. Patient is able to laterally flex his right hip without pain. No pain with flexion and extension against resistance. Imaging: Date Verified: APR 25, 2024 Technology Analyst E-Sig:/ES/TIANNA JARQUIN DO Report: EXAMINATION: KNEE LEFT 4 VIEWS, KNEE RIGHT 4 VIEWS 04/25/2024 11:28 AM INDICATION: Bilat knee DJD COMPARISON: 09/02/2021 Impression: Left knee: Interval left total knee arthroplasty. Hardware appears intact and in appropriate alignment. No acute fracture or dislocation. No significant suprapatellar joint effusion. There is atherosclerotic calcification. Right knee: No acute fracture or dislocation. Increased narrowing of the medial compartment. Mild bony ridging in the medial lateral compartments. Increased severe narrowing of the lateral aspect of the patellofemoral compartment with esur-od-asnx articulation and associated subchondral sclerosis. There is also a degree of lateral translation of the patella. Patellar enthesophyte formation again noted. No sizable suprapatellar joint effusion. There is amorphous calcific density in the suprapatellar recess, similar to prior. There is a degree of infrapatellar/patellar tendon soft tissue thickening, similar to prior. Assessment: 1. Left knee pain 2. Right knee pain 3. Right hip pain Plan: 1. Patient underwent a left total knee arthroplasty in December 2023. He reports that the recovery process is going well and he has minimal pain. Continue physical therapy sessions and post-surgical rehabilitation recommendations to continue with the recovery process. 2. Patient has been experiencing ongoing right knee pain consistend with narrowing in the patellofemoral compartment and rdhq-hh-ubzu articulation as found in the xray imaging. Management will remain conservative at this time as the patient is more concerned about his right hip pain. Continue wearing knee brace while ambulating. Patient was given a corticosteorid injection today and is told he can receive another injection after 3 months if this one helps with the pain. 3. Patient has bee experiencing ongoing right hip pain. He had xray imaging done on the right hip in 2020. Findings were consistent with moderate osteoarthritic degenerative changes. Xrays of the right hip will be obtained today to update his records. He states he is not interested in surgery at this time, but will follow up with his primary care provider when he is ready. /luis eduardo/ DLEMY WICK PA Student ortho Signed: 04/25/2024 15:14 /luis eduardo/ JORDI BLANCA PA-C PHYSICIAN TRANSFER WORKER Cosigned: 04/25/2024 15:26 04/25/2024 ADDENDUM STATUS: COMPLETED I was present during the PA student visit and hereby confirm the accuracy of the student's note as to the dela cruz aspect of the history of present illness, physical examination, and medical decision making with any exceptions or corrections noted. I independently performed the dela cruz aspects of the physical examination and medical decision making. 78-year-old male who was consulted to orthopedics in follow-up status post a left total knee arthroplasty performed at [place] in late December 2023. Patient has been progressing well in regard to his left knee. His preop pain is much improved. The original consult was placed as patient was having difficulty obtaining physical therapy following his total knee. An order was ultimately placed for PT in the community, patient has been making good progress. He states the knee feels stable. He has not had any persistent redness or warmth, so presents today for follow-up. He has also been having pain within his right hip and right knee. Patient has been seen for his right hip in the past. He had x-rays in 2020 which showed moderate degenerative arthritis. He states that over the past 3 years he has had at least 3 injections, the last in February 2024 which have provided good short-term benefit for his hip pain. He states the pain within the right hip has been a waxing and waning type, but when it is sharper does localize to the groin. He has noticed some loss of range of motion over time. The right hip is minimally painful today. Otherwise for his right knee, he has also been seen within the Ortho clinic in the past. He does have at least moderate degenerative change in the medial compartment, but more advanced changes in the patellofemoral compartment. Similarly he states that the pain waxes and wanes. He will have good days and bad days. Typically the pain locates anteriorly. He generally feels stable but the pain can be limiting at times. He has previously been treated with injections which have provided some good short-term benefit Agree with above note, past medical history reviewed Examination starting with his left knee shows a well-healed midline incision. There may be some mild edema, but no redness or warmth. He does lack about 5 degrees of terminal extension, but can flex to 120 degrees. He is relatively stable to varus and valgus, anterior and posterior drawer. Calf is soft and nontender. The right hip shows no tenderness over the greater trochanter. His range of motion, he is able to externally rotate 30 degrees, but internal rotation is less than 5. Stinchfield was negative today The right knee showed no effusion, redness, or warmth. He is still able to fully extend and can flex to 120 degrees. He is relatively stable to varus valgus stress at 0 and 30 degrees. He does have tenderness along both the medial and lateral patellar facets, mild tenderness at the medial joint line. Calf is soft X-rays of the left knee show the well aligned press-fit total knee replacement without evidence of premature lucency, poly wear or fracture. X-rays of the right knee show moderate medial joint space narrowing, advanced lateral patellar narrowing Patient is very happy with his progress within the left knee. We discussed that he still lacks a few degrees of terminal extension, so continuing to work on stretching anteriorly would be recommended. But he can slowly advance his activities as he tolerates. We discussed that if he did start to have an increase in pain, swelling or instability that he could return to orthopedics for further evaluation, but at this point would have him continue to work on physical therapy. We did discuss some of the previous changes within the right hip as well as the advanced patellofemoral arthritis in his right knee. We discussed that all things being equal somebody has arthritis within their hip and within their knee, that typically if he comes to the point of surgery that the hip is typically first as the recovery is quicker and sometimes will help with the knee pain on the same side. His hip pain is well-controlled at this point following his injection in February, but is requesting an injection into his right knee today with cortisone. Informed consent was obtained through IMED consent. Patient wished to proceed. After formal timeout, RIGHT knee was prepped with chloroprep, and I injected 1 cc depomedrol 40 mg/ml and 4 cc 0.25% bupivicaine without complication. Otherwise since he is having right hip pain and x-rays have not been done since 2020, new x-rays were ordered. He would not be interested in doing anything with his hip at this time, but he will contact his primary if the pain begins to return. His preference would be to undergo surgery in [place] given his distance if the hip pain worsened. /luis eduardo/ JORDI BLANCA PA-C PHYSICIAN TRANSFER WORKER Signed: 04/25/2024 15:36 DELMY WICK [facility]
--- OUTSIDE RECORDS SUMMARY | 2024-09-05 16:32 | XMS_ITS | Encounter Summary ---
Author Organization [facility] Address [address] [place] [address] Care Team Providers Care Assault Amphibious Vehicle Crewman Name Role Phone Elsewhere, Pcp Primary Care Provider Unavailabl e Reason for Visit * Reason Onset Date Comments Communication 08/09/2024 ORS Encounter Details Date Type Department Care Team (Latest Contact Info) Description 08/09/2024 Clinical Communication Department of Orthopedic Surgery in [place], [place] [address] [address] Juventino Downey M.D. [address] [phone] Communication (ORS) Social History Tobacco Use Types Packs/Day Years Used Date Smoking Tobacco: Former Smokeless Tobacco: Never PHQ-2 Answer Date Recorded PHQ-2 Score 0 12/23/2023 Dental Answer Date Recorded Dental: Regular Dentist Unknown 09/27/19 21 Sex and Gender Information Value Date Recorded Sex Assigned at Not on file Legal Sex Male 3:38 AM WEB DEVELOPMENT DIRECTOR Gender Identity Not on file Sexual Orientation Not on file documented as of this encounter Miscellaneous Notes * Telephone Encounter - Savana Musa R.N. - 08/10/2024 2:01 PM WEB DEVELOPMENT DIRECTOR Called patient and informed him the disability parking application has been completed. Patient is requesting this to be mailed to the address on file. DEVELOPMENT DIRECTOR * Telephone Encounter - Yani Riley P.A.-C., P.A. - 08/10/2024 1:37 PM CST Handicap parking sticker signed DEVELOPMENT DIRECTOR documented in this encounter Plan of Treatment Not on file documented as of this encounter Visit Diagnoses Not on filedocumented in this encounter Additional Health Concerns Assessment Noted Time PHQ-9 Depression Total Score: 0 04/27/20 14 2:21 PM WEB DEVELOPMENT DIRECTOR documented as of this encounter Care Teams Assault Amphibious Vehicle Crewman Relationship Specialty Start Date End Date Elsewhere, Pcp PCP - General Internal Medicine 01/28/24 documented as of this encounter
--- OUTSIDE RECORDS SUMMARY | 2024-09-05 16:32 | XMS_ITS | Clinical Summary ---
Author Organization [facility] Address [facility] access hospital[address] [place] [address] Care Team Providers Care Education Coordinator Name Role Phone Destini Cameron Primary Care Provider [phone] Allergies No known active allergies Medications apixaban [...] Department Care Team Description 08/03/2024 11:[address] REGISTRY OFFICER - 08/03/2024 11:[address] REGISTRY OFFICER Hospital Encounter [facility] [address] [place] [address] Destini Cameron MBBS Encounter for other specified special examinations 08/03/2024 Travel 08/02/2024 Telephone [facility] [address] [place] [address] [employer]onatan from Last 3 Months Social [...] on file Legal Sex Male 7:[address] REGISTRY OFFICER Gender Identity Not on file Sexual [...] 03/13/2023, 06/13/2022 Medical Devices Implanted Type Area Dye Penetrant Testing Technician Device Identifier Shelf Expiration Date Model / Serial / Lot Insert Tib Sz 6 10mm Knee X3 Condylar Stabilizing Triathlon - [id number] Implanted:Qty: 1 on 12/31/2023 by Juventino Downey MD at [facility] Left: Knee [employer] 05/05/2028 [id number]-G-[id number] -[id number] / / [id number] Fem Lt 5 Triathlon Beaded W/Pa - [id number] Implanted:Qty: 1 on 12/31/2023 by Juvnetino Downey MD at [facility] Left: Knee [employer] 05/09/2028 [id number] / / [id number] Baseplate Tib Univ Sz 6 Triathlon Keeled Ingrowth Pors Tritan - [id number] Implanted:Qty: 1 on 12/31/2023 by Juventino Downey MD at [facility] Left: Knee [employer] 08/15/2028 5536-[id number]-600 / / [id number] Patella [id number] Triathlon Tritanium Symmetrical Metal Backed - [id number] Implanted:Qty: 1 on 12/31/2023 by Juventino Downey MD at [facility] Left: Knee [employer] 04/27/2028 [id number] / / [id number] Explanted Type Area Dye Penetrant Testing Technician Device Identifier Shelf Expiration Date Model / Serial / Lot Pin Bone Fix [id number] - [id number] Explanted:Qty: 1 on 12/31/2023 by Juventino Downey MD at [facility] Left: Knee [employer] 08/12/2028 [id number] / / [id number] Pin Bone Fix [id number] Strl - [id number] Explanted:Qty: 1 on 12/31/2023 by Juventino Downey MD at [facility] Left: Knee [employer] 08/19/2028 [id number] / / [id number] Procedures Procedure Name Priority Date/Time Associated Diagnosis Comments NM CARDIAC MPI STRESS TEST Routine 08/03/2024 2:[address] REGISTRY OFFICER Encounter for other specified special examinations SCAN-STRESS TEST 08/03/2024 12:[address] REGISTRY OFFICER from Last 3 Months Results * NM CARDIAC MPI STRESS TEST (08/03/2024 2:[address] REGISTRY OFFICER) Anatomical Region Laterality Modality HEART Nuclear Medicine , Other 08/03/2024 12:[address] REGISTRY OFFICER Narrative 08/03/2024 4:[address] REGISTRY OFFICER Toll -free: [phone] [employer] MYOCARDIAL PERFUSION IMAGING REPORT REST/STRESS SINGLE ISOTOPE GATED SPECT IMAGING Patient Name: SABRINA VELEZ Gender: M Height: 72 in Weight: 237 lb Study Date: 08/03/2024 12:06:44 PM BSA: 2.29 m : 1945 78 years BMI: 32.14 kg/m Ord. Prov.: DESTINI CAMERON Monitoring Prov.: Liz Owen Performing Site [facility] Cardiac Risk Factors: Hypertension and hypercholesterolemia. Other [...] Mainor Sanchez MD - 08/03/2024 Toll -free: [phone] [employer] MYOCARDIAL PERFUSION IMAGING REPORT REST/STRESS SINGLE ISOTOPE GATED SPECT IMAGING Patient Name: SABRINA VELEZ Gender: Ronda Height: 72 in Weight: 237 lb Study Date: 08/03/2024 12:06:44 PM BSA: 2.29 m : 1945 78 years BMI: 32.14 kg/m Ord. Prov.: DESTINI CAMERON Monitoring Prov.: Liz Owen Performing Site [facility] Cardiac Risk Factors: Hypertension and hypercholesterolemia. Other [...] was 148 mmHg/75 mmHg; peak blood pressure mzw194 mmHg/75 mmHg. - Patient did not develop [...] Mcdonald 08/03/2024 4:30:15 PM. Final Destini FAROOQ DE Final Result * SCAN-STRESS TEST (08/03/2024 12:[address] REGISTRY OFFICER) Anatomical Region Laterality Modality Nuclear Medicine , Other Narrative 08/03/2024 12:[address] REGISTRY OFFICER Ordered by an unspecified provider. Other Clinical Staff OTHER Final Resul t from Last 3 Months Insurance [facility] MEDICARE ADVANTAGE MR [facility] MEDICARE ADVANTAGE MR [facility] SAULT MEDIC[facility] PART A HB ONLY Advance Directives * Full Code (Latest Code Status on File) Date Activated Date Inactivated Comments 12/31/2023 6:04 AM 01/04/2024 12:59 PM Question Answer Comments Code Status Discussion: Not Discussed Care Teams Education Coordinator Relationship Specialty Start Date End Date [place] [address] PCP - General Internal Medicine 12/11/23
[2024-09-05 16:33] LABS: Slide Review Reflex No
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
--- OUTSIDE RECORDS SUMMARY | 2024-09-05 16:33 | XMS_ITS | Continuity of Care Document ---
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 It does not include entries that were removed or entered in error. 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 [facility] Cataract nos Active Condition [facility] Constipation Active Condition [facility] Environmental Allergies (ICD-9-CM 477.9) Active Condition [facility] External thrombosed hemorrhoids (ICD-9-CM 455.4) Active Condition [facility] Gastroesophageal Reflux Disorder * (ICD-9-CM 530.81) Active Condition [facility] Gout * (ICD-9-CM 274.9) Active Condition [facility] Hiatal hernia * (ICD-9-CM 553.3) Active Condition [facility] History of carotid endarterectomy Active Condition Mar 13, 2023 Entered By: DESTINI JJ Comment: Rt CEA and bovine patch repair, 08/2022 [facility] History of left total knee replacement Active Condition Jul 01, 2024 Entered By: DESTINI JJ Comment: 2023, done at [facility] Hyperlipidemia Active Condition [facility] Hypertension, Nos Active Condition [place] [facility] Knee pain Active Condition [facility] Long-term current use of anticoagulant Active Condition [facility] Obesity * (ICD-9-CM 278.00) Active Condition [facility] Obstructive Sleep Apnea (Adult) (Pediatric) (ICD-9-CM 327.23) Active Condition [facility] Obstructive sleep apnea syndrome Active Condition [facility] Osteoarthritis Active Condition Aug 072012 Entered By: VALERY BRITO Comment: S/P left total hip in 2005. 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 [facility] Ventricular premature complex [facility] Diagnosis: ICD-10-CM K02.62 Dental caries on smooth surface penetrating into dentin Active Diagnosis [facility] Diagnosis: ICD-10-CM M25.551 Pain in right hip [facility] Diagnosis: ICD-10-CM M16.11 Unilateral primary osteoarthritis, right hip Active Diagnosis [facility] Diagnosis: ICD-10-CM H90.3 Sensorineural hearing loss, bilateral Active Diagnosis [facility] Diagnosis: ICD-10-CM 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 [facility] Diagnosis: ICD-10-CM Z96.652 Presence of left artificial knee joint Active Diagnosis [facility] Diagnosis: ICD-10-CM 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 Active Diagnosis [facility] Diagnosis: ICD-10-CM I65.22 Occlusion and stenosis of left carotid artery Active Diagnosis [facility] Diagnosis: ICD-10-CM Z13.6 Encounter for screening for cardiovascular disorders Active Diagnosis [facility] Diagnosis: ICD-10-CM Z23 Encounter for immunization Active Diagnosis [facility] Diagnosis: ICD-10-CM M79.673 Pain in unspecified foot [facility] Diagnosis: ICD-10-CM M25.569 Pain in unspecified knee Active Diagnosis [facility] Diagnosis: ICD-10-CM H90.5 Unspecified sensorineural hearing loss Active Diagnosis [facility] Diagnosis: ICD-10-CM Z46.1 Encounter for fitting and adjustment of hearing aid Active Diagnosis [facility] Diagnosis: ICD-10-CM Z71.9 Counseling, unspecified Active Diagnosis [facility] Diagnosis: ICD-10-CM Z98.890 Other specified postprocedural states Active Diagnosis [facility] Medications Combined list of outpatient medications from Department of Defense and Veterans Affairs facilities.Medications provided include 1) outpatient medications from the last 15 months, and 2) patient-reported medications. Medication Details Route Status Patient Instructions Prescription Expires Prescription Number Last Dispense Date Ordering Provider Order Date Order Qty Source APIXABAN 5MG TAB TAKE ONE TABLET BY MOUTH EVERY 12 HOURS TO TREAT AND/OR PREVENT BLOOD CLOTS ORAL ACTIVE 04/26/2025 [id number] NO AZEVEDO 2024 180 [facility] APIXABAN 5MG TAB TAKE ONE TABLET BY MOUTH EVERY 12 HOURS TO TREAT AND/OR PREVENT BLOOD CLOTS ORAL DISCONT INUED 05/25/2024 [id number] NO AZEVEDO 2023 180 [place] [facility] ASPIRIN 81MG TAB,EC TAKE ONE TABLET BY MOUTH EVERY DAY TO PREVENT BLOOD CLOTS DO NOT CHEW ORAL ACTIVE 11/10/2024 [id number] 5 [facility] NA 2023 120 [place] [facility] ASPIRIN 81MG TAB,EC TAKE ONE TABLET BY MOUTH EVERY DAY TO PREVENT BLOOD CLOTS DO NOT CHEW ORAL 08/29/2023 [id number] PATRIC MAURICE 2022 120 [place] [facility] ATORVASTATI N CA 40MG TAB TAKE ONE TABLET BY MOUTH AT BEDTIME FOR CHOLESTE ROL ORAL ACTIVE 04/26/2025 [id number] 5 [facility] NA 2024 90 [facility] ATORVASTATI N [place] 40MG TAB TAKE ONE TABLET BY MOUTH AT BEDTIME FOR CHOLESTE ROL ORAL DISCONT INUED 06/04/2024 [id number] 4 [place] NA 2023 90 [facility] CAPSAICIN 0.025% CREAM,TOP APPLY TO AFFECTED AREA TOPICALL Y THREE TIMES A DAY FOR PAIN *WASH HANDS AFTER APPLICAT ION* TOPICA L ACTIVE 07/02/2025 [id number] 5 [facility] NA 2024 60 [facility] DICLOFENAC NA 1% GEL,TOP APPLY 4 GRAMS TOPICALL Y TWICE A DAY TO AFFECTED AREA FOR PAIN. *USE DOSE CARD IN BOX TO MEASURE DOSE. MAX 32 GRAMS PER DAY. TOPICA L 10/24/2023 [id number] 4 BIGG IRENE REL 2022 200 [place] [facility] DOCUSATE NA 50MG/SENNOS IDES 8.6MG TAB TAKE 1 TABLET BY MOUTH TWICE A DAY NEEDED FOR CONSTIPA TION ORAL DISCONT INUED 03/09/2024 [id number] Ronda GARCIA 2023 100 [place] [facility] DOCUSATE NA 50MG/SENNOS IDES 8.6MG TAB TAKE 1 TABLET BY MOUTH TWICE A DAY NEEDED FOR CONSTIPA TION ORAL DISCONT INUED 03/13/2024 [id number] APOLLO JJ NA 2022 100 [place] [facility] DOCUSATE NA 50MG/SENNOS IDES 8.6MG TAB TAKE 1 TABLET BY MOUTH TWICE A DAY NEEDED FOR CONSTIPA TION ORAL 04/29/2024 [id number] 4 Ronda GARCIA 2023 100 [place] [facility] FINASTERIDE 5MG TAB TAKE ONE TABLET BY MOUTH EVERY DAY FOR PROSTATE ORAL ACTIVE 04/26/2025 [id number] ALCIRA CROFT M 2023 30 [place] [facility] FINASTERIDE 5MG TAB TAKE ONE TABLET BY MOUTH EVERY DAY FOR PROSTATE ORAL DISCONT INUED 11/13/2024 [id number] 4 ALCIRA CROFT M 2023 30 [place] [facility] FINASTERIDE 5MG TAB TAKE ONE TABLET BY MOUTH EVERY DAY FOR PROSTATE ORAL DISCONT INUED 12/05/2023 [id number] ALCIRA CROFT M 2023 30 [place] [facility] HYDROCHLORO THIAZIDE 12.5MG TAB TAKE ONE TABLET BY MOUTH EVERY DAY FOR BLOOD PRESSURE ORAL SUSPEND ED 04/26/2025 [id number] APOLLO JJ NA 2024 90 [place] [facility] HYDROCHLORO THIAZIDE 12.5MG TAB TAKE ONE TABLET BY MOUTH EVERY DAY FOR BLOOD PRESSURE ORAL DISCONT INUED 05/18/2024 [id number] PARVIZ,APOLLO NA 2023 90 [place] [facility] LIDOCAINE 5% PATCH APPLY 1 PATCH TOPICALL Y EVERY DAY NEEDED FOR UP TO 12 HOURS FOR PAIN TOPICA L DISCONT INUED (EDIT) 07/15/2024 [id number] JJ,HI NA 2023 60 [place] [facility] LIDOCAINE 5% PATCH APPLY 1 PATCH TOPICALL Y EVERY DAY NEEDED FOR UP TO 12 HOURS FOR PAIN TOPICA L DISCONT INUED (EDIT) 08/05/2023 [id number] 4 JJ,HI NA 2023 30 [place] [facility] LIDOCAINE 5% PATCH APPLY 1 PATCH TOPICALL Y EVERY DAY NEEDED FOR UP TO 12 HOURS FOR PAIN TOPICA L DISCONT INUED 07/09/2023 [id number] 4 JJ,HI NA 2023 30 [place] [facility] LIDOCAINE 5% PATCH APPLY ONE PATCH FOR EACH KNEE TOPICALL Y EVERY DAY NEEDED FOR UP TO 12 HOURS FOR PAIN TOPICA L 07/17/2024 [id number] PARVIZ,HI NA 2023 180 [place] [facility] LISINOPRIL 40MG TAB TAKE ONE TABLET BY MOUTH EVERY DAY FOR HEART AND BLOOD PRESSURE ORAL ACTIVE 11/10/2024 [id number] 5 JJ,HI NA 2023 90 [place] [facility] LISINOPRIL 40MG TAB TAKE ONE TABLET BY MOUTH EVERY DAY FOR HEART AND BLOOD PRESSURE ORAL DISCONT INUED 12/12/2023 [id number] BIGG IRENE 2022 90 [place] [facility] LORATADINE 10MG TAB TAKE ONE TABLET BY MOUTH EVERY DAY NEEDED FOR ALLERGIE S ORAL ACTIVE 10/20/2024 [id number] PARVIZ,HI NA 2023 90 [place] [facility] METOPROLOL SUCCINATE 25MG TAB,SA TAKE ONE TABLET BY MOUTH EVERY DAY ORAL ACTIVE 12/07/2024 [id number] TASH DIA 2023 90 [place] [facility] METOPROLOL SUCCINATE 50MG TAB,SA TAKE ONE-HALF TABLET BY MOUTH EVERY DAY ORAL DISCONT INUED 12/07/2024 [id number] TASH DIA [address] [facility] METOPROLOL SUCCINATE 50MG TAB,SA TAKE ONE-HALF TABLET BY MOUTH EVERY DAY ORAL DISCONT INUED 12/11/2023 [id number] TASH DIA [address] [facility] TAMSULOSIN HCL 0.4MG CAP TAKE ONE CAPSULE BY MOUTH EVERY EVENING FOR PROSTATE ORAL SUSPEND ED 01/19/2025 [id number] 5 Ronda GARCIA B [address] [facility] TAMSULOSIN HCL 0.4MG CAP TAKE ONE CAPSULE BY MOUTH EVERY EVENING FOR PROSTATE ORAL DISCONT INUED 04/27/2024 [id number] 4 APOLLO JJ [address] [facility] Immunizations Combined list of available immunizations from the Department of Defense and Veterans Affairs facilities. Immunization Series Date Given Administered By Site Reaction Lot Number CVX Code Drug Complex Manager Status Comments Source COVID-19 (Quantcast), MRNA, LNP-S, PF, PAULINA-SUCROSE, 30 MCG/0.3 ML (AGES 12+ YEARS) 1 2023 ELLIE ROBERSON RIGHT DELTO ID [id number] [facility] INFLUENZA, HIGH-DOSE, TRIVALENT, PF 2023 ELLIE ROBERSON LEFT DELTO ID [id number] [address] [facility] COVID-19 (Quantcast), MRNA, LNP-S, PF, PAULINA-SUCROSE, 30 MCG/0.3 ML (AGES 12+ YEARS) 1 2022 MISTI SOLIMAN LEFT DELTO ID [id number] [address] [facility] INFLUENZA, HIGH-DOSE, QUADRIVALENT 2022 LEWIS CATES LEFT DELTO ID [id number] [address] [facility] COVID-19 (Quantcast), MRNA, LNP-S, BIVALENT BOOSTER, PF, 30 MCG/0.3 ML DOSE 1 2022 IAN HIGGINS LEFT DELTO ID [id number] [address] [facility] INFLUENZA VACCINE, QUADRIVALENT, ADJUVANTED [address] [facility] PNEUMOCOCCAL CONJUGATE PCV20, POLYSACCHARID E [id number] CONJUGATE, ADJUVANT, PF [address] [facility] COVID-19 (PFIZER), MRNA, LNP-S, PF, 30 MCG/0.3 ML DOSE 3 2020 208 complet ed PFR; [id number]; 1 [facility] INFLUENZA, INJECTABLE, QUADRIVALENT, PRESERVATIVE FREE [address] [facility] COVID-19 (PFIZER), MRNA, LNP-S, PF, 30 MCG/0.3 ML DOSE 2 2020 208 complet ed PFR; [id number]; 1 [facility] COVID-19 ([facility]), MRNA, LNP-S, PF, 30 MCG/0.3 ML DOSE 1 2020 208 complet ed PFR; [id number]; 1 [facility] TD (ADULT), 5 LF TETANUS TOXOID, PRESERVATIVE FREE, ADSORBED [address] [facility] INFLUENZA, INJECTABLE, QUADRIVALENT, PRESERVATIVE FREE [address] [facility] ZOSTER RECOMBINANT 2 [address] [facility] ZOSTER RECOMBINANT 1 [address] [facility] INFLUENZA, SEASONAL, INJECTABLE, PRESERVATIVE FREE [address] [facility] INFLUENZA, SEASONAL, INJECTABLE, PRESERVATIVE FREE [address] [facility] INFLUENZA, HIGH DOSE SEASONAL [address] [facility] PNEUMOCOCCAL CONJUGATE PCV 13 2015 133 complet ed mtSuperfocus lot [id number] exp 06/25 [facility] INFLUENZA, HIGH DOSE SEASONAL [address] [facility] INFLUENZA, HIGH DOSE SEASONAL [address] [facility] PNEUMOCOCCAL POLYSACCHARID E [id number] 2014 33 complet ed [employer]; [id number]; 6 [facility] INFLUENZA, UNSPECIFIED FORMULATION [address] [facility] INFLUENZA, UNSPECIFIED FORMULATION [address] [facility] TDAP 2012 115 complet ed [id number] [facility] INFLUENZA, UNSPECIFIED FORMULATION [address] [facility] ZOSTER LIVE 2011 121 complet ed [employer] Lot#[id number] A Exp.Date- -06-28-12 [facility] INFLUENZA, UNSPECIFIED FORMULATION [address] [facility] INFLUENZA, UNSPECIFIED FORMULATION [address] [facility] INFLUENZA, UNSPECIFIED FORMULATION [address] [facility] INFLUENZA, UNSPECIFIED FORMULATION [address] [facility] PNEUMOCOCCAL, UNSPECIFIED FORMULATION [address] [facility] INFLUENZA, UNSPECIFIED FORMULATION [address] [facility] TD (ADULT), 2 LF TETANUS TOXOID, PRESERVATIVE FREE, ADSORBED [address] [facility] INFLUENZA, UNSPECIFIED FORMULATION [address] [facility] INFLUENZA, UNSPECIFIED FORMULATION [address] [facility] TETANUS TOXOID, UNSPECIFIED FORMULATION 2004 NONE [address] [facility] TD(ADULT) UNSPECIFIED FORMULATION 2002 MARCO MORA [address] [facility] Results Combined list of recent chemistry, hematology and other laboratory results from Department of Defense and Veterans Affairs, ranging from 15 months to all on record, depending upon the facility. Order Name Results Value Reference Range Date Interpretation Specimen Comments Source ALBUMIN ALBUMIN [MASS/VOLU ME] IN SERUM OR PLASMA 4.2 g/dL 3.5 - 5.0 08/16 Specimen Type: PLASMA No comment entered. Ordering Provider: SHANNON TRAN Report Released Date/Time: Aug 16, 2024 02:08 PM Reporting Lab: [facility] [address] Performing Lab: [facility] [address] [facility] BASIC METABOLI C PANEL+MG CREATININE [MASS/VOLU ME] IN SERUM OR PLASMA 1.4 mg/dL 0.7 - 1.2 08/16 H Specimen Type: PLASMA No comment entered. Ordering Provider: SHANNON TRAN Report Released Date/Time: Aug 16, 2024 02:08 PM Reporting Lab: [facility] [address] Performing Lab: [facility] [address] [place] [facility] BASIC METABOLI C PANEL+MG UREA NITROGEN [MASS/VOLU ME] IN SERUM OR PLASMA 41 mg/dL 8 - 26 08/16 H Specimen Type: PLASMA No comment entered. Ordering Provider: SHANNON TRAN Report Released Date/Time: Aug 16, 2024 02:08 PM Reporting Lab: [facility] [address] Performing Lab: [facility] [address] [place] [facility] BASIC METABOLI C PANEL+MG GLUCOSE [MASS/VOLU ME] IN SERUM OR PLASMA 101 mg/dL 70 - 100 08/16 H Specimen Type: PLASMA No comment entered. Ordering Provider: SHANNON TRAN Report Released Date/Time: Aug 16, 2024 02:08 PM Reporting Lab: [facility] [address] Performing Lab: [facility] [address] [place] [facility] BASIC METABOLI C PANEL+MG SODIUM [MOLES/VOL UME] IN SERUM OR PLASMA 143 mmol/L 136 - 145 08/16 Specimen Type: PLASMA No comment entered. Ordering Provider: SHANNON TRAN Report Released Date/Time: Aug 16, 2024 02:08 PM Reporting Lab: [facility] [address] Performing Lab: [facility] [address] [place] [facility] BASIC METABOLI C PANEL+MG POTASSIUM [MOLES/VOL UME] IN SERUM OR PLASMA 4.6 mmol/L 3.5 - 5.1 08/16 Specimen Type: PLASMA No comment entered. Ordering Provider: SHANNON TRAN Report Released Date/Time: Aug 16, 2024 02:08 PM Reporting Lab: [facility] [address] Performing Lab: [facility] [address] [place] [facility] BASIC METABOLI C PANEL+MG CHLORIDE [MOLES/VOL UME] IN SERUM OR PLASMA 112 mmol/L 98 - 107 08/16 H Specimen Type: PLASMA No comment entered. Ordering Provider: SHANNON TRAN Report Released Date/Time: Aug 16, 2024 02:08 PM Reporting Lab: [facility] [address] Performing Lab: [facility] [address] [place] [facility] BASIC METABOLI C PANEL+MG CARBON DIOXIDE, TOTAL [MOLES/VOL UME] IN SERUM OR PLASMA 24 mmol/L 22 - 29 08/16 Specimen Type: PLASMA No comment entered. Ordering Provider: SHANNON TRAN Report Released Date/Time: Aug 16, 2024 02:08 PM Reporting Lab: [facility] [address] Performing Lab: [facility] [address] [place] [facility] BASIC METABOLI C PANEL+MG CALCIUM [MASS/VOLU ME] IN SERUM OR PLASMA 9.6 mg/dL 8.4 - 10.2 08/16 Specimen Type: PLASMA No comment entered. Ordering Provider: SHANNON TRAN Report Released Date/Time: Aug 16, 2024 02:08 PM Reporting Lab: [facility] [address] Performing Lab: [facility] [address] [place] [facility] BASIC METABOLI C PANEL+MG MAGNESIUM [MASS/VOLU ME] IN SERUM OR PLASMA 2.3 mg/dL 1.6 - 2.6 08/16 Specimen Type: PLASMA No comment entered. Ordering Provider: SHANNON TRAN Report Released Date/Time: Aug 16, 2024 02:08 PM Reporting Lab: [facility] [address] Performing Lab: [facility] [address] [place] [facility] METABOLI C PANEL+MG ANION GAP IN SERUM OR PLASMA 7 mmol/L 5 - 15 08/16 Specimen Type: PLASMA No comment entered. Ordering Provider: SHANNON TRAN Report Released Date/Time: Aug 16, 2024 02:08 PM Reporting Lab: [facility] [address] Performing Lab: [facility] [address] [place] [facility] C PANEL+MG GLOMERULAR FILTRATION RATE/1.73 SQ M.PREDICTE D [VOLUME RATE/AREA] IN SERUM, PLASMA OR BLOOD BY CREATININE -BASED FORMULA (CKD-EPI 2020) 51 60 08/16 L Specimen Type: PLASMA No comment entered. Ordering Provider: SHANNON TRAN Report Released Date/Time: Aug 16, 2024 02:08 PM Reporting Lab: [facility] [address] Performing Lab: [facility] [address] [place] [facility] CBC & DIFF LEUKOCYTES [#/VOLUME] IN BLOOD BY AUTOMATED COUNT 5.7 4.0 - 11.0 08/16 Specimen Type: BLOOD Comment: Automated Differentia l Performed Ordering Provider: SHANNON TRAN Report Released Date/Time: Aug 16, 2024 02:08 PM Reporting Lab: [facility] [address] Performing Lab: [facility] [address] [place] [facility] CBC & DIFF ERYTHROCYT ES [#/VOLUME] IN BLOOD BY AUTOMATED COUNT 4.91 4.60 - 6.20 08/16 Specimen Type: BLOOD Comment: Automated Differentia l Performed Ordering Provider: SHANNON TRAN Report Released Date/Time: Aug 16, 2024 02:08 PM Reporting Lab: [facility] [address] Performing Lab: [facility] [address] [place] [facility] CBC & DIFF HEMOGLOBIN [MASS/VOLU ME] IN BLOOD 14.6 g/dL 13.5 - 17.9 08/16 Specimen Type: BLOOD Comment: Automated Differentia l Performed Ordering Provider: SHANNON TRAN Report Released Date/Time: Aug 16, 2024 02:08 PM Reporting Lab: [facility] [address] Performing Lab: [facility] [address] [place] [facility] CBC & DIFF HEMATOCRIT [VOLUME FRACTION] OF BLOOD BY AUTOMATED COUNT 45.9 41.0 - 54.0 08/16 Specimen Type: BLOOD Comment: Automated Differentia l Performed Ordering Provider: HSANNON TRAN Report Released Date/Time: Aug 16, 2024 02:08 PM Reporting Lab: [facility] [address] Performing Lab: [facility] [address] [place] [facility] CBC & DIFF MCV [ENTITIC VOLUME] BY AUTOMATED COUNT 93.5 fL 80.0 - 100.0 08/16 Specimen Type: BLOOD Comment: Automated Differentia l Performed Ordering Provider: SHANNON TRAN Report Released Date/Time: Aug 16, 2024 02:08 PM Reporting Lab: [facility] [address] Performing Lab: [facility] [address] [place] [facility] CBC & DIFF MCH [ENTITIC MASS] BY AUTOMATED COUNT 29.7 pg 27.0 - 33.0 08/16 Specimen Type: BLOOD Comment: Automated Differentia l Performed Ordering Provider: SHANNON TRAN Report Released Date/Time: Aug 16, 2024 02:08 PM Reporting Lab: [facility] [address] Performing Lab: [facility] [address] [place] [facility] CBC & DIFF MCHC [MASS/VOLU ME] BY AUTOMATED COUNT 31.8 g/dL 32.0 - 37.5 08/16 L Specimen Type: BLOOD Comment: Automated Differentia l Performed Ordering Provider: SHANNON TRAN Report Released Date/Time: Aug 16, 2024 02:08 PM Reporting Lab: [facility] [address] Performing Lab: [facility] [address] [place] [facility] CBC & DIFF PLATELETS [#/VOLUME] IN BLOOD BY AUTOMATED COUNT 195 150 - 400 08/16 Specimen Type: BLOOD Comment: Automated Differentia l Performed Ordering Provider: SHANNON TRAN Report Released Date/Time: Aug 16, 2024 02:08 PM Reporting Lab: [facility] [address] Performing Lab: [facility] [address] [place] [facility] CBC & DIFF PLATELET MEAN VOLUME [ENTITIC VOLUME] IN BLOOD BY AUTOMATED COUNT 9.1 fL 9.1 - 13.0 08/16 Specimen Type: BLOOD Comment: Automated Differentia l Performed Ordering Provider: SHANNON TRAN Report Released Date/Time: Aug 16, 2024 02:08 PM Reporting Lab: [facility] [address] Performing Lab: [facility] [address] [place] [facility] CBC & DIFF NEUTROPHIL S/100 LEUKOCYTES IN BLOOD BY MANUAL COUNT 56.9 40.0 - 80.0 08/16 Specimen Type: BLOOD Comment: Automated Differentia l Performed Ordering Provider: SHANNON TRAN Report Released Date/Time: Aug 16, 2024 02:08 PM Reporting Lab: [facility] [address] Performing Lab: [facility] [address] [place] [facility] CBC & DIFF LYMPHOCYTE S/100 LEUKOCYTES IN BLOOD BY MANUAL COUNT 26.1 15.0 - 45.0 08/16 Specimen Type: BLOOD Comment: Automated Differentia l Performed Ordering Provider: SHANNON TRAN Report Released Date/Time: Aug 16, 2024 02:08 PM Reporting Lab: [facility] [address] Performing Lab: [facility] [address] [place] [facility] CBC & DIFF MONOCYTES/ 100 LEUKOCYTES IN BLOOD BY AUTOMATED COUNT 10.8 2.0 - 12.0 08/16 Specimen Type: BLOOD Comment: Automated Differentia l Performed Ordering Provider: SHANNON TRAN Report Released Date/Time: Aug 16, 2024 02:08 PM Reporting Lab: [facility] [address] Performing Lab: [facility] [address] [place] [facility] CBC & DIFF EOSINOPHIL S/100 LEUKOCYTES IN BLOOD BY AUTOMATED COUNT 4.4 0.0 - 6.0 08/16 Specimen Type: BLOOD Comment: Automated Differentia l Performed Ordering Provider: SHANNON TRAN Report Released Date/Time: Aug 16, 2024 02:08 PM Reporting Lab: [facility] [address] Performing Lab: [facility] [address] [place] [facility] CBC & DIFF BASOPHILS/ 100 LEUKOCYTES IN BLOOD BY MANUAL COUNT 1.6 0.0 - 2.0 08/16 Specimen Type: BLOOD Comment: Automated Differentia l Performed Ordering Provider: SHANNON TRAN Report Released Date/Time: Aug 16, 2024 02:08 PM Reporting Lab: [facility] [address] Performing Lab: [facility] [address] [place] [facility] CBC & DIFF ERYTHROCYT E DISTRIBUTI ON WIDTH [RATIO] BY AUTOMATED COUNT 14.0 11.5 - 14.5 08/16 Specimen Type: BLOOD Comment: Automated Differentia l Performed Ordering Provider: SHANNON TRAN Report Released Date/Time: Aug 16, 2024 02:08 PM Reporting Lab: [facility] [address] Performing Lab: [facility] [address] [place] [facility] CBC & DIFF LYMPHOCYTE S [#/VOLUME] IN BLOOD BY AUTOMATED COUNT 1.5 1.0 - 4.0 08/16 Specimen Type: BLOOD Comment: Automated Differentia l Performed Ordering Provider: SHANNON TRAN Report Released Date/Time: Aug 16, 2024 02:08 PM Reporting Lab: [facility] [address] Performing Lab: [facility] [address] [place] [facility] CBC & DIFF MONOCYTES [#/VOLUME] IN BLOOD BY AUTOMATED COUNT 0.6 0.1 - 1.0 08/16 Specimen Type: BLOOD Comment: Automated Differentia l Performed Ordering Provider: SHANNON TRAN Report Released Date/Time: Aug 16, 2024 02:08 PM Reporting Lab: [facility] [address] Performing Lab: [facility] [address] [place] [facility] CBC & DIFF NEUTROPHIL S [#/VOLUME] IN BLOOD BY AUTOMATED COUNT 3.3 2.0 - 7.7 08/16 Specimen Type: BLOOD Comment: Automated Differentia l Performed Ordering Provider: SHANNON TRAN Report Released Date/Time: Aug 16, 2024 02:08 PM Reporting Lab: [facility] [address] Performing Lab: [place] [phone] [place] [facility] CBC & DIFF EOSINOPHIL S [#/VOLUME] IN BLOOD BY AUTOMATED COUNT 0.3 0.0 - 0.5 08/16 Specimen Type: BLOOD Comment: Automated Differentia l Performed Ordering Provider: SHANNON TRAN Report Released Date/Time: Aug 16, 2024 02:08 PM Reporting Lab: [facility] [address] Performing Lab: [facility] [address] [place] [facility] CBC & DIFF BASOPHILS [#/VOLUME] IN BLOOD BY AUTOMATED COUNT 0.1 0.0 - 0.2 08/16 Specimen Type: BLOOD Comment: Automated Differentia l Performed Ordering Provider: SHANNON TRAN Report Released Date/Time: Aug 16, 2024 02:08 PM Reporting Lab: [facility] [address] Performing Lab: [facility] [address] [place] [facility] CBC & DIFF IG(META,MY LUISA,PRO) 0.2 08/16 Specimen Type: BLOOD Comment: Automated Differentia l Performed Ordering Provider: SHANNON TRAN Report Released Date/Time: Aug 16, 2024 02:08 PM Reporting Lab: [facility] [address] Performing Lab: [facility] [address] [facility] CBC & DIFF IMMATURE GRANULOCYT ES [PRESENCE] IN BLOOD BY AUTOMATED COUNT 0.0 0.0 - 0.1 08/16 Specimen Type: BLOOD Comment: Automated Differentia l Performed Ordering Provider: SHANNON TRAN Report Released Date/Time: Aug 16, 2024 02:08 PM Reporting Lab: [facility] [address] Performing Lab: [facility] [address] [facility] HEMOGLOB IN A1C HEMOGLOBIN A1C/HEMOGL OBIN.TOTAL IN BLOOD 5.5 4.0 - 6.0 08/16 Specimen Type: BLOOD Comment: Values obtained from A1C measurement s can vary. For typical A1C assays, a reported value of 7.0 could actually be between 6.7 and 7.3 if measured by a reference method. A reported value of 9.0 could actually be between 8.7 and 9.3. Ref: http://www. ngsp.org/[place] Pdata.asp Ordering Provider: SHANNON TRAN Report Released Date/Time: Aug 16, 2024 02:08 PM Reporting Lab: [facility] [address] Performing Lab: [facility] [address] [facility] PROTHROM BIN TIME/INR INR IN PLATELET POOR PLASMA BY COAGULATIO N ASSAY 1.5 0.8 - 1.1 08/16 H Specimen Type: PLASMA No comment entered. Ordering Provider: SHANNON TRAN Report Released Date/Time: Aug 16, 2024 02:08 PM Reporting Lab: [facility] [address] Performing Lab: [facility] [address] [facility] PROTHROM BIN TIME/INR PROTHROMBI N TIME (PT) 17.8 s 9.4 - 12.5 08/16 H Specimen Type: PLASMA No comment entered. Ordering Provider: SHANNON TRAN Report Released Date/Time: Aug 16, 2024 02:08 PM Reporting Lab: [facility] [address] Performing Lab: [facility] [address] [place] [facility] ANTI-HEP C(EIA) HEPATITIS C VIRUS AB [PRESENCE] IN SERUM NEGATIVE 07/01 Specimen Type: SERUM No comment entered. Ordering Provider: DESTINI JJ Report Released Date/Time: Jul 10, 2023 02:21 PM Reporting Lab: [facility] [address] Performing Lab: [facility] [address] [place] [facility] BASIC METABOLI C PANEL+MG CREATININE [MASS/VOLU ME] IN SERUM OR PLASMA 1.2 mg/dL 0.7 - 1.2 07/01 Specimen Type: PLASMA No comment entered. Ordering Provider: DESTINI JJ Report Released Date/Time: Jul 10, 2023 02:20 PM Reporting Lab: [facility] [address] Performing Lab: [facility] [address] [place] [facility] BASIC METABOLI C PANEL+MG UREA NITROGEN [MASS/VOLU ME] IN SERUM OR PLASMA 27 mg/dL 8 - 26 07/01 H Specimen Type: PLASMA No comment entered. Ordering Provider: DESTINI JJ Report Released Date/Time: Jul 10, 2023 02:20 PM Reporting Lab: [facility] [address] Performing Lab: [facility] [address] [place] [facility] BASIC METABOLI C PANEL+MG GLUCOSE [MASS/VOLU ME] IN SERUM OR PLASMA 104 mg/dL 70 - 100 07/01 H Specimen Type: PLASMA No comment entered. Ordering Provider: DESTINI JJ Report Released Date/Time: Jul 10, 2023 02:20 PM Reporting Lab: [facility] [address] Performing Lab: [facility] [address] [place] [facility] BASIC METABOLI C PANEL+MG SODIUM [MOLES/VOL UME] IN SERUM OR PLASMA 139 mmol/L 136 - 145 07/01 Specimen Type: PLASMA No comment entered. Ordering Provider: DESTINI JJ Report Released Date/Time: Jul 10, 2023 02:20 PM Reporting Lab: [facility] [address] Performing Lab: [facility] [address] [place] [facility] BASIC METABOLI C PANEL+MG POTASSIUM [MOLES/VOL UME] IN SERUM OR PLASMA 3.7 mmol/L 3.5 - 5.1 07/01 Specimen Type: PLASMA No comment entered. Ordering Provider: DESTINI JJ Report Released Date/Time: Jul 10, 2023 02:20 PM Reporting Lab: [facility] [address] Performing Lab: [facility] [address] [place] [facility] BASIC METABOLI C PANEL+MG CHLORIDE [MOLES/VOL UME] IN SERUM OR PLASMA 108 mmol/L 98 - 107 07/01 H Specimen Type: PLASMA No comment entered. Ordering Provider: DESTINI JJ Report Released Date/Time: Jul 10, 2023 02:20 PM Reporting Lab: [facility] [address] Performing Lab: [facility] [address] [place] [facility] BASIC METABOLI C PANEL+MG CARBON DIOXIDE, TOTAL [MOLES/VOL UME] IN SERUM OR PLASMA 23 mmol/L 22 - 29 07/01 Specimen Type: PLASMA No comment entered. Ordering Provider: DESTINI JJ Report Released Date/Time: Jul 10, 2023 02:20 PM Reporting Lab: [facility] [address] Performing Lab: [facility] [address] [place] [facility] BASIC METABOLI C PANEL+MG CALCIUM [MASS/VOLU ME] IN SERUM OR PLASMA 10.1 mg/dL 8.4 - 10.2 07/01 Specimen Type: PLASMA No comment entered. Ordering Provider: DESTINI JJ Report Released Date/Time: Jul 10, 2023 02:20 PM Reporting Lab: [facility] [address] Performing Lab: [facility] [address] [place] [facility] BASIC METABOLI C PANEL+MG MAGNESIUM [MASS/VOLU ME] IN SERUM OR PLASMA 2.0 mg/dL 1.6 - 2.6 07/01 Specimen Type: PLASMA No comment entered. Ordering Provider: DESTINI JJ Report Released Date/Time: Jul 10, 2023 02:20 PM Reporting Lab: [facility] [address] Performing Lab: [facility] [address] [place] [facility] BASIC METABOLI C PANEL+MG ANION GAP IN SERUM OR PLASMA 8 mmol/L 5 - 15 07/01 Specimen Type: PLASMA No comment entered. Ordering Provider: DESTINI JJ Report Released Date/Time: Jul 10, 2023 02:20 PM Reporting Lab: [facility] [address] Performing Lab: [facility] [address] [place] [facility] BASIC METABOLI C PANEL+MG GLOMERULAR FILTRATION RATE/1.73 SQ M.PREDICTE D [VOLUME RATE/AREA] IN SERUM, PLASMA OR BLOOD BY CREATININE -BASED FORMULA (CKD-EPI 2020) 61 60 07/01 Specimen Type: PLASMA No comment entered. Ordering Provider: DESTINI JJ Report Released Date/Time: Jul 10, 2023 02:20 PM Reporting Lab: [facility] [address] Performing Lab: [facility] [address] [place] [facility] CBC LEUKOCYTES [#/VOLUME] IN BLOOD BY AUTOMATED COUNT 6.8 4.0 - 11.0 07/01 Specimen Type: BLOOD No comment entered. Ordering Provider: DESTINI JJ Report Released Date/Time: Jul 10, 2023 02:20 PM Reporting Lab: [facility] [address] Performing Lab: [facility] [address] [place] [facility] CBC ERYTHROCYT ES [#/VOLUME] IN BLOOD BY AUTOMATED COUNT 5.01 4.60 - 6.20 07/01 Specimen Type: BLOOD No comment entered. Ordering Provider: DESTINI JJ Report Released Date/Time: Jul 10, 2023 02:20 PM Reporting Lab: [facility] [address] Performing Lab: [facility] [address] [place] [facility] CBC HEMOGLOBIN [MASS/VOLU ME] IN BLOOD 14.4 g/dL 13.5 - 17.9 07/01 Specimen Type: BLOOD No comment entered. Ordering Provider: DESTINI JJ Report Released Date/Time: Jul 10, 2023 02:20 PM Reporting Lab: [facility] [address] Performing Lab: [facility] [address] [place] [facility] CBC HEMATOCRIT [VOLUME FRACTION] OF BLOOD BY AUTOMATED COUNT 46.7 41.0 - 54.0 07/01 Specimen Type: BLOOD No comment entered. Ordering Provider: DESTINI JJ Report Released Date/Time: Jul 10, 2023 02:20 PM Reporting Lab: [facility] [address] Performing Lab: [facility] [address] [place] [facility] CBC MCV [ENTITIC VOLUME] BY AUTOMATED COUNT 93.2 fL 80.0 - 100.0 07/01 Specimen Type: BLOOD No comment entered. Ordering Provider: DESTINI JJ Report Released Date/Time: Jul 10, 2023 02:20 PM Reporting Lab: [facility] [address] Performing Lab: [facility] [address] [place] [facility] CBC MCH [ENTITIC MASS] BY AUTOMATED COUNT 28.7 pg 27.0 - 33.0 07/01 Specimen Type: BLOOD No comment entered. Ordering Provider: DESTINI JJ Report Released Date/Time: Jul 10, 2023 02:20 PM Reporting Lab: [facility] [address] Performing Lab: [facility] [address] [place] [facility] CBC MCHC [MASS/VOLU ME] BY AUTOMATED COUNT 30.8 g/dL 32.0 - 37.5 07/01 L Specimen Type: BLOOD No comment entered. Ordering Provider: DESTINI JJ Report Released Date/Time: Jul 10, 2023 02:20 PM Reporting Lab: [facility] [address] Performing Lab: [facility] [address] [facility] CBC PLATELETS [#/VOLUME] IN BLOOD BY AUTOMATED COUNT 247 150 - 400 07/01 Specimen Type: BLOOD No comment entered. Ordering Provider: DESTINI JJ Report Released Date/Time: Jul 10, 2023 02:20 PM Reporting Lab: [facility] [address] Performing Lab: [facility] [address] [place] [facility] CBC PLATELET MEAN VOLUME [ENTITIC VOLUME] IN BLOOD BY AUTOMATED COUNT 9.3 fL 9.1 - 13.0 07/01 Specimen Type: BLOOD No comment entered. Ordering Provider: DESTINI JJ Report Released Date/Time: Jul 10, 2023 02:20 PM Reporting Lab: [facility] [address] Performing Lab: [facility] [address] [facility] CBC ERYTHROCYT E DISTRIBUTI ON WIDTH [RATIO] BY AUTOMATED COUNT 13.4 11.5 - 14.5 07/01 Specimen Type: BLOOD No comment entered. Ordering Provider: DESTINI JJ Report Released Date/Time: Jul 10, 2023 02:20 PM Reporting Lab: [facility] [address] Performing Lab: [facility] [address] [facility] B 12 COBALAMIN (VITAMIN B12) [MASS/VOLU ME] IN SERUM OR PLASMA 374 pg/mL 213 - 816 07/01 Specimen Type: SERUM No comment entered. Ordering Provider: DESTINI JJ Report Released Date/Time: Jul 01, 2024 02:20 PM Reporting Lab: [facility] [address] Performing Lab: [facility] [address] [facility] HEMOGLOB IN A1C HEMOGLOBIN A1C/HEMOGL OBIN.TOTAL IN BLOOD 5.4 4.0 - 6.0 07/01 Specimen Type: BLOOD Comment: Values obtained from A1C measurement s can vary. For typical A1C assays, a reported value of 7.0 could actually be between 6.7 and 7.3 if measured by a reference method. A reported value of 9.0 could actually be between 8.7 and 9.3. Ref: http://www. ngsp.org/[place] Pdata.asp Ordering Provider: DESTINI JJ Report Released Date/Time: Jul 01, 2024 02:17 PM Reporting Lab: [facility] [address] Performing Lab: [facility] [address] [facility] Vital Signs Combined list of inpatient and outpatient Vital Signs from Department of Defense and Veterans Affairs, ranging from 12 months to all on record, depending upon the facility. Vital Sign Value Date Comments Source SYSTOLIC BLOOD PRESSURE 157 09/02/2024 09:47:47 [facility] DIASTOLIC BLOOD PRESSURE 88 09/02/2024 09:47:47 [facility] TEMPERATURE 97.5 09/02/2024 09:47:[facility] PULSE 61 09/02/2024 09:47:47 [facility] SYSTOLIC BLOOD PRESSURE 115 07/01/2024 12:10:39 [facility] DIASTOLIC BLOOD PRESSURE 73 07/01/2024 12:10:39 [facility] PULSE OXIMETRY 97 07/01/2024 12:10:39 [facility] WEIGHT 245 07/01/2024 12:10:39 [facility] BMI 33 kg/m2 07/01/2024 12:10:39 [facility] PAIN 4 07/01/2024 12:10:39 [facility] HEIGHT 72 07/01/2024 12:10:39 [facility] TEMPERATURE 97.5 07/01/2024 12:10:39 [place] [facility] PULSE 64 07/01/2024 12:10:39 [facility] RESPIRATION 16 07/01/2024 12:10:39 [place] [facility] SYSTOLIC BLOOD PRESSURE 138 03/15/2024 14:43:39 [facility] DIASTOLIC BLOOD PRESSURE 82 03/15/2024 14:43:39 [facility] PULSE OXIMETRY 98 03/15/2024 14:43:39 [place] [facility] WEIGHT 239.7 03/15/2024 14:43:39 [facility] BMI 33 kg/m2 03/15/2024 14:43:39 [facility] PAIN 0 03/15/2024 14:43:39 [facility] TEMPERATURE 97.5 03/15/2024 14:43:39 [facility] PULSE 62 03/15/2024 14:43:39 [facility] RESPIRATION 16 03/15/2024 14:43:39 [facility] Encounters Combined list of: 1) Encounters from Department of [facility] facilities going backup to the last 18 months, not all [place] inpatient encounters are included; 2) Encounters from the Department of [facility] facilities going backup to 280 months. Location Location Details Encounter Type Encounter Number Reason For Visit Attending Provider ADM Date DC Date Status Disposition Source [facility] Outpatient Encounter [id number] 03/13 [facility] OFFICE O/P EST MOD 30-39 MIN [id number] Diagnos is: ICD-10- CM Z98.890 Other specifi ed postpro cedural states MAL JJ 03/13 [facility] [place] ADMIN [id number] Diagnos is: ICD-10- CM Z23 Encount er for immuniz ation JORDANA SOLIMAN 03/13 [facility] Outpatient Encounter [id number] 03/17 [facility] HC PRO PHONE CALL 5-10 MIN [id number] Diagnos is: ICD-10- CM Z71.9 Bread Jockey ing, unspeci ENDY Ambriz 03/17 [facility] Outpatient Encounter [id number] 03/27 [facility] HEARING AID FITTING/CH ECKING [id number] Diagnos is: ICD-10- CM Z46.1 Encount er for fitting and adjustm ent of hearing aid CAMILLE BACON 03/27 [facility] [place] [facility] Outpatient Encounter [id number] 03/30 [facility] [place] [facility] Outpatient Encounter [id number] 04/01 [facility] [place] [facility] Outpatient Encounter [id number] 04/09 [facility] [place] [facility] Outpatient Encounter [id number] 05/06 [facility] HEARING AID REPAIR/MOD IFYING [id number] Diagnos is: ICD-10- CM 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 [place] [facility] Outpatient Encounter [id number] 05/29 [facility] [place] [facility] Outpatient Encounter [id number] 07/08 [facility] [place] [facility] OFFICE O/P EST MOD 30 MIN [id number] Diagnos is: ICD-10- CM M25.569 Pain in 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 knee MAL JJ 07/10 [facility] [place] [facility] Outpatient Encounter [id number] ALEXANDRA,ELEN NDA J 07/15 [facility] [place] [facility] Outpatient Encounter [id number] 07/17 [facility] [place] [facility] Outpatient Encounter [id number] ALEXANDRA,ELEN NDA J 07/22 [facility] [place] [facility] Outpatient Encounter [id number] 07/24 [facility] [place] [facility] Outpatient Encounter [id number] 08/04 [facility] OFF/OP EST MAY X REQ PHY/QHP [id number] Diagnos is: ICD-10- CM H90.3 Sensori neural hearing loss, REBECCA Mcbride M 08/20 [facility] ORTHC/PROS TC MGMT SBSQ ENC [id number] Diagnos is: ICD-10- CM M79.673 Pain in 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 foot MARGI DARLING 08/20 [facility] Outpatient Encounter [id number] 09/06 [facility] Outpatient Encounter [id number] 09/06 [facility] Outpatient Encounter [id number] 09/07 [facility] Outpatient Encounter [id number] 09/09 [facility] Outpatient Encounter [id number] ALEXANDRAELEN SORIANO 09/13 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 [place] [facility] Outpatient Encounter [id number] 09/22 [facility] [place] [facility] Outpatient Encounter [id number] 09/23 [place] [facility] [place] [facility] En[facility] [id number] Millie RAI 09/27 [place] [facility] [place] [facility] En[place] [id number] Millie RAI 10/17 [place] [facility] [place] [facility] [place] En[place] [id number] 10/18 [place] [facility] [place] [facility] [place] En[place] [id number] YAYAMADISON M 10/18 [place] [facility] [place] [facility] [place] En[place] [id number] Millie RAI 11/12 [place] [facility] [place] [facility] En[place] [id number] 12/23 [place] [facility] [place] [facility] [place] [facility] [id number] 12/31 [place] [facility] [place] [facility] [place] En[place] [id number] 01/03 [place] [facility] [place] [facility] [place] En[place] [id number] 01/11 [place] [facility] [facility] [place] [facility] [place] [facility] [id number] 01/14 [place] [facility] [place] [facility] [place] En[place] [id number] 01/24 [place] [facility] [place] [facility] [place] [facility] [id number] 02/01 [place] [facility] [place] [facility] [place] En[place] [id number] 02/01 [place] [facility] [place] [facility] [place] En[place] [id number] 02/02 [place] [facility] [place] [facility] [place] En[place] [id number] 02/08 [facility] [place] [facility] Out[facility]counter [id number] 02[facility]09 [facility] [place] [facility] Out[facility]counter [id number] 02/14 [facility] [place] [facility] Outpatient [facility]counter [id number] 03/07 [facility] Outpatient Encounter [id number] 03/11 [facility] ADMN SARSCOV2 VACC 1 DOSE [id number] Diagnos is: ICD-10- CM Z23 Encount er for immuniz ation ELLIE ROBERSON P 03/15 [facility] TTE W/DOPPLER COMPLETE [id number] Diagnos is: ICD-10- CM 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 SANCHEZ OLIVAREZ,Y S 03/15 [facility] ELECTROCAR DIOGRAM REPORT [id number] Diagnos is: ICD-10- CM Z13.6 Encount er for screeni ng for cardiov ascular disorde MIRANDA Martinez B 03/15 [facility] OFFICE O/P EST HI 40 MIN [id number] Diagnos is: ICD-10- CM 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 Patricio DIA 03/15 [facility] Outpatient Encounter [id number] Diagnos is: ICD-10- CM I65.22 Occlusi on and stenosi s of left carotid artery Paty MONTANO 03/22 [facility] Outpatient En[facility] [id number] 04[facility] Outpatient Encounter [id number] 04/14 [facility] OFF/OP EST MAY X REQ PHY/QHP [id number] Diagnos is: ICD-10- CM H90.3 Sensori neural hearing loss, bilater césar GLENISNO DUMONT A 04/25 [facility] QNHP OL DIG ASSMT&MGMT 5-10 [id number] Diagnos is: ICD-10- CM 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 PERLA AZEVEDO 04/25 [facility] OFF/OP CNSLTJ NEW/EST LOW 30 [id number] Diagnos is: ICD-10- CM 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 DUONG BLANCA D 04/25 [facility] Outpatient Encounter [id number] 04/25 [facility] EXT ECG>48HR<7 D REV&INTERP J [id number] Diagnos is: ICD-10- CM 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 FLOREA,BIGG REL 04/26 [facility] Outpatient Encounter [id number] Diagnos is: ICD-10- CM 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 Patricio DIA 04/28 [facility] Outpatient Encounter [id number] Diagnos is: ICD-10- CM 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 [facility] HEARING AID FITTING/CH ECKING [id number] Diagnos is: ICD-10- CM H90.3 Sensori neural hearing loss, KAYLAH Cuenca 06/02 [facility] Outpatient Encounter [id number] 07/01 [facility] OFFICE O/P EST MOD 30 MIN [id number] Diagnos is: ICD-10- CM M25.551 Pain in right hip MAL JJ Destini 07/01 [facility] Outpatient Encounter [id number] ALEXANDRA,ELEN Pepe 07/05 [facility] Outpatient Encounter [id number] 07/06 [facility] OFF/OP CNSLTJ NEW/EST MOD 40 [id number] Diagnos is: ICD-10- CM M16.11 Unilate ral primary osteoar thritis , right hip DOMENICA WANG 07/28 [facility] OFFICE O/P EST LOW 20 MIN [id number] Diagnos is: ICD-10- CM M25.551 Pain in right hip KIA BRISCOE MD 08/16 [facility] Outpatient Encounter [id number] 08/31 [facility] ORAL HYGIENE INSTRUCTIO N [id number] Diagnos is: ICD-10- CM K02.62 Dental caries on smooth surface penetra ting into dentin MARYAN MOLINA 09/02 [facility] Social History Combined list of available smoking, tobacco, and other social history from Department of Defense and Veterans Affairs facilities. Social History Type Response Date Comment [facility] e Tobacco smoking status NHIS VA-TOBACCO USE FORMER CIGARETTES 07/01/2024 [facility] History of tobacco use VA-TOBACCO NEVER USED OTHER TYPE 07/01/2024 [facility] History of tobacco use VA-TOBACCO FORMER USER 07/10/2023 [facility] History of tobacco use VA-TOBACCO FORMER USER 06/13/2022 [facility] History of tobacco use VA-TOBACCO FORMER USER 04/29/2021 [facility] History of tobacco use VA-TOBACCO NEVER USED 05/23/2019 [facility] History of tobacco use VA-TOBACCO FORMER USER 04/01/2018 [facility] History of tobacco use FORMER TOBACCO US ER 7Y OR GREATER 06/16/2017 [facility] History of tobacco use FORMER TOBACCO US ER 7Y OR GREATER 05/12/2016 [facility] History of tobacco use FORMER TOBACCO US ER 7Y OR GREATER 05/24/2015 [facility] History of tobacco use LIFETIME NON-TOBACCO USER 5 [facility] History of tobacco use FORMER TOBACCO US ER 7Y OR GREATER 10/25/2013 [facility] History of tobacco use FORMER TOBACCO US ER 7Y OR GREATER 03/17/2007 [facility] History of tobacco use FORMER TOBACCO USE >1Y 03/04/2006 [facility] Plan of Care List of future care activities from Department of Veterans Affairs facilities. Additional future care activities may be listed in the Assessment and Plan section. Date/Time Care Activity Care Activity Detail Facili ty 09/16/2024 AMBULATORY - MEDICINE AMBULATORY - MEDICI [facility] Advance Directives List of completed, amended, or rescinded Advance Directives on record at Department of Veterans Affairs facilities. An actual copy of the Directive is not included. Date Advance Directive Provider Source 04/29/2016 CLINICAL WARNING SANGEETA ALVARES [facility] 2014 CLINICAL WARNING ISAAC DARBY [facility] 04/01/2005 ADVANCE DIRECTIVE VALERIE MILLAN [facility]
--- OUTSIDE RECORDS SUMMARY | 2024-09-05 16:33 | XMS_ITS | Encounter Summary ---
Author Name [facility] [place] [facility] [place] [facility] [place] Address [address] [place] [id number] Care Team Providers Care Ict Customer Support Officer Name Role Phone JJDESTINI MONTAÑO Primary Care Provider Unavailabl e Insurance [...] Hernández's Name Patient's Relationship to Policy Hernández [facility] (WNR) MEDICARE ADVANTAGE [facility] (WNR) Jun 08, 2019 [id number] SUBHASH,BE RNA PATIENT Selected Encounter This section includes the information on record at [place] for the Encounter. Date/Time Encounter Type Encounter Description Reason Pro vider Source Apr 14, 2024 01:00 PM Outpatient Encounter AMB ECG MONITORING IHE Encounter Template Text not used by [...] 20 appointments. The data comes from all [place] treatment facilities. Appointment Date/Time Appointment Type Appointme nt Facility Name Apr 25, 2024 12:00 PM AM[facility]ULATORY - NONE [facility] Apr 25, 2024 01:00 PM [facility] [place] [facility] Apr 25, 2024 02:30 PM [facility] May 23, 2024 02:00 PM [facility] Jun 02, 2024 12:30 PM [facility] Jun 07, 2024 05:00 PM AM[facility]ORY - NONE [facility] Jul 01, 2024 12:45 PM AM[facility] NONE [facility] Jul 01, 2024 01:45 PM [facility] Jul 28, 2024 11:00 AM AMBULATORY - SURGERY [facility] Aug 03, 2024 01:00 PM AM[facility]ORY [facility] NONE [facility] Aug 16, 2024 01:30 PM [facility] [place] [facility] Aug 16, 2024 02:30 PM [facility]ONE [place] [facility] Aug 16, 2024 03:45 PM AM[facility]ORY [facility] NONE [facility] Sep 02, 2024 09:30 AM [facility] [place] [facility] Sep 16, 2024 10:45 AM [facility] Social History: Smoking Status (Most current) and Tobacco Use (All prior to encounter date) This section includes the most current, and the historical, smoking and tobacco- related health factors from the [place] facility where the Encounter took place. Current Smoking Status This section includes the most current smoking, or tobacco-related health factor, from the [place] facility where the Encounter took place. Date/Time Current Smoking Status Comment Deandre ity Jul 10, 2023 01:45 PM VA-TOBACCO FORMER USER [facility] Tobacco Use History This section includes a history of the smoking, or tobacco-related health factors, that were collected on or before the date of the Encounter. The data comes from the [place] facility where the Encounter took place. Date/Time [...] ALL of a patient's completed or amended [place] Advance and Rescinded Directives. The entries below indicate that a directive exists for the patient, but an actual copy is not included with this document. The data comes from all [facility]. Date Advance Directives Provider Source Apr 29, 2016 CLINICAL WARNING SANGEETA ALVARES [facility] 2014 CLINICAL WARNING ISAAC DARBY [facility] Apr 01, 2005 ADVANCE DIRECTIVE VALERIE MILLAN [facility] Radiology Reports: +/- 30 days of [...] the Encounter. The data comes from all [place] treatment facilities. Date/Time Radiology Report Provider Source Apr 25, 2024 02:45 PM HIP RIGHT 2 VIEWS W/PELVIS: SABRINA CULLEN [id number] -1945 M Exm Date: APR 25, 2024@14:45 Req Phys: JORDI BLANCA Pat Loc: [facility] CONSULT ( Img Loc: MAIN X-RAY Service: [place] [address] (Case [id number] COMPLETE) HIP RIGHT 2 VIEWS W/PELVIS (RAD Detailed) CPT:41306 Reason for Study: right hip pain Clinical History: [facility] IS NOT under investigation for COVID-19 or is COVID-19 negative right hip pain Responsible provider name and phone number to notify for critical findings if other than user placing the order and pager listed below: User placing orders pager: [phone] ortho LAST CREATININE 1.2 (07/10/23) Report Status: Verified Date Reported: APR 25, 2024 Date Verified: APR 25, 2024 City Comptroller E-Sig:/ES/BLAKE MIXON MD Report: HIP RIGHT 2 VIEWS W/PELVIS 04/25/2024 2:45 PM History: right hip pain Comparison: CT 08/24/2022, x-ray 03/08/2021 Impression: 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 Left total hip arthroplasty, unchanged on the AP view of the pelvis. Degenerative changes in the sacroiliac joints. Vascular calcifications. Primary Interpreting Staff: BLAKE MIXON MD, STAFF RADIOLOGIST (City Comptroller) /BLAKE FARMER [facility] Apr 25, 2024 11:28 AM KNEE LEFT 4 VIEWS: SABRINA CULLEN [id number] 1945 M Exm Date: APR 25, 2024@11:28 Req Phys: SAMANTHA LUGO Pat Loc: [facility] ORTHO 2WK NURSE PROCEDURE Img Loc: MAIN X-RAY Service: [place] [address] (Case [id number] COMPLETE) KNEE LEFT 4 VIEWS (RAD Detailed) CPT:21809 Reason for Study: Bilat knee DJD Clinical History: IS NOT under investigation for COVID-19 or is COVID-19 negative Bilat knee DJD Responsible provider name and phone number to notify for critical findings if other than user placing the order and pager listed below: User placing orders pager: [phone] Ortho [phone] LAST CREATININE 1.2 (07/10/23) Report Status: Verified Date Reported: APR 25, 2024 Date Verified: APR 25, 2024 City Comptroller E-Sig:/ES/TIANNA JARQUIN DO Report: EXAMINATION: KNEE LEFT [...] lateral aspect of the patellofemoral compartment with rmyw-sx-vnrw articulation and associated subchondral sclerosis. There is also a degree of lateral translation of the patella. Patellar enthesophyte formation again noted. No sizable suprapatellar joint effusion. There is amorphous calcific density in the suprapatellar recess, similar to prior. There is a degree of infrapatellar/patellar tendon soft tissue thickening, similar to prior. Primary Interpreting Staff: TIANNA JARQUIN DO, RADIOLOGIST (City Comptroller) /DDS TIANNA JARQUIN [facility] Apr 25, 2024 11:28 AM KNEE RIGHT 4 VIEWS : SABRINA CULLEN [id number] -1945 M Exm Date: APR 25, 2024@11:28 Req Phys: SAMANTHA ULGO Pat Loc: [facility] ORTHO 2WK NURSE PROCEDURE Img Loc: MAIN X-RAY Service: [place] [address] (Case [id number] COMPLETE) KNEE RIGHT 4 VIEWS (RAD Detailed) CPT:86200 Reason for Study: Bilat knee DJD Clinical History: [place] IS NOT under investigation for COVID-19 or is COVID-19 negative Bilat knee DJD Responsible provider name and phone number to notify for critical findings if other than user placing the order and pager listed below: User placing orders pager: [phone] Ortho [id number] LAST CREATININE 1.2 (07/10/23) Report Status: Verified Date Reported: APR 25, 2024 Date Verified: APR 25, 2024 City Comptroller E-Sig:/ES/TIANNA JARQUIN DO Report: EXAMINATION: KNEE LEFT [...] lateral aspect of the patellofemoral compartment with cibn-hd-gzzb articulation and associated subchondral sclerosis. There is also a degree of lateral translation of the patella. Patellar enthesophyte formation again noted. No sizable suprapatellar joint effusion. There is amorphous calcific density in the suprapatellar recess, similar to prior. There is a degree of infrapatellar/patellar tendon soft tissue thickening, similar to prior. Primary Interpreting Staff: TIANNA JARQUIN DO, RADIOLOGIST (City Comptroller) /DDS TIANNA JARQUIN [facility] Mar 15, 2024 10:32 AM US CAROTID (BILATE RAL) (P): SABRINA CULLEN [id number] -1945 M Exm Date: MAR 15, 2024@10:32 Req Phys: OSIEL MONTANO Loc: [facility] DUSTY PHONE (Req'g Img Loc: Ultrasound Imaging Service: [place] [address] (Case [id number] COMPLETE) US CAROTID BILATERAL (US Detailed) CPT:88771 Reason for Study: CVD Clinical History: Please note that this study requires a 45min apt. time. IS NOT under investigation for COVID-19 or is COVID-19 negative Status post right carotid endarterectomy Responsible provider name and phone number to notify for critical findings if other than user placing the order and pager listed below: User placing orders pager: [phone] LAST CREATININE 1.2 (08/28/22) Report Status: Verified Date Reported: MAR 15, 2024 Date Verified: MAR 15, 2024 City Comptroller E-Sig:/ES/NEWTON MAYNARD MD Report: Bilateral Carotid Artery [...] that as of March 28, 2022 the [facility]invasive [facility] has adopted the carotid artery stenosis Duplex criteria endorsed by Intersocietal Accreditation Commission(IAC). The changes in criteria may explain differences in the degree of stenosis when compared with prior exams. I, NEWTON MAYNARD, have reviewed the images and report. Primary Interpreting Staff: NEWTON MAYNARD MD, RADIOLOGIST (City Comptroller) Primary Interpreting Resident: GAMAL HUERTA MD, CLAY WORKER /[facility] NEWTON MAYNARD [facility] Encounter Notes: All associated encounter notes This section contains the clinical notes associated to the Encounter. Date/Time Encounter Note(s) Provider Source Apr 14, 2024 12:44 PM CARDIOLOGY OUTPATI ENT NOTE: LOCAL TITLE: CARDIOLOGY CLINIC TECHNOLOGIST NOTE STANDARD TITLE: CARDIOLOGY OUTPATIENT NOTE DATE OF NOTE: APR 14, 2024@12:44 ENTRY DATE: APR 14, 2024@12:44:42 AUTHOR: GIORGI DONALDSON EXP COSIGNER: URGENCY: STATUS: COMPLETED Event Monitor ZIO Monitor Clinical indication for ZIO: I49.3 Enrolled patient. Assessed monitor placement. Prepped skin. - SHAVE area if hair is present - ABRADE skin, applying pressure for 40 broad strokes -10 times diagonally left, diagonally right, across and down (40 times total). - CLEAN skin thoroughly with both alcohol pads. Let dry for 1 minute. Applied monitor. Activate ZIO Monitor. Education given to patient along with ZIO Patient Instructions Pamphlet and Button Press Log. Date to remove patch: 04/21/24 Instructed to return the monitor by mail along with the log book in the pre- addressed return box and drop into [employer] mailbox. Registered device with [employer]; serial number: [id number] /es/ GIORGI DONALDSON CUSTODIAL OPERATIONS MANAGER Signed: 04/14/2024 12:45 GIORGI DONALDSON [facility]
--- OUTSIDE RECORDS SUMMARY | 2024-09-05 16:33 | XMS_ITS | Encounter Summary ---
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 Date/Time Encounter Type Encounter Description Reason Provider Source Jul 01, 2024 01:45 PM OFFICE O/P EST MOD 30 MIN PRIMARY CARE/MEDICINE ICD-10-CM M25.551 Pain in right hip DESTINI JJ Encounter Template Text not used by [facility] Assessments - Encounter Diagnoses This section includes the primary and secondary diagnoses documented for the Encounter. Date/Time Primary/Secondary Diagnosis Diagnosis Name Provider Source Jul 01, 2024 02:35 PM PRIMARY Pain in right hip PARVIZDESTINI [facility] Jul 01, 2024 02:35 PM [facility] nursing home (current[facility] Jul 01, 2024 02:35 PM SECONDARY Other specified postprocedural states [facility] Jul 01, 2024 02:35 PM SECONDARY Paresthesia of skin [facility] Jul 01, 2024 02:35 PM SECONDARY Presence of left artificial knee [facility] Plan of Treatment: Future Appointments (+ 6 months) and Future Tests (+/- 45 days) The Plan of Treatment section includes future care activities for the patient from all [facility]. This section includes future appointments and future orders which are active, pending or scheduled. Future Appointments This section includes appointments that were scheduled to occur 6 months from the date of the Encounter, up to a maximum of 20 appointments. The data comes from all [facility]. Appointment Date/Time Appointment Type Appointme nt Facility Name Jul 28, 2024 11:00 AM AMBULATORY - SURGERY [facility] Aug 03, 2024 01:00 PM AMBULATORY - NONE [facility] Aug 16, 2024 01:30 PM AMBULATORY - SURGERY [facility] Aug 16, 2024 02:30 PM AMBULATORY - NONE [facility] Aug 16, 2024 03:45 PM AMBULATORY - NONE [facility] Sep 02, 2024 09:30 AM AMBULATORY - SURGERY [facility] Sep 16, 2024 10:45 AM AMBULATORY - MEDICINE [facility] Active, Pending, and Scheduled Orders This section includes a listing of several types of active, pending, and scheduled orders, including clinic medications orders, diagnostic test orders, procedure orders and consult orders; where thestart date of the order is 45 days before the date of the Encounter or 45 days after the date of the Encounter. The data comes from all [facility]. Test Date/Time Test Type Test Details Facility Name Jul 14, 2024 08:00 AM Laboratory - Chemi stry Order ALT/SGPT PLASMA SP ONCE [facility] Jul 14, 2024 08:00 AM Laboratory - Chemi stry Order AST/SGOT PLASMA SP ONCE [facility] Lab Results: +/- 30 days of the encounter This section includes the Chemistry and Hematology Lab Results on record with [place] for the patient. Radiology Reports and Pathology Reports are provided separately, in subsequent sections. Lab Results This section contains the Chemistry/Hematology Results that were resulted 30 days before or 30 daysafter the date of the Encounter. Date/Time Source Result Type Result - Unit Interpretation Reference Range Comment Jul 01, 2024 11:49 AM [facility] ANTI-HEP C(EIA) Specimen Type: SERUM No comment entered. Ordering Provider: DESTINI JJ Report Released Date/Time: Jul 10, 2023 02:21 PM Reporting Lab: [facility] [id number] Performing Lab: [facility] [id number] ANTI-HEP C(EIA) NEGATIVE NEGATIVE Jul 01, 2024 11:49 AM [facility] BASIC METABOLIC PANEL+MG Specimen Type: PLASMA No comment entered. Ordering Provider: DESTINI JJ Report Released Date/Time: Jul 10, 2023 02:20 PM Reporting Lab: [facility] [id number] Performing Lab: [facility] [id number] CREATININE 1.2 mg/dL 0.7-1.2 UREA NITROGEN 27 mg/dL H 8-26 GLUCOSE 104 mg/dL H 70-100 SODIUM 139 mmol/L 136-145 POTASSIUM 3.7 mmol/L 3.5-5.1 CHLORIDE 108 mmol/L H 98-107 CO2 23 mmol/L 22-29 CALCIUM 10.1 mg/dL 8.4-10.2 MAGNESIUM 2.0 mg/dL 1.6-2.6 ANION GAP 8 mmol/L 5-15 .CREAT EGFR(CKD-EPI ) 61 >60 Jul 01, 2024 11:49 AM [facility] CBC Specimen Type: BLOOD No comment entered. Ordering Provider: DESTINI JJ Report Released Date/Time: Jul 10, 2023 02:20 PM Reporting Lab: [facility] [id number] Performing Lab: [facility] [id number] WBC 6.8 4.0-11.0 RBC 5.01 4.60-6.20 HGB 14.4 g/dL 13.5-17.9 HCT 46.7 41.0-54.0 MCV 93.2 fL 80.0-100.0 MCH 28.7 pg 27.0-33.0 MCHC 30.8 g/dL L 32.0-37.5 PLT 247 150-400 MPV 9.3 fL 9.1-13.0 RDW 13.4 11.5-14.5 Jul 01, 2024 11:49 AM [facility] B 12 Specimen Type: SERUM No comment entered. Ordering Provider: DESTINI JJ Report Released Date/Time: Jul 01, 2024 02:20 PM Reporting Lab: [facility] [id number] Performing Lab: [facility] [id number] B 12 374 pg/mL 213-816 Jul 01, 2024 11:49 AM [facility] HEMOGLOBIN A1C Specimen Type: BLOOD Comment: Values obtained from A1C measurements can vary. For typical A1C assays, a reported value of 7.0 could actually be between 6.7 and 7.3 if measured by a reference method. A reported value of 9.0 could actually be between 8.7 and 9.3. Ref: http://www.ngs p.org/CAPdata. asp Ordering Provider: DESTINI JJ Report Released Date/Time: Jul 01, 2024 02:17 PM Reporting Lab: [facility] [id number] Performing Lab: [facility] [phone] HEMOGLOBIN A1C 5.4 4.0-6.0 Vital Signs: All taken on the encounter date This section contains inpatient and outpatient Vital Signs collected on the date of the Encounter. Date/Time Temperature Pulse Blood Pressure Respiratory Rate SP02 Pain Height Weight Body Mass Index Source Jul 01, 2024 12:10 PM 97.5 64 115/73 16 97 4 72 245 33 [facility] Social History: Smoking Status (Most current) and Tobacco Use (All prior to encounter date) This section includes the most current, and the historical, smoking and tobacco- related health factors from the [place] facility where the Encounter took place. Current Smoking Status This section includes the most current smoking, or tobacco-related health factor, from the [place] facility where the Encounter took place. Date/Time Current Smoking Status Comment Deandre nowak Jul 01, 2024 01:45 PM VA-TOBACCO USE FORMER CIGARETTES [facility] Tobacco Use History This section includes a history of the smoking, or tobacco-related health factors, that were collected on or before the date of the Encounter. The data comes from the [place] facility where the Encounter took place. Date/Time Smoking Status/Tobacco Use Comment F acility Jul 01, 2024 01:45 PM VA-TOBACCO USE FORMER CIGARETTES [facility] Jul 10, 2023 01:45 PM VA-TOBACCO FORMER USER [facility] Jul 10, 2023 01:45 PM VA-TOBACCO QUIT 15 YRS OR MORE [facility] Jun 13, 2022 01:15 PM VA-TOBACCO FORMER USER [facility] Jun 13, 2022 01:15 PM [...] ALL of a patient's completed or amended [place] Advance and Rescinded Directives. The entries below indicate that a directive exists for the patient, but an actual copy is not included with this document. The data comes from all [facility]. Date Advance Directives Provider Source Apr 29, 2016 CLINICAL WARNING SANGEETA ALVARES [facility] 2014 CLINICAL WARNING ISAAC DARBY [facility] Apr 01, 2005 ADVANCE DIRECTIVE VALERIE MILLAN [facility] Encounter Notes: All associated encounter notes This section contains the clinical notes associated to the Encounter. Date/Time Encounter Note(s) Provider Source 2024 12:56 PM ADDENDUM: LOCAL TITLE: Addendum STANDARD TITLE: ADDENDUM DATE OF NOTE: 2024@12:56:53 ENTRY DATE: 2024@12:56:54 AUTHOR: DESTINI JJ EXP COSIGNER: URGENCY: STATUS: COMPLETED 08/03/24- [facility]. myocardial perfusion study neg for ischemia. EF 60%. plz inform vet of normal stress test results. thx. /es/ Destini Jj MD Physician Signed: 2024 12:58 Receipt Acknowledged By: 2024 13:57 /es/ VALERIE MINAYA Registered Nurse --- Original Document --- 07/01/24 MEDICINE CLINIC NOTE: Nurse's notes reviewed from today. 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 # left knee OA: waiting for knee replacement. ortho referral done for [facility] ortho consult. # peripheral neuropathy symptoms for 3 yrs. stable. plan: check B12 and A1c. mail out capsaicin. # BPH: stable symptoms on finasteride and tamsulosin. # h/o Rt CEA / bovine patch repair in 08/2022. cont ASA alongwith eliquis as per vascular, cont statin. # HTN: stable. 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 has been following with EP. # CKD: Cr wnl. # Obstructive sleep apnea-continue CPAP HM: - etoh: once a month - tobacco: quit 50 yrs ago. - lives alone. brother lives nearby. RTC for annual HPI/ROS: - Rt hip arthritis is really bothering him. he wants surgery on this at [place] in [place]. - he had left knee TKR done last year. doing fairly well. - numbness/ tingling b/l toes for 3 years. stable. - his stress was not scheduled, needs help with it. Active problems - Computerized Problem List is [...] - right eye, jun 2022, sees local watch band assembler 18. History of carotid endarterectomy - Rt CEA and bovine patch repair, 08/2022 19. 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 Medication Reconciliation: Education Evaluations *Was medication education provided for NEW medications or CHANGES to medications? (including medication name, dose, route, reason for use, and potential side effects). Yes. Education on what medications? New medication(s) Comment: capsaicin cream Education provided to the following: Patient Type of education provided: Written materials Assessment of patient understanding of education content. Demonstrates TERATOGENIC MED & CONTRACEPTION REVIEW (Optional)... MEDICATION RECONCILIATION Active and Recently Outpatient Medications (including Supplies): Issue Date Status Last Fill Active Outpatient Medications Refills Expiration 1) APIXABAN 5MG TAB Qty: 180 for 90 days Sig: ACTIVE (S) Issue: 04/25/24 TAKE ONE TABLET BY MOUTH EVERY 12 HOURS Refills: 3 Last : 08/02/24 Indication: TO TREAT AND/OR PREVENT BLOOD Expr : 04/26/25 CLOTS 2) ASPIRIN 81MG EC TAB Qty: 120 for 90 days ACTIVE (S) Issue: 11/10/23 Sig: TAKE ONE TABLET BY MOUTH EVERY DAY Refills: 0 Last : 07/28/24 DO NOT CHEW Expr : 11/10/24 Indication: TO PREVENT BLOOD CLOTS 3) ATORVASTATIN CALCIUM 40MG TAB Qty: 90 for 90 ACTIVE (S) Issue: 04/25/24 days Sig: TAKE ONE TABLET BY MOUTH AT Refills: 3 Last : 07/29/24 BEDTIME Expr : 04/26/25 Indication: FOR CHOLESTEROL 4) FINASTERIDE 5MG TAB Qty: 30 for 30 days Sig: ACTIVE (S) Issue: 04/25/24 TAKE ONE TABLET BY MOUTH EVERY DAY Refills: 1 Last : 07/14/24 Indication: FOR PROSTATE Expr : 04/26/25 5) HYDROCHLOROTHIAZIDE 12.5MG TAB Qty: 90 for ACTIVE (S) Issue: 04/25/24 90 days Sig: TAKE ONE TABLET BY MOUTH EVERY Refills: 3 Last : 07/31/24 DAY Expr : 04/26/25 Indication: FOR BLOOD PRESSURE 6) LIDOCAINE 5% PATCH Qty: 180 for 90 days Sig: ACTIVE Issue: 07/17/23 APPLY ONE PATCH FOR EACH KNEE TOPICALLY Refills: 0 Last : 06/06/24 EVERY DAY NEEDED Expr : 07/17/24 Indication: FOR UP TO 12 HOURS FOR PAIN 7) LISINOPRIL 40MG TAB Qty: 90 for 90 days Sig: ACTIVE (S) Issue: 11/10/23 TAKE ONE TABLET BY MOUTH EVERY DAY FOR HEART Refills: 0 Last : 07/28/24 AND BLOOD PRESSURE Expr : 11/10/24 8) LORATADINE 10MG TAB Qty: 90 for 90 days Sig: ACTIVE Issue: 10/20/23 TAKE ONE TABLET BY MOUTH EVERY DAY NEEDED Refills: 3 Last : 10/20/23 Indication: FOR ALLERGIES Expr : 10/20/24 9) METOPROLOL SUCCINATE 25MG SA TAB Qty: 90 for ACTIVE (S) Issue: 12/07/23 90 days Sig: TAKE ONE TABLET BY MOUTH EVERY Refills: 2 Last : 07/27/24 DAY Expr : 12/07/24 10) TAMSULOSIN HCL 0.4MG CAP Qty: 90 for 90 days ACTIVE Issue: 01/19/24 Sig: TAKE ONE CAPSULE BY MOUTH EVERY EVENING Refills: 2 Last : 07/06/24 Indication: FOR PROSTATE Expr : 01/19/25 Issue Date Status Last Fill Pending Outpatient Medications Refills Expiration 1) CAPSAICIN 0.025% CREAM Qty: 60 Sig: APPLY TO PENDING AFFECTED AREA TOPICALLY THREE TIMES A DAY Refills: 0 Indication: FOR PAIN Issue Date Status Last Fill Inactive Outpatient Medications Refills Expiration 1) APIXABAN 5MG TAB Qty: 180 for 90 days Sig: DISCONTINUED Issue: 05/25/23 TAKE ONE TABLET BY MOUTH EVERY 12 HOURS Refills: 0 Last : 05/04/24 Indication: TO TREAT AND/OR PREVENT BLOOD Expr : 05/25/24 CLOTS 2) ATORVASTATIN CALCIUM 40MG TAB Qty: 90 for 90 DISCONTINUED Issue: 06/04/23 days Sig: TAKE ONE TABLET BY MOUTH AT Refills: 0 Last : 04/30/24 BEDTIME Expr : 06/04/24 Indication: FOR CHOLESTEROL 3) DOCUSATE NA 50MG/SENNOSIDES 8.6MG TAB Qty: DISCONTINUED Issue: 03/13/23 100 for 90 days Sig: TAKE 1 TABLET BY MOUTH Refills: 0 Last : 01/17/24 TWICE A DAY NEEDED Expr : 03/13/24 Indication: FOR CONSTIPATION 4) DOCUSATE NA 50MG/SENNOSIDES 8.6MG TAB Qty: Issue: 03/10/24 100 for 50 days Sig: TAKE 1 TABLET BY MOUTH Refills: 0 Last : 03/14/24 TWICE A DAY NEEDED Expr : 04/29/24 Indication: FOR CONSTIPATION 5) FINASTERIDE 5MG TAB Qty: 30 for 30 days Sig: DISCONTINUED Issue: 11/13/23 TAKE ONE TABLET BY MOUTH EVERY DAY Refills: 0 Last : 03/09/24 Indication: FOR PROSTATE Expr : 11/13/24 6) HYDROCHLOROTHIAZIDE 12.5MG TAB Qty: 90 for DISCONTINUED Issue: 05/18/23 90 days Sig: TAKE ONE TABLET BY MOUTH EVERY Refills: 0 Last : 05/02/24 DAY Expr : 05/18/24 Indication: FOR BLOOD PRESSURE 7) LIDOCAINE 5% PATCH Qty: 60 for 60 days Sig: DISCONTINUED Issue: 07/15/23 APPLY 1 PATCH TOPICALLY EVERY DAY NEEDED Refills: 3 Last : 08/09/23 Indication: FOR UP TO 12 HOURS FOR PAIN Expr : 07/15/24 8) METOPROLOL SUCCINATE 50MG SA TAB Qty: 45 for DISCONTINUED Issue: 12/07/23 90 days Sig: TAKE ONE-HALF TABLET BY MOUTH Refills: 2 Last : 03/08/24 EVERY DAY Expr : 12/07/24 9) PSYLLIUM ORAL PWD Qty: 1170 for 90 days Sig: Issue: 03/13/23 TAKE 1 TABLESPOONFUL BY MOUTH EVERY DAY Refills: 3 Last : 03/17/23 Indication: FOR REGULAR BOWEL MOVEMENTS Expr : 03/13/24 10) TAMSULOSIN HCL 0.4MG CAP Qty: 90 for 90 days DISCONTINUED Issue: 04/27/23 Sig: TAKE ONE CAPSULE BY MOUTH EVERY EVENING Refills: 0 Last : 01/18/24 Indication: FOR PROSTATE Expr : 04/27/24 11) VANICREAM TOP CREAM Qty: 454 for 90 days Issue: 03/13/23 Sig: APPLY THIN LAYER TOPICALLY TWICE A DAY Refills: 3 Last : 03/17/23 Indication: FOR DRY SKIN Expr : 03/13/24 22 Total Medications /luis eduardo/ Destini Jj MD Physician Signed: 07/01/2024 14:35 07/01/2024 ADDENDUM STATUS: COMPLETED stress test was ordered by EP but fell through. I have requested it again. /tia Jj MD Physician Signed: 07/01/2024 14:35 DESTINI JJ [facility] Jul 04, 2024 08:29 AM LETTERS: LOCAL TITLE: FOLLOW UP RESULTS LETTER STANDARD TITLE: LETTERS DATE OF NOTE: JUL 04, 2024@08:29 ENTRY DATE: JUL 04, 2024@08:29:43 AUTHOR: DESTINI JJ EXP COSIGNER: URGENCY: STATUS: COMPLETED [facility] [address] [place] [address] Jun SABRINA ASH SUBHASH [address] [facility] [id number] Dear [place]: I am writing to inform you of the results of the tests you had done at the [facility]. The tests below were performed and are satisfactory unless otherwise noted. - Complete Blood Count (red/white blood cell counts and platelets) White count: WBC 6.8 (07/01/24) (normal is 4.0-11.0) Hemoglobin: HGB 14.4 (07/01/24) (normal Male is 13.5-17.9) (normal Female is 11.5-16) Hematocrit: HCT 46.7 (07/01/24) (normal Male is 41-54) (normal Female is 34.5-48) Platelets: PLT 247 (07/01/24) (normal is 150-400) - Electrolytes including sodium and potassium SODIUM 139 (07/01/24) (normal is 137-144) POTASSIUM 3.7 (07/01/24) (normal is 3.5-5.0) CHLORIDE 108 H (07/01/24) (normal is 98-107) CO2 23 (07/01/24) (normal is 22-29) UREA NITROGEN 27 H (07/01/24) (normal Male is 8-26) (normal Female is 8-20) CREATININE 1.2 (07/01/24) (normal Male is 0.7-1.2) (normal Female is 0.5-1.0) GLUCOSE 104 H (07/01/24) (normal is 70-100) CALCIUM 10.1 (07/01/24) (normal is 8.4-10.2) MAGNESIUM 2.0 (07/01/24) (normal is 1.6-2.6) EGFR (01/09) 01/14/2021@1442 54 L CREATININE EGFR (CKD-EPI) 07/01/2024@1149 61 (normal is >/=60) - Glycosylated Hemoglobin (good diabetic control if less than 7.0) HEMOGLOBIN A1C 5.4 (07/01/24) (normal range is 4.0-6.0) POC HGB A1C____ - Vitamin B12/Folate Level SLT - Lab Tests Selected Collection DT Specimen Test Name Result Units Ref Range 07/01/2024 11:49 SERUM B 12 374 pg/mL 213 - 046 Comments: If you have any further questions or problems, please contact our nursing staff or me at the following number: [phone] ([facility]) Sincerely, Destini Jj MD Physician DESTINI JJ [facility] Jul 01, 2024 12:14 PM INTERNAL MEDICINE OUTPATIENT NOTE: LOCAL TITLE: MEDICINE CLINIC NURSING NOTE STANDARD TITLE: INTERNAL MEDICINE OUTPATIENT NOTE DATE OF NOTE: JUL 01, 2024@12:14 ENTRY DATE: JUL 01, 2024@12:14:37 AUTHOR: LEWIS CATES EXP COSIGNER: URGENCY: STATUS: COMPLETED TYPE OF VISIT: Appointment Check In Type of appointment: In-person appointment REASON FOR VISIT: annual ALLERGIES: Patient has answered NKA VITAL SIGNS: Blood Pressure: 115/73 (07/01/2024 12:10) Pulse: 64 (07/01/2024 12:10) Respiration: 16 (07/01/2024 12:10) Temperature: 97.5 F [36.4 C] (07/01/2024 12:10) Weight: 245 lb [111.13 kg] (07/01/2024 12:10) Height: 72 in [182.9 cm] (07/01/2024 12:10) BMI: 33.3 O2 Sat: 97% (07/01/2024 12:10) Pain: 4 (07/01/2024 12:10) MEDICATION Over the Counter/Herbal Medications: The patient denies taking any outside medications or herbals. Suicide Screen: C-SSRS Screening [place] Suicide Severity Rating Scale (C-SSRS) screener 1. Over the past month, have you wished you were or wished you could go to sleep and not wake up? No 2. Over the past month, have you had any actual thoughts of killing yourself? No 3. Over the past month, have you been thinking about how you might do this? Response not required due to responses to other questions. 4. Over the past month, have you had these thoughts and had some intention of acting on them? Response not required due to responses to other questions. 5. Over the past month, have you started to work out or worked out the details of how to kill yourself? Response not required due to responses to other questions. 6. If yes, at any time in the past month did you intend to carry out this plan? Response not required due to responses to other questions. 7. In your lifetime, have you ever done anything, started to do anything, or prepared to do anything to end your life (for example, collected pills, obtained a gun, gave away valuables, went to the roof but didn't jump)? No 8. If YES, was this within the past 3 months? Response not required due to responses to other questions. Tobacco Use Screening: The patient is a former cigarette smoker. The patient has never used other types of tobacco. Depression Screening: Perform PHQ-2 A PHQ-2 screen was performed. The score was 0 which is a negative screen for depression. Over the past two weeks, how often have you been bothered by the following problems? 1. Little interest or pleasure in doing things Not at all 2. Feeling down, depressed, or hopeless Not at all Alcohol Use Screen (AUDIT-C): Alcohol Screen: SCREEN FOR ALCOHOL (AUDIT-C) An alcohol screening test (AUDIT-C) was negative (score=1). 1. How often did you have a drink containing alcohol in the past year? Consider a drink to be a 12 ounce can or bottle of regular beer, 8 ounces of malt liquor, a 5 ounce glass of table wine, or a 1.5 ounce shot of liquor (like scotch, gin, or vodka). Monthly or less 2. How many drinks containing alcohol did you have on a typical day when you were drinking in the past year? Zero drinks 3. How often did you have six or more drinks on one occasion in the past year? Never RSV Immunization: Respiratory Syncytial Virus (RSV) Vaccine: Refused UNYQ (Abrysvo, RSVpreF vaccine). Immunization: RSV, BIVALENT, PROTEIN SUBUNIT RSVPREF, DILUENT RECONSTITUTED, 0.5 ML, PF Refusal Reason: PATIENT DECISION Patient refuses all immunization(s) in the RSV group Date Documented: 07/01/24 12:16 Nursing Annual Screening: Whole Health Screen is due OR due soon (within 90 days). Whole Health Screening Why is addressing your overall health important to you? still able to drive What do you want your health for (why do you want to be healthy)? less pain Fall History Screen During the past 12 months, have you had any falls? Patient does not report any falls in the past 12 months. MEDICATIONS: Patient is on one of the following medication classes: Antihypertensives, Antidepressants, Antipsychotics, Diuretics, or Controlled substance medication used for pain. FALL RISK ADVICE: Fall Risk Advice provided. Handout entitled Be Safe: Prevent Falls reviewed and given to patient and/or significant other. Script Talk Screen Are you able to read your prescription bottles with your glasses, magnifiers or other aids? Yes or patient not taking any prescriptions. Skin Screen Patient reports any current pressure ulcers, a history of pressure ulcers, or a wound from a medical transcription editor or Patient is bed-confined or a wheelchair-user or Patient requires assistance to transfer/change position No, Skin Screen is Negative Home Abuse/Violence Screen Is your home free of abuse and violence? Yes MOVE! Program Screen Body Mass Index (BMI)= 33.3 [place]: Collection DT Specimen Test Name Result Units Ref Range 01/23/2022 14:24 BLOOD HEMOGLOBIN A1C 5.3 % 4.0 - 6.0 [place] Hgb A1C: No data available [place] Hgb A1C: No data available Point of Care Hgb A1C: POC HGB A1C____ Outpatient Nutrition Screen Body Mass Index (BMI)= 33.3 [place]: Collection DT Specimen Test Name Result Units Ref Range 01/23/2022 14:24 BLOOD HEMOGLOBIN A1C 5.3 % 4.0 - 6.0 [place] Hgb A1C: No data available [place] Hgb A1C: No data available Point of [...] Screen BARRIERS/SPECIAL NEEDS: Physical limitations Hearing limitations Visual limitations PREFERRED STYLE OF LEARNING: Listening Client Assistive Service (ALFREDITO) Screen Does the patient require assistance with outpatient visit? No /es/ LEWIS CATES DUPLICATOR PUNCH OPERATOR Signed: 07/01/2024 12:17 LEWIS CATES [facility] Jul 01, 2024 08:12 AM INTERNAL MEDICINE NOTE: LOCAL TITLE: MEDICINE CLINIC NOTE STANDARD TITLE: INTERNAL MEDICINE NOTE DATE OF NOTE: JUL 01, 2024@08:12 ENTRY DATE: JUL 01, 2024@08:12:16 AUTHOR: DESTINI JJ EXP COSIGNER: URGENCY: STATUS: COMPLETED MEDICINE CLINIC NOTE Has ADDENDA Nurse's notes reviewed from today. 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 # left knee OA: waiting for knee replacement. ortho referral done for [facility] ortho consult. # peripheral neuropathy symptoms for 3 yrs. stable. plan: check B12 and A1c. mail out capsaicin. # BPH: stable symptoms on finasteride and tamsulosin. # h/o Rt CEA / bovine patch repair in 08/2022. cont ASA alongwith eliquis as per vascular, cont statin. # HTN: stable. 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 has been following with EP. # CKD: Cr wnl. # Obstructive sleep apnea-continue CPAP HM: - etoh: once a month - tobacco: quit 50 yrs ago. - lives alone. brother lives nearby. RTC for annual HPI/ROS: - Rt hip arthritis is really bothering him. he wants surgery on this at [place] in [place]. - he had left knee TKR done last year. doing fairly well. - numbness/ tingling b/l toes for 3 years. stable. - his stress was not scheduled, needs help with it. Active problems - Computerized Problem List is [...] - right eye, jun 2022, sees local watch band assembler 18. History of carotid endarterectomy - Rt CEA and bovine patch repair, 08/2022 19. 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 Medication Reconciliation: Education Evaluations *Was medication education provided for NEW medications or CHANGES to medications? (including medication name, dose, route, reason for use, and potential side effects). Yes. Education on what medications? New medication(s) Comment: capsaicin cream Education provided to the following: Patient Type of education provided: Written materials Assessment of patient understanding of education content. Demonstrates TERATOGENIC MED & CONTRACEPTION REVIEW (Optional)... MEDICATION RECONCILIATION Active and Recently Outpatient Medications (including Supplies): Issue Date Status Last Fill Active Outpatient Medications Refills Expiration 1) APIXABAN 5MG TAB Qty: 180 for 90 days Sig: ACTIVE (S) Issue: 04/25/24 TAKE ONE TABLET BY MOUTH EVERY 12 HOURS Refills: 3 Last : 08/02/24 Indication: TO TREAT AND/OR PREVENT BLOOD Expr : 04/26/25 CLOTS 2) ASPIRIN 81MG EC TAB Qty: 120 for 90 days ACTIVE (S) Issue: 11/10/23 Sig: TAKE ONE TABLET BY MOUTH EVERY DAY Refills: 0 Last : 07/28/24 DO NOT CHEW Expr : 11/10/24 Indication: TO PREVENT BLOOD CLOTS 3) ATORVASTATIN CALCIUM 40MG TAB Qty: 90 for 90 ACTIVE (S) Issue: 04/25/24 days Sig: TAKE ONE TABLET BY MOUTH AT Refills: 3 Last : 07/29/24 BEDTIME Expr : 04/26/25 Indication: FOR CHOLESTEROL 4) FINASTERIDE 5MG TAB Qty: 30 for 30 days Sig: ACTIVE (S) Issue: 04/25/24 TAKE ONE TABLET BY MOUTH EVERY DAY Refills: 1 Last : 07/14/24 Indication: FOR PROSTATE Expr : 04/26/25 5) HYDROCHLOROTHIAZIDE 12.5MG TAB Qty: 90 for ACTIVE (S) Issue: 04/25/24 90 days Sig: TAKE ONE TABLET BY MOUTH EVERY Refills: 3 Last : 07/31/24 DAY Expr : 04/26/25 Indication: FOR BLOOD PRESSURE 6) LIDOCAINE 5% PATCH Qty: 180 for 90 days Sig: ACTIVE Issue: 07/17/23 APPLY ONE PATCH FOR EACH KNEE TOPICALLY Refills: 0 Last : 06/06/24 EVERY DAY NEEDED Expr : 07/17/24 Indication: FOR UP TO 12 HOURS FOR PAIN 7) LISINOPRIL 40MG TAB Qty: 90 for 90 days Sig: ACTIVE (S) Issue: 11/10/23 TAKE ONE TABLET BY MOUTH EVERY DAY FOR HEART Refills: 0 Last : 07/28/24 AND BLOOD PRESSURE Expr : 11/10/24 8) LORATADINE 10MG TAB Qty: 90 for 90 days Sig: ACTIVE Issue: 10/20/23 TAKE ONE TABLET BY MOUTH EVERY DAY NEEDED Refills: 3 Last : 10/20/23 Indication: FOR ALLERGIES Expr : 10/20/24 9) METOPROLOL SUCCINATE 25MG SA TAB Qty: 90 for ACTIVE (S) Issue: 12/07/23 90 days Sig: TAKE ONE TABLET BY MOUTH EVERY Refills: 2 Last : 07/27/24 DAY Expr : 12/07/24 10) TAMSULOSIN HCL 0.4MG CAP Qty: 90 for 90 days ACTIVE Issue: 01/19/24 Sig: TAKE ONE CAPSULE BY MOUTH EVERY EVENING Refills: 2 Last : 07/06/24 Indication: FOR PROSTATE Expr : 01/19/25 Issue Date Status Last Fill Pending Outpatient Medications Refills Expiration 1) CAPSAICIN 0.025% CREAM Qty: 60 Sig: APPLY TO PENDING AFFECTED AREA TOPICALLY THREE TIMES A DAY Refills: 0 Indication: FOR PAIN Issue Date Status Last Fill Inactive Outpatient Medications Refills Expiration 1) APIXABAN 5MG TAB Qty: 180 for 90 days Sig: DISCONTINUED Issue: 05/25/23 TAKE ONE TABLET BY MOUTH EVERY 12 HOURS Refills: 0 Last : 05/04/24 Indication: TO TREAT AND/OR PREVENT BLOOD Expr : 05/25/24 CLOTS 2) ATORVASTATIN CALCIUM 40MG TAB Qty: 90 for 90 DISCONTINUED Issue: 06/04/23 days Sig: TAKE ONE TABLET BY MOUTH AT Refills: 0 Last : 04/30/24 BEDTIME Expr : 06/04/24 Indication: FOR CHOLESTEROL 3) DOCUSATE NA 50MG/SENNOSIDES 8.6MG TAB Qty: DISCONTINUED Issue: 03/13/23 100 for 90 days Sig: TAKE 1 TABLET BY MOUTH Refills: 0 Last : 01/17/24 TWICE A DAY NEEDED Expr : 03/13/24 Indication: FOR CONSTIPATION 4) DOCUSATE NA 50MG/SENNOSIDES 8.6MG TAB Qty: Issue: 03/10/24 100 for 50 days Sig: TAKE 1 TABLET BY MOUTH Refills: 0 Last : 03/14/24 TWICE A DAY NEEDED Expr : 04/29/24 Indication: FOR CONSTIPATION 5) FINASTERIDE 5MG TAB Qty: 30 for 30 days Sig: DISCONTINUED Issue: 11/13/23 TAKE ONE TABLET BY MOUTH EVERY DAY Refills: 0 Last : 03/09/24 Indication: FOR PROSTATE Expr : 11/13/24 6) HYDROCHLOROTHIAZIDE 12.5MG TAB Qty: 90 for DISCONTINUED Issue: 05/18/23 90 days Sig: TAKE ONE TABLET BY MOUTH EVERY Refills: 0 Last : 05/02/24 DAY Expr : 05/18/24 Indication: FOR BLOOD PRESSURE 7) LIDOCAINE 5% PATCH Qty: 60 for 60 days Sig: DISCONTINUED Issue: 07/15/23 APPLY 1 PATCH TOPICALLY EVERY DAY NEEDED Refills: 3 Last : 08/09/23 Indication: FOR UP TO 12 HOURS FOR PAIN Expr : 07/15/24 8) METOPROLOL SUCCINATE 50MG SA TAB Qty: 45 for DISCONTINUED Issue: 12/07/23 90 days Sig: TAKE ONE-HALF TABLET BY MOUTH Refills: 2 Last : 03/08/24 EVERY DAY Expr : 12/07/24 9) PSYLLIUM ORAL PWD Qty: 1170 for 90 days Sig: Issue: 03/13/23 TAKE 1 TABLESPOONFUL BY MOUTH EVERY DAY Refills: 3 Last : 03/17/23 Indication: FOR REGULAR BOWEL MOVEMENTS Expr : 03/13/24 10) TAMSULOSIN HCL 0.4MG CAP Qty: 90 for 90 days DISCONTINUED Issue: 04/27/23 Sig: TAKE ONE CAPSULE BY MOUTH EVERY EVENING Refills: 0 Last : 01/18/24 Indication: FOR PROSTATE Expr : 04/27/24 11) VANICREAM TOP CREAM Qty: 454 for 90 days Issue: 03/13/23 Sig: APPLY THIN LAYER TOPICALLY TWICE A DAY Refills: 3 Last : 03/17/23 Indication: FOR DRY SKIN Expr : 03/13/24 22 Total Medications /luis eduardo/ Destini Jj MD Physician Signed: 07/01/2024 14:35 07/01/2024 ADDENDUM STATUS: COMPLETED stress test was ordered by EP but fell through. I have requested it again. /luis eduardo/ Destini Jj MD Physician Signed: 07/01/2024 14:35 2024 ADDENDUM STATUS: COMPLETED 08/03/24- [facility]. myocardial perfusion study neg for ischemia. EF 60%. plz inform vet of normal stress test results. stephania. /luis eduardo/ Destini Jj MD Physician Signed: 2024 12:58 Receipt Acknowledged By: 2024 13:57 /luis eduardo/ VALERIE MINAYA Registered Nurse 2024 ADDENDUM STATUS: COMPLETED Phoned pt to update on provider: >>>>>>>>>>>>>>>>>>>>>>> 08/03/24- [facility]. - Myocardial perfusion study neg for ischemia. EF 60%. - Plz inform vet of normal stress test results. stephania. /luis eduardo/ Destini Jj MD Physician Signed: 2024 12:58 >>>>>>>>>>>>>>>>>>>>> - Pt acknowledged providers RN: - Entered orders for Phlebotomy Supervisor - Pt would like to speak to Phlebotomy Supervisor to discuss his Health Care Directive and update IF NEEDED. - Pt also wants discuss Power Of Musculoskeletal Physiotherapist forms (Financial and Medical). Pt has questions. pt will be at the [place] for other medical appt would like to schedule appt with Phlebotomy Supervisor to discuss. * Appointment at the [place] September 02, 2024 Dental appt. /luis eduardo/ VALERIE MINAYA Registered Nurse Signed: 2024 14:17 DESTINI JJ [facility]
--- OUTSIDE RECORDS SUMMARY | 2024-09-05 16:34 | XMS_ITS | Encounter Summary ---
Author Name [facility] [place] [facility] [place] Address [address] [place] [address] Care Team Providers Care Keycase Assembler Name Role Phone DESTINI JJ Primary Care Provider Unavaildewayne e Insurance Providers: All historical and current [...] Hernández's Name Patient's Relationship to Policy Hernández [facility] (WNR) MEDICARE ADVANTAGE [facility] (WNR) Jun 08, 2019 [id number] SUBHASH,BE RNA PATIENT Selected Encounter This section includes the information on record at [place] for the Encounter. Date/Time Encounter Type Encounter Description Reason Provider Source Jun 02, 2024 12:30 PM HEARING AID FITTING/CHECKIN G AUDIOLOGY ICD-10-CM H90.3 Sensorineural hearing loss, bilateral NANDA GARCIA Encounter Template Text not used by [facility] Assessments - Encounter Diagnoses This section includes the primary and secondary diagnoses documented for the Encounter. Date/Time Primary/Secondary Diagnosis Diagnosis Name Provider Source Jun 02, 2024 01:13 PM PRIMARY Sensorineural hearing loss, bilateral NANDA GARCIA [facility] Jun 02, 2024 01:13 PM SECONDARY Encounter for fitting and adjustment of hearing aid NANDA GARCIA [facility] Jun 02, 2024 01:13 PM SECONDARY Tinnitus, bilateral NANDA GARCIA [facility] Plan of Treatment: Future Appointments (+ 6 months) and Future Tests (+/- 45 days) The Plan of Treatment section includes future care activities for the patient [facility] [place] [facility] This section includes future appointments and future orders which are active, pending or scheduled. Future Appointments This section includes appointments that were scheduled to occur 6 months from the date of the Encounter, up to a maximum of 20 appointments. The data comes from all [facility]. Appointment Date/Time Appointment Type Appointme nt Facility Name Jun 07, 2024 05:00 PM AMBULATORY - NONE [facility] Jul 01, 2024 12:45 PM AMBULATORY - NONE [facility] Jul 01, 2024 01:45 PM AMBULATORY - MEDICINE [facility] Jul 28, 2024 11:00 AM AMBULATORY - SURGERY [facility] Aug 03, 2024 01:00 PM AMBULATORY - NONE [facility] Aug 16, 2024 01:30 PM AMBULATORY - SURGERY [facility] Aug 16, 2024 02:30 PM AMBULATORY - NONE [facility] Aug 16, 2024 03:45 PM AMBULATORY - NONE [facility] Sep 02, 2024 09:30 AM AMBULATORY - SURGERY [facility] Sep 16, 2024 10:45 AM AMBULATORY - MEDICINE [facility] Active, Pending, and Scheduled Orders This section includes a listing of several types of active, pending, and scheduled orders, including clinic medications orders, diagnostic test orders, procedure orders and consult orders; where the start date of the order is 45 days before the date of the Encounter or 45 days after the date of theEncounter. The data comes from all [facility]. Test Date/Time Test Type Test Details Facility Name Jul 14, 2024 08:00 AM Laboratory - Chemi stry Order AST/SGOT PLASMA SP ONCE [facility] Jul 14, 2024 08:00 AM Laboratory - Chemi stry Order ALT/SGPT PLASMA SP ONCE [facility] Lab Results: +/- 30 days of the [...] Range Comment Jul 01, 2024 11:49 AM [facility] ANTI-HEP C(EIA) Specimen Type: SERUM No comment entered. Ordering Provider: DESTINI JJ Report Released Date/Time: Jul 10, 2023 02:21 PM Reporting Lab: [facility] [id number] Performing Lab: [facility] [id number] ANTI-HEP C(EIA) NEGATIVE NEGATIVE Jul 01, 2024 11:49 AM [facility] CBC Specimen Type: BLOOD No comment entered. Ordering Provider: DESTINI JJ Report Released Date/Time: Jul 10, 2023 02:20 PM Reporting Lab: [facility] [id number] Performing Lab: [facility] [phone] WBC 6.8 4.0-11.0 RBC 5.01 4.60-6.20 HGB 14.4 g/dL 13.5-17.9 HCT 46.7 41.0-54.0 MCV 93.2 fL 80.0-100.0 MCH 28.7 pg 27.0-33.0 MCHC 30.8 g/dL L 32.0-37.5 PLT 247 150-400 MPV 9.3 fL 9.1-13.0 RDW 13.4 11.5-14.5 Jul 01, 2024 11:49 AM [facility] BASIC METABOLIC PANEL+MG Specimen Type: PLASMA No comment entered. Ordering Provider: DESTINI JJ Report Released Date/Time: Jul 10, 2023 02:20 PM Reporting Lab: [facility] [id number] Performing Lab: [facility] [id number] CREATININE 1.2 mg/dL 0.7-1.2 UREA NITROGEN 27 mg/dL H 8-26 GLUCOSE 104 mg/dL H 70-100 SODIUM 139 mmol/L 136-145 POTASSIUM 3.7 mmol/L 3.5-5.1 CHLORIDE 108 mmol/L H 98-107 CO2 23 mmol/L 22-29 CALCIUM 10.1 mg/dL 8.4-10.2 MAGNESIUM 2.0 mg/dL 1.6-2.6 ANION GAP 8 mmol/L 5-15 .CREAT EGFR(CKD-EPI ) 61 >60 Jul 01, 2024 11:49 AM [facility] HEMOGLOBIN A1C Specimen Type: BLOOD Comment: Values [...] Jul 01, 2024 02:17 PM Reporting Lab: [facility] [phone] Performing Lab: [facility] [phone] HEMOGLOBIN A1C 5.4 4.0-6.0 Jul 01, 2024 11:49 AM [facility] B 12 Specimen Type: SERUM No comment entered. Ordering Provider: DESTINI JJ Report Released Date/Time: Jul 01, 2024 02:20 PM Reporting Lab: [facility] [phone] Performing Lab: [facility] [phone] B 12 374 pg/mL 213-816 Social History: Smoking Status (Most current) and Tobacco Use (All prior to encounter date) This section includes the most current, and the historical, smoking and tobacco- related health factors from the [facility] where the Encounter took place. Current Smoking Status This section includes the most current smoking, or tobacco-related health factor, from the [place] facility where the Encounter took place. Date/Time Current Smoking Status Comment Deandre nowak Jul 10, 2023 01:45 PM VA-TOBACCO FORMER USER [facility] Tobacco Use History This section includes a history of the smoking, or tobacco-related health factors, that were collected on or before the date of the Encounter. The data comes from the [place] facility where the Encounter took place. Date/Time Smoking Status/Tobacco Use Comment F acility Jul 10, 2023 01:45 PM VA-TOBACCO QUIT 15 YRS OR MORE [facility] Jun 13, 2022 01:15 PM VA-TOBACCO FORMER USER [facility] Jun 13, 2022 01:15 PM VA-TOBACCO QUIT 15 YRS OR MORE [facility] Apr 29, 2021 12:45 PM VA-TOBACCO FORMER USER [facility] Apr 29, 2021 12:45 PM VA-TOBACCO QUIT 15 YRS OR MORE [facility] May 23, 2019 01:02 PM VA-TOBACCO NEVER USED [facility] Apr 01, 2018 12:53 PM VA-TOBACCO FORMER USER [facility] Apr 01, 2018 12:53 PM VA-TOBACCO QUIT 15 YRS OR MORE [facility] Jun 16, 2017 08:20 AM FORMER TOBACCO USER 7Y OR GREATE R [facility] May 12, 2016 11:04 AM FORMER TOBACCO USER 7Y OR GREATE R [facility] May 24, 2015 01:56 PM FORMER TOBACCO USER 7Y OR GREATE R [facility] Aug 09, 2014 09:40 AM LIFETIME NON-TOBACCO USER [facility] October 25, 2013 09:46 AM FORMER TOBACCO USER 7Y OR GREATE R [facility] Mar 17, 2007 02:35 PM FORMER TOBACCO USER 7Y OR GREATE R [facility] Mar 04, 2006 11:27 AM FORMER TOBACCO USE >1Y [facility] Advance Directives: All historical and current Section [...] the Encounter. Date/Time Encounter Note(s) Provider Source Jun 02, 2024 01:07 PM AUDIOLOGY NOTE: LOCAL TITLE: AUDIOLOGY CLINIC NOTE STANDARD TITLE: AUDIOLOGY NOTE DATE OF NOTE: JUN 02, 2024@13:07 ENTRY DATE: JUN 02, 2024@13:07:43 AUTHOR: HAIDER GARCIA COSIGNER: URGENCY: STATUS: COMPLETED SUBJECT: [facility] Service DIAGNOSIS: Bilateral sensorineural hearing loss Bilateral tinnitus Encounter for Fitting and Adjustment of Hearing Aid Reason for visit: Hearing aid service Location of visit (Room Number): 2S 117 Otoscopy: Free of excessive cerumen, normal anatomy bilaterally HISTORY: Patient seen for a hearing aid service/hearing aid check. HEARING AIDS: 12/17/22 [place] [id number] N/A 618 DERBY 09/27/22 SONOVA PHONAK AUDEO L90-RL KATHYA [id number] R 618 DERBY 09/27/22 SONOVA PHONAK AUDEO L90-RL KATHYA [id number] L 618 DERBY The following hearing aid problem/s were presented: Needs assistance pairing hearing aids to Bluetooth for call/audio streaming Needs assistance pairing Bryce Select and Bryce On for use in meetings (devices were recently mailed to him) ACTION: Hearing aids were cleaned and checked. A listening check revealed good sound quality. Waxguard(s) were replaced. 's cell phone was paired to the hearing aid(s). A practice phone call was completed to verify functionality. Education and counseling was completed regarding streaming capabilities. Bryce devices were paired to the hearing aid(s). Wayne was educated and counseled on use and features of the device(s) as well as how to connect them. The device(s) were demonstrated in the office to ensure both device functionality and understanding. Unable to get both Bryce Microphones to work in tandem; therefore, separate use was advised. Encouraged to primarily use the Bryce On device due to its automatic functionality and speech in noise capabilities. Unable to download the Bryce ayse to the 's phone today as he did not know his [employer] password for the [employer]. was provided with [employer] support phone number. Ordered more supplies in [place] for patient. PLAN: Follow up as medically indicated or if a change in hearing is noted. RTC for servicing of amplification as needed. Patient is in agreement with this plan. /luis eduardo/ HAIDER GARCIA STAFF PRIVACY DIRECTOR Signed: 06/02/2024 13:14 HAIDER GARCIA [facility]
--- OUTSIDE RECORDS SUMMARY | 2024-09-05 16:34 | XMS_ITS | Encounter Summary ---
Author Name [place] Address [address] [place] [address] Care Team Providers Care Vendor Manager Name Role Phone DESTINI JJ Primary [facility] Insurance Providers: All historical and current [...] Patient's Relationship to Policy Hernández [facility] (WNR) MEDICARE ADVANTAGE [facility] (WNR) Jun 08, 2019 [id number] [facility] PATIENT Selected Encounter This section includes the information on record at [place] for the Encounter. Date/Time Encounter Type Encounter Description Reason Provider Source Apr 26, 2024 12:52 PM EXT ECG>48HR<7D REV&INTERPJ AMB ECG MONITORING ICD-10-CM I49.3 Ventricular premature depolarization ANNI KIRKPATRICK IHDana Encounter Template Text not used by [place] Assessments - Encounter Diagnoses This section includes the primary and secondary diagnoses documented for the Encounter. Date/Time Primary/Secondary Diagnosis Diagnosis Name Provider Source Apr 26, 2024 12:59 PM PRIMARY [facility]ricular [facility] Apr 26, 2024 12:59 PM SECONDARY Encounter for screening for cardiovascular disorders ANNI KIRKPATRICK [facility] Plan of Treatment: Future Appointments (+ 6 months) and Future Tests (+/- 45 days) The Plan of Treatment section includes future care activities for the patient from all [place] [facility] This section includes future appointments and future orders which are active, pending or scheduled. Future Appointments This section includes appointments that were scheduled to occur 6 months from the date of the Encounter, up to a maximum of 20 appointments. The data comes from all [place] treatment [facility]. Appointment Date/Time Appointment Type Appointme nt Facility Name May 23, 2024 02:00 PM AMBULATORY - MEDICINE [facility] Jun 02, 2024 12:30 PM AMBULATORY - SURGERY [facility] Jun 07, 2024 05:00 PM AMBULATORY - NONE [facility] Jul 01, 2024 12:45 PM [facility] Jul 01, 2024 01:45 PM AMBULATORY - MEDICINE [facility] Jul 28, 2024 11:00 AM AMBULATORY - SURGERY [facility] Aug 03, 2024 01:00 PM [facility] Aug 16, 2024 01:30 PM AMBULATORY - SURGERY [facility] Aug 16, 2024 02:30 PM [facility] Aug 16, 2024 03:45 PM [facility] Sep 02, 2024 09:30 AM AMBULATORY - SURGERY [facility] Sep 16, 2024 10:45 AM AMBULATORY - MEDICINE [facility] Social History: Smoking Status (Most current) [...] 2023 01:45 PM VA-TOBACCO FORMER USER [facility] Tobacco Use History This section includes a history of the smoking, or tobacco-related health factors, that were collected on or before the date of the Encounter. The data comes from the [place] facility where the Encounter took place. Date/Time Smoking Status/Tobacco Use Comment F acility Jul 10, 2023 01:45 PM VA-TOBACCO QUIT [address] [facility] Jun 13, 2022 01:15 PM VA-TOBACCO FORMER USER [facility] Jun 13, 2022 01:15 PM VA-TOBACCO QUIT [address] [facility] Apr 29, 2021 12:45 PM VA-TOBACCO FORMER USER [facility] Apr 29, 2021 12:45 PM VA-TOBACCO QUIT [address] [facility] May 23, 2019 01:02 PM VA-TOBACCO NEVER USED [facility] Apr 01, 2018 12:53 PM VA-TOBACCO FORMER USER [facility] Apr 01, 2018 12:53 PM VA-TOBACCO QUIT [address] [facility] Jun 16, 2017 08:20 AM FORMER TOBACCO USER 7Y OR GREATE R [facility] May 12, 2016 11:04 AM FORMER TOBACCO USER 7Y OR GREATE R [facility] May 24, 2015 01:56 PM FORMER TOBACCO USER 7Y OR GREATE R [facility] Aug 09, 2014 09:40 AM LIFETIME NON-TOBACCO USER [facility] October 25, 2013 09:46 AM FORMER TOBACCO USER 7Y OR GREATE R [facility] Mar 17, 2007 02:35 PM FORMER TOBACCO USER 7Y OR GREATE R [facility] Mar 04, 2006 11:27 AM FORMER TOBACCO USE >1Y [facility] Advance Directives: All historical and current Section Date Range: From patient's date of to the date document was created. This section includes ALL of a patient's completed or amended [place] Advance and Rescinded Directives. The entries below indicate that a directive exists for the patient, but an actual copy is not included with this document. The data comes from all [facility]. Date Advance Directives Provider Source Apr 29, 2016 CLINICAL WARNING SANGEETA ALVARES [facility] 2014 CLINICAL WARNING ISAAC DARBY [facility] Apr 01, 2005 ADVANCE DIRECTIVE VALERIE MILLAN [facility] Radiology Reports: +/- 30 days of [...] the Encounter. The data comes from all [place] treatment facilities. Date/Time Radiology Report Provider Source Apr 25, 2024 02:45 PM HIP RIGHT 2 VIEWS W/PELVIS: SABRINA CULLEN [id number] -1945 Exm Date: APR 25, 2024@14:45 Req Phys: JORDI BLANCA Loc: [facility] ORTHO PA NARWHAL CONSULT ( Img Loc: MAIN X-RAY Service: [place] [address] (Case [id number] COMPLETE) HIP RIGHT 2 VIEWS W/PELVIS (RAD Detailed) CPT:85036 Reason for Study: right hip pain Clinical History: [place] IS NOT under investigation for COVID-19 or is COVID-19 negative right hip pain Responsible provider name and phone number to notify for critical findings if other than user placing the order and pager listed below: User placing orders pager: [phone] ortho LAST CREATININE 1.2 (07/10/23) Report Status: Verified Date Reported: APR 25, 2024 Date Verified: APR 25, 2024 Chro E-Sig:/ES/BLAKE MIXON MD Report: HIP RIGHT 2 VIEWS W/PELVIS 04/25/2024 2:45 PM History: right hip pain Comparison: CT 08/24/2022, x-ray 03/08/2021 Impression: Advanced degenerative osteoarthritis in the right hip with progression from comparison studies, including severe loss of joint space with nmym-rr-gjhl articulation, subchondral cystic change in the femoral head and acetabulum and osteophytic spurring. Left total hip arthroplasty, unchanged on the AP view of the pelvis. Degenerative changes in the sacroiliac joints. Vascular calcifications. Primary Interpreting Staff: BLAKE MIXON MD, STAFF RADIOLOGIST (Chro) /NRBLAKE BROOKS [facility] Apr 25, 2024 11:28 AM KNEE LEFT 4 VIEWS: SABRINA CULLEN [id number] 1945 Exm Date: APR 25, 2024@11:28 Req Phys: IvaniaUMBACHOFEW L Pat Loc: [facility] ORTHO 2WK NURSE PROCEDURE Img Loc: MAIN X-RAY Service: [place] [address] (Case [id number] COMPLETE) KNEE LEFT 4 VIEWS (RAD Detailed) CPT:84019 Reason for Study: Bilat knee DJD Clinical History: [place] IS NOT under investigation for COVID-19 or is COVID-19 negative Bilat knee DJD Responsible provider name and phone number to notify for critical findings if other than user placing the order and pager listed below: User placing orders pager: [phone] Ortho [phone] LAST CREATININE 1.2 (07/10/23) Report Status: Verified Date Reported: APR 25, 2024 Date Verified: APR 25, 2024 Chro E-Sig:/ES/TIANNA JARQUIN DO Report: EXAMINATION: KNEE LEFT [...] lateral aspect of the patellofemoral compartment with pqjm-xr-npxv articulation and associated subchondral sclerosis. There is also a degree of lateral translation of the patella. Patellar enthesophyte formation again noted. No sizable suprapatellar joint effusion. There is amorphous calcific density in the suprapatellar recess, similar to prior. There is a degree of infrapatellar/patellar tendon soft tissue thickening, similar to prior. Primary Interpreting Staff: TIANNA JARQUIN DO, RADIOLOGIST (Chro) /DDS TIANNA JARQUIN [facility] Apr 25, 2024 11:28 AM KNEE RIGHT 4 VIEWS : SABRINA CULLEN [id number] -1945 M Exm Date: APR 25, 2024@11:28 Req Phys: OEF LUGOW L Pat Loc: [facility] ORTHO 2WK NURSE PROCEDURE Img Loc: MAIN X-RAY Service: [place] [address] (Case [id number] COMPLETE) KNEE RIGHT 4 VIEWS (RAD Detailed) CPT:84762 Reason for Study: Bilat knee DJD Clinical History: IS NOT under investigation for COVID-19 or is COVID-19 negative Bilat knee DJD Responsible provider name and phone number to notify for critical findings if other than user placing the order and pager listed below: User placing orders pager: [phone] Ortho [phone] LAST CREATININE 1.2 (07/10/23) Report Status: Verified Date Reported: APR 25, 2024 Date Verified: APR 25, 2024 Chro E-Sig:/ES/TIANNA JARQUIN DO Report: EXAMINATION: KNEE LEFT [...] lateral aspect of the patellofemoral compartment with gqmg-ne-rpva articulation and associated subchondral sclerosis. There is also a degree of lateral translation of the patella. Patellar enthesophyte formation again noted. No sizable suprapatellar joint effusion. There is amorphous calcific density in the suprapatellar recess, similar to prior. There is a degree of infrapatellar/patellar tendon soft tissue thickening, similar to prior. Primary Interpreting Staff: TIANNA JARQUIN DO, RADIOLOGIST (Chro) /DDS TIANNA JARQUIN [facility] Encounter Notes: All associated encounter notes This section contains the clinical notes associated to the Encounter. Date/Time Encounter Note(s) Provider Source Apr 26, 2024 12:52 PM CARDIOLOGY DIAGNOS TIC STUDY CONSULT: LOCAL TITLE: EKG CONSULT STANDARD TITLE: CARDIOLOGY DIAGNOSTIC STUDY CONSULT DATE OF NOTE: APR 26, 2024@12:52 ENTRY DATE: APR 26, 2024@12:53:05 AUTHOR: ANNI KIRKPATRICK EXP COSIGNER: URGENCY: STATUS: COMPLETED SUBJECT: ZIO MONITOR REPORT ZIO MONITOR REPORT INDICATION: PVC burden Monitoring Duration: 6 days, 22 hours. INTERPRETATION: 1. Underlying rhythm was Sinus Rhythm ranging from 44 bpm to 86 bpm, average of 60 bpm. 2. Three Pauses occurred, the longest lasting 5.5 secs. 3. First Degree AV Block was present. 4. 10 runs of nonsustained Supraventricular Tachycardia occurred, the run with the fastest interval lasting 5 beats with a max rate of 140 bpm, the longest lasting 24.0 secs with an avg rate of 90 bpm. 5. Frequent (8.6%) isolated premature supraventricular complexes, rare supraventricular couplets and rare supraventricular triplets. 6. Occasional (4.6%) isolated premature ventricular complexes and rare ventricular couplets. Ventricular bigeminy and trigeminy were present. 7. No diary events were recorded. /tia KIRKPATRICK MD STAFF HAZARDOUS MATERIALS TANKER DRIVER Signed: 04/26/2024 12:59 Receipt Acknowledged By: 04/26/2024 13:01 /luis eduardo/ TASH DIA CNP, DIRECTOR OF CARDIOLOGY Electrophysiology Nurse Practitioner ANNI KIRKPATRICK [facility]
--- OUTSIDE RECORDS SUMMARY | 2024-09-05 16:34 | XMS_ITS | Encounter Summary ---
Author Name [facility] [place] Address [address] [place] [address] Care Team Providers Care Hat Checker Name Role Phone DESTINI JJ Primary Care [...] Hernández's Name Patient's Relationship to Policy Hernández [facility] (WNR) MEDICARE ADVANTAGE [facility] (WNR) Jun 08, 2019 [id number] [place]BH[place],BE RNA PATIENT Selected Encounter This section includes the information on record at [place] for the Encounter. Date/Time Encounter Type Encounter Description Reason Provider Source Apr 25, 2024 01:00 PM OFF/OP EST OCTOBER X REQ PHY/QHP AUDIOLOGY ICD-10-CM H90.3 Sensorineural hearing loss, bilateral IAN GALVIN IHE Encounter Template Text not used by [place] Assessments - Encounter Diagnoses This section includes the primary and secondary diagnoses documented for the Encounter. Date/Time Primary/Secondary Diagnosis Diagnosis Name Provider Source Apr 25, 2024 01:45 PM PRIMARY Sensorineural hearing loss, bilateral ELLEN SHEFFIELD [facility] Apr 25, 2024 01:45 PM SECONDARY Encounter for fitting and adjustment of hearing aid ELLEN SHEFFIELD [facility] Apr 25, 2024 01:45 PM SECONDARY Impacted cerumen, bilateral RUHR,ODALIS A [facility] Apr 25, 2024 01:45 PM SECONDARY Tinnitus, bilateral ELLEN SHEFFIELD [facility] Plan of Treatment: Future Appointments (+ 6 months) and Future Tests (+/- 45 days) The Plan of Treatment section includes future care activities for the patient [facility] [place] [facility] This section includes future appointments and future orders which are active, pending or scheduled. Future Appointments This section includes appointments that were scheduled to occur 6 months from the date of the Encounter, up to a maximum of 20 appointments. The data comes from all [facility]. Appointment Date/Time Appointment Type Appointme nt Facility Name May 23, 2024 02:00 PM AMBULATORY - MEDICINE [facility] Jun 02, 2024 12:30 PM AMBULATORY - SURGERY [facility] Jun 07, 2024 05:00 PM AMBULATORY - NONE [facility] Jul 01, 2024 12:45 PM AMBULATORY - NONE [facility] [employer] [employer] Jul 01, 2024 01:45 PM AMBULATORY - MEDICINE [facility] Jul 28, 2024 11:00 AM AMBULATORY - SURGERY [facility] Aug 03, 2024 01:00 PM AMBULATORY - NONE [facility] [employer] [employer] Aug 16, 2024 01:30 PM AMBULATORY - SURGERY [facility] Aug 16, 2024 02:30 PM AMBULATORY - NONE [facility] Aug 16, 2024 03:45 PM AMBULATORY - NONE [employer] [facility] [facility] Sep 02, 2024 09:30 AM AMBULATORY - SURGERY [facility] Sep 16, 2024 10:45 AM AMBULATORY - MEDICINE [facility] Social History: Smoking Status (Most current) and Tobacco Use (All prior to encounter date) This section includes the most current, and the historical, smoking and tobacco- related health factors from the [place] facility where the Encounter took place. Current Smoking Status This section includes the most current smoking, or tobacco-related health factor, from the [place] facility where the Encounter took place. Date/Time Current Smoking Status Comment Facil ity Jul 10, 2023 01:45 PM VA-TOBACCO FORMER USER [facility] Tobacco Use History This section includes a history of the smoking, or tobacco-related health factors, that were collected on or before the date of the Encounter. The data comes from the [place] facility where the Encounter took place. Date/Time Smoking Status/Tobacco Use Comment F acility Jul 10, 2023 01:45 PM VA-TOBACCO QUIT 15 YRS OR MORE [facility] Jun 13, 2022 01:15 PM VA-TOBACCO FORMER USER [facility] Jun 13, 2022 01:15 PM VA-TOBACCO QUIT 15 YRS OR MORE [facility] Apr 29, 2021 12:45 PM VA-TOBACCO FORMER USER [facility] Apr 29, 2021 12:45 PM VA-TOBACCO QUIT 15 YRS OR MORE [facility] May 23, 2019 01:02 PM VA-TOBACCO NEVER USED [facility] Apr 01, 2018 12:53 PM VA-TOBACCO FORMER USER [facility] Apr 01, 2018 12:53 PM VA-TOBACCO QUIT 15 YRS OR MORE [facility] Jun 16, 2017 08:20 AM FORMER TOBACCO USER 7Y OR GREATE R [facility] May 12, 2016 11:04 AM FORMER TOBACCO USER 7Y OR GREATE R [facility] May 24, 2015 01:56 PM FORMER TOBACCO USER 7Y OR GREATE R [facility] Aug 09, 2014 09:40 AM LIFETIME NON-TOBACCO USER [facility] October 25, 2013 09:46 AM FORMER TOBACCO USER 7Y OR GREATE R [facility] Mar 17, 2007 02:35 PM FORMER TOBACCO USER 7Y OR GREATE R [facility] Mar 04, 2006 11:27 AM FORMER TOBACCO USE >1Y [facility] Advance Directives: All historical and current Section Date Range: From patient's date of to the date document was created. This section includes ALL of a patient's completed or amended [place] Advance and Rescinded Directives. The entries below [...] ADVANCE DIRECTIVE VALERIE MILLAN [facility] Radiology Reports: +/- 30 days [...] the Encounter. The data comes from all [place] treatment facilities. Date/Time Radiology Report Provider Source Apr 25, 2024 02:45 PM HIP RIGHT 2 VIEWS W/PELVIS: SABRINA CULLEN [id number] -1945 M Exm Date: APR 25, 2024@14:45 Req Phys: JORDI BLANCA Loc: [facility] PA NARWHAL CONSULT ( Img Loc: MAIN X-RAY Service: [place] [address] (Case [id number] COMPLETE) HIP RIGHT 2 VIEWS W/PELVIS (RAD Detailed) CPT:74971 Reason for Study: right hip pain Clinical History: IS NOT under investigation for COVID-19 or is COVID-19 negative right hip pain Responsible provider name and phone number to notify for critical findings if other than user placing the order and pager listed below: User placing orders pager: [phone] ortho LAST CREATININE 1.2 (07/10/23) Report Status: Verified Date Reported: APR 25, 2024 Date Verified: APR 25, 2024 Briquette Operator E-Sig:/ES/BLAKE MIXON MD Report: HIP RIGHT 2 VIEWS W/PELVIS 04/25/2024 2:45 PM History: right hip pain Comparison: CT 08/24/2022, x-ray 03/08/2021 Impression: Advanced degenerative osteoarthritis in the right hip with progression from comparison studies, including severe loss of joint space with bfqq-sl-jlag articulation, subchondral cystic change in the femoral head and acetabulum and osteophytic spurring. Left total hip arthroplasty, unchanged on the AP view of the pelvis. Degenerative changes in the sacroiliac joints. Vascular calcifications. Primary Interpreting Staff: BLAKE MIXON MD, STAFF RADIOLOGIST (Briquette Operator) /NRM BLAKE MIXON [facility] Apr 25, 2024 11:28 AM KNEE LEFT 4 VIEWS: SABRINA CULLEN [id number] -1945 M Exm Date: APR 25, 2024@11:28 Req Phys: SAMANTHA LUGO Pat Loc: [facility] ORTHO 2WK NURSE PROCEDURE Img Loc: MAIN X-RAY Service: [place] [address] (Case [id number] COMPLETE) KNEE LEFT 4 VIEWS (RAD Detailed) CPT:18030 Reason for Study: Bilat knee DJD Clinical History: IS NOT under investigation for COVID-19 or is COVID-19 negative Bilat knee DJD Responsible provider name and phone number to notify for critical findings if other than user placing the order and pager listed below: User placing orders pager: [phone] Ortho [phone] LAST CREATININE 1.2 (07/10/23) Report Status: Verified Date Reported: APR 25, 2024 Date Verified: APR 25, 2024 Briquette Operator E-Sig:/ES/TIANNA JARQUIN DO Report: EXAMINATION: KNEE LEFT [...] lateral aspect of the patellofemoral compartment with geaa-vq-zgjk articulation and associated subchondral sclerosis. There is also a degree of lateral translation of the patella. Patellar enthesophyte formation again noted. No sizable suprapatellar joint effusion. There is amorphous calcific density in the suprapatellar recess, similar to prior. There is a degree of infrapatellar/patellar tendon soft tissue thickening, similar to prior. Primary Interpreting Staff: TIANNA JARQUIN DO, RADIOLOGIST (Briquette Operator) /DDS TIANNA JARQUIN [facility] Apr 25, 2024 11:28 AM KNEE RIGHT 4 VIEWS : SABRINA CULLEN [id number] -1945 M Exm Date: APR 25, 2024@11:28 Req Phys: SAMANTHA LUGO Pat Loc: [facility] ORTHO 2WK NURSE PROCEDURE Img Loc: MAIN X-RAY Service: [place] [address] (Case [id number] COMPLETE) KNEE RIGHT 4 VIEWS (RAD Detailed) CPT:68121 Reason for Study: Bilat knee DJD Clinical History: [place] IS NOT under investigation for COVID-19 or is COVID-19 negative Bilat knee DJD Responsible provider name and phone number to notify for critical findings if other than user placing the order and pager listed below: User placing orders pager: [phone] Ortho 5226 LAST CREATININE 1.2 (07/10/23) Report Status: Verified Date Reported: APR 25, 2024 Date Verified: APR 25, 2024 Briquette Operator E-Sig:/ES/TIANNA JARQUIN DO Report: EXAMINATION: KNEE LEFT [...] lateral aspect of the patellofemoral compartment with znvu-bn-kjsp articulation and associated subchondral sclerosis. There is also a degree of lateral translation of the patella. Patellar enthesophyte formation again noted. No sizable suprapatellar joint effusion. There is amorphous calcific density in the suprapatellar recess, similar to prior. There is a degree of infrapatellar/patellar tendon soft tissue thickening, similar to prior. Primary Interpreting Staff: TIANNA JARQUIN DO, RADIOLOGIST (Briquette Operator) /YOUSIFS TIANNA JARQUIN [facility] Encounter Notes: All associated encounter notes This section contains the clinical notes associated to the Encounter. Date/Time Encounter Note(s) Provider Source Apr 25, 2024 01:30 PM AUDIOLOGY NOTE: LOCAL TITLE: AUDIOLOGY CLINIC NOTE STANDARD TITLE: AUDIOLOGY NOTE DATE OF NOTE: APR 25, 2024@13:30 ENTRY DATE: APR 25, 2024@13:32:29 AUTHOR: CHUCKY SHEFFIELD COSIGNER: DORITA GALVIN URGENCY: STATUS: COMPLETED AUDIOLOGY CLINIC NOTE Has ADDENDA DIAGNOSIS Encounter for fitting and Adjustment of Hearing Aids Sensorineural Hearing Loss, Bilateral TINNITUS-BILIATERAL Reason for Visit: Hearing Aid Service Location of Visit(Room Number):2s-109 [place] was seen for Hearing Aid Service/Repair: 30 minute Appointment Otoscopy: Excessive Cerumen, bilaterally DIAGNOSIS History: Patient seen for a hearing aid service/hearing aid check Make:PHONAK Model: AUDEO L90-RL KATHYA Serial Number:[id number] Dome/Mold: CUSTOM EARMOLDS The following Hearing aid problem(s) were presented Right Hearing Aid:CLEAN AND CHECK, PAIR TO PHONE Left Hearing Aid:SAME ABOVE LOST VERO ON AND VINEET IN A FIRE-REPLACE BOTH DEVICES Action: Hearing Aids were cleaned and checked. A listening check revealed good sound quality: REPLACED WAX GUARDS AND CLEANED EARMOLDS PAIRED AIDS TO PHONE TURNED PATIENT OVER TO NURSE ODALIS FOR CERUMEN MANAGEMENT ORDERED BOTH VERO MANLEY IN AND VERO ON V2-MAIL OUT was counseled using a curriculum on the cleaning,care and use of hearing aids. Plan: Vet will contact call center as needed for follow up Patient is in agreement with this plan. Client Delivery Manager:MAIL NEW DEVICES TO WHEN RECEIVED /luis eduardo/ CHUCKY SHEFFIELD AUDIO TECH Signed: 04/25/2024 13:45 /luis eduardo/ Hunter DRISCOLL CCC-[place] FRUIT OR NUT GROWER Cosigned: 04/25/2024 15:08 05/11/2024 ADDENDUM STATUS: COMPLETED VERO IN & VERO ON certified and mailed to address on file /luis eduardo/ SONALI LANGE PSA Signed: 05/11/2024 15:21 CHUCKY SHEFFIELD [facility] Apr 25, 2024 01:00 PM AUDIOLOGY NOTE: LOCAL TITLE: AUDIOLOGY CLINIC NURSING NOTE STANDARD TITLE: AUDIOLOGY NOTE DATE OF NOTE: APR 25, 2024@13:00 ENTRY DATE: APR 25, 2024@15:08:09 AUTHOR: ODALIS AMRENTA EXP COSIGNER: URGENCY: STATUS: COMPLETED Reason for visit: Hearing aid repair/service. Cerumen removal. Effusion (drainage) in ear canals: No Recent Otalgia (pain) in ear canals: No Pruritus (itching) in ear canals: No History of ear surgery: No Cerumen Removed: Yes AD soft partial impaction removed soft partial impaction removed Patient tolerated procedure. Comments: Hearing aids placed in ears after ear cleaning. Patient reports good quality of sound. Nurse Patient Education: Barriers to Learning/Special Needs:Hearing Limitations Participant(s) can repeat instructions to Continue with current ear hygiene Refrain from using cotton swabs in ears Use Mineral oil therapy, Patient continues to use monthly as needed PLAN: Follow up in: PRN (as needed) /luis eduardo/ ODALIS ARMENTA LPN LICENSED PRACTICAL NURSE Signed: 04/25/2024 15:09 ODALIS ARMENTA [facility]
--- OUTSIDE RECORDS SUMMARY | 2024-09-05 16:34 | XMS_ITS | Encounter Summary ---
Author Name [facility] [place] Organization [facility] [facility] [place] Address [address] [place] [address] Care Team Providers Care Deputy Building Guard Name Role Phone JJDESTINI MONTAÑO Primary Care [...] Relationship to Policy Hernández [facility] (WNR) MEDICARE ADVANTAGE [facility] (WNR) Jun 08, 2019 [id number] SUBHASH,BE RNA PATIENT Selected Encounter This section includes the information on record at ME for the Encounter. Date/Time Encounter Type Encounter Description Reason Pro vider Source Aug 31, 2024 04:10 PM Outpatient Encounter EVENT (HISTORICAL) IHE Encounter Template Text not used by ME Plan of Treatment: Future Appointments (+ 6 [...] from all [facility]. Appointment Date/Time Appointment Type Appointme nt Facility Name Sep 02, 2024 09:30 AM AMBULATORY - SURGERY BOOKER DE LA CRUZ [facility] Sep 16, 2024 10:45 AM AMBULATORY - MEDICINE RASHI SKINNER [facility] Active, Pending, and Scheduled Orders [...] from all [facility] [address]. Test Date/Time Test Type Test Details Facility Name Aug 16, 2024 12:00 AM Laboratory - Blood Bank Order TYPE & SCREEN - LAB BLOOD SP [facility] 2024 02:16 PM Consult Order SOCIAL WOR K (MEDICINE/PRIMARY CARE) OUTPT Cons Varnish Melter Helper's Choice [facility] Lab Results: +/- 30 days of the encounter This section includes the Chemistry and Hematology Lab Results on record with ME for the patient. Radiology Reports and Pathology Reports are provided separately, in subsequent sections. Lab Results This section contains the Chemistry/Hematology Results that were resulted 30 days before or 30 daysafter the date of the Encounter. Date/Time Source Result Type Result - Unit Interpretation Reference Range Comment Aug 16, 2024 02:53 PM [facility] PROTHROMBIN TIME/INR Specimen Type: PLASMA No comment entered. Ordering Provider: Shay LOZA Report Released Date/Time: Aug 16, 2024 02:08 PM Reporting Lab: [facility] [id number] Performing Lab: [facility] [id number] .INR 1.5 H 0.8-1.1 .PT 17.8 s H 9.4-12.5 Aug 16, 2024 02:53 PM [facility] ALBUMIN Specimen Type: PLASMA No comment entered. Ordering Provider: Shay LOZA Report Released Date/Time: Aug 16, 2024 02:08 PM Reporting Lab: [facility] [id number] Performing Lab: [facility] [id number] ALBUMIN 4.2 g/dL 3.5-5.0 Aug 16, 2024 02:53 PM [facility] HEMOGLOBIN A1C Specimen Type: BLOOD Comment: Values [...] Aug 16, 2024 02:08 PM Reporting Lab: [facility] [id number] Performing Lab: [facility] [id number] HEMOGLOBIN A1C 5.5 4.0-6.0 Aug 16, 2024 02:53 PM [facility] BASIC METABOLIC PANEL+MG Specimen Type: PLASMA No comment entered. Ordering Provider: Shay LOZA Report Released Date/Time: Aug 16, 2024 02:08 PM Reporting Lab: [facility] [id number] Performing Lab: [facility] [phone] CREATININE 1.4 mg/dL H 0.7-1.2 UREA NITROGEN 41 mg/dL H 8-26 GLUCOSE 101 mg/dL H 70-100 SODIUM 143 mmol/L 136-145 POTASSIUM 4.6 mmol/L 3.5-5.1 CHLORIDE 112 mmol/L H 98-107 CO2 24 mmol/L 22-29 CALCIUM 9.6 mg/dL 8.4-10.2 MAGNESIUM 2.3 mg/dL 1.6-2.6 ANION GAP 7 mmol/L 5-15 .CREAT EGFR(CKD-EPI) 51 L >60 Aug 16, 2024 02:53 PM [facility] CBC & DIFF Specimen Type: BLOOD Comment: Automated Differential Performed Ordering Provider: Shay LOZA Report Released Date/Time: Aug 16, 2024 02:08 PM Reporting Lab: [facility] [id number] Performing Lab: [facility] [address] WBC 5.7 4.0-11.0 RBC 4.91 4.60-6.20 HGB [...] ,PRO) 0.2 ABS IMMATURE GRAN 0.0 0.0-0.1 Social History: Smoking Status (Most current) and Tobacco Use (All prior to encounter date) This section includes the most current, and the historical, smoking and tobacco- related health factors from the [place] facility where the Encounter took place. Current Smoking Status This section includes the most current smoking, or tobacco-related health factor, from the [place] facility where the Encounter took place. Date/Time Current Smoking Status Comment Deandre ity Jul 01, 2024 01:45 PM VA-TOBACCO USE FORMER CIGARETTES [facility] Tobacco Use History This section includes a history of the smoking, or tobacco-related health factors, that were collected on or before the date of the Encounter. The data comes from the [place] facility where the Encounter took place. Date/Time Smoking Status/Tobacco Use Comment F acility Jul 01, 2024 01:45 PM VA-TOBACCO USE FORMER CIGARETTES [facility] Jul 10, 2023 01:45 PM VA-TOBACCO FORMER USER [facility] Jul 10, 2023 01:45 PM VA-TOBACCO QUIT 15 YRS OR MORE [facility] Jun 13, 2022 01:15 PM VA-TOBACCO FORMER USER [facility] Jun 13, 2022 01:15 PM VA-TOBACCO QUIT 15 YRS OR MORE [facility] Apr 29, 2021 12:45 PM VA-TOBACCO FORMER USER [facility] Apr 29, 2021 12:45 PM VA-TOBACCO QUIT 15 YRS OR MORE [facility] May 23, 2019 01:02 PM VA-TOBACCO NEVER USED [facility] Apr 01, 2018 12:53 PM VA-TOBACCO FORMER USER [facility] Apr 01, 2018 12:53 PM VA-TOBACCO QUIT 15 YRS OR MORE [facility] Jun 16, 2017 08:20 AM FORMER TOBACCO USER 7Y OR GREATE R [facility] May 12, 2016 11:04 AM FORMER TOBACCO USER 7Y OR GREATE R [facility] May 24, 2015 01:56 PM FORMER TOBACCO USER 7Y OR GREATE R [facility] Aug 09, 2014 09:40 AM LIFETIME NON-TOBACCO USER [facility] October 25, 2013 09:46 AM FORMER TOBACCO USER 7Y OR GREATE R [facility] Mar 17, 2007 02:35 PM FORMER TOBACCO USER 7Y OR GREATE R [facility] Mar 04, 2006 11:27 AM FORMER TOBACCO USE >1Y [facility] Advance Directives: All historical and current Section Date Range: From patient's date of to the date document was created. This section includes ALL of a patient's completed or amended [place] Advance and Rescinded Directives. The entries below indicate that a directive exists for the patient, but an actual copy is not included with this document. The data comes from all [facility]. Date Advance Directives Provider Source Apr 29, 2016 CLINICAL WARNING SANGEETA ALVARES [facility] 2014 CLINICAL WARNING ISAAC DARBY [facility] Apr 01, 2005 ADVANCE DIRECTIVE VALERIE MILLAN [facility] Radiology Reports: +/- 30 days [...] the Encounter. The data comes from all [place] treatment facilities. Date/Time Radiology Report Provider Source Aug 16, 2024 02:24 PM HIP RIGHT 2 VIEWS W/PELVIS: SABRINA CULLEN [id number] -1945 M Exm Date: AUG 16, 2024@14:24 Req Phys: WILLIE-ROLAND,CONFIDENCE O Pat Loc: [facility]THO MD BRISCOE (Req'g Loc Img Loc: MAIN X-RAY Service: [place] [address] (Case [id number] COMPLETE) HIP RIGHT 2 VIEWS W/PELVIS (RAD Detailed) CPT:79367 Reason for Study: RIGHT hip DJD. Need MARKR BALL ON HE AP. PUT AT THE LEVEL OF GRE Clinical History: RIGHT hip DJD. Need MARKR BALL ON HE AP. PUT AT THE LEVEL OF GREATER TROCHANTER FOR TEMPLATING FOR SURGERY My pager number on record is: [phone]. I confirm that the pager number/cell phone number above is correct for reporting critical results. Trainees only: Enter your staff provider's info here: LAST CREATININE 1.2 (07/01/24) Report Status: Verified Date Reported: AUG 16, 2024 Date Verified: AUG 16, 2024 Oil Sales And Service Rep E-Sig:/ES/WILLOW MURPHY MD Report: EXAMINATION: HIP RIGHT [...] Primary Interpreting Staff: WILLOW MURPHY MD, RADIOLOGIST (Oil Sales And Service Rep) /RTS WILLOW MURPHY [facility]
--- OUTSIDE RECORDS SUMMARY | 2024-09-05 16:34 | XMS_ITS | Encounter Summary ---
Author Name [facility] [place] [facility] [place] Organization [facility] [place] Address [address] [place] [address] Care Team Providers Care Waste Cotton Cleaner Name Role Phone PARVIZ DESTINI Primary Care [...] Hernández's Name Patient's Relationship to Policy Hernández [facility] (WNR) MEDICARE ADVANTAGE [facility] (WNR) Jun 08, 2019 [id number] [facility] PATIENT Selected Encounter This section includes the information on record at [place] for the Encounter. Date/Time Encounter Type Encounter Description Reason Provider Source Aug 16, 2024 01:30 PM OFFICE O/P EST LOW 20 MIN ORTHO/JOINT SURG ICD-10-CM M25.551 Pain in right hip MARYAN BRISCOE MD IHE Encounter Template Text not used by [place] Assessments - Encounter Diagnoses This section includes the primary and secondary diagnoses documented for the Encounter. Date/Time Primary/Secondary Diagnosis Diagnosis Name Provider Source Aug 16, 2024 02:19 PM PRIMARY Pain in right hip Shay LOZA [facility] Plan of Treatment: Future Appointments (+ 6 months) and Future Tests (+/- 45 days) The Plan of Treatment section includes future care activities for the patient from all [place] treatmentfacilities. This section includes future appointments and future orders which are active, pending or scheduled. Future Appointments This section includes appointments that were scheduled to occur 6 months from the date of the Encounter, up to a maximum of 20 appointments. The data comes from all [place] treatment facilities. Appointment Date/Time Appointment Type Appointme nt Facility Name Sep 02, 2024 09:30 AM AMBULATORY - SURGERY [facility] Sep 16, 2024 10:45 AM [facility] Active, Pending, and Scheduled Orders This [...] comes from all [facility]. Test Date/Time Test Type Test Details Facility Name Jul 14, 2024 08:00 AM Laboratory - Chemi stry Order AST/SGOT PLASMA SP ONCE [facility] Jul 14, 2024 08:00 AM Laboratory - Chemi stry Order ALT/SGPT PLASMA SP ONCE [facility] Aug 16, 2024 12:00 AM Laboratory - Blood Bank Order TYPE & SCREEN - LAB BLOOD SP [facility] 2024 02:16 PM Consult Order SOCIAL WOR K (MEDICINE/PRIMARY CARE) OUTPT Cons Viscera Washer's Choice [facility] Lab Results: +/- 30 days of the encounter This section includes the Chemistry and Hematology Lab Results on record with [place] for the patient. Radiology Reports and Pathology Reports are provided separately, in subsequent sections. Lab Results This section contains the Chemistry/Hematology Results that were resulted 30 days before or 30 daysafter the date of the Encounter. Date/Time Source Result Type Result - Unit Interpretation Reference Range Comment Aug 16, 2024 02:53 PM [facility] PROTHROMBIN TIME/INR Specimen Type: PLASMA No comment entered. Ordering Provider: Shay LOZA Report Released Date/Time: Aug 16, 2024 02:08 PM Reporting Lab: [facility] [id number] Performing Lab: [facility] [address] .INR 1.5 H 0.8-1.1 .PT 17.8 s H 9.4-12.5 Aug 16, 2024 02:53 PM [facility] ALBUMIN Specimen Type: PLASMA No comment entered. Ordering Provider: Shay LOZA Report Released Date/Time: Aug 16, 2024 02:08 PM Reporting Lab: [facility] [id number] Performing Lab: [facility] [address] ALBUMIN 4.2 g/dL 3.5-5.0 Aug 16, 2024 02:53 PM [facility] HEMOGLOBIN A1C Specimen Type: BLOOD Comment: Values [...] Aug 16, 2024 02:08 PM Reporting Lab: [facility] [id number] Performing Lab: [facility] [address] HEMOGLOBIN A1C 5.5 4.0-6.0 Aug 16, 2024 02:53 PM [facility] BASIC METABOLIC PANEL+MG Specimen Type: PLASMA No comment entered. Ordering Provider: Shay LOZA Report Released Date/Time: Aug 16, 2024 02:08 PM Reporting Lab: [facility] [id number] Performing Lab: [facility] [address] CREATININE 1.4 mg/dL H 0.7-1.2 UREA NITROGEN 41 mg/dL H 8-26 GLUCOSE 101 mg/dL H 70-100 SODIUM 143 mmol/L 136-145 POTASSIUM 4.6 mmol/L 3.5-5.1 CHLORIDE 112 mmol/L H 98-107 CO2 24 mmol/L 22-29 CALCIUM 9.6 mg/dL 8.4-10.2 MAGNESIUM 2.3 mg/dL 1.6-2.6 ANION GAP 7 mmol/L 5-15 .CREAT EGFR(CKD-EPI) 51 L >60 Aug 16, 2024 02:53 PM [facility] CBC & DIFF Specimen Type: BLOOD Comment: Automated Differential Performed Ordering Provider: Shay LOZA Report Released Date/Time: Aug 16, 2024 02:08 PM Reporting Lab: [facility] [id number] Performing Lab: [facility] [address] WBC 5.7 4.0-11.0 RBC 4.91 4.60-6.20 HGB [...] and tobacco- related health factors from the [place] facility where the Encounter took place. Current Smoking Status This section includes the most current smoking, or tobacco-related health factor, from the [place] facility where the Encounter took place. Date/Time Current Smoking Status Comment Facil eliu Jul 01, 2024 01:45 PM VA-TOBACCO USE FORMER CIGARETTES [facility] Tobacco Use History This section includes a history of the smoking, or tobacco-related health factors, that were collected on or before the date of the Encounter. The data comes from the [place] facility where the Encounter took place. Date/Time Smoking Status/Tobacco Use Comment F acility Jul 01, 2024 01:45 PM VA-TOBACCO USE FORMER CIGARETTES [facility] Jul 10, 2023 01:45 PM VA-TOBACCO FORMER USER [facility] Jul 10, 2023 01:45 PM VA-TOBACCO QUIT 15 YRS OR MORE [facility] Jun 13, 2022 01:15 PM VA-TOBACCO FORMER USER [facility] Jun 13, 2022 01:15 PM VA-TOBACCO QUIT 15 YRS OR MORE [facility] Apr 29, 2021 12:45 PM VA-TOBACCO FORMER USER [facility] Apr 29, 2021 12:45 PM VA-TOBACCO QUIT 15 YRS OR MORE [facility] May 23, 2019 01:02 PM VA-TOBACCO NEVER USED [facility] Apr 01, 2018 12:53 PM VA-TOBACCO FORMER USER [facility] Apr 01, 2018 12:53 PM VA-TOBACCO QUIT 15 YRS OR MORE [facility] Jun 16, 2017 08:20 AM FORMER TOBACCO USER 7Y OR GREATE R [facility] May 12, 2016 11:04 AM FORMER TOBACCO USER 7Y OR GREATE R [facility] May 24, 2015 01:56 PM FORMER TOBACCO USER 7Y OR GREATE R [facility] Aug 09, 2014 09:40 AM LIFETIME NON-TOBACCO USER [facility] October 25, 2013 09:46 AM FORMER TOBACCO USER 7Y OR GREATE R [facility] Mar 17, 2007 02:35 PM FORMER TOBACCO USER 7Y OR GREATE R [facility] Mar 04, 2006 11:27 AM FORMER TOBACCO USE >1Y [facility] Advance Directives: All historical and current Section Date Range: From patient's date of to the date document was created. This section includes ALL of a patient's completed or amended [place] Advance and Rescinded Directives. The entries below indicate that a directive exists for the patient, but an actual copy is not included with this document. The data comes from all [facility]. Date Advance Directives Provider Source Apr 29, 2016 CLINICAL WARNING SANGEETA ALVARES [facility] 2014 CLINICAL WARNING ISAAC DARBY [facility] Apr 01, 2005 ADVANCE DIRECTIVE VALERIE [...] the Encounter. The data comes from all [place] treatment facilities. Date/Time Radiology Report Provider Source Aug 16, 2024 02:24 PM HIP RIGHT 2 VIEWS W/PELVIS: SABRINA CULLEN [id number] -1945 M Exm Date: AUG 16, 2024@14:24 Req Phys: ARELIS LOZA Pat Loc: [facility] (Req'g Loc Img Loc: MAIN X-RAY Service: [place] [address] (Case [id number] COMPLETE) HIP RIGHT 2 VIEWS W/PELVIS (RAD Detailed) CPT:03776 Reason for Study: RIGHT hip DJD. Need MARKR BALL ON HE AP. PUT AT THE LEVEL OF GRE Clinical History: RIGHT hip DJD. Need MARKR BALL ON HE AP. PUT AT THE LEVEL OF GREATER TROCHANTER FOR TEMPLATING FOR SURGERY My pager number on record is: [phone]. I confirm that the pager number/cell phone number above is correct for reporting critical results. Trainees only: Enter your staff provider's info here: LAST CREATININE 1.2 (07/01/24) Report Status: Verified Date Reported: AUG 16, 2024 Date Verified: AUG 16, 2024 Cheese Packer E-Sig:/ES/WILLOW MURPHY MD Report: EXAMINATION: HIP RIGHT [...] Primary Interpreting Staff: WILLOW MURPHY MD, RADIOLOGIST (Cheese Packer) /RTS WILLOW MURPHY [facility] Encounter Notes: All associated encounter notes This section contains the clinical notes associated to the Encounter. Date/Time Encounter Note(s) Provider Source Aug 17, 2024 08:51 AM ADDENDUM: LOCAL TITLE: Addendum STANDARD TITLE: ADDENDUM DATE OF NOTE: AUG 17, 2024@08:51:35 ENTRY DATE: AUG 17, 2024@08:51:36 AUTHOR: JOVI WHALEY EXP COSIGNER: URGENCY: STATUS: COMPLETED Supervisor [employer] reached out to to explain his CIC request was denied based on drive time. [place] is not beyond 60 minutes. voiced his frustration that community care didnt call him to discuss and stated [place] [facility] [place] and [place]. Supervisor [employer] reached out to yamila with [facility] and she will call to discuss. Supervisor Electron T[employer] Processing will remain available if is interested in starting the surgical process towards Right BERT surgery with Dr. Briscoe at the [facility]. Labs were WSL when he had them drawn yesterday. FYI to Dr. Briscoe and PCP to the above. /luis eduardo/ JOVI WHALEY RN REGISTERED STAFF NURSE Signed: 08/17/2024 08:53 Receipt Acknowledged By: 08/19/2024 14:28 /luis eduardo/ MARYAN BRISCOE MD STAFF SURGEON 08/19/2024 07:57 /luis eduardo/ Destini Jj MD Physician ====== --- Original Document --- 08/16/24 ORTHOPEDIC CLINIC NOTE: Orthopaedic Clinic Follow-up Note Subjective: 78 year old male with history of HTN, hiatal hernia, GERD, hemorrhoids, BPH, DONALD, HLD, gout who presents for RIGHT Hip DJD and would like to discussion surgical management. Notable history includes [place] [address] Fernandez, LEFT TKA in 01/2024 at [facility]. 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 Reports multiple steroid injections into the right hip with the last one being 3 months ago at [facility]. He reports initial pain relief with the injections but now states that they do not help. Reports RIGHT hippain and stiffness. Denies numbness, tingling, fevers, chills, nausea, vomiting, chest pain, or SOB. 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 Uses a can and walker to ambulate. Ex Smoker and denies EtOH use. Objective: Gen: well-appearing, alert and oriented, NAD Pulm: non-labored respirations on room air RLE: - Skin intact throughout, no rashes or erythema. - Pain with log roll but no pain with AROM of the hip. No groin TTP. Pain in the groin with internal rotation. Able to AROM to 90 hip flexion without pain. - SILT constantine, saph, tib, SP, and DP distribs - Fires quad, hamstrings, TA, GSC, EHL, FHL, wiggles lesser toes. - 2+ DP pulse. Imaging: Comparison of hip x rays to 2020 reveals worsening DJD. 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 Assessment: 78 year old male with history of HTN, hiatal hernia, GERD, hemorrhoids, BPH, DONALD, HLD, gout who presents for RIGHT Hip DJD and would like to discussion surgical management. Patient would like to undergo surgery in the community/closer to his home and is a requesting a community care consult. Plan to have surgery done in the community pending community care approval. Plan: - Preop labs ordered, Community care consult placed, Dental consult placed -Repeat X rays ordered today - WBAT, ROMAT RLE Discussed with Dr. Briscoe /luis eduardo/ ARELIS TAPIA-ROLAND ORTHOPAEDIC SURGERY RESIDENT Signed: 08/16/2024 14:19 JOVI WHALEY [facility] Aug 16, 2024 01:17 PM ORTHOPEDIC SURGERY ATTENDING NOTE: LOCAL TITLE: ORTHOPEDIC CLINIC NOTE STANDARD TITLE: ORTHOPEDIC SURGERY ATTENDING NOTE DATE OF NOTE: AUG 16, 2024@13:17 ENTRY DATE: AUG 16, 2024@13:17:58 AUTHOR: DENIA,CHRISTOPHER EXP COSIGNER: URGENCY: STATUS: COMPLETED ORTHOPEDIC CLINIC NOTE Has ADDENDA Orthopaedic Clinic Follow-up Note Subjective: 78 year old male with history of HTN, hiatal hernia, GERD, hemorrhoids, BPH, DONALD, HLD, gout who presents for RIGHT Hip DJD and would like to discussion surgical management. Notable history includes [place] [address] Fernandez, LEFT TKA in 01/2024 at [facility]. 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 Reports multiple steroid injections into the right hip with the last one being 3 months ago at [facility]. He reports initial pain relief with the injections but now states that they do not help. Reports RIGHT hippain and stiffness. Denies numbness, tingling, fevers, chills, nausea, vomiting, chest pain, or SOB. 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 Uses a can and walker to ambulate. Ex Smoker and denies EtOH use. Objective: Gen: well-appearing, alert and oriented, NAD Pulm: non-labored respirations on room air RLE: - Skin intact throughout, no rashes or erythema. - Pain with log roll but no pain with AROM of the hip. No groin TTP. Pain in the groin with internal rotation. Able to AROM to 90 hip flexion without pain. - SILT constantine, saph, tib, SP, and DP distribs - Fires quad, hamstrings, TA, GSC, EHL, FHL, wiggles lesser toes. - 2+ DP pulse. Imaging: Comparison of hip x rays to 2020 reveals worsening DJD. 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 Assessment: 78 year old male with history of HTN, hiatal hernia, GERD, hemorrhoids, BPH, DONALD, HLD, gout who presents for RIGHT Hip DJD and would like to discussion surgical management. Patient would like to undergo surgery in the community/closer to his home and is a requesting a community care consult. Plan to have surgery done in the community pending community care approval. Plan: - Preop labs ordered, Community care consult placed, Dental consult placed -Repeat X rays ordered today - WBAT, ROMAT RLE Discussed with Dr. Briscoe /luis eduardo/ ARELIS LOZA ORTHOPAEDIC SURGERY RESIDENT Signed: 08/16/2024 14:19 08/17/2024 ADDENDUM STATUS: COMPLETED Supervisor [employer] reached out to to explain his CIC request was denied based on drive time. is not beyond 60 minutes. [place] voiced his frustration that community care didnt call him to discuss and stated he [place] [facility] [place] and needs [place]. Supervisor [employer] reached out to yamila with [employer] and she will call to discuss. Supervisor [employer] Processing will remain available if is interested in starting the surgical process towards Right BERT surgery with Dr. Briscoe at the [facility]. Labs were WSL when he had them drawn yesterday. FYI to Dr. Briscoe and PCP to the above. /luis eduardo/ JOVI WHALEY RN REGISTERED STAFF NURSE Signed: 08/17/2024 08:53 Receipt Acknowledged By: * AWAITING SIGNATURE * MARYAN BRISCOE MD * AWAITING SIGNATURE * DESTINI JJ CONFIDE NCE O [facility]
--- OUTSIDE RECORDS SUMMARY | 2024-09-05 16:34 | XMS_ITS | Encounter Summary ---
Author Name [facility] [place] [facility] [place] Address [address] [place] [address] Care Team Providers Care Confectionery Maker Name Role Phone PARVIZ DESTINI Primary Care [...] Hernández's Name Patient's Relationship to Policy Hernández [facility] (WNR) MEDICARE ADVANTAGE [facility] (WNR) Jun 08, 2019 [id number] [facility] PATIENT Selected Encounter This section includes the information on record at [place] for the Encounter. Date/Time Encounter Type Encounter Description Reason Provider Source Jul 28, 2024 11:00 AM OFF/OP CNSLTJ NEW/EST MOD 40 ORTHO/JOINT SURG ICD-10-CM M16.11 Unilateral primary osteoarthritis, right hip EBTH WANG Dana Encounter Template Text not used by [place] Assessments - Encounter Diagnoses This section includes the primary and secondary diagnoses documented for the Encounter. Date/Time Primary/Secondary Diagnosis Diagnosis Name Provider Source Jul 28, 2024 03:24 PM PRIMARY Unilateral primary osteoarthritis, right hip BETH WANG [facility] Plan of Treatment: Future Appointments (+ 6 months) and Future Tests (+/- 45 days) The Plan of Treatment section includes future care activities for the patient from all [place] treatmentfacilities. This section includes future appointments and future orders which are active, pending or scheduled. Future Appointments This section includes appointments that were scheduled to occur 6 months from the date of the Encounter, up to a maximum of 20 appointments. The data comes from all [facility]. Appointment Date/Time Appointment Type Appointme nt Facility Name Aug 03, 2024 01:00 PM AMBULATORY - NONE [facility] Aug 16, 2024 01:30 PM AMBULATORY - SURGERY [facility] Aug 16, 2024 02:30 PM AMBULATORY - NONE [facility] Aug 16, 2024 03:45 PM AMBULATORY - NONE [facility] Sep 02, 2024 09:30 AM AMBULATORY - SURGERY [facility] Sep 16, 2024 10:45 AM AMBULATORY - MEDICINE [facility] Active, Pending, and Scheduled Orders This section includes a listing of several types of active, pending, and scheduled orders, including clinic medications orders, diagnostic test orders, procedure orders and consult orders; where the start date of the order is 45 days before the date of the Encounter or 45 days after the date of theEncounter. The data comes from all [facility]. Test Date/Time Test Type Test Details Facility Name Jul 14, 2024 08:00 AM Laboratory - Chemi stry Order ALT/SGPT PLASMA SP ONCE [facility] Jul 14, 2024 08:00 AM Laboratory - Chemi stry Order AST/SGOT PLASMA SP ONCE [facility] Aug 16, 2024 12:00 AM Laboratory - Blood Bank Order TYPE & SCREEN - LAB BLOOD SP [facility] 2024 02:16 PM Consult Order SOCIAL WOR K (MEDICINE/PRIMARY CARE) OUTPT Cons Lockstitch [facility] Lab Results: +/- 30 days of the [...] Range Comment Aug 16, 2024 02:[address] [facility] PROTHROMBIN TIME/INR Specimen Type: PLASMA No comment entered. Ordering Provider: Shay LOZA Report Released Date/Time: Aug 16, 2024 02:08 PM Reporting Lab: [facility] [id number] Performing Lab: [facility] [id number] .INR 1.5 H 0.8-1.1 .PT 17.8 s H 9.4-12.5 Aug 16, 2024 02:[address] [facility] ALBUMIN Specimen Type: PLASMA No comment entered. Ordering Provider: Shay LOZA Report Released Date/Time: Aug 16, 2024 02:08 PM Reporting Lab: [facility] [phone] Performing Lab: [facility] [phone] ALBUMIN 4.2 g/dL 3.5-5.0 Aug 16, 2024 02:[address] [facility] HEMOGLOBIN A1C Specimen Type: BLOOD Comment: Values [...] Aug 16, 2024 02:08 PM Reporting Lab: [facility] [id number] Performing Lab: [facility] [phone] HEMOGLOBIN A1C 5.5 4.0-6.0 Aug 16, 2024 02:[address] [facility] BASIC METABOLIC PANEL+MG Specimen Type: PLASMA No comment entered. Ordering Provider: Shay LOZA Report Released Date/Time: Aug 16, 2024 02:08 PM Reporting Lab: [facility] [phone] Performing Lab: [facility] [phone] CREATININE 1.4 mg/dL H 0.7-1.2 UREA NITROGEN 41 mg/dL H 8-26 GLUCOSE 101 mg/dL H 70-100 SODIUM 143 mmol/L 136-145 POTASSIUM 4.6 mmol/L 3.5-5.1 CHLORIDE 112 mmol/L H 98-107 CO2 24 mmol/L 22-29 CALCIUM 9.6 mg/dL 8.4-10.2 MAGNESIUM 2.3 mg/dL 1.6-2.6 ANION GAP 7 mmol/L 5-15 .CREAT EGFR(CKD-EPI) 51 L >60 Aug 16, 2024 02:[address] [facility] CBC & DIFF Specimen Type: BLOOD Comment: Automated Differential Performed Ordering Provider: Shay LOZA Report Released Date/Time: Aug 16, 2024 02:08 PM Reporting Lab: [facility] [id number] Performing Lab: [facility] [phone] WBC 5.7 4.0-11.0 RBC 4.91 4.60-6.20 HGB [...] ,PRO) 0.2 ABS IMMATURE GRAN 0.0 0.0-0.1 Jul 01, 2024 11:[address] [facility] ANTI-HEP C(EIA) Specimen Type: SERUM No comment entered. Ordering Provider: DESTINI JJ Report Released Date/Time: Jul 10, 2023 02:21 PM Reporting Lab: [facility] [phone] Performing Lab: [facility] [phone] ANTI-HEP C(EIA) NEGATIVE NEGATIVE Jul 01, 2024 11:[address] [facility] BASIC METABOLIC PANEL+MG Specimen Type: PLASMA No comment entered. Ordering Provider: DESTINI JJ Report Released Date/Time: Jul 10, 2023 02:20 PM Reporting Lab: [facility] [phone] Performing Lab: [facility] [phone] CREATININE 1.2 mg/dL 0.7-1.2 UREA NITROGEN 27 mg/dL H 8-26 GLUCOSE 104 mg/dL H 70-100 SODIUM 139 mmol/L 136-145 POTASSIUM 3.7 mmol/L 3.5-5.1 CHLORIDE 108 mmol/L H 98-107 CO2 23 mmol/L 22-29 CALCIUM 10.1 mg/dL 8.4-10.2 MAGNESIUM 2.0 mg/dL 1.6-2.6 ANION GAP 8 mmol/L 5-15 .CREAT EGFR(CKD-EPI) 61 >60 Jul 01, 2024 11:[address] [facility] CBC Specimen Type: BLOOD No comment entered. Ordering Provider: DESTINI JJ Report Released Date/Time: Jul 10, 2023 02:20 PM Reporting Lab: [facility] [phone] Performing Lab: [facility] [address] WBC 6.8 4.0-11.0 RBC 5.01 4.60-6.20 HGB 14.4 g/dL 13.5-17.9 HCT 46.7 41.0-54.0 MCV 93.2 fL 80.0-100.0 MCH 28.7 pg 27.0-33.0 MCHC 30.8 g/dL L 32.0-37.5 PLT 247 150-400 MPV 9.3 fL 9.1-13.0 RDW 13.4 11.5-14.5 Jul 01, 2024 11:[address] [facility] HEMOGLOBIN A1C Specimen Type: BLOOD Comment: Values [...] Jul 01, 2024 02:17 PM Reporting Lab: [facility] [phone] Performing Lab: [facility] [phone] HEMOGLOBIN A1C 5.4 4.0-6.0 Jul 01, 2024 11:[address] [facility] B 12 Specimen Type: SERUM No comment entered. Ordering Provider: DESTINI JJ Report Released Date/Time: Jul 01, 2024 02:20 PM Reporting Lab: [facility] [phone] Performing Lab: [facility] [phone] B 12 374 pg/mL 213-816 Social History: Smoking Status (Most current) and Tobacco Use (All prior to encounter date) This section includes the most current, and the historical, smoking and tobacco- related health factors from the [facility] where the Encounter took place. Current Smoking Status This section includes the most current smoking, or tobacco-related health factor, from the [place] facility where the Encounter took place. Date/Time Current Smoking Status Comment Deandre nowak Jul 01, 2024 01:45 PM [facility]-TOBACCO USE FORMER CIGARETTES [facility] Tobacco Use History This section includes a history of the smoking, or tobacco-related health factors, that were collected on or before the date of the Encounter. The data comes from the [place] facility where the Encounter took place. Date/Time Smoking Status/Tobacco Use Comment F acility Jul 01, 2024 01:45 PM VA-TOBACCO USE FORMER CIGARETTES [facility] Jul 10, 2023 01:45 PM VA-TOBACCO FORMER USER [facility] Jul 10, 2023 01:45 PM VA-TOBACCO QUIT [address] [facility] Jun 13, 2022 01:15 PM VA-TOBACCO FORMER USER [facility] Jun 13, 2022 01:15 PM VA-TOBACCO QUIT [address] [facility] Apr 29, 2021 12:45 PM VA-TOBACCO FORMER USER [facility] Apr 29, 2021 12:45 PM VA-TOBACCO QUIT [address] [facility] May 23, 2019 01:02 PM VA-TOBACCO NEVER USED [facility] Apr 01, 2018 12:53 PM VA-TOBACCO FORMER USER [facility] Apr 01, 2018 12:53 PM VA-TOBACCO QUIT [address] [facility] Jun 16, 2017 08:20 AM FORMER TOBACCO USER 7Y OR GREATE R [facility] May 12, 2016 11:04 AM FORMER TOBACCO USER 7Y OR GREATE R [facility] May 24, 2015 01:56 PM FORMER TOBACCO USER 7Y OR GREATE R [facility] Aug 09, 2014 09:40 AM LIFETIME NON-TOBACCO USER [facility] October 25, 2013 09:46 AM FORMER TOBACCO USER 7Y OR GREATE R [facility] Mar 17, 2007 02:35 PM FORMER TOBACCO USER 7Y OR GREATE R [facility] Mar 04, 2006 11:27 AM FORMER TOBACCO USE >1Y [facility] Advance Directives: All [...] HIP RIGHT 2 VIEWS W/PELVIS: SABRINA CULLEN [id number] -1945 M Exm Date: AUG 16, 2024@14:24 Req Phys: WILLIE-ROLAND,CONFIDENCE O Pat Loc: [facility]THO MD [facility] (Req'g Loc Img Loc: MAIN X-RAY Service: [place] [address] (Case [id number] COMPLETE) HIP RIGHT 2 VIEWS W/PELVIS (RAD Detailed) CPT:87692 Reason for Study: RIGHT hip DJD. Need MARKR BALL ON HE AP. PUT AT THE LEVEL OF GRE Clinical History: RIGHT hip DJD. Need MARKR BALL ON HE AP. PUT AT THE LEVEL OF GREATER TROCHANTER FOR TEMPLATING FOR SURGERY My pager number on record is: [phone]. I confirm that the pager number/cell phone number above is correct for reporting critical results. Trainees only: Enter your staff provider's info here: LAST CREATININE 1.2 (07/01/24) Report Status: Verified Date Reported: AUG 16, 2024 Date Verified: AUG 16, 2024 Supervisor Photostat E-Sig:/ES/WILLOW MURPHY MD Report: EXAMINATION: HIP RIGHT [...] Primary Interpreting Staff: WILLOW MURPHY MD, RADIOLOGIST (Supervisor Photostat) /RTS WILLOW MURPHY [facility] Encounter Notes: All associated encounter notes This section contains the clinical notes associated to the Encounter. Date/Time Encounter Note(s) Provider Source Jul 28, 2024 11:07 AM ORTHOPEDIC SURGERY CONSULT: LOCAL TITLE: ORTHOPEDIC CONSULT STANDARD TITLE: ORTHOPEDIC SURGERY CONSULT DATE OF NOTE: JUL 28, 2024@11:07 ENTRY DATE: JUL 28, 2024@11:07:58 AUTHOR: BETH WANG EXP COSIGNER: URGENCY: STATUS: COMPLETED Chief Complaint(s): Right hip pain - I'd like to talk about surgery HPI: Sabrina (Lupe) is a very pleasant 78-year-old male who presents to the clinic with right hip pain that started around 4 years ago with no known injury. The pain has grown in severity over the last couple years and is now a sharp pain in the groin with any weightbearing. There are good days and bad days depending on his activity level. He has had to stop his hobbies like hunting and golf due to not being able to walk distances. He has been using a quad cane to ambulate shorter distance, and a wheelchair for longer distance (such as from parking ramp to ortho clinic). For pain management he has received 4 cortisone injections, approx once every 6 months. The first 3 helped immensely, the last one (05/31/24) relieved his pain for 2 days. Lupe is not taking any analgesics. Of note, he is S/P a left knee replacement in [place] in January 2024 and a left hip replacement at [facility] from 2005. Both he is very happy with. He also has a history of a RLE DVT from 6+ years ago and is taking Apixaban. Lupe is hoping to be considered for a right BERT. Past medical history/Active Problems: Active Problems: Active [...] - right eye, jun 2022, sees local flare breaker 18. History of carotid endarterectomy - Rt CEA and bovine patch repair, 08/2022 19. Long-term current use of anticoagulant 20. History of left total knee replacement - 2023, done at [place] Allergies: Patient has answered NKA Active Outpatient Medications (including Supplies): Active Outpatient Medications Status = 1) APIXABAN 5MG TAB TAKE ONE TABLET BY MOUTH EVERY 12 HOURS ACTIVE Indication: TO TREAT AND/OR PREVENT BLOOD CLOTS 2) ASPIRIN 81MG EC TAB TAKE ONE TABLET BY MOUTH EVERY DAY DO ACTIVE NOT CHEW Indication: TO PREVENT BLOOD CLOTS 3) ATORVASTATIN CALCIUM 40MG TAB TAKE ONE TABLET BY MOUTH AT ACTIVE BEDTIME Indication: FOR CHOLESTEROL 4) CAPSAICIN 0.025% CREAM APPLY TO AFFECTED AREA TOPICALLY ACTIVE THREE TIMES A DAY *WASH HANDS AFTER APPLICATION* Indication: FOR PAIN 5) FINASTERIDE 5MG TAB TAKE ONE TABLET BY MOUTH EVERY DAY ACTIVE (S) Indication: FOR PROSTATE 6) HYDROCHLOROTHIAZIDE 12.5MG TAB TAKE ONE TABLET BY MOUTH ACTIVE (S) EVERY DAY Indication: FOR BLOOD PRESSURE 7) LISINOPRIL 40MG TAB TAKE ONE TABLET BY MOUTH EVERY DAY FOR ACTIVE HEART AND BLOOD PRESSURE 8) LORATADINE 10MG TAB TAKE ONE TABLET BY MOUTH EVERY DAY ACTIVE NEEDED Indication: FOR ALLERGIES 9) METOPROLOL SUCCINATE 25MG SA TAB TAKE ONE TABLET BY MOUTH ACTIVE EVERY DAY 10) TAMSULOSIN HCL 0.4MG CAP TAKE ONE CAPSULE BY MOUTH EVERY ACTIVE (S) EVENING Indication: FOR PROSTATE Social Habits (describe): Employment status/Education - Retired Living situation - Alone but has a family member close by. He is living in a one level [facility] Alcohol use - None Recreational drug use - None Current tobacco use - None Diet - Regular Activity level - Community ambulation. 4-point cane PHYSICAL EXAM: General Appearance: Well Developed, Well Nourished, in NAD, A&Ox3, BMI 33 Vital Signs:BP: 115/73 (07/01/2024 12:10) P: 64 (07/01/2024 12:10) R: 16 (07/01/2024 12:10) T: 97.5 F [36.4 C] (07/01/2024 12:10) WGT: 245 lb [111.13 kg] (07/01/2024 12:10) Musculoskeletal: Hip exam: Skin over the right hip is intact, without swelling, erythema, or warmth. NTTP over the greater trochanter, +TTP over groin area with ROM. ROM F: 90, ER: 30, IR: 5. Significant pain with IR. 5/5 strength hip flexion, knee flexion and extension, GCS, TA, quads, EHL, FHL. - [place] (+) - SLR for radicular symptoms (-) - Log rolling test (-) - FADIR (++) - FE (+) Sensation: Intact to light touch in obturator, femoral, saph, sural, sup peroneal, deep peroneal, and tibial nerve distributions. Notes decreased sensation sural nerve and sup peroneal (over all 5 toes, this is unchanged). Neurovascularly intact distally, +2 posterior tibial pulse, +2 pedal pulse. Antalgic gait with use of 4-point cane. Labs: SMA-7: SODIUM 139 (07/01/24) POTASSIUM 3.7 (07/01/24) CHLORIDE 108 H (07/01/24) CO2 23 (07/01/24) UREA NITROGEN 27 H (07/01/24) CREATININE 1.2 (07/01/24) GLUCOSE 104 H (07/01/24) CBC: WBC 6.8 (07/01/24) HGB 14.4 (07/01/24) HCT 46.7 (07/01/24) PLT 247 (07/01/24) HGB A1C: LAB TESTS SELECTED Collection DT Specimen Test Name Result Units Ref Range 07/01/2024 11:49 BLOOD !! HEMOGLOBIN A1C 5.4 % 4.0 - 6.0 Imaging: Report: HIP RIGHT 2 VIEWS W/PELVIS 04/25/2024 2:45 PM Impression: Advanced degenerative osteoarthritis in the right hip with progression from comparison studies, including severe loss of joint space with [id number] articulation, subchondral cystic change in the femoral head and acetabulum and osteophytic spurring. Left total hip arthroplasty, unchanged on the AP view of the pelvis. Degenerative changes in the sacroiliac joints. Vascular calcifications. Primary Interpreting Staff: BLAKE MIXON MD, STAFF RADIOLOGIST (Supervisor Photostat) /NRM Diagnosis: 1. Advanced degenerative arthritis, right hip Assessment/Plan: Reviewed the imaging with Lupe. His osteoarthritis has progressed significantly since his 2020 XRs with now advanced joint space loss and bone-on- bone articulation. He has tried APAP, activity modifications, cortisone injections, and physical therapy in the past. At this point conservative treatment has failed and he feels ready to pursue a right BERT. We had lengthy discussion regarding the surgical pathway. I will place a RTC order for him to discuss the possibility of a hip replacement with a surgeon. His KRISHNAMURTHY is 30. 1. RTC to meet with surgical team to discuss possibility of right BERT /es/ Beth Wang APRN APRN, Ortho Signed: 07/28/2024 15:[address] [facility] Jul 28, 2024 10:49 AM ORTHOPEDIC SURGERY ATTENDING NOTE: LOCAL TITLE: ORTHOPEDIC CLINIC NOTE STANDARD TITLE: ORTHOPEDIC SURGERY ATTENDING NOTE DATE OF NOTE: JUL 28, 2024@10:49 ENTRY DATE: JUL 28, 2024@10:49:44 AUTHOR: BETH WANG EXP COSIGNER: URGENCY: STATUS: COMPLETED FRAILTY CALCULATION: Risk Analysis Index (KRISHNAMURTHY) score is: Score: 30 CALCULATED SCORE Variable Score Sex: 3 Cancer Status: No Weight Loss: 0 Poor Appetite: 0 Renal Insufficiency: 0 Chronic/Congestive Heart Failure: 0 Shortness of Breath: 0 Dependent Livin Cognitive Decline: No ADL*Cognitive Decline: 1 Mobility: Needs help from a cane, walker or scooter Eating: Can plan and prepare his/her own meals Toileting: Can use the toilet without help Personal Hygiene: Can shower or bathe without prompting or help KRISHNAMURTHY Score: 30 /luis eduardo/ Beth Wang APRN APRN, Ortho Signed: 07/28/2024 15:[address] [facility]
[2024-09-05 16:53] LABS: Albumin* 4.8 g/dL (3.3-5.0); Chloride* 103 mmol/L (96-114); Sodium* 142 mmol/L (135-149)
[2024-09-05 16:55] LABS: Blood Urea Nitrogen* 25 mg/dL (7-30); Creatinine* 1.2 mg/dL (0.5-1.5); Est. Creatinine Clearance* 52.99; Estimated Glomerular Filt Rate 61 ml/min
[2024-09-05 16:56] LABS: Alanine Aminotransferase* 34 U/L (4-50); Alkaline Phosphatase* 123 U/L (40-150); Anion Gap 12 mEq/L (7-15); Aspartate Amino Transferase* 41 U/L (12-35); Bilirubin Total* 0.9 mg/dL (0.1-1.5); Calcium* 10.1 mg/dL (8.4-10.6); Carbon Dioxide* 27 mmol/L (20-32); Glucose* 156 mg/dL (60-115)
[2024-09-05 16:58] LABS: C.Difficile Negative (Negative); CDIFFEPI 027 PRESUMPTIVE NEGATIVE (Negative)
[2024-09-05 16:59] LABS: C Reactive Protein* 0.5 mg/dL (0.5-1.0)
[2024-09-05 17:26] VITALS: BP 163/92; PULSE 72; RESP 18; O2SAT 99
== END 2024-09-05 18:34 | disposition home or self-care (01) ==
PROVIDERS: Emergency Provider Emergency Medicine
DX: K52.9 Noninfective gastroenteritis and colitis, unspecified (principal)
CPT/HCPCS: 36415; 74177; 80053; 83605; 83735; 83789; 85025; 86140; 87045; 87046; 87427; 87493; 93005; 99284; 99285; J2405; J7030; Q9967

== ENCOUNTER 2025-06-03 06:57 | Emergency (ER) | payer MEDICARE, OTHER, SELFPAY ==
--- OUTSIDE RECORDS SUMMARY | 2025-04-19 15:00 | XMS_ITS | Encounter Summary ---
Author Organization [facility] Address [address] [place] [address] Care Team Providers Care Life Guard Name Role Phone Unavailable Primary Care Provider Unavailabl e Reason for Visit * ReasonCommentsConsultRetention * Outpatient (Routine) - ClosedSpecialtyDiagnoses / ProceduresReferred By ContactReferred To ContactUrology Diagnoses Other Retention Of Urine Benign Prostatic Hyperplasia Hypertrophy With Obstruction Debby Morales P.A.-C. [address] [place] [address] Phone: tel: fax: [facility] Region Referral IDStatusReasonStart DateExpiration DateVisits RequestedVisits [id number]/30/20255/ Encounter Details DateTypeDepartmentCare Team (Latest Contact Info)Yoeymetsrin17/12/2025 3:00 PM CSTComprehensive Visit Department of Urology in [place], [place] [address] [place] [address] Silver Arias M.D. [address] [place] [phone] Retention Urinary (Primary Dx); Benign Prostatic Hyperplasia With Lower Urinary Tract Symptom Discharge Disposition: Home or Self Care Social History Tobacco UseTypesPacks/DayYears UsedDateSmoking Tobacco: FormerSmokeless Tobacco: NeverHunger Vital SignAnswerDate RecordedWithin the past 12 months, you worried that your food would run out before you got the money to buymore.Never true 01/06/2025Within the past 12 months, the food you bought just didn't last and you didn't have money to get more.Never true01/06/2025PRAPARE - Transportation AnswerDate RecordedIn the past 12 months, has lack of transportation kept you from medical appointments or from getting medications?No01/06/2025In the past 12 months, has lack of transportation kept you from meetings, work, or from getting things needed for daily living?No01/06/2025HC UtilitiesAnswerDate RecordedIn the past 12 months has the [employer], gas, oil, or water [employer] threatened to shut off services in your home?No01/06/2025Housing StabilityAnswerDate Recorded What is your living situation today?I have a steady place to live01/06/2025Sex and Gender InformationValueDate RecordedSex Assigned at BirthNot on fileLegal FcjQulf1607/10/2016 3:38 AM CSTGender IdentityNot on fileSexual OrientationNot on filedocumented as of this encounter Progress Notes * Silver Arias M.D. - 04/19/2025 3:00 PM CST HISTORY OF PRESENT ILLNESS DATE OF VISIT: 04/19/2025 SUBJECTIVE CHIEF COMPLAINT / REASON FOR VISIT David Velez is a 79 y.o. male who presents for evaluation of Consult (Retention). The patient verbally consented to an audio recording of their visit to assist with the completion of documentation. History of Present Illness Mr. David Andrade is an 79 year old male with an enlarged prostate who presents with urinary retention and catheter management issues. He is accompanied by his brother, Allan. He has been experiencing urinary retention due to an enlarged prostate, progressively worsening over the past two years. The prostate was significantly enlarged two years ago. A catheter was inserted approximately eight days ago after an unsuccessful attempt to urinate without it. He feels the urge to urinate but is unable to do so. Prior to this, he underwent several attempts to urinate post-surgery, which included straight catheterization multiple times before a permanent catheter was placed. He has a history of being very active, including climbing mountains and hunting, but has been less active recently due to leg issues and weight gain of about forty pounds. He also notes some difficulty with bowel movements, although he is unsure if this is related to his prostate issues. He is currently on blood thinners. He wants to resolve his urinary issues and remove the catheter, aiming for the least invasive method possible. The following portions of the patient's history were reviewed and updated as appropriate: allergies, current medications, family history, medical history, social history, surgical history, and problem list. I-PSS I-PSS Urinary Symptoms Score: I-PSS Quality of Life Score: REVIEW OF SYSTEMS REVIEW OF SYSTEMS OBJECTIVE VITAL SIGNS There were no vitals taken for this visit. PHYSICAL EXAM URO Physical Exam Straight Cath/Bladder Scan Results Post void residual urine via electronically calibrated bladder ultrasound Lab Results Component Value Date PSA 4.1 01/29/2023 No results found for this or any previous visit (from the past 72 hours). ASSESSMENT / PLAN 1. Retention Urinary 2. Benign Prostatic Hyperplasia With Lower Urinary Tract Symptom No orders of the defined types were placed in this encounter. No orders of the defined types were placed in this encounter. Urinary retention due to benign prostatic hyperplasia with chronic indwelling urinary catheter Chronic urinary retention secondary to significantly enlarged prostate, noted at 200 g by his priorurologist, causing obstruction and inability to void. Current indwelling catheter in place for morethan 10 days. Previous attempts to remove catheter and perform straight catheterization were unsuccessful. Bladder muscle function appears intact as he was able to void prior to recent catheterization. Emphasized importance of addressing the enlarged prostate to prevent further complications. Discussed HoLEP surgery as a surgical option with a high likelihood of catheter removal post-procedure. Risks include potential stress incontinence, which may improve over time but could persist. Benefits include potential catheter removal and improved urinary function. - Arrange for cystoscopy, prostate sizing ultrasound and HoLEP consultation with Dr. Dumas. - Fill and pull on approximately 05/09/25, either in [place] or other [facility] location. Signed by: Silver Arias M.D. 04/24/2025 12:58 PM SPRAY CREW Y CREW documented in this encounter Plan of Treatment DateTypeDepartmentCare Team (Latest Contact Info)Epumbdhyjwu63/30/2025 11:30 AM CSTProcedure visit Department of Urology in [place], [place] [address] [phone] Silver Arias M.D. [address] [place] [phone] 06/09/2025 12:30 PM CSTAppointment Department of Laboratory Medicine in [place], [place] [address] [place] [phone] Silver Arias M.D. [address] [place] [phone] 06/09/2025 1:30 PM CSTAppointment Department of Radiology in [place], [place] [address] [place] [phone] Silver Arias M.D. [address] [place] [phone] 07/12/2025 12:30 PM CSTProcedure visit Department of Urology in [address] [phone] Marvin Dumas M.D. [address] [place] [phone] Discharge Disposition: Home or Self Care07/12/2025 1:15 PM CSTOffice Visit Department of Urology in [address] [phone] Marvin Dumas M.D. [address] [place] [phone] Discharge Disposition: Home or Self Caredocumented as of this encounter Visit Diagnoses Diagnosis Retention Urinary- Primary Benign Prostatic Hyperplasia With Lower Urinary Tract Symptom documented in this encounter Additional Health Concerns AssessmentNoted TimePHQ-9 Depression Total Score: 2:21 PM SPRAY CREW documented as of this encounter
--- OUTSIDE RECORDS SUMMARY | 2025-04-25 12:52 | XMS_ITS | Encounter Summary ---
Author Organization [facility] Address [address] [place] [address] Care Team Providers Care Feather Stitcher Name Role Phone Unavailable Primary Care Provider Unavailabl e Reason for Referral * Outpatient (Routine) - ClosedSpecialtyDiagnoses / ProceduresReferred By ContactReferred To Contact Diagnoses Arthritis Hip Procedures DX Hip And Pelvis Right 2-3 Views Marvin Ward M.D. [address] [place] [address] Phone: tel: fax: [facility] Region Referral IDStatusReasonStart DateExpiration DateVisits RequestedVisits [id number]/19/202512/ WARE DEPLOYMENT ENGINEER Reason for Visit * Outpatient (Routine) - ClosedSpecialtyDiagnoses / ProceduresReferred By ContactReferred To Contact Diagnoses Arthritis Hip Procedures DX Hip And Pelvis Right 2-3 Views Marvin Ward M.D. [address] [place] [address] Phone: tel: fax: [facility] Region Referral IDStatusReasonStart DateExpiration DateVisits RequestedVisits [id number]/19/202512/20/202611 Encounter Details DateTypeDepartmentCare Team (Latest Contact Info)Rhccwpneeap18/18/2025 12:52 PM SOFTWARE DEPLOYMENT ENGINEER - 04/25/2025 11:59 PM CSTHospital Encounter Department of Radiology in [place], [place] [address] [place] [address] Marvin Ward M.D. [address] [place] [address] Arthritis Hip Discharge Disposition: Home or Self Care Social [...] RecordedIn the past 12 months has the electric, gas, oil, or water company threatened to shut off services in your home?No01/06/2025Housing StabilityAnswerDate Recorded What is your living situation today?I have a steady place to live01/06/2025Sex and Gender InformationValueDate RecordedSex Assigned at BirthNot on fileLegal YgvPiya9807/10/2016 3:38 AM CSTGender IdentityNot on fileSexual OrientationNot on filedocumented as of this encounter Medications at Time of Discharge MedicationSigDispense QuantityRefillsLast FilledStart DateEnd Date acetaminophen (TylenoL) 500 mg tablet Take 2 tablets (1,000 mg total) by mouth every 6 (six) hours as needed for pain. 30 tablet 111 10:58 PM CDT1 amLODIPine (Norvasc) 5 mg tablet Take 5 mg by mouth daily. for blood xfuxixfo23/20/2025 apixaban (Eliquis) 5 mg tablet Take 1 tablet (5 mg total) by mouth 2 (two) times a day. 60 tablet / aspirin [address] tablet Take 1 tablet (81 mg total) by mouth daily. 30 tablet atorvastatin (Lipitor) 40 mg tablet Take 1 tablet (40 mg total) by mouth at bedtime. 30 tablet bisacodyL (Dulcolax) 10 mg suppository Insert 10 mg into the rectum at bedtime as needed for constipation.03/21/2025 bisacodyL (Dulcolax) 5 mg EC tablet Take 10 mg by mouth at bedtime as needed for constipation.03/21/2025 cholecalciferol, vitamin D3, 25 mcg (1,000 Unit) tablet Take 25 mcg by mouth daily.02/23/2025 finasteride (Proscar) 5 mg tablet Take 5 mg by mouth daily. lidocaine HCL (Glydo) 2 % topical jelly Insert 5 mL (1 Application total) into the urethra as needed (Pain associated with catheterization). 1 applicator 111 10:57 PM CDT1 lisinopriL 40 mg tablet Take 1 tablet (40 mg total) by mouth daily. 30 tablet metoprolol succinate (Toprol XL) 25 mg 24 hr tablet Take 1 tablet (25 mg total) by mouth daily. Do not crush or chew. 30 tablet polyethylene glycol (Miralax) 17 gram powder packet Take 1 packet by mouth at bedtime as needed for constipation.03/21/2025 sennosides-docusate sodium (Senokot-S) 8.6-50 mg per tablet Take 3 tablets by mouth 2 (two) times a day.01/04/2024 tamsulosin (Flomax) 0.4 mg 24 hr capsule Take 0.4 mg by mouth daily.documented as of this encounter Plan of Treatment DateTypeDepartmentCare Team (Latest Contact Info)Xesehcwkfiy96/30/2025 11:30 AM CSTProcedure visit Department of Urology in [place], [place] [address], [place] [address] Silver Arias M.D. [address] [place] [phone] 06/09/2025 12:30 PM CSTAppointment Department of Laboratory Medicine in [place], [place] [address] [place] [phone] Silver Arias M.D. [address] [place] [phone] 06/09/2025 1:30 PM CSTAppointment Department of Radiology in [place], [place] [address] [phone] Silver Arias M.D. [address] [place] [phone] 07/12/2025 12:30 PM CSTProcedure visit Department of Urology in [address] [phone] Marvin Dumas M.D. [address] [place] [phone] Discharge Disposition: Home or Self Care07/12/2025 1:15 PM CSTOffice Visit Department of Urology in [address] [phone] Marvin Dumas M.D. [address] [place] [phone] Discharge Disposition: Home or Self Caredocumented as of this encounter Procedures Procedure NamePriorityDate/TimeAssociated DiagnosisCommentsDX HIP AND PELVIS RIGHT 2-3 VIEWSRAD - Routine (most inpatients and all outpatients)04/25/2025 1:09 PM SOFTWARE DEPLOYMENT ENGINEER Arthritis Hip documented in this encounter Results * DX Hip And Pelvis Right 2-3 Views (04/25/2025 1:09 PM SOFTWARE DEPLOYMENT ENGINEER)Anatomical Region LateralityModalityLower Extremity, Pelvis, Hip, Musculoskeletal RST LOS, Musculoskeletal ARZ LOS, Muskuloskeletal FLALOSRightDigital Radiography Specimen (Source)Anatomical Location / LateralityCollection Method / Volume Collection TimeReceived Time Impressions 04/25/2025 1:29 PM SOFTWARE DEPLOYMENT ENGINEER Right BERT. The acetabular screw is proud to the iliac bone. No evidence of hardware failure or loosening. Left BERT. No pelvic fracture. Degenerative changes lower lumbar spine, SI joints, and pubic symphysis. Demineralization. Vascular calcifications. Narrative 04/25/2025 1:29 PM SOFTWARE DEPLOYMENT ENGINEER EXAM: DX HIP AND PELVIS RIGHT 2-3 VIEWS Procedure Note Phi Gonzales M.D. - 04/25/2025 EXAM: DX HIP AND PELVIS RIGHT 2-3 VIEWS IMPRESSION: Right BERT. The acetabular screw is proud to the iliac bone. No evidence of hardware failure or loosening. Left BERT. No pelvic fracture. Degenerativechanges lower lumbar spine, SI joints, and pubic symphysis.Demineralization. Vascular calcifications. Authorizing ProviderResult TypeResult StatusDavimello HERNAN[facility]Z [facility] PROCEDURESFinal Result documented in this encounter Visit Diagnoses Diagnosis Arthritis Hip documented in this encounter Additional Health Concerns AssessmentNoted TimePHQ-9 Depression Total Score: 2:21 PM SOFTWARE DEPLOYMENT ENGINEER documented as of this encounter
--- OUTSIDE RECORDS SUMMARY | 2025-04-25 13:30 | XMS_ITS | Encounter Summary ---
Author Organization [facility] Address [address] [place] [address] Care Team Providers Care Cosmetician Name Role Phone Unavailable Primary Care Provider Unavailabl e Reason for Visit * ReasonCommentsArthroplastyDOS:03/16/25Follow-upDOS:03/16/25 * Outpatient (Routine) - ClosedSpecialtyDiagnoses / ProceduresReferred By ContactReferred To ContactOrthopedic Surgery Marvin Ward M.D. [address] [place] [address] Phone: tel: fax: [facility] Region Referral IDStatusReasonStart DateExpiration DateVisits RequestedVisits [id number]/19/20253/ Encounter Details DateTypeDepartmentCare Team (Latest Contact Info)Yqchmoltiwc69/18/2025 1:30 PM CSTOffice Visit Department of Orthopedic Surgery in [place], [place] [address] [place] [address] Marvin Ward M.D. [address] [place] [address] Arthroplasty Total Hip Replacement Status Post Right (Primary Dx) Social History Tobacco UseTypesPacks/DayYears UsedDateSmoking Tobacco: FormerSmokeless Tobacco: NeverHunger Vital SignAnswerDate RecordedWithin the past 12 months, you worried that your food would run out before you got the money to buymore.Never true 08/01/2025Within the past 12 months, the food you [...] RecordedIn the past 12 months has the [employer], gas, oil, or water [email or web address] threatened to shut off services in your home?No01/06/2025Housing StabilityAnswerDate Recorded What is your living situation today?I have a steady place to live01/06/2025Sex and Gender InformationValueDate RecordedSex Assigned at BirthNot on fileLegal FvzWsfn4807/10/2016 3:38 AM CSTGender IdentityNot on fileSexual OrientationNot on filedocumented as of this encounter Functional Status * Pain AssessmentQuestionAnswerDate of AssessmentAuthorPain LocationLeg 04/25/2025 1:15 PM Jaida Wise L.P.N.Pain AaykluvkvqiAeaxj09/18/2025 1:15 PM Jaida Wise L.P.N.Pain DjrjplohvvbMjlsx61/18/2025 1:15 PM Jaida Wise L.P.N.Pain CvilyvvjqBksrdklbdcxi39/18/2025 1:15 PM Jaida Wise L.P.N.Clinical ProgressionGradually chmgoserl89/18/2025 1:15 PM Jaida Wise L.P.N.Pain Eydsz69506/25/2024 1:15 PM Jaida Wise L.P.N. documented as of this encounter Progress Notes * Marvin Ward M.D. - 04/25/2025 1:30 PM CST Patient is an 79-year-old male who is 6 weeks postop right total hip arthroplasty done on 03/16/25. He is doing very well postoperatively with his hip. No pain. He is walking well. He is very happy with his hip. His incision has healed well. X-rays taken today show the components to be in excellent p osition and well fixed. He has had problems with not being able to avoid, so he has had a catheter in, but he is going to be seen for that here soon. His right knee bothers him somewhat. That knee isarthritic. He has had a lot of swelling in his whole leg, but that has been going down, especially now the last 3 days. OBJECTIVE PHYSICAL EXAMINATION Gait, he is able to ambulate with a normal heel-toe gait with a walker. Extremities, right hip, the incision is well healed. No redness or warmth or significant swelling. No signs of any infection. He has a decent range of motion of the right hip without pain. Motor and sensation is grossly intact in the right lower extremity. ASSESSMENT / PLAN He will continue with exercises given him in therapy. Just needs to get stronger. He is doing well postoperatively, healing well. Full recovery in 6 months to a year, so at 6 weeks, it is encouraging. I will see him back for any other orthopedic problems in the future. If his knee gets worse, he will see me back for that. ULAR SAW EDGE FUSER ULAR SAW EDGE FUSER documented in this encounter Plan of Treatment DateTypeDepartmentCare Team (Latest Contact Info)Gkmkhkcavok06/30/2025 11:30 AM CSTProcedure visit Department of Urology in [place], [place] [address] [phone] Silver Arias M.D. [address] [place] [phone] 06/09/2025 12:30 PM CSTAppointment Department of Laboratory Medicine in [place], [place] [address] [phone] Silver Arias M.D. [address] [place] [phone] 06/09/2025 1:30 PM CSTAppointment Department of Radiology in [place], [place] [address] [place] [address] Silver Arias M.D. [address] [place] [phone] 07/12/2025 12:30 PM CSTProcedure visit Department of Urology in [address] [phone] Marvin Dumas M.D. [address] [place] [phone] Discharge Disposition: Home or Self Care07/12/2025 1:15 PM CSTOffice Visit Department of Urology in [address] [phone] Marvin Dumas M.D. [address] [place] [phone] Discharge Disposition: Home or Self Caredocumented as of this encounter Visit Diagnoses Diagnosis Arthroplasty Total Hip Replacement Status Post Right- Primary documented in this encounter Additional Health Concerns AssessmentNoted TimePHQ-9 Depression Total Score: 2:21 PM CIRCULAR SAW EDGE FUSER documented as of this encounter
--- OUTSIDE RECORDS SUMMARY | 2025-04-28 16:00 | XMS_ITS | Encounter Summary ---
Author Organization [facility] Address [address] [place] [address] Care Team Providers Care Rn Quality Name Role Phone None Reported, Pcp Primary Care Provider Unavail able Reason for Referral * Outpatient (Routine) - AuthorizedSpecialtyDiagnoses / ProceduresReferred By ContactReferred To ContactUrology Diagnoses Benign Prostatic Hyperplasia Without Obstruction Ye Stafford M.D. [address] [place] [address] Phone: tel: fax: [facility] Region Referral IDStatusReasonStart DateExpiration DateVisits RequestedVisits [id number]/21/20255/23/202711 GER AND SETTER * Outpatient (Routine) - AuthorizedSpecialtyDiagnoses / ProceduresReferred By ContactReferred To Contact Diagnoses Hypertension Essential Primary Ye Stafford M.D. [address] [place] [address] Phone: tel: fax: [facility] Region Referral IDStatusReasonStart DateExpiration DateVisits RequestedVisits [id number]/21/20255/23/202711 GER AND SETTER * Outpatient (Routine) - AuthorizedSpecialtyDiagnoses / ProceduresReferred By ContactReferred To Contact Diagnoses Swelling Scrotum Procedures US Scrotum Ye Stafford M.D. [address] [place] [phone] Phone: tel: fax: [facility] Region Referral IDStatusReasonradha DateExpiration DateVisits RequestedVisits [id number]/21/20252/ GER AND SETTER Reason for Visit * ReasonCommentsEstablish Care * Appointment Request (Routine) - ClosedSpecialtyDiagnoses / ProceduresReferred By ContactReferred To ContactFamily Medicine Referral IDStatusReasonradha DateExpiration DateVisits RequestedVisits [id number]/29/20251/ Encounter Details DateTypeDepartmentCare Team (Latest Contact Info)Ouvqakmoeyh03/21/2025 4:00 PM CSTComprehensive Visit Department of Family Medicine, [facility], in [place], [place] [address] [place] [phone] Ye Stafford M.D. [address] [phone] Swelling Scrotum (Primary Dx); Benign Prostatic Hyperplasia Without Obstruction; Hypertension Essential Primary; Hyperlipidemia Social History Tobacco UseTypesPacks/DayYears UsedDateSmoking Tobacco: FormerSmokeless Tobacco: Never Tobacco Cessation:Counseling Given: Not Answered Hunger Vital SignAnswerDate RecordedWithin the past 12 months, you worried that your food would run out before you got the money to buymore.Never true01/06/2025 Within the past 12 months, the food you bought just didn't last and you didn't have money to get more.Never true01/06/2025PRAPARE - TransportationAnswerDate RecordedIn the past 12 months, has lack of transportation kept you from medical appointments or from getting medications?No01/06/2025In the past 12 months, has lack of transportation kept you from meetings, work, or from getting things needed for daily living?No01/06/2025HC UtilitiesAnswerDate RecordedIn the past 12 months has the electric, gas, oil, or water company threatened to shut off services in your home?No01/06/2025Housing StabilityAnswerDate RecordedWhat is your living situation today?I have a steady place to live01/06/2025Sex and Gender InformationValueDate RecordedSex Assigned at BirthNot on fileLegal Sex Male07/10/2016 3:38 AM CSTGender IdentityNot on fileSexual OrientationNot on filedocumented as of this encounter Last Filed Vital Signs Vital SignReadingTime TakenCommentsBlood Vdqblccp166/8404/28/2025 4:29 PM WRINGER AND SETTER FfuuuhIkovx7120/21/2025 3:46 PM FOADumqtogkrdp86.6 ??C (97.8 ??F)04/28/2025 3:40 PM CSTRespiratory Rate--Oxygen Saturation--Inhaled Oxygen Concentration--Weight 119 kg (261 lb 14.5 oz)04/28/2025 3:40 PM CSTHeight--Body Mass Index35.52 04/07/2025 8:20 AM CDTdocumented in this encounter Progress Notes * Ye Stafford M.D. - 04/28/2025 4:00 PM CST DATE OF VISIT: 04/28/2025 SUBJECTIVE CHIEF COMPLAINT / REASON FOR VISIT David Velez is a 79 y.o. male who presents for evaluation of [facility] Care. The patient verbally consented to an audio recording of their visit to assist with the completion of documentation. History of Present Illness Mr. David Andrade is an 79 year old male who presents to [facility] care and address urological issues. He is seeking to establish care locally due to dissatisfaction with the [place] system, where he experiences frequent changes in doctors and long wait times for appointments. He plans to switch to [facility] next year and desires a local doctor for more consistent care. He has a history of multiple joint replacements, including a right hip replacement on March 16, 2025, a left knee replacement a year and a half ago, and a previous hip replacement 15 years ago. Post-operatively, he has been unable to urinate, necessitating the use of a catheter. He reports a very large prostate and has been told by his urologist that a bladder scan and possible prostate procedure may be needed. He has scrotal swelling, describing his scrotum as 'big and large like it's filled up with something.' No urinary symptoms such as burning or itching. For his enlarged prostate, he takes tamsulosin (Flomax) 0.4 mg and finasteride 5 mg daily. He is on multiple blood pressure medications: amlodipine 5 mg, lisinopril 40 mg, and metoprolol succinate 25 mg, all taken once daily. His blood pressure is usually around 138, but he reports that ithas been as high as 150 in the past. He used to be very active, engaging in mountain climbing, hunting, and fishing. REVIEW OF SYSTEMS A 10-point ROS was obtained and negative except as above. OBJECTIVE VITAL SIGNS BP (!) 174/89 (BP Location: Right arm, Patient Position: Sitting, Cuff Size: Large) Pulse 64 Temp 36.6 ??C (Temporal) Wt 119 kg BMI 35.52 kg/m?? Medications, Allergies, Medical History, Family History, Social History reviewed and updated in patient's chart. Physical Exam General: NAD Heart: S1/S2. Regular rate and rhythm. No murmurs, rubs or gallops. Lungs: Clear to auscultation bilaterally. No wheezing, rales or rhonchi. Abdomen: Soft, nontender & nondistended. Positive BS. No organomegaly. Genitourinary: Noted scrotal enlargement; catheter in place or recent history of catheterization. Extremities: No edema. Neuro: AAO x3. No focal deficit. ASSESSMENT/ PLAN Swelling Scrotum Swelling in the scrotum, possibly due to fluid accumulation. Differential includes hydrocele. No urinary symptoms reported. - Ordered scrotal ultrasound to evaluate swelling. - Ordered urinalysis and bacterial culture to rule out infection. Orders: US Scrotum; Future Benign Prostatic Hyperplasia Without Obstruction Enlarged prostate with urinary retention requiring an indwelling catheter. Scheduled for catheter removal and bladder scan on May 09. Potential for HoLEP procedure. Follow-up with urology is necessary for further management. - Follow up on catheter removal and bladder scan on May 09. - Referred to urology at [facility] for consultation and potential HoLEP procedure. - Ordered urinalysis and PSA to evaluate prostate health. Orders: Urology - General - urinary retention consult (clinic); Future Urinalysis, with Microscopic: Urine, Midstream; Future Bacterial Culture, Aerobic + Susceptibility, Urine; Future PSA (Prostate-Specific Antigen), Diagnostic; Future Hypertension Essential Primary Blood pressure elevated at 174/89, repeat 149/80. Currently on amlodipine, lisinopril, and metoprolol. Importance of home blood pressure monitoring discussed. - Continue current antihypertensive medications: amlodipine, lisinopril, and metoprolol. - Maintain a blood pressure journal at home. - Scheduled a primary care hypertension nurse visit for blood pressure recheck and review of home readings. Orders: Primary care hypertension nurse visit (clinic); Future Hyperlipidemia Currently managed with atorvastatin 40 mg at bedtime. - Continue atorvastatin 40 mg at bedtime. Follow up As needed. Ye Stafford M.D. Department of Family Medicine [facility] GER AND SETTER documented in this encounter Miscellaneous Notes * Assessment & Plan Note - Ye Stafford M.D. - 04/28/2025 4:00 PM CSTAssociated Problem(s): Hyperlipidemia Currently managed with atorvastatin 40 mg at bedtime. - Continue atorvastatin 40 mg at bedtime. Follow up As needed. Ye Stafford M.D. Department of Family Medicine [facility] GER AND SETTER GER AND SETTER documented in this encounter Plan of Treatment DateTypeDepartmentCare Team (Latest Contact Info)Zdnutpyuuex37/30/2025 11:30 AM CSTProcedure visit Department of Urology in [place], [place] [address] [place] [address] Silver Arias M.D. [address] [place] [phone] 06/09/2025 12:30 PM CSTAppointment Department of Laboratory Medicine in [place], [place] [address] [address] Silver Arias M.D. [address] [place] [phone] 06/09/2025 1:30 PM CSTAppointment Department of Radiology in [place], [place] [address] [phone] Silver Arias M.D. [address] [place] [phone] 07/12/2025 12:30 PM CSTProcedure visit Department of Urology in [address] [phone] Marvin Dumas M.D. [address] [place] [phone] Discharge Disposition: Home or Self Care07/12/2025 1:15 PM CSTOffice Visit Department of Urology in [address] [phone] Marvin Dumas M.D. [address] [place] [phone] Discharge Disposition: Home or Self CareNameTypePriorityAssociated Diagnoses Order ScheduleUS ScrotumImagingRAD - Routine (most inpatients and all outpatients) Swelling Scrotum Expected: 04/28/2025, Expires: 07/29/2026NameTypePriorityAssociated Diagnoses Order SchedulePrimary care hypertension nurse visit (clinic)Outpatient Referral Routine Hypertension Essential Primary Expected: 05/12/2025, Expires: 07/29/2026Urology - General - urinary retention consult (clinic)Outpatient ReferralRoutine Benign Prostatic Hyperplasia Without Obstruction Expected: 04/28/2025, Expires: 07/29/2026documented as of this encounter Results * Bacterial Culture, Aerobic + Susceptibility, Urine (04/28/2025 5:02 PM WRINGER AND SETTER) ComponentValueRef RangeTest MethodAnalysis TimePerformed AtPathologist SignatureUrine CultureMultiple organisms >10,000 cfu/mL present suggesting probable contamination. Susceptibilities will not be performed. 04/29/2025 4:39 PM CSTMKTOSpecimen (Source)Anatomical Location / Laterality Collection Method / VolumeCollection TimeReceived TimeUrine (Urine, Indwelling Catheter)04/28/2025 5:02 PM CST04/28/2025 7:02 PM CSTComment:Specimen Source Site: Urine Narrative Authorizing ProviderResult TypeResult StatusYe Stafford M.D.LAB MICROBIOLOGY - GENERAL ORDERABLESFinal ResultPerforming OrganizationAddressCity/State/ZIP Code Phone Number [facility] [address] [place] [address], [facility] in [place] [address] [place] [address] * (ABNORMAL) Urinalysis, with Microscopic: Urine, Midstream (04/28/2025 5:02 PM WRINGER AND SETTER)ComponentValueRef RangeTest MethodAnalysis TimePerformed AtPathologist SignatureSourceUrine, Urine, Aafuaidgz16/21/2025 5:07 PM CSTOWATClarityCloudy (A)Clear04/28/2025 5:22 PM YXXENPYMvkoeKeytqw47/21/2025 5:22 PM CSTOWAT Comment: ----REFERENCE VALUE---- Colorless Yellow Lupis BloodSmall(A)Xhkwuext83/21/2025 5:22 PM CSTOWATNitrite, UPositive(A)Negative 04/28/2025 5:22 PM CSTOWATLeukocyte EsteraseLarge(A)Piarvcrk40/21/2025 5:22 PM CSTOWATProtein, U30(A)mg/dL04/28/2025 5:22 PM CSTOWATComment: ----REFERENCE VALUE---- Negative Trace GlucoseNegativeNegative mg/dL04/28/2025 5:22 PM CSTOWATKetoneNegativeNegative mg/dL11/ 5:22 PM BTNJYNQNeppbwprjWbsosnucWzgkqzdt79/21/2025 5:22 PM WRINGER AND SETTER OWATpH7.05.0 - 8.011 5:22 PM CSTOWATSpecific Gravity1.0141.001 - 1.035 04/28/2025 5:22 PM CSTOWATUrobilinogen0.20.2 - 1.0 mg/dL04/28/2025 5:22 PM WRINGER AND SETTER OWATWhite Blood Cells>100(A)/hpf04/28/2025 5:22 PM CSTOWATComment: ----REFERENCE VALUE---- Males: 0-3 Females: 0-10 Unknown: 0-10 Red Blood Jjmph65-90(A)0 - 2 /hpf04/28/2025 5:22 PM CSTOWATDysmorphic Red Blood Cells<=25<=25 %04/28/2025 5:22 PM CSTOWATMucusPresent/hpf04/28/2025 5:22 PM WRINGER AND SETTER OWATBacteriaPresent(A)None Seen04/28/2025 5:22 PM CSTOWATSpecimen (Source) Anatomical Location / LateralityCollection Method / VolumeCollection Time Received TimeUrine (Urine, Midstream)04/28/2025 5:02 PM CST04/28/2025 5:02 PM WRINGER AND SETTER Narrative Authorizing ProviderResult TypeResult StatusYe Stafford M.D.LAB URINE ORDERABLES Final ResultPerforming OrganizationAddressCity/State/ZIP CodePhone Number [facility] [address] [address], [place] OWAT [facility] in [place] [address] [place] [address] * PSA (Prostate-Specific Antigen), Diagnostic (04/28/2025 4:58 PM WRINGER AND SETTER)Component ValueRef RangeTest MethodAnalysis TimePerformed AtPathologist Signature Prostate-Specific Ag2.6<=7.2 ng/mL04/28/2025 6:31 PM CSTOWATComment: ----ADDITIONAL INFORMATION---- The testing method is an electrochemiluminescence assay manufactured by [employer] and performed on the Modular or gDecide system. Values obtained with different assay methods or kits may be different and cannot be used interchangeably. Test results cannot be interpreted as absolute evidence for the presence or absence of malignant disease. Specimen (Source)Anatomical Location / LateralityCollection Method / Volume Collection TimeReceived TimeBlood (Blood, Venous)04/28/2025 4:58 PM WRINGER AND SETTER 04/28/2025 5:02 PM WRINGER AND SETTER Narrative Authorizing ProviderResult TypeResult StatusAdasy Stafford M.D.LAB BLOOD ADD-ON Final ResultPerforming OrganizationAddressCity/State/ZIP CodePhone Number [facility] [address] [place] [address], [facility] OWAT [facility] in [place] [address] [place] [address] documented in this encounter Visit Diagnoses Diagnosis Swelling Scrotum- Primary Benign Prostatic Hyperplasia Without Obstruction Hypertension Essential Primary Hyperlipidemia documented in this encounter Additional Health Concerns AssessmentNoted TimePHQ-9 Depression Total Score: 2:21 PM WRINGER AND SETTER documented as of this encounter Care Teams Team MemberRelationshipSpecialtyStart DateEnd Date None Reported, Pcp PCP - GeneralFamily Hovsfjqu00/21/2511documented as of this encounter
--- OUTSIDE RECORDS SUMMARY | 2025-04-28 16:38 | XMS_ITS | Encounter Summary ---
Author Organization [facility] Address [address] [place] [address] Care Team Providers Care Knot Saw Operator Name Role Phone None Reported, Pcp Primary Care Provider Unavail able Encounter Details DateTypeDepartmentCare Team (Latest Contact Info)Payucoamzmb53/21/2025 4:38 PM CSTHospital Encounter Department of Laboratory Medicine in [place], [place] [address] [place] [phone] Ye Stafford M.D. [address], [place] [address] Benign Prostatic Hyperplasia Without Obstruction Discharge Disposition: Home or Self Care Social [...] InformationValueDate RecordedSex Assigned at BirthNot on fileLegal MhdTidp4507/10/2016 3:38 AM CSTGender IdentityNot on fileSexual OrientationNot on filedocumented as of this encounter Medications at Time of Discharge MedicationSigDispense QuantityRefillsLast FilledStart DateEnd Date acetaminophen (TylenoL) 500 mg tablet Take 2 tablets (1,000 mg total) by mouth every 6 (six) hours as needed for pain. 30 tablet 10:58 PM CDT1 amLODIPine (Norvasc) 5 mg tablet Take 5 mg by mouth daily. for blood pfpaxysq97/20/2025 apixaban (Eliquis) 5 mg tablet Take 1 [...] needed (Pain associated with catheterization). 1 applicator 10:57 PM CD03/27/2025 lisinopriL 40 mg tablet Take 1 tablet (40 mg total) by mouth daily. 30 tablet / metoprolol succinate (Toprol XL) 25 mg 24 [...] Plan of Treatment DateTypeDepartmentCare Team (Latest Contact Info)Pkamzmxcwqk47/30/2025 11:30 AM CSTProcedure visit Department of Urology in [address] [phone] Silver Arias M.D. [address] [place] [phone] 06/09/2025 12:30 PM CSTAppointment Department of Laboratory Medicine in [address] [phone] Silver Arias M.D. [address] [place] [phone] 06/09/2025 1:30 PM CSTAppointment Department of Radiology in [address] [address] Silver Arias M.D. [address] [place] [phone] 07/12/2025 12:30 PM CSTProcedure visit Department of Urology in [address] [phone] Marvin Dumas M.D. [address] [place] [phone] Discharge Disposition: Home or Self Care07/12/2025 1:15 PM CSTOffice Visit Department of Urology in [place], [place] [address] [place] [address] Marvin Dumas M.D. [address] [place] [phone] Discharge Disposition: Home or Self Caredocumented as of this encounter Procedures Procedure NamePriorityDate/TimeAssociated DiagnosisCommentsPROSTATE-SPECIFIC AG (PSA) DIAGNOSTIC, FTbenkne77/21/2025 4:58 PM WIRE STRANDER Benign Prostatic Hyperplasia Without Obstruction documented in this encounter Results * PSA (Prostate-Specific Antigen), Diagnostic (04/28/2025 4:58 PM WIRE STRANDER)Component ValueRef RangeTest MethodAnalysis TimePerformed AtPathologist Signature Prostate-Specific Ag2.6<=7.2 ng/mL04/28/2025 6:31 PM CSTOWATComment: ----ADDITIONAL INFORMATION---- The testing method is an electrochemiluminescence assay manufactured by [employer] and performed on the Modular or Beth system. Values obtained with different assay methods or kits may be different and cannot be used interchangeably. Test results cannot be interpreted as absolute evidence for the presence or absence of malignant disease. Specimen (Source)Anatomical Location / LateralityCollection Method / Volume Collection TimeReceived TimeBlood (Blood, Venous)04/28/2025 4:58 PM WIRE STRANDER 04/28/2025 5:02 PM WIRE STRANDER Narrative Authorizing ProviderResult TypeResult StatusYe Stafford M.D.LAB BLOOD ADD-ON Final ResultPerforming OrganizationAddressCity/State/ZIP CodePhone Number [facility] [address] [place] [address], [place] OW[employer] [facility] in [place] [address] [place] [address] documented in this encounter Visit Diagnoses Diagnosis Benign Prostatic Hyperplasia Without Obstruction documented in this encounter Additional Health Concerns AssessmentNoted TimePHQ-9 Depression Total Score: 2:21 PM WIRE STRANDER documented as of this encounter Care Teams Team MemberRelationshipSpecialtyStart DateEnd Date None Reported, Pcp PCP - GeneralFamily Ubffyhqp92/documented as of this encounter
--- OUTSIDE RECORDS SUMMARY | 2025-04-28 16:39 | XMS_ITS | Encounter Summary ---
Author Organization [facility] Address [address] [place] [address] Care Team Providers Care Operations Boardman Name Role Phone None Reported, Pcp Primary Care Provider Unavail able Encounter Details DateTypeDepartmentCare Team (Latest Contact Info)Kdinewjzxxh04/21/2025 4:39 PM AGRICULTURAL EQUIPMENT MECHANIC - 04/28/2025 11:59 PM CSTHospital Encounter Department of Laboratory Medicine in [place], [place] [address] [address] Ye Stafford M.D. [address], [place] [address] Benign Prostatic Hyperplasia Without Obstruction [...] InformationValueDate RecordedSex Assigned at BirthNot on fileLegal YmzPdgi2807/10/2016 3:38 AM CSTGender IdentityNot on fileSexual OrientationNot on filedocumented as of this encounter Medications at Time of Discharge MedicationSigDispense QuantityRefillsLast FilledStart DateEnd Date acetaminophen (TylenoL) 500 mg tablet Take 2 tablets (1,000 mg total) by mouth every 6 (six) hours as needed for pain. 30 tablet 10:58 PM CDT1 amLODIPine (Norvasc) 5 mg tablet Take 5 mg by mouth daily. for blood nblbayql05/20/2025 apixaban (Eliquis) 5 mg tablet Take 1 tablet (5 mg total) by mouth 2 (two) times a day. [address] tablet Take 1 [...] Plan of Treatment DateTypeDepartmentCare Team (Latest Contact Info)Xaksirfqmwh20/30/2025 11:30 AM CSTProcedure visit Department of Urology in [address] [address] Silver Arias M.D. [address] [place] [phone] 06/09/2025 12:30 PM CSTAppointment Department of Laboratory Medicine in [address] [address] Silver Arias M.D. [address] [place] [phone] 06/09/2025 1:30 PM CSTAppointment Department of Radiology in [address] [phone] Silver Arias M.D. [address] [place] [phone] 07/12/2025 12:30 PM CSTProcedure visit Department of Urology in [address] [address] Marvin Dumas M.D. [address] [place] [phone] Discharge Disposition: Home or Self Care07/12/2025 1:15 PM CSTOffice Visit Department of Urology in [place], [place] [address] [place] [address] Marvin Dumas M.D. [address] [place] [phone] Discharge Disposition: Home or Self Caredocumented as of this encounter Procedures Procedure NamePriorityDate/TimeAssociated DiagnosisCommentsBACTERIAL CULTURE, AEROBIC + SUSC, JTOQNUjavvno29/21/2025 5:02 PM AGRICULTURAL EQUIPMENT MECHANIC Benign Prostatic Hyperplasia Without Obstruction URINALYSIS WITH FLRELPEFHJUXgddoec42/21/2025 5:02 PM AGRICULTURAL EQUIPMENT MECHANIC Benign Prostatic Hyperplasia Without Obstruction documented in this encounter Results * Bacterial Culture, Aerobic + Susceptibility, Urine (04/28/2025 5:02 PM AGRICULTURAL EQUIPMENT MECHANIC) ComponentValueRef RangeTest MethodAnalysis TimePerformed AtPathologist SignatureUrine CultureMultiple organisms >10,000 cfu/mL present suggesting probable contamination. Susceptibilities will not be performed. 04/29/2025 4:39 PM CSTMKTOSpecimen (Source)Anatomical Location / Laterality Collection Method / VolumeCollection TimeReceived TimeUrine (Urine, Indwelling Catheter)04/28/2025 5:02 PM CST04/28/2025 7:02 PM CSTComment:Specimen Source Site: Urine Narrative Authorizing ProviderResult TypeResult StatusYe Stafford M.D.LAB MICROBIOLOGY - GENERAL ORDERABLESFinal ResultPerforming OrganizationAddressCity/State/ZIP Code Phone Number [facility] [address] [place] [address], [place] MKTO [facility] in [place] [address] [place] [address] * (ABNORMAL) Urinalysis, with Microscopic: Urine, Midstream (04/28/2025 5:02 PM AGRICULTURAL EQUIPMENT MECHANIC)ComponentValueRef RangeTest MethodAnalysis TimePerformed AtPathologist SignatureSourceUrine, Urine, Homkslhis06/21/2025 5:07 PM CSTOWATClarityCloudy (A)Clear04/28/2025 5:22 PM NIWJWKVVdhynJhbdiq79/21/2025 5:22 PM CSTOWAT Comment: ----REFERENCE VALUE---- Colorless Yellow Lupis BloodSmall(A)Lkapjciy00/21/2025 5:22 PM CSTOWATNitrite, UPositive(A)Negative 04/28/2025 5:22 PM CSTOWATLeukocyte EsteraseLarge(A)Hztvhtpg40/21/2025 5:22 PM CSTOWATProtein, U30(A)mg/dL04/28/2025 5:22 PM CSTOWATComment: ----REFERENCE VALUE---- Negative Trace GlucoseNegativeNegative mg/dL04/28/2025 5:22 PM CSTOWATKetoneNegativeNegative mg/dL04/28/2025 5:22 PM BAUCKKUXazicxgxoGppkhgevUrnaipyb62/21/2025 5:22 PM AGRICULTURAL EQUIPMENT MECHANIC OWATpH7.05.0 - 8.011 5:22 PM CSTOWATSpecific Gravity1.0141.001 - 1.035 04/28/2025 5:22 PM CSTOWATUrobilinogen0.20.2 - 1.0 mg/dL04/28/2025 5:22 PM AGRICULTURAL EQUIPMENT MECHANIC OWATWhite Blood Cells>100(A)/hpf04/28/2025 5:22 PM CSTOWATComment: ----REFERENCE VALUE---- Males: 0-3 Females: 0-10 Unknown: 0-10 Red Blood Ducam05-94(A)0 - 2 /hpf04/28/2025 5:22 PM CSTOWATDysmorphic Red Blood Cells<=25<=25 %04/28/2025 5:22 PM CSTOWATMucusPresent/hpf04/28/2025 5:22 PM AGRICULTURAL EQUIPMENT MECHANIC OWATBacteriaPresent(A)None Seen04/28/2025 5:22 PM CSTOWATSpecimen (Source) Anatomical Location / LateralityCollection Method / VolumeCollection Time Received TimeUrine (Urine, Midstream)04/28/2025 5:02 PM CST04/28/2025 5:02 PM AGRICULTURAL EQUIPMENT MECHANIC Narrative Authorizing ProviderResult TypeResult StatusAdam Rivera IngramLAB URINE ORDERABLES Final ResultPerforming OrganizationAddressCity/State/ZIP CodePhone Number [facility] [address] [place] [address], [facility] OWAT [facility] in [place] [address] [place] [address] documented in this encounter Visit Diagnoses Diagnosis Benign Prostatic Hyperplasia Without Obstruction documented in this encounter Additional Health Concerns AssessmentNoted TimePHQ-9 Depression Total Score: 2:21 PM AGRICULTURAL EQUIPMENT MECHANIC documented as of this encounter Care Teams Team MemberRelationshipSpecialtyStart DateEnd Date None Reported, Pcp PCP - GeneralFamily Nrhptlso89/21/2511documented as of this encounter
--- OUTSIDE RECORDS SUMMARY | 2025-05-09 09:30 | XMS_ITS | Encounter Summary ---
Author Organization [facility] Address [address] [place] [address] Care Team Providers Care Car Trimmer Name Role Phone Ye Stafford M.D. Primary Care Provider [phone] Reason for Referral * Outpatient (Routine) - AuthorizedSpecialtyDiagnoses / ProceduresReferred By ContactReferred To Contact Diagnoses Retention Urinary Procedures Bladder Catheterization Silver Arias M.D. 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 [address] [place] [address] Phone: tel: fax: [facility] Region Referral IDStatusReasonStart DateExpiration DateVisits RequestedVisits [id number]/21/20252/ Encounter Details DateTypeDepartmentCare Team (Latest Contact Info)Zgqqofnvlki33/02/2025 9:30 AM CSTProcedure visit Department of Urology in [place], [place] [address] [place] [address] Silver Arias M.D. [address] [place] [phone] Adilene Leon R.N. Retention Urinary; Benign Prostatic Hyperplasia With Lower Urinary Tract Symptom Social History Tobacco UseTypesPacks/DayYears UsedDateSmoking Tobacco: FormerSmokeless [...] InformationValueDate RecordedSex Assigned at BirthNot on fileLegal YbbDcte7107/10/2016 3:38 AM CSTGender IdentityNot on fileSexual OrientationNot on filedocumented as of this encounter Procedure Notes * Adilene Leon R.N. - 05/09/2025 9:30 AM CSTAssociated Order(s): URO Urethral cath fill / remove / voiding trial (fill / pull) Pre-Procedure Diagnose(s): Retention Urinary; Benign Prostatic Hyperplasia With Lower Urinary TractSymptom Post-Procedure Diagnose(s): Retention Urinary; Benign Prostatic Hyperplasia With Lower Urinary Tract Symptom URO Urethral cath fill / remove / voiding trial (fill / pull) Performed by: Adilene Leon R.N. Authorized by: Silver Arias M.D. PROCEDURE DETAILS Ultrasound image guidance used to localize target, identify at risk structures, and dynamically used to direct therapy to the target. Image(s) not saved. Filled bladder with 350 ml. Patient attempted to void,unfortuantely his stream was irregular causing uroflow to be unmeasurable. Post void bladder scan showed 249ml. CONSENT Consent obtained: verbal Consent given by: patient SEDATION / ANESTHESIA Anesthesia method: none POST-PROCEDURE DETAILS Complications: no apparent complications Lemus catheter will be replaced due to failed void trail. 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 - 05/09/2025 9:30 AM CSTAssociated Order(s): Bladder Catheterization Post-Procedure Diagnose(s): Retention Urinary Bladder Catheterization Performed by: Adilene Leon R.N. Authorized by: Silver Arias M.D. 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 [address] [place] [address] 06/09/2025 12:30 PM CSTAppointment Department of Laboratory Medicine in [place], [place] [address] [address] Silver Arias M.D. [address] [place] [phone] 06/09/2025 1:30 PM CSTAppointment Department of Radiology in [place], [place] [address] [phone] Silver Arias M.D. [address] [place] [phone] 07/12/2025 12:30 PM CSTProcedure visit Department of Urology in [address] [phone] Marvin Dumas M.D. [address] [place] [phone] Discharge Disposition: Home or Self Care07/12/2025 1:15 PM CSTOffice Visit Department of Urology in [address] [phone] Marvin Dumas M.D. 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 05/09/2025 11:54 AM Bladder Catheterization Performed by: Adilene Leon R.N. Authorized by: Silver Arias M.D. ?? PROCEDURE DETAILS Catheter insertion: urethral Urethral catheter type: exchange Catheter size: 16 Fr Balloon inflation amount (mL): 10 Bladder irrigation: no ?? Number of attempts: 1 Urine characteristics: clear and yellow CONSENT Consent obtained: verbal PRE-PROCEDURE DETAILS Indication: urinary retention ?? SEDATION / ANESTHESIA Anesthesia method: none POST-PROCEDURE DETAILS Procedure completed successfully: yes ?? Complications: no immediate complications ?? 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 05/09/2025 11:54 AM URO Urethral cath fill / remove / voiding trial (fill / pull) Performed by: Adilene Leon R.N. Authorized by: Silver Arias M.D. ?? PROCEDURE DETAILS Ultrasound image guidance used to localize target, identify at risk structures, and dynamically used to direct therapy to the target. Image(s) not saved. Filled bladder with 350 ml. Patient attempted to void,unfortuantely his stream was irregular causing uroflow to be unmeasurable. Post void bladder scan showed 249ml. CONSENT Consent obtained: verbal Consent given by: patient SEDATION / ANESTHESIA Anesthesia method: none POST-PROCEDURE DETAILS ?? Complications: no apparent complications Lemus catheter will be replaced due to failed void trail. 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 [address] [place] [phone] PCP - GeneralFandly Zwsuojxr50/24/25documented as of this encounter
--- OUTSIDE RECORDS SUMMARY | 2025-05-11 16:00 | XMS_ITS | Encounter Summary ---
Author Organization [facility] Address [address] [place] [address] Care Team Providers Care Vocal Performer Name Role Phone Ye Stafford M.D. Primary Care Provider [phone] Reason for Referral * Outpatient (Routine) - ClosedSpecialtyDiagnoses / ProceduresReferred By ContactReferred To Contact Diagnoses Edema Lower Extremity Procedures US Lower Extremity Veins Bilateral Celestino Esposito P.A.-C., M.S. 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 [address] [place] [address] Phone: tel: fax: [facility] Region Referral IDStatusReasonStart DateExpiration DateVisits RequestedVisits [id number]/4/20253/6/[id number] Encounter Details DateTypeDepartmentCare Team (Latest Contact Info)Qxwkyfrczeq68/04/2025 4:00 PM HIGH SPEED PRINTER OPERATOR - 05/11/2025 4:51 PM CSTHospital Encounter Department of Radiology in [place], [place] [address] [address] Celestino Esposito P.A.-C., M.S. [address] [address] Edema Lower Extremity Discharge Disposition: Home or Self Care Social [...] InformationValueDate RecordedSex Assigned at BirthNot on fileLegal KogXlvz7007/10/2016 3:38 AM CSTGender IdentityNot on fileSexual OrientationNot on filedocumented as of this encounter Medications at Time of Discharge MedicationSigDispense QuantityRefillsLast FilledStart DateEnd Date acetaminophen (TylenoL) 500 mg tablet Take 2 tablets (1,000 mg total) by mouth every 6 (six) hours as needed for pain. 30 tablet 10:58 PM CDT1 amLODIPine (Norvasc) 5 mg tablet Take 5 mg by mouth daily. for blood swjnrxbe55/20/2025 apixaban (Eliquis) 5 mg tablet Take 1 [...] associated with catheterization). 1 applicator 10:57 PM CDT1 lisinopriL 40 mg tablet [...] Plan of Treatment DateTypeDepartmentCare Team (Latest Contact Info)Exeflkbxryn10/30/2025 11:30 AM CSTProcedure visit Department of Urology in [place], [place] [address] [place] [phone] Silver Arias M.D. [address] [place] [phone] 06/09/2025 12:30 PM CSTAppointment Department of Laboratory Medicine in [address] [phone] Silver Arias M.D. [address] [place] [phone] 06/09/2025 1:30 PM CSTAppointment Department of Radiology in [place], [place] [address] [place] [phone] Silver Arias M.D. [address] [place] [phone] 07/12/2025 12:30 PM CSTProcedure visit Department of Urology in [address] [phone] Marvin Dumas M.D. [address] [place] [phone] Discharge Disposition: Home or Self Care07/12/2025 1:15 PM CSTOffice Visit Department of Urology in [address] [phone] Marvin Dumas M.D. [address] [place] [phone] Discharge Disposition: Home or Self Caredocumented as of this encounter Procedures Procedure NamePriorityDate/TimeAssociated DiagnosisCommentsUS LOWER EXTREMITY VEINS BILATERALRAD - Routine (most inpatients and all outpatients)05/11/2025 5:00 PM HIGH SPEED PRINTER OPERATOR Edema Lower Extremity documented in this encounter Results * US Lower Extremity Veins Bilateral (05/11/2025 5:00 PM HIGH SPEED PRINTER OPERATOR)Anatomical Region LateralityModalityLower Extremity, Ultrasound RST LOS, Ultrasound ARZ LOS, Ultrasound FLA LOSBilateralUltrasoundSpecimen (Source)Anatomical Location / LateralityCollection Method / VolumeCollection TimeReceived Time Impressions 05/11/2025 5:10 PM HIGH SPEED PRINTER OPERATOR Negative for acute DVT. 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 Diffuse soft tissue edema. Narrative 05/11/2025 5:10 PM HIGH SPEED PRINTER OPERATOR EXAM: US LOWER EXTREMITY VEINS BILATERAL Exam performed with color and spectral Doppler analysis. COMPARISON: 03/21/2025 FINDINGS: RIGHT: Common Femoral Vein: Chronic post thrombotic changes. Profunda Femoral Vein: Negative. Femoral Vein: Negative. Popliteal Vein: Negative. Gastrocnemius Veins: Negative where seen. Soleal Veins: Not Well Seen. Posterior Tibial Veins: Not Well Seen. Peroneal Veins: Not Well Seen. Great Saphenous Vein: Negative where seen. Small Saphenous Vein: Not Evaluated. Popliteal Fossa: Negative. Other: Diffuse soft tissue edema. LEFT: Common Femoral Vein: Negative. Profunda Femoral Vein: Negative. Femoral Vein: Negative. Popliteal Vein: Negative. Gastrocnemius Veins: Negative where seen. Soleal Veins: Not Well Seen. Posterior Tibial Veins: Not Well Seen. Peroneal Veins: Not Well Seen. Great Saphenous Vein: Negative where seen. Small Saphenous Vein: Not Evaluated. Popliteal Fossa: Negative. Other: Diffuse soft tissue edema. Information on venous thrombosis and management can be found on the Jenn [employer] site. Link [email or web address]/clinical-[email or web address] Procedure Note Deuce Manjarrez M.D. - 05/11/2025 EXAM: US LOWER EXTREMITY VEINS BILATERAL Exam performed with color and spectral Doppler analysis. COMPARISON: 03/21/2025 FINDINGS: RIGHT: Common Femoral Vein: Chronic post thrombotic changes. Profunda Femoral Vein: Negative. Femoral Vein: Negative. Popliteal Vein: Negative. Gastrocnemius Veins: Negative where seen. Soleal Veins: Not Well Seen. Posterior Tibial Veins: Not Well Seen. Peroneal Veins: Not Well Seen. Great Saphenous Vein: Negative where seen. Small Saphenous Vein: Not Evaluated. Popliteal Fossa: Negative. Other: Diffuse soft tissue edema. LEFT: Common Femoral Vein: Negative. Profunda Femoral Vein: Negative. Femoral Vein: Negative. Popliteal Vein: Negative. Gastrocnemius Veins: Negative where seen. Soleal Veins: Not Well Seen. Posterior Tibial Veins: Not Well Seen. Peroneal Veins: Not Well Seen. Great Saphenous Vein: Negative where seen. Small Saphenous Vein: Not Evaluated. Popliteal Fossa: Negative. Other: Diffuse soft tissue edema. Information on venous thrombosis and management can be found on theAskMayoExpert site. [email or web address]/topic/[email or web address]/[email or web address] IMPRESSION: Negative for acute DVT. 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 Diffuse soft tissue edema. Authorizing ProviderResult TypeResult StatusAndmichel Esposito P.A.-C., M.S.IMG US PROCEDURESFinal Result documented in this encounter Visit Diagnoses Diagnosis Edema Lower Extremity documented in this encounter Additional Health Concerns AssessmentNoted TimePHQ-9 Depression Total Score: 2:21 PM HIGH SPEED PRINTER OPERATOR documented as of this encounter Care Teams Team MemberRelationshipSpecialtyStart DateEnd Ye Stafford M.D. [address] [place] [phone] PCP - GeneralFamily Luxukzdt25/24/25documented as of this encounter
--- OUTSIDE RECORDS SUMMARY | 2025-05-11 16:00 | XMS_ITS | Encounter Summary ---
Author Organization [facility] Address [address] [place] [address] Care Team Providers Care Avionics Systems Repairer Name Role Phone Ye Stafford M.D. Primary Care Provider [phone] Reason for Referral * Outpatient (Routine) - ClosedSpecialtyDiagnoses / ProceduresReferred By ContactReferred To Contact Diagnoses Edema Lower Extremity Procedures US Lower Extremity Veins Bilateral Celestino Esposito P.A.-C., M.S. [address] [place] [address] Phone: tel: fax: [facility] Region Referral IDStatusReasonStart DateExpiration DateVisits RequestedVisits [id number]/4/20253/ FING OPERATIONS MANAGER Reason for Visit * ReasonCommentsLeg SwellingLeft leg and foot, 2 to 4 weeks, on and off * Appointment Request (Routine) - ClosedSpecialtyDiagnoses / ProceduresReferred By ContactReferred To ContactFamily Medicine Referral IDStatusReasonStart DateExpiration DateVisits RequestedVisits [id number]/3/20253/ Encounter Details DateTypeDepartmentCare Team (Latest Contact Info)Wxocacjbdmb82/04/2025 4:00 PM CSTOffice Visit Department of Family Medicine, [facility], in [place], [place] [address] [place] [address] Celestino Esposito P.A.-C., M.S. [address] [phone] Swelling Scrotum (Primary Dx); Edema Lower Extremity; Hypertension Essential Primary Social History Tobacco UseTypesPacks/DayYears UsedDateSmoking Tobacco: FormerSmokeless Tobacco: Never Tobacco Cessation:Counseling Given: No Hunger Vital SignAnswerDate RecordedWithin the past 12 [...] Last Filed Vital Signs Vital SignReadingTime TakenCommentsBlood Aaeqjfig256/8312 3:26 PM STAFFING OPERATIONS MANAGER Tnblc865705/11/2025 3:22 PM XALScxdbnylvgf45.2 ??C (97.1 ??F)05/11/2025 3:22 PM CSTRespiratory Eizq11307/12/2024 3:22 PM CSTOxygen Saturation--Inhaled Oxygen Concentration--Weight--Height--Body Mass Index--documented in this encounter Patient Instructions * Attachments The following attachments cannot be sent through Care Everywhere. * Exercises to Reduce Lower Extremity Swelling * Tips for Managing Your Edema documented in this encounter Progress Notes * Celestino Esposito P.A.-C., M.S. - 05/11/2025 4:00 PM CST SUBJECTIVE CHIEF COMPLAINT / REASON FOR VISIT David Velez is a 79 y.o. male who presents for evaluation of Leg Swelling (Left leg and foot, 2 to 4 weeks, on and off). HISTORY OF PRESENT ILLNESS Patient is an 79-year-old male presenting to the clinic today with concern for swelling and a possible mass in the left thigh with swelling throughout his left leg. He actually has swelling in the right leg as well with redness and warmth but this is not changed from when he stepped with since his right hip replacement. Patient is doing physical therapy for the right hip replacement. Patient shares that the physical therapy advised he rejected nurse triage in the recommended visit. Patient doeshave a history of DVT in the right lower extremity. He denies any changes to contribute to his lower extremity possibly medication adjustments. [facility] a nd started amlodipine. Lisinopril and metoprolol are still taking for his blood pressure as prescribed. His symptoms have been present in the left leg that he is concerned about for 3-5 weeks. Not painful or pruritic. No specific injury or trauma or change in footwear activities to cause this. Patient denies any sonja shortness of breath but has dyspnea on exertion which she relates to being in po or condition. He does have some numbness and tingling but this has been going on for several monthsmuch greater than the edema. The numbness and tingling on the feet and ankles bilateral. Denies anyfevers or chills. No chest pain or coughing. No change in large, thinking, vision, speech. No weakness. Denies any recent travel. Patient mentioned at the end of history taking that he was actually assess for DVT in the right lower extremity for the ultrasound shortly after surgery and was negative. Also shares concerns regarding scrotal swelling which he states has been evaluated by primary careteam in urology. The following portions of the patient's history were reviewed and updated as appropriate: allergies, current medications, family history, medical history, social history, surgical history, and problem list. REVIEW OF SYSTEMS All other systems reviewed and are negative. OBJECTIVE PHYSICAL EXAMINATION Vitals and nursing note reviewed. Constitutional General: He is not in acute distress. Appearance: Normal appearance. He is not ill-appearing. HENT Head: Normocephalic and atraumatic. Right Ear: Tympanic membrane, ear canal and external ear normal. Left Ear: Tympanic membrane, ear canal and external ear normal. Nose: Nose normal. Mouth/Throat: Mouth: Mucous membranes are moist. Pharynx: Oropharynx is clear. Eyes General: No scleral icterus. Conjunctiva/sclera: Conjunctivae normal. Cardiovascular Rate and Rhythm: Normal rate and regular rhythm. Heart sounds: Normal heart sounds. No murmur heard. No friction rub. No gallop. Comments: Edema bilateral mgzok-hpwexvq-fcjz-left and into thighs Pulmonary Effort: Pulmonary effort is normal. Breath sounds: Normal breath sounds. No wheezing, rhonchi or rales. Musculoskeletal Cervical back: Normal range of motion and neck supple. Right lower le+ Edema present. Left lower le+ Edema present. Comments: Patient has normal strength lower extremity myotomes bilateral. Lymphadenopathy Cervical: No cervical adenopathy. Skin General: Skin is warm and dry. Findings: Erythema (right lower extremity with increased warmth) present. Neurological Mental Status: He is alert. Diagnostic Recent Results (from the past 24 hours) CBC with Differential, Blood Collection Time: 05/11/25 5:06 PM Result Value Hemoglobin 10.5 (L) Hematocrit 33.7 (L) Erythrocytes 3.68 (L) MCV 91.6 RBC Distrib Width 15.1 (H) Platelet Count 184 Leukocytes 5.9 Neutrophils 3.57 Lymphocytes 1.26 Monocytes 0.66 Eosinophils 0.29 Basophils 0.07 Basic Metabolic Panel Collection Time: 05/11/25 5:06 PM Result Value Potassium, P 4.5 Sodium, P 141 Chloride, P 109 (H) Bicarbonate, P 21 (L) Anion Gap, P 11 BUN (Blood Urea Nitrogen), P 24 Creatinine 1.12 Estimated GFR (eGFR) 66 Calcium, Total, P 9.3 Glucose, P 109 NT-Pro B-Type Natriuretic Peptide (BNP) Collection Time: 05/11/25 5:07 PM Result Value NT-Pro BNP 666 (H) US Lower Extremity Veins Bilateral Result Date: 05/11/2025 Impression: Negative for acute DVT. 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 Diffuse soft tissue edema. ASSESSMENT / PLAN #1 Edema Lower Extremity #2 Swelling Scrotum #3 Hypertension Essential Primary Discussed with the patient exam findings. The right leg is more erythematous and provisioning specialist the extremity that had the hip replaced. He is not concerned about this leg as he is more concerned about the left leg swelling. He has no pain. There are no open sores. No obvious masses. He has 2+ pitting edema up into the thigh. Given the overall clinical picture and history we did obtain repeat ultrasoundof the right lower extremity but also an old assessment prior ultrasound of left lower extremity. Fortunately no evidence of a blood clot. There was diffuse edema noted which can be seen on exam. Thepatient has had some challenges with providers at the [facility] in his working to establish care locally. He was seen by his assigned primary care provider on 04/28/2025 and at that time had scrotal swelling but no lower extremity edema noted on exam. Realized after reviewing the notes that they recommended and ordered a scrotal ultrasound but did not see that have not been performed yet. The scrotal edema is likely associated with the lower extremity edema and likely benign. Labs were obtained he unfortunately despite BNP slightly elevated not consistent with heart failure given his age. Discussed with the patient the other labs are fairly unremarkable aside from his hemoglobin which is continuing to be low. Labs after his hip replacement did show low hemoglobins at the time something that could be monitored. His blood pressure is elevated in clinic and I shared with him that I would be reaching out to his primary care provider as he is working on his blood pressure and has placed orders for nurse visit blood pressure check. We will be discussing with his primary care provider thoughts about adding on diuretic. May need to further assess vascular disease. Regardless I discussed with thepatient management strategies including breathing techniques and exercises again help with the lower extremity edema. I have recommended thigh-high compression stockings and in the meantime recommendhe continue with the current compression that he has at home. If symptoms worsen or do not improve, they are to seek further medical attention. Patient's questions were answered. They voiced understanding and agree to this plan.. Celestino Esposito P.A.-C., M.S. FING OPERATIONS MANAGER documented in this encounter Plan of Treatment DateTypeDepartmentCare Team (Latest Contact Info)Kmtztctbhss07/30/2025 11:30 AM CSTProcedure visit Department of Urology in [address] [phone] Silver Arias M.D. [address] [place] [phone] 06/09/2025 12:30 PM CSTAppointment Department of Laboratory Medicine in [address] [phone] Silver Arias M.D. [address] [place] [phone] 06/09/2025 1:30 PM CSTAppointment Department of Radiology in [address] [phone] Silver Arias M.D. [address] [place] [phone] 07/12/2025 12:30 PM CSTProcedure visit Department of Urology in [address] [address] Marvin Dumas M.D. [address] [place] [phone] Discharge Disposition: Home or Self Care07/12/2025 1:15 PM CSTOffice Visit Department of Urology in [address] [address] Marvin Dumas M.D. [address] [place] [phone] Discharge Disposition: Home or Self Caredocumented as of this encounter Procedures Procedure NamePriorityDate/TimeAssociated DiagnosisCommentsNT-PRO B-TYPE NATRIURETIC PEPTIDE (BNP), XZjskbzr75/04/2025 5:07 PM STAFFING OPERATIONS MANAGER Edema Lower Extremity documented in this encounter Results * (ABNORMAL) NT-Pro B-Type Natriuretic Peptide (BNP) (05/11/2025 5:07 PM STAFFING OPERATIONS MANAGER) ComponentValueRef RangeTest MethodAnalysis TimePerformed AtPathologist SignatureNT-Pro KSO879(H)<=540 pg/mL05/11/2025 5:45 PM CSTOWATComment: NT-proBNP values less than 300 pg/mL have a 99% negative predictive value for excluding acute congestive heart failure. A cutoff of 1200 pg/mL for patients with an eGFR<60 yields a diagnostic sensitivity and specificity of 89% and 72% for acute congestive heart failure. A diagnostic NT-proBNP cutoff of 1800 pg/mL has been suggested in adults over 75 years of age in the absence of renal failure. Specimen (Source)Anatomical Location / LateralityCollection Method / Volume Collection TimeReceived TimeBlood (Blood, Venous)05/11/2025 5:07 PM STAFFING OPERATIONS MANAGER 05/11/2025 5:10 PM STAFFING OPERATIONS MANAGER Narrative Authorizing ProviderResult TypeResult StatusAndmichel Esposito P.A.-C., M.S.LAB BLOOD ADD-ONFinal ResultPerforming OrganizationAddressCity/State/ZIP CodePhone Number [facility] [address] [place] [address], [facility] in [place] [address] [place] [address] * (ABNORMAL) Basic Metabolic Panel (05/11/2025 5:06 PM STAFFING OPERATIONS MANAGER)ComponentValueRef RangeTest MethodAnalysis TimePerformed AtPathologist SignaturePotassium, P4.5 3.6 - 5.2 mmol/L107/12/2024 5:36 PM CSTOWATSodium, G491290 - 145 mmol/L 05/11/2025 5:36 PM CSTOWATChloride, P109(H)98 - 107 mmol/L107/12/2024 5:36 PM CSTOWATBicarbonate, P21(L)22 - 29 mmol/L107/12/2024 5:36 PM CSTOWATAnion Gap, P 117 - 15107/12/2024 5:36 PM CSTOWATBUN (Blood Urea Nitrogen), P248 - 24 mg/dL 05/11/2025 5:36 PM CSTOWATCreatinine1.120.74 - 1.35 mg/dL05/11/2025 5:36 PM CSTOWATEstimated GFR (eGFR)66>=60 mL/min/BSA05/11/2025 5:36 PM CSTOWATComment: Estimated GFR calculated using the 2020 CKD_EPI creatinine equation. Calcium, Total, P9.38.8 - 10.2 mg/dL05/11/2025 5:36 PM CSTOWATGlucose, Z35736 - 140 mg/dL05/11/2025 5:36 PM CSTOWATSpecimen (Source)Anatomical Location / LateralityCollection Method / VolumeCollection TimeReceived TimeBlood (Blood, Venous)05/11/2025 5:06 PM CST05/11/2025 5:10 PM STAFFING OPERATIONS MANAGER Narrative Authorizing ProviderResult TypeResult StatusCelestino Esposito P.A.-C., M.S.LAB BLOOD ADD-ONFinal ResultPerforming OrganizationAddressCity/State/ZIP CodePhone Number [facility] [address], [place] [address], [facility] in [place] [address] [place] [address] * (ABNORMAL) CBC with Differential, Blood (05/11/2025 5:06 PM STAFFING OPERATIONS MANAGER)ComponentValue Ref RangeTest MethodAnalysis TimePerformed AtPathologist SignatureHemoglobin 10.5(L)13.2 - 16.6 g/dL05/11/2025 5:13 PM RAIBDKPEzufexvmhm04.7(L)38.3 - 48.6 %05/11/2025 5:13 PM CSTOWATErythrocytes3.68(L)4.35 - 5.65 x10(12)/L107/12/2024 5:13 PM VQKEFJAJAP98.678.2 - 97.9 fL05/11/2025 5:13 PM CSTOWATRBC Distrib Width15.1(H)11.8 - 14.5 %05/11/2025 5:13 PM CSTOWATPlatelet Vrttb215687 - 317 x10(9)/L107/12/2024 5:13 PM CSTOWATLeukocytes5.93.4 - 9.6 x10(9)/05/11/2025 5:13 PM CSTOWATNeutrophils3.571.56 - 6.45 x10(9)/L107/12/2024 5:13 PM CSTOWAT Lymphocytes1.260.95 - 3.07 x10(9)/05/11/2025 5:13 PM CSTOWATMonocytes0.660.26 - 0.81 x10(9)/L107/12/2024 5:13 PM CSTOWATEosinophils0.290.03 - 0.48 x10(9)/L 05/11/2025 5:13 PM CSTOWATBasophils0.070.01 - 0.08 x10(9)/L107/12/2024 5:13 PM CSTOWATSpecimen (Source)Anatomical Location / LateralityCollection Method / VolumeCollection TimeReceived TimeBlood (Blood, Venous)05/11/2025 5:06 PM STAFFING OPERATIONS MANAGER 05/11/2025 5:10 PM STAFFING OPERATIONS MANAGER Narrative Authorizing ProviderResult TypeResult StatusCelestino Esposito P.A.-C., M.S.LAB BLOOD ADD-ONFinal ResultPerforming OrganizationAddressCity/State/ZIP CodePhone Number [facility] [address] [place] [address], [place] [facility] in [place] [address] [place] [address] * US Lower Extremity Veins Bilateral (05/11/2025 5:00 PM STAFFING OPERATIONS MANAGER)Anatomical Region LateralityModalityLower Extremity, Ultrasound RST LOS, Ultrasound ARZ LOS, Ultrasound FLA LOSBilateralUltrasoundSpecimen (Source)Anatomical Location / LateralityCollection Method / VolumeCollection TimeReceived Time Impressions 05/11/2025 5:10 PM STAFFING OPERATIONS MANAGER Negative for acute DVT. 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 Diffuse soft tissue edema. Narrative 05/11/2025 5:10 PM STAFFING OPERATIONS MANAGER EXAM: US LOWER EXTREMITY VEINS BILATERAL Exam [...] and management can be found on the [employer] site. Link [email or web address]/topic/clinical-[email or web address]/[email or web address]/cpm-[email or web address] 11828 Procedure Note Deuce Manjarrez M.D. - 05/11/2025 [...] management can be found on theAskMayoExpert site. [email or web address]/topic/[email or web address]/[email or web address]/ [email or web address] IMPRESSION: Negative for acute DVT. 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 Diffuse soft tissue edema. Authorizing ProviderResult TypeResult StatusAndmichel Esposito P.A.-C., M.S.IMG US PROCEDURESFinal Result documented in this encounter Visit Diagnoses Diagnosis Swelling Scrotum- Primary Edema Lower Extremity Hypertension Essential Primary Edema Lower Extremity documented in this encounter Additional Health Concerns AssessmentNoted TimePHQ-9 Depression Total Score: 2:21 PM STAFFING OPERATIONS MANAGER documented as of this encounter Care Teams Team MemberRelationshipSpecialtyStart DateEnd Date Ye Stafford M.D. [address] [place] [phone] PCP - GeneralFamily Ztybegsk87/24/25documented as of this encounter
--- OUTSIDE RECORDS SUMMARY | 2025-05-11 16:52 | XMS_ITS | Encounter Summary ---
Author Organization [facility] Address [address] [place] [address] Care Team Providers Care Area Development Consultant Name Role Phone Ye Stafford M.D. Primary Care Provider [phone] Reason for Visit * Appointment Request (Routine) - ClosedSpecialtyDiagnoses / ProceduresReferred By ContactReferred To ContactLaboratory Medicine Referral IDStatusReasonStart DateExpiration DateVisits RequestedVisits [id number]/4/20253/ Encounter Details DateTypeDepartmentCare Team (Latest Contact Info)Cjjyqniczkm04/04/2025 4:52 PM INDUCTION HEATING EQUIPMENT SETTER - 05/11/2025 11:59 PM CSTHospital Encounter Department of Laboratory Medicine in [place], [place] [address] [phone] Celestino Esposito P.A.-C., M.S. [address] [place] [phone] Edema Lower Extremity Discharge Disposition: Home [...] or from getting things needed for daily living?01/06/2025HC UtilitiesAnswerDate RecordedIn the past 12 months has the [employer], [employer], oil, or water company threatened to shut off services in your home?01/06/2025Housing StabilityAnswerDate Recorded What is your living situation today?I have a steady place to live01/06/2025Sex and Gender InformationValueDate RecordedSex Assigned at BirthNot on fileLegal OqyXcip8007/10/2016 3:38 AM CSTGender IdentityNot on fileSexual OrientationNot on filedocumented as of this encounter Medications at Time of Discharge MedicationSigDispense QuantityRefillsLast FilledStart DateEnd Date acetaminophen (TylenoL) 500 mg tablet Take 2 tablets (1,000 mg total) by mouth every 6 (six) hours as needed for pain. 30 tablet 10:58 PM CDT1 amLODIPine (Norvasc) 5 mg tablet Take 5 mg by mouth daily. for blood mjxzygon89/20/2025 apixaban (Eliquis) 5 mg tablet Take 1 [...] Plan of Treatment DateTypeDepartmentCare Team (Latest Contact Info)Kczazzunmev83/30/2025 11:30 AM CSTProcedure visit Department of Urology in [place], [place] [address] [place] [phone] Silver Arias M.D. [address] [place] [phone] 06/09/2025 12:30 PM CSTAppointment Department of Laboratory Medicine in [place], [place] [address] [place] [phone] Silver Arias M.D. [address] [place] [phone] 06/09/2025 1:30 PM CSTAppointment Department of Radiology in [place], [place] [address] [phone] Silver Arias M.D. [address] [place] [phone] 07/12/2025 12:30 PM CSTProcedure visit Department of Urology in [address] [phone] Marvin Dumas M.D. [address] [place] [phone] Discharge Disposition: Home or Self Care07/12/2025 1:15 PM CSTOffice Visit Department of Urology in [address] [phone] Marvin Dumas M.D. [address] [place] [phone] Discharge Disposition: Home or Self Caredocumented as of this encounter Procedures Procedure NamePriorityDate/TimeAssociated DiagnosisCommentsCBC WITH DIFFERENTIAL, XBbfvufq42/04/2025 5:06 PM INDUCTION HEATING EQUIPMENT SETTER Edema Lower Extremity BASIC METABOLIC PANEL, S/UPsschmz55/04/2025 5:06 PM INDUCTION HEATING EQUIPMENT SETTER Edema Lower Extremity documented in this encounter Results * (ABNORMAL) Basic Metabolic Panel (05/11/2025 5:06 PM INDUCTION HEATING EQUIPMENT SETTER)ComponentValueRef RangeTest MethodAnalysis TimePerformed AtPathologist SignaturePotassium, P4.5 3.6 - 5.2 mmol/L107/12/2024 5:36 PM CSTOWATSodium, N011341 - 145 mmol/L 05/11/2025 5:36 PM CSTOWATChloride, [...] P9.38.8 - 10.2 mg/dL05/11/2025 5:36 PM CSTOWATGlucose, E12162 - 140 mg/dL05/11/2025 5:36 PM CSTOWATSpecimen (Source)Anatomical Location / LateralityCollection Method / VolumeCollection TimeReceived TimeBlood (Blood, Venous)05/11/2025 5:06 PM CST05/11/2025 5:10 PM INDUCTION HEATING EQUIPMENT SETTER Narrative Authorizing ProviderResult TypeResult StatusCelestino Esposito P.A.-C., M.S.LAB BLOOD ADD-ONFinal ResultPerforming OrganizationAddressCity/State/ZIP CodePhone Number [facility] [address] [place] [address], [facility] [place] [address] [place] [address] * (ABNORMAL) CBC with Differential, Blood (05/11/2025 5:06 PM INDUCTION HEATING EQUIPMENT SETTER)ComponentValue Ref RangeTest MethodAnalysis TimePerformed AtPathologist SignatureHemoglobin 10.5(L)13.2 - 16.6 g/dL05/11/2025 5:13 PM JRDAVJBNtwftyrbsr31.7(L)38.3 - 48.6 %05/11/2025 5:13 PM CSTOWATErythrocytes3.68(L)4.35 - 5.65 x10(12)/L107/12/2024 5:13 PM RBYIMRIXBY15.678.2 - 97.9 fL05/11/2025 5:13 PM CSTOWATRBC Distrib Width15.1(H)11.8 - 14.5 %05/11/2025 5:13 PM CSTOWATPlatelet Sixko599822 - 317 x10(9)/L107/12/2024 5:13 PM CSTOWATLeukocytes5.93.4 - 9.6 x10(9)/L107/12/2024 5:13 PM CSTOWATNeutrophils3.571.56 - 6.45 x10(9)/L107/12/2024 5:13 PM CSTOWAT Lymphocytes1.260.95 - 3.07 x10(9)/L107/12/2024 5:13 PM CSTOWATMonocytes0.660.26 - 0.81 x10(9)/L107/12/2024 5:13 PM CSTOWATEosinophils0.290.03 - 0.48 x10(9)/L 05/11/2025 5:13 PM CSTOWATBasophils0.070.01 - 0.08 x10(9)/L107/12/2024 5:13 PM CSTOWATSpecimen (Source)Anatomical Location / LateralityCollection Method / VolumeCollection TimeReceived TimeBlood (Blood, Venous)05/11/2025 5:06 PM INDUCTION HEATING EQUIPMENT SETTER 05/11/2025 5:10 PM INDUCTION HEATING EQUIPMENT SETTER Narrative Authorizing ProviderResult TypeResult StatusAndmichel Esposito P.A.-C., M.S.LAB BLOOD ADD-ONFinal ResultPerforming OrganizationAddressCity/State/ZIP CodePhone Number [facility] [address] [place] [address], [facility] [place] [address] [place] [phone] documented in this encounter Visit Diagnoses Diagnosis Edema Lower Extremity documented in this encounter Additional Health Concerns AssessmentNoted TimePHQ-9 Depression Total Score: 2:21 PM INDUCTION HEATING EQUIPMENT SETTER documented as of this encounter Care Teams Team MemberRelationshipSpecialtyStart DateEnd Date Ye Stafford M.D. [address] [place] [phone] PCP - GeneralFamily Jzqkisjp65/24/25documented as of this encounter
--- OUTSIDE RECORDS SUMMARY | 2025-06-03 06:59 | XMS_ITS | Encounter Summary ---
Author Organization [facility] Address [address] [place] [address] Care Team Providers Care Rail Car Driver Name Role Phone Ye Stafford M.D. Primary Care Provider [phone] Reason for Referral * Outpatient (Routine) - AuthorizedSpecialtyDiagnoses / ProceduresReferred By ContactReferred To ContactFamily Medicine Diagnoses Hypertension Essential Primary Celestino Esposito P.A.-C., M.S. [address] [place] [address] Phone: tel: fax: [facility] Region Referral IDStatusReasonStart DateExpiration DateVisits RequestedVisits [id number]/16/20256/ NG SPECULATOR Encounter Details DateTypeDepartmentCare Team (Latest Contact Info)Vfcpbpqpoys58/16/2025Orders Only Department of Family Medicine, [facility], in [place], [place] [address] [place] [address] Celestino Esposito P.A.-C., M.S. [address] [place] [address] Hypertension Essential Primary (Primary Dx) Social History Tobacco UseTypesPacks/DayYears UsedDateSmoking [...] InformationValueDate RecordedSex Assigned at BirthNot on fileLegal DkiUcul5707/10/2016 3:38 AM CSTGender IdentityNot on fileSexual OrientationNot on filedocumented as of this encounter Plan of Treatment DateTypeDepartmentCare Team (Latest Contact Info)Zuaxkyxnvfb57/30/2025 11:30 AM CSTProcedure visit Department of Urology in [place], [place] [address] [address] Silver Arias M.D. [address] [place] [phone] 06/09/2025 12:30 PM CSTAppointment Department of Laboratory Medicine in [place], [place] [address] [phone] Silver Arias M.D. [address] [place] [phone] 06/09/2025 1:30 PM CSTAppointment Department of Radiology in [place], [place] [address] [place] [address] Silver Arias M.D. [address] [place] [phone] 07/12/2025 12:30 PM CSTProcedure visit Department of Urology in [address] [address] Marvin Dumas M.D. [address] [place] [phone] Discharge Disposition: Home or Self Care07/12/2025 1:15 PM CSTOffice Visit Department of Urology in [address] [address] Marvin Dumas M.D. [address] [place] [phone] Discharge Disposition: Home or Self CareNameTypePriorityAssociated Diagnoses Order ScheduleFamily Medicine - General (clinic)Outpatient ReferralRoutine Hypertension Essential Primary Expected: 06/06/2025, Expires: 08/21/2026documented as of this encounter Visit Diagnoses Diagnosis Hypertension Essential Primary- Primary documented in this encounter Additional Health Concerns AssessmentNoted TimePHQ-9 Depression Total Score: 2:21 PM MINING SPECULATOR documented as of this encounter Care Teams Team MemberRelationshipSpecialtyStart DateEnd Date Ye Stafford M.D. [address], [place] [address] PCP - GeneralFamily Bopeqrlb39/24/25documented as of this encounter
--- OUTSIDE RECORDS SUMMARY | 2025-06-03 06:59 | XMS_ITS | Encounter Summary ---
Author Organization [facility] Address [address] [place] [address] Care Team Providers Care Pest Control Worker Helper Name Role Phone Ye Stafford M.D. Primary Care Provider [phone] Reason for Visit * ReasonOnset DateCommentsPandaDoc Form05/16/2025dara Order [id number] Encounter Details DateTypeDepartmentCare Team (Latest Contact Info)Rpvvbfrjygd59/09/2025linical Communication Department of Family Medicine, [facility], in [place], [place] [address], [place] [address] Ye Stafford M.D. [address] [place] [address] PandaDoc Form ([facility] Order [id number]) Social History Tobacco UseTypesPacks/DayYears UsedDateSmoking Tobacco: FormerSmokeless [...] InformationValueDate RecordedSex Assigned at BirthNot on fileLegal XppYqzc7407/10/2016 3:38 AM CSTGender IdentityNot on fileSexual OrientationNot on filedocumented as of this encounter Miscellaneous Notes * Telephone Encounter - Brigette Piedra - 05/23/2025 6:39 AM CST Form faxed back to facility. Copy sent to [facility] for scanning. H FREEZER * Telephone Encounter - Brigette Piedra - 05/16/2025 10:05 AM CST Form was routed to Dr. Stafford for electronic review/signature. ACADEMIC HOSPITALIST: [facility] PHONE NUMBER: [phone] INFO REQUESTED: Order [id number] INSTRUCTIONS: Fax information to [phone] H FREEZER documented in this encounter Plan of Treatment DateTypeDepartmentCare Team (Latest Contact Info)Nsfxzfksveg42/30/2025 11:30 AM CSTProcedure visit Department of Urology in [place], [place] [address] [phone] Silver Arias M.D. [address] [place] [phone] 06/09/2025 12:30 PM CSTAppointment Department of Laboratory Medicine in [place], [place] [address] [place] [phone] Silver Arias M.D. [address] [place] [phone] 06/09/2025 1:30 PM CSTAppointment Department of Radiology in [place], [place] [address] [place] [phone] Silver Arias M.D. [facility] [place] [address] 07/12/2025 12:30 PM CSTProcedure visit Department of Urology in [address] [address] Marvin Dumas M.D. [address] [place] [phone] Discharge Disposition: Home or Self Care07/12/2025 1:15 PM CSTOffice Visit Department of Urology in [address] [phone] Marvin Dumas M.D. [address] [place] [phone] Discharge Disposition: Home or Self Caredocumented as of this encounter Visit Diagnoses Not on filedocumented in this encounter Additional Health Concerns AssessmentNoted TimePHQ-9 Depression Total Score: 2:21 PM BATCH FREEZER documented as of this encounter Care Teams Team MemberRelationshipSpecialtyStart DateEnd Date Ye Stafford M.D. [address], [place] [phone] PCP - GeneralFamily Qwozbtgu19/24/25documented as of this encounter
--- OUTSIDE RECORDS SUMMARY | 2025-06-03 06:59 | XMS_ITS | Encounter Summary ---
Author Organization [facility] Address [address] [place] [address] Care Team Providers Care Habitat Conservation Planner Name Role Phone Ye Stafford M.D. Primary Care Provider [phone] Reason for Visit * ReasonOnset DateCommentsPandaDoc Form06/02/2025dara (order [id number]) Encounter Details DateTypeDepartmentCare Team (Latest Contact Info)Lzqlfoiatxs28/26/2025linical Communication Department of Family Medicine, [facility], in [place], [place] [address] [place] [address] Ye Stafford M.D. [address] [place] [address] PandaDoc Form ( [facility] (order [id number])) Social History Tobacco UseTypesPacks/DayYears UsedDateSmoking Tobacco: FormerSmokeless [...] InformationValueDate RecordedSex Assigned at BirthNot on fileLegal PxiGqdr0607/10/2016 3:38 AM CSTGender IdentityNot on fileSexual OrientationNot on filedocumented as of this encounter Miscellaneous Notes * Telephone Encounter - Devi Carcamo - 06/02/2025 5:42 PM CST Completed form sent to [facility] to place in chart Action by [facility] Forms Completion Team: [x] Faxed [] Returned to desk for patient excelsior picker, no auth on file [] Returned to patient via portal [] Mailed to home address [] Encrypted email to: [[facility]]_ [] ICAL WRITER * Telephone Encounter - Devi Carcamo - 06/02/2025 4:08 PM CST A PandaDoc Form has been sent to Ye Stafford M.D. Form Name: [id number] David Velez ( [facility] (order [id number])) Ye Stafford M.D. vjg Valid Authorization: N/A Release: [x] Fax to: [email or web address] [] Return to desk for patient excelsior picker, no auth on file [] Return to patient via portal [] Mail to home address [] Encrypted email to: [] Please allow 5 -10 business days for form completion. ICAL WRITER documented in this encounter Plan of Treatment DateTypeDepartmentCare Team (Latest Contact Info)Jhkvwmxrala81/30/2025 11:30 AM CSTProcedure visit Department of Urology in [place], [place] [address] [place] [address] Silver Arias M.D. [address] [place] [phone] 06/09/2025 12:30 PM CSTAppointment Department of Laboratory Medicine in [place], [place] [address] [phone] Silver Arias M.D. [address] [place] [phone] 06/09/2025 1:30 PM CSTAppointment Department of Radiology in [place], [place] [address] [phone] Silver Arias M.D. [address] [place] [phone] 07/12/2025 12:30 PM CSTProcedure visit Department of Urology in [address] [phone] Marvin Dumas M.D. [address] [place] [phone] Discharge Disposition: Home or Self Care07/12/2025 1:15 PM CSTOffice Visit Department of Urology in [address] [address] Marvin Dumas M.D. [address] [place] [phone] Discharge Disposition: Home or Self Caredocumented as of this encounter Visit Diagnoses Not on filedocumented in this encounter Additional Health Concerns AssessmentNoted TimePHQ-9 Depression Total Score: 2:21 PM CLINICAL WRITER documented as of this encounter Care Teams Team MemberRelationshipSpecialtyStart DateEnd Date Ye Stafford M.D. [address] [place] [phone] PCP - GeneralFamily Jfheleuc41/24/25documented as of this encounter
--- OUTSIDE RECORDS SUMMARY | 2025-06-03 06:59 | XMS_ITS | Clinical Summary ---
Author Organization [facility] Address [address] [place] [id number] Care Team Providers Care Patient Access Specialist Name Role Phone Pcp, No Primary Care Provider Unavailabl e Allergies No known active allergies Medications MedicationSigDispense QuantityRefillsLast FilledStart DateEnd DateStatus apixaban (ELIQUIS) 5 mg tablet Take 5 mg by mouth two times daily.05/25/2023ctive atorvastatin (LIPITOR) 40 mg tablet Take 40 mg by mouth at bedtime.08/20/2022ctive finasteride (PROSCAR) 5 mg tablet Take 5 mg by mouth once daily in the morning.07/03/2023ctive metoprolol succinate (TOPROL XL) 25 mg Sustained-Release tablet Take 25 mg by mouth once daily.12/10/2022ctive tamsulosin (FLOMAX) 0.4 mg capsule Take 0.4 mg by mouth once daily in the evening.11/11/2022ctive lisinopriL (PRINIVIL; ZESTRIL) 40 mg tablet Take 40 mg by mouth once daily in the evening.Active aspirin (ECOTRIN) 81 mg enteric coated tablet Take 81 mg by mouth once daily in the evening.Active amLODIPine (Norvasc) 5 mg tablet Take 5 mg by mouth once daily.Active cholecalciferol (VITAMIN D3) 1,000 unit capsule Take 1,000 units by mouth once daily.Active acetaminophen (TYLENOL EXTRA STRGTH) 500 mg tablet Indications:Status post total hip replacement, rightTake 2 Tablets (1,000 mg) by mouth every 6 hours. Max acetaminophen dose: 4000mg in 24 hrs. 130 Tablet 5Active bisacodyL (DULCOLAX) 5 mg delayed release tablet Indications:Constipation, unspecified constipation typeTake 2 Tablets (10 mg) by mouth once daily if needed for Constipation. 10 Tablet 5Active bisacodyL (DULCOLAX) 10 mg suppository Indications:Constipation, unspecified constipation typeInsert 1 Suppository (10 mg) rectally once daily if needed for Constipation. 5 Suppository 5Active oxyCODONE (ROXICODONE) 5 mg immediate release tablet Indications:Status post total hip replacement, rightTake 1 Tablet (5 mg) by mouth every 4 hours if needed for Pain (For moderate to severe pain and anti cipation of activity. Hold if sedated.). 15 Tablet 5Active sennosides-docusate (SENOKOT S) (8.6-50 mg) tablet Indications:Constipation, unspecified constipation typeTake 3 Tablets by mouth two times daily. 90 Tablet 5Active polyethylene glycol (MIRALAX; GLYCOLAX) 17 g per packet packet Indications:Constipation, unspecified constipation typeMix 17 g (1 Packet) in liquid then take by mouth once daily if needed for Constipation. 10 Each 5Active Active Problems ProblemNoted DateDiagnosed DatePostoperative urinary skzozknbc24/11/2025Status post total hip replacement, right03/16/2025Primary localized osteoarthritis of left knee12/28/2023llergic onvsdrdi22/17/3061Likxqobm50/17/2021onstipation 12/22/2020iaphragmatic zewyto9512/22/2020Gastroesophageal reflux disease 12/22/2020Gout12/22/2020Hypertrophy of prostate with urinary obstruction and other lower urinary tract symptoms (LUTS)12/22/20207473Fcljwxu95/17/2021Obstructive sleep apnea oyubpkme21/17/6747Qwntnllbugckqx20/17/2021 Overview (12/22/2020): Aug 30, 2012 Entered By: VALERY BRITO Comment: S/P left total hip in 2005. Other and unspecified efqjagboljjavs15/17/2021Thrombosed external hemorrhoids 12/22/20201804Uskfupqjasbn07/02/2010 Overview (12/22/2020): HTN [Hypertension] Encounters DateTypeDepartmentCare HgkwUcobeevydgj13/23/2025 3:45 PM CDT - 03/30/2025 4:29 PM CDTEmergency [address] [address] Cedrick August PA Irritation of urethral meatus (Primary Dx) Discharge Disposition: Health Care Facility Not On List03/30/2025Travel 03/21/20250350Hzzkka31/09/2025 11:26 AM CDTAnesthesia Event [address] [address] Gerry Nascimento, 03/16/2025 11:07 AM CDT - 03/16/2025 1:35 PM CDTSurgery [address] [address] Marvin Ward MD ARTHROPLASTY HIP-RIGHT03/16/2025 9:03 AM CDT - 03/21/2025 2:56 PM CDTHospital Encounter [address] [address] Marvin Ward MD Torgersen, Michelle Denise, SLITTING MACHINE OPERATOR HELPER Blanca Burt, SLITTING MACHINE OPERATOR HELPER Hospitalist, [facility] Tiki Arriola MBBS Status post total hip replacement, right (Primary Dx); Constipation, unspecified constipation type Discharge Disposition: [facility] Rwamarqm14/09/2025Travelfrom Last 3 Months Immunizations ImmunizationAdministration DatesNext DueInfluenza, Inactivated IIV3 (Age 65+ Years) Preserv Free03/18/2025 Social History Tobacco UseTypesPacks/DayYears UsedDateSmoking Tobacco: FormerCigarettes0.84 Quit: 1970 Tobacco Cessation:Counseling Given: Not Answered Alcohol UseStandard Drinks/WeekCommentsYes0 (1 standard drink = 0.6 oz pure alcohol)wine occasionallySocial ConnectionsAnswerDate RecordedDo you often feel lonely or isolated from those around you?Financial Resource Strain AnswerDate RecordedDifficulty of Paying Living Uyuqwswz826/09/2025Difficulty of Paying Living ExpensesNot on file03/16/2025Food InsecurityAnswerDate RecordedDo you worry your food will run out before you are able to buy more? Transportation NeedsAnswerDate RecordedDoes lack of transportation keep you from medical appointments?Does lack of transportation keep you from work, meetings or getting things that you need?Housing StabilityAnswerDate RecordedWhat is your housing situation today?Interpersonal Safety AnswerDate RecordedAre you being hit, kicked, pushed or yelled at (see row info)?No03/30/2025Interpersonal Safety Abuse 12 - 18Not on file03/30/2025 Interpersonal Safety Ambulatory VulnerabilityNot on file03/30/2025Utilities AnswerDate RecordedDo you have trouble paying for utilities (for example, heat, electricity, water, phone)?Sex and Gender InformationValueDate RecordedSex Assigned at BirthNot on fileLegal RijAgdq2006/21/2012 7:01 AM CATERING DIRECTOR Gender IdentityNot on fileSexual OrientationNot on file Last Filed Vital Signs Vital SignReadingTime TakenCommentsBlood Zatelikd205/7603/30/2025 3:42 PM CDT Feinn006503/30/2025 3:42 PM LRHEwaijzabznn28.7 ??C (98.1 ??F)03/30/2025 3:42 PM CDTRespiratory Offn7899 3:42 PM CDTOxygen Ovnwgrtwuf68%03/30/2025 3:42 PM CDTInhaled Oxygen Concentration--Rxlvmx798.1 kg (245 lb)03/30/2025 4:09 PM GPSIpwoth694.9 cm (6')03/30/2025 4:09 PM CDTBody Mass Index33.231 4:09 PM CDT Plan of Treatment DateTypeDepartmentCare Team (Latest Contact Info)Qogoejhrwuy71/02/2026 1:30 PM CSTAppointment [facility] [address] [place] [address] Health MaintenanceDue DateLast DoneCommentsTetanus zgcyohz5408/31/1954Depression screening for age 12+1955MI (ht and wt on same day) for age 18+08/31/1961 Pneumococcal series for age 50+ (1 of 2 - PCV)08/31/1962Zoster (shingles) series for age 50+ (1 of 2)08/31/1993RSV vaccine for adults or (1 - 1-dose 75+ series)08/31/2018COVID-19 vaccine series ()02/06/2025 03/15/2024, 03/13/2023, 06/13/2022, Additional history existsInfluenza Vaccine Rrxtoetse04/11/2025Hepatitis B series for 19+Aged OutNo longer eligible based on patient's age to complete this topic Medical Devices ImplantedTypeAreaManufacturerDevice IdentifierShelf Expiration DateModel / Serial / LotInsert Tib Sz 6 10mm Knee X3 Condylar Stabilizing Triathlon - [id number] Implanted:Qty: 1 on 12/31/2023 [facility] Tditpwwxgljb10/28/62178577-T-230-N / / [id number] Lt 5 Triathlon Beaded W/Pa - [id number] Implanted:Qty: 1 on 12/31/2023 [facility] Grbstwmpjnws03/02/81373110-S-766 / / [id number] Tib Univ Sz 6 Triathlon Keeled Ingrowth Pors Tritan - [id number] Implanted:Qty: 1 on 12/31/2023 by Juventino Downey MD at [facility]: [facility]St[facility] Hgzyptyodjhm96/10/80267934-C-711 / / [id number] S39x11 Triathlon Tritanium Symmetrical Metal Backed - [id number] Implanted:Qty: 1 on 12/31/2023 by [facility]: [place] 6271806/27/42251534-R-308 / / [id number] Hip Sz 8 127 Deg Accolade Ii - [id number] Implanted:Qty: 1 on 03/16/2025 by Marvin Ward MD at [facility] Right: [place] [id number] / / [id number] Hip Od32mm +0 Biolox Delta C-Taper Alumina Cer - [id number] Implanted:Qty: 1 on 03/16/2025 by Marvin Ward MD at [facility] Right: [facility]08/11/202982072453-0-273 / / [id number] Hip 50d Trident Ii Clusterhole Tritanium - [id number] Implanted:Qty: 1 on 03/16/2025 by Marvin Ward MD at [facility] Right: [facility]08/31/20294237980-33-74U / / [id number] Hip 6.5x30mm Caroline Low Profile Hex - [id number] Implanted:Qty: 1 on 03/16/2025 by Marvin Ward MD at [facility] Right: [facility]07/47260648-9773 / / MYEDInsert Sz D 32mm 0 Deg Trident X3 - [id number] Implanted:Qty: 1 on 03/16/2025 by Marvin Ward MD at [facility] Right: [facility]10/12/20295322787-02-55I / / [id number]iy IdentifierShelf Expiration DateModel / Serial / LotPin Bone Fix 3.6zbp423vs - [id number] Explanted:Qty: 1 on 12/31/2023 by [id number] / / [id number] Bone Fix 3.1phm513yq [facility] - [id number] Explanted:Qty: 1 on 12/31/2023 by [facility]: KneeStryker Mhosncmumjd22/14/0764568825 / / [id number] Procedures Procedure NamePriorityDate/TimeAssociated DiagnosisCommentsUS VENOUS LOWER EXTREMITY MCGPEHTFS62/14/2025 1:11 PM CDT CBC WITH AUTO ULVGGGRJIYRIYGHS77/14/2025 12:22 PM CDT LACTATE HJYYYPInrmp41/14/2025 12:22 PM CDT QQVBXWBGAACGGLdbly68/14/2025 12:22 PM CDT C-REACTIVE OFJWRLVKmrhp85/14/2025 12:22 PM CDT D-DIMER,JDNHXQVUABDBMFNZ15/14/2025 12:22 PM CDT COMP METABOLIC ICUEVYQHI74/14/2025 12:22 PM CDT CBC WITH AUTO XEWELQUQSATFBWKD45/14/2025 12:22 PM CDT HEMOGLOBINEarly AM03/20/2025 5:27 AM CDT C-REACTIVE PROTEINEarly AM03/20/2025 5:27 AM CDT WHITE BLOOD COUNTEarly AM03/20/2025 5:27 AM CDT CREATININEEarly AM03/20/2025 5:27 AM CDT POTASSIUMEarly AM03/20/2025 5:27 AM CDT SODIUMEarly AM03/20/2025 5:27 AM CDT MAGNESIUMEarly AM03/20/2025 5:27 AM CDT URINE QEOKTOYFLQN73/12/2025 8:53 AM CDT URINALYSIS OAMOJIRLDHYAgbyd99/12/2025 8:53 AM CDT UA W/ SEDIMENT EXAM REFLEXED PER MHLMGYYVIuyiz62/12/2025 8:53 AM CDT HEMOGLOBINEarly AM03/19/2025 5:40 AM CDT COMP METABOLIC PANELEarly AM03/19/2025 5:39 AM CDT GLUCOSE PUEVTDhtcbtc13/11/2025 11:35 AM CDT GLUCOSE OIERYIacyafh67/11/2025 7:56 AM CDT HEMOGLOBINEarly AM03/18/2025 5:24 AM CDT HEMOGLOBINEarly AM03/17/2025 5:10 AM CDT XR HIP 2 OR 3 VIEWS W PELVIS RIGHT BYLQRXHMBPGW57/09/2025 2:19 PM CDT GLUCOSE UQLIHHuhwchj92/09/2025 1:55 PM CDT SPINAL ECLMWXrpmytc72/09/2025 1:15 PM CDT ARTHROPLASTY HIPTier 4: > 90 days03/16/2025 11:26 AM CDT 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 03/09 Special Needs [id number] from Last 3 Months Results * US VENOUS LOWER EXTREMITY RIGHT (03/21/2025 1:11 PM CDT)Anatomical Region LateralityModalityLEGS, LEG R, AbdomenUltrasoundSpecimen (Source)Anatomical Location / LateralityCollection Method / VolumeCollection TimeReceived Time Narrative Authorizing ProviderResult TypeResult StatusSamantha Helen Jezeski NPUSFinal Result * (ABNORMAL) CBC WITH AUTO DIFFERENTIAL (03/21/2025 12:22 PM [facility])ComponentValue Ref RangeTest MethodAnalysis TimePerformed AtPathologist SignatureWHITE BLOOD COUNT5.94.5 - 11.0 thou/cu mm03/21/2025 12:31 PM [facility] BLOOD COUNT3.90(L)4.30 - 5.90 mil/cu mm03/21/2025 12:31 PM [facility] GSQRDHVQGW92.8(L)13.5 - 17.5 g/dL03/21/2025 12:31 PM [facility] EWJCVACDFW86.237.0 - 53.0 %03/21/2025 12:31 PM [facility]OMEMCV9580 - 100 fL03/21/2025 12:31 PM [facility]OMEMCH30.326.0 - 34.0 pg03/21/2025 12:31 PM [facility]OMEMCHC31.7(L)32.0 - 36.0 g/dL03/21/2025 12:31 PM [facility] HOMERDW13.711.5 - 15.5 %03/21/2025 12:31 PM [facility] HOMEPLATELET SMUMM295671 - 440 thou/cu mm03/21/2025 12:31 PM [facility]OMEMPV9.96.5 - 11.0 fL03/21/2025 12:31 PM [facility]% NEUT58.7% 03/21/2025 12:31 PM [facility]% LYMPH23.6%03/21/2025 12:[address] [facility]% MONO13.3%03/21/2025 12:31 PM [facility]% EOS4.2% 03/21/2025 12:31 PM [facility]% BASO0.2%03/21/2025 12:[address] [facility]SOLUTE NEUTROPHILS3.51.7 - 7.0 thou/cu mm03/21/2025 12:31 PM [facility] HOMEABSOLUTE LYMPHOCYTES1.40.9 - 2.9 thou/cu mm03/21/2025 12:31 PM [facility]AB[facility] MONOCYTES0.8<0.9 thou/cu mm03/21/2025 12:31 PM [facility] HOMEABSOLUTE EOSINOPHILS0.3<0.5 thou/cu mm03/21/2025 12:31 PM [facility] HOMEABSOLUTE BASOPHILS0.0<0.3 thou/cu mm03/21/2025 12:31 PM [facility] (Source)Anatomical Location / Laterality Collection Method / VolumeCollection TimeReceived TimeBloodBLOOD SPECIMEN / UnknownVenipuncture / Lapzgeb6703/21/2025 12:22 PM CDT1 12:27 PM CDT Narrative Authorizing ProviderResult TypeResult StatusBlanca Burt SLITTING MACHINE OPERATOR HELPER HEMATOLOGYFinal ResultPerforming OrganizationAddressCity/State/ZIP CodePhone Number [address] [phone] * LACTATE VENOUS (03/21/2025 12:22 PM CDT)ComponentValueRef RangeTest Method Analysis TimePerformed AtPathologist SignatureLACTATE,VENOUS1.40.5 - 2.0 mmol/L1 12:48 PM [facility] (Source)Anatomical Location / LateralityCollection Method / VolumeCollection TimeReceived Time BloodBLOOD SPECIMEN / UnknownVenipuncture / Jdfcwwu9303/21/2025 12:22 PM CDT 03/21/2025 12:27 PM CDT Narrative Authorizing ProviderResult TypeResult StatusBlanca Burt NPCHEMISTRY Final ResultPerforming OrganizationAddressty/[facility] CodePhone Number [address] [phone] * PROCALCITONIN (03/21/2025 12:22 PM CDT)ComponentValueRef RangeTest Method Analysis TimePerformed AtPathologist SignaturePROCALCITONIN0.14ng/ml03/21/2025 1:01 PM CDTOWATONNA HOSPITALSpecimen (Source)Anatomical Location / Laterality Collection Method / VolumeCollection TimeReceived TimeBloodBLOOD SPECIMEN / UnknownVenipuncture / Vhghljw1203/21/2025 12:22 PM CDT1 12:[address] [facility] - 03/21/2025 1:01 PM CDT Procalcitonin for initial assessment of Lower Respiratory Tract Infection: Results Interpretation <0.10 ng/mL Antibiotic therapy strongly discoraged. Indicates absent of bacterial infection. * 0.10 - 0.25 ng/mL Antibiotic therapy discouraged. ??Bacterial infection unlikely. * 0.26 - 0.50 ng/mL Antibiotic therapy encouraged. ??Bacterial infection possible. >0.50 ng/mL Antibiotic therapy strongly encouraged. Suggestive of presence of bacterial infection. *Antibiotic therapy should be considered regardless of PCT result if the patient is clinically unstable, is at high risk for adverse outcome, has strong evidence of bacterial pathogen, or the clinical context indicates antibiotic therapy is warranted. ??If antibiotics are withheld, reassess if symptoms persist/worsen and/or repeat PCT measurement within 6-24 hours. ? In order to assess treatment success and to support a decision to discontinue antibiotic therapy,follow up samples should be tested once every 1-2 days, based upon physician discretion taking intoaccount patient's evolution and progress. Procalcitonin for initial assessment of severe sepsis risk: Results Interpretation <0.5 ng/ml A PCT level below 0.5 ng/ml on the first day of ICU admission is associated with a low risk for progression to severe sepsis and/or septic shock. > 2.0 ng/mL A PCT level above 2.0 ng/mL on the first day of ICU admission is associated with a high risk for progression to severe sepsis and/or septic shock. Note: Concentrations < 0.5 ng/mL do not exclude an infection, on account of localized infections(without systemic signs) which can be associated with such low concentrations, or a systemic infection in its initial stages(< 6 hours). Furthermore, increased procalcitonin can occur without infection. PCT concentrations between 0.5 and 2.0 ng/mL should be interpreted taking into account the patient's history. It is recommended to retest PCT within 6-24 hours if any concentrations < 2 ng/mL are obtained. Authorizing ProviderResult TypeResult Statusju Burt NPSEND OUTS Final ResultPerforming OrganizationAddJefferson Health/[facility] CodePhone Number [address] [phone] * (ABNORMAL) C-REACTIVE PROTEIN (03/21/2025 12:22 PM CDT) Only the most recent of2 resultswithin the time period is included. ComponentValueRef RangeTest MethodAnalysis TimePerformed AtPathologist Signature C-REACTIVE PROTEIN7.8(H)<0.5 mg/dL03/21/2025 12:50 PM [facility] Specimen (Source)Anatomical Location / LateralityCollection Method / Volume Collection TimeReceived TimeBloodBLOOD SPECIMEN / UnknownVenipuncture / Unknown 03/21/2025 12:22 PM CDT1 12:27 PM CDT Narrative Authorizing ProviderResult TypeResult [facility] Hospitaltonny Burt NPCHEMISTRY Final ResultPerforming OrganizationAddressty/[facility] CodePhone Number [address] [phone] * (ABNORMAL) D-DIMER,QUANTITATIVE (03/21/2025 12:22 PM CDT)ComponentValueRef RangeTest MethodAnalysis TimePerformed AtPathologist Signature D-DIMER,QUANTITATIVE1.66See comment FEU mcg/mL03/21/2025 12:54 PM [facility]-DIMER INTERPAbnormal(A)03/21/2025 12:54 PM [facility] Specimen (Source)Anatomical Location / LateralityCollection Method / Volume Collection TimeReceived TimeBloodBLOOD SPECIMEN / UnknownVenipuncture / Upwbkqn7003/21/2025 12:22 PM CDT1 12:[address] [facility] - 03/21/2025 12:54 PM CDT The cut off value for exclusion of Deep Vein Thrombosis and / or Pulmonary Embolism is 0.50 FEU mcg/mL For patients greater than 50 years of age the upper limit is age dependent and was calculated with the formula: ?? (PATIENT AGE x 0.01) FEU mcg/mL = Upper limit of normal range Authorizing ProviderResult TypeResult StatusSamantonny Burt NP HEMATOLOGYFinal ResultPerforming OrganizationAddressCity/State/ZIP CodePhone Number [facility] [address] [phone] * (ABNORMAL) COMP METABOLIC PANEL (03/21/2025 12:22 PM CDT) Only the most recent of2 resultswithin the time period is included. ComponentValueRef RangeTest MethodAnalysis TimePerformed AtPathologist Signature ABDGOZ448522 - 145 mmol/L1 12:50 PM [facility] HOMEPOTASSIUM4.43.5 - 5.1 mmol/L1 12:50 PM [facility] HOMETMBOWGMUGKWXZWNE06070 - 107 mmol/L 03/21/2025 12:50 PM [facility] HOMECO2,KFAQK9971 - 29 mmol/L1 12:50 PM [facility] HOMEANION GAP75 - 181 12:50 PM [facility] HOMEGLUCOSE105(H)70 - 99 mg/dL03/21/2025 12:50 PM [facility] CALCIUM9.08.8 - 10.4 mg/dL03/21/2025 12:50 PM [facility] HOMEComment: Reference ranges for this test were updated on 04/12/2024 to reflect our healthy population more accurately. Reference range changes are not retroactively applied to results, but previous results using the same methodology can be interpreted in the context of the new reference range. BUN25(H)8 - 23 mg/dL03/21/2025 12:50 PM [facility] HOMECREATININE1.000.70 - 1.20 mg/dL03/21/2025 12:50 PM [facility] HOMEBUN/CREAT RATIO25(H)10 - 20 03/21/2025 12:50 PM [facility] HOMEeGFR76(L)>90 mL/min/1.73j27903/21/2025 12:50 PM [facility] HOMEComment:As of 08/20/2021, eGFR is calculated by the CKD-EPI creatinine equation without race adjustment. ??eGFR can be influenced by muscle mass, exercise, and diet. ??The reported eGFR is an estimation onlyand is only applicable if the renal function is stable.ALBUMIN3.4(L)4.0 - 4.9 g/dL 03/21/2025 12:50 PM [facility] HOSPITALPROTEIN,TOTAL6.06.0 - 8.0 g/dL03/21/2025 12:50 PM [facility] HOSPITALBILIRUBIN,TOTAL0.60.0 - 1.2 mg/dL03/21/2025 12:50 PM [facility] HOMEALK UBWHTIYUFIJ2060 - 129 IU/L1 12:50 PM CDT [facility])2310 - 50 IU/L1 12:50 PM [facility] HOMEAST (SGOT)2710 - 50 IU/L1 12:50 PM [facility]ITALpecimen (Source)Anatomical Location / LateralityCollection Method / VolumeCollection TimeReceived TimeBloodBLOOD SPECIMEN / UnknownVenipuncture / Ptagtfq6703/21/2025 12:22 PM CDT1 12:27 PM CDT Narrative Authorizing ProviderResult TypeResult Veronica Burt NPCHEMISTRY Final ResultPerforming OrganizationAddressCity/State/ZIP CodePhone Number [facility] [address] [phone] * WHITE BLOOD COUNT (03/20/2025 5:27 AM CDT)ComponentValueRef RangeTest Method Analysis TimePerformed AtPathologist SignatureWHITE BLOOD COUNT5.64.5 - 11.0 thou/cu mm03/20/2025 5:56 AM [facility]ITALpecimen (Source)Anatomical Location / LateralityCollection Method / VolumeCollection TimeReceived Time BloodBLOOD SPECIMEN / UnknownVenipuncture / Njwoidr8003/20/2025 5:27 AM CDT 03/20/2025 5:50 AM CDT Narrative Authorizing ProviderResult TypeResult Veronica Burt SLITTING MACHINE OPERATOR HELPER HEMATOLOGYFinal ResultPerforming OrganizationAddressCity/State/ZIP CodePhone Number [address] [phone] * (ABNORMAL) HEMOGLOBIN (03/20/2025 5:27 AM CDT) Only the most recent of4 resultswithin the time period is included. ComponentValueRef RangeTest MethodAnalysis TimePerformed AtPathologist Signature AYFJFNJOEH57.1(L)13.5 - 17.5 g/dL03/20/2025 5:56 AM [facility] HOMEMCV9680 - 100 fL03/20/2025 5:56 AM [facility] (Source)Anatomical Location / LateralityCollection Method / VolumeCollection TimeReceived TimeBlood BLOOD SPECIMEN / UnknownVenipuncture / Paxdgxz8103/20/2025 5:27 AM CDT1 5:50 AM CDT Narrative Authorizing ProviderResult TypeResult StatusBlanca Burt SLITTING MACHINE OPERATOR HELPER HEMATOLOGYFinal ResultPerforming OrganizationAddressCity/State/ZIP CodePhone Number [address] [phone] * SODIUM (03/20/2025 5:27 AM CDT)ComponentValueRef RangeTest MethodAnalysis Time Performed AtPathologist XgmosgbvoJIUUNB488713 - 145 mmol/L1 6:13 AM [facility] (Source)Anatomical Location / Laterality Collection Method / VolumeCollection TimeReceived TimeBloodBLOOD SPECIMEN / UnknownVenipuncture / Cjpaxrv6503/20/2025 5:27 AM CDT1 5:49 AM CDT Narrative Authorizing ProviderResult TypeResult Veronica Burt NPCHEMISTRY Final ResultPerforming OrganizationAddressty/State/ZIP CodePhone Number [address] [phone] * POTASSIUM (03/20/2025 5:27 AM CDT)ComponentValueRef RangeTest MethodAnalysis TimePerformed AtPathologist SignaturePOTASSIUM4.23.5 - 5.1 mmol/L1 6:13 AM [facility] (Source)Anatomical Location / Laterality Collection Method / VolumeCollection TimeReceived TimeBloodBLOOD SPECIMEN / UnknownVenipuncture / Dmfideg8003/20/2025 5:27 AM CDT1 5:49 AM CDT Narrative Authorizing ProviderResult TypeResult StatusBlanca Burt NPCHEMISTRY Final ResultPerforming OrganizationAddressty/State/ZIP CodePhone Number [facility] [address] [address] * (ABNORMAL) CREATININE (03/20/2025 5:27 AM CDT)ComponentValueRef RangeTest MethodAnalysis TimePerformed AtPathologist QvrqzcevqjEOW61(L)>90 mL/min/1.73m2 03/20/2025 6:13 AM [facility]Comment:As of 08/20/2021, eGFR is calculated by the CKD-EPI creatinine equation without race adjustment. ??eGFR can be influenced by muscle mass, exercise, and diet. ??The reported eGFR is an estimation onlyand is only applicable if the renal function is stable. CREATININE1.000.70 - 1.20 mg/dL03/20/2025 6:13 AM [facility] (Source)Anatomical Location / LateralityCollection Method / VolumeCollection TimeReceived TimeBloodBLOOD SPECIMEN / UnknownVenipuncture / Qykwrve8803/20/2025 5:27 AM CDT1 5:49 AM CDT Narrative Authorizing ProviderResult TypeResult StatusBlanca Burt NPCHEMISTRY Final ResultPerforming OrganizationAddressCity/State/ZIP CodePhone Number [facility] [address] [address] * MAGNESIUM (03/20/2025 5:27 AM CDT)ComponentValueRef RangeTest MethodAnalysis TimePerformed AtPathologist SignatureMAGNESIUM2.11.6 - 2.4 mg/dL03/20/2025 6:13 AM [facility] (Source)Anatomical Location / Laterality Collection Method / VolumeCollection TimeReceived TimeBloodBLOOD SPECIMEN / UnknownVenipuncture / Eklilfo3303/20/2025 5:27 AM CDT1 5:49 AM CDT Narrative Authorizing ProviderResult TypeResult StatusBlanca Butr NPCHEMISTRY Final ResultPerforming OrganizationAddressCity/State/[facility] CodePhone Number [address] [phone] * (ABNORMAL) URINALYSIS MICROSCOPIC (03/19/2025 8:53 AM CDT)ComponentValueRef RangeTest MethodAnalysis TimePerformed AtPathologist SignatureRBC6-10(A)0-2, None Seen /HPF03/19/2025 9:07 AM [facility]WBC0-20-2, 3-5, None Seen /HPF03/19/2025 9:07 AM [facility] HOMEBACTERIANone SeenNone Seen, Rare, Few Bacteria/HPF03/19/2025 9:07 AM [facility] HOMEEPITHELIAL CELLSFewNone Seen, Few Epi/HPF03/19/2025 9:07 AM [facility] (Source) Anatomical Location / LateralityCollection Method / VolumeCollection Time Received TimeUrineURINE SPECIMEN / UnknownNon-Blood / Aojetvi5503/19/2025 8:53 AM CDT1 8:58 AM CDT Narrative Authorizing ProviderResult TypeResult StatusEsauana Estevez Shawn DOURINEFinal ResultPerforming OrganizationAddressCity/State/ZIP CodePhone Number [address] [phone] * URINE CULTURE (03/19/2025 8:53 AM CDT)ComponentValueRef RangeTest Method Analysis TimePerformed AtPathologist SignatureCULTURENo growth (<1,000 CFU/mL) 03/21/2025 9:20 AM [facility]-CENTRAL LABORATORYSpecimen (Source)Anatomical Location / LateralityCollection Method / VolumeCollection TimeReceived TimeUrineURINE SPECIMEN / UnknownNon-Blood / Cctsfol5003/19/2025 8:53 AM CDT1 8:58 AM CDT Narrative Authorizing ProviderResult TypeResult StatusBlanca Burt SLITTING MACHINE OPERATOR HELPER MICROBIOLOGYFinal ResultPerforming OrganizationAddressCity/State/ZIP CodePhone Number [facility]EN[facility]AL LABORAT[facility] [address] [place] [address], [place] * (ABNORMAL) UA W/ SEDIMENT EXAM REFLEXED PER CRITERIA (03/19/2025 8:53 AM CDT) ComponentValueRef RangeTest MethodAnalysis TimePerformed AtPathologist SignatureCOLORYellowYellow Color03/19/2025 9:02 AM [facility]CLAR[facility] ClearClear Bcnplga1303/19/2025 9:02 AM [facility]ITALPECIFIC GRAVITY,URINE1.0201.010, 1.015, 1.020, 1.2104903/19/2025 9:02 AM [facility]PH,URINE5.56.0, 7.0, 8.0, 5.5, 6.5, 7.5, 8.510 9:[address] [facility]ICUROBILINOGEN,QUALITATIVENormalNormal EU/dl03/19/2025 9:02 AM [facility] HOMEPROTEIN, URINENegativeNegative mg/dL03/19/2025 9:[address] [facility]GLUCOSE, URINENegativeNegative mg/dL03/19/2025 9:[address] [facility]ENTERKETONES,URINENegativeNegative mg/dL03/19/2025 9:[address] [facility] CENTERBILIRUBIN,KYDVKRxwtweblVgdggxiq66/12/2025 9:02 AM [facility] HOMEOCCULT BLOOD,URINELarge(A)Eiskugao57/12/2025 9:02 AM [facility] HOMEIERCLIGGTMXDNFKBzdvipsvWtoemsrj45/12/2025 9:02 AM [facility] LEUKOCYTE ESTERASESmall(A)Aixunczs25/12/2025 9:02 AM [facility] Specimen (Source)Anatomical Location / LateralityCollection Method / Volume Collection TimeReceived TimeUrineURINE SPECIMEN / UnknownNon-Blood / Unknown 03/19/2025 8:53 AM CDT1 8:58 AM CDT Narrative Authorizing ProviderResult TypeResult StatusKris Wempen Drevlow DOURINEFinal ResultPerforming OrganizationAddressCity/State/ZIP CodePhone Number [address] [address] * (ABNORMAL) GLUCOSE METER (03/18/2025 11:35 AM CDT) Only the most recent of3 resultswithin the time period is included. ComponentValueRef RangeTest MethodAnalysis TimePerformed AtPathologist Signature GLUCOSE PHVMK692(H)65 - 100 mg/dL03/18/2025 1:49 PM CDTOWATONNA HOSPITALSpecimen (Source)Anatomical Location / LateralityCollection Method / VolumeCollection TimeReceived TimeBloodBLOOD SPECIMEN / Gjbcmxr5503/18/2025 11:35 AM CDT1 1:49 PM CDT Narrative Authorizing ProviderResult TypeResult StatusDavid Widen Ivance MDCHEMISTRYFinal ResultPerforming OrganizationAddressty/State/ZIP CodePhone Number [address] [phone] * XR HIP 2 OR 3 VIEWS W PELVIS RIGHT PORTABLE (03/16/2025 2:19 PM CDT)Anatomical RegionLateralityModalityHIPS, HIPR, PelvisDigital RadiographySpecimen (Source)Anatomical Location / LateralityCollection Method / VolumeCollection TimeReceived Time Narrative Authorizing ProviderResult TypeResult StatusDavid Widen Ivance MDGENERAL IMAGING Final Result * [facility] TRAY PR10 (03/16/2025 1:15 PM CDT) Narrative Kamryn Martinez CRNA - 03/16/2025 1:15 PM CDT Kamryn Martinez CRNA 03/16/2025 1:17 PM Spinal Block Patient location during procedure: OR Start time: 03/16/2025 11:30 AM End time: 03/16/2025 11:35 AM Reason for block: primary anesthetic PreProcedure Checklist Completed: patient identified, risks and benefits discussed, timeout performed, hand hygiene performed, chloraprep used and completely dried prior to procedure, IV checked, site marked, surgical consent and hand hygiene performed Spinal Block Patient position: sitting Prep: chloraprep and sterile drape Patient monitoring: continuous pulse oximetry and ECG Approach: midline Skin Infiltration: lidocaine 1% Location: L3-4 Needle Needle type: pencil-point Needle gauge: 24 G Needle length: 3.5 in Assessment Sensory level: T6 Events: no complications. Additional Notes In sitting position, L3-4 id'd, ??chloraprep to skin and sterile drape placed, 1% lidocaine local, introducer placed and pencan spinal needle passed easily, +clear csf returned, -heme and paresthesia, +swirl before and after injection of 0.75% bupivicaine, Authorizing ProviderResult TypeResult StatusRobert Jelani Nascimento DOANESTHESIA PX NOTE ORDERABLESFinal Result from Last 3 Months Insurance Advance Directives TypeDate RecordedPatient RepresentativeExplanationHealthcare Kzyucwmtl94/10/2025 03/17/2025 * Full Code (Latest Code Status on File) Date ActivatedDate MnncdjdvweuUwpclmdc90/9/2025 9:19 AM03/21/2025 5:01 PM QuestionAnswerCommentsCode Status Discussion:* Reviewed Preferences * Full Code Date ActivatedDate InactivatedComments12/31/2023 6:04 AM01/04/2024 12:59 PM QuestionAnswerCommentsCode Status Discussion:* Not Discussed Care Teams Team MemberRelationshipSpecialtyStart DateEnd Date Pcp, No PCP - Rxzxuho39/8/25
--- OUTSIDE RECORDS SUMMARY | 2025-06-03 06:59 | XMS_ITS | Encounter Summary ---
Author Organization [facility] Address [address] [place] [address] Care Team Providers Care Cost Recorder Name Role Phone Ye Stafford M.D. Primary Care Provider [phone] Reason for Visit * ReasonOnset DateCommentsPandaDoc Form05/22/2025dara Order [id number] Encounter Details DateTypeDepartmentCare Team (Latest Contact Info)Woxbsqlavmz20/15/2025linical Communication Department of Family Medicine, [facility], in [place], [place] [address] [address] Ye Stafford M.D. [address] [place] [address] PandaDoc Form ([facility] Order [id number]) Social History Tobacco UseTypesPacks/DayYears UsedDateSmoking Tobacco: FormerSmokeless [...] InformationValueDate RecordedSex Assigned at BirthNot on fileLegal JikMdve0607/10/2016 3:38 AM CSTGender IdentityNot on fileSexual OrientationNot on filedocumented as of this encounter Miscellaneous Notes * Telephone Encounter - Brigette Piedra - 05/23/2025 6:41 AM CST Form faxed back to facility. Copy sent to [facility] for scanning. RNATIONAL MARKETING COORDINATOR * Telephone Encounter - Brigette Piedra - 05/22/2025 8:20 AM CST Form was routed to Dr. Stafford for electronic review/signature. BOX TOE BUFFER: [facility] PHONE NUMBER: [phone] INFO REQUESTED: Order [id number] INSTRUCTIONS: Fax information to [phone] RNATIONAL MARKETING COORDINATOR documented in this encounter Plan of Treatment DateTypeDepartmentCare Team (Latest Contact Info)Onlrpwstzlr62/30/2025 11:30 AM CSTProcedure visit Department of Urology in [place], [place] [address] [phone] Silver Arias M.D. [address] [place] [phone] 06/09/2025 12:30 PM CSTAppointment Department of Laboratory Medicine in [place], [place] [address] [place] [phone] Silver Arias M.D. [address] [place] [phone] 06/09/2025 1:30 PM CSTAppointment Department of Radiology in [place], [place] [address] [place] [phone] Silver Arias M.D. [facility] [place] [address] 07/12/2025 12:30 PM CSTProcedure visit Department of Urology in [address] [phone] Marvin Dumas M.D. [address] [place] [phone] Discharge Disposition: Home or Self Care07/12/2025 1:15 PM CSTOffice Visit Department of Urology in [address] [phone] Marvin Dumas M.D. [address] [place] [phone] Discharge Disposition: Home or Self Caredocumented as of this encounter Visit Diagnoses Not on filedocumented in this encounter Additional Health Concerns AssessmentNoted TimePHQ-9 Depression Total Score: 2:21 PM INTERNATIONAL MARKETING COORDINATOR documented as of this encounter Care Teams Team MemberRelationshipSpecialtyStart DateEnd Date Ye Stafford M.D. [address] [phone] PCP - GeneralFamily Cjtfqigo21/24/25documented as of this encounter
--- OUTSIDE RECORDS SUMMARY | 2025-06-03 06:59 | XMS_ITS | Encounter Summary ---
Author Organization [facility] Address [address] [place] [address] Care Team Providers Care Food And Beverage Coordinator Name Role Phone Ye Stafford M.D. Primary Care Provider [phone] Reason for Visit * ReasonOnset DateCommentsPandaDoc Form05/16/2025[facility] (Order [id number] Encounter Details DateTypeDepartmentCare Team (Latest Contact Info)Wvjgxkitqck60/09/2025linical Communication Department of Family Medicine, [facility], in [place], [place] [address], [place] [address] Ye Stafford M.D. [address] [place] [address] PandaDoc Form ([facility] (Order [id number]) Social History Tobacco UseTypesPacks/DayYears UsedDateSmoking Tobacco: FormerSmokeless [...] or from getting things needed for daily living?No08/01/2025AHC UtilitiesAnswerDate RecordedIn the past 12 months has the electric, gas, oil, or water company threatened to shut off services in your home?No01/06/2025Housing StabilityAnswerDate Recorded What is your living situation today?I have a steady place to live01/06/2025Sex and Gender InformationValueDate RecordedSex Assigned at BirthNot on fileLegal MvkQkyx5807/10/2016 3:38 AM CSTGender IdentityNot on fileSexual OrientationNot on filedocumented as of this encounter Miscellaneous Notes * Telephone Encounter - Tosin Houser - 05/23/2025 7:45 AM CST Received back completed form. Form faxed back to the listed facility. Scanned into [facility] CTOR PAID MEDIA * Telephone Encounter - Tosin Houser - 05/16/2025 9:55 AM CST Form was routed to Ye Staffrod M.D. for electronic review/signature. COTTRELL OPERATOR: [facility] PHONE NUMBER: [phone] INFO REQUESTED: Order [id number] INSTRUCTIONS: Fax information to [phone] CTOR PAID MEDIA documented in this encounter Plan of Treatment DateTypeDepartmentCare Team (Latest Contact Info)Xsyzakfyorn02/30/2025 11:30 AM CSTProcedure visit Department of Urology in [place], [place] [address] [phone] Silver Arias M.D. [address] [place] [phone] 06/09/2025 12:30 PM CSTAppointment Department of Laboratory Medicine in [place], [place] [address] [place] [phone] Silver Arias M.D. [address] [place] [phone] 06/09/2025 1:30 PM CSTAppointment Department of Radiology in [place], [place] [address] [place] [address] Silver Arias M.D. [address] [place] [phone] 07/12/2025 12:30 PM CSTProcedure visit Department of Urology in [address] [phone] Marvin Dumas M.D. [address] [place] [phone] Discharge Disposition: Home or Self Care07/12/2025 1:15 PM CSTOffice Visit Department of Urology in [address] [phone] Marvin Dumas M.D. [address] [place] [phone] Discharge Disposition: Home or Self Caredocumented as of this encounter Visit Diagnoses Not on filedocumented in this encounter Additional Health Concerns AssessmentNoted TimePHQ-9 Depression Total Score: 2:21 PM DIRECTOR PAID MEDIA documented as of this encounter Care Teams Team MemberRelationshipSpecialtyStart DateEnd Date Ye Stafford M.D. [address] [place] [address] PCP - GeneralFamily Asduliwj02/24/25documented as of this encounter
--- OUTSIDE RECORDS SUMMARY | 2025-06-03 06:59 | XMS_ITS | Encounter Summary ---
Author Organization [facility] Address [address] [place] [address] Care Team Providers Care Electronic Industrial Controls Mechanic Name Role Phone Ye Stafford M.D. Primary Care Provider [phone] Encounter Details DateTypeDepartmentCare Team (Latest Contact Info)Dffcpharmmy62/16/2025linical Communication Department of Family Medicine, [facility], in [place], [place] [address] [place] [phone] Ye Stafford M.D. [address] [place] [address] Social History Tobacco UseTypesPacks/DayYears UsedDateSmoking Tobacco: FormerSmokeless [...] InformationValueDate RecordedSex Assigned at BirthNot on fileLegal ImiGjfs9007/10/2016 3:38 AM CSTGender IdentityNot on fileSexual OrientationNot on filedocumented as of this encounter Miscellaneous Notes * Telephone Encounter - Amina Eid L.P.N. - 05/24/2025 8:47 AM SEWER BUILDER Talked with pt and gave him the recommendations per provider. Pt has an appointment [facility] today 05/24/25 and will follow recommendations if that is what they suggest as well. Pt will call back to schedule follow up with nurse and PCP. R BUILDER * Telephone Encounter - Jaida Davidson L.P.N. - 05/23/2025 3:21 PM CST ----- Message from Celestino Esposito P.A.-C., M.S. sent at 05/23/2025 2:31 PM SEWER BUILDER ----- Please call the patient and let him know that I have communicated with his PCP Dr. Stafford. The recommendation is to stop amlodipine as this could be contributing to the edema in his legs and his scrotum but he is taking this for his blood pressure which continues to be elevated. In place of the amlodipine we would add a thiazide diuretic and I have sent a prescription for chlorthalidone. The patient has orders for blood pressure check which he needs to do in a week and then follow up with his primary care provider in 2 weeks. He has help coordinate. Celestino Esposito PA-C ----- Message ----- From: Ye Stafford M.D. Sent: 05/23/2025 1:46 PM SEWER BUILDER To: Celestino Esposito P.A.-C., M.S. Thanks for reaching out Celestino. I advise that the patient schedule an appointment so we can review his blood pressure readings and compliance with medications. For now, amlodipine should be discontinued due to leg edema and you maysubstitute with a thiazide diuretic, assuming no contraindications. Happy to see the patient for any additional follow up. Thank you, Ye ----- Message ----- From: Celestino Esposito P.A.-C., M.S. Sent: 05/11/2025 8:06 PM SEWER BUILDER To: Ye Stafford M.D. Dr. Stafford, Evaluated this patient for left lower extremity today. Actually noted bilateral but he did have hipreplaced on the right. Ultrasound today without evidence of DVT bilateral. Scrotal ultrasound at your examination a few weeks ago with elevated blood pressure. You placed orders for blood pressure check but has not been obtained. His blood pressure elevated again in with the edema questioning the addition of diuretic but [facility]. Discuss other management strategies for the edema which does not seem to be related to heart failure with essentially normal BNP. Also has hemoglobin that is remaining abnormally low. He is working to establish with you and would like to continue to work with you. With his exam in concerns today and reviewing your notes previously and blood pressures wanted to get your thoughts of restarting hydrochlorothiazide or other diuretic. No pain with edema and no other indications of fluid overload but not CXR R BUILDER documented in this encounter Plan of Treatment DateTypeDepartmentCare Team (Latest Contact Info)Bivhglhifcm88/30/2025 11:30 AM CSTProcedure visit Department of Urology in [place], [place] [address] [phone] Silver Arias M.D. [address] [place] [phone] 06/09/2025 12:30 PM CSTAppointment Department of Laboratory Medicine in [place], [place] [address] [phone] Silver Arias M.D. [address] [place] [phone] 06/09/2025 1:30 PM CSTAppointment Department of Radiology in [place], [place] [address] [place] [phone] Silver Arias M.D. [address] [place] [phone] 07/12/2025 12:30 PM CSTProcedure visit Department of Urology in [address] [phone] Marvin Dumas M.D. [address] [place] [phone] Discharge Disposition: Home or Self Care07/12/2025 1:15 PM CSTOffice Visit Department of Urology in [address] [phone] Marvin Dumas M.D. [address] [place] [phone] Discharge Disposition: Home or Self Caredocumented as of this encounter Visit Diagnoses Not on filedocumented in this encounter Additional Health Concerns AssessmentNoted TimePHQ-9 Depression Total Score: 2:21 PM SEWER BUILDER documented as of this encounter Care Teams Team MemberRelationshipSpecialtyStart DateEnd Ye Stafford M.D. [address], [place] [phone] PCP - GeneralFamily Gpuxkilz45/24/25documented as of this encounter
--- OUTSIDE RECORDS SUMMARY | 2025-06-03 06:59 | XMS_ITS | Encounter Summary ---
Author Organization [facility] Address [address] [place] [address] Care Team Providers Care Audit Associate Name Role Phone Ye Stafford M.D. Primary Care Provider [phone] Encounter Details DateTypeDepartmentCare Team (Latest Contact Info)Dwxbmblaihh60/15/2025linical Communication Department of Urology in [place], [place] [address] [place] [address] Marvin Dumas M.D. [address] [place] [address] Social History Tobacco UseTypesPacks/DayYears UsedDateSmoking Tobacco: FormerSmokeless [...] InformationValueDate RecordedSex Assigned at BirthNot on fileLegal YogRukk8007/10/2016 3:38 AM CSTGender IdentityNot on fileSexual OrientationNot on filedocumented as of this encounter Miscellaneous Notes * Telephone Encounter - Silver Arias M.D. - 05/22/2025 11:56 AM ENVIRONMENT COORDINATOR Order signed, thank you. RONMENT COORDINATOR documented in this encounter Plan of Treatment DateTypeDepartmentCare Team (Latest Contact Info)Pvjqqybugph79/30/2025 11:30 AM CSTProcedure visit Department of Urology in [place], [place] [address] [place] [phone] Silver Arias M.D. [address] [place] [phone] 06/09/2025 12:30 PM CSTAppointment Department of Laboratory Medicine in [place], [place] [address] [place] [phone] Silver Arias M.D. [address] [place] [phone] 06/09/2025 1:30 PM CSTAppointment Department of Radiology in [place], [place] [address] [phone] Silver Arias M.D. [address] [place] [phone] 07/12/2025 12:30 PM CSTProcedure visit Department of Urology in [address] [phone] Marvin Dumas M.D. [address] [place] [address], [place] [phone] Discharge Disposition: Home or Self Care07/12/2025 1:15 PM CSTOffice Visit Department of Urology in [place], [place] [address] [place] [phone] Marvin Dumas M.D. [address] [place] [phone] Discharge Disposition: Home or Self CareNameTypePriorityAssociated Diagnoses Order ScheduleCreatinine with Estimated GFRLabRoutine Retention Urinary Expected: 05/22/2025, Expires: 08/20/2026documented as of this encounter Visit Diagnoses Diagnosis Retention Urinary- Primary documented in this encounter Additional Health Concerns AssessmentNoted TimePHQ-9 Depression Total Score: 2:21 PM ENVIRONMENT COORDINATOR documented as of this encounter Care Teams Team MemberRelationshipSpecialtyStart DateEnd Ye Stafford M.D. [address], [place] [address] PCP - GeneralFamily Rulrvtfd96/24/25documented as of this encounter
--- OUTSIDE RECORDS SUMMARY | 2025-06-03 06:59 | XMS_ITS | Encounter Summary ---
Author Organization [facility] Address [address] [place] [address] Care Team Providers Care Anesthesiologist Assistant Name Role Phone Ye Stafford M.D. Primary Care Provider [phone] Reason for Referral * MRI/CAT/PET Scan (Routine) - AuthorizedSpecialtyDiagnoses / ProceduresReferred By ContactReferred To ContactRadiology Diagnoses Retention Urinary Benign Prostatic Hyperplasia With Lower Urinary Tract Symptom Procedures CT Abdomen Pelvis without IV Contrast CT Abdomen Pelvis without IV Contrast Silver Arias M.D. [address] [place] [phone] Phone: tel: fax: [facility] Region Referral IDStatusReasonStart DateExpiration DateVisits RequestedVisits [id number]/ TED PHYSICAL EDUCATION AIDE Encounter Details DateTypeDepartmentCare Team (Latest Contact Info)Kbaeckwwezy86/12/2025Orders Only Department of Urology in [place], [place] [address] [place] [phone] Silver Arias M.D. [address] [place] [phone] Retention Urinary; Benign Prostatic Hyperplasia With Lower [...] InformationValueDate RecordedSex Assigned at BirthNot on fileLegal KvyEytt2007/10/2016 3:38 AM CSTGender IdentityNot on fileSexual OrientationNot on filedocumented as of this encounter Plan of Treatment DateTypeDepartmentCare Team (Latest Contact Info)Yjojjeamtva33/30/2025 11:30 AM CSTProcedure visit Department of Urology in [place], [place] [address] [phone] Silver Arias M.D. [facility] [place] [phone] 06/09/2025 12:30 PM CSTAppointment Department of Laboratory Medicine in [place], [place] [address] [phone] Silver Arias M.D. [facility] [place] [phone] 06/09/2025 1:30 PM CSTAppointment Department of Radiology in [place], [place] [address] [phone] Silver Arias M.D. [address] [place] [phone] 07/12/2025 12:30 PM CSTProcedure visit Department of Urology in [address] [phone] Marvin Dumas M.D. [address] [place] [phone] Discharge Disposition: Home or Self Care07/12/2025 1:15 PM CSTOffice Visit Department of Urology in [address] [phone] Marvin Dumas M.D. [address] [place] [phone] Discharge Disposition: Home or Self CareNameTypePriorityAssociated Diagnoses Order ScheduleCT Abdomen Pelvis without IV ContrastImagingRAD - Routine (most inpatients and all outpatients) Retention Urinary Benign Prostatic Hyperplasia With Lower Urinary Tract Symptom Expected: 05/19/2025 (Approximate), Expires: 08/08/2026documented as of this encounter Visit Diagnoses Diagnosis Retention Urinary Benign Prostatic Hyperplasia With Lower Urinary Tract Symptom documented in this encounter Additional Health Concerns AssessmentNoted TimePHQ-9 Depression Total Score: 2:21 PM ADAPTED PHYSICAL EDUCATION AIDE documented as of this encounter Care Teams Team MemberRelationshipSpecialtyStart DateEnd Date Ye Stafford M.D. [address] [phone] PCP - GeneralFamily Riqnyubx06/24/25documented as of this encounter
--- OUTSIDE RECORDS SUMMARY | 2025-06-03 07:00 | XMS_ITS | Clinical Summary ---
Author Organization [facility] Address [address] [place] [address] Care Team Providers Care Fence Machine Operator Name Role Phone Ye Stafford M.D. Primary Care Provider [phone] Source Comments Patient records contain information from all sites at [facility]. For routine questions regarding patient records, call [phone] during business hours, M-F 8:00 AM - 5:00 PM Central Time. Record requests for emergency care only can be directed to [phone] at any time.[facility] Allergies No known active allergies Medications * This document contains information received from the source organization and may not represent a complete record from that organization. MedicationSigDispense QuantityRefillsLast FilledStart DateEnd DateStatus apixaban (Eliquis) 5 mg tablet Take 1 tablet (5 mg total) by mouth 2 (two) times a day. 60 tablet ctive aspirin [address] tablet Take 1 tablet (81 mg total) by mouth daily. 30 tablet ctive atorvastatin (Lipitor) 40 mg tablet Take 1 tablet (40 mg total) by mouth at bedtime. 30 tablet ctive lisinopriL 40 mg tablet Take 1 tablet (40 mg total) by mouth daily. 30 tablet ctive metoprolol succinate (Toprol XL) 25 mg 24 hr tablet Take 1 tablet (25 mg total) by mouth daily. Do not crush or chew. 30 tablet ctive finasteride (Proscar) 5 mg tablet Take 5 mg by mouth daily.Active tamsulosin (Flomax) 0.4 mg 24 hr capsule Take 0.4 mg by mouth daily.Active amLODIPine (Norvasc) 5 mg tablet Take 5 mg by mouth daily. for blood uhwvrirg01/20/2025tive cholecalciferol, vitamin D3, 25 mcg (1,000 Unit) tablet Take 25 mcg by mouth daily.5Active sennosides-docusate sodium (Senokot-S) 8.6-50 mg per tablet Take 3 tablets by mouth 2 (two) times a day.4Active bisacodyL (Dulcolax) 10 mg suppository Insert 10 mg into the rectum at bedtime as needed for constipation.03/21/2025 Active bisacodyL (Dulcolax) 5 mg EC tablet Take 10 mg by mouth at bedtime as needed for constipation.03/21/2025tive polyethylene glycol (Miralax) 17 gram powder packet Take 1 packet by mouth at bedtime as needed for constipation.03/21/2025tive acetaminophen (TylenoL) 500 mg tablet Take 2 tablets (1,000 mg total) by mouth every 6 (six) hours as needed for pain. 30 tablet 10:58 PM CDT15Active lidocaine HCL (Glydo) 2 % topical jelly Insert 5 mL (1 Application total) into the urethra as needed (Pain associated with catheterization). 1 applicator 10:57 PM CDT15Active chlorthalidone (Hygroton) 25 mg tablet Take 1 tablet (25 mg total) by mouth daily. 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 Arthroplasty Total Hip Replacement Status Post Right03/21/2025 Overview (04/06/2025): Right total hip arthroplasty at [facility] on 03/16/2025 Assessment & Plan (04/09/2025 8:43 PM MATERIAL HANDLING CREW SUPERVISOR): Pain is under good control. Oxycodone has been discontinued Follow-up with orthopedics 04/25/2025 I will order home PT and OT Assessment & Plan (04/06/2025 7:18 PM CDT): Pain is under control with Tylenol and oxycodone as needed Plans to follow-up with orthopedics on 03/30/2025 Assessment & Plan (04/09/2025 1:09 PM MATERIAL HANDLING CREW SUPERVISOR): Pain is controlled with scheduled acetaminophen and prn oxycodone. He is on max doses of acetaminophen. This will be changed to as needed. He has not needed oxycodone recently so will discontinue. Presence Of Right Artificial Hip Joint03/16/2025Primary Osteoarthritis Knee Right01/13/2025rthritis Hip01/13/2025Retention Odrubwn9601/17/2024 Overview (04/06/2025): Hospital course after hip arthroplasty complicated by urine retention. Magana catheter was placed. He has had similar difficulties with other surgeries. Assessment & Plan (04/09/2025 8:44 PM MATERIAL HANDLING CREW SUPERVISOR): Ongoing trouble with urinary retention Failed voiding trials Magana catheter will be replaced this afternoon Urology consult order has been placed Assessment & Plan (04/09/2025 1:09 PM MATERIAL HANDLING CREW SUPERVISOR): He needs lidocaine ordered for prn catheterization. Urology consult has been requested. Assessment & Plan (04/06/2025 7:30 PM CDT): I wrote orders to replace the Magana catheter tomorrow morning if he is still not successful urinating on his own. I will also place a urology consult Assessment & Plan (04/06/2025 7:19 PM CDT): Magana catheter remains in place at this time I will write orders for a voiding trial. Assessment & Plan (01/26/2024 3:51 PM CDT): No concerns Assessment & Plan (01/17/2024 7:18 PM CDT): Urology follow-up as scheduled. Prior to that, will discontinue catheter, check postvoid residuals,and straight cath PRN. Hypertensive Chronic Kidney Disease With Stage 1 Through Stage 4 Chronic Kidney Disease, Or Unspecified Chronic Kidney Jzlfwsr4801/07/2024 Overview (04/06/2025): Managed on lisinopril, metoprolol, and amlodipine Assessment & Plan (04/09/2025 8:47 PM MATERIAL HANDLING CREW SUPERVISOR): Images from the original note were not included. Continue lisinopril 40 mg daily Continue metoprolol succinate 25 mg daily Continue amlodipine 5 mg daily He does have some lower extremity edema today: He mentioned to me he had been on a diuretic previously but it was stopped because of low blood pressures and problems with his kidney functions He should continue to monitor his blood pressures and edema and follow-up with his primary provider Assessment & Plan (04/06/2025 7:20 PM CDT): Continue to monitor blood pressures Continue lisinopril 40 mg daily Continue metoprolol succinate 25 mg daily Continue amlodipine 5 mg daily Assessment & Plan (04/09/2025 1:09 PM MATERIAL HANDLING CREW SUPERVISOR): Blood pressures have ranged from 90s to 150s. Continue current medications and continue to monitor Assessment & Plan (01/26/2024 3:50 PM CDT): Blood pressure normotensive ranging from 112-129 systolic and 63-71 diastolic. Continue care plan. Chronic Kidney Disease Stage 2 Glomerular Filtration Rate 60 To 8901/07/2024 Overview (04/06/2025): Lab Results Component Value Date CREATININE 1.00 03/21/2025 GFR 76 on 03/21/2025 Assessment & Plan (04/09/2025 1:09 PM MATERIAL HANDLING CREW SUPERVISOR): Most recent GFR is 76. Assessment & Plan (01/07/2024 9:28 AM CDT): Most recent GFR 50. Arthroplasty Total Knee Replacement Status Post Left01/06/2024 Overview (01/06/2024): He had robotic left total knee arthroplasty on 12/31/[address] Downey at [facility]. He uriel aspirin and apixaban for blood clot prevention post op. Assessment & Plan (01/26/2024 3:46 PM CDT): Patient endorsed overall feeling good with pain well controlled. He continues aspirin and apixaban for blood loss prophylaxis. Last seen by Orthopedics on 01/15/24 and will be seen for follow-up withorthopedics on 02/15/2024. Assessment & Plan (01/17/2024 7:16 PM CDT): Pain is well controlled with acetaminophen and occasional oxycodone. He is working with and progressing in therapies. Assessment & Plan (01/06/2024 5:44 PM CDT): He is a short term resident at [facility] for therapy. Pain controlled. Dressing clean dry and intact. Constipation Slow Uerzokp3201/06/2024 Overview (01/06/2024): He is complaining of constipation Assessment & Plan (04/06/2025 7:23 PM CDT): He is currently getting senna S3 tabs twice daily and has MiraLax available as needed. I encouragedthem to use MiraLax as he is feeling constipated. Assessment & Plan (01/26/2024 3:48 PM CDT): Denied constipation. Continue bowel regimen. Assessment & Plan (01/06/2024 5:56 PM CDT): MiraLAX and senna s given Other Specified Hearing Loss Dscxvmqal77/17/2024Endarterectomy Carotid Status Post12/23/2023 Overview (12/23/2023): Mar 13, 2023 Entered By: DESTINI JJ Comment: Rt CEA and bovine patch repair, 08/2022 Assessment & Plan (01/06/2024 5:57 PM CDT): On apixaban and aspirin. 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 - Continue atorvastatin 40 mg at bedtime. Follow up As needed. Ye Stafford M.D. Department of Family Medicine [facility] Assessment & Plan (04/09/2025 1:09 PM MATERIAL HANDLING CREW SUPERVISOR): Continue atorvastatin. Assessment & Plan (01/26/2024 3:49 PM CDT): Continue care plan. Assessment & Plan (01/06/2024 5:46 PM CDT): Continue med Hernia Ifycxa8112/23/2023ain Knee Left12/23/2023Long Term (Current) Anticoagulant Plmjcrevt12/17/2024 Overview (03/27/2025): Currently on apixaban in the setting of history of unprovoked DVT. Assessment & Plan (04/09/2025 1:09 PM MATERIAL HANDLING CREW SUPERVISOR): Lifelong anticoagulation has been recommended. Beat Premature Xmqttkplfgf23/17/2024enign Prostatic Hyperplasia With Lower Urinary Tract Snbzqjw1702/05/2023 Overview (01/06/2024): On tamsulosin and finasteride Assessment & Plan (04/09/2025 8:45 PM MATERIAL HANDLING CREW SUPERVISOR): Continue finasteride 5 mg daily Continue tamsulosin 0.4 mg daily Assessment & Plan (04/06/2025 7:20 PM CDT): Continue finasteride 5 mg daily Continue tamsulosin 0.4 mg daily Assessment & Plan (04/09/2025 1:09 PM MATERIAL HANDLING CREW SUPERVISOR): Longstanding difficulties with BPH, now with urine retention requiring intermittent catheterization. Consider increase dose tamsulosin. Assessment & Plan (01/26/2024 3:46 PM CDT): No concerns. Continue tamsulosin and finasteride Assessment & Plan (01/06/2024 5:51 PM CDT): He has a magana catheter draining clear yellow urine. He has urinary retention. He will see urology Lrrgcecrgfyofi90/17/2021 Overview (12/23/2023): Aug 30, 2012 Entered By: VALERY BRITO Comment: S/P left total hip in 2005. Aug 30, 2012 Entered By: VALERY BRITO Comment: S/P left total hip in 2005. Assessment & Plan (01/26/2024 3:51 PM CDT): Pain well controlled with current pain regimen. Ukxtpmwh78/17/8594Elxt56/17/2021erianal Venous Junyjkjcxb84/17/2021hinitis Kyntjvki61/17/2021iaphragmatic Hernia Without Obstruction Or Gafqwzuq61/17/2021 Apnea Sleep Ddgminpzydy98/20/2014 Overview (12/23/2023): treated with CPAP autotitration between 8 and 20 cm of water. Obesity Body Mass Index 30-39.9 Adult04/27/2014 Overview (04/28/2025): BMI 32.15 Kg Gastroesophageal Reflux Disease Without Biscimdfyip86/02/2010 Resolved Problems ProblemNoted DateDiagnosed DateResolved DateOcclusion And Stenosis Right Carotid Wykhtf87enign Prostatic Hyperplasia Hypertrophy With Srttmskontv84Hypertension Essential Rpxfsxc4012/23/2023 01/07/2024 Overview (01/06/2024): Managed on HCTZ, lisinopril, metoprolol and aspirin Assessment & Plan (01/06/2024 5:48 PM CDT): He is normotensive on current plan Grospdfcodje90 Overview (10/28/2016): HTN [Hypertension] Encounters * This document contains information received from the source organization and may not represent a complete record from that organization. DateTypeDepartmentCare YyayNikqyikwpbg96/26/2025Clinical Communication Department of [facility], [facility], in [place], [place] [address], [place] [address] Ye Stafford M.D. Caesar Form ( [place] (order [id number]))5Clinical Communication Department of [facility], [facility], in [place] [address] Ye Stafford M.D. 05/23/2025Orders Only Department of Family Medicine, [facility], in [address] [address] Celestino Esposito P.A.-C., M.S. Hypertension Essential Primary (Primary Dx)5Clinical Communication Department of Urology in [address] [address] Marvin Dumas M.D. 5Clinical Communication Department of Family Medicine, [facility], in [address] [address] Ye Stafford M.D. PandaDoc Form ([facility] Order [id number])05/19/2025Orders Only Department of Urology in [address] [address] Silver Arias M.D. Retention Urinary; Benign Prostatic Hyperplasia With Lower Urinary Tract Wiieznk50/09/2025Clinical Communication Department of Family Medicine, [facility], in [address] [address] Ye Stafford M.D. PandaDoc Form ([facility] Order [id number])5Clinical Communication Department of Family Medicine, [facility], in [address] [address] Ye Stafford M.D. PandaDoc Form ([facility] (Order [id number])05/11/2025 4:52 PM MATERIAL HANDLING CREW SUPERVISOR - 05/11/2025 11:59 PM CSTHospital Encounter Department of Laboratory Medicine in [address] [address] Celestino Esposito P.A.-C., M.S. Edema Lower Extremity Discharge Disposition: Home or Self Care05/11/2025 4:00 PM MATERIAL HANDLING CREW SUPERVISOR - 05/11/2025 4:51 PM CSTHospital Encounter Department of Radiology in [address] [address] Celestino Esposito P.A.-C., M.S. Edema Lower Extremity Discharge Disposition: Home or Self Care05/11/2025 4:00 PM CSTOffice Visit Department of [facility], [facility], in [address] [address] Celestino Esposito P.A.-C., M.S. Swelling Scrotum (Primary Dx); Edema Lower Extremity; Hypertension Essential Xaydgcp2905/10/2025Nurse Triage Department of [facility], [facility], in [address] [address] Dario Loza RFranchesca Leg Mbdkzjvv04/03/2025Clinical Communication Department of Urology in [address] [address] Silver Arias M.D. 05/09/2025 9:30 AM CSTProcedure visit Department of Urology in [address] [address] Silver Arias M.D. Gomez, Flor RAlexNAlex Retention Urinary; Benign Prostatic Hyperplasia With Lower Urinary Tract Ssbvtsl50/25/2025Clinical Communication Department of [facility], [facility], in [address] [address] Ye Stafford M.D. PandaDoc Form ([facility] (order [id number])05/01/2025Results Follow-Up Department of Family Medicine, [facility], in [address] [address] Breanna Eng APRN, C.NAlexPAlex Urinalysis, with Microscopic: Urine, Midstream, Bacterial Culture, Aerobic + Susceptibility, Urine04/28/2025 4:39 PM MATERIAL HANDLING CREW SUPERVISOR - 04/28/2025 11:59 PM CSTHospital Encounter Department of Laboratory Medicine in [address] [address] Ye Stafford M.D. Benign Prostatic Hyperplasia Without Obstruction Discharge Disposition: Home or Self Care04/28/2025 4:38 PM CSTHospital Encounter Department of Laboratory Medicine in [address] [address] Ye Stafford M.D. Benign Prostatic Hyperplasia Without Obstruction Discharge Disposition: Home or Self Care04/28/2025 4:00 PM CSTComprehensive Visit Department of Family Medicine, [facility], in [address] [address] Ye Stafford M.D. Swelling Scrotum (Primary Dx); Benign Prostatic Hyperplasia Without Obstruction; Hypertension Essential Primary; Zdtabcdewdnjcc30/19/2025Clinical Communication Department of Family [facility], in [address] [address] Ye Stafford M.D. PandaDoc Form ([facility] (order #[id number]))5Clinical Communication Department of Family [facility], [facility], in [address] [address] Ye Stafford M.D. PandaDoc Form ([facility] (order #[id number]))5Clinical Communication Department of Family [facility], [facility], in [address] [place] [address] Ye Stafford M.D. PandaDoc Form ([facility] (order #[id number]) )04/25/2025 1:30 PM CSTOffice Visit Department of Orthopedic Surgery in [address] [address] Marvin Ward M.D. 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 Arthritis Hip Discharge Disposition: Home or Self Care5Clinical Communication Department of Urology in [address] [address] Silver Arias M.D. Communication (Urology Orders)04/19/2025 3:00 PM CSTComprehensive Visit Department of Urology in [address] [address] Silver Arias M.D. Retention Urinary (Primary Dx); Benign Prostatic Hyperplasia With Lower Urinary Tract Symptom Discharge Disposition: Home or Self Care5Clinical Communication Department of Family Medicine, [facility], in [address] [address] Ye Stafford M.D. PandaDoc Form ([facility] Order [id number])04/07/2025 10:00 AM CDTExternal Outreach Senior Services in [facility] [address] Debby Morales P.A.-C. 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 Other Retention Of Urine (Primary Dx); Benign Prostatic Hyperplasia Hypertrophy With Btsrbcpcuhk60/23/2025 3:21 PM CDT - 03/30/2025 11:59 PM CDTEmergency [facility] [address] [place] [phone] Discharge Disposition: Home or Self Care03/30/2025 1:00 PM CDTOffice Visit Department of Orthopedic Surgery in [place], [place] [address] [address] Yani Riley P.A.Berry., P.A. Arthroplasty Total Hip Replacement Status Post Right (Primary Dx)03/28/2025 8:00 AM CDTClinical Communication Senior Services in [facility] [address] [place] [address] Carolann Fisher, MERRITT, C.N.P. Discharge Disposition: Home or Self Care03/27/2025 10:00 AM CDTExternal Outreach Senior Services in [facility] [address] [phone] eDbby Morales, P.A.-C. Sari Greenberg M.D. Arthroplasty Total Hip Replacement Status Post Right (Primary Dx); Benign Prostatic Hyperplasia Hypertrophy With Obstruction; Hyperlipidemia; Hypertensive Chronic Kidney Disease With Stage 1 Through Stage 4 Chronic Kidney Disease, Or Unspecified Chronic Kidney Disease; Group Home (Current) Anticoagulant Treatment; Thrombosis Deep Vein Personal History; Other Retention Of Urine; Chronic Kidney Disease Stage 2 Glomerular Filtration Rate 60 To 8903/22/2025 3:00 PM CDTExternal Outreach Senior Services in [facility] [address] [place] [address] Debby Morales P.A.-C. Arthroplasty Total Hip Replacement Status Post Right (Primary Dx); Other Retention Of Urine; Benign Prostatic Hyperplasia Hypertrophy With Obstruction; Hypertensive Chronic Kidney Disease With Stage 1 Through Stage 4 Chronic Kidney Disease, Or Unspecified Chronic Kidney Disease; Chronic Kidney Disease Stage 2 Glomerular Filtration Rate 60 To 89; Endarterectomy Carotid Status Post; Group Home (Current) Anticoagulant Treatment; Apnea Sleep Obstructive; Thrombosis Deep Vein Personal History; Constipation Slow Kcxulkg8303/21/2025 12:19 PM CDT - 03/21/2025 11:59 PM CDT Hospital Encounter Department of Radiology in [place], [place] [address] [address] Blanca Burt C.NLisa Swelling Leg Right Discharge Disposition: Home or Self Care03/16/2025 7:36 AM CDT - 03/16/2025 11:59 PM CDTHospital Encounter Department of Radiology in [place], [place] [address] [address] Marvin Ward M.D. Pain Hip Right Discharge Disposition: Home or Self Carefrom Last 3 Months Immunizations ImmunizationAdministration DatesNext DueHZV (ZOSTAVAX)10/10/2011Influenza TIV (IM)03/18/2025Influenza high dose QV(65 years or older) (PF)03/13/2023Influenza, Quadrivalent, Adjuvanted, Preservative Free03/25/2022Influenza, Unspecified 04/06/2014,03/28/2013,03/29/2012,03/08/2011,02/26/2010,03/09/2009,06/16/2008, 03/17/2007,03/25/2006,03/31/20052031XCU6827/10/20159360ENTU0279Pneumococcal Conjugate(PCV), Howsrodgtth04/18/2022neumococcal, Xzopigaqanv00/29/2008RZV (SHINGRIX)03/13/2020,12/21/20199777JEVT-BJZ-0 (COVID-19) - PFIZER (Discontinued)(12 years or older)03/08/2021,08/03/2020,07/13/2020Td (Adult), sycgdwta91/21/2006Td Preservative Free (TENIVAC, DECAVAC)03/26/2020,05/28/2006Td, (Adult) Unspecified 06/17/2002Tdap12/15/2012Tetanus Toxoid, Qunxvdcqnsu39/25/2005influenza trivalent high dose (HD)(PF)03/15/2024,03/31/2017,03/25/2016,03/05/2015influenza trivalent vaccine (6 months and older)(PF)03/01/2019,04/01/2018influenza vaccine quad (FLUZONE/FLUARIX) (6 months and older)(PF)03/08/2021,03/13/2020 Family History Medical HistoryRelationNameCommentsParkinson's diseaseFather 1Parkinson's diseaseFather 2GlaucomaMother 1HypertensionMother 1GlaucomaMother 2Hypertension Mother 2RelationNameStatusCommentsFather 1AliveFather 2Mother 1AliveMother 2 Social History Tobacco UseTypesPacks/DayYears UsedDateSmoking Tobacco: FormerSmokeless [...] has the electric, gas, oil, or water [employer] threatened to shut off services in your home?No01/06/2025Housing StabilityAnswerDate RecordedWhat is your living situation today?I have a steady place to live01/06/2025Sex and Gender InformationValueDate RecordedSex Assigned at BirthNot on fileLegal Sex Male07/10/2016 3:38 AM CSTGender IdentityNot on fileSexual OrientationNot on file Last Filed Vital Signs Vital SignReadingTime TakenCommentsBlood Fyzivsbu582/8305/11/2025 3:26 PM MATERIAL HANDLING CREW SUPERVISOR Keiyb126405/11/2025 3:22 PM HGYMxfeaxmymur13.2 ??C (97.1 ??F)05/11/2025 3:22 PM CSTRespiratory Erva64107/12/2024 3:22 PM CSTOxygen Zeqjpfmwly39%04/07/2025 8:20 AM CDTInhaled Oxygen Concentration--Rcjqoj631 kg (261 lb 14.5 oz)04/28/2025 3:40 PM WEQPzxjso013.9 cm (6')04/07/2025 8:20 AM CDTBody Mass Index35.5204/07/2025 8:20 AM CDT Plan of Treatment DateTypeDepartmentCare Team (Latest Contact Info)Wlqcharuuhm80/30/2025 11:30 AM CSTProcedure visit Department of Urology in [place], [place] [address] [address] Silver Arias M.D. [address] [place] [phone] 06/09/2025 12:30 PM CSTAppointment Department of Laboratory Medicine in [place], [place] [address] [place] [phone] Silver Arias M.D. [facility] [place] [address] 06/09/2025 1:30 PM CSTAppointment Department of Radiology in [place], [place] [address] [place] [address] Silver Arias M.D. [address] [place] [phone] 07/12/2025 12:30 PM CSTProcedure visit Department of Urology in [address] [phone] Marvin Dumas M.D. [address] [place] [phone] Discharge Disposition: Home or Self Care07/12/2025 1:15 PM CSTOffice Visit Department of Urology in [address] [address] Marvin Dumas M.D. [address] [place] [phone] Discharge Disposition: Home or Self CareHealth MaintenanceDue DateLast Done CommentsVisit: Medicare Annual Aistcuai80/26/1944RSV vaccine - (32-36 weeks) or 50+ years (1 - 1-dose 75+ series)08/31/2018COVID-19 Vaccine ( season), 03/13/2023, 06/13/2022, Additional history existsOffice Visit for Blood Pressure Check / Re-check Creatinine Level (Kidney Function Test), 03/21/2025, 03/20/2025, Additional history existsPotassium Level, 03/21/2025, 03/20/2025, Additional history existsSodium Level05/11/2026 05/11/2025, 03/21/2025, 03/20/2025, Additional history existsVisit: Chronic Disease, age 18+07/12/2024DTaP,Tdap,and Td Vaccines (3 - Td or Tdap) , 12/15/2012, 05/28/2006, Additional history existsZoster ItsyrmdzNascgeptx42/06/2020, 12/21/2019, 10/10/2011Pneumococcal vaccine (50+ years)Vgnhxhjlp17/18/2022, 05/12/2016, 10/09/2014, Additional history exists Depression Screening (Annual PHQ-2)Vyhwicxol08/24/2025Fall Risk Screen (Annual) Hearwheff23/24/2025Influenza UrpgoclOruyyhjbd03/11/2025, 03/15/2024, 03/13/2023, Additional history existsIPV VaccinesAged OutNo longer eligible based on patient's age to complete this topic Medical Devices ImplantedTypeAreaManufacturerDevice IdentifierShelf Expiration DateModel / Serial / LotHip ImplantHip ImplantLeft: HipDescription:Around 2008 through VAHip Implant-03/16/2025 Implanted:03/16/2025 by Marvin Ward M.D. (Quantity not on file)Hip Implant Right: HipStrykerACCOLADE II/ TRIDENT II / / Knee Implant-12/31/2023 Implanted:12/31/2023 by Juventino Downey M.D. (Quantity not on file)Knee ImplantLeft: KneeStrykerTRIATHLON / / Procedures Procedure NamePriorityDate/TimeAssociated DiagnosisCommentsNT-PRO B-TYPE NATRIURETIC PEPTIDE (BNP), GYpytofq16/04/2025 5:07 PM MATERIAL HANDLING CREW SUPERVISOR Edema Lower Extremity BASIC METABOLIC PANEL, S/KZenpxvs68/04/2025 5:06 PM MATERIAL HANDLING CREW SUPERVISOR Edema Lower Extremity CBC WITH DIFFERENTIAL, AAesifvj15/04/2025 5:06 PM MATERIAL HANDLING CREW SUPERVISOR Edema Lower Extremity US LOWER EXTREMITY VEINS BILATERALRAD - Routine (most inpatients and all outpatients)05/11/2025 5:00 PM MATERIAL HANDLING CREW SUPERVISOR Edema Lower Extremity URO URETHRAL CATH FILL / REMOVE / VOIDING TRIAL (FILL/PULL)Rgrrmmc0805/09/2025 9:30 AM MATERIAL HANDLING CREW SUPERVISOR Retention Urinary Benign Prostatic Hyperplasia With Lower Urinary Tract Symptom BLADDER QKFUKJWDCOJXAHPIkkjakc78/02/2025 9:30 AM MATERIAL HANDLING CREW SUPERVISOR Retention Urinary URINALYSIS WITH VDDHZDYSMOHVnufkve21/21/2025 5:02 PM MATERIAL HANDLING CREW SUPERVISOR Benign Prostatic Hyperplasia Without Obstruction BACTERIAL CULTURE, AEROBIC + SUSC, UTDDFCrifzqn49/21/2025 5:02 PM MATERIAL HANDLING CREW SUPERVISOR Benign Prostatic Hyperplasia Without Obstruction PROSTATE-SPECIFIC AG (PSA) DIAGNOSTIC, UEmrbzhu35/21/2025 4:58 PM MATERIAL HANDLING CREW SUPERVISOR Benign Prostatic Hyperplasia Without Obstruction DX HIP AND PELVIS RIGHT 2-3 VIEWSRAD - Routine (most inpatients and all outpatients)04/25/2025 1:09 PM MATERIAL HANDLING CREW SUPERVISOR Arthritis Hip US LOWER EXTREMITY VEINS RIGHTRAD - Routine (most inpatients and all outpatients)03/21/2025 1:10 PM CDT Swelling Leg Right DX HIP AND PELVIS RIGHT 2-3 VIEWSRAD - Routine (most inpatients and all outpatients)03/16/2025 2:21 PM CDT Pain Hip Right from Last 3 Months Results * (ABNORMAL) NT-Pro B-Type Natriuretic Peptide (BNP) (05/11/2025 5:07 PM MATERIAL HANDLING CREW SUPERVISOR) ComponentValueRef RangeTest MethodAnalysis TimePerformed AtPathologist SignatureNT-Pro QFZ707(H)<=540 pg/mL05/11/2025 5:45 PM CSTOWATComment: NT-proBNP values less [...] Collection TimeReceived TimeBlood (Blood, Venous)05/11/2025 5:07 PM MATERIAL HANDLING CREW SUPERVISOR 05/11/2025 5:10 PM MATERIAL HANDLING CREW SUPERVISOR Narrative Authorizing ProviderResult TypeResult StatusCelestino Esposito P.A.-C., M.S.LAB BLOOD ADD-ONFinal ResultPerforming OrganizationAddressCity/State/ZIP CodePhone Number [facility] [address] [place] [address], [facility] OWAT [facility] in [place] [address] [place] [address] * (ABNORMAL) CBC with Differential, Blood (05/11/2025 5:06 PM MATERIAL HANDLING CREW SUPERVISOR)ComponentValue Ref RangeTest MethodAnalysis TimePerformed AtPathologist SignatureHemoglobin 10.5(L)13.2 - 16.6 g/dL05/11/2025 5:13 PM DYDBIUBMwnrcibtxt45.7(L)38.3 - 48.6 %05/11/2025 5:13 PM CSTOWATErythrocytes3.68(L)4.35 - 5.65 x10(12)/L107/12/2024 5:13 PM DMVGDCYBFR86.678.2 - 97.9 fL05/11/2025 5:13 PM CSTOWATRBC Distrib Width15.1(H)11.8 - 14.5 %05/11/2025 5:13 PM CSTOWATPlatelet Gjjns423173 - 317 x10(9)/L107/12/2024 5:13 PM CSTOWATLeukocytes5.93.4 - 9.6 x10(9)/L107/12/2024 5:13 PM CSTOWATNeutrophils3.571.56 - 6.45 x10(9)/L107/12/2024 5:13 PM CSTOWAT Lymphocytes1.260.95 - 3.07 x10(9)/L107/12/2024 5:13 PM CSTOWATMonocytes0.660.26 - 0.81 x10(9)/L107/12/2024 5:13 PM CSTOWATEosinophils0.290.03 - 0.48 x10(9)/L 05/11/2025 5:13 PM CSTOWATBasophils0.070.01 - 0.08 x10(9)/L107/12/2024 5:13 PM CSTOWATSpecimen (Source)Anatomical Location / LateralityCollection Method / VolumeCollection TimeReceived TimeBlood (Blood, Venous)05/11/2025 5:06 PM MATERIAL HANDLING CREW SUPERVISOR 05/11/2025 5:10 PM MATERIAL HANDLING CREW SUPERVISOR Narrative Authorizing ProviderResult TypeResult StatusCelestino Esposito P.A.-C., M.S.LAB BLOOD ADD-ONFinal ResultPerforming OrganizationAddressCity/State/ZIP CodePhone Number [facility] [address] [place] [address], [place] OW[facility] in [place] [address] [place] [address] * (ABNORMAL) Basic Metabolic Panel (05/11/2025 5:06 PM MATERIAL HANDLING CREW SUPERVISOR)ComponentValueRef RangeTest MethodAnalysis TimePerformed AtPathologist SignaturePotassium, P4.5 3.6 - 5.2 mmol/L107/12/2024 5:36 PM CSTOWATSodium, I738357 - 145 mmol/L 05/11/2025 5:36 PM CSTOWATChloride, [...] P9.38.8 - 10.2 mg/dL05/11/2025 5:36 PM CSTOWATGlucose, B68944 - 140 mg/dL05/11/2025 5:36 PM CSTOWATSpecimen (Source)Anatomical Location / LateralityCollection Method / VolumeCollection TimeReceived TimeBlood (Blood, Venous)05/11/2025 5:06 PM CST05/11/2025 5:10 PM MATERIAL HANDLING CREW SUPERVISOR Narrative Authorizing ProviderResult TypeResult StatusCelestino Esposito P.A.-C., M.S.LAB BLOOD ADD-ONFinal ResultPerforming OrganizationAddressCity/State/ZIP CodePhone Number [facility] [address] [place] [address], [place] [employer] [facility] in [place] [address] [place] [address] * US Lower Extremity Veins Bilateral (05/11/2025 5:00 PM MATERIAL HANDLING CREW SUPERVISOR)Anatomical Region LateralityModalityLower Extremity, Ultrasound RST LOS, Ultrasound ARZ LOS, Ultrasound FLA LOSBilateralUltrasoundSpecimen (Source)Anatomical Location / LateralityCollection Method / VolumeCollection TimeReceived Time Impressions 05/11/2025 5:10 PM MATERIAL HANDLING CREW SUPERVISOR Negative for acute DVT. 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 Diffuse soft tissue edema. Narrative 05/11/2025 5:10 PM MATERIAL HANDLING CREW SUPERVISOR EXAM: US LOWER EXTREMITY VEINS BILATERAL Exam [...] and management can be found on the [employer] site. Link [email or web address]://[facility] [email or web address]/topic/clinical-answers/[email or web address]/[facility]-[email or web address] Procedure Note Deuce Manjarrez M.D. - 05/11/2025 [...] thrombosis and management can be found on the[employer] site. Linkhttps://[facility] [place].[email or web address]/topic/clinical-answers/[email or web address]/[email or web address]-[email or web address] IMPRESSION: Negative for acute DVT. 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 Diffuse soft tissue edema. Authorizing ProviderResult TypeResult StatusCelestino Esposito P.A.-C., M.S.IM US PROCEDURESFinal Result * URO Urethral cath fill / remove / voiding trial (fill / pull) (05/09/2025 9:30 AM MATERIAL HANDLING CREW SUPERVISOR) Narrative Adilene Leon R.N. - 05/09/2025 9:30 AM MATERIAL HANDLING CREW SUPERVISOR Adilene Leon R.N. 05/09/2025 11:54 AM URO [...] POST-PROCEDURE DETAILS ?? Complications: no apparent complications Magana catheter will be replaced due to failed void trail. Authorizing ProviderResult TypeResult StatusSpencer Juana IngramUROLOGY ORDERABLESFinal Result * Bladder Catheterization (05/09/2025 9:30 AM MATERIAL HANDLING CREW SUPERVISOR) Narrative MMODAL - 05/09/2025 9:30 AM MATERIAL HANDLING CREW SUPERVISOR Adilene Leon R.N. 05/09/2025 11:54 AM Bladder [...] OrganizationAddressCity/State/ZIP Code Phone Number MMODAL NA * Bacterial Culture, Aerobic + Susceptibility, Urine (04/28/2025 5:02 PM MATERIAL HANDLING CREW SUPERVISOR) ComponentValueRef RangeTest MethodAnalysis TimePerformed AtPathologist SignatureUrine CultureMultiple organisms >10,000 cfu/mL present suggesting probable contamination. Susceptibilities will not be performed. 04/29/2025 4:39 PM CSTMKTOSpecimen (Source)Anatomical Location / Laterality Collection Method / VolumeCollection TimeReceived TimeUrine (Urine, Indwelling Catheter)04/28/2025 5:02 PM CST04/28/2025 7:02 PM CSTComment:Specimen Source Site: Urine Narrative Authorizing ProviderResult TypeResult StatusYe Stafford M.D.LAB MICROBIOLOGY - GENERAL ORDERABLESFinal ResultPerforming OrganizationAddressCity/State/ZIP Code Phone Number [facility] [address] [place] [address], [facility] MKTO [facility] [place] [address] [place] [address] * (ABNORMAL) Urinalysis, with Microscopic: Urine, Midstream (04/28/2025 5:02 PM MATERIAL HANDLING CREW SUPERVISOR)ComponentValueRef RangeTest MethodAnalysis TimePerformed AtPathologist SignatureSourceUrine, Urine, Qlqdlxilh67/21/2025 5:07 PM CSTOWATClarityCloudy (A)Clear04/28/2025 5:22 PM OLQIEBRHnckfAktdvh52/21/2025 5:22 PM CSTOWAT Comment: ----REFERENCE VALUE---- Colorless Yellow Lupis BloodSmall(A)Hyphovvd97/21/2025 5:22 PM CSTOWATNitrite, UPositive(A)Negative 04/28/2025 5:22 PM CSTOWATLeukocyte EsteraseLarge(A)Gtfumoly08/21/2025 5:22 PM CSTOWATProtein, U30(A)mg/dL04/28/2025 5:22 PM CSTOWATComment: ----REFERENCE VALUE---- Negative Trace GlucoseNegativeNegative mg/dL04/28/2025 5:22 PM CSTOWATKetoneNegativeNegative mg/dL04/28/2025 5:22 PM CBWTGGVMwxrxcclxFflxoswaXvutbbiv11/21/2025 5:22 PM MATERIAL HANDLING CREW SUPERVISOR OWATpH7.05.0 - 8.011 5:22 PM CSTOWATSpecific Gravity1.0141.001 - 1.035 04/28/2025 5:22 PM CSTOWATUrobilinogen0.20.2 - 1.0 mg/dL04/28/2025 5:22 PM MATERIAL HANDLING CREW SUPERVISOR OWATWhite Blood Cells>100(A)/hpf04/28/2025 5:22 PM CSTOWATComment: ----REFERENCE VALUE---- Males: 0-3 Females: 0-10 Unknown: 0-10 Red Blood Tpbmr08-77(A)0 - 2 /hpf04/28/2025 5:22 PM CSTOWATDysmorphic Red Blood Cells<=25<=25 %04/28/2025 5:22 PM CSTOWATMucusPresent/hpf04/28/2025 5:22 PM MATERIAL HANDLING CREW SUPERVISOR OWATBacteriaPresent(A)None Seen04/28/2025 5:22 PM CSTOWATSpecimen (Source) Anatomical Location / LateralityCollection Method / VolumeCollection Time Received TimeUrine (Urine, Midstream)04/28/2025 5:02 PM CST04/28/2025 5:02 PM MATERIAL HANDLING CREW SUPERVISOR Narrative Authorizing ProviderResult TypeResult StatusYe Stafford M.D.LAB URINE ORDERABLES Final ResultPerforming OrganizationAddressCity/State/[facility] CodePhone Number [facility] [address] [place] [address], [facility] [address] [place], [place] [address] * PSA (Prostate-Specific Antigen), Diagnostic (04/28/2025 4:58 PM MATERIAL HANDLING CREW SUPERVISOR)Component ValueRef RangeTest MethodAnalysis TimePerformed AtPathologist Signature Prostate-Specific [...] Collection TimeReceived TimeBlood (Blood, Venous)04/28/2025 4:58 PM MATERIAL HANDLING CREW SUPERVISOR 04/28/2025 5:02 PM MATERIAL HANDLING CREW SUPERVISOR Narrative Authorizing ProviderResult TypeResult Sugar Stafford M.D.LAB BLOOD ADD-ON Final ResultPerforming OrganizationAddressCity/[facility] CodePhone Number [facility] [address] [place] [address], [facility] in [place] [address] [place] [address] * DX Hip And Pelvis Right 2-3 Views (04/25/2025 1:09 PM MATERIAL HANDLING CREW SUPERVISOR) Only the most recent of2 resultswithin the time period is included. Anatomical RegionLateralityModalityLower Extremity, Pelvis, Hip, Musculoskeletal RST LOS, Musculoskeletal ARZ LOS, Muskuloskeletal FLALOSRightDigital RadiographySpecimen (Source)Anatomical Location / LateralityCollection Method / VolumeCollection TimeReceived Time Impressions 04/25/2025 1:29 PM MATERIAL HANDLING CREW SUPERVISOR Right BERT. The acetabular screw is proud to the iliac bone. No evidence of hardware failure or loosening. Left BERT. No pelvic fracture. Degenerative changes lower lumbar spine, SI joints, and pubic symphysis. Demineralization. Vascular calcifications. Narrative 04/25/2025 1:29 PM MATERIAL HANDLING CREW SUPERVISOR EXAM: DX HIP AND PELVIS RIGHT 2-3 VIEWS Procedure Note hPi Gonzales M.D. - 04/25/2025 EXAM: DX HIP AND PELVIS RIGHT 2-3 VIEWS IMPRESSION: Right BERT. The acetabular screw is proud to the iliac bone. No evidence of hardware failure or loosening. Left BERT. No pelvic fracture. Degenerativechanges lower lumbar spine, SI joints, and pubic symphysis.Demineralization. Vascular calcifications. Authorizing ProviderResult TypeResult StatusDavid Prabha Ward M.D.IMG DIAGNOSTIC IMAGING PROCEDURESFinal Result * US Lower Extremity Veins Right (03/21/2025 1:10 PM CDT)Anatomical Region LateralityModalityLower Extremity, Ultrasound RST LOS, Ultrasound ARZ LOS, Ultrasound FLA LOSRightUltrasoundSpecimen (Source)Anatomical Location / LateralityCollection Method / VolumeCollection TimeReceived Time Impressions 03/21/2025 1:15 PM CDT 1. Negative for acute DVT. 2. ??Chronic post thrombotic changes in the right common femoral vein. Narrative 03/21/2025 1:15 PM CDT EXAM: US LOWER EXTREMITY VEINS RIGHT Exam performed with color and spectral Doppler analysis. COMPARISON: None. FINDINGS: RIGHT: Common Femoral Vein: Chronic post thrombotic changes. Profunda Femoral Vein: Negative. Femoral Vein: Negative. Popliteal Vein: Negative. Gastrocnemius Veins: Negative where seen. Soleal Veins: Negative where seen. Posterior Tibial Veins: Negative where seen. Peroneal Veins: Negative where seen. Great Saphenous Vein: Negative where seen. Small Saphenous Vein: Not evaluated. Popliteal Fossa: Negative. Other: Subcutaneous edema about the calf Information on venous thrombosis and management can be found on the [employer] site. Link [email or web address] [email or web address].[email or web address]/topic/clinical-[email or web address]/[email or web address] Procedure Note Phi Gonzales M.D. - 03/21/2025 EXAM: US LOWER EXTREMITY VEINS RIGHT Exam performed with color and spectral Doppler analysis. COMPARISON: None. FINDINGS: RIGHT: Common Femoral Vein: Chronic post thrombotic changes. Profunda Femoral Vein: Negative. Femoral Vein: Negative. Popliteal Vein: Negative. Gastrocnemius Veins: Negative where seen. Soleal Veins: Negative where seen. Posterior Tibial Veins: Negative where seen. Peroneal Veins: Negative where seen. Great Saphenous Vein: Negative where seen. Small Saphenous Vein: Not evaluated. Popliteal Fossa: Negative. Other: Subcutaneous edema about the calf Information on venous thrombosis and management can be found on the[employer] site. Linkhttps://[facility] [email or web address].[email or web address]/topic/clinical-answers/[email or web address]/[email or web address]-[email or web address] IMPRESSION: 1. Negative for acute DVT. 2. 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 Authorizing ProviderResult TypeResult StatusSaju CONNELL PROCEDURESFinal Result from Last 3 Months Insurance * Guarantor: David Velez TypeRelation to PatientDate of PhoneBilling AddressPersonal/GikpbbHdrc41/26/1946 [address] [place] [address] Advance Directives For more information, please contact: [phone] * Full Code (Latest Code Status on File) Date ActivatedDate InactivatedComments01/05/2024 5:19 03/30/2025 3:24 PM QuestionAnswerCommentsFull Code:* Discussed Care Teams Team MemberRelationshipSpecialtyStart DateEnd Date Ye Stafford M.D. [address] [place] [phone] PCP - GeneralFamily Qtgylydy62/24/25
--- OUTSIDE RECORDS SUMMARY | 2025-06-03 07:00 | XMS_ITS | Encounter Summary ---
Author Organization [facility] Address [address] [place] [address] Care Team Providers Care Production Illustrator Name Role Phone Ye Stafford M.D. Primary Care Provider [phone] Reason for Visit * ReasonOnset DateCommentsLeg Dhzkweta85/03/2025 Encounter Details DateTypeDepartmentCare Team (Latest Contact Info)Vneogphlxah95/03/2025Nurse Triage Department of Family Medicine, [facility], in [place], [place] [address] [place] [address] Dario Loza R.N. [address] [place] [address] Leg Swelling Social History Tobacco UseTypesPacks/DayYears UsedDateSmoking Tobacco: FormerSmokeless [...] InformationValueDate RecordedSex Assigned at BirthNot on fileLegal CndZcih4307/10/2016 3:38 AM CSTGender IdentityNot on fileSexual OrientationNot on filedocumented as of this encounter Miscellaneous Notes * Telephone Encounter - Dario Loza R.N. - 05/10/2025 11:18 AM CST Chief Complaint / Reason for Call Patient is a 79 y.o. male calling regarding Leg Swelling. Assessment Concern: Right hip replaced in March minimal ongoing swelling, left knee replaced 1 year ago thispadecember. Now the left leg and foot are more swollen the past 2-4 weeks. Does have swelling behindboth knees and swelling down to ankle/foot. He feels he has moderate swelling. He denies pain, redness, fever, chest pain, shortness of breath, or feeling unwell. Present for: 2-4 weeks Home cares tried: Monitor Calling to request: Appointment The recommended disposition is See a health care provider within 4 hours.Recommended evaluation today, he is requesting an appointment for Thursday. He states he would go to the ED with any increased or change in symptoms/concerns. Patient was warm transferred to Marvin, Patient Appointment Home Economist at the clinic for further assistance. Reason for Disposition [1] Thigh, calf, or ankle swelling AND [2] bilateral AND [3] 1 side is more swollen Protocols used: Leg Swelling and Hezno-Jicje-MA Care Advice Patient/Caregiver understands and will follow care advice?: Yes, able to teach back Leg Swelling and Sqpou-Yimap-QT Nurse Dario Gutierrez May 10, 2025 11:26 AM Care Advice SEE HCP (OR PCP TRIAGE) WITHIN 4 HOURS: CALL EMS 911 IF: * Chest pain or shortness of breath occurs CALL BACK IF: * You become worse CARE ADVICE given per Leg Swelling and Edema (Adult) guideline. ING MACHINE OPERATOR documented in this encounter Plan of Treatment DateTypeDepartmentCare Team (Latest Contact Info)Zvzsdrgfwng23/30/2025 11:30 AM CSTProcedure visit Department of Urology in [place], [place] [address] [place] [phone] Silver Arias M.D. [address] [place] [phone] 06/09/2025 12:30 PM CSTAppointment Department of Laboratory Medicine in [address] [phone] Silver Arias M.D. [address] [place] [phone] 06/09/2025 1:30 PM CSTAppointment Department of Radiology in [place], [place] [address] [place] [phone] Silver Arias M.D. [address] [place] [phone] 07/12/2025 12:30 PM CSTProcedure visit Department of Urology in [address] [phone] Marvin Dumas M.D. [address] [place] [phone] Discharge Disposition: Home or Self Care07/12/2025 1:15 PM CSTOffice Visit Department of Urology in [address] [phone] Marvin Dumas M.D. [address] [place] [phone] Discharge Disposition: Home or Self Caredocumented as of this encounter Visit Diagnoses Not on filedocumented in this encounter Additional Health Concerns AssessmentNoted TimePHQ-9 Depression Total Score: 2:21 PM CURLING MACHINE OPERATOR documented as of this encounter Care Teams Team MemberRelationshipSpecialtyStart DateEnd Date Ye Stafford M.D. [address] [place] [phone] PCP - GeneralFamily Cokopqqa41/24/25documented as of this encounter
--- OUTSIDE RECORDS SUMMARY | 2025-06-03 07:00 | XMS_ITS | Encounter Summary ---
Author Organization [facility] Address [address] [place] [address] Care Team Providers Care Gas Check Pad Maker Name Role Phone None Reported, Pcp Primary Care Provider Unavail able Reason for Visit * ReasonOnset DateCommentsPandaDoc Form04/26/2025[facility] (order #[id number]) Encounter Details DateTypeDepartmentCare Team (Latest Contact Info)Yecqrexgfdh65/19/2025linical Communication Department of Family Medicine, , in [place], [place] [address], [place] [address] Ye Stafford M.D. [address] [place] [address] PandaDoc Form ([facility] (order #[id number])) Social History Tobacco UseTypesPacks/DayYears UsedDateSmoking Tobacco: FormerSmokeless [...] has the electric, gas, oil, or water Sina threatened to shut off services in your home?No01/06/2025Housing StabilityAnswerDate Recorded What is your living situation today?I have a steady place to live01/06/2025Sex and Gender InformationValueDate RecordedSex Assigned at BirthNot on fileLegal WviNtxp1707/10/2016 3:38 AM CSTGender IdentityNot on fileSexual OrientationNot on filedocumented as of this encounter Miscellaneous Notes * Telephone Encounter - Sandee Clifton - 04/28/2025 10:25 AM CST Completed form sent to scanning to place in chart Action by [facility] Forms Completion Team: [x] Faxed [] 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 SPECIALIST documented in this encounter Plan of Treatment DateTypeDepartmentCare Team (Latest Contact Info)Tfyhzegwnza10/30/2025 11:30 AM CSTProcedure visit Department of Urology in [place], [place] [address] [phone] Silver Arias M.D. [facility] [place] [address] 06/09/2025 12:30 PM CSTAppointment Department of Laboratory Medicine in [place], [place] [address] [address] Silver Arias M.D. [address] [place] [phone] 06/09/2025 1:30 PM CSTAppointment Department of Radiology in [place], [place] [address] [place] [phone] Silver Arias M.D. [address] [place] [phone] 07/12/2025 12:30 PM CSTProcedure visit Department of Urology in [address] [phone] Marvin Dumas M.D. [address] [place] [phone] Discharge Disposition: Home or Self Care07/12/2025 1:15 PM CSTOffice Visit Department of Urology in [address] [phone] Marvin Dumas M.D. [address] [place] [phone] Discharge Disposition: Home or Self Caredocumented as of this encounter Visit Diagnoses Not on filedocumented in this encounter Additional Health Concerns AssessmentNoted TimePHQ-9 Depression Total Score: 2:21 PM MIS SPECIALIST documented as of this encounter Care Teams Team MemberRelationshipSpecialtyStart DateEnd Date None Reported, Pcp PCP - GeneralFamily Jqznruxc29//documented as of this encounter
--- OUTSIDE RECORDS SUMMARY | 2025-06-03 07:00 | XMS_ITS | Encounter Summary ---
Author Organization [facility] Address [address] [place] [address] Care Team Providers Care Cottrell Blower Name Role Phone None Reported, Pcp Primary Care Provider Unavail able Reason for Visit * ReasonOnset DateCommentsPandaDoc Form04/26/2025[facility] (order #[id number]) Encounter Details DateTypeDepartmentCare Team (Latest Contact Info)Phplafjszce37/19/2025linical Communication Department of Family Medicine, [facility], in [place], [place] [address] [address] Ye Stafford M.D. [address] [place] [address] PandaDoc Form ([facility] (order #[id number])) Social History Tobacco UseTypesPacks/DayYears UsedDateSmoking Tobacco: FormerSmokeless [...] has the electric, gas, oil, or water [email or web address] threatened to shut off services in your home?No01/06/2025Housing StabilityAnswerDate Recorded What is your living situation today?I have a steady place to live01/06/2025Sex and Gender InformationValueDate RecordedSex Assigned at BirthNot on fileLegal AppBtuq9207/10/2016 3:38 AM CSTGender IdentityNot on fileSexual OrientationNot on filedocumented as of this encounter Miscellaneous Notes * Telephone Encounter - Sandee Clifton - 04/28/2025 10:23 AM CST Completed form sent to scanning to place in chart Action by [facility] Forms Completion Team: [x] Faxed [] 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 Form Name: [id number] David Velez ([facility] (order #[id number])) 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 GER OF CHANGE documented in this encounter Plan of Treatment DateTypeDepartmentCare Team (Latest Contact Info)Jvjyaghwerc10/30/2025 11:30 AM CSTProcedure visit Department of Urology in [place], [place] [address] [address] Silver Arias M.D. [facility] [place] [address] 06/09/2025 12:30 PM CSTAppointment Department of Laboratory Medicine in [place], [place] [address] [place] [address] Silver Arias M.D. [address] [place] [phone] 06/09/2025 1:30 PM CSTAppointment Department of Radiology in [place], [place] [address] [place] [phone] Silver Arias M.D. [address] [place] [phone] 07/12/2025 12:30 PM CSTProcedure visit Department of Urology in [address] [address] Marvin Dumas M.D. [address] [place] [phone] Discharge Disposition: Home or Self Care07/12/2025 1:15 PM CSTOffice Visit Department of Urology in [address] [address] Marvin Dumas M.D. [address] [place] [phone] Discharge Disposition: Home or Self Caredocumented as of this encounter Visit Diagnoses Not on filedocumented in this encounter Additional Health Concerns AssessmentNoted TimePHQ-9 Depression Total Score: 2:21 PM MANAGER OF CHANGE documented as of this encounter Care Teams Team MemberRelationshipSpecialtyStart DateEnd Date None Reported, Pcp PCP - GeneralFamily Vgjmknhl31//documented as of this encounter
--- OUTSIDE RECORDS SUMMARY | 2025-06-03 07:00 | XMS_ITS | Encounter Summary ---
Author Organization [facility] Address [address] [place] [address] Care Team Providers Care Nursery Manager Name Role Phone Ye Stafford M.D. Primary Care Provider [phone] Reason for Referral * Outpatient (Routine) - ClosedSpecialtyDiagnoses / ProceduresReferred By ContactReferred To Contact Diagnoses Retention Urinary Benign Prostatic Hyperplasia With Lower Urinary Tract Symptom Procedures URO Urethral cath fill / remove / voiding trial (fill / pull) Silver Arias M.D. [address] [place] [phone] Phone: tel: fax: [facility] Referral IDStatusReasonStart DateExpiration DateVisits RequestedVisits [id number]/21/20252/ NESS COMPUTERS TEACHER * Outpatient (Routine) - AuthorizedSpecialtyDiagnoses / ProceduresReferred By ContactReferred To ContactUrology Silver Arias M.D. [address] [place] [phone] Phone: tel: fax: Marvin Dumas M.D. [address] [place] [phone] Phone: tel: fax: Referral IDStatusReasonStart DateExpiration DateVisits RequestedVisits [id number]/21/20255/ NESS COMPUTERS TEACHER * Outpatient (Routine) - AuthorizedSpecialtyDiagnoses / ProceduresReferred By ContactReferred To Contact Diagnoses Retention Urinary Benign Prostatic Hyperplasia With Lower Urinary Tract Symptom Procedures URO Prostate US Silver Arias M.D. [address] [place] [phone] Phone: tel: fax: Referral IDStatusReasonStart DateExpiration DateVisits RequestedVisits [id number]/21/20252/21/202711 NESS COMPUTERS TEACHER * Outpatient (Routine) - AuthorizedSpecialtyDiagnoses / ProceduresReferred By ContactReferred To Contact Diagnoses Retention Urinary Benign Prostatic Hyperplasia With Lower Urinary Tract Symptom Procedures URO Cystoscopy (general) Silver Arias M.D. [address] [place] [address] Phone: tel: fax: [facility] Referral IDStatusReasonStart DateExpiration DateVisits RequestedVisits [id number]/21/20252/21/202711 NESS COMPUTERS TEACHER Reason for Visit * ReasonOnset AjfdVnnxmoqlWdzpjmmhfdkgb42/17/2025Urology Orders Encounter Details DateTypeDepartmentCare Team (Latest Contact Info)Dfapdifnvbj28/17/2025linical Communication Department of Urology in [place] [address] [place] [phone] Silver Arias M.D. [address] [place] [phone] Communication (Urology Orders) Social History Tobacco UseTypesPacks/DayYears UsedDateSmoking Tobacco: FormerSmokeless [...] InformationValueDate RecordedSex Assigned at BirthNot on fileLegal TxbZqao5907/10/2016 3:38 AM CSTGender IdentityNot on fileSexual OrientationNot on filedocumented as of this encounter Miscellaneous Notes * Telephone Encounter - Silver Arias M.D. - 04/28/2025 1:24 PM BUSINESS COMPUTERS TEACHER Please schedule patient for a fill and pull on approximately 05/09/2025, this can be at any Urologylocation (including [place] if this can be arranged). If he needs a catheter replaced, he will need monthly changes. I would like him to have a cystoscopy, prostate ultrasound, and consultation with Dr. Dumas in [place] for discussion of moving forward with a HoLEP procedure. NESS COMPUTERS TEACHER NESS COMPUTERS TEACHER * Telephone Encounter - Silver Arias M.D. - 04/24/2025 4:20 PM BUSINESS COMPUTERS TEACHER Coordinating appointment with Dr. Dumas and possibly [place]. He is due for catheter change around 05/09/25. Will attempt to coordinate that catheter change with cystoscopy. I am awaiting further communication prior to scheduling appointments, please update patient and we will contact him as soon as we have confirmation. Thank you. NESS COMPUTERS TEACHER NESS COMPUTERS TEACHER documented in this encounter Plan of Treatment DateTypeDepartmentCare Team (Latest Contact Info)Wagqmvoraze80/30/2025 11:30 AM CSTProcedure visit Department of Urology in [place], [place] [address] [place] [phone] Silver Arias M.D. [address] [place] [phone] 06/09/2025 12:30 PM CSTAppointment Department of Laboratory Medicine in [address] [phone] Silver Arias M.D. [address] [place] [phone] 06/09/2025 1:30 PM CSTAppointment Department of Radiology in [place], [place] [address] [place] [phone] Silver Arias M.D. [address] [place] [phone] 07/12/2025 12:30 PM CSTProcedure visit Department of Urology in [address] [address] Marvin Dumas M.D. [address] [place] [phone] Discharge Disposition: Home or Self Care07/12/2025 1:15 PM CSTOffice Visit Department of Urology in [address] [phone] Marvin Dumas M.D. [address] [place] [phone] Discharge Disposition: Home or Self CareNameTypePriorityAssociated Diagnoses Order ScheduleUrology office visit (clinic)Outpatient ReferralRoutineExpected: 04/28/2025, Expires: 07/29/2026documented as of this encounter Results * URO Urethral cath fill / remove / voiding trial (fill / pull) (05/09/2025 9:30 AM BUSINESS COMPUTERS TEACHER) Narrative Adilene Leon R.N. - 05/09/2025 9:30 AM BUSINESS COMPUTERS TEACHER Adilene Leon R.N. 05/09/2025 11:54 AM URO [...] to failed void trail. Authorizing ProviderResult TypeResult StatusSplindsay Arias M.D.UROLOGY ORDERABLESFinal Result documented in this encounter Visit Diagnoses Diagnosis Retention Urinary- Primary Benign Prostatic Hyperplasia With Lower Urinary Tract Symptom Retention Urinary Benign Prostatic Hyperplasia With Lower Urinary Tract Symptom documented in this encounter Additional Health Concerns AssessmentNoted TimePHQ-9 Depression Total Score: 2:21 PM BUSINESS COMPUTERS TEACHER documented as of this encounter Care Teams Team MemberRelationshipSpecialtyStart DateEnd Date Ye Stafford M.D. [address] [place] [phone] PCP - GeneralFamily Ehgxtdef14/24/25documented as of this encounter
--- OUTSIDE RECORDS SUMMARY | 2025-06-03 07:00 | XMS_ITS | Encounter Summary ---
Author Organization [facility] Address [address] [place] [address] Care Team Providers Care Technology Project Manager Name Role Phone Ye Stafford M.D. Primary Care Provider [phone] Encounter Details DateTypeDepartmentCare Team (Latest Contact Info)Xwaposvujjf53/24/2025Results Follow-Up Department of Family Medicine, [facility], in [place], [place] [address] [place] [address] Breanna Eng, MERRITT, C.N.P. [address], [place] [address] Urinalysis, with Microscopic: Urine, Midstream, Bacterial Culture, Aerobic + Susceptibility, Urine Social History Tobacco UseTypesPacks/DayYears UsedDateSmoking Tobacco: FormerSmokeless [...] InformationValueDate RecordedSex Assigned at BirthNot on fileLegal AysAyyf6707/10/2016 3:38 AM CSTGender IdentityNot on fileSexual OrientationNot on filedocumented as of this encounter Plan of Treatment DateTypeDepartmentCare Team (Latest Contact Info)Cclxxheorvi70/30/2025 11:30 AM CSTProcedure visit Department of Urology in [address] [address] Silver Arias M.D. [address] [place] [phone] 06/09/2025 12:30 PM CSTAppointment Department of Laboratory Medicine in [address] [address] Silver Arias M.D. [address] [place] [phone] 06/09/2025 1:30 PM CSTAppointment Department of Radiology in [address] [phone] Silver Arias M.D. [address] [place] [phone] 07/12/2025 12:30 PM CSTProcedure visit Department of Urology in [address] [phone] Marvin Dumas M.D. [address] [place] [phone] Discharge Disposition: Home or Self Care07/12/2025 1:15 PM CSTOffice Visit Department of Urology in [place], [place] [address] [place] [address] Marvin Dumas M.D. [address] [place] [address] Discharge Disposition: Home or Self CareNameTypePriorityAssociated Diagnoses Order ScheduleUrinalysis with Microscopic if Indicated: Urine, MidstreamLab Routine Benign Prostatic Hyperplasia Hypertrophy With Obstruction Expected: 05/01/2025 (Approximate), Expires: 08/01/2026acterial Culture, Aerobic + Susceptibility, UrineMicrobiologyRoutine Benign Prostatic Hyperplasia Hypertrophy With Obstruction Expected: 05/01/2025 (Approximate), Expires: 08/01/2026documented as of this encounter Visit Diagnoses Diagnosis Benign Prostatic Hyperplasia Hypertrophy With Obstruction- Primary documented in this encounter Additional Health Concerns AssessmentNoted TimePHQ-9 Depression Total Score: 2:21 PM HOSPITAL CHIEF EXECUTIVE OFFICER documented as of this encounter Care Teams Team MemberRelationshipSpecialtyStart DateEnd Date Ye Stafford M.D. [address] [phone] PCP - GeneralFamily Mmhwbhop40/24/25documented as of this encounter
--- OUTSIDE RECORDS SUMMARY | 2025-06-03 07:00 | XMS_ITS | Encounter Summary ---
Author Organization [facility] Address [address] [place] [address] Care Team Providers Care Compositor Apprentice Name Role Phone Unavailable Primary Care Provider Unavailabl e Reason for Visit * ReasonOnset DateCommentsPandaDoc Form04/18/2025[facility] [id number] Encounter Details DateTypeDepartmentCare Team (Latest Contact Info)Sigosqaxxqn04/11/2025linical Communication Department of Family Medicine, [facility], in [place], [place] [address], [place] [address] Ye Stafford M.D. [address] [place] [address] PandaDoc Form ([facility] Order [id number]) Social History Tobacco UseTypesPacks/DayYears UsedDateSmoking Tobacco: FormerSmokeless [...] RecordedIn the past 12 months has the [employer], gas, oil, or water company threatened to shut off services in your home?No01/06/2025Housing StabilityAnswerDate Recorded What is your living situation today?I have a steady place to live01/06/2025Sex and Gender InformationValueDate RecordedSex Assigned at BirthNot on fileLegal TbzJxoa4507/10/2016 3:38 AM CSTGender IdentityNot on fileSexual OrientationNot on filedocumented as of this encounter Miscellaneous Notes * Telephone Encounter - Elina Julian - 04/19/2025 4:38 PM CST Completed form sent to scanning to place in chart Action by [facility] Forms Completion Team: [x] Faxed [] 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 Stafford for electronic review/signature. SALES SPECIALIST: [facility] PHONE NUMBER: [phone] INFO REQUESTED: Order [id number] INSTRUCTIONS: Fax information to [phone] R STRAINING BAG WASHER documented in this encounter Plan of Treatment DateTypeDepartmentCare Team (Latest Contact Info)Elvxwhflvwn13/30/2025 11:30 AM CSTProcedure visit Department of Urology in [place], [place] [address] [address] Silver Arias M.D. [facility] [place] [address] 06/09/2025 12:30 PM CSTAppointment Department of Laboratory Medicine in [place], [place] [address] [address] Silver Arias M.D. [address] [place] [phone] 06/09/2025 1:30 PM CSTAppointment Department of Radiology in [place], [place] [address], [place] [address] Silver Arias M.D. [address] [place] [phone] 07/12/2025 12:30 PM CSTProcedure visit Department of Urology in [address] [address] Marvin Dumas M.D. [address] [place] [phone] Discharge Disposition: Home or Self Care07/12/2025 1:15 PM CSTOffice Visit Department of Urology in [address] [phone] Marvin Dumas M.D. [address] [place] [phone] Discharge Disposition: Home or Self Caredocumented as of this encounter Visit Diagnoses Not on filedocumented in this encounter Additional Health Concerns AssessmentNoted TimePHQ-9 Depression Total Score: 2:21 PM COLOR STRAINING BAG WASHER documented as of this encounter
--- OUTSIDE RECORDS SUMMARY | 2025-06-03 07:00 | XMS_ITS | Encounter Summary ---
Author Organization [facility] Address [address] [place] [address] Care Team Providers Care Analysis Specialist Name Role Phone Ye Stafford M.D. Primary Care Provider [phone] Reason for Visit * ReasonOnset DateCommentsPandaDoc Form05/02/2025[facility] (order [id number] Encounter Details DateTypeDepartmentCare Team (Latest Contact Info)Taqefqhnjww63/25/2025linical Communication Department of Family Medicine, [facility], in [place], [place] [address], [place] [address] Ye Stafford M.D. [address] [place] [address] PandaDoc Form ([facility] (order [id number]) Social History Tobacco UseTypesPacks/DayYears UsedDateSmoking Tobacco: FormerSmokeless [...] has the electric, gas, oil, or water [employer] threatened to shut off services in your home?No01/06/2025Housing StabilityAnswerDate Recorded What is your living situation today?I have a steady place to live01/06/2025Sex and Gender InformationValueDate RecordedSex Assigned at BirthNot on fileLegal OkfAzmy7807/10/2016 3:38 AM CSTGender IdentityNot on fileSexual OrientationNot on filedocumented as of this encounter Miscellaneous Notes * Telephone Encounter - Trena Arredondo - 05/17/2025 5:46 AM CST Form faxed back to facility and sent for scanning. X RAY TECH * Telephone Encounter - Trena Arredondo - 05/08/2025 7:59 AM CST notified facility provider is away X RAY TECH * Telephone Encounter - Trena Arredondo - 05/02/2025 8:47 AM CST Form was routed to Ye Stafford M.D. for electronic review/signature. SALES SERVICE REPRESENTATIVE: [facility] PHONE NUMBER: [phone] INFO REQUESTED: order [id number] INSTRUCTIONS: Fax information to [phone] X RAY TECH documented in this encounter Plan of Treatment DateTypeDepartmentCare Team (Latest Contact Info)Owlyoucjibi65/30/2025 11:30 AM CSTProcedure visit Department of Urology in [place], [place] [address] [place] [address] Silver Arias M.D. [facility] [place] [address] 06/09/2025 12:30 PM CSTAppointment Department of Laboratory Medicine in [place], [place] [address] [phone] Silver Arias M.D. [address] [place] [phone] 06/09/2025 1:30 PM CSTAppointment Department of Radiology in [place], [place] [address] [phone] Silver Arias M.D. [address] [place] [phone] 07/12/2025 12:30 PM CSTProcedure visit Department of Urology in [address] [phone] Marvin Dumas M.D. [address] [place] [phone] Discharge Disposition: Home or Self Care07/12/2025 1:15 PM CSTOffice Visit Department of Urology in [address] [address] Marvin Dumas M.D. [address] [place] [phone] Discharge Disposition: Home or Self Caredocumented as of this encounter Visit Diagnoses Not on filedocumented in this encounter Additional Health Concerns AssessmentNoted TimePHQ-9 Depression Total Score: 2:21 PM X RAY TECH documented as of this encounter Care Teams Team MemberRelationshipSpecialtyStart DateEnd Date Ye Stafford M.D. [address] [address] PCP - GeneralFamily Ylscxljb19/24/25documented as of this encounter
--- OUTSIDE RECORDS SUMMARY | 2025-06-03 07:00 | XMS_ITS | Encounter Summary ---
Author Organization [facility] Address [address] [place] [address] Care Team Providers Care Suppository Molding Machine Operator Name Role Phone None Reported, Pcp Primary Care Provider Unavail able Reason for Visit * ReasonOnset DateCommentsPandaDoc Form04/26/2025[facility] (order #[id number]) Encounter Details DateTypeDepartmentCare Team (Latest Contact Info)Gttvqyltbkm48/19/2025linical Communication Department of Family Medicine, [facility], in [place], [place] [address] [place] [address] Ye Stafford M.D. [address] [place] [address] PandaDoc Form ([facility] (order #[id number]) ) Social History Tobacco UseTypesPacks/DayYears UsedDateSmoking Tobacco: FormerSmokeless [...] has the electric, gas, oil, or water [employer] threatened to shut off services in your home?No01/06/2025Housing StabilityAnswerDate Recorded What is your living situation today?I have a steady place to live01/06/2025Sex and Gender InformationValueDate RecordedSex Assigned at BirthNot on fileLegal PrzHynh9007/10/2016 3:38 AM CSTGender IdentityNot on fileSexual OrientationNot on filedocumented as of this encounter Miscellaneous Notes * Telephone Encounter - Sandee Clifton - 04/28/2025 10:18 AM CST Completed form sent to scanning to place in chart Action by 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 EMENT CENTRE MANAGER documented in this encounter Plan of Treatment DateTypeDepartmentCare Team (Latest Contact Info)Mqutbtmozbi15/30/2025 11:30 AM CSTProcedure visit Department of Urology in [place], [place] [address] [address] Silver Arias M.D. [address] [place] [phone] 06/09/2025 12:30 PM CSTAppointment Department of Laboratory Medicine in [place], [place] [address] [place] [address] Silver Arias M.D. [address] [place] [phone] 06/09/2025 1:30 PM CSTAppointment Department of Radiology in [place], [place] [address] [place] [phone] Silver Arias M.D. [address] [place] [phone] 07/12/2025 12:30 PM CSTProcedure visit Department of Urology in [address] [address] Marvin Dumas M.D. [address] [place] [phone] Discharge Disposition: Home or Self Care07/12/2025 1:15 PM CSTOffice Visit Department of Urology in [address] [phone] Marvin Dumas M.D. [address] [place] [phone] Discharge Disposition: Home or Self Caredocumented as of this encounter Visit Diagnoses Not on filedocumented in this encounter Additional Health Concerns AssessmentNoted TimePHQ-9 Depression Total Score: 2:21 PM AMUSEMENT CENTRE MANAGER documented as of this encounter Care Teams Team MemberRelationshipSpecialtyStart DateEnd Date None Reported, Pcp PCP - GeneralFamily Bvqjfvpm46//documented as of this encounter
--- OUTSIDE RECORDS SUMMARY | 2025-06-03 07:00 | XMS_ITS | Encounter Summary ---
Author Organization [facility] Address [address] [place] [address] Care Team Providers Care Paperback Machine Operator Name Role Phone Ye Stafford M.D. Primary Care Provider [phone] Reason for Referral * Outpatient (Routine) - AuthorizedSpecialtyDiagnoses / ProceduresReferred By ContactReferred To Contact Diagnoses Retention Urinary Benign Prostatic Hyperplasia With Lower Urinary Tract Symptom Procedures URO Cystoscopy (general) Silver Arias M.D. [address] [place] [address] Phone: tel: fax: [facility] Region Referral IDStatusReasonStart DateExpiration DateVisits RequestedVisits [id number] TANKER CAPTAIN * Outpatient (Routine) - AuthorizedSpecialtyDiagnoses / ProceduresReferred By ContactReferred To Contact Diagnoses Retention Urinary Benign Prostatic Hyperplasia With Lower Urinary Tract Symptom Procedures URO Urethral cath change (UCC) Silver Arias M.D. [address] [place] [address] Phone: tel: fax: [facility] Referral IDStatusReasonStart DateExpiration DateVisits RequestedVisits [id number] TANKER CAPTAIN Encounter Details DateTypeDepartmentCare Team (Latest Contact Info)Uawvpxmyjsl65/03/2025linical Communication Department of Urology in [place], [place] [address] [place] [address] Silver Arias M.D. [address] [place] [address] Social History Tobacco UseTypesPacks/DayYears UsedDateSmoking Tobacco: FormerSmokeless [...] has the electric, gas, oil, or water Ante Up threatened to shut off services in your home?No01/06/2025Housing StabilityAnswerDate Recorded What is your living situation today?I have a steady place to live01/06/2025Sex and Gender InformationValueDate RecordedSex Assigned at BirthNot on fileLegal HnrHwgf0207/10/2016 3:38 AM CSTGender IdentityNot on fileSexual OrientationNot on filedocumented as of this encounter Miscellaneous Notes * Telephone Encounter - Silver Arias M.D. 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 I spoke with Dr. Dumas regarding his case. If he is interested in moving forward with surgery, I would like him to do a cystoscopy and CT scan to measure his prostate. He will also need an office visit with Dr. Dumas. Catheter changes and cystoscopy can either be done in [place], or in [place] with his next catheter change, at his preference. Just have him let us know so we can place appropriate orders. TANKER CAPTAIN documented in this encounter Plan of Treatment DateTypeDepartmentCare Team (Latest Contact Info)Fdqlmllnngr11/30/2025 11:30 AM CSTProcedure visit Department of Urology in [address] [phone] Sivler Arias M.D. [address] [place] [phone] 06/09/2025 12:30 PM CSTAppointment Department of Laboratory Medicine in [address] [address] Silver Arias M.D. [address] [place] [phone] 06/09/2025 1:30 PM CSTAppointment Department of Radiology in [address] [address] Silver Arias M.D. [address] [place] [phone] 07/12/2025 12:30 PM CSTProcedure visit Department of Urology in [address] [address] Marvin Dumas M.D. [address] [place] [phone] Discharge Disposition: Home or Self Care07/12/2025 1:15 PM CSTOffice Visit Department of Urology in [address] [place] [address] Marvin Dumas M.D. [address] [place] [address] Discharge Disposition: Home or Self CareNameTypePriorityAssociated Diagnoses Order ScheduleURO Urethral cath change (UCC) ProcedureRoutine Retention Urinary Benign Prostatic Hyperplasia With Lower Urinary Tract Symptom monthly for 12 Occurrences starting 05/10/2025 until 08/08/2026documented as of this encounter Visit Diagnoses Diagnosis Retention Urinary- Primary Benign Prostatic Hyperplasia With Lower Urinary Tract Symptom documented in this encounter Additional Health Concerns AssessmentNoted TimePHQ-9 Depression Total Score: 2:21 PM OIL TANKER CAPTAIN documented as of this encounter Care Teams Team MemberRelationshipSpecialtyStart DateEnd Date Ye Stafford M.D. [address] [place] [address] PCP - GeneralFamily Uxtlqteg47/24/25documented as of this encounter
[2025-06-03 07:16] VITALS: BP 141/75; PULSE 70; RESP 18; TEMP 36.3; O2SAT 97; BMI 33.2
--- NOTE | 2025-06-03 07:59 | ED.GENADULT ---
HPI - General Adult General Date Seen: 06/03/25 Chief complaint: Abdominal Pain Stated complaint: abdominal pain/diarrhea/shortness of breath Time Seen by Provider: 06/03/25 07:59 History of Present Illness HPI narrative: 79 yo M with a past medical history of DVT, hypertension, coronary artery disease, carotid artery stenosis, previous history of lower extremity cellulitis. He also recently underwent right hip replacement (performed about a month or month and a half ago at [facility]). Is recovering well from that. Hit a few weeks at a rehab center now has now been at. After his surgery he had urinary retention since he now has an indwelling Lemus catheter. He has has plans to undergo some workup for enlarged prostate, and apparently will be seeing a specialist in a couple of weeks. He says he has been doing quite well. He is up and moving. He is back home. His hip is healing well. He did have some trouble with bilateral lower extremity edema after surgery. Apparently his doctors took him off hydrochlorothiazide and his swelling is been much better since then. Per medical record he was seen here in the ER in August 2024 for abdominal pain and diarrhea that had woken him from sleep in the middle of the night. Workup revealed negative C diff, white count of 10.5, hemoglobin 15.6, sodium 142, potassium 4.0, BUN 25, creatinine 1.2. CT scan showed findings compatible with enterocolitis. Moderate dilation of the small bowel up to 6.7 cm without a clear transition point. Likely ileus due to infection or inflammation. He went to a [employer] green party on , 2 days ago. Was feeling well. The following morning, yesterday he woke up and started having diarrhea. He had multiple episodes of brown watery, chunky diarrhea throughout the day, at least 1 every hour 3. Also beginning yesterday evening he started to develop some generalized diffuse abdominal pain and bloating. The pain was quite intense and kept him from sleeping last night. He was up several times to have diarrhea through the night and even had to put a towel in his bed because sometimes he would have urgent need to defecate small volumes of liquid. He is not having a fever. He has been quite nauseous but not vomiting. No blood or mucus in his stool. When I inquire about how this episode compares to his episode last August, he really does recall. His Lemus catheter has been in draining well overnight. He says he has been eating or drinking much but he is making urine. No bloody or cloudy urine. Related Data Home Medications ?Medication ?Instructions ?Recorded ?Confirmed apixaban 5 mg tablet (Eliquis) 5 mg PO BID 01/03/22 09/05/24 hydrochlorothiazide 25 mg tablet 12.5 mg PO QAM 01/03/22 09/05/24 lisinopril 40 mg tablet 40 mg PO QDAY 01/03/22 09/05/24 aspirin 81 mg tablet,delayed 81 mg PO DAILY 10/17/23 09/05/24 release (Adult Low Dose Aspirin) atorvastatin .Route 10/17/23 tamsulosin 0.4 mg capsule (Flomax) 0.4 mg PO DAILY 10/17/23 10/17/23 Previous Rx's ?Medication ?Instructions ?Recorded terbinafine HCl 1 % topical cream 1 applic topical BID #30 grams 09/28/23 pantoprazole 20 mg tablet,delayed 20 mg PO DAILY #20 tabs 10/17/23 release (Protonix) tramadol 50 mg tablet 50 mg PO Q6H PRN pain #20 tabs 10/17/23 cephalexin 500 mg capsule 500 mg PO QID #28 caps 11/12/23 pantoprazole 20 mg tablet,delayed 20 mg PO DAILY #30 tabs 11/12/23 release Allergies Allergy/AdvReac Type Severity Reaction Status Date / Time No Known Allergies Allergy Verified 06/03/25 07:15 [facility] Medical History History of DVT (deep vein thrombosis) ?Z86.718 - Personal history of other venous thrombosis and embolism (ICD-10) Short of breath on exertion ?R06.02 - Shortness of breath (ICD-10) Pulmonary air embolism ?T79.0XXA - Air embolism (traumatic), initial encounter (ICD-10) Infection due to severe acute respiratory syndrome coronavirus 2 (SARS-CoV-2) ?U07.1 - COVID-19 (ICD-10) Hypertension ?I10 - Essential (primary) hypertension (ICD-10) Deep vein thrombosis (DVT) of right lower extremity ?I82.401 - Acute embolism and thrombosis of unspecified deep veins of right lower extremity (ICD-10) Bradycardia ?R00.1 - Bradycardia, unspecified (ICD-10) Atrial bigeminy ?I49.8 - Other specified cardiac arrhythmias (ICD-10) Social History Smoking Status: Former smoker Do you use any of these nicotine containing products: None Second hand tobacco smoke exposure: No How often do you have a drink containing alcohol: never How often do you have six or more drinks on one occasion: Never AUDIT-C Alcohol total score: 0 Non-prescribed substance use: denies use service: Yes Exam Narrative: Exam Narrative: Constitutional: Appears well-developed and well-nourished. Alert. Conversant and polite. Uncomfortable, but nontoxic. HENT: Head: Atraumatic. Nose: Nose normal. Mouth/Throat: Oral mucosa is clear. Mucous members are dry but not desiccated or cracked no trismus. Pharynx normal. Tonsils symmetric. No tonsillar enlargement, erythema, or exudate. Eyes: Conjunctivae normal. EOM normal. Pupils equal, round, and reactive to light. No scleral icterus. Neck: Normal range of motion. Neck supple. No tracheal deviation present. Cardiovascular: Normal rate, regular rhythm. No gallop. No friction rub. No murmur heard. Symmetric radial artery pulses Pulmonary/Chest: Effort normal. No stridor. No respiratory distress. No wheezes. No rales. No rhonchi . No tenderness. Abdominal: Soft. Bowel sounds normal. No distension. No mass. Periumbilical and epigastric tenderness. No point right upper quadrant or right lower quadrant tenderness. No left lower quadrant tenderness. He does have a midline ventral hernia which is prominent when he sits up but then reduces when he lays flat. Does not appear to be incarcerated. No rebound. No guarding. : Lemus catheter in place. Draining to a leg bag on his right leg. Musculoskeletal: RUE: Normal range of motion. No tenderness. No deformity LUE: Normal range of motion. No tenderness. No deformity RLE: Normal range of motion. No edema. No tenderness. No deformity LLE: Normal range of motion. No edema. No tenderness. No deformity Neurological: Alert and oriented to person, place, and time. Normal strength. CN II-VII intact. No sensory deficit. GCS eye subscore is 4. GCS verbal subscore is 5. GCS motor subscore is 6. Normal coordination Skin: Skin is warm and dry. No rash noted. No pallor. Normal capillary refill. Psychiatric: Normal mood. Normal affect. Const: Vital Signs, click to edit/add: Vital Signs - 24 hr 06/03/25 07:16 06/03/25 08:53 Temperature 97.3 F L Pulse Rate [Pulse Oximeter] 70 64 Respiratory Rate 18 16 Blood Pressure [Ri ght Upper Arm] 141/75 H 149/74 H Pulse Oximetry 97 96 Oxygen Delivery Me thod Room Air Room Air Course Course ED Course: Recheck-patient says he is feeling better. No further diarrhea since arrival. Repeat exam is still mildly distended but much less tender than arrival. Reevaluation(s) Reevaluation #1: Recheck-patient tolerated p.o. challenge with crackers and water well. He was up to the bathroom and did have a small volume liquidy brown stool. This was obtained and sent for stool culture and C diff. Results pending. Vital Signs Vital signs: Initial Vital Signs Temperature 97.3 F L 06/03/25 07:16 Temperature Source Temporal Artery Scan 06/03/25 07:16 Pulse Rate 70 06/03/25 07:16 Respiratory Rate 18 06/03/25 07:16 Blood Pressure 141/75 H 06/03/25 07:16 Blood Pressure Mean 97 06/03/25 07:16 Pulse Oximetry 97 06/03/25 07:16 Oxygen Delivery Method Room Air 06/03/25 07:16 Vital Signs Temperature 97.3 F L 06/03/25 07:16 Pulse Rate 70 06/03/25 07:16 Respiratory Rate 18 06/03/25 07:16 Blood Pressure 141/75 H 06/03/25 07:16 Pulse Oximetry 97 06/03/25 07:16 Oxygen Delivery Method Room Air 06/03/25 07:16 Temperature 97.3 F L 06/03/25 07:16 Pulse Rate 64 06/03/25 08:53 Respiratory Rate 16 06/03/25 08:53 Blood Pressure 149/74 H 06/03/25 08:53 Pulse Oximetry 96 06/03/25 08:53 Oxygen Delivery Method Room Air 06/03/25 08:53 Medications Administered Medications: Discontinued Medications Generic Name Dose Route Start Last Admin Trade Name Jany PRN Reason Stop Dose Admin Sodium Chloride 1,000 mls @ 1,000 mls/hr 06/03/25 08:30 06/03/25 10:25 0.9 % Sodium Chloride 1000 Ml IV 06/03/25 09:29 Infused .Q1H PRANAV Infusion Medical Decision Making MDM Narrative Medical decision making narrative: This patient presents with multiple episodes of liquidy brown diarrhea beginning yesterday morning and throughout the night overnight, also associated with generalized abdominal bloating and discomfort that kept him up all night long, prompting his visit to the ER this morning. He does think he probably ate something at his [employer] celebration 2 days ago and that triggered his illness.. The patient's symptoms and exam could be consistent with a viral GI infection. There is no high fever, severe pain, bilious or bloody emesis, blood or mucous in the stool, severe abdominal pain, or other concerning signs for a bacterial infection. e However given medical comorbidities and recent hospitalization for hip replacement (in [place]) with current indwelling Lemus, he has risk factors for C diff and other bacterial pathogens. We did obtain labs, CT imaging, and further workup. I don't see any evidence for appendicitis, colitis abscess, bowel perforation. CT read is questionable for possible mild developing bowel obstruction but that is not consistent with the patient's clinical symptoms being prominently diarrhea. He actually is having stools here in the ER and is not vomiting, is not having progressive pain or bloating and is tolerating p.o. intake. Clinically the patient's symptoms are not consistent with a bowel obstruction or other surgical emergency. Labs show no concerning electrolyte disturbance or renal failure. After fluids given the patient is feeling better. At this point, the patient is non-septic appearing and well hydrated.I think the patient can be managed as an outpatient. We have discussed oral rehydration strategies. They understand and can perform the needed interventions at home. Would hold off on anti motility drugs for now until we definitively rule out C diff for other bacterial enteritis. Would recommend close outpatient follow-up with PCP within 24-48 hours and/or return to the ER for repeat lab workup. Precautions for return to the ER reviewed. We have discussed the signs and symptoms of worsening dehydration. They understand the need for immediate reevaluation if any of these symptoms occur. Lab Data Labs: Lab Results 06/03/25 06/03/25 06/03/25 Range/Units 07:32 08:27 08:34 WBC (4.50-11.00) K/uL RBC (4.30-5.90) m/uL Hgb (13.5-17.5) gm/dL Hct (37.0-53.0) % MCV (80-100) fL MCH (26-34) pg MCHC (32-36) gm/dL RDW Coeff of Ashley (11.5-15.5) % Plt Count (140-440) K/uL Neut % (Auto) (42.0-72.0) % Lymph % (Auto) (20-44) % [place] % (Auto) (0.0-11.0) % Eos % (Auto) (0.0-7.0) % Baso % (Auto) (0.0-3.0) % Neut # (Auto) (1.7-7.0) K/uL Lymph # (Auto) (0.90-2.90) K/uL [place] # (Auto) (0.00-0.90) K/UL Eos # (Auto) (0.00-0.50) K/uL Baso # (Auto) (0.00-0.30) K/uL Abs Immat Gran (auto) (0.00-0.30) K/uL Imm/Tot Granulo (auto) % Sodium (135-149) mmol/L Potassium (3.6-5.1) mmol/L Chloride (96-114) mmol/L Carbon Dioxide (20-32) mmol/L Anion Gap (7-15) mEq/L BUN (7-30) mg/dL Creatinine (0.5-1.5) mg/dL Estimated Creat Clear Estimated GFR ml/min Glucose (60-115) mg/dL Lactate (0.5-1.9) mmol/L Calcium (8.4-10.6) mg/dL Total Bilirubin (0.1-1.5) mg/dL AST (12-35) U/L ALT (4-50) U/L Alkaline Phosphatase (40-150) U/L Total Protein (6.0-8.3) g/dL Albumin (3.3-5.0) g/dL Lipase (23-300) U/L Stl C. diff Tox B Gene Negative (Negative) Stl C. diff 027-NAP1-BI PRESUMPTIVE NEGATIVE (Negative) SARS-CoV-2 (PCR) Negative SARS-CoV-2 (Negative) Influenza Type A (PCR) Negative PCR FLU A (Negative) Influenza Type B (PCR) Negative PCR FLU B (Negative) RSV (PCR) Negative PCR RSV (Negative) POC Creatinine 1.1 (0.6-1.3) mg/dl 06/03/25 Range/Units 08:44 WBC 8.11 (4.50-11.00) K/uL RBC 4.51 (4.30-5.90) m/uL Hgb 12.3 L (13.5-17.5) gm/dL Hct 41.7 (37.0-53.0) % MCV 93 (80-100) fL MCH 27 (26-34) pg MCHC 30 L (32-36) gm/dL RDW Coeff of Ashley 15.4 (11.5-15.5) % Plt Count 229 (140-440) K/uL Neut % (Auto) 78.6 H (42.0-72.0) % Lymph % (Auto) 13.8 L (20-44) % [place] % (Auto) 6.3 (0.0-11.0) % Eos % (Auto) 0.6 (0.0-7.0) % Baso % (Auto) 0.5 (0.0-3.0) % Neut # (Auto) 6.40 (1.7-7.0) K/uL Lymph # (Auto) 1.10 (0.90-2.90) K/uL [place] # (Auto) 0.50 (0.00-0.90) K/UL Eos # (Auto) 0.05 (0.00-0.50) K/uL Baso # (Auto) 0.04 (0.00-0.30) K/uL Abs Immat Gran (auto) 0.02 (0.00-0.30) K/uL Imm/Tot Granulo (auto) 0.2 % Sodium 137 (135-149) mmol/L Potassium 4.1 (3.6-5.1) mmol/L Chloride 107 (96-114) mmol/L Carbon Dioxide 22 (20-32) mmol/L Anion Gap 8 (7-15) mEq/L BUN 26 (7-30) mg/dL Creatinine 1.1 (0.5-1.5) mg/dL Estimated Creat Clear 57.81 Estimated GFR 67 ml/min Glucose 130 H (60-115) mg/dL Lactate 1.4 (0.5-1.9) mmol/L Calcium 9.7 (8.4-10.6) mg/dL Total Bilirubin 0.8 (0.1-1.5) mg/dL AST 20 (12-35) U/L ALT 18 (4-50) U/L Alkaline Phosphatase 116 (40-150) U/L Total Protein 7.2 (6.0-8.3) g/dL Albumin 4.1 (3.3-5.0) g/dL Lipase 68 (23-300) U/L Stl C. diff Tox B Gene (Negative) Stl C. diff 027-NAP1-BI (Negative) SARS-CoV-2 (PCR) (Negative) Influenza Type A (PCR) (Negative) Influenza Type B (PCR) (Negative) RSV (PCR) (Negative) POC Creatinine (0.6-1.3) mg/dl Discharge Plan Discharge Clinical Impression: Diarrhea, Abdominal pain Patient Disposition: Home, Self-Care Condition: Stable Instructions: Acute Diarrhea (ED), Abdominal Pain (ED) Additional Instructions: As we discussed, please return to the ER right away if you have problems-especially if you have worsening pain, fever, bloody stool, weakness, vomiting or dehydration. Please recheck with your regular doctor (or come back to the ER if you are not able to see her regular doctor) within 24-48 hours. Back to the ER right away if you get worse. Prescriptions: No Action hydrochlorothiazide 25 mg tablet 12.5 mg PO QAM Eliquis 5 mg tablet 5 mg PO BID lisinopril 40 mg tablet 40 mg PO QDAY atorvastatin .Route tamsulosin [Flomax] 0.4 mg capsule 0.4 mg PO DAILY aspirin [Adult Low Dose Aspirin] 81 mg tablet,delayed release (DR/EC) 81 mg PO DAILY tramadol 50 mg tablet 50 mg PO Q6H PRN (Reason: pain) Qty: 20 0RF pantoprazole [Protonix] 20 mg tablet,delayed release (DR/EC) 20 mg PO DAILY Qty: 20 2RF terbinafine HCl 1 % cream 1 applic topical BID Qty: 30 0RF pantoprazole 20 mg tablet,delayed release (DR/EC) 20 mg PO DAILY Qty: 30 2RF cephalexin 500 mg capsule 500 mg PO QID Qty: 28 0RF Follow Up/Referrals: Provider,Not a Local [Primary Care Provider, Family Practice] Stand Alone Forms: Data [employer] Info Instructions
[2025-06-03 08:16] LABS: PCR FLU A Negative PCR FLU A (Negative); PCR FLU B Negative PCR FLU B (Negative); PCR RSV Negative PCR RSV (Negative); SARS PCR* Negative SARS-CoV-2 (Negative)
--- NOTE | 2025-06-03 08:27 | CRLHL7_ITS ---
For Patients: As a result of the Century Cures Act, medical imaging exams and procedure reports are released immediately into your electronic medical record. You may view this report before your referring provider. If you have questions, please contact your health care provider. Indication: Epigastric and periumbilical abdominal pain, bloating and diarrhea Technique: Volumetric multidetector CT images of the abdomen and pelvis were obtained after the administration of intravenous contrast. 119 cc Isovue 370 low osmolar intravenous contrast Comparison: CT abdomen and pelvis with contrast September 05, 2024 Findings: There are small basilar pleural effusions with adjacent compressive atelectasis and likely mild pulmonary vascular congestion. The liver is normal in attenuation without intrahepatic biliary ductal dilatation. The portal vein is patent. The gallbladder is unremarkable without evidence of radiopaque calculus. There is no significant common biliary ductal dilatation or abrupt cut off. The spleen is normal in enhancement and size. The stomach and duodenum are grossly unremarkable. The pancreas is normal in enhancement without significant atrophy. Again seen is a mildly bulky left adrenal gland. The kidneys demonstrate cystic changes with otherwise preserved corticomedullary differentiation. We There are markedly dilated fluid-filled loops of central small bowel with additional fluid filled proximal colon. The appendix is unremarkable. There is no significant mesenteric, retroperitoneal, or pelvic sidewall lymph nodes. The aorta is nonaneurysmal with [id number] atherosclerotic calcification. There is a Lemus catheter within the urinary bladder. There is new free fluid seen tracking along the right pericolic gutter and central pelvis with additional minimal fluid seen in the left inguinal canal. There is mild diastasis of the rectus muscles. The lumbar vertebral body heights are grossly maintained in satisfactory alignment without evidence of displaced fracture, lytic or blastic lesion. Impression: 1. Moderately dilated fluid-filled central small bowel commensurate with likely developing obstruction. Trace reactive ascites fluid is seen. 2. Small basilar pleural effusions with adjacent compressive atelectasis and likely superimposed pulmonary vascular congestion. Please note that all CT scans at this facility use dose modulation, iterative reconstruction, and/or weight-based dosing when appropriate to reduce radiation dose to as low as reasonably achievable. Dictated by Parrish Flaherty MD @ 06/03/2025 10:14:30 AM (Electronically Signed)
[2025-06-03 08:49] LABS: Lactate* 1.4 mmol/L (0.5-1.9)
[2025-06-03 08:50] LABS: Hematocrit* 41.7 % (37.0-53.0); Hemoglobin* 12.3 gm/dL (13.5-17.5); Immature Granulocytes Abs Auto 0.02 K/uL (0.00-0.30); Immature Granulocytes Pct Auto 0.2 %; Mean Corpuscular HGB Conc 30 gm/dL (32-36); Mean Corpuscular Hemoglobin 27 pg (26-34); Mean Corpuscular Volume 93 fL (80-100); RDW Coefficient of Variation % 15.4 % (11.5-15.5); Red Blood Count* 4.51 m/uL (4.30-5.90); White Blood Count* 8.11 K/uL (4.50-11.00)
[2025-06-03 08:51] LABS: Creatinine, Point-of-Care* 1.1 mg/dl (0.6-1.3)
[2025-06-03 08:52] LABS: Lymphocytes Absolute Auto 1.10 K/uL (0.90-2.90); Slide Review Reflex No
[2025-06-03 08:53] VITALS: BP 149/74; PULSE 64; RESP 16; O2SAT 96
[2025-06-03 09:07] LABS: Albumin* 4.1 g/dL (3.3-5.0); Chloride* 107 mmol/L (96-114); Sodium* 137 mmol/L (135-149)
[2025-06-03 09:08] LABS: Potassium* 4.1 mmol/L (3.6-5.1)
[2025-06-03 09:10] LABS: Alanine Aminotransferase* 18 U/L (4-50); Alkaline Phosphatase* 116 U/L (40-150); Anion Gap 8 mEq/L (7-15); Aspartate Amino Transferase* 20 U/L (12-35); Bilirubin Total* 0.8 mg/dL (0.1-1.5); Blood Urea Nitrogen* 26 mg/dL (7-30); Calcium* 9.7 mg/dL (8.4-10.6); Carbon Dioxide* 22 mmol/L (20-32); Creatinine* 1.1 mg/dL (0.5-1.5); Est. Creatinine Clearance* 57.81; Estimated Glomerular Filt Rate 67 ml/min; Glucose* 130 mg/dL (60-115); Total Protein* 7.2 g/dL (6.0-8.3)
[2025-06-03 11:24] LABS: C.Difficile Negative (Negative); CDIFFEPI 027 PRESUMPTIVE NEGATIVE (Negative)
== END 2025-06-03 11:48 | disposition home or self-care (01) ==
PROVIDERS: Emergency Provider Emergency Medicine
DX: R19.7 Diarrhea, unspecified (principal); R06.02 Shortness of breath; I10 Essential (primary) hypertension; I25.10 Atherosclerotic heart disease of native coronary artery without angina pectoris; Z86.718 Personal history of other venous thrombosis and embolism; Z79.01 Long term (current) use of anticoagulants; Z98.890 Other specified postprocedural states; Z96.641 Presence of right artificial hip joint; Z96.0 Presence of urogenital implants; Z87.891 Personal history of nicotine dependence
CPT/HCPCS: 36415; 74177; 80053; 82565; 83605; 83690; 85025; 87045; 87046; 87427; 87493; 87631; 96360; 99283; 99284; 99285; J7030; Q9967